=== PATIENT | male | born 1955 | race Caucasian/White ===

== ENCOUNTER 2021-02-08 12:35 | Outpatient (CLI) | payer MEDICARE, SELFPAY ==
--- NOTE | 2021-02-12 11:19 | WPDNEUROLOGY ---
Neurology EEG Report General Information Date of Study: 02/08/21 TEST EEG DIAGNOSIS SEIZURES CONDITION OF RECORDING awake drowsy and sleep EEG NUMBER [id number] CLINICAL HISTORY patient has ongoing history of multiple sclerosis and at present experiencing episodic nausea and feeling of having to have a bowel movements and also sweating. Last for few minutes then is fine again EEG DESCRIPTION basic resting occipital frequency consists of medium voltage 8 to 9 hertz per second alpha admixed with low-voltage 15 to 18 hertz per second beta. During drowsiness low-voltage beta activity seen diffusely. Bilateral symmetrical sleep activity seen during sleep. Non paroxysmal. Nonfocal. Nonlateralizing. Hyperventilation not done. Photic stimulation produced normal drive IMPRESSION normal record
== END 2021-02-08 12:36 | disposition home or self-care (01) ==
PROVIDERS: Visit Provider Psychiatry & Neurology Neurology
DX: R56.9 Unspecified convulsions (principal)
CPT/HCPCS: 95816

== ENCOUNTER 2023-02-07 13:02 | Outpatient (CLI) | payer MEDICARE, SELFPAY ==
[2023-02-07 13:55] LABS: Basophils Absolute Auto 0.1 K/mm3 (0.0-0.1); Basophils Percent Auto 0.6 % (0.2-1.2); Eosinophils Absolute Auto 0.1 K/mm3 (0-0.3); Eosinophils Percent Auto 0.7 % (0-4.4); Hematocrit 57.3 % (42.0-52.0); Hemoglobin 18.3 g/dL (14.0-18.0); Immature Granulocyte Absolute 0.03 K/mm3 (0.00-0.031); Immature Granulocyte Percent A 0.2 % (0-0.5); Lymphocytes Absolute Auto 2.79 K/mm3 (0.9-3.2); Lymphocytes Percent Auto 23.2 % (18.3-44.2); Mean Corpuscular HGB Conc 31.9 g/dl (32-36); Mean Corpuscular Hemoglobin 30.7 pg (26-34); Mean Corpuscular Volume 96.1 fl (80-100); Mean Platelet Volume 9.6 fl (7.4-10.4); Monocytes Absolute Auto 0.9 K/mm3 (0.1-0.6); Monocytes Percent Auto 7.6 % (2.6-8.5); Neutrophils Absolute Auto 8.1 K/mm3 (1.3-6.7); Neutrophils Percent Auto 67.7 % (45.5-73.1); Platelet Count Result 245 k/mm3 (150-375); Red Blood Count 5.96 M/mm3 (4.6-6.20); Red Cell Distribution Width 13.7 % (11.5-14.5)
[2023-02-07 15:53] LABS: Alanine Aminotransferase 24 U/L (6-50); Albumin Level 4.2 g/dL (3.5-5.1); Alkaline Phosphatase 67 U/L (38-126); Anion Gap 7 mmol/L (8-16); Aspartate Amino Transferase 23 U/L (17-59); Bilirubin,Total 0.7 mg/dL (0.2-1.3); Blood Urea Nitrogen 7 mg/dL (9-20); Calcium 8.6 mg/dL (8.4-10.2); Carbon Dioxide 28 mmol/L (22-30); Chloride 103 mmol/L (98-107); Cholesterol 162 mg/dL (0-200); Estimated Glomerular Filt Rate > 60; Glucose 83 mg/dL (65-110); HDL Direct 56 mg/dL; Potassium 4.3 mmol/L (3.4-5.0); Sodium 138 mmol/L (137-145); Triglycerides 91 mg/dL (<150)
[2023-02-07 16:13] LABS: LDL Cholesterol Direct 80 mg/dL
[2023-02-07 16:32] LABS: Prostate Specific Antigen 1.1 ng/mL (< OR = 4.0); Thyroid Stimulating Hormone 0.324 uIU/mL (0.465-4.680)
== END 2023-02-07 13:03 | disposition home or self-care (01) ==
PROVIDERS: PCP Physician Assistant; Visit Provider Physician Assistant
DX: R53.83 Other fatigue (principal); Z12.5 Encounter for screening for malignant neoplasm of prostate; I10 Essential (primary) hypertension
CPT/HCPCS: 36415; 80053; 80061; 84153; 84443; 85025; G0103

== ENCOUNTER 2024-09-01 11:23 | Outpatient (CLI) | payer MEDICARE, SELFPAY ==
[2024-09-01 12:19] LABS: Cholesterol 191 mg/dL (0-200); HDL Direct 53 mg/dL; Triglycerides 105 mg/dL (<150)
[2024-09-01 12:29] LABS: LDL Cholesterol Direct 112 mg/dL
[2024-09-01 12:44] LABS: Iron 112 ug/dL (49-181)
[2024-09-01 12:49] LABS: Prostate Specific Antigen 1.3 ng/mL (< OR = 4.0); Thyroid Stimulating Hormone 0.282 uIU/mL (0.465-4.680)
[2024-09-01 12:54] LABS: Percent Iron Saturation 34 % (20-50)
[2024-09-01 13:26] LABS: Folic Acid > 20.0 ng/mL (2.76->20)
[2024-09-03 05:58] LABS: T3 Free 3.4 pg/mL (2.3-4.2)
== END 2024-09-01 11:24 | disposition home or self-care (01) ==
PROVIDERS: PCP Physician Assistant; Visit Provider Internal Medicine
DX: R53.83 Other fatigue (principal); E05.90 Thyrotoxicosis, unspecified without thyrotoxic crisis or storm; I10 Essential (primary) hypertension; Z12.5 Encounter for screening for malignant neoplasm of prostate; D64.9 Anemia, unspecified; R79.89 Other specified abnormal findings of blood chemistry
CPT/HCPCS: 36415; 80061; 82607; 82746; 83540; 83550; 84153; 84439; 84443; 84480; G0103

== ENCOUNTER 2025-07-26 13:25 | Inpatient (IN) | payer MEDICARE, SELFPAY ==
--- OUTSIDE RECORDS SUMMARY | 2025-06-30 19:00 | XMS_ITS | Continuity of Care Document ---
Author Organization [facility] Address [address] [place] [phone] Phone Care Team Providers Care Precision Instrument Maker Name Role Phone Tejinder KEATING, FACC, Rohit Unavailable Unavail able Procedures Procedure Date ELECTROCARDIOGRAM REPORT EXTRACRANIAL STUDY TTE W/DOPPLER, COMPLETE Advance Directives Directive Yes / No Effective Date File Name No Information Encounters Encounter Description Practice Location Reason(s) For Visit Diagnoses Date Provider Providers Copied on Encounter [facility], [address] [place] [address], [id number], tel:[phone] [facility] Inpt No Information Tejinder Bee. [address] [place] [address], [id number], . tel:[phone] Referring Provider: Rohit Hatch, [address] [place] [address], [id number]. tel:[phone] [facility], [address] [place] [address], [id number], tel:[phone] [facility] OP No Information Tejinder Bee. [address] [place] [address], [id number], . tel:[phone] Referring Provider: Rohit Hatch, [address] [place], [place] [address] [place], [address]. tel:[phone] [facility], [address] [place] [address], [id number], tel:[phone] [facility] OP No Information Tejinder Bee. [address], [place], [place], [id number], . tel:[phone] Referring Provider: Rohit Hatch, [address], [place], [address]. tel:[phone] Family History Family Member Type Diagnosis Age At Onset No Information Payers Payer name Insurance type Covered democrat ID Authoriza tianaid(s) [facility] MEDICARE ADVANTAGE HMO [id number] 5 Social History Type Description Quantity Date [...]
[2025-07-26] VITALS (31 sets, daily range): BP systolic 84–113; BP diastolic 52–71; PULSE 87–107; RESP 16–31; TEMP 36.6–37.1; O2SAT 88–100
--- NOTE | ~2025-07-26 | XR_ITS ---
Abdominal radiograph(s) INDICATION: Ileus COMPARISON: CT abdomen and pelvis one day prior TECHNIQUE: Supine and upright AP abdomen FINDINGS: Colonic gaseous distention. Distal small bowel gaseous distention. No air-fluid levels but lower abdomen obscured by shielding. Rectal stool ball persists. IMPRESSION: 1. Persistent ileus. 2. No air-fluid levels but lower abdomen obscured by shielding. 3. Recommend continued x-ray surveillance if indicated. Reviewed, dictated and finalized at location R.
--- NOTE | ~2025-07-26 | XR_ITS ---
EXAMINATION: XR chest 1V portable DATE: 08/07/2025 14:27 INDICATION: Hypoxia TECHNIQUE: frontal view of the chest was obtained. COMPARISON: Chest radiograph dated 07/31/[address] dated 08/04/2025 FINDINGS: Mild increased lucency upper lung zones consistent with emphysema better appreciated on prior CT. Calcified nodule at the right costophrenic angle consistent with old granulomatous disease. Increased interstitial pattern with some peripheral Fahad B-lines in the bilateral lower lung zones consistent with mild pulmonary edema. There are additional linear and bandlike opacities in bilateral lower lung zones and would favor atelectasis over pneumonia. No pneumothorax. Mild blunting at the left cardiophrenic angle consistent with small left pleural effusion. Heart size is normal. IMPRESSION: 1. Mild increased interstitial opacities and a few curly B-lines at the bilateral lower lungs consistent with mild pulmonary edema. 2. Predominantly linear and bandlike opacities at the bilateral lower lung zones and favor atelectasis over pneumonia. 3. Small left pleural effusion. 4. Mild emphysema. Reviewed, dictated and finalized at location A. IMPRESSION: 1. Mild increased interstitial opacities and a few curly B-lines at the bilater al lower lungs consistent with mild pulmonary edema. 2. Predominantly linear and bandlike opacities at the bilateral lower lung zone s and favor atelectasis over pneumonia. 3. Small left pleural effusion. 4. Mild emphysema.
--- NOTE | ~2025-07-26 | XR_ITS ---
XR chest 1V portable 07/26/2025 15:12 Indication: Sepsis Procedure: AP portable chest Comparison: No prior studies for comparison. Findings: Cardiomegaly. No focal air space disease, pulmonary edema, pleural effusion or suspected pneumothorax. The lungs are hyperinflated which is consistent with, but not diagnostic of chronic obstructive pulmonary disease. No acute osseous abnormality. Impression: 1: No acute cardiopulmonary disease. Reviewed, dictated and finalized at location O. Impression: 1: No acute cardiopulmonary disease.
--- NOTE | ~2025-07-26 | CT_ITS ---
EXAMINATION: CT abdomen pelvis w con DATE: 08/09/2025 12:20 INDICATION: Abdominal distention TECHNIQUE: Computed tomography (CT) of the abdomen and pelvis was performed with 100 mL Omnipaque-350 intravenous contrast. Automated exposure control and iterative reconstruction technique were employed. The dose-length product was 485.41 mGy-cm. COMPARISON: 07/26/2025 FINDINGS: Moderate emphysema bilateral lung bases. Calcified right lower lobe nodule consistent with old granulomatous disease. Small bilateral posterior layering pleural effusions with dependent atelectasis in both lower lobes. Heart size is normal. Atherosclerotic coronary artery calcific location. No pericardial effusion. Small sliding-type hiatal hernia. Liver, gallbladder, spleen, pancreas, bilateral adrenal glands and right kidney are normal. 2 cm left renal cyst. Mondragon catheter within the decompressed bladder which demonstrates wall thickening and mild stranding surrounding fat suspicious for cystitis. Moderate amount of distal predominant colonic stool with 6.6 cm diameter ball of stool the rectum. There is mild stranding in the perirectal and presacral fat consistent with secondary stercoral colitis. Small bowel and appendix are normal. Minimal scattered ascites with largest pocket measuring 2.8 x 1.6 cm along the anteromedial margin of the spleen. No abscess or free intraperitoneal gas. No pathologically enlarged abdominal or pelvic lymphadenopathy. Intertrochanteric/subtrochanteric fracture of the proximal right femur which is fixed with an antegrade intramedullary boo and interlocking femoral neck dynamic compression screw. Mild lumbar levocurvature with mild spondylosis. IMPRESSION: 1. Emphysema with small bilateral pleural effusions and dependent compressive atelectasis in the bilateral lower lobes. 2. Inflammatory stranding surrounding the rectum where there is a 6.6 cm ball of stool suggestive of stercoral colitis. 3. Bladder wall thickening with some additional stranding in the surrounding fat suspicious for cystitis. Correlate with urinalysis. 4. Small sliding-type hiatal hernia. Reviewed, dictated and finalized at location A. IMPRESSION: 1. Emphysema with small bilateral pleural effusions and dependent compressive a telectasis in the bilateral lower lobes. 2. Inflammatory stranding surrounding the rectum where there is a 6.6 cm ball o f stool suggestive of stercoral colitis. 3. Bladder wall thickening with some additional stranding in the surrounding fa t suspicious for cystitis. Correlate with urinalysis. 4. Small sliding-type hiatal hernia.
--- NOTE | ~2025-07-26 | XR_ITS ---
EXAMINATION: XR chest 1V portable 08/08/2025 14:59 INDICATION: Shortness of breath TECHNIQUE:Portable AP upright frontal COMPARISON: 07/31/2025 FINDINGS: Heart is enlarged, unchanged. No pneumothorax. Small left-sided pleural effusion similar to the prior study. Small to moderate-sized patchy opacities in the left mid and lower lungs similar to the prior study. Small patchy opacities in the right mid and lower lungs similar to the prior study. Stable small calcified granuloma in the right lower lung. IMPRESSION: 1: Small left-sided pleural effusion similar to the prior study. Consider a chest CT. 2. Small to moderate-sized patchy opacities in the left mid and lower lungs similar to the prior study. Recommend follow-up to resolution. 3. Small patchy opacities in the right mid and lower lungs similar to the prior study. Reviewed, dictated and finalized at location Q. IMPRESSION: 1: Small left-sided pleural effusion similar to the prior study. Consider a ch est CT. 2. Small to moderate-sized patchy opacities in the left mid and lower lungs si milar to the prior study. Recommend follow-up to resolution. 3. Small patchy opacities in the right mid and lower lungs similar to the prio r study.
--- NOTE | ~2025-07-26 | XR_ITS ---
EXAMINATION: XR abdomen/kub 1V DATE: 08/08/2025 14:59 INDICATION: Abdominal distention. Nausea. TECHNIQUE: A supine view of the abdomen on 2 radiographs was obtained. COMPARISON: None. FINDINGS: Hardware is noted in the fracture of the proximal right femur. Correlate clinically. Bones appear osteopenic. Patchy opacities in the visualized left lower lung. Possible small left-sided pleural effusion. Moderate amount of air in nondilated large bowel. There is air in mildly dilated small bowel loops in the left abdomen. IMPRESSION: 1. Mildly dilated air-filled loops of small bowel in the left abdomen. Differential includes ileus or developing small bowel obstruction. Consider a CT of the abdomen and pelvis for further assessment. 2.Hardware is noted in the fracture of the proximal right femur. Correlate clinically. 3.Patchy opacities in the visualized left lower lung. Possible small left-sided pleural effusion. Reviewed, dictated and finalized at location Q. IMPRESSION: 1. Mildly dilated air-filled loops of small bowel in the left abdomen. Differen tial includes ileus or developing small bowel obstruction. Consider a CT of the abdomen and pelvis for further assessment. 2.Hardware is noted in the fracture of the proximal right femur. Correlate clin ically. 3.Patchy opacities in the visualized left lower lung. Possible small left-sided pleural effusion.
--- NOTE | ~2025-07-26 | CT_ITS ---
EXAMINATION: CTA chest DATE: 08/04/2025 21:45 INDICATION: Hypoxia. TECHNIQUE: Computed tomography angiography (CTA) of the chest was performed with 100 mL Omnipaque-350 intravenous contrast timed to evaluate the pulmonary arteries. Coronal maximum intensity projection 3D-reconstructions were created by the technologist. Automated exposure control and iterative reconstruction technique were employed. The dose-length product was 511.21 mGy-cm. COMPARISON: CT abdomen and pelvis 07/26/2025 FINDINGS: There is mild emphysema. There is smooth septal thickening lungs, consistent with mild pulmonary edema. There is dependent atelectasis bilaterally. There are small pleural effusions. There are nodules in the thyroid measuring up to 7 mm, likely not clinically significant. The heart size is no rmal. There are coronary artery calcifications. No pericardial effusion. There is no pulmonary embolus. There is a 2.1 cm cyst in left kidney. There is mild thoracic spondylosis. IMPRESSION: 1. No pulmonary embolus. 2. Mild pulmonary edema. 3. Small pleural effusions. 4. Mild emphysema. Reviewed, dictated and finalized at location E.
--- NOTE | ~2025-07-26 | CT_ITS ---
EXAMINATION: CT abdomen pelvis w con DATE: 07/26/2025 18:24 INDICATION: Assess depth of sacral ulcer. TECHNIQUE: Computed tomography (CT) of the abdomen and pelvis was performed with intravenous contrast. The dose-length product was 415.71 mGy-cm. COMPARISON: None. FINDINGS: Lung bases unremarkable. Heart size normal. No significant pleural or pericardial effusion. Study limited by motion. Fatty infiltration of the liver. The spleen, pancreas, adrenal glands and right kidney are unremarkable. There is a left renal cyst. There is fluid throughout the small bowel with air-fluid levels, consistent with ileus. Mondragon catheter present in the bladder. There is fatty infiltration with associated soft tissue gas in the posterior soft tissues at the level of the ischium, compatible with ulceration. No discrete drainable fluid collection identified. The mild phlegmonous change extends 2.2 cm deep to the skin surface, best seen on images [id number]. There is moderate colonic fecal loading in the rectum. There is a right femoral dynamic compression screw transfixing the femoral neck. There is an age-indeterminate proximal femoral fracture transfixed by intramedullary boo and compression screw. No significant vascular abnormality. No lymphadenopathy. IMPRESSION: 1. Small focal ulceration with mild inflammatory change involving the posterior soft tissues just below the coccyx. No drainable fluid collection identified. 2: Moderately distended small bowel and colon with air-fluid levels, consistent with ileus. Reviewed, dictated and finalized at location O.
--- NOTE | ~2025-07-26 | CT_ITS ---
EXAMINATION: CT brain wo con DATE: 07/26/2025 22:55 INDICATION: Confusion TECHNIQUE: Computed tomography (CT) of the head was performed without intravenous contrast. Sagittal and coronal reconstructions were performed. The mA was adjusted according to patient size. Iterative reconstruction technique was employed. The dose-length product was 756.67 mGy-cm. COMPARISON: None FINDINGS: No acute intracranial hemorrhage, acute infarction or abnormal extra axial fluid collection. There is moderate scattered white matter hypoattenuation consistent with chronic small vessel ischemic disease. Symmetric prominence of the sulci and ventricles consistent with mild to moderate age-appropriate diffuse cerebral and cerebellar volume loss. No mass/mass effect. Mild mucosal thickening in the left sphenoid sinus. The orbits and mastoid air cells are normal. IMPRESSION: 1. Age-related changes including mild to moderate diffuse volume loss and moderate scattered white matter hypoattenuation consistent with chronic small vessel ischemic disease. No acute intracranial process. Reviewed, dictated and finalized at location A. IMPRESSION: 1. Age-related changes including mild to moderate diffuse volume loss and moder ate scattered white matter hypoattenuation consistent with chronic small vessel ischemic disease. No acute intracranial process.
--- NOTE | ~2025-07-26 | XR_ITS ---
Examination: XR chest 1V portable Clinical History: hypoxia Comparison: 07/26/2025 Technique: Portable AP Findings: Heart size enlarged. Retrocardiac opacity and CP angle blunting. Mildly increased interstitial markings. No acute bony abnormality. IMPRESSION: 1. Left basilar atelectasis and/or airspace disease. 2. Small left effusion not excluded. 3. Suspect developing mild interstitial pulmonary edema. Reviewed, dictated and finalized at location R.
--- NOTE | ~2025-07-26 | XR_ITS ---
EXAMINATION: XR abdomen obstructive series DATE: 07/28/2025 10:58 INDICATION: Ileus TECHNIQUE: Supine and upright views of the abdomen. FINDINGS: 07/27/2025 There is left lower lobe airspace disease, suspicious for pneumonia. Small left pleural effusion.. There is a nonobstructive bowel gas pattern. Gas and stool are seen throughout the colon to the level of the rectum. There is no free air. There is prominent fecal loading of the colon and rectum. IMPRESSION: 1. Left lower lobe airspace disease, suspicious for pneumonia. 2: Small left pleural effusion. Reviewed, dictated and finalized at location O.
--- NOTE | ~2025-07-26 | XR_ITS ---
Abdominal radiograph(s) INDICATION: Nausea, constipation COMPARISON: 5 days prior TECHNIQUE: Supine AP abdomen, upright AP abdomen FINDINGS: Retrocardiac opacity probably persists. Scattered colonic gas, and stool distally. Small bowel gaseous distention. No air-fluid levels noted but upright film only contains uppermost abdomen. No evidence of organomegaly. No abnormal abdominal calcifications. No acute bony abnormality. IMPRESSION: 1. No acute findings. 2. No increased stool burden to suggest large volume constipation. Reviewed, dictated and finalized at location R.
--- NOTE | 2025-07-26 14:41 | ECG_ITS ---
Test Date: 2025-07-26 15:23:21 Measurements Intervals [place] Rate: 107 P: 70 MO: 139 QRS: 80 QRSD: 81 T: 19 QT: 311 QTc: 415 Interpretive Statements SINUS TACHYCARDIA ABNORMAL RHYTHM ECG No previous ECG available for comparison Electronically Signed On 07-26-2025 15:57:09 CDT by Dulce Maria Faust M.D.
[2025-07-26 15:26] LABS: Fractional Inspired Oxygen 21 %; HCO3 VBG 31.1 mEq/l (24.0-30.0); PCO2 VBG 47.0 mmHg (42.0-48.0)
[2025-07-26 15:34] LABS: Hematocrit 44.8 % (42.0-52.0); Hemoglobin 13.9 g/dL (14.0-18.0); Immature Granulocyte Percent A 1.8 % (0-0.5); Lymphocytes Absolute Auto 1.90 K/mm3 (0.9-3.2); Mean Corpuscular HGB Conc 31.0 g/dl (32-36); Mean Corpuscular Hemoglobin 28.9 pg (26-34); Mean Corpuscular Volume 93.1 fl (80-100); Nucleated Red Blood Cells Absolute Auto 0.000 K/mm3 (0.0-0.012); Nucleated Red Blood Cells Perc 0.0 % (0.0-0.2); Platelet Count Result 369 k/mm3 (150-375); Red Blood Count 4.81 M/mm3 (4.6-6.20); White Blood Count 17.5 K/mm3 (4.5-10.0)
[2025-07-26 15:38] LABS: Liters per Minute 0.0 LPM; PO2 VBG < 27.0 mmHg (35.0-45.0); pH VBG 7.439 (7.300-7.400)
[2025-07-26 15:45] LABS: Alanine Aminotransferase 112 U/L (6-50); Albumin Level 3.0 g/dL (3.5-5.1); Alkaline Phosphatase 285 U/L (38-126); Anion Gap 5 mmol/L (4-12); Aspartate Amino Transferase 44 U/L (17-59); Bilirubin,Total 0.6 mg/dL (0.2-1.3); Blood Urea Nitrogen 14 mg/dL (9-20); Calcium 8.3 mg/dL (8.4-10.2); Carbon Dioxide 30 mmol/L (22-30); Chloride 98 mmol/L (98-107); Estimated CRCL calculation 109 ml/min; Estimated Glomerular Filt Rate > 60; Glucose 113 mg/dL (65-110); Magnesium 2.0 mg/dL (1.6-2.3); Potassium 4.5 mmol/L (3.4-5.0); Sodium 133 mmol/L (137-145); Total Protein 6.5 g/dL (6.3-8.2)
[2025-07-26] MEDS: metroNIDAZOLE 500 MG/ISO 100ML 500 MG/100 ML BAG 100 MG IVPB ×2 (15:56→22:04)
[2025-07-26] MEDS: LACTATED RINGERS 100 ML 999 ML IV CONT (15:58)
[2025-07-26] MEDS: LACTATED RINGERS 1,000 ML 999 ML IV CONT ×2 (15:58)
[2025-07-26] MEDS: CEFEPIME 2 GM in SODIUM CHLORIDE 0.9% IV 50 ML 100 ML IVPB (16:01)
--- NOTE | 2025-07-26 16:06 | ED.RECABL ---
HPI - Recheck/Abnormal Lab/Rx General Chief Complaint: Recheck/Abnormal Lab/Rx Stated Complaint: infected feet/sacrum Time Seen by Provider: 07/26/25 13:31 History of Present Illness HPI narrative: This is a 69-year-old bed-bound care home patient presenting for altered mental status. Per the care home he is more confers than usual. He has decubitus ulcers to his heels as well as a large sacral decubitus ulcer. Patient himself has no complaints and is A&O x3. Related Data Home Medications ?Medication ?Instructions ?Recorded ?Confirmed ?Last Taken ?Type diphenhydramine HCl 25 mg tablet 25 mg PO QHS PRN 08/06/22 03/06/25 Unknown History (Benadryl Allergy) Allergies Allergy/AdvReac Type Severity Reaction Status Date / Time No Known Allergies Allergy Verified 03/02/25 14:55 [facility] Past Medical History Medical History BMI 22.0-22.9, adult Abnormal gait Surgical History Surgical History Hx of tonsillectomy Family History Family History Father Liver cancer Mother No problems noted. Sibling No problems noted. Social History Social History Smoking packs per day: 1.5 Smoking cigarettes per day: 30.0 Years smoked: 50 Smoking pack-years: 75.00 Smoking status: Current every day smoker Second hand tobacco smoke exposure: Yes Alcohol intake: current Substance use: never Substance use type: does not use Do You Feel Safe in your Home?: Yes Lack of Transportation: No Lack of Food: Never True Current Housing: I Have Housing Concerned About Future Housing: No Difficulty Paying Gas/Electric Bills: No Difficulty Paying for Meds: No Currently Unemployed: No Education: High School Diploma/GED Difficulty w/ Childcare or Family Care: No Living arrangements: alone Occupation/Education: retired Additional occupation/education comments: [employer] Gender identity (if verbalized by the patient): Male Exam Narrative: APPEARANCE: No apparent distress. Head: atraumatic. EYES: EOMI, NOSE: Atraumatic NECK: Trachea midline RESPIRATORY: No increased rate of breathing CTAB CARDIOVASCULAR: RRR, no peripheral edema ABDOMINAL: Non-distended soft nontender MUSCULOSKELETAl: No obvious deformities NEURO: Alert. Moving 4/4 extremities SKIN:: Large unstageable foul smelling sacral ulcer, stage II pressure ulcer to the lateral right foot, stage II pressure ulcer to the left heel, stage II pressure ulcer to the left hip, bruising to the right hip PSYCHIATRIC: Normal affect Course Vital Signs Vital signs: Vital Signs Temperature 97.9 F 07/26/25 13:26 Pulse Rate 102 H 07/26/25 13:26 Respiratory Rate 16 07/26/25 13:26 Blood Pressure 113/71 07/26/25 13:26 Pulse Oximetry 96 07/26/25 13:26 Oxygen Delivery Nasal Cannula 07/26/25 13:26 Oxygen Flow Rate 2 07/26/25 13:26 Temperature 98.7 F 07/26/25 16:11 Pulse Rate 89 07/26/25 17:43 Respiratory Rate 20 07/26/25 17:43 Blood Pressure 108/56 L 07/26/25 17:43 Pulse Oximetry 97 07/26/25 17:43 Oxygen Delivery Nasal Cannula 07/26/25 13:26 Oxygen Flow Rate 2 07/26/25 13:26 MDM - Recheck/Abnormal Lab/Rx MDM Narrative Medical decision making narrative: -Course: 69-year-old male presenting with altered mental status. Patient has multiple pressure ulcers and the ulcer on his sacrum appears infected. On arrival patient's blood pressures are soft and 91/67 although this was not documented by nursing staff. Patient given 30 cc/kilogram bolus. Started on antibiotics for infected ulcer. Wound Care was consulted. CT abdomen pelvis showed a decubitus ulcer without abscess. Also possible ileus. White count 17.5. Lactic normal. The rest the labs within normal limits. Patient will be admitted the hospital for further management his infected sacral decubitus ulcer. General surgery is been consult. -DDX includes but is not limited to: Infected ulcer, sepsis dehydration UTI pneumonia Lab Data 07/26/25 15:26 07/26/25 15:26 Labs: Lab Results 07/26/25 07/26/25 07/26/25 Range/Units 15:19 15:26 17:18 WBC 17.5 H (4.5-10.0) K/mm3 RBC 4.81 (4.6-6.20) M/mm3 Hgb 13.9 L D (14.0-18.0) g/dL Hct 44.8 (42.0-52.0) % MCV 93.1 (80-100) fl MCH 28.9 (26-34) pg MCHC 31.0 L (32-36) g/dl RDW 14.1 (11.5-14.5) % Plt Count 369 D (150-375) k/mm3 MPV 9.9 (7.4-10.4) fl Immature Gran % (Auto) 1.8 H (0-0.5) % Neut % (Auto) 76.9 H (45.5-73.1) % Lymph % (Auto) 10.8 L (18.3-44.2) % [place]lee % (Auto) 6.8 (2.6-8.5) % Eos % (Auto) 3.2 (0-4.4) % Baso % (Auto) 0.5 (0.2-1.2) % Lymph # (Auto) 1.90 (0.9-3.2) K/mm3 Greenlee # (Auto) 1.2 H (0.1-0.6) K/mm3 Eos # (Auto) 0.6 H (0-0.3) K/mm3 Baso # (Auto) 0.1 (0.0-0.1) K/mm3 Abs Immat Gran (auto) 0.32 H (0.00-0.031) K/mm3 Absolute Neuts (auto) 13.5 H (1.3-6.7) K/mm3 Absolute Nucleated RBC 0.000 (0.0-0.012) K/mm3 Nucleated RBC % 0.0 (0.0-0.2) % Sodium 133 L (137-145) mmol/L Potassium 4.5 (3.4-5.0) mmol/L Chloride 98 (98-107) mmol/L Carbon Dioxide 30 (22-30) mmol/L Anion Gap 5 (4-12) mmol/L BUN 14 D (9-20) mg/dL Creatinine 0.54 L (0.7-1.3) mg/dL Estim Creat Clear Calc 109 ml/min Estimated GFR > 60 (59 - ) Glucose 113 H (65-110) mg/dL POC Capillary Glucose 96 (65-105) mg/dl Lactic Acid 1.7 (0.7-2.0) mmol/L Calcium 8.3 L (8.4-10.2) mg/dL Magnesium 2.0 (1.6-2.3) mg/dL Total Bilirubin 0.6 (0.2-1.3) mg/dL AST 44 (17-59) U/L ALT 112 H (6-50) U/L Alkaline Phosphatase 285 H (38-126) U/L Total Protein 6.5 (6.3-8.2) g/dL Albumin 3.0 L (3.5-5.1) g/dL Urine Color Red H (Yellow) Urine Appearance Turbid H (Clear) Urine pH 6.0 (5.0-9.0) Ur Specific [place] 1.015 (1.001-1.035) Urine Protein 2+ H (Negative) mg/dL Urine Glucose (UA) Negative (Negative) mg/dL Urine Ketones Negative (Negative) mg/dL Ur Blood (Man) 3+ H (Negative) Urine Nitrate Negative (Negative) Urine Bilirubin 1+ H (Negative) Urine Urobilinogen 1.0 (<2.0) mg/dL Leukocyte Esterase Rfl 2+ H (Negative) DEVON/UL Urine RBC 51-100 H (0-2) /hpf Urine WBC 11-20 H (0-3) /hpf Ur Squamous Epith Cells None seen (Few) /hpf Urine Bacteria Trace (None) /hpf Hyaline Casts 0-2 (None) /lpf Nasal MRSA (PCR) Not detected (NOT DETECTE) ABG Data ABG results: 07/26/25 15:25 VBG pH 7.439 H* VBG pCO2 47.0 VBG pO2 < 27.0 L VBG HCO3 31.1 H O2 Delivery Device Room air O2 Liters/Min 0.0 FiO2 21 Discharge Plan Discharge Clinical Impression: Decubitus ulcer, infected, Sepsis Patient Disposition: Still a Patient Condition: Stable Patient Language: Macedonian Prescriptions: No Action diphenhydramine HCl [Benadryl Allergy] 25 mg tablet 25 mg PO QHS PRN Breztri Aerosphere 160-9-4.8 mcg/actuation HFA aerosol inhaler 2 inh inhalation BID Qty: 10.7 3RF Rebif (with albumin) 44 mcg/0.5 mL syringe See Rx Instructions subcut 3XW Qty: 12 5RF Dose Instruction: INJECT 44MCG (0.5ML) UNDER THE SKIN 3 TIMES PER WEEK Rx Instructions: INJECT 44MCG (0.5ML) UNDER THE SKIN 3 TIMES PER WEEK subcutaneously 3 times a week; Follow-up/Referrals: Gino Morin MD [Primary Care Provider, Neurology]
[2025-07-26] MEDS: VANCOMYCIN 1,750 MG/NS 500 ML 1,750 MG/500 ML BAG 250 MG IVPB (16:48)
[2025-07-26 17:29] LABS: Add Urine Microscopic? YES
[2025-07-26 17:32] LABS: Appearance Urine Turbid (Clear); Glucose Urine UA Negative (Negative); Leukocyte Esterase Ur 2+ LEU/UL (Negative); Nitrate Urine Negative (Negative); Specific Grav Ur 1.015 (1.001-1.035)
[2025-07-26 18:36] LABS: MRSA (PCR) NOT DETECTED (NOT DETECTE)
--- NOTE | 2025-07-26 22:35 | P.HP_ITS ---
H&P: HPI History of Present Illness Date/Time: 07/26/25 22:35 Chief Complaint: Altered mental status Narrative: 69-year-old bed-bound [facility] patient presents with altered mental status, more confused than usual. Was apparently A&O x3 for the ER physician evaluation. He has a decubitus ulcer to the sacrum and left heel, right lateral foot with some purulence. Blood pressure soft. Patient given 30 cc per kg bolus. He was given cefepime vancomycin and metronidazole. CT abdomen pelvis shows decubitus ulcer without abscess, likely ileus as well. Lactic acid normal. White count 17 K, urinalysis grossly abnormal. Review of Systems Review of Systems: All systems reviewed & are unremarkable except as noted in HPI and below (Subjective) [facility] Past Medical History Medical History BMI 22.0-22.9, adult Abnormal gait Surgical History Surgical History Hx of tonsillectomy Family History Family History Father Liver cancer Mother No problems noted. Sibling No problems noted. Social History Social History Smoking packs per day: 1.5 Smoking cigarettes per day: 30.0 Years smoked: 50 Smoking pack-years: 75.00 Smoking status: Current every day smoker Second hand tobacco smoke exposure: Yes Alcohol intake: current Substance use: never Substance use type: does not use Do You Feel Safe in your Home?: Yes Lack of Transportation: No Lack of Food: Never True Current Housing: I Have Housing Concerned About Future Housing: No Difficulty Paying Gas/Electric Bills: No Difficulty Paying for Meds: No Currently Unemployed: No Education: High School Diploma/GED Difficulty w/ Childcare or Family Care: No Living arrangements: alone Occupation/Education: retired Additional occupation/education comments: [employer] Gender identity (if verbalized by the patient): Male Meds Home Medications and Allergies Home Medications ?Medication ?Instructions ?Recorded ?Confirmed ?Type diphenhydramine HCl 25 mg tablet 25 mg PO QHS PRN 10/0 02/2203/06/25 History (Benadryl Allergy) budesonide 160 mcg-glycopyr 9 2 inh inhalation BID #10 .7 grams 02/17/25 03/06/25 Rx mcg-formot 4.8 mcg/actuation HFA inhaler (Breztri Aerosphere) interferon beta-1a (albumin) 44 See Rx Instructions [place] bcut 3XW #12 05/05/25 Rx mcg/0.5 mL subcutaneous syringe syringes (Rebif (with albumin)) Allergies Allergy/AdvReac Type Severity Reaction Status Date / Time No Known Allergies Allergy Verified 03/02/25 14:55 Vital Signs Vital Signs - 24 hr 07/26/25 13:26 07/26/25 13:36 07/26/25 13:45 Temperature 97.9 F Pulse Rate 102 H 95 94 Respiratory Rate 16 21 H 24 H Blood Pressure 113/71 Pulse Oximetry 96 Oxygen Delivery Nasal Cannula Oxygen Flow Rate 2 07/26/25 14:22 07/26/25 14:30 07/26/25 14:31 Temperature Pulse Rate 100 105 H 104 H Respiratory Rate 22 H 18 23 H Blood Pressure 84/58 L Pulse Oximetry 90 90 Oxygen Delivery Oxygen Flow Rate 07/26/25 15:14 07/26/25 15:15 07/26/25 15:30 Temperature Pulse Rate 102 H 99 107 H Respiratory Rate 25 H 28 H 23 H Blood Pressure Pulse Oximetry Oxygen Delivery Oxygen Flow Rate 07/26/25 15:35 07/26/25 15:45 07/26/25 16:00 Temperature Pulse Rate 106 H 105 H 100 Respiratory Rate 27 H 28 H 23 H Blood Pressure 103/66 109/62 Pulse Oximetry 88 L 96 97 Oxygen Delivery Oxygen Flow Rate 07/26/25 16:01 07/26/25 16:11 07/26/25 16:15 Temperature 98.7 F Pulse Rate 100 102 H 98 Respiratory Rate 20 22 H 28 H Blood Pressure 109/62 Pulse Oximetry 97 97 99 Oxygen Delivery Oxygen Flow Rate 07/26/25 16:31 07/26/25 17:36 07/26/25 17:43 Temperature Pulse Rate 96 91 89 Respiratory Rate 26 H 19 20 Blood Pressure 108/56 L Pulse Oximetry 97 Oxygen Delivery Oxygen Flow Rate 07/26/25 17:45 07/26/25 18:00 07/26/25 18:01 Temperature Pulse Rate 87 92 90 Respiratory Rate 23 H 23 H 28 H Blood Pressure 96/68 L Pulse Oximetry Oxygen Delivery Oxygen Flow Rate 07/26/25 18:26 07/26/25 18:27 07/26/25 18:30 Temperature Pulse Rate 98 98 95 Respiratory Rate 21 H 31 H 27 H Blood Pressure 110/58 L 106/59 L Pulse Oximetry 97 98 99 Oxygen Delivery Oxygen Flow Rate 07/26/25 18:31 07/26/25 18:56 07/26/25 19:00 Temperature Pulse Rate 94 93 91 Respiratory Rate 27 H 20 20 Blood Pressure 106/57 L Pulse Oximetry 99 94 94 Oxygen Delivery Oxygen Flow Rate 07/26/25 19:24 07/26/25 20:00 07/26/25 20:30 Temperature Pulse Rate 95 93 95 Respiratory Rate 17 22 H 17 Blood Pressure 106/57 L 108/52 L 95/59 L Pulse Oximetry 95 94 92 Oxygen Delivery Oxygen Flow Rate Exam Const: General: comfortable and no acute distress Other: Confuse, A&O x1 HENMT: Mouth: Yes dry mucous membranes Other: Poor dentition Resp: Effort & Inspection: normal respiratory effort Auscultation: clear to auscultation bilaterally Cardio: Rate: regular rate Rhythm: regular rhythm GI: Inspection: distended GI Palp: Yes Soft to palpation and No Tenderness to palpation present (GI) : General: Yes bladder normal to palpation Extrem: General: no edema H&P: Results Labs Labs: Short CBC 07/26/25 Range/Units 15:26 WBC 17.5 H (4.5-10.0) K/mm3 Hgb 13.9 L D (14.0-18.0) g/dL Hct 44.8 (42.0-52.0) % Plt Count 369 D (150-375) k/mm3 BMP 07/26/25 15:26 Sodium 133 L Potassium 4.5 Chloride 98 Carbon Dioxide 30 BUN 14 D Creatinine 0.54 L Glucose 113 H Calcium 8.3 L Liver Function 07/26/25 Range/Units 15:26 Total Bilirubin 0.6 (0.2-1.3) mg/dL AST 44 (17-59) U/L ALT 112 H (6-50) U/L Alkaline Phosphatase 285 H (38-126) U/L Albumin 3.0 L (3.5-5.1) g/dL Urine 07/26/25 Range/Units 15:26 Urine Color Red H (Yellow) Urine Appearance Turbid H (Clear) Urine pH 6.0 (5.0-9.0) Ur Specific [place] 1.015 (1.001-1.035) Urine Protein 2+ H (Negative) mg/dL Urine Glucose (UA) Negative (Negative) mg/dL Assessment and Plan Assessment and plan (1) Sepsis: Code(s): A41.9 - Sepsis, unspecified organism Status: Acute (2) Decubitus ulcer, infected: Code(s): L89.90 - Pressure ulcer of unspecified site, unspecified stage; L08.9 - Local infection of the skin and subcutaneous tissue, unspecified Status: Acute (3) Leukocytosis: Code(s): D72.829 - Elevated white blood cell count, unspecified Status: Acute (4) Hypoxia: Code(s): R09.02 - Hypoxemia Status: Acute (5) Altered mental status: Code(s): R41.82 - Altered mental status, unspecified Status: Acute Plan 69-year-old bed-bound [facility] patient presents with altered mental status, more confused than usual. Was apparently A&O x3 for the ER physician evaluation. He has a decubitus ulcer to the sacrum and left heel, right lateral foot with some purulence. Blood pressure soft. Patient given 30 cc per kg bolus. He was given cefepime vancomycin and metronidazole. CT abdomen pelvis shows decubitus ulcer without abscess, likely ileus as well. Lactic acid normal. White count 17 K, urinalysis grossly abnormal. General surgery consulted ----- Continue cefepime metronidazole and vancomycin. Likely has metabolic encephalopathy due to UTI, infected sacral also or both. Will also perform further workup for altered mental status including CT head, ammonia, drugs of abuse screen, TSH, salicylates, acetaminophen. Fall precautions. He received 30 cc/kilogram fluid bolus in the ER. Blood pressure slightly improved. Continue with normal saline at 100 cc/hour. Hypoxia, 88% on room air 1 time. Lungs are clear, check quad viral screen. I reviewed the CT abdomen pelvis, lower lung farley are unremarkable. Abdominal distension, no pain. Likely has an ileus. Bowel rest. Accu-Cheks q.6 hours with hypoglycemia protocol. Full code. SCDs. Wound care consult. Hospitalist MIPS Advance Care Plan I have confirmed that the patient's Advanced Care Plan is present, code status is documented, or surrogate decision maker is listed in patient medical record.: Yes Medication Reconciliation I have utilized all available resources to obtain, update and review the patients current medications (includes all prescriptions, OTC, herbals, cannabis, and nutritional supplements).: Yes
[2025-07-26] MEDS: SODIUM CHLORIDE 0.9% IV 1,000 ML 100 ML IV CONT (23:09)
[2025-07-26 23:14] LABS: Cannabinoid Screen Urine Negative (Negative)
[2025-07-26 23:29] LABS: Thyroid Stimulating Hormone Reflex 0.559 uIU/mL (0.465-4.68)
[2025-07-26 23:46] LABS: Acetaminophen < 10 ug/mL (10-30); Ammonia < 9 umol/L (9-30); Salicylate < 1.0 mg/dL (2-20)
[2025-07-27] VITALS (23 sets, daily range): BP systolic 93–117; BP diastolic 49–70; PULSE 75–97; RESP 16–30; TEMP 36.1–37.1; O2SAT 93–100; BMI 20.5
[2025-07-27 00:07] LABS: Influenza A QL RT-PCR Negative (Negative); Influenza B QL RT-PCR Negative (Negative); RSV RNA, RT-PCR Negative (Negative); SARS-CoV-2 RNA PCR Negative (Negative)
--- NOTE | 2025-07-27 00:17 | WNDPHOTO ---
PHOTO ONLY - See Nursing Notes and/ or assessments for documentation.
--- NOTE | 2025-07-27 00:23 | WNDPHOTO ---
PHOTO ONLY - See Nursing Notes and/ or assessments for documentation.
--- NOTE | 2025-07-27 00:50 | ADMIMU ---
This patient, Bashir Gruber ., was admitted to IMU status, and placed in IMU Room 207-01. Patient/family oriented to hospital policies and general routines including ID bracelet, bed and alarms, visiting hours, pain management, procedures, bathroom and other care routines, personal items, smoking policy, room service/diet, and visiting hours. Valuables list has been completed. Information on how to activate the Rapid Response Team has been discussed. Patient/Family are encouraged to report perceived risks to care and to ask questions if they do not understand what they are told or what they should do.
[2025-07-27 04:00] LABS: Hematocrit 39.0 % (42.0-52.0); Hemoglobin 12.0 g/dL (14.0-18.0); Immature Granulocyte Percent A 2.2 % (0-0.5); Lymphocytes Absolute Auto 2.00 K/mm3 (0.9-3.2); Mean Corpuscular HGB Conc 30.8 g/dl (32-36); Mean Corpuscular Hemoglobin 29.0 pg (26-34); Mean Corpuscular Volume 94.2 fl (80-100); Nucleated Red Blood Cells Absolute Auto 0.000 K/mm3 (0.0-0.012); Nucleated Red Blood Cells Perc 0.0 % (0.0-0.2); Platelet Count Result 321 k/mm3 (150-375); Red Blood Count 4.14 M/mm3 (4.6-6.20); White Blood Count 16.7 K/mm3 (4.5-10.0)
[2025-07-27] MEDS: CEFEPIME 2 GM in SODIUM CHLORIDE 0.9% IV 50 ML 100 ML IVPB ×2 (05:02→17:30)
[2025-07-27] MEDS: VANCOMYCIN 1,500 MG/NS 500 ML 1,500 MG/500 ML BAG 250 MG IVPB ×2 (05:03→18:26)
[2025-07-27 05:27] LABS: Alanine Aminotransferase 75 U/L (6-50); Albumin Level 2.4 g/dL (3.5-5.1); Alkaline Phosphatase 219 U/L (38-126); Anion Gap 3 mmol/L (4-12); Aspartate Amino Transferase 30 U/L (17-59); Bilirubin,Total 0.4 mg/dL (0.2-1.3); Blood Urea Nitrogen 10 mg/dL (9-20); Calcium 7.9 mg/dL (8.4-10.2); Carbon Dioxide 26 mmol/L (22-30); Chloride 103 mmol/L (98-107); Estimated CRCL calculation 111 ml/min; Estimated Glomerular Filt Rate > 60; Glucose 107 mg/dL (65-110); Magnesium 1.9 mg/dL (1.6-2.3); Potassium 4.0 mmol/L (3.4-5.0); Sodium 132 mmol/L (137-145); Total Protein 5.2 g/dL (6.3-8.2)
[2025-07-27] MEDS: metroNIDAZOLE 500 MG/ISO 100ML 500 MG/100 ML BAG 100 MG IVPB ×3 (05:58→21:28)
[2025-07-27] MEDS: FLUTICASONE/UMECLIDIN/VILANTER 100-62.5-25 MCG ELLIPTA 1 PUFF INHALATION (08:12)
[2025-07-27] MEDS: SODIUM CHLORIDE 0.9% IV 1,000 ML 100 ML IV CONT (10:30)
--- NOTE | 2025-07-27 11:11 | PM.CNGS ---
Assessment and Plan Assessment and plan (1) Decubitus ulcer, infected: Code(s): L89.90 - Pressure ulcer of unspecified site, unspecified stage; L08.9 - Local infection of the skin and subcutaneous tissue, unspecified Status: Acute Assessment and Plan: Large unstageable necrotic sacral decubitus ulcer with purulent drainage and covered with a large eschar. This could be the source of his sepsis. Continue broad-spectrum IV antibiotics and local wound care preoperatively with Dakin's soaked gauze dressing changes. We would recommend proceeding with excisional debridement of the sacral decubitus ulcer, which will be done by Dr. Richardson. I discussed the procedure, risks, benefits, and alternaties with the patient and his POA. They agree with proceeding. Will proced to the OR later today. He also has a smaller, more stable and superficial appearing decubitus ulcer over the left greater trochanter. Will initiate local wound care. Would recommend frequent turning/pressure offloading. Will order specialty mattress given his extensive wounds. (2) Sepsis: Code(s): A41.9 - Sepsis, unspecified organism Status: Acute Assessment and Plan: Source likely related to decubitus ulcer vs UTI vs combination. Continue broad-spectrum IV antibiotics Blood cultures pending Plan to proceed to OR for source control (3) UTI (urinary tract infection): Code(s): N39.0 - Urinary tract infection, site not specified Status: Acute Assessment and Plan: Continue IV antibiotics. Urine culture pending (4) Multiple sclerosis: Code(s): G35 - Multiple sclerosis Status: Chronic (5) COPD (chronic obstructive pulmonary disease): Code(s): J44.9 - Chronic obstructive pulmonary disease, unspecified Status: Chronic Assessment and Plan: Reportedly diagnosed with COPD about a month ago and quit smoking at that time (6) Right foot ulcer: Code(s): L97.519 - Non-pressure chronic ulcer of other part of right foot with unspecified severity Status: Acute Assessment and Plan: Unstageable right lateral foot ulcer appears stable and does not appear to be infected. Will remove his heel boots and start having them elevate his heels off the bed as the boots are rubbing on this wound. Start local wound care to the right foot ulcer and monitor. Plan I have discussed the patient's case and plan of care with Dr. Richardson. History of Present Illness Consult details Consult date: 07/27/25 Reason for consult: other (Infected sacral decubitus ulcer) Requesting physician: Truong Melo MD Narrative: This is a 69-year-old man with history of MS and COPD, who we have been asked to see in surgical consultation for an infected sacral decubitus ulcer. His POA is at the bedside and helps provide majority of the history. The patient is alert oriented, but poor historian. The patient lives alone independently in his home up until a month ago after he had a fall resulting in a right hip fracture which subsequently required surgery. He was hospitalized at [facility] and eventually discharged to [facility]. His POA lives out of state, but would visit, and has noticed a rapid decline in the past month. She states he is not been getting therapy and would remain in the bed whenever she would visit. She was told he had a wound on his right lateral foot, but was also notified about a sacral wound 3 days ago that was found by the facility. She states that the facility called her yesterday and brought him in for evaluation of the sacral wound and concerns it was infected. In the ED, vitals showed mild tachycardia, tachypnea, and his blood pressure was as low as 84/58. [place] [address]. UA concerning for UTI. Urine culture pending. CT scan of the abdomen and pelvis showed small focal ulceration with mild inflammatory change involving the posterior soft tissues below the coccyx, and findings consistent with an ileus. He was admitted and started on broad-spectrum IV antibiotics. Blood cultures pending. He is now seen in the IMU with the POA at the bedside. Review of Systems Review of Systems: All systems reviewed & are unremarkable except as noted in HPI and below PMFSH Past Medical History Medical History Tobacco use COPD (chronic obstructive pulmonary disease) Multiple sclerosis BMI 22.0-22.9, adult Abnormal gait Surgical History Surgical History History of hip surgery Right hip pinning June 2024 at [place] Hx of tonsillectomy Family History Family History Father Liver cancer Mother No problems noted. Sibling No problems noted. Social History Social History Smoking packs per day: 1.5 Smoking cigarettes per day: 30.0 Years smoked: 50 Smoking pack-years: 75.00 Smoking status: Former smoker Second hand tobacco smoke exposure: Yes Alcohol intake: unknown Substance use: unknown Substance use type: unknown Do You Feel Safe in your Home?: Yes Lack of Transportation: No Lack of Food: Never True Current Housing: I Have Housing Concerned About Future Housing: No Difficulty Paying Gas/Electric Bills: No Difficulty Paying for Meds: No Currently Unemployed: No Education: High School Diploma/GED Difficulty w/ Childcare or Family Care: No Living arrangements: alone Occupation/Education: retired Additional occupation/education comments: [employer] Gender identity (if verbalized by the patient): Male Spiritual care concerns: No Meds Home Medications and Allergies Home Medications ?Medication ?Instructions ?Recorded ?Confirmed ?Type diphenhydramine HCl 25 mg tablet 25 mg PO QHS PRN rash 08/06/22 07/27/25 History (Benadryl Allergy) budesonide 160 mcg-glycopyr 9 2 inh inhalation BID #10.7 grams 02/17/25 07/27/25 Rx mcg-formot 4.8 mcg/actuation HFA inhaler (Breztri Aerosphere) interferon beta-1a (albumin) 44 See Rx Instructions subcut 3XW #12 05/05/25 07/27/25 Rx mcg/0.5 mL subcutaneous syringe syringes (Rebif (with albumin)) ascorbic acid (vitamin C) 500 mg 500 mg PO DAILY Wounds 07/27/25 07/27/25 History capsule,extended release clobetasol 0.05 % topical cream 1 applic topical BID rash 07/27/25 07/27/25 History collagenase clostridium histo. 250 1 applic topical DAILY 07/27/25 07/27/25 History unit/gram topical ointment (Santyl) geriatric multivitamin-min 1 cap PO DAILY Wounds 07/27/25 07/27/25 History ipratropium 0.5 mg-albuterol 3 mg 3 ml inhalation Q6H PRN copd 07/27/25 07/27/25 History (2.5 mg base)/3 mL nebulization soln montelukast 10 mg tablet 10 mg PO HS 07/27/25 07/27/25 History (Singulair) oxycodone 5 mg tablet 5 mg PO Q6H PRN pain 07/27/25 07/27/25 History rivaroxaban 10 mg tablet (Xarelto) 10 mg PO DAILY 07/27/25 07/27/25 History Allergies Allergy/AdvReac Type Severity Reaction Status Date / Time No Known Allergies Allergy Verified 03/02/25 14:55 Vital Signs Vital Signs - 24 hr 07/26/25 13:26 07/26/25 13:36 07/26/25 13:45 Temperature 97.9 F Pulse Rate 102 H 95 94 Respiratory Rate 16 21 H 24 H Blood Pressure 113/71 Pulse Oximetry 96 Oxygen Delivery Nasal Cannula Oxygen Flow Rate 2 07/26/25 14:22 07/26/25 14:30 07/26/25 14:31 Temperature Pulse Rate 100 105 H 104 H Respiratory Rate 22 H 18 23 H Blood Pressure 84/58 L Pulse Oximetry 90 90 Oxygen Delivery Oxygen Flow Rate 07/26/25 15:14 07/26/25 15:15 07/26/25 15:30 Temperature Pulse Rate 102 H 99 107 H Respiratory Rate 25 H 28 H 23 H Blood Pressure Pulse Oximetry Oxygen Delivery Oxygen Flow Rate 07/26/25 15:35 07/26/25 15:45 07/26/25 16:00 Temperature Pulse Rate 106 H 105 H 100 Respiratory Rate 27 H 28 H 23 H Blood Pressure 103/66 109/62 Pulse Oximetry 88 L 96 97 Oxygen Delivery Oxygen Flow Rate 07/26/25 16:01 07/26/25 16:11 07/26/25 16:15 Temperature 98.7 F Pulse Rate 100 102 H 98 Respiratory Rate 20 22 H 28 H Blood Pressure 109/62 Pulse Oximetry 97 97 99 Oxygen Delivery Oxygen Flow Rate 07/26/25 16:31 07/26/25 17:36 07/26/25 17:43 Temperature Pulse Rate 96 91 89 Respiratory Rate 26 H 19 20 Blood Pressure 108/56 L Pulse Oximetry 97 Oxygen Delivery Oxygen Flow Rate 07/26/25 17:45 07/26/25 18:00 07/26/25 18:01 Temperature Pulse Rate 87 92 90 Respiratory Rate 23 H 23 H 28 H Blood Pressure 96/68 L Pulse Oximetry Oxygen Delivery Oxygen Flow Rate 07/26/25 18:26 07/26/25 18:27 07/26/25 18:30 Temperature Pulse Rate 98 98 95 Respiratory Rate 21 H 31 H 27 H Blood Pressure 110/58 L 106/59 L Pulse Oximetry 97 98 99 Oxygen Delivery Oxygen Flow Rate 07/26/25 18:31 07/26/25 18:56 07/26/25 19:00 Temperature Pulse Rate 94 93 91 Respiratory Rate 27 H 20 20 Blood Pressure 106/57 L Pulse Oximetry 99 94 94 Oxygen Delivery Oxygen Flow Rate 07/26/25 19:24 07/26/25 20:00 07/26/25 20:30 Temperature Pulse Rate 95 93 95 Respiratory Rate 17 22 H 17 Blood Pressure 106/57 L 108/52 L 95/59 L Pulse Oximetry 95 94 92 Oxygen Delivery Oxygen Flow Rate 07/26/25 23:56 07/27/25 00:31 07/27/25 02:00 Temperature 98.2 F Pulse Rate 96 88 Respiratory Rate 16 Blood Pressure 93/65 L Pulse Oximetry 100 94 Oxygen Delivery Nasal Cannula Oxygen Flow Rate 2 07/27/25 04:00 07/27/25 04:00 07/27/25 04:00 Temperature 98.7 F Pulse Rate 86 83 Respiratory Rate 18 Blood Pressure 100/55 L Pulse Oximetry 94 93 Oxygen Delivery Nasal Cannula Oxygen Flow Rate 2 07/27/25 06:00 07/27/25 07:54 Temperature 97.7 F Pulse Rate 84 88 Respiratory Rate 17 Blood Pressure 115/53 L Pulse Oximetry 94 Oxygen Delivery Oxygen Flow Rate Exam Const: General: no acute distress and ill appearing Nutritional Appearance: thin Orientation/consciousness: patient oriented x3 HENMT: Head: normocephalic and atraumatic Ears: hearing grossly normal bilaterally Mouth: Yes moist mucous membranes Eyes: General: appearance normal, both eyes and all related structures Pupils: Equal, round and reactive pupils present Neck: Neck: normal visual inspection and full ROM Resp: Effort & Inspection: no respiratory distress and tachypneic Auscultation: clear to auscultation bilaterally Cardio: Rate: tachycardic Rhythm: regular rhythm GI: Inspection: distended and no scars GI Palp: Yes Soft to palpation, No Tenderness to palpation present (GI), No Guarding due to palpation present (GI), Yes No hepatosplenomegaly present and No Rebound tenderness present Percussion: Yes normal to percussion Auscultation: Hypoactive bowel sounds present Rectal Exam: deferred Urinary Catheter: Urinary Catheter: patent and draining and urine clear (yellow) Skin: General skin exam: normal color Other: Large foul-smelling sacral decubitus ulcer with 100% black/de leon eschar covering the wound that starts about 4-5 cm above the anal verge and extends bilaterally. There is crepitus upon palpation of the eschar and purulent drainage coming from the edges of the eschar. Superficial skin maceration noted around the wound on bilateral buttocks. Left hip unstageable decubitus ulcer that is smaller than the sacral wound and about 70% is a de leon/firm eschar with no foul odor, no purulent drainage, no fluctuance or crepitus, no surrounding erythema. Right lateral foot ulcer at the level of the 5th metatarsal that has some firm yellow slough in the wound bed and pink edges circumferentially, the wound has no odor, no purulent drainage, no fluctuance or crepitus, does not probe to bone, no surrounding erythema. Left heel bullous lesion with skin intact and fluid beneath the skin appears yellow/brown, no erythema or swelling of the heel or foot. Both feet are warm with slowed capillary refill. Weak but palpable pedal pulses, unable to palpate PT bilaterally. Able to wiggle toes with no cyanosis of the feet. Neuro: General: moves all extremities and no focal motor deficits Speech: normal speech Motor exam (neuro): 5/5 motor strength present throughout Extrem: General: normal to inspection and no edema Psych: Mental Status: mental status grossly normal Attitude: cooperative Insight: Good insight present (Psych) Judgement: Good judgement present (Psych) Results Labs 07/27/25 03:39 07/27/25 03:39 Labs: Abnormal lab results 07/26/25 07/26/25 07/26/25 Range/Units 15:25 15:26 23:25 WBC 17.5 H (4.5-10.0) K/mm3 RBC (4.6-6.20) M/mm3 Hgb 13.9 L D (14.0-18.0) g/dL Hct (42.0-52.0) % MCHC 31.0 L (32-36) g/dl Immature Gran % (Auto) 1.8 H (0-0.5) % Neut % (Auto) 76.9 H (45.5-73.1) % Lymph % (Auto) 10.8 L (18.3-44.2) % [place] % (Auto) (2.6-8.5) % [place] # (Auto) 1.2 H (0.1-0.6) K/mm3 Eos # (Auto) 0.6 H (0-0.3) K/mm3 Abs Immat Gran (auto) 0.32 H (0.00-0.031) K/mm3 Absolute Neuts (auto) 13.5 H (1.3-6.7) K/mm3 VBG pH 7.439 H* (7.300-7.400) VBG pO2 < 27.0 L (35.0-45.0) mmHg VBG HCO3 31.1 H (24.0-30.0) mEq/l Sodium 133 L (137-145) mmol/L Anion Gap (4-12) mmol/L Creatinine 0.54 L (0.7-1.3) mg/dL Glucose 113 H (65-110) mg/dL Calcium 8.3 L (8.4-10.2) mg/dL ALT 112 H (6-50) U/L Alkaline Phosphatase 285 H (38-126) U/L Ammonia < 9 L (9-30) umol/L Total Protein (6.3-8.2) g/dL Albumin 3.0 L (3.5-5.1) g/dL Urine Color Red H (Yellow) Urine Appearance Turbid H (Clear) Urine Protein 2+ H (Negative) mg/dL Ur Blood (Man) 3+ H (Negative) Urine Bilirubin 1+ H (Negative) Leukocyte Esterase Rfl 2+ H (Negative) DEVON/UL Urine RBC 51-100 H (0-2) /hpf Urine WBC 11-20 H (0-3) /hpf Salicylates < 1.0 L (2-20) mg/dL Acetaminophen < 10 L (10-30) ug/mL 07/27/25 Range/Units 03:39 WBC 16.7 H (4.5-10.0) K/mm3 RBC 4.14 L (4.6-6.20) M/mm3 Hgb 12.0 L (14.0-18.0) g/dL Hct 39.0 L (42.0-52.0) % MCHC 30.8 L (32-36) g/dl Immature Gran % (Auto) 2.2 H (0-0.5) % Neut % (Auto) (45.5-73.1) % Lymph % (Auto) 12.0 L (18.3-44.2) % [place] % (Auto) 9.5 H (2.6-8.5) % [place] # (Auto) 1.6 H (0.1-0.6) K/mm3 Eos # (Auto) 0.6 H (0-0.3) K/mm3 Abs Immat Gran (auto) 0.37 H (0.00-0.031) K/mm3 Absolute Neuts (auto) 12.0 H (1.3-6.7) K/mm3 VBG pH (7.300-7.400) VBG pO2 (35.0-45.0) mmHg VBG HCO3 (24.0-30.0) mEq/l Sodium 132 L (137-145) mmol/L Anion Gap 3 L (4-12) mmol/L Creatinine 0.51 L (0.7-1.3) mg/dL Glucose (65-110) mg/dL Calcium 7.9 L (8.4-10.2) mg/dL ALT 75 H (6-50) U/L Alkaline Phosphatase 219 H (38-126) U/L Ammonia (9-30) umol/L Total Protein 5.2 L (6.3-8.2) g/dL Albumin 2.4 L (3.5-5.1) g/dL Urine Color (Yellow) Urine Appearance (Clear) Urine Protein (Negative) mg/dL Ur Blood (Man) (Negative) Urine Bilirubin (Negative) Leukocyte Esterase Rfl (Negative) DEVON/UL Urine RBC (0-2) /hpf Urine WBC (0-3) /hpf Salicylates (2-20) mg/dL Acetaminophen (10-30) ug/mL Diabetes panel 07/26/25 07/27/25 Range/Units 15:26 03:39 Sodium 133 L 132 L (137-145) mmol/L Potassium 4.5 4.0 (3.4-5.0) mmol/L Chloride 98 103 (98-107) mmol/L Carbon Dioxide 30 26 (22-30) mmol/L BUN 14 D 10 (9-20) mg/dL Creatinine 0.54 L 0.51 L (0.7-1.3) mg/dL Glucose 113 H 107 (65-110) mg/dL Calcium 8.3 L 7.9 L (8.4-10.2) mg/dL AST 44 30 (17-59) U/L ALT 112 H 75 H (6-50) U/L Alkaline Phosphatase 285 H 219 H (38-126) U/L Total Protein 6.5 5.2 L (6.3-8.2) g/dL Albumin 3.0 L 2.4 L (3.5-5.1) g/dL Calcium panel 07/26/25 07/27/25 Range/Units 15:26 03:39 Calcium 8.3 L 7.9 L (8.4-10.2) mg/dL Albumin 3.0 L 2.4 L (3.5-5.1) g/dL Pituitary panel 07/26/25 07/27/25 Range/Units 15:26 03:39 Sodium 133 L 132 L (137-145) mmol/L Potassium 4.5 4.0 (3.4-5.0) mmol/L Chloride 98 103 (98-107) mmol/L Carbon Dioxide 30 26 (22-30) mmol/L BUN 14 D 10 (9-20) mg/dL Creatinine 0.54 L 0.51 L (0.7-1.3) mg/dL Glucose 113 H 107 (65-110) mg/dL Calcium 8.3 L 7.9 L (8.4-10.2) mg/dL Adrenal panel 07/26/25 07/27/25 Range/Units 15:26 03:39 Sodium 133 L 132 L (137-145) mmol/L Potassium 4.5 4.0 (3.4-5.0) mmol/L Chloride 98 103 (98-107) mmol/L Carbon Dioxide 30 26 (22-30) mmol/L BUN 14 D 10 (9-20) mg/dL Creatinine 0.54 L 0.51 L (0.7-1.3) mg/dL Glucose 113 H 107 (65-110) mg/dL Calcium 8.3 L 7.9 L (8.4-10.2) mg/dL Total Bilirubin 0.6 0.4 (0.2-1.3) mg/dL AST 44 30 (17-59) U/L ALT 112 H 75 H (6-50) U/L Alkaline Phosphatase 285 H 219 H (38-126) U/L Total Protein 6.5 5.2 L (6.3-8.2) g/dL Albumin 3.0 L 2.4 L (3.5-5.1) g/dL All other labs normal. Imaging Additional studies: ITS Impressions Chest X-Ray 07/26/25 15:14 Impression: 1: No acute cardiopulmonary disease. Abdomen/Pelvis CT 07/26/25 18:25 IMPRESSION: 1. Small focal ulceration with mild inflammatory change involving the posterior soft tissues just below the coccyx. No drainable fluid collection identified. 2: Moderately distended small bowel and colon with air-fluid levels, consistent with ileus. Head CT 07/27/25 08:07 IMPRESSION: 1. Age-related changes including mild to moderate diffuse volume loss and moderate scattered white matter hypoattenuation consistent with chronic small vessel ischemic disease. No acute intracranial process. Abdomen X-Ray 07/27/25 09:37 IMPRESSION: 1. Persistent ileus. 2. No air-fluid levels but lower abdomen obscured by shielding. 3. Recommend continued x-ray surveillance if indicated.
--- NOTE | 2025-07-27 11:58 | P.CONNEU_ITS ---
Consult date: 07/27/25 HPI: Bashir Gruber Sr. is a 69 year old male Admitted to the hospital through the emergency room with the complaints of change in mental status [facility] he has been documented to have decubitus ulcer to the heel and the sacral area in addition she is not known to be allergic to any medication, does have ongoing history of abnormal gait, is smoking pack years of 75, currently alcohol intake, and initial exam in the emergency room documenting the sacral ulcer as mentioned above with pulse rate of102 but otherwise normal vital signs, mast scan normal. At present receiving cefepime, vancomycin, and metronidazole with documentation of the CT of the abdomen and pelvis with decubitus ulcer but no abscess does have ongoing history of smoking pack years 75 is currently everyday smoker and currently alcohol intake, has been seen by the general surgeon for the decubitus ulcer and secondary sepsis in addition to the history of documented chronic multiple sclerosis. Of the floor for debridement. Review of Systems 2 Review of Systems: All systems reviewed & are unremarkable except as noted in HPI and below PMFSH Past Medical History Medical History Tobacco use COPD (chronic obstructive pulmonary disease) Multiple sclerosis BMI 22.0-22.9, adult Abnormal gait Surgical History Surgical History History of hip surgery Right hip pinning June 2024 at [place] Hx of tonsillectomy Family History Family History Father Liver cancer Mother No problems noted. Sibling No problems noted. Social History Social History Smoking packs per day: 1.5 Smoking cigarettes per day: 30.0 Years smoked: 50 Smoking pack-years: 75.00 Smoking status: Former smoker Second hand tobacco smoke exposure: Yes Alcohol intake: unknown Substance use: unknown Substance use type: unknown Do You Feel Safe in your Home?: Yes Lack of Transportation: No Lack of Food: Never True Current Housing: I Have Housing Concerned About Future Housing: No Difficulty Paying Gas/Electric Bills: No Difficulty Paying for Meds: No Currently Unemployed: No Education: High School Diploma/GED Difficulty w/ Childcare or Family Care: No Living arrangements: alone Occupation/Education: retired Additional occupation/education comments: [employer] Gender identity (if verbalized by the patient): Male Spiritual care concerns: No Meds Home Medications and Allergies Home Medications ?Medication ?Instructions ?Recorded ?Confirmed ?Type diphenhydramine HCl 25 mg tablet 25 mg PO QHS PRN rash 08/06/22 07/27/25 History (Benadryl Allergy) budesonide 160 mcg-glycopyr 9 2 inh inhalation BID #10 .7 grams 02/17/25 07/27/25 Rx mcg-formot 4.8 mcg/actuation HFA inhaler (Breztri Aerosphere) interferon beta-1a (albumin) 44 See Rx Instructions [place] bcut 3XW #12 05/05/25 07/27/25 Rx mcg/0.5 mL subcutaneous syringe syringes (Rebif (with albumin)) ascorbic acid (vitamin C) 500 mg 500 mg PO DAILY Wound s 07/27/25 07/27/25 History capsule,extended release clobetasol 0.05 % topical cream 1 applic topical BID r toney 07/27/25 07/27/25 History collagenase clostridium histo. 250 1 applic topical DA LETICIA 07/27/25 07/27/25 History unit/gram topical ointment (Santyl) geriatric multivitamin-min 1 cap PO DAILY Wounds 07/2707/27/25 History ipratropium 0.5 mg-albuterol 3 mg 3 ml inhalation Q6H PRN copd 07/27/25 07/27/25 History (2.5 mg base)/3 mL nebulization soln montelukast 10 mg tablet 10 mg PO HS 07/27/25 5 History (Singulair) oxycodone 5 mg tablet 5 mg PO Q6H PRN pain 5 07/27/25 History rivaroxaban 10 mg tablet (Xarelto) 10 mg PO DAILY 07/0507/27/25 History Allergies Allergy/AdvReac Type Severity Reaction Status Date / Time No Known Allergies Allergy Verified 07/27/25 13:01 Vital Signs Vital Signs - 24 hr 07/26/25 13:26 07/26/25 13:36 07/26/25 13:45 Temperature 36.6 C Pulse Rate 102 H 95 94 Respiratory Rate 16 21 H 24 H Blood Pressure 113/71 Pulse Oximetry 96 Oxygen Delivery Nasal Cannula Oxygen Flow Rate 2 07/26/25 14:22 07/26/25 14:30 07/26/25 14:31 Temperature Pulse Rate 100 105 H 104 H Respiratory Rate 22 H 18 23 H Blood Pressure 84/58 L Pulse Oximetry 90 90 Oxygen Delivery Oxygen Flow Rate 07/26/25 15:14 07/26/25 15:15 07/26/25 15:30 Temperature Pulse Rate 102 H 99 107 H Respiratory Rate 25 H 28 H 23 H Blood Pressure Pulse Oximetry Oxygen Delivery Oxygen Flow Rate 07/26/25 15:35 07/26/25 15:45 07/26/25 16:00 Temperature Pulse Rate 106 H 105 H 100 Respiratory Rate 27 H 28 H 23 H Blood Pressure 103/66 109/62 Pulse Oximetry 88 L 96 97 Oxygen Delivery Oxygen Flow Rate 07/26/25 16:01 07/26/25 16:11 07/26/25 16:15 Temperature 37.1 C Pulse Rate 100 102 H 98 Respiratory Rate 20 22 H 28 H Blood Pressure 109/62 Pulse Oximetry 97 97 99 Oxygen Delivery Oxygen Flow Rate 07/26/25 16:31 07/26/25 17:36 07/26/25 17:43 Temperature Pulse Rate 96 91 89 Respiratory Rate 26 H 19 20 Blood Pressure 108/56 L Pulse Oximetry 97 Oxygen Delivery Oxygen Flow Rate 07/26/25 17:45 07/26/25 18:00 07/26/25 18:01 Temperature Pulse Rate 87 92 90 Respiratory Rate 23 H 23 H 28 H Blood Pressure 96/68 L Pulse Oximetry Oxygen Delivery Oxygen Flow Rate 07/26/25 18:26 07/26/25 18:27 07/26/25 18:30 Temperature Pulse Rate 98 98 95 Respiratory Rate 21 H 31 H 27 H Blood Pressure 110/58 L 106/59 L Pulse Oximetry 97 98 99 Oxygen Delivery Oxygen Flow Rate 07/26/25 18:31 07/26/25 18:56 07/26/25 19:00 Temperature Pulse Rate 94 93 91 Respiratory Rate 27 H 20 20 Blood Pressure 106/57 L Pulse Oximetry 99 94 94 Oxygen Delivery Oxygen Flow Rate 07/26/25 19:24 07/26/25 20:00 07/26/25 20:30 Temperature Pulse Rate 95 93 95 Respiratory Rate 17 22 H 17 Blood Pressure 106/57 L 108/52 L 95/59 L Pulse Oximetry 95 94 92 Oxygen Delivery Oxygen Flow Rate 07/26/25 23:56 07/27/25 00:31 07/27/25 02:00 Temperature 36.8 C Pulse Rate 96 88 Respiratory Rate 16 Blood Pressure 93/65 L Pulse Oximetry 100 94 Oxygen Delivery Nasal Cannula Oxygen Flow Rate 2 07/27/25 04:00 07/27/25 04:00 07/27/25 04:00 Temperature 37.1 C Pulse Rate 86 83 Respiratory Rate 18 Blood Pressure 100/55 L Pulse Oximetry 94 93 Oxygen Delivery Nasal Cannula Oxygen Flow Rate 2 07/27/25 06:00 07/27/25 07:54 07/27/25 08:00 Temperature 36.5 C Pulse Rate 84 88 80 Respiratory Rate 17 Blood Pressure 115/53 L Pulse Oximetry 94 Oxygen Delivery Oxygen Flow Rate Results Labs 07/27/25 03:39 07/27/25 03:39 Labs: Short CBC 07/26/25 07/27/25 Range/Units 15:26 03:39 WBC 17.5 H 16.7 H (4.5-10.0) K/mm3 Hgb 13.9 L D 12.0 L (14.0-18.0) g/dL Hct 44.8 39.0 L (42.0-52.0) % Plt Count 369 D 321 (150-375) k/mm3 BMP 07/26/25 07/27/25 15:26 03:39 Sodium 133 L 132 L Potassium 4.5 4.0 Chloride 98 103 Carbon Dioxide 30 26 BUN 14 D 10 Creatinine 0.54 L 0.51 L Glucose 113 H 107 Calcium 8.3 L 7.9 L Liver Function 07/26/25 07/27/25 Range/Units 15:26 03:39 Total Bilirubin 0.6 0.4 (0.2-1.3) mg/dL AST 44 30 (17-59) U/L ALT 112 H 75 H (6-50) U/L Alkaline Phosphatase 285 H 219 H (38-126) U/L Albumin 3.0 L 2.4 L (3.5-5.1) g/dL Urine 07/26/25 Range/Units 15:26 Urine Color Red H (Yellow) Urine Appearance Turbid H (Clear) Urine pH 6.0 (5.0-9.0) Ur Specific [place] 1.015 (1.001-1.035) Urine Protein 2+ H (Negative) mg/dL Urine Glucose (UA) Negative (Negative) mg/dL
--- NOTE | 2025-07-27 12:30 | P.PNIM_ITS ---
Progress Note: A&P Assessment and Plan (1) Sepsis: Code(s): A41.9 - Sepsis, unspecified organism Status: Acute (2) Altered mental status: Code(s): R41.82 - Altered mental status, unspecified Status: Acute (3) Ileus: Code(s): K56.7 - Ileus, unspecified Status: Acute (4) Decubitus ulcer, infected: Code(s): L89.90 - Pressure ulcer of unspecified site, unspecified stage; L08.9 - Local infection of the skin and subcutaneous tissue, unspecified Status: Acute (5) Hypoxia: Code(s): R09.02 - Hypoxemia Status: Acute (6) Multiple sclerosis: Code(s): G35 - Multiple sclerosis Status: Chronic (7) COPD (chronic obstructive pulmonary disease): Code(s): J44.9 - Chronic obstructive pulmonary disease, unspecified Status: Chronic (8) UTI (urinary tract infection): Code(s): N39.0 - Urinary tract infection, site not specified Status: Acute Plan Sepsis - possibly related to either UTI and/or decubitus ulcer to the sacrum and left heel, right lateral foot with some purulence. Blood pressure was soft and patient given 30 cc per kg bolus. Influenza, RSV and COVID PCR negative. CT abdomen pelvis shows decubitus ulcer without abscess, likely ileus as well. Lactic acid normal. White count 17 K, urinalysis grossly abnormal. He was started on cefepime vancomycin and metronidazole. General surgery consulted. WBC about the same. Wound care consulted. AMS - Head CT showing age-related changes including mild-moderate diffuse volume loss and moderate scattered white matter hypoattenuation consistent with chronic small-vessel ischemic disease but no acute. Ammonia level negative. TSH normal. Urine drug screen negative. Likely has metabolic encephalopathy due to UTI, infected sacral also or both complicated by his MS. Continue to try to reorient. Fall precautions. Ileus -CT scan shows probable ileus related to sepsis. Abdominal x-ray today again showing ileus. Continue bowel rest. Monitor electrolytes. General surgery consulted. Decubitus ulcers -related to the fact that he is bed-bound from his MS. As above. Hypoxia -patient was 88% on room air. Chest x-ray was clear. Viral PCR was negative. He is on Xarelto at home making PE less likely. Wean oxygen as tolerated. MS -patient on interferon prior to admission. Monitor mental status. If mental status is not improved, consider brain MRI and Neurology consult. COPD -no wheezing appreciated but he remains on oxygen. Continue Trelegy. Add albuterol p.r.n.. UTI -patient with a chronic indwelling urinary catheter related to urine retention from his MS most likely. Patient with complicated UTI related to his urinary catheter. Treatment as above. Rash - could be related to abx but just had bath so possible irritant. will monitor for now. RN notified to closely monitor for change in condition. Code status - Full code. DVT prophylaxis - SCDs. Hgb stable and plt count normal - Add Lovenox Subjective Date/time seen: 07/27/25 12:30 Interval history: 69yo male [facility]bound [facility] from [place] who presents with altered mental status. Assuming care. Chart reviewed. No flatus. Last bowel movement was yesterday. No chest pain or abdominal pain. He denies any pruritus. He is alert but confused so history is suspect Review of Systems Review of Systems: ROS unobtainable: Yes unobtainable due to mental status Exam Narrative: AF 97.8 104/66 88 17 100% 2L Gen - NARD Chest -few bibasilar crackles otherwise clear. CV - RRR S1/S2. Telemetry showing no acute dysrhythmias Abd -soft. Protuberant. Tympanitic. Positive bowel sounds. Ext - No pedal edema Neuro -alert. Confused. Oriented to president's name and year. Psych - Nml mood and affect Skin - Warm and dry. Multiple wounds including his sacrum, buttocks, left hip, left heel and right foot. Patient with diffuse splotchy macular pink rash Objective Data Vital Signs Vital Signs: Vital Signs - 24 hr 07/26/25 13:26 07/26/25 13:36 07/26/25 13:45 Temperature 97.9 F Pulse Rate 102 H 95 94 Respiratory Rate 16 21 H 24 H Blood Pressure 113/71 Pulse Oximetry 96 Oxygen Delivery Nasal Cannula Oxygen Flow Rate 2 07/26/25 14:22 07/26/25 14:30 07/26/25 14:31 Temperature Pulse Rate 100 105 H 104 H Respiratory Rate 22 H 18 23 H Blood Pressure 84/58 L Pulse Oximetry 90 90 Oxygen Delivery Oxygen Flow Rate 07/26/25 15:14 07/26/25 15:15 07/26/25 15:30 Temperature Pulse Rate 102 H 99 107 H Respiratory Rate 25 H 28 H 23 H Blood Pressure Pulse Oximetry Oxygen Delivery Oxygen Flow Rate 07/26/25 15:35 07/26/25 15:45 07/26/25 16:00 Temperature Pulse Rate 106 H 105 H 100 Respiratory Rate 27 H 28 H 23 H Blood Pressure 103/66 109/62 Pulse Oximetry 88 L 96 97 Oxygen Delivery Oxygen Flow Rate 07/26/25 16:01 07/26/25 16:11 07/26/25 16:15 Temperature 98.7 F Pulse Rate 100 102 H 98 Respiratory Rate 20 22 H 28 H Blood Pressure 109/62 Pulse Oximetry 97 97 99 Oxygen Delivery Oxygen Flow Rate 07/26/25 16:31 07/26/25 17:36 07/26/25 17:43 Temperature Pulse Rate 96 91 89 Respiratory Rate 26 H 19 20 Blood Pressure 108/56 L Pulse Oximetry 97 Oxygen Delivery Oxygen Flow Rate 07/26/25 17:45 07/26/25 18:00 07/26/25 18:01 Temperature Pulse Rate 87 92 90 Respiratory Rate 23 H 23 H 28 H Blood Pressure 96/68 L Pulse Oximetry Oxygen Delivery Oxygen Flow Rate 07/26/25 18:26 07/26/25 18:27 07/26/25 18:30 Temperature Pulse Rate 98 98 95 Respiratory Rate 21 H 31 H 27 H Blood Pressure 110/58 L 106/59 L Pulse Oximetry 97 98 99 Oxygen Delivery Oxygen Flow Rate 07/26/25 18:31 07/26/25 18:56 07/26/25 19:00 Temperature Pulse Rate 94 93 91 Respiratory Rate 27 H 20 20 Blood Pressure 106/57 L Pulse Oximetry 99 94 94 Oxygen Delivery Oxygen Flow Rate 07/26/25 19:24 07/26/25 20:00 07/26/25 20:30 Temperature Pulse Rate 95 93 95 Respiratory Rate 17 22 H 17 Blood Pressure 106/57 L 108/52 L 95/59 L Pulse Oximetry 95 94 92 Oxygen Delivery Oxygen Flow Rate 07/26/25 23:56 07/27/25 00:31 07/27/25 02:00 Temperature 98.2 F Pulse Rate 96 88 Respiratory Rate 16 Blood Pressure 93/65 L Pulse Oximetry 100 94 Oxygen Delivery Nasal Cannula Oxygen Flow Rate 2 07/27/25 04:00 07/27/25 04:00 07/27/25 04:00 Temperature 98.7 F Pulse Rate 86 83 Respiratory Rate 18 Blood Pressure 100/55 L Pulse Oximetry 94 93 Oxygen Delivery Nasal Cannula Oxygen Flow Rate 2 07/27/25 06:00 07/27/25 07:54 07/27/25 08:00 Temperature 97.7 F Pulse Rate 84 88 80 Respiratory Rate 17 Blood Pressure 115/53 L Pulse Oximetry 94 Oxygen Delivery Oxygen Flow Rate 07/27/25 12:00 07/27/25 12:00 Temperature 97.8 F Pulse Rate 88 Respiratory Rate 17 Blood Pressure 104/66 Pulse Oximetry 94 100 Oxygen Delivery Nasal Cannula Oxygen Flow Rate 2 Intake/Output Intake/Output: Intake & Output 07/24/25 07/25/25 07/26/25 07/27/25 23:59 23:59 23:59 23:59 Intake Total 2850 650 Output Total 600 Balance 2850 50 Meds/Results Medications: Active Medications Generic Name Dose Route Start Last Admin Trade Name Freq PRN Reason Stop Dose Admin Dextrose 12.5 gm 07/26/25 22:31 Dextrose 50% 25 Gm/50 Ml Syringe IV PUSH PRN PRN Hypoglycemia Protocol Fluticasone/Umeclidinium/Vilanterol 1 puff 07/27/25 08:00 07/27/25 08:12 Fluticasone/Umeclidin/Vilanter 100-62.5-25 Mcg Ellipta INHALATION 1 puff DAILYRT MICAH Administration Glucose 15 gm 07/26/25 22:31 Glucose Oral Gel 15 Gm Of Glucse In 37.5 Gm Tube PO PRN PRN Hypoglycemia Protocol Cefepime HCl 2 gm/ Sodium 50 mls @ 100 mls/hr 07/27/25 05:00 07/27/25 07:36 Chloride IVPB Infused Q12H MICAH Infusion Metronidazole 500 mg in 100 mls @ 100 mls/hr 07/26/25 22:00 07/27/25 07:36 Flagyl 500 Mg/Iso Soln 100 Ml IVPB Infused Q8H MICAH Infusion Vancomycin HCl 1,500 mg in 500 mls @ 250 mls/hr 07/27/25 05:00 07/27/25 07:36 Vancomycin 1,500 Mg/Ns 500 Ml IVPB Infused Q12H MICAH Infusion Dextrose 1,000 mls @ 100 mls/hr 07/26/25 22:31 Dextrose 5% 1,000 Ml IVPB PRN PRN Hypoglycemia Protocol Sodium Chloride 1,000 mls @ 100 mls/hr 07/27/25 10:20 07/27/25 10:30 Normal Saline Iv IV CONT 100 mls/hr .Q10H MICAH Administration Radiology Results: ITS Impressions Chest X-Ray 07/26/25 15:14 Impression: 1: No acute cardiopulmonary disease. Abdomen/Pelvis CT 07/26/25 18:25 IMPRESSION: 1. Small focal ulceration with mild inflammatory change involving the posterior soft tissues just below the coccyx. No drainable fluid collection identified. 2: Moderately distended small bowel and colon with air-fluid levels, consistent with ileus. Head CT 07/27/25 08:07 IMPRESSION: 1. Age-related changes including mild to moderate diffuse volume loss and moderate scattered white matter hypoattenuation consistent with chronic small vessel ischemic disease. No acute intracranial process. Abdomen X-Ray 07/27/25 09:37 IMPRESSION: 1. Persistent ileus. 2. No air-fluid levels but lower abdomen obscured by shielding. 3. Recommend continued x-ray surveillance if indicated. Labs Labs: Laboratory Results - last 24 hr 07/26/25 07/26/25 07/26/25 15:19 15:25 15:26 WBC 17.5 H RBC 4.81 Hgb 13.9 L D Hct 44.8 MCV 93.1 MCH 28.9 MCHC 31.0 L RDW 14.1 Plt Count 369 D MPV 9.9 Immature Gran % (Auto) 1.8 H Neut % (Auto) 76.9 H Lymph % (Auto) 10.8 L [place] % (Auto) 6.8 Eos % (Auto) 3.2 Baso % (Auto) 0.5 Lymph # (Auto) 1.90 [place] # (Auto) 1.2 H Eos # (Auto) 0.6 H Baso # (Auto) 0.1 Abs Immat Gran (auto) 0.32 H Absolute Neuts (auto) 13.5 H Absolute Nucleated RBC 0.000 Nucleated RBC % 0.0 VBG pH 7.439 H* VBG pCO2 47.0 VBG pO2 < 27.0 L VBG HCO3 31.1 H O2 Delivery Device Room air O2 Liters/Min 0.0 FiO2 21 Sodium 133 L Potassium 4.5 Chloride 98 Carbon Dioxide 30 Anion Gap 5 BUN 14 D Creatinine 0.54 L Estim Creat Clear Calc 109 Estimated GFR > 60 Glucose 113 H POC Capillary Glucose 96 Lactic Acid 1.7 Calcium 8.3 L Magnesium 2.0 Total Bilirubin 0.6 AST 44 ALT 112 H Alkaline Phosphatase 285 H Ammonia Total Protein 6.5 Albumin 3.0 L TSH (Reflex) 0.559 Urine Color Red H Urine Appearance Turbid H Urine pH 6.0 Ur Specific [place] 1.015 Urine Protein 2+ H Urine Glucose (UA) Negative Urine Ketones Negative Ur Blood (Man) 3+ H Urine Nitrate Negative Urine Bilirubin 1+ H Urine Urobilinogen 1.0 Leukocyte Esterase Rfl 2+ H Urine RBC 51-100 H Urine WBC 11-20 H Ur Squamous Epith Cells None seen Urine Bacteria Trace Hyaline Casts 0-2 Nasal MRSA (PCR) Salicylates Urine Opiates Screen Negative Urine Methadone Screen Negative Acetaminophen Ur Barbiturates Screen Negative Ur Phencyclidine Scrn Negative Ur Amphetamine Screen Negative U Benzodiazepines Scrn Negative Urine Cocaine Screen Negative U Cannabinoids Screen Negative Influenza A (RT-PCR) Influenza B (RT-PCR) RSV (RT-PCR) SARS-CoV-2 RNA (RT-PCR) 07/26/25 07/26/25 07/27/25 17:18 23:25 03:39 WBC 16.7 H RBC 4.14 L Hgb 12.0 L Hct 39.0 L MCV 94.2 MCH 29.0 MCHC 30.8 L RDW 14.2 Plt Count 321 MPV 9.9 Immature Gran % (Auto) 2.2 H Neut % (Auto) 72.3 Lymph % (Auto) 12.0 L [place] % (Auto) 9.5 H Eos % (Auto) 3.3 Baso % (Auto) 0.7 Lymph # (Auto) 2.00 [place] # (Auto) 1.6 H Eos # (Auto) 0.6 H Baso # (Auto) 0.1 Abs Immat Gran (auto) 0.37 H Absolute Neuts (auto) 12.0 H Absolute Nucleated RBC 0.000 Nucleated RBC % 0.0 VBG pH VBG pCO2 VBG pO2 VBG HCO3 O2 Delivery Device O2 Liters/Min FiO2 Sodium 132 L Potassium 4.0 Chloride 103 Carbon Dioxide 26 Anion Gap 3 L BUN 10 Creatinine 0.51 L Estim Creat Clear Calc 111 Estimated GFR > 60 Glucose 107 POC Capillary Glucose Lactic Acid Calcium 7.9 L Magnesium 1.9 Total Bilirubin 0.4 AST 30 ALT 75 H Alkaline Phosphatase 219 H Ammonia < 9 L Total Protein 5.2 L Albumin 2.4 L TSH (Reflex) Urine Color Urine Appearance Urine pH Ur Specific [place] Urine Protein Urine Glucose (UA) Urine Ketones Ur Blood (Man) Urine Nitrate Urine Bilirubin Urine Urobilinogen Leukocyte Esterase Rfl Urine RBC Urine WBC Ur Squamous Epith Cells Urine Bacteria Hyaline Casts Nasal MRSA (PCR) Not detected Salicylates < 1.0 L Urine Opiates Screen Urine Methadone Screen Acetaminophen < 10 L Ur Barbiturates Screen Ur Phencyclidine Scrn Ur Amphetamine Screen U Benzodiazepines Scrn Urine Cocaine Screen U Cannabinoids Screen Influenza A (RT-PCR) Negative Influenza B (RT-PCR) Negative RSV (RT-PCR) Negative SARS-CoV-2 RNA (RT-PCR) Negative 07/27/25 12:19 WBC RBC Hgb Hct MCV MCH MCHC RDW Plt Count MPV Immature Gran % (Auto) Neut % (Auto) Lymph % (Auto) [place] % (Auto) Eos % (Auto) Baso % (Auto) Lymph # (Auto) [place] # (Auto) Eos # (Auto) Baso # (Auto) Abs Immat Gran (auto) Absolute Neuts (auto) Absolute Nucleated RBC Nucleated RBC % VBG pH VBG pCO2 VBG pO2 VBG HCO3 O2 Delivery Device O2 Liters/Min FiO2 Sodium Potassium Chloride Carbon Dioxide Anion Gap BUN Creatinine Estim Creat Clear Calc Estimated GFR Glucose POC Capillary Glucose 123 H Lactic Acid Calcium Magnesium Total Bilirubin AST ALT Alkaline Phosphatase Ammonia Total Protein Albumin TSH (Reflex) Urine Color Urine Appearance Urine pH Ur Specific [place] Urine Protein Urine Glucose (UA) Urine Ketones Ur Blood (Man) Urine Nitrate Urine Bilirubin Urine Urobilinogen Leukocyte Esterase Rfl Urine RBC Urine WBC Ur Squamous Epith Cells Urine Bacteria Hyaline Casts Nasal MRSA (PCR) Salicylates Urine Opiates Screen Urine Methadone Screen Acetaminophen Ur Barbiturates Screen Ur Phencyclidine Scrn Ur Amphetamine Screen U Benzodiazepines Scrn Urine Cocaine Screen U Cannabinoids Screen Influenza A (RT-PCR) Influenza B (RT-PCR) RSV (RT-PCR) SARS-CoV-2 RNA (RT-PCR)
--- NOTE | 2025-07-27 13:58 | WPDHPUPDATE1 ---
History and Physical Update Update Date/Time: 07/27/25 13:58 History and Physical has been reviewed, including an updated exam of the patient. There are NO changes in the patient's condition. Risks, benefits, and alternatives have been discussed and questions answered. Patient agrees to proceed with procedure.
--- NOTE | 2025-07-27 14:27 | WPDANESEPPF ---
Anes - Initial Pre Proc Eval Procedure: Operation Date: 07/27/25 15:45 Proposed Procedures p Debridement Sacral Decubitus Ulcer - Haile Richardson DO Date/Time: 07/27/25 14:27 Surgeon: Arcadio Chatman MD Pre Op Diagnosis: infected sacral decub Patient Data Age: 69 Gender: M Height: 1.8 m Weight: 66.6 kg Last Vital Signs Temp 36.8 C 07/27/25 13:03 Pulse 88 07/27/25 13:03 Resp 22 H 07/27/25 13:03 BP 117/62 07/27/25 13:03 Pulse Ox 95 07/27/25 13:03 O2 Del Method Nasal Cannula 07/27/25 13:03 O2 Flow Rate 3 07/27/25 13:03 Allergies Allergy/AdvReac Type Severity Reaction Status Date / Time No Known Allergies Allergy Verified 07/27/25 13:01 Home Medications ?Medication ?Instructions ?Recorded ?Confirmed ?Type diphenhydramine HCl 25 mg tablet 25 mg PO QHS PRN rash 08/06/22 07/27/25 History (Benadryl Allergy) budesonide 160 mcg-glycopyr 9 2 inh inhalation BID #10.7 grams 02/17/25 07/27/25 Rx mcg-formot 4.8 mcg/actuation HFA inhaler (Breztri Aerosphere) interferon beta-1a (albumin) 44 See Rx Instructions subcut 3XW #12 05/05/25 07/27/25 Rx mcg/0.5 mL subcutaneous syringe syringes (Rebif (with albumin)) ascorbic acid (vitamin C) 500 mg 500 mg PO DAILY Wounds 07/27/25 07/27/25 History capsule,extended release clobetasol 0.05 % topical cream 1 applic topical BID rash 07/27/25 07/27/25 History collagenase clostridium histo. 250 1 applic topical DAILY 07/27/25 07/27/25 History unit/gram topical ointment (Santyl) geriatric multivitamin-min 1 cap PO DAILY Wounds 07/27/25 07/27/25 History ipratropium 0.5 mg-albuterol 3 mg 3 ml inhalation Q6H PRN copd 07/27/25 07/27/25 History (2.5 mg base)/3 mL nebulization soln montelukast 10 mg tablet 10 mg PO HS 07/27/25 07/27/25 History (Singulair) oxycodone 5 mg tablet 5 mg PO Q6H PRN pain 07/27/25 07/27/25 History rivaroxaban 10 mg tablet (Xarelto) 10 mg PO DAILY 07/27/25 07/27/25 History Laboratory Tests 07/26/25 07/26/25 07/26/25 15:19 15:25 15:26 WBC 17.5 H K/mm3 (4.5-10.0) RBC 4.81 M/mm3 (4.6-6.20) Hgb 13.9 L D g/dL (14.0-18.0) Hct 44.8 % (42.0-52.0) MCV 93.1 fl (80-100) MCH 28.9 pg (26-34) MCHC 31.0 L g/dl (32-36) RDW 14.1 % (11.5-14.5) Plt Count 369 D k/mm3 (150-375) MPV 9.9 fl (7.4-10.4) Immature Gran % (Auto) 1.8 H % (0-0.5) Neut % (Auto) 76.9 H % (45.5-73.1) Lymph % (Auto) 10.8 L % (18.3-44.2) [place] % (Auto) 6.8 % (2.6-8.5) Eos % (Auto) 3.2 % (0-4.4) Baso % (Auto) 0.5 % (0.2-1.2) Lymph # (Auto) 1.90 K/mm3 (0.9-3.2) [place] # (Auto) 1.2 H K/mm3 (0.1-0.6) Eos # (Auto) 0.6 H K/mm3 (0-0.3) Baso # (Auto) 0.1 K/mm3 (0.0-0.1) Abs Immat Gran (auto) 0.32 H K/mm3 (0.00-0.031) Absolute Neuts (auto) 13.5 H K/mm3 (1.3-6.7) Absolute Nucleated RBC 0.000 K/mm3 (0.0-0.012) Nucleated RBC % 0.0 % (0.0-0.2) VBG pH 7.439 H* (7.300-7.400) VBG pCO2 47.0 mmHg (42.0-48.0) VBG pO2 < 27.0 L mmHg (35.0-45.0) VBG HCO3 31.1 H mEq/l (24.0-30.0) O2 Delivery Device Room air O2 Liters/Min 0.0 LPM FiO2 21 % Sodium 133 L mmol/L (137-145) Potassium 4.5 mmol/L (3.4-5.0) Chloride 98 mmol/L (98-107) Carbon Dioxide 30 mmol/L (22-30) Anion Gap 5 mmol/L (4-12) BUN 14 D mg/dL (9-20) Creatinine 0.54 L mg/dL (0.7-1.3) Estim Creat Clear Calc 109 ml/min Estimated GFR > 60 (59 - ) Glucose 113 H mg/dL (65-110) POC Capillary Glucose 96 mg/dl (65-105) Lactic Acid 1.7 mmol/L (0.7-2.0) Calcium 8.3 L mg/dL (8.4-10.2) Magnesium 2.0 mg/dL (1.6-2.3) Total Bilirubin 0.6 mg/dL (0.2-1.3) AST 44 U/L (17-59) ALT 112 H U/L (6-50) Alkaline Phosphatase 285 H U/L (38-126) Ammonia Total Protein 6.5 g/dL (6.3-8.2) Albumin 3.0 L g/dL (3.5-5.1) TSH (Reflex) 0.559 uIU/mL (0.465-4.68) Urine Color Red H (Yellow) Urine Appearance Turbid H (Clear) Urine pH 6.0 (5.0-9.0) Ur Specific [place] 1.015 (1.001-1.035) Urine Protein 2+ H mg/dL (Negative) Urine Glucose (UA) Negative mg/dL (Negative) Urine Ketones Negative mg/dL (Negative) Ur Blood (Man) 3+ H (Negative) Urine Nitrate Negative (Negative) Urine Bilirubin 1+ H (Negative) Urine Urobilinogen 1.0 mg/dL (<2.0) Leukocyte Esterase Rfl 2+ H DEVON/UL (Negative) Urine RBC 51-100 H /hpf (0-2) Urine WBC 11-20 H /hpf (0-3) Ur Squamous Epith Cells None seen /hpf (Few) Urine Bacteria Trace /hpf (None) Hyaline Casts 0-2 /lpf (None) Nasal MRSA (PCR) Salicylates Urine Opiates Screen Negative (Negative) Urine Methadone Screen Negative (Negative) Acetaminophen Ur Barbiturates Screen Negative (Negative) Ur Phencyclidine Scrn Negative (Negative) Ur Amphetamine Screen Negative (Negative) U Benzodiazepines Scrn Negative (Negative) Urine Cocaine Screen Negative (Negative) U Cannabinoids Screen Negative (Negative) Influenza A (RT-PCR) Influenza B (RT-PCR) RSV (RT-PCR) SARS-CoV-2 RNA (RT-PCR) 07/26/25 07/26/25 07/27/25 17:18 23:25 03:39 WBC 16.7 H K/mm3 (4.5-10.0) RBC 4.14 L M/mm3 (4.6-6.20) Hgb 12.0 L g/dL (14.0-18.0) Hct 39.0 L % (42.0-52.0) MCV 94.2 fl (80-100) MCH 29.0 pg (26-34) MCHC 30.8 L g/dl (32-36) RDW 14.2 % (11.5-14.5) Plt Count 321 k/mm3 (150-375) MPV 9.9 fl (7.4-10.4) Immature Gran % (Auto) 2.2 H % (0-0.5) Neut % (Auto) 72.3 % (45.5-73.1) Lymph % (Auto) 12.0 L % (18.3-44.2) [place] % (Auto) 9.5 H % (2.6-8.5) Eos % (Auto) 3.3 % (0-4.4) Baso % (Auto) 0.7 % (0.2-1.2) Lymph # (Auto) 2.00 K/mm3 (0.9-3.2) [place] # (Auto) 1.6 H K/mm3 (0.1-0.6) Eos # (Auto) 0.6 H K/mm3 (0-0.3) Baso # (Auto) 0.1 K/mm3 (0.0-0.1) Abs Immat Gran (auto) 0.37 H K/mm3 (0.00-0.031) Absolute Neuts (auto) 12.0 H K/mm3 (1.3-6.7) Absolute Nucleated RBC 0.000 K/mm3 (0.0-0.012) Nucleated RBC % 0.0 % (0.0-0.2) VBG pH VBG pCO2 VBG pO2 VBG HCO3 O2 Delivery Device O2 Liters/Min FiO2 Sodium 132 L mmol/L (137-145) Potassium 4.0 mmol/L (3.4-5.0) Chloride 103 mmol/L (98-107) Carbon Dioxide 26 mmol/L (22-30) Anion Gap 3 L mmol/L (4-12) BUN 10 mg/dL (9-20) Creatinine 0.51 L mg/dL (0.7-1.3) Estim Creat Clear Calc 111 ml/min Estimated GFR > 60 (59 - ) Glucose 107 mg/dL (65-110) POC Capillary Glucose Lactic Acid Calcium 7.9 L mg/dL (8.4-10.2) Magnesium 1.9 mg/dL (1.6-2.3) Total Bilirubin 0.4 mg/dL (0.2-1.3) AST 30 U/L (17-59) ALT 75 H U/L (6-50) Alkaline Phosphatase 219 H U/L (38-126) Ammonia < 9 L umol/L (9-30) Total Protein 5.2 L g/dL (6.3-8.2) Albumin 2.4 L g/dL (3.5-5.1) TSH (Reflex) Urine Color Urine Appearance Urine pH Ur Specific [place] Urine Protein Urine Glucose (UA) Urine Ketones Ur Blood (Man) Urine Nitrate Urine Bilirubin Urine Urobilinogen Leukocyte Esterase Rfl Urine RBC Urine WBC Ur Squamous Epith Cells Urine Bacteria Hyaline Casts Nasal MRSA (PCR) Not detected (NOT DETECTE) Salicylates < 1.0 L mg/dL (2-20) Urine Opiates Screen Urine Methadone Screen Acetaminophen < 10 L ug/mL (10-30) Ur Barbiturates Screen Ur Phencyclidine Scrn Ur Amphetamine Screen U Benzodiazepines Scrn Urine Cocaine Screen U Cannabinoids Screen Influenza A (RT-PCR) Negative (Negative) Influenza B (RT-PCR) Negative (Negative) RSV (RT-PCR) Negative (Negative) SARS-CoV-2 RNA (RT-PCR) Negative (Negative) 07/27/25 12:19 WBC RBC Hgb Hct MCV MCH MCHC RDW Plt Count MPV Immature Gran % (Auto) Neut % (Auto) Lymph % (Auto) [place] % (Auto) Eos % (Auto) Baso % (Auto) Lymph # (Auto) [place] # (Auto) Eos # (Auto) Baso # (Auto) Abs Immat Gran (auto) Absolute Neuts (auto) Absolute Nucleated RBC Nucleated RBC % VBG pH VBG pCO2 VBG pO2 VBG HCO3 O2 Delivery Device O2 Liters/Min FiO2 Sodium Potassium Chloride Carbon Dioxide Anion Gap BUN Creatinine Estim Creat Clear Calc Estimated GFR Glucose POC Capillary Glucose 123 H mg/dl (65-105) Lactic Acid Calcium Magnesium Total Bilirubin AST ALT Alkaline Phosphatase Ammonia Total Protein Albumin TSH (Reflex) Urine Color Urine Appearance Urine pH Ur Specific [place] Urine Protein Urine Glucose (UA) Urine Ketones Ur Blood (Man) Urine Nitrate Urine Bilirubin Urine Urobilinogen Leukocyte Esterase Rfl Urine RBC Urine WBC Ur Squamous Epith Cells Urine Bacteria Hyaline Casts Nasal MRSA (PCR) Salicylates Urine Opiates Screen Urine Methadone Screen Acetaminophen Ur Barbiturates Screen Ur Phencyclidine Scrn Ur Amphetamine Screen U Benzodiazepines Scrn Urine Cocaine Screen U Cannabinoids Screen Influenza A (RT-PCR) Influenza B (RT-PCR) RSV (RT-PCR) SARS-CoV-2 RNA (RT-PCR) Patient hx anesthesia problems: none Family hx anesthesia problems: none Results Review: All pre-operative results and documents have been reviewed as part of the pre-operative evaluation. [facility] Past Medical History Medical History Tobacco use COPD (chronic obstructive pulmonary disease) Multiple sclerosis BMI 22.0-22.9, adult Abnormal gait Surgical History Surgical History History of hip surgery Right hip pinning June 2024 at [place] Hx of tonsillectomy Family History Family History Father Liver cancer Mother No problems noted. Sibling No problems noted. Social History Social History Smoking packs per day: 1.5 Smoking cigarettes per day: 30.0 Years smoked: 50 Smoking pack-years: 75.00 Smoking status: Former smoker Second hand tobacco smoke exposure: Yes Alcohol intake: unknown Substance use: unknown Substance use type: unknown Do You Feel Safe in your Home?: Yes Lack of Transportation: No Lack of Food: Never True Current Housing: I Have Housing Concerned About Future Housing: No Difficulty Paying Gas/Electric Bills: No Difficulty Paying for Meds: No Currently Unemployed: No Education: High School Diploma/GED Difficulty w/ Childcare or Family Care: No Living arrangements: alone Occupation/Education: retired Additional occupation/education comments: [employer] Gender identity (if verbalized by the patient): Male Spiritual care concerns: No Anes - Eval Final PreProcedure Day of Procedure 07/27/25 14:27 Patient weight: normal Heart: regular rate and rhythm Lungs: clear to auscultation Neurological: confused Last oral intake: 6 hours ASA classification: IV Emergent: no Anesthetic plan: proceed Anesthesia type and monitoring: general ETT and standard monitoring Results Review: All pre-operative results and documents have been reviewed as part of the pre-operative evaluation. Informed Consent: The patient's anesthetic plan and its attendant risks and benefits were discussed with the patient/family/POA. Questions were solicited and answers provided to the satisfaction of the patient/family/POA.
[2025-07-27] MEDS: LACTATED RINGERS 1,000 ML 30 ML IV CONT (15:11)
--- NOTE | 2025-07-27 16:10 | P.OP_ITS ---
Procedure Note - Detailed Date of Procedure 07/27/25 Pre-op Diagnosis Unstageable sacral decubitus ulcer, sepsis Post-op Diagnosis Other (Stage IV sacral decubitus ulcer, sepsis) Procedure Performed Sharp excisional debridement stage IV sacral decubitus ulcer including skin, subcutaneous fat, muscle, and fascia/tendon measuring 15 cm x 8 cm Surgeon Haile Richardson DO Sales Order Coordinator Karishma Benitez PA-C Anesthesia General Indications Unstageable large sacral decubitus ulcer, sepsis Findings Stage IV sacral decubitus ulcer with necrotic and purulent material underneath a large eschar measuring 15 cm x 8 cm. Sharp excisional debridement performed including skin, subcutaneous fat, muscle, and fascia/tendon. Description of Procedure Procedure as well as risks, benefits, and alternatives were discussed with the patient. Written consent was obtained and placed in chart prior to procedure. Patient was brought back to surgical suite. He was placed supine on operating table. Time-out was done to confirm patient and procedure. He was then intubated by anesthesia department. He was then repositioned into left lateral decubitus position on the operating table. His sacral region was prepped and draped in sterile fashion using Betadine prep. Sharp excisional debridement was then performed using a 10 blade scalpel. Necrotic skin, subcutaneous fat, muscle, and tendon/fascia was sharply excised completely down to healthier appearing tissue. I was able to debride down to some bleeding tissue, but did not want to be too aggressive due to patient being on blood thinners. This was debrided down to about 70-80% healthy appearing viable tissue. The wound measured 15 cm x 8 cm. After finishing the debridement, the wound was then irrigated with sterile saline. The wound was then packed with Dakin soaked 4 in Kerlix wrap. Fluff gauze, ABD pads, and Medipore tape were then applied. Patient was then awakened from anesthesia, extubated, and transferred to recovery. Estimated Blood Loss 20 Packing Yes (Dakin soaked Kerlix gauze) Complications No immediate complications Condition Critical Disposition Other ([facility]) [facility] Billing Surgery - Charge Forward: Surgery Billing
--- NOTE | 2025-07-27 16:15 | PC.NURSE ---
On 07/27/25, the student, Ino, provided care and completed [facility] documentation on this patient. I have reviewed the student's documentation and agree with the findings.
[2025-07-27] MEDS: LACTATED RINGERS 1,000 ML 100 ML IV CONT (18:26)
[2025-07-27] MEDS: IPRATROPIUM 0.5 MG/ALBUTEROL SULFATE 2.5 MG AMPUL.NEB 3 ML INHALATION (18:34)
[2025-07-27] MEDS: ENOXAPARIN 40 MG/0.4 ML SYRINGE SUB-Q (18:46)
[2025-07-28] VITALS (14 sets, daily range): BP systolic 83–119; BP diastolic 46–63; PULSE 55–110; RESP 16–24; TEMP 36.6–37.4; O2SAT 90–100
[2025-07-28 04:07] LABS: Hematocrit 34.2 % (42.0-52.0); Hemoglobin 10.5 g/dL (14.0-18.0); Mean Corpuscular HGB Conc 30.7 g/dl (32-36); Mean Corpuscular Hemoglobin 29.0 pg (26-34); Mean Corpuscular Volume 94.5 fl (80-100); Platelet Count Result 297 k/mm3 (150-375); Red Blood Count 3.62 M/mm3 (4.6-6.20); White Blood Count 14.8 K/mm3 (4.5-10.0)
[2025-07-28] MEDS: CEFEPIME 2 GM in SODIUM CHLORIDE 0.9% IV 50 ML 100 ML IVPB ×2 (04:07→17:16)
[2025-07-28 04:24] LABS: Anion Gap 2 mmol/L (4-12); Blood Urea Nitrogen 10 mg/dL (9-20); Calcium 7.7 mg/dL (8.4-10.2); Carbon Dioxide 28 mmol/L (22-30); Chloride 104 mmol/L (98-107); Estimated CRCL calculation 103 ml/min; Estimated Glomerular Filt Rate > 60; Glucose 115 mg/dL (65-110); Magnesium 1.8 mg/dL (1.6-2.3); Potassium 4.3 mmol/L (3.4-5.0); Sodium 134 mmol/L (137-145)
[2025-07-28] MEDS: VANCOMYCIN 1,750 MG/NS 500 ML 1,750 MG/500 ML BAG 250 MG IVPB ×2 (04:52→17:59)
--- NOTE | 2025-07-28 05:46 | WNDPHOTO ---
PHOTO ONLY - See Nursing Notes and/ or assessments for documentation.
[2025-07-28] MEDS: metroNIDAZOLE 500 MG/ISO 100ML 500 MG/100 ML BAG 100 MG IVPB ×3 (06:13→21:47)
[2025-07-28] MEDS: FLUTICASONE/UMECLIDIN/VILANTER 100-62.5-25 MCG ELLIPTA 1 PUFF INHALATION (08:23)
--- NOTE | 2025-07-28 11:26 | P.CDI_ITS ---
CDI Query Clarification Request Hypoxia has been documented Please review the clinical information below and clarify the respiratory diagnosis the patient is being treated for: * Hypoxia or hypoxemia without respiratory failure * Respiratory distress without respiratory failure * Acute respiratory failure with hypoxia * Acute respiratory failure with hypercapnia * Acute respiratory failure with hypoxia and hypercapnia * Acute on chronic respiratory failure with hypoxia * Acute on chronic respiratory failure with hypercapnia * Acute on chronic respiratory failure with hypoxia and hypercapnia * Acute respiratory distress syndrome (ARDS) * Chronic respiratory failure with hypoxia * Chronic respiratory failure with hypercapnia * Chronic respiratory failure with hypoxia and hypercapnia * Other explanation clinical findings, please specify * Unable to determine assessment and Plan (1) Sepsis: Code(s): A41.9 - Sepsis, unspecified organism Status: Acute (2) Altered mental status: Code(s): R41.82 - Altered mental status, unspecified Status: Acute (3) Ileus: Code(s): K56.7 - Ileus, unspecified Status: Acute (4) Decubitus ulcer, infected: Code(s): L89.90 - Pressure ulcer of unspecified site, unspecified stage; L08.9 - Local infection of the skin and subcutaneous tissue, unspecified Status: Acute (5) Hypoxia: Code(s): R09.02 - Hypoxemia Status: Acute (6) Multiple sclerosis: Code(s): G35 - Multiple sclerosis Status: Chronic (7) COPD (chronic obstructive pulmonary disease): Code(s): J44.9 - Chronic obstructive pulmonary disease, unspecified Status: Chronic (8) UTI (urinary tract infection): Code(s): N39.0 - Urinary tract infection, site not specified Status: Acute Plan Sepsis - possibly related to either UTI and/or decubitus ulcer to the sacrum and left heel, right lateral foot with some purulence. Blood pressure was soft and patient given 30 cc per kg bolus. Influenza, RSV and COVID PCR negative. CT abdomen pelvis shows decubitus ulcer without abscess, likely ileus as well. Lactic acid normal. White count 17 K, urinalysis grossly abnormal. He was started on cefepime vancomycin and metronidazole. General surgery consulted. WBC about the same. Wound care consulted. AMS - Head CT showing age-related changes including mild-moderate diffuse volume loss and moderate scattered white matter hypoattenuation consistent with chronic small-vessel ischemic disease but no acute. Ammonia level negative. TSH normal. Urine drug screen negative. Likely has metabolic encephalopathy due to UTI, infected sacral also or both complicated by his MS. Continue to try to reorient. Fall precautions. Ileus -CT scan shows probable ileus related to sepsis. Abdominal x-ray today again showing ileus. Continue bowel rest. Monitor electrolytes. General surgery consulted. Decubitus ulcers -related to the fact that he is bed-bound from his MS. As above. Hypoxia -patient was 88% on room air. Chest x-ray was clear. Viral PCR was negative. He is on Xarelto at home making PE less likely. Wean oxygen as tolerated. MS -patient on interferon prior to admission. Monitor mental status. If mental status is not improved, consider brain MRI and Neurology consult. COPD -no wheezing appreciated but he remains on oxygen. Continue Trelegy. Add albuterol p.r.n.. UTI -patient with a chronic indwelling urinary catheter related to urine retention from his MS most likely. Patient with complicated UTI related to his urinary catheter. Treatment as above. Rash - could be related to abx but just had bath so possible irritant. will m onitor for now. RN notified to closely monitor for change in condition. 07/27- 10 L simple mask documented 5 L NC, 3L NC continued documentation. ABG's 07/26: VBG pH 7.439 #H 7.300-7.400 ML Critical test result called with verbal read-back verified at 1537 on 07/26/[address], FORMS EXAMINER. Caregiver: Truong Grimaldo Critical test name and result given: VBG pH 7.439 VBG PCO2 47.0 42.0-48.0 mmHg ML VBG PO2 < 27.0 L 35.0-45.0 mmHg ML VBG HCO3 31.1 H 24.0-30.0 mEq/l ML FiO2 21 % ML Device ROOM AIR ML Liters per Minute 0.0 LPM ML
--- NOTE | 2025-07-28 14:31 | P.PNGS_ITS ---
Progress Note: A&P Assessment and Plan (1) Decubitus ulcer, infected: Code(s): L89.90 - Pressure ulcer of unspecified site, unspecified stage; L08.9 - Local infection of the skin and subcutaneous tissue, unspecified Status: Acute Assessment and Plan: * Pod 1 status post strep excisional debridement stage IV sacral decubitus ulcer including skin, subcutaneous fat, muscle, and fascia/tendon measuring 15 cm x 8 cm. * Per nursing staff, patient did have some bleeding overnight, but wound appeared stable this morning with no saturation through the dressing. Wound repacked this afternoon. Eddie pad was saturated, but wound itself appears stable with no active bleeding. OK to resume blood thinners. Will continue to follow with serial exams and labs. * Continue packing the sacral wound with Dakin soaked 4 in Kerlix. For left hip wound, apply betadine to the area and cover with a mepilex dressing. * Continue IV cefepime, Flagyl, vancomycin. (2) Sepsis: Code(s): A41.9 - Sepsis, unspecified organism Status: Acute Assessment and Plan: * Source likely related to decubitus ulcer vs UTI vs combination. Continue broad-spectrum IV antibiotics * Blood cultures pending * Plan to proceed to OR for source control (3) UTI (urinary tract infection): Code(s): N39.0 - Urinary tract infection, site not specified Status: Acute Assessment and Plan: * Continue IV antibiotics. Urine culture pending (4) Multiple sclerosis: Code(s): G35 - Multiple sclerosis Status: Chronic (5) COPD (chronic obstructive pulmonary disease): Code(s): J44.9 - Chronic obstructive pulmonary disease, unspecified Status: Chronic Assessment and Plan: * Reportedly diagnosed with COPD about a month ago and quit smoking at that time (6) Right foot ulcer: Code(s): L97.519 - Non-pressure chronic ulcer of other part of right foot with unspecified severity Status: Acute Assessment and Plan: * Unstageable right lateral foot ulcer appears stable and does not appear to be infected. Continue to elevate his heels off the bed as the boots are rubbing on this wound. Continue local wound care to the right foot ulcer and monitor. Plan I have discussed the patient's case and plan of care with Dr. Richardson. Subjective Subjective Date/Time Seen: 07/28/25 14:31 Post Op day: 1 (Excisional debridement) Patient reports: no new complaints, tolerating a regular diet and no bowel movement Interval history: Patient is doing well today. Sitting up in bed eating breakfast. Reportedly, he told the nurse that he was having abdominal pain, but when questioned by myself he denies any pain. Exam Skin: General skin exam: normal color Other: Large foul-smelling sacral decubitus ulcer with 100% black/de leon eschar covering the wound that starts about 4-5 cm above the anal verge and extends bilaterally. There is crepitus upon palpation of the eschar and purulent drainage coming from the edges of the eschar. Superficial skin maceration noted around the wound on bilateral buttocks. Left hip unstageable decubitus ulcer that is smaller than the sacral wound and about 70% is a de leon/firm eschar with no foul odor, no purulent drainage, no fluctuance or crepitus, no surrounding erythema. Right lateral foot ulcer at the level of the 5th metatarsal that has some firm yellow slough in the wound bed and pink edges circumferentially, the wound has no odor, no purulent drainage, no fluctuance or crepitus, does not probe to bone, no surrounding erythema. Left heel bullous lesion with skin intact and fluid beneath the skin appears yellow/brown, no erythema or swelling of the heel or foot. Both feet are warm with slowed capillary refill. Weak but palpable pedal pulses, unable to palpate PT bilaterally. Able to wiggle toes with no cyanosis of the feet. Objective Data Vital Signs Vital Signs: Vital Signs - 24 hr 07/27/25 16:14 07/27/25 16:29 07/27/25 16:30 Temperature 97 F L Pulse Rate 87 92 93 Respiratory Rate 30 H 30 H 26 H Blood Pressure 101/70 109/70 106/63 Pulse Oximetry 100 100 100 Oxygen Delivery Simple Face Mask Nasal Cannula Nasal Cannula Oxygen Flow Rate 10 5 2 07/27/25 16:45 07/27/25 17:00 07/27/25 18:00 Temperature 98.0 F Pulse Rate 95 94 96 Respiratory Rate 22 H 20 26 H Blood Pressure 108/66 102/59 L 110/61 Pulse Oximetry 95 100 99 Oxygen Delivery Nasal Cannula Nasal Cannula Oxygen Flow Rate 2 3 07/27/25 18:00 07/27/25 18:35 07/27/25 18:54 Temperature 98.1 F Pulse Rate 95 91 97 Respiratory Rate 20 24 H Blood Pressure 112/61 Pulse Oximetry 99 Oxygen Delivery Oxygen Flow Rate 07/27/25 20:00 07/27/25 20:40 07/27/25 20:42 Temperature Pulse Rate 90 97 Respiratory Rate 24 H Blood Pressure Pulse Oximetry 99 99 Oxygen Delivery Nasal Cannula Nasal Cannula Oxygen Flow Rate 3 3 07/27/25 20:47 07/27/25 22:00 07/27/25 23:42 Temperature 98.0 F Pulse Rate 90 75 75 Respiratory Rate 20 20 Blood Pressure 101/49 L Pulse Oximetry 94 94 Oxygen Delivery Nasal Cannula Oxygen Flow Rate 3 07/28/25 00:00 07/28/25 00:09 07/28/25 02:00 Temperature 97.8 F Pulse Rate 73 82 76 Respiratory Rate 20 Blood Pressure 95/52 L Pulse Oximetry 95 Oxygen Delivery Oxygen Flow Rate 07/28/25 04:00 07/28/25 04:00 07/28/25 04:16 Temperature 97.8 F Pulse Rate 80 77 76 Respiratory Rate 16 20 Blood Pressure 91/46 L Pulse Oximetry 96 95 Oxygen Delivery Nasal Cannula Oxygen Flow Rate 3 07/28/25 06:00 07/28/25 08:00 07/28/25 08:00 Temperature 98.1 F Pulse Rate 79 55 L 73 Respiratory Rate 24 H Blood Pressure 83/46 L Pulse Oximetry 97 Oxygen Delivery Oxygen Flow Rate 07/28/25 08:23 07/28/25 08:24 07/28/25 10:00 Temperature Pulse Rate 67 85 Respiratory Rate Blood Pressure Pulse Oximetry 90 Oxygen Delivery Nasal Cannula Oxygen Flow Rate 3 07/28/25 12:00 07/28/25 12:00 Temperature 98.8 F Pulse Rate 83 105 H Respiratory Rate 24 H Blood Pressure 119/54 L Pulse Oximetry 96 Oxygen Delivery Oxygen Flow Rate Intake/Output Intake/Output: Intake & Output 07/25/25 07/26/25 07/27/25 07/28/25 23:59 23:59 23:59 23:59 Intake Total 2850 1900 640 Output Total 1125 750 Balance 2850 775 -110 Meds/Results Medications: Active Medications Generic Name Dose Route Start Last Admin Trade Name Freq PRN Reason Stop Dose Admin Albuterol/Ipratropium 3 ml 07/27/25 17:46 07/27/25 18:34 Ipratropium 0.5 Mg/Albuterol Sulfate 2.5 Mg Ampul.Neb 3 Ml INHALATION 3 ml Q6HRT PRN Administration Shortness Of Breath Dextrose 12.5 gm 07/26/25 22:31 Dextrose 50% 25 Gm/50 Ml Syringe IV PUSH PRN PRN Hypoglycemia Protocol Diphenhydramine HCl 25 mg 07/27/25 17:10 Diphenhydramine Hcl Inj 50 Mg/Ml Vial IV PUSH Q6H PRN Itching Enoxaparin Sodium 40 mg 07/28/25 18:00 Enoxaparin 40 Mg/0.4 Ml Syringe SUB-Q Q24H MICAH Fluticasone/Umeclidinium/Vilanterol 1 puff 07/27/25 08:00 07/28/25 08:23 Fluticasone/Umeclidin/Vilanter 100-62.5-25 Mcg Ellipta INHALATION 1 puff DAILYRT MICAH Administration Glucose 15 gm 07/26/25 22:31 Glucose Oral Gel 15 Gm Of Glucse In 37.5 Gm Tube PO PRN PRN Hypoglycemia Protocol Hydromorphone HCl 1 mg 07/27/25 17:10 Hydromorphone Hcl Inj (*Crx) 1 Mg/Ml Syr IV PUSH Q2H PRN Breakthrough Pain Rated 7-10 or NPO Hydromorphone HCl 0.5 mg 07/27/25 17:10 Hydromorphone Hcl Inj (*Crx) 1 Mg/Ml Syr IV PUSH Q2H PRN Breakthrough Pain Rated 4-6 or NPO Cefepime HCl 2 gm/ Sodium 50 mls @ 100 mls/hr 07/27/25 05:00 07/28/25 04:50 Chloride IVPB Infused Q12H MICAH Infusion Metronidazole 500 mg in 100 mls @ 100 mls/hr 07/26/25 22:00 07/28/25 14:16 Flagyl 500 Mg/Iso Soln 100 Ml IVPB 100 mls/hr Q8H MICAH Administration Dextrose 1,000 mls @ 100 mls/hr 07/26/25 22:31 Dextrose 5% 1,000 Ml IVPB PRN PRN Hypoglycemia Protocol Ibuprofen 800 mg in 200 mls @ 400 mls/hr 07/27/25 17:10 Caldolor 800 Mg/200 Ml IVPB Q6H PRN Breakthrough Pain Rated 1-3 or NPO Vancomycin HCl 1,750 mg in 500 mls @ 250 mls/hr 07/28/25 05:00 07/28/25 04:52 Vancomycin 1,750 Mg/Ns 500 Ml IVPB 250 mls/hr Q12H MICAH Administration Naloxone HCl 0.1 mg 07/27/25 17:10 Naloxone Hcl 0.4 Mg/Ml Vial IV PUSH Q2M PRN Opiate Reversal Ondansetron HCl 4 mg 07/27/25 17:10 Ondansetron Inj 4 Mg/2 Ml Vial IV PUSH Q4H PRN Nausea And Vomiting Radiology Results: ITS Impressions Chest X-Ray 07/26/25 15:14 Impression: 1: No acute cardiopulmonary disease. Abdomen/Pelvis CT 07/26/25 18:25 IMPRESSION: 1. Small focal ulceration with mild inflammatory change involving the posterior soft tissues just below the coccyx. No drainable fluid collection identified. 2: Moderately distended small bowel and colon with air-fluid levels, consistent with ileus. Head CT 07/27/25 08:07 IMPRESSION: 1. Age-related changes including mild to moderate diffuse volume loss and moderate scattered white matter hypoattenuation consistent with chronic small vessel ischemic disease. No acute intracranial process. Abdomen X-Ray 07/28/25 13:00 IMPRESSION: 1. Left lower lobe airspace disease, suspicious for pneumonia. 2: Small left pleural effusion. Labs Labs: Laboratory Results - last 24 hr 07/27/25 07/28/25 07/28/25 18:36 00:33 04:03 WBC 14.8 H RBC 3.62 L Hgb 10.5 L Hct 34.2 L MCV 94.5 MCH 29.0 MCHC 30.7 L RDW 14.0 Plt Count 297 MPV 9.6 Sodium 134 L Potassium 4.3 Chloride 104 Carbon Dioxide 28 Anion Gap 2 L BUN 10 Creatinine 0.55 L Estim Creat Clear Calc 103 Estimated GFR > 60 Glucose 115 H POC Capillary Glucose 98 120 H Calcium 7.7 L Magnesium 1.8 Vancomycin Trough 13.9 07/28/25 11:40 WBC RBC Hgb Hct MCV MCH MCHC RDW Plt Count MPV Sodium Potassium Chloride Carbon Dioxide Anion Gap BUN Creatinine Estim Creat Clear Calc Estimated GFR Glucose POC Capillary Glucose 126 H Calcium Magnesium Vancomycin Trough
--- NOTE | 2025-07-28 16:37 | P.PNIM_ITS ---
Progress Note: A&P Assessment and Plan (1) Sepsis: Code(s): A41.9 - Sepsis, unspecified organism Status: Acute (2) Altered mental status: Code(s): R41.82 - Altered mental status, unspecified Status: Acute (3) Ileus: Code(s): K56.7 - Ileus, unspecified Status: Acute (4) Decubitus ulcer, infected: Code(s): L89.90 - Pressure ulcer of unspecified site, unspecified stage; L08.9 - Local infection of the skin and subcutaneous tissue, unspecified Status: Acute (5) Hypoxia: Code(s): R09.02 - Hypoxemia Status: Acute (6) Multiple sclerosis: Code(s): G35 - Multiple sclerosis Status: Chronic (7) COPD (chronic obstructive pulmonary disease): Code(s): J44.9 - Chronic obstructive pulmonary disease, unspecified Status: Chronic (8) UTI (urinary tract infection): Code(s): N39.0 - Urinary tract infection, site not specified Status: Acute Plan Sepsis - possibly related to either UTI and/or decubitus ulcer to the sacrum and left heel, right lateral foot with some purulence. Blood pressure was soft and patient given 30 cc per kg bolus. CXR was clear. Influenza, RSV and COVID PCR negative. CT abdomen pelvis shows decubitus ulcer without abscess, likely ileus as well. Lactic acid normal. White count 17 K, urinalysis grossly abnormal. He was started on cefepime vancomycin and metronidazole. General surgery consulted and patient underwent sharp excisional debridement stage IV sacral decubitus ulcer including skin, subcutaneous fat, muscle, and fascia/tendon measuring 15 cm x 8 cm on 07/27/25. WBC trending down. Continue IV abx. Continue wound care. Appreciate GEnSurg input. Check sputum AMS - Head CT showing age-related changes including mild-moderate diffuse volume loss and moderate scattered white matter hypoattenuation consistent with chronic small-vessel ischemic disease but no acute. Ammonia level negative. TSH normal. Urine drug screen negative. Likely has metabolic encephalopathy due to UTI, infected sacral and less likely MS flare. Symptoms improving. Continue to try to reorient. Fall precautions. Check B12/folate/VitD Ileus -CT scan shows probable ileus related to sepsis. Abdominal x-ray today showing ileus has resolved. Diet resumed and tolerating this well. Add Miralax. Resume some home meds Decubitus ulcers -related to the fact that he is bed-bound from his MS. As above. Hypoxia -patient was 88% on room air. Chest x-ray was clear. Viral PCR was negative. He is on Xarelto at home making PE less likely. Wean oxygen as tolerated. MS -patient on interferon prior to admission. Monitor mental status. Mental status improving. Follow. Holding Interferon COPD -no wheezing appreciated but he remains on oxygen. Continue Trelegy. Albuterol p.r.n.. UTI -patient with a chronic indwelling urinary catheter related to urine retention from his MS most likely. Patient with complicated UTI related to his urinary catheter. Treatment as above. Rash - possibly irritant. Rash has resolved. Follow Code status - Full code. DVT prophylaxis - SCDs. Lovenox Subjective Date/time seen: 07/28/25 16:37 Interval history: 69yo male bed-bound [facility] patient from [place] who presents with altered mental status. Slept okay. No chest pain or shortness of breath. Cough productive yellow sputum. Eating okay. Passing flatus. Exam Narrative: AF 99.3 106/63 108 20 100% 3L Gen - NARD Chest - bibasilar crackles otherwise clear. CV - RRR S1/S2. Telemetry showing no acute dysrhythmias Abd -soft. NT/ND, +BS Ext - No pedal edema Neuro -alert. Oriented to 'hospital', year and president's name. Psych - Nml mood and affect Skin - Warm and dry. Multiple dressings including his sacrum, buttocks, left hip, left heel and right foot. Diffuse splotchy macular pink rash has resolved Objective Data Vital Signs Vital Signs: Vital Signs - 24 hr 07/27/25 16:45 07/27/25 17:00 07/27/25 18:00 Temperature 98.0 F Pulse Rate 95 94 96 Respiratory Rate 22 H 20 26 H Blood Pressure 108/66 102/59 L 110/61 Pulse Oximetry 95 100 99 Oxygen Delivery Nasal Cannula Nasal Cannula Oxygen Flow Rate 2 3 07/27/25 18:00 07/27/25 18:35 07/27/25 18:54 Temperature 98.1 F Pulse Rate 95 91 97 Respiratory Rate 20 24 H Blood Pressure 112/61 Pulse Oximetry 99 Oxygen Delivery Oxygen Flow Rate 07/27/25 20:00 07/27/25 20:40 07/27/25 20:42 Temperature Pulse Rate 90 97 Respiratory Rate 24 H Blood Pressure Pulse Oximetry 99 99 Oxygen Delivery Nasal Cannula Nasal Cannula Oxygen Flow Rate 3 3 07/27/25 20:47 07/27/25 22:00 07/27/25 23:42 Temperature 98.0 F Pulse Rate 90 75 75 Respiratory Rate 20 20 Blood Pressure 101/49 L Pulse Oximetry 94 94 Oxygen Delivery Nasal Cannula Oxygen Flow Rate 3 07/28/25 00:00 07/28/25 00:09 07/28/25 02:00 Temperature 97.8 F Pulse Rate 73 82 76 Respiratory Rate 20 Blood Pressure 95/52 L Pulse Oximetry 95 Oxygen Delivery Oxygen Flow Rate 07/28/25 04:00 07/28/25 04:00 07/28/25 04:16 Temperature 97.8 F Pulse Rate 80 77 76 Respiratory Rate 16 20 Blood Pressure 91/46 L Pulse Oximetry 96 95 Oxygen Delivery Nasal Cannula Oxygen Flow Rate 3 07/28/25 06:00 07/28/25 08:00 07/28/25 08:00 Temperature 98.1 F Pulse Rate 79 55 L 73 Respiratory Rate 24 H Blood Pressure 83/46 L Pulse Oximetry 97 Oxygen Delivery Oxygen Flow Rate 07/28/25 08:23 07/28/25 08:24 07/28/25 10:00 Temperature Pulse Rate 67 85 Respiratory Rate Blood Pressure Pulse Oximetry 90 Oxygen Delivery Nasal Cannula Oxygen Flow Rate 3 07/28/25 12:00 07/28/25 12:00 07/28/25 14:00 Temperature 98.8 F Pulse Rate 83 105 H 105 H Respiratory Rate 24 H Blood Pressure 119/54 L Pulse Oximetry 96 Oxygen Delivery Oxygen Flow Rate 07/28/25 16:00 Temperature 99.3 F Pulse Rate 108 H Respiratory Rate 20 Blood Pressure 106/63 Pulse Oximetry 100 Oxygen Delivery Oxygen Flow Rate Intake/Output Intake/Output: Intake & Output 07/25/25 07/26/25 07/27/25 07/28/25 23:59 23:59 23:59 23:59 Intake Total 2850 1900 880 Output Total 1125 750 Balance 2850 775 130 Meds/Results Medications: Active Medications Generic Name Dose Route Start Last Admin Trade Name Freq PRN Reason Stop Dose Admin Albuterol/Ipratropium 3 ml 07/27/25 17:46 07/27/25 18:34 Ipratropium 0.5 Mg/Albuterol Sulfate 2.5 Mg Ampul.Neb 3 Ml INHALATION 3 ml Q6HRT PRN Administration Shortness Of Breath Dextrose 12.5 gm 07/26/25 22:31 Dextrose 50% 25 Gm/50 Ml Syringe IV PUSH PRN PRN Hypoglycemia Protocol Diphenhydramine HCl 25 mg 07/27/25 17:10 Diphenhydramine Hcl Inj 50 Mg/Ml Vial IV PUSH Q6H PRN Itching Enoxaparin Sodium 40 mg 07/28/25 18:00 Enoxaparin 40 Mg/0.4 Ml Syringe SUB-Q Q24H MICAH Fluticasone/Umeclidinium/Vilanterol 1 puff 07/27/25 08:00 07/28/25 08:23 Fluticasone/Umeclidin/Vilanter 100-62.5-25 Mcg Ellipta INHALATION 1 puff DAILYRT MICAH Administration Glucose 15 gm 07/26/25 22:31 Glucose Oral Gel 15 Gm Of Glucse In 37.5 Gm Tube PO PRN PRN Hypoglycemia Protocol Hydromorphone HCl 1 mg 07/27/25 17:10 Hydromorphone Hcl Inj (*Crx) 1 Mg/Ml Syr IV PUSH Q2H PRN Breakthrough Pain Rated 7-10 or NPO Hydromorphone HCl 0.5 mg 07/27/25 17:10 Hydromorphone Hcl Inj (*Crx) 1 Mg/Ml Syr IV PUSH Q2H PRN Breakthrough Pain Rated 4-6 or NPO Cefepime HCl 2 gm/ Sodium 50 mls @ 100 mls/hr 07/27/25 05:00 07/28/25 04:50 Chloride IVPB Infused Q12H MICAH Infusion Metronidazole 500 mg in 100 mls @ 100 mls/hr 07/26/25 22:00 07/28/25 14:16 Flagyl 500 Mg/Iso Soln 100 Ml IVPB 100 mls/hr Q8H MICAH Administration Dextrose 1,000 mls @ 100 mls/hr 07/26/25 22:31 Dextrose 5% 1,000 Ml IVPB PRN PRN Hypoglycemia Protocol Ibuprofen 800 mg in 200 mls @ 400 mls/hr 07/27/25 17:10 Caldolor 800 Mg/200 Ml IVPB Q6H PRN Breakthrough Pain Rated 1-3 or NPO Vancomycin HCl 1,750 mg in 500 mls @ 250 mls/hr 07/28/25 05:00 07/28/25 04:52 Vancomycin 1,750 Mg/Ns 500 Ml IVPB 250 mls/hr Q12H MICAH Administration Naloxone HCl 0.1 mg 07/27/25 17:10 Naloxone Hcl 0.4 Mg/Ml Vial IV PUSH Q2M PRN Opiate Reversal Ondansetron HCl 4 mg 07/27/25 17:10 Ondansetron Inj 4 Mg/2 Ml Vial IV PUSH Q4H PRN Nausea And Vomiting Radiology Results: ITS Impressions Chest X-Ray 07/26/25 15:14 Impression: 1: No acute cardiopulmonary disease. Abdomen/Pelvis CT 07/26/25 18:25 IMPRESSION: 1. Small focal ulceration with mild inflammatory change involving the posterior soft tissues just below the coccyx. No drainable fluid collection identified. 2: Moderately distended small bowel and colon with air-fluid levels, consistent with ileus. Head CT 07/27/25 08:07 IMPRESSION: 1. Age-related changes including mild to moderate diffuse volume loss and moderate scattered white matter hypoattenuation consistent with chronic small vessel ischemic disease. No acute intracranial process. Abdomen X-Ray 07/28/25 13:00 IMPRESSION: 1. Left lower lobe airspace disease, suspicious for pneumonia. 2: Small left pleural effusion. Labs Labs: Laboratory Results - last 24 hr 07/27/25 07/28/25 07/28/25 18:36 00:33 04:03 WBC 14.8 H RBC 3.62 L Hgb 10.5 L Hct 34.2 L MCV 94.5 MCH 29.0 MCHC 30.7 L RDW 14.0 Plt Count 297 MPV 9.6 Sodium 134 L Potassium 4.3 Chloride 104 Carbon Dioxide 28 Anion Gap 2 L BUN 10 Creatinine 0.55 L Estim Creat Clear Calc 103 Estimated GFR > 60 Glucose 115 H POC Capillary Glucose 98 120 H Calcium 7.7 L Magnesium 1.8 Vancomycin Trough 13.9 07/28/25 11:40 WBC RBC Hgb Hct MCV MCH MCHC RDW Plt Count MPV Sodium Potassium Chloride Carbon Dioxide Anion Gap BUN Creatinine Estim Creat Clear Calc Estimated GFR Glucose POC Capillary Glucose 126 H Calcium Magnesium Vancomycin Trough
[2025-07-28] MEDS: ENOXAPARIN 40 MG/0.4 ML SYRINGE SUB-Q (17:23)
--- NOTE | 2025-07-28 18:04 | WPDANESPN ---
Anes - Prog Note Post-Op Date/Time: 07/28/25 18:04 Cardiovascular status: normal Respiratory status: normal Airway patency: baseline Mental status: baseline Post-Op hydration status: normal Vital Signs: Last Vital Signs Temp 37.4 C 07/28/25 16:00 Pulse 108 H 07/28/25 16:00 Resp 20 07/28/25 16:00 BP 106/63 07/28/25 16:00 Pulse Ox 100 07/28/25 16:00 O2 Del Method Nasal Cannula 07/28/25 08:24 O2 Flow Rate 3 07/28/25 08:24 Pain Score (VAS): 0 I/O: Intake & Output 07/28/25 07/28/25 07/28/25 07:59 15:59 23:59 Intake Total 850 630 50 Output Total 750 Balance 100 630 50 Laboratory Tests 07/28/25 04:03 07/28/25 04:03 07/27/25 07/28/25 07/28/25 18:36 00:33 04:03 WBC 14.8 H RBC 3.62 L Hgb 10.5 L Hct 34.2 L MCV 94.5 MCH 29.0 MCHC 30.7 L RDW 14.0 Plt Count 297 MPV 9.6 Sodium 134 L Potassium 4.3 Chloride 104 Carbon Dioxide 28 Anion Gap 2 L BUN 10 Creatinine 0.55 L Estim Creat Clear Calc 103 Estimated GFR > 60 Glucose 115 H POC Capillary Glucose 98 120 H Calcium 7.7 L Magnesium 1.8 Vancomycin Trough 13.9 07/28/25 11:40 WBC RBC Hgb Hct MCV MCH MCHC RDW Plt Count MPV Sodium Potassium Chloride Carbon Dioxide Anion Gap BUN Creatinine Estim Creat Clear Calc Estimated GFR Glucose POC Capillary Glucose 126 H Calcium Magnesium Vancomycin Trough Microbiology 07/26/25 15:36 Blood Blood Culture - Preliminary 07/26/25 15:26 Blood Blood Culture - Preliminary Post-procedural complaints: none Patient Feedback: Patient satisfied with anesthetic care.
--- NOTE | 2025-07-28 18:07 | P.PNNEUR_ITS ---
Progress Note: A&P Assessment and Plan (1) Metabolic encephalopathy: Code(s): G93.41 - Metabolic encephalopathy Status: Acute Assessment and Plan: the patient has sacral decubitus ulcer which is infected. There is also suspicion of urinary tract infection. White cell count elevated 14.8 on admission and hemoglobin is also low at 10.5. His mental status is in fact better than yesterday. His daughter is very supportive and plans to take him to be close to her in [place]. (2) Multiple sclerosis: Code(s): G35 - Multiple sclerosis Status: Chronic Assessment and Plan: The patient has been on review for a very long time a taken as injection 3 kristina es a week and may continue with same. (3) Decubitus ulcer, infected: Code(s): L89.90 - Pressure ulcer of unspecified site, unspecified stage; L08.9 - Local infection of the skin and subcutaneous tissue, unspecified Status: Acute Assessment and Plan: This is being addressed by the surgeons. Plan Neurology will follow-up on as-needed basis. CT scan of brain did not show any acute abnormalities. Chronic changes were noted in white matter bilaterally. Residual finding due to chronic multiple sclerosis. Subjective Date/time seen: 07/28/25 18:07 Interval history: The patient is 69-year-old with history of chronic multiple sclerosis for more than 25 years and has been on Rebif. He has previously seen Dr. Hernandez and subsequently Dr. Medina at Neurology office. Admitted to the hospital on account of changes in mental status. His daughter is coming from [place] and is planning that when she is settled down to take him to be be close to her so she can take care of him. His liver enzymes have been found to be elevated and is in a smoker and also drinks alcohol. He has been found to have decubitus ulcer. Today's mental status slightly better than yesterday. He has had surgical intervention for decubitus ulcer as well as he is on antibiotics treat ment. Prior to admission he was in care home and his daughter noted that his mental status was changing the last 1 week and she thought he may have urinary tract infection but to she is unhappy that this was not paid attention to by the staff members. Review of Systems Review of Systems: Patient is a significantly weak in lower limbs right more than left side. Exam Narrative: Fully conscious alert pleasant and cooperative. No aphasia or dysarthria. Examination head and neck was unremarkable. Cranial nerves on individual testing are intact. Extraocular movements are normal. No facial asymmetry. Tongue was midline. Other cranial normal limits. Motor system normal power in both upper limbs except sleep mild weakness in the right than left side. Significant weakness in both lower limbs right more than left side. No involuntary movements are seen. Objective Data Vital Signs Vital Signs: Vital Signs - 24 hr 07/27/25 18:35 07/27/25 18:54 07/27/25 20:00 Temperature 98.1 F Pulse Rate 91 97 90 Respiratory Rate 20 24 H Blood Pressure 112/61 Pulse Oximetry 99 Oxygen Delivery Oxygen Flow Rate 07/27/25 20:40 07/27/25 20:42 07/27/25 20:47 Temperature 98.0 F Pulse Rate 97 90 Respiratory Rate 24 H 20 Blood Pressure 101/49 L Pulse Oximetry 99 99 94 Oxygen Delivery Nasal Cannula Nasal Cannula Oxygen Flow Rate 3 3 07/27/25 22:00 07/27/25 23:42 07/28/25 00:00 Temperature Pulse Rate 75 75 73 Respiratory Rate 20 Blood Pressure Pulse Oximetry 94 Oxygen Delivery Nasal Cannula Oxygen Flow Rate 3 07/28/25 00:09 07/28/25 02:00 07/28/25 04:00 Temperature 97.8 F Pulse Rate 82 76 80 Respiratory Rate 20 Blood Pressure 95/52 L Pulse Oximetry 95 Oxygen Delivery Oxygen Flow Rate 07/28/25 04:00 07/28/25 04:16 07/28/25 06:00 Temperature 97.8 F Pulse Rate 77 76 79 Respiratory Rate 16 20 Blood Pressure 91/46 L Pulse Oximetry 96 95 Oxygen Delivery Nasal Cannula Oxygen Flow Rate 3 07/28/25 08:00 07/28/25 08:00 07/28/25 08:23 Temperature 98.1 F Pulse Rate 55 L 73 67 Respiratory Rate 24 H Blood Pressure 83/46 L Pulse Oximetry 97 Oxygen Delivery Oxygen Flow Rate 07/28/25 08:24 07/28/25 10:00 07/28/25 12:00 Temperature Pulse Rate 85 83 Respiratory Rate Blood Pressure Pulse Oximetry 90 Oxygen Delivery Nasal Cannula Oxygen Flow Rate 3 07/28/25 12:00 07/28/25 14:00 07/28/25 16:00 Temperature 98.8 F Pulse Rate 105 H 105 H 108 H Respiratory Rate 24 H Blood Pressure 119/54 L Pulse Oximetry 96 Oxygen Delivery Oxygen Flow Rate 07/28/25 16:00 Temperature 99.3 F Pulse Rate 108 H Respiratory Rate 20 Blood Pressure 106/63 Pulse Oximetry 100 Oxygen Delivery Oxygen Flow Rate Intake/Output Intake/Output: Intake & Output 07/25/25 07/26/25 07/27/25 07/28/25 23:59 23:59 23:59 23:59 Intake Total 2850 1900 1530 Output Total 1125 750 Balance 2850 775 780 Meds/Results Medications: Active Medications Generic Name Dose Route Start Last Admin Trade Name Freq PRN Reason Stop Dose Admin Albuterol/Ipratropium 3 ml 07/27/25 17:46 07/27/25 18:34 Ipratropium 0.5 Mg/Albuterol Sulfate 2.5 Mg Ampul.Neb 3 Ml INHALATION 3 ml Q6HRT PRN Administration Shortness Of Breath Dextrose 12.5 gm 07/26/25 22:31 Dextrose 50% 25 Gm/50 Ml Syringe IV PUSH PRN PRN Hypoglycemia Protocol Diphenhydramine HCl 25 mg 07/27/25 17:10 Diphenhydramine Hcl Inj 50 Mg/Ml Vial IV PUSH Q6H PRN Itching Enoxaparin Sodium 40 mg 07/28/25 18:00 07/28/25 17:23 Enoxaparin 40 Mg/0.4 Ml Syringe SUB-Q 40 mg Q24H MICAH Administration Fluticasone/Umeclidinium/Vilanterol 1 puff 07/27/25 08:00 07/28/25 08:23 Fluticasone/Umeclidin/Vilanter 100-62.5-25 Mcg Ellipta INHALATION 1 puff DAILYRT MICAH Administration Glucose 15 gm 07/26/25 22:31 Glucose Oral Gel 15 Gm Of Glucse In 37.5 Gm Tube PO PRN PRN Hypoglycemia Protocol Hydromorphone HCl 1 mg 07/27/25 17:10 Hydromorphone Hcl Inj (*Crx) 1 Mg/Ml Syr IV PUSH Q2H PRN Breakthrough Pain Rated 7-10 or NPO Hydromorphone HCl 0.5 mg 07/27/25 17:10 Hydromorphone Hcl Inj (*Crx) 1 Mg/Ml Syr IV PUSH Q2H PRN Breakthrough Pain Rated 4-6 or NPO Cefepime HCl 2 gm/ Sodium 50 mls @ 100 mls/hr 07/27/25 05:00 07/28/25 17:46 Chloride IVPB Infused Q12H MICAH Infusion Metronidazole 500 mg in 100 mls @ 100 mls/hr 07/26/25 22:00 07/28/25 15:16 Flagyl 500 Mg/Iso Soln 100 Ml IVPB Infused Q8H MICAH Infusion Dextrose 1,000 mls @ 100 mls/hr 07/26/25 22:31 Dextrose 5% 1,000 Ml IVPB PRN PRN Hypoglycemia Protocol Ibuprofen 800 mg in 200 mls @ 400 mls/hr 07/27/25 17:10 Caldolor 800 Mg/200 Ml IVPB Q6H PRN Breakthrough Pain Rated 1-3 or NPO Vancomycin HCl 1,750 mg in 500 mls @ 250 mls/hr 07/28/25 05:00 07/28/25 17:59 Vancomycin 1,750 Mg/Ns 500 Ml IVPB 250 mls/hr Q12H MICAH Administration Naloxone HCl 0.1 mg 07/27/25 17:10 Naloxone Hcl 0.4 Mg/Ml Vial IV PUSH Q2M PRN Opiate Reversal Ondansetron HCl 4 mg 07/27/25 17:10 Ondansetron Inj 4 Mg/2 Ml Vial IV PUSH Q4H PRN Nausea And Vomiting Radiology Results: ITS Impressions Chest X-Ray 07/26/25 15:14 Impression: 1: No acute cardiopulmonary disease. Abdomen/Pelvis CT 07/26/25 18:25 IMPRESSION: 1. Small focal ulceration with mild inflammatory change involving the posterior soft tissues just below the coccyx. No drainable fluid collection identified. 2: Moderately distended small bowel and colon with air-fluid levels, consistent with ileus. Head CT 07/27/25 08:07 IMPRESSION: 1. Age-related changes including mild to moderate diffuse volume loss and moderate scattered white matter hypoattenuation consistent with chronic small vessel ischemic disease. No acute intracranial process. Abdomen X-Ray 07/28/25 13:00 IMPRESSION: 1. Left lower lobe airspace disease, suspicious for pneumonia. 2: Small left pleural effusion. Labs Labs: Laboratory Results - last 24 hr 07/27/25 07/28/25 07/28/25 18:36 00:33 04:03 WBC 14.8 H RBC 3.62 L Hgb 10.5 L Hct 34.2 L MCV 94.5 MCH 29.0 MCHC 30.7 L RDW 14.0 Plt Count 297 MPV 9.6 Sodium 134 L Potassium 4.3 Chloride 104 Carbon Dioxide 28 Anion Gap 2 L BUN 10 Creatinine 0.55 L Estim Creat Clear Calc 103 Estimated GFR > 60 Glucose 115 H POC Capillary Glucose 98 120 H Calcium 7.7 L Magnesium 1.8 Vancomycin Trough 13.9 07/28/25 11:40 WBC RBC Hgb Hct MCV MCH MCHC RDW Plt Count MPV Sodium Potassium Chloride Carbon Dioxide Anion Gap BUN Creatinine Estim Creat Clear Calc Estimated GFR Glucose POC Capillary Glucose 126 H Calcium Magnesium Vancomycin Trough
[2025-07-28] MEDS: MONTELUKAST SODIUM 10 MG TABLET PO (21:17)
--- NOTE | 2025-07-28 22:08 | PC.NURSE ---
This patient, Bashir Gruber Sr., was transferred to [facility] on 07/28/25 at 2208. Personal belongings sent with patient. Report given to RN. Appropriate documentation sent with patient.
--- NOTE | 2025-07-28 22:24 | PC.NURSE ---
Daughter & THONGBridget Morrow notified of patient transfer to room 306 bed 1. All questions answered. No further updates at this time.
--- NOTE | 2025-07-28 22:51 | PC.NURSE ---
Patient received from IMU, ADMITTED TO BED 306-2. Assessment performed.
[2025-07-29] MEDS: CEFEPIME 2 GM in SODIUM CHLORIDE 0.9% IV 50 ML 100 ML IVPB (05:11)
[2025-07-29 05:20] VITALS: BP 95/59; PULSE 81; RESP 18; TEMP 35.9; O2SAT 94
[2025-07-29 05:32] LABS: Hematocrit 35.9 % (42.0-52.0); Hemoglobin 10.9 g/dL (14.0-18.0); Immature Granulocyte Percent A 4.6 % (0-0.5); Lymphocytes Absolute Auto 2.73 K/mm3 (0.9-3.2); Mean Corpuscular HGB Conc 30.4 g/dl (32-36); Mean Corpuscular Hemoglobin 28.8 pg (26-34); Mean Corpuscular Volume 94.7 fl (80-100); Nucleated Red Blood Cells Absolute Auto 0.000 K/mm3 (0.0-0.012); Nucleated Red Blood Cells Perc 0.0 % (0.0-0.2); Platelet Count Result 333 k/mm3 (150-375); Red Blood Count 3.79 M/mm3 (4.6-6.20); White Blood Count 14.7 K/mm3 (4.5-10.0)
[2025-07-29] MEDS: metroNIDAZOLE 500 MG/ISO 100ML 500 MG/100 ML BAG 100 MG IVPB ×2 (05:51→14:37)
[2025-07-29 05:55] LABS: Anion Gap 2 mmol/L (4-12); Blood Urea Nitrogen 11 mg/dL (9-20); Calcium 7.7 mg/dL (8.4-10.2); Carbon Dioxide 27 mmol/L (22-30); Chloride 106 mmol/L (98-107); Estimated CRCL calculation 117 ml/min; Estimated Glomerular Filt Rate > 60; Glucose 124 mg/dL (65-110); Potassium 3.4 mmol/L (3.4-5.0); Sodium 135 mmol/L (137-145)
[2025-07-29 07:05] LABS: Vitamin B12 231.0 pg/mL (239-931)
[2025-07-29] MEDS: VANCOMYCIN 1,750 MG/NS 500 ML 1,750 MG/500 ML BAG 250 MG IVPB (07:08)
[2025-07-29 07:56] VITALS: O2SAT 93
[2025-07-29] MEDS: FLUTICASONE/UMECLIDIN/VILANTER 100-62.5-25 MCG ELLIPTA 1 PUFF INHALATION (07:56)
[2025-07-29 08:00] VITALS: O2SAT 94
[2025-07-29] MEDS: ASCORBIC ACID 500 MG TABLET PO (09:03)
[2025-07-29] MEDS: CYANOCOBALAMIN 1,000 MCG TABLET 1000 MCG PO (09:03)
[2025-07-29] MEDS: CHOLECALCIFEROL (VITAMIN D3) 25 MCG (1,000 UNITS) TABLET PO (09:04)
[2025-07-29] MEDS: CYANOCOBALAMIN INJ 1,000 MCG/ML VIAL 1000 MCG IM (09:04)
--- NOTE | 2025-07-29 11:10 | PCNFU ---
Nutrition Follow-Up Complete: Increased protein energy needs related to pressure injuries as evidenced by wound report Goal: Diet advancement Intakes adequate to support wound healing Pt progressing to goals, continue with current goals Pt current nutrition is Regular, Ensure BID, LAKESHA BID. Nutrition recommendation: continue with current plan of care Last recorded weight is 72.5 kg. Bowel Motility: No BM recorded at this time Labs Reviewed: HGB:10.9, HCT:35.9, NA:135, Cr:0.48, Glu:124 Meds Noted: Miralax, lovenox, Vit C Skin: multiple pressure injuries Additional Notes: Pt diet upgraded to regular, intake 20%. Ensure TID in place for supplement, LAKESHA BID for wound healing. Encourage intake. Agree with orders Monitoring diet orders, weights, labs, GI function, wounds, plan of care Follow up in 3 days
--- NOTE | 2025-07-29 14:02 | P.PNIM_ITS ---
Progress Note: A&P Assessment and Plan (1) Sepsis: Code(s): A41.9 - Sepsis, unspecified organism Status: Acute (2) Altered mental status: Code(s): R41.82 - Altered mental status, unspecified Status: Acute (3) Ileus: Code(s): K56.7 - Ileus, unspecified Status: Acute (4) Decubitus ulcer, infected: Code(s): L89.90 - Pressure ulcer of unspecified site, unspecified stage; L08.9 - Local infection of the skin and subcutaneous tissue, unspecified Status: Acute (5) Hypoxia: Code(s): R09.02 - Hypoxemia Status: Acute (6) Multiple sclerosis: Code(s): G35 - Multiple sclerosis Status: Chronic (7) COPD (chronic obstructive pulmonary disease): Code(s): J44.9 - Chronic obstructive pulmonary disease, unspecified Status: Chronic (8) UTI (urinary tract infection): Code(s): N39.0 - Urinary tract infection, site not specified Status: Acute Plan Sepsis - possibly related to either UTI and/or decubitus ulcer to the sacrum and left heel, right lateral foot with some purulence. Blood pressure was soft and patient given 30 cc per kg bolus. CXR was clear. Influenza, RSV and COVID PCR negative. CT abdomen pelvis shows decubitus ulcer without abscess, likely ileus as well. Lactic acid normal. White count 17 K, urinalysis grossly abnormal. He was started on cefepime vancomycin and metronidazole. General surgery consulted and patient underwent sharp excisional debridement stage IV sacral decubitus ulcer including skin, subcutaneous fat, muscle, and fascia/tendon measuring 15 cm x 8 cm on 07/27/25. BCx NGTD UCx pending WBC down to 14K. Continue IV abx. Continue wound care. Appreciate GenSurg input. Discussed with GenSurg and they wee okay with resuming Xarelto AMS - Head CT showing age-related changes including mild-moderate diffuse volume loss and moderate scattered white matter hypoattenuation consistent with chronic small-vessel ischemic disease but no acute. Ammonia level negative. TSH normal. Urine drug screen negative. Likely has metabolic encephalopathy due to UTI, infected sacral, B12 deficiency and less likely MS flare. B12 level low at 231. Folate normal. Vit D <12.8. Symptoms improving. Fall precautions. Replace B12 and VitD Ileus -CT scan showed probable ileus related to sepsis. Serial exams and Abdominal x-rays showing ileus has resolved. Diet resumed and tolerating this well. Miralax added. No BMs documented yet. Follow Decubitus ulcers -related to the fact that he is bed-bound from his MS. As above. Hypoxia -patient was 88% on room air. Chest x-ray was clear. Viral PCR was negative. He is on Xarelto at home making PE less likely. remains on 2L. Wean oxygen as tolerated. MS -patient on interferon prior to admission. Mental status improving. Follow. Holding Interferon. Monitor mental status. COPD -no wheezing appreciated but he remains on oxygen. Continue Trelegy. Albuterol p.r.n.. UTI -patient with a chronic indwelling urinary catheter related to urine retention from his MS most likely. Patient with complicated UTI related to his urinary catheter. Follow cultures. Treatment as above. Rash - possibly irritant. Rash has resolved. Follow Code status - Full code. DVT prophylaxis - SCDs. Lovenox -> Xarelto Subjective Date/time seen: 07/29/25 14:02 Interval history: 69yo male bed-bound jail patient from [place] who presents with altered mental status. I feel like crap but can not provide any symptoms that is causing this complaint. No CP, SOB, cough. Denies pain. He does feel depressed. Exam Narrative: AF 96.6 95/59 81 18 94% 2L Gen - NARD Chest - left base crackles otherwise clear. CV - RRR S1/S2 Abd -soft. NT/ND, +BS - [place] secured draining cloudy yellow urine Ext - trace pedal edema Neuro - more alert and appropriate Psych - Nml mood and affect Skin - Warm and dry. Multiple dressings including his sacrum, buttocks, left hip, left heel and right foot. Objective Data Vital Signs Vital Signs: Vital Signs - 24 hr 07/28/25 16:00 07/28/25 16:00 07/28/25 20:15 Temperature 99.3 F Pulse Rate 108 H 108 H Respiratory Rate 20 18 Blood Pressure 106/63 Pulse Oximetry 100 100 Oxygen Delivery Nasal Cannula Oxygen Flow Rate 3 07/28/25 20:15 07/29/25 05:20 07/29/25 07:56 Temperature 96.6 F L Pulse Rate 110 H 81 Respiratory Rate 18 Blood Pressure 95/59 L Pulse Oximetry 94 94 93 Oxygen Delivery Nasal Cannula Nasal Cannula Oxygen Flow Rate 2 2 07/29/25 08:00 Temperature Pulse Rate Respiratory Rate Blood Pressure Pulse Oximetry 94 Oxygen Delivery Nasal Cannula Oxygen Flow Rate 2 Intake/Output Intake/Output: Intake & Output 07/26/25 07/27/25 07/28/25 07/29/25 23:59 23:59 23:59 23:59 Intake Total 2850 1900 2550 900 Output Total 1125 1300 425 Balance 2850 775 1250 475 Meds/Results Medications: Active Medications Generic Name Dose Route Start Last Admin Trade Name Freq PRN Reason Stop Dose Admin Albuterol/Ipratropium 3 ml 07/27/25 17:46 07/27/25 18:34 Ipratropium 0.5 Mg/Albuterol Sulfate 2.5 Mg Ampul.Neb 3 Ml INHALATION 3 ml Q6HRT PRN Administration Shortness Of Breath Ascorbic Acid 500 mg 07/29/25 09:00 07/29/25 09:03 Ascorbic Acid 500 Mg Tablet PO 500 mg DAILY MICAH Administration Cyanocobalamin 1,000 mcg 07/29/25 09:00 07/29/25 09:04 Cyanocobalamin Inj 1,000 Mcg/Ml Vial IM 08/01/25 08:59 1,000 mcg DAILY MICAH Administration Cyanocobalamin 1,000 mcg 07/29/25 09:00 07/29/25 09:03 Cyanocobalamin 1,000 Mcg Tablet PO 1,000 mcg QAM MICAH Administration Dextrose 12.5 gm 07/26/25 22:31 Dextrose 50% 25 Gm/50 Ml Syringe IV PUSH PRN PRN Hypoglycemia Protocol Diphenhydramine HCl 25 mg 07/27/25 17:10 Diphenhydramine Hcl Inj 50 Mg/Ml Vial IV PUSH Q6H PRN Itching Enoxaparin Sodium 40 mg 07/28/25 18:00 07/28/25 17:23 Enoxaparin 40 Mg/0.4 Ml Syringe SUB-Q 40 mg Q24H MICAH Administration Fluticasone/Umeclidinium/Vilanterol 1 puff 07/27/25 08:00 07/29/25 07:56 Fluticasone/Umeclidin/Vilanter 100-62.5-25 Mcg Ellipta INHALATION 1 puff DAILYRT MICAH Administration Glucose 15 gm 07/26/25 22:31 Glucose Oral Gel 15 Gm Of Glucse In 37.5 Gm Tube PO PRN PRN Hypoglycemia Protocol Hydromorphone HCl 1 mg 07/27/25 17:10 Hydromorphone Hcl Inj (*Crx) 1 Mg/Ml Syr IV PUSH Q2H PRN Breakthrough Pain Rated 7-10 or NPO Hydromorphone HCl 0.5 mg 07/27/25 17:10 Hydromorphone Hcl Inj (*Crx) 1 Mg/Ml Syr IV PUSH Q2H PRN Breakthrough Pain Rated 4-6 or NPO Cefepime HCl 2 gm/ Sodium 50 mls @ 100 mls/hr 07/27/25 05:00 07/29/25 05:11 Chloride IVPB 100 mls/hr Q12H MICAH Administration Metronidazole 500 mg in 100 mls @ 100 mls/hr 07/26/25 22:00 07/29/25 05:51 Flagyl 500 Mg/Iso Soln 100 Ml IVPB 100 mls/hr Q8H MICAH Administration Dextrose 1,000 mls @ 100 mls/hr 07/26/25 22:31 Dextrose 5% 1,000 Ml IVPB PRN PRN Hypoglycemia Protocol Ibuprofen 800 mg in 200 mls @ 400 mls/hr 07/27/25 17:10 Caldolor 800 Mg/200 Ml IVPB Q6H PRN Breakthrough Pain Rated 1-3 or NPO Vancomycin HCl 1,750 mg in 500 mls @ 250 mls/hr 07/28/25 05:00 07/29/25 09:08 Vancomycin 1,750 Mg/Ns 500 Ml IVPB Infused Q12H MICAH Infusion Montelukast Sodium 10 mg 07/28/25 21:00 07/28/25 21:17 Montelukast Sodium 10 Mg Tablet PO 10 mg HS MICAH Administration Naloxone HCl 0.1 mg 07/27/25 17:10 Naloxone Hcl 0.4 Mg/Ml Vial IV PUSH Q2M PRN Opiate Reversal Ondansetron HCl 4 mg 07/27/25 17:10 Ondansetron Inj 4 Mg/2 Ml Vial IV PUSH Q4H PRN Nausea And Vomiting Polyethylene Glycol 17 gm 07/28/25 19:20 07/29/25 09:03 Polyethylene Glycol 3350 17 Gm Powd.Pack PO 17 gm QAM MICAH Administration Vitamin D 25 mcg 07/29/25 09:00 07/29/25 09:04 Cholecalciferol (Vitamin D3) 25 Mcg (1,000 Units) Tablet PO 25 mcg DAILY MICAH Administration Radiology Results: ITS Impressions Chest X-Ray 07/26/25 15:14 Impression: 1: No acute cardiopulmonary disease. Abdomen/Pelvis CT 07/26/25 18:25 IMPRESSION: 1. Small focal ulceration with mild inflammatory change involving the posterior soft tissues just below the coccyx. No drainable fluid collection identified. 2: Moderately distended small bowel and colon with air-fluid levels, consistent with ileus. Head CT 07/27/25 08:07 IMPRESSION: 1. Age-related changes including mild to moderate diffuse volume loss and moderate scattered white matter hypoattenuation consistent with chronic small vessel ischemic disease. No acute intracranial process. Abdomen X-Ray 07/28/25 13:00 IMPRESSION: 1. Left lower lobe airspace disease, suspicious for pneumonia. 2: Small left pleural effusion. Labs Labs: Laboratory Results - last 24 hr 07/28/25 07/29/25 07/29/25 19:01 00:56 05:15 WBC 14.7 H RBC 3.79 L Hgb 10.9 L Hct 35.9 L MCV 94.7 MCH 28.8 MCHC 30.4 L RDW 14.3 Plt Count 333 MPV 9.7 Immature Gran % (Auto) 4.6 H Neut % (Auto) 62.7 Lymph % (Auto) 18.6 [place] % (Auto) 7.6 Eos % (Auto) 5.8 H Baso % (Auto) 0.7 Lymph # (Auto) 2.73 [place] # (Auto) 1.1 H Eos # (Auto) 0.9 H Baso # (Auto) 0.1 Abs Immat Gran (auto) 0.68 H Absolute Neuts (auto) 9.2 H Absolute Nucleated RBC 0.000 Nucleated RBC % 0.0 Sodium 135 L Potassium 3.4 Chloride 106 Carbon Dioxide 27 Anion Gap 2 L BUN 11 Creatinine 0.48 L Estim Creat Clear Calc 117 Estimated GFR > 60 Glucose 124 H POC Capillary Glucose 137 H 161 H Calcium 7.7 L Vitamin B12 231.0 L Vitamin D 25-Hydroxy < 12.8 Folate 14.4 07/29/25 07/29/25 07:49 12:19 WBC RBC Hgb Hct MCV MCH MCHC RDW Plt Count MPV Immature Gran % (Auto) Neut % (Auto) Lymph % (Auto) [place] % (Auto) Eos % (Auto) Baso % (Auto) Lymph # (Auto) [place] # (Auto) Eos # (Auto) Baso # (Auto) Abs Immat Gran (auto) Absolute Neuts (auto) Absolute Nucleated RBC Nucleated RBC % Sodium Potassium Chloride Carbon Dioxide Anion Gap BUN Creatinine Estim Creat Clear Calc Estimated GFR Glucose POC Capillary Glucose 120 H 147 H Calcium Vitamin B12 Vitamin D 25-Hydroxy Folate
--- NOTE | 2025-07-29 14:15 | PM.PNGS ---
Progress Note: A&P Assessment and Plan (1) Decubitus ulcer, infected: Code(s): L89.90 - Pressure ulcer of unspecified site, unspecified stage; L08.9 - Local infection of the skin and subcutaneous tissue, unspecified Status: Acute Assessment and Plan: Pod 2 status post strep excisional debridement stage IV sacral decubitus ulcer including skin, subcutaneous fat, muscle, and fascia/tendon measuring 15 cm x 8 cm. Wound appears stable this morning with no saturation through the dressing. No active bleeding. Wound repacked this afternoon with nurse and myself at bedside. Blood thinners resumed yesterday. No active bleeding from the wound. Continue packing the sacral wound with Dakin soaked 4 in Kerlix. For left hip wound, apply Betadine to the area and cover with a Mepilex dressing. For right lateral foot ulcer, apply silver gel and cover with Mepilex border dressing. Cover heels with Mepilex border dressing. Continue IV cefepime, Flagyl, vancomycin. WBC remains elevated at 14.7 today. (2) Sepsis: Code(s): A41.9 - Sepsis, unspecified organism Status: Acute Assessment and Plan: Source likely related to decubitus ulcer vs UTI vs combination. Continue broad-spectrum IV antibiotics Blood cultures pending -preliminarily no growth (3) UTI (urinary tract infection): Code(s): N39.0 - Urinary tract infection, site not specified Status: Acute Assessment and Plan: Continue IV antibiotics. Urine culture pending (4) Multiple sclerosis: Code(s): G35 - Multiple sclerosis Status: Chronic (5) COPD (chronic obstructive pulmonary disease): Code(s): J44.9 - Chronic obstructive pulmonary disease, unspecified Status: Chronic Assessment and Plan: Reportedly diagnosed with COPD about a month ago and quit smoking at that time (6) Right foot ulcer: Code(s): L97.519 - Non-pressure chronic ulcer of other part of right foot with unspecified severity Status: Acute Assessment and Plan: Unstageable right lateral foot ulcer appears stable and does not appear to be infected. Continue to elevate his heels off the bed as the boots are rubbing on this wound. Continue local wound care to the right foot ulcer with silver gel and Mepilex border. Plan I have discussed the patient's case and plan of care with Dr. Richardson. Subjective Subjective Date/Time Seen: 07/29/25 14:15 Post Op day: 2 (Sharp excisional debridement stage IV sacral decubitus ulcer including skin, subcutaneous fat, muscle, and fascia/tendon measuring 15 cm x 8 cm) Patient reports: no new complaints, tolerating a regular diet, no bowel movement and afebrile Interval history: No acute events overnight. WBC remains at 14,000. Hemoglobin stable. Exam Skin: Other: Pod 2 status post sharp excisional debridement. Large sacral decubitus ulcer with mostly pink viable healthy tissue. Area in the middle with de [place] and brown slough. Dressing change today with myself and nurse at bedside. Patient tolerated well. No new areas of fluctuance. No purulent drainage expressed. Left hip wound stable and firm. Ankle and heel wounds stable. Objective Data Vital Signs Vital Signs: Vital Signs - 24 hr 07/28/25 16:00 07/28/25 16:00 07/28/25 20:15 Temperature 99.3 F Pulse Rate 108 H 108 H Respiratory Rate 20 18 Blood Pressure 106/63 Pulse Oximetry 100 100 Oxygen Delivery Nasal Cannula Oxygen Flow Rate 3 07/28/25 20:15 07/29/25 05:20 07/29/25 07:56 Temperature 96.6 F L Pulse Rate 110 H 81 Respiratory Rate 18 Blood Pressure 95/59 L Pulse Oximetry 94 94 93 Oxygen Delivery Nasal Cannula Nasal Cannula Oxygen Flow Rate 2 2 07/29/25 08:00 Temperature Pulse Rate Respiratory Rate Blood Pressure Pulse Oximetry 94 Oxygen Delivery Nasal Cannula Oxygen Flow Rate 2 Intake/Output Intake/Output: Intake & Output 07/26/25 07/27/25 07/28/25 07/29/25 23:59 23:59 23:59 23:59 Intake Total 2850 1900 2550 900 Output Total 1125 1300 425 Balance 2850 775 1250 475 Meds/Results Medications: Active Medications Generic Name Dose Route Start Last Admin Trade Name Freq PRN Reason Stop Dose Admin Albuterol/Ipratropium 3 ml 07/27/25 17:46 07/27/25 18:34 Ipratropium 0.5 Mg/Albuterol Sulfate 2.5 Mg Ampul.Neb 3 Ml INHALATION 3 ml Q6HRT PRN Administration Shortness Of Breath Ascorbic Acid 500 mg 07/29/25 09:00 07/29/25 09:03 Ascorbic Acid 500 Mg Tablet PO 500 mg DAILY MICAH Administration Cyanocobalamin 1,000 mcg 07/29/25 09:00 07/29/25 09:04 Cyanocobalamin Inj 1,000 Mcg/Ml Vial IM 08/01/25 08:59 1,000 mcg DAILY MICAH Administration Cyanocobalamin 1,000 mcg 07/29/25 09:00 07/29/25 09:03 Cyanocobalamin 1,000 Mcg Tablet PO 1,000 mcg QAM MICAH Administration Dextrose 12.5 gm 07/26/25 22:31 Dextrose 50% 25 Gm/50 Ml Syringe IV PUSH PRN PRN Hypoglycemia Protocol Diphenhydramine HCl 25 mg 07/27/25 17:10 Diphenhydramine Hcl Inj 50 Mg/Ml Vial IV PUSH Q6H PRN Itching Enoxaparin Sodium 40 mg 07/28/25 18:00 07/28/25 17:23 Enoxaparin 40 Mg/0.4 Ml Syringe SUB-Q 40 mg Q24H MICAH Administration Fluticasone/Umeclidinium/Vilanterol 1 puff 07/27/25 08:00 07/29/25 07:56 Fluticasone/Umeclidin/Vilanter 100-62.5-25 Mcg Ellipta INHALATION 1 puff DAILYRT MICAH Administration Glucose 15 gm 07/26/25 22:31 Glucose Oral Gel 15 Gm Of Glucse In 37.5 Gm Tube PO PRN PRN Hypoglycemia Protocol Hydromorphone HCl 1 mg 07/27/25 17:10 Hydromorphone Hcl Inj (*Crx) 1 Mg/Ml Syr IV PUSH Q2H PRN Breakthrough Pain Rated 7-10 or NPO Hydromorphone HCl 0.5 mg 07/27/25 17:10 Hydromorphone Hcl Inj (*Crx) 1 Mg/Ml Syr IV PUSH Q2H PRN Breakthrough Pain Rated 4-6 or NPO Cefepime HCl 2 gm/ Sodium 50 mls @ 100 mls/hr 07/27/25 05:00 07/29/25 05:11 Chloride IVPB 100 mls/hr Q12H MICAH Administration Metronidazole 500 mg in 100 mls @ 100 mls/hr 07/26/25 22:00 07/29/25 05:51 Flagyl 500 Mg/Iso Soln 100 Ml IVPB 100 mls/hr Q8H MICAH Administration Dextrose 1,000 mls @ 100 mls/hr 07/26/25 22:31 Dextrose 5% 1,000 Ml IVPB PRN PRN Hypoglycemia Protocol Ibuprofen 800 mg in 200 mls @ 400 mls/hr 07/27/25 17:10 Caldolor 800 Mg/200 Ml IVPB Q6H PRN Breakthrough Pain Rated 1-3 or NPO Vancomycin HCl 1,750 mg in 500 mls @ 250 mls/hr 07/28/25 05:00 07/29/25 09:08 Vancomycin 1,750 Mg/Ns 500 Ml IVPB Infused Q12H MICAH Infusion Montelukast Sodium 10 mg 07/28/25 21:00 07/28/25 21:17 Montelukast Sodium 10 Mg Tablet PO 10 mg HS MICAH Administration Naloxone HCl 0.1 mg 07/27/25 17:10 Naloxone Hcl 0.4 Mg/Ml Vial IV PUSH Q2M PRN Opiate Reversal Ondansetron HCl 4 mg 07/27/25 17:10 Ondansetron Inj 4 Mg/2 Ml Vial IV PUSH Q4H PRN Nausea And Vomiting Polyethylene Glycol 17 gm 07/28/25 19:20 07/29/25 09:03 Polyethylene Glycol 3350 17 Gm Powd.Pack PO 17 gm QAM MICAH Administration Vitamin D 25 mcg 07/29/25 09:00 07/29/25 09:04 Cholecalciferol (Vitamin D3) 25 Mcg (1,000 Units) Tablet PO 25 mcg DAILY MICAH Administration Radiology Results: ITS Impressions Chest X-Ray 07/26/25 15:14 Impression: 1: No acute cardiopulmonary disease. Abdomen/Pelvis CT 07/26/25 18:25 IMPRESSION: 1. Small focal ulceration with mild inflammatory change involving the posterior soft tissues just below the coccyx. No drainable fluid collection identified. 2: Moderately distended small bowel and colon with air-fluid levels, consistent with ileus. Head CT 07/27/25 08:07 IMPRESSION: 1. Age-related changes including mild to moderate diffuse volume loss and moderate scattered white matter hypoattenuation consistent with chronic small vessel ischemic disease. No acute intracranial process. Abdomen X-Ray 07/28/25 13:00 IMPRESSION: 1. Left lower lobe airspace disease, suspicious for pneumonia. 2: Small left pleural effusion. Labs Labs: Laboratory Results - last 24 hr 07/28/25 07/29/25 07/29/25 19:01 00:56 05:15 WBC 14.7 H RBC 3.79 L Hgb 10.9 L Hct 35.9 L MCV 94.7 MCH 28.8 MCHC 30.4 L RDW 14.3 Plt Count 333 MPV 9.7 Immature Gran % (Auto) 4.6 H Neut % (Auto) 62.7 Lymph % (Auto) 18.6 [place] % (Auto) 7.6 Eos % (Auto) 5.8 H Baso % (Auto) 0.7 Lymph # (Auto) 2.73 [place] # (Auto) 1.1 H Eos # (Auto) 0.9 H Baso # (Auto) 0.1 Abs Immat Gran (auto) 0.68 H Absolute Neuts (auto) 9.2 H Absolute Nucleated RBC 0.000 Nucleated RBC % 0.0 Sodium 135 L Potassium 3.4 Chloride 106 Carbon Dioxide 27 Anion Gap 2 L BUN 11 Creatinine 0.48 L Estim Creat Clear Calc 117 Estimated GFR > 60 Glucose 124 H POC Capillary Glucose 137 H 161 H Calcium 7.7 L Vitamin B12 231.0 L Vitamin D 25-Hydroxy < 12.8 Folate 14.4 07/29/25 07/29/25 07:49 12:19 WBC RBC Hgb Hct MCV MCH MCHC RDW Plt Count MPV Immature Gran % (Auto) Neut % (Auto) Lymph % (Auto) [place] % (Auto) Eos % (Auto) Baso % (Auto) Lymph # (Auto) [place] # (Auto) Eos # (Auto) Baso # (Auto) Abs Immat Gran (auto) Absolute Neuts (auto) Absolute Nucleated RBC Nucleated RBC % Sodium Potassium Chloride Carbon Dioxide Anion Gap BUN Creatinine Estim Creat Clear Calc Estimated GFR Glucose POC Capillary Glucose 120 H 147 H Calcium Vitamin B12 Vitamin D 25-Hydroxy Folate
[2025-07-29 15:23] VITALS: BP 106/64; PULSE 86; RESP 18; TEMP 37.1; O2SAT 94
[2025-07-29] MEDS: RIVAROXABAN 10 MG TABLET PO (18:21)
[2025-07-29] MEDS: SULFAMETHOXAZOLE/TRIMETHOPRIM 800/160 MG DS TABLET 1 TAB PO (18:21)
[2025-07-29] MEDS: POTASSIUM CHLORIDE 20 MEQ PACKET (FOR LIQUID) 40 MEQ PO (18:21)
[2025-07-29] MEDS: MONTELUKAST SODIUM 10 MG TABLET PO (21:09)
[2025-07-30] VITALS (8 sets, daily range): BP systolic 90–119; BP diastolic 41–56; PULSE 79–95; RESP 16–24; TEMP 36.2–37.1; O2SAT 89–96
[2025-07-30 06:35] LABS: Hematocrit 35.5 % (42.0-52.0); Hemoglobin 10.8 g/dL (14.0-18.0); Mean Corpuscular HGB Conc 30.4 g/dl (32-36); Mean Corpuscular Hemoglobin 28.6 pg (26-34); Mean Corpuscular Volume 94.2 fl (80-100); Platelet Count Result 358 k/mm3 (150-375); Red Blood Count 3.77 M/mm3 (4.6-6.20); White Blood Count 16.6 K/mm3 (4.5-10.0)
[2025-07-30 07:03] LABS: Anion Gap -1 mmol/L (4-12); Blood Urea Nitrogen 9 mg/dL (9-20); Calcium 7.6 mg/dL (8.4-10.2); Carbon Dioxide 28 mmol/L (22-30); Chloride 107 mmol/L (98-107); Estimated CRCL calculation 123 ml/min; Estimated Glomerular Filt Rate > 60; Glucose 102 mg/dL (65-110); Magnesium 1.9 mg/dL (1.6-2.3); Potassium 3.7 mmol/L (3.4-5.0); Sodium 134 mmol/L (137-145)
[2025-07-30] MEDS: FLUTICASONE/UMECLIDIN/VILANTER 100-62.5-25 MCG ELLIPTA 1 PUFF INHALATION (07:27)
[2025-07-30] MEDS: CYANOCOBALAMIN INJ 1,000 MCG/ML VIAL 1000 MCG IM (10:24)
[2025-07-30] MEDS: CHOLECALCIFEROL (VITAMIN D3) 25 MCG (1,000 UNITS) TABLET PO (10:24)
[2025-07-30] MEDS: SULFAMETHOXAZOLE/TRIMETHOPRIM 800/160 MG DS TABLET 1 TAB PO ×2 (10:25→21:34)
[2025-07-30] MEDS: ASCORBIC ACID 500 MG TABLET PO (10:25)
[2025-07-30] MEDS: CYANOCOBALAMIN 1,000 MCG TABLET 1000 MCG PO (10:25)
--- NOTE | 2025-07-30 12:00 | P.PNGS_ITS ---
Progress Note: A&P Assessment and Plan (1) Decubitus ulcer, infected: Code(s): L89.90 - Pressure ulcer of unspecified site, unspecified stage; L08.9 - Local infection of the skin and subcutaneous tissue, unspecified Status: Acute Assessment and Plan: * Pod 3 status post strep excisional debridement stage IV sacral decubitus ulcer including skin, subcutaneous fat, muscle, and fascia/tendon measuring 15 cm x 8 cm. * Wound appears stable this morning with no saturation through the dressing. No active bleeding. Wound repacked with nurse and myself at bedside. Blood thinners resumed. No active bleeding from the wound. * Continue packing the sacral wound with Dakin soaked 4 in Kerlix. For left hip wound, apply Betadine to the area and cover with a Mepilex dressing. For right lateral foot ulcer, apply silver gel and cover with Mepilex border dressing. Cover heels with Mepilex border dressing. * Continue IV cefepime, Flagyl, vancomycin. WBC remains elevated * Stimulate bowels. (2) Sepsis: Code(s): A41.9 - Sepsis, unspecified organism Status: Acute Assessment and Plan: * Source likely related to decubitus ulcer vs UTI vs combination. Continue broad-spectrum IV antibiotics * Blood cultures pending -preliminarily no growth (3) UTI (urinary tract infection): Code(s): N39.0 - Urinary tract infection, site not specified Status: Acute Assessment and Plan: * Continue IV antibiotics. Urine culture pending (4) Multiple sclerosis: Code(s): G35 - Multiple sclerosis Status: Chronic (5) COPD (chronic obstructive pulmonary disease): Code(s): J44.9 - Chronic obstructive pulmonary disease, unspecified Status: Chronic Assessment and Plan: * Reportedly diagnosed with COPD about a month ago and quit smoking at that time (6) Right foot ulcer: Code(s): L97.519 - Non-pressure chronic ulcer of other part of right foot with unspecified severity Status: Acute Assessment and Plan: * Unstageable right lateral foot ulcer appears stable and does not appear to be infected. Continue to elevate his heels off the bed as the boots are rubbing on this wound. Continue local wound care to the right foot ulcer with silver gel and Mepilex border. Subjective Subjective Date/Time Seen: 07/30/25 12:00 Interval history: No significant changes with wounds. No BM yet. Exam GI: Inspection: non-distended GI Palp: Yes Soft to palpation, Yes Tenderness to palpation present (GI) and No Guarding due to palpation present (GI) Back/Spine/Pelvis: Other: Some persistent necrotic tissue overlying sacrum but rest of surrounding wound appears healthy and viable. No purulence drainage. Objective Data Vital Signs Vital Signs: Vital Signs - 24 hr 07/29/25 15:23 07/30/25 00:00 07/30/25 07:28 Temperature 98.7 F 98.0 F Pulse Rate 86 94 89 Respiratory Rate 18 18 20 Blood Pressure 106/64 98/56 L Pulse Oximetry 94 94 Oxygen Delivery Oxygen Flow Rate 07/30/25 07:31 07/30/25 11:21 Temperature 98.7 F Pulse Rate 90 85 Respiratory Rate 18 Blood Pressure 90/41 L Pulse Oximetry 89 L 89 L Oxygen Delivery Nasal Cannula Oxygen Flow Rate 1 Intake/Output Intake/Output: Intake & Output 07/27/25 07/28/25 07/29/25 07/30/25 23:59 23:59 23:59 23:59 Intake Total 1900 2550 1480 340 Output Total 1125 1300 1175 700 Balance 775 1250 305 -360 Meds/Results Medications: Active Medications Generic Name Dose Route Start Last Admin Trade Name Freq PRN Reason Stop Dose Admin Albuterol/Ipratropium 3 ml 07/27/25 17:46 07/27/25 18:34 Ipratropium 0.5 Mg/Albuterol Sulfate 2.5 Mg Ampul.Neb 3 Ml INHALATION 3 ml Q6HRT PRN Administration Shortness Of Breath Ascorbic Acid 500 mg 07/29/25 09:00 07/30/25 10:25 Ascorbic Acid 500 Mg Tablet PO 500 mg DAILY MICAH Administration Cyanocobalamin 1,000 mcg 07/29/25 09:00 07/30/25 10:24 Cyanocobalamin Inj 1,000 Mcg/Ml Vial IM 08/01/25 08:59 1,000 mcg DAILY MICAH Administration Cyanocobalamin 1,000 mcg 07/29/25 09:00 07/30/25 10:25 Cyanocobalamin 1,000 Mcg Tablet PO 1,000 mcg QAM MICAH Administration Dextrose 12.5 gm 07/26/25 22:31 Dextrose 50% 25 Gm/50 Ml Syringe IV PUSH PRN PRN Hypoglycemia Protocol Diphenhydramine HCl 25 mg 07/27/25 17:10 Diphenhydramine Hcl Inj 50 Mg/Ml Vial IV PUSH Q6H PRN Itching Fluticasone/Umeclidinium/Vilanterol 1 puff 07/27/25 08:00 07/30/25 07:27 Fluticasone/Umeclidin/Vilanter 100-62.5-25 Mcg Ellipta INHALATION 1 puff DAILYRT MICAH Administration Glucose 15 gm 07/26/25 22:31 Glucose Oral Gel 15 Gm Of Glucse In 37.5 Gm Tube PO PRN PRN Hypoglycemia Protocol Hydromorphone HCl 1 mg 07/27/25 17:10 Hydromorphone Hcl Inj (*Crx) 1 Mg/Ml Syr IV PUSH Q2H PRN Breakthrough Pain Rated 7-10 or NPO Hydromorphone HCl 0.5 mg 07/27/25 17:10 Hydromorphone Hcl Inj (*Crx) 1 Mg/Ml Syr IV PUSH Q2H PRN Breakthrough Pain Rated 4-6 or NPO Dextrose 1,000 mls @ 100 mls/hr 07/26/25 22:31 Dextrose 5% 1,000 Ml IVPB PRN PRN Hypoglycemia Protocol Ibuprofen 800 mg in 200 mls @ 400 mls/hr 07/27/25 17:10 Caldolor 800 Mg/200 Ml IVPB Q6H PRN Breakthrough Pain Rated 1-3 or NPO Metronidazole 500 mg 07/29/25 22:00 07/30/25 06:05 Metronidazole 500 Mg Tablet PO 08/01/25 22:01 500 mg Q8HR MICAH Administration Montelukast Sodium 10 mg 07/28/25 21:00 07/29/25 21:09 Montelukast Sodium 10 Mg Tablet PO 10 mg HS MICAH Administration Naloxone HCl 0.1 mg 07/27/25 17:10 Naloxone Hcl 0.4 Mg/Ml Vial IV PUSH Q2M PRN Opiate Reversal Ondansetron HCl 4 mg 07/27/25 17:10 Ondansetron Inj 4 Mg/2 Ml Vial IV PUSH Q4H PRN Nausea And Vomiting Polyethylene Glycol 17 gm 07/28/25 19:20 07/30/25 10:25 Polyethylene Glycol 3350 17 Gm Powd.Pack PO 17 gm QAM MICAH Administration Rivaroxaban 10 mg 07/29/25 17:00 07/29/25 18:21 Rivaroxaban 10 Mg Tablet PO 10 mg 1700 MICAH Administration Trimethoprim/Sulfamethoxazole 1 tab 07/29/25 19:00 07/30/25 10:25 Sulfamethoxazole/Trimethoprim 800/160 Mg Ds Tablet PO 08/01/25 21:01 1 tab Q12HR MICAH Administration Vitamin D 25 mcg 07/29/25 09:00 07/30/25 10:24 Cholecalciferol (Vitamin D3) 25 Mcg (1,000 Units) Tablet PO 25 mcg DAILY MICAH Administration Radiology Results: ITS Impressions Chest X-Ray 07/26/25 15:14 Impression: 1: No acute cardiopulmonary disease. Abdomen/Pelvis CT 07/26/25 18:25 IMPRESSION: 1. Small focal ulceration with mild inflammatory change involving the posterior soft tissues just below the coccyx. No drainable fluid collection identified. 2: Moderately distended small bowel and colon with air-fluid levels, consistent with ileus. Head CT 07/27/25 08:07 IMPRESSION: 1. Age-related changes including mild to moderate diffuse volume loss and moderate scattered white matter hypoattenuation consistent with chronic small vessel ischemic disease. No acute intracranial process. Abdomen X-Ray 07/28/25 13:00 IMPRESSION: 1. Left lower lobe airspace disease, suspicious for pneumonia. 2: Small left pleural effusion. Labs Labs: Laboratory Results - last 24 hr 07/29/25 07/29/25 07/29/25 12:19 17:03 20:04 WBC RBC Hgb Hct MCV MCH MCHC RDW Plt Count MPV Sodium Potassium Chloride Carbon Dioxide Anion Gap BUN Creatinine Estim Creat Clear Calc Estimated GFR Glucose POC Capillary Glucose 147 H 142 H 147 H Calcium Magnesium 07/30/25 07/30/25 06:11 07:44 WBC 16.6 H RBC 3.77 L Hgb 10.8 L Hct 35.5 L MCV 94.2 MCH 28.6 MCHC 30.4 L RDW 14.4 Plt Count 358 MPV 9.9 Sodium 134 L Potassium 3.7 Chloride 107 Carbon Dioxide 28 Anion Gap -1 L BUN 9 Creatinine 0.50 L Estim Creat Clear Calc 123 Estimated GFR > 60 Glucose 102 POC Capillary Glucose 103 Calcium 7.6 L Magnesium 1.9
[2025-07-30] MEDS: RIVAROXABAN 10 MG TABLET PO (16:27)
--- NOTE | 2025-07-30 16:55 | P.PNIM_ITS ---
Progress Note: A&P Assessment and Plan (1) Sepsis: Code(s): A41.9 - Sepsis, unspecified organism Status: Acute Assessment and Plan: Sepsis - possibly related to either UTI and/or decubitus ulcer to the sacrum and left heel, right lateral foot with some purulence. Blood pressure was soft and patient given 30 cc per kg bolus. CXR was clear. Influenza, RSV and COVID PCR negative. CT abdomen pelvis shows decubitus ulcer without abscess, likely ileus as well. Lung bases unremarkable. Lactic acid normal. White count 17 K. UA + for UTI. He was started on cefepime vancomycin and metronidazole. General surgery consulted and patient underwent sharp excisional debridement stage IV sacral decubitus ulcer including skin, subcutaneous fat, muscle, and fascia/tendon measuring 15 cm x 8 cm on 07/27/25. BCx NGTD UCx pending Abx changed to Bactrim and Flagyl. WBC up to 16K. Continue wound care. Appreciate GenSurg input. Monitor WBC. (2) Altered mental status: Code(s): R41.82 - Altered mental status, unspecified Status: Acute Assessment and Plan: AMS - Head CT showing age-related changes including mild-moderate diffuse volume loss and moderate scattered white matter hypoattenuation consistent with chronic small-vessel ischemic disease but no acute findings. Ammonia level negative. TSH normal. UDS negative. B12 level low at 231. Folate normal. Vit D <12.8. Likely has metabolic encephalopathy due to UTI, infected sacral, B12 deficiency and less likely MS flare. Symptoms improving. Fall precautions. Replacing B12 and VitD (3) Ileus: Code(s): K56.7 - Ileus, unspecified Status: Acute Assessment and Plan: Ileus -CT scan showed probable ileus related to sepsis. Serial exams and Abdominal x-rays showing ileus has resolved. Diet resumed and tolerating this well. Miralax added. No BMs documented yet. Advance Miralax. Follow (4) Decubitus ulcer, infected: Code(s): L89.90 - Pressure ulcer of unspecified site, unspecified stage; L08.9 - Local infection of the skin and subcutaneous tissue, unspecified Status: Acute Assessment and Plan: Related to the fact that he is bed-bound from his MS. As above. (5) Acute respiratory distress: Code(s): R06.03 - Acute respiratory distress Status: Acute Assessment and Plan: Patient was 88% on room air. Chest x-ray was clear. Lung bases unremarkable by CT. Viral PCR was negative. He is on Xarelto at home making PE less likely. He remains on supplemental O2. Wean oxygen as tolerated. repeat CXR (6) Multiple sclerosis: Code(s): G35 - Multiple sclerosis Status: Chronic Assessment and Plan: MS -patient on interferon prior to admission. Mental status improving. Follow. Holding Interferon. Monitor mental status. (7) COPD (chronic obstructive pulmonary disease): Code(s): J44.9 - Chronic obstructive pulmonary disease, unspecified Status: Chronic Assessment and Plan: No wheezing appreciated but he remains on oxygen. Continue Trelegy. Albuterol p.r.n.. (8) UTI (urinary tract infection): Code(s): N39.0 - Urinary tract infection, site not specified Status: Acute Assessment and Plan: Patient with a chronic indwelling urinary catheter related to urine retention from his MS most likely. Patient with complicated UTI related to his urinary catheter. Follow cultures. Treatment as above. Plan Code status - Full code. DVT prophylaxis - Xarelto Subjective Date/time seen: 07/30/25 16:55 Interval history: 69yo male bed-bound assisted patient from MS who presents with altered mental status. No problems overnight. Slept poorly. No CP or SOB. No cough Exam Narrative: AF 97.8 105/55 79 24 92% 3L Gen - NARD Chest - clear bilaterally. CV - RRR S1/S2 Abd -soft. NT/ND, +BS - Mondragon secured draining clear yellow urine Ext - trace pedal edema Neuro - more alert. Psych - depressed mood Skin - Warm and dry. Objective Data Vital Signs Vital Signs: Vital Signs - 24 hr 07/30/25 00:00 07/30/25 07:28 07/30/25 07:31 Temperature 98.0 F Pulse Rate 94 89 90 Respiratory Rate 18 20 Blood Pressure 98/56 L Pulse Oximetry 94 89 L Oxygen Delivery Nasal Cannula Oxygen Flow Rate 1 07/30/25 08:00 07/30/25 11:21 07/30/25 12:16 Temperature 98.7 F 97.8 F Pulse Rate 85 79 Respiratory Rate 18 24 H Blood Pressure 90/41 L 105/55 L Pulse Oximetry 92 89 L 92 Oxygen Delivery Nasal Cannula Oxygen Flow Rate 3 Intake/Output Intake/Output: Intake & Output 07/27/25 07/28/25 07/29/25 07/30/25 23:59 23:59 23:59 23:59 Intake Total 1900 2550 1480 340 Output Total 1125 1300 1175 700 Balance 775 1250 305 -360 Meds/Results Medications: Active Medications Generic Name Dose Route Start Last Admin Trade Name Freq PRN Reason Stop Dose Admin Albuterol/Ipratropium 3 ml 07/27/25 17:46 07/27/25 18:34 Ipratropium 0.5 Mg/Albuterol Sulfate 2.5 Mg Ampul.Neb 3 Ml INHALATION 3 ml Q6HRT PRN Administration Shortness Of Breath Ascorbic Acid 500 mg 07/29/25 09:00 07/30/25 10:25 Ascorbic Acid 500 Mg Tablet PO 500 mg DAILY MICAH Administration Cyanocobalamin 1,000 mcg 07/29/25 09:00 07/30/25 10:24 Cyanocobalamin Inj 1,000 Mcg/Ml Vial IM 08/01/25 08:59 1,000 mcg DAILY MICAH Administration Cyanocobalamin 1,000 mcg 07/29/25 09:00 07/30/25 10:25 Cyanocobalamin 1,000 Mcg Tablet PO 1,000 mcg QAM MICAH Administration Dextrose 12.5 gm 07/26/25 22:31 Dextrose 50% 25 Gm/50 Ml Syringe IV PUSH PRN PRN Hypoglycemia Protocol Diphenhydramine HCl 25 mg 07/27/25 17:10 Diphenhydramine Hcl Inj 50 Mg/Ml Vial IV PUSH Q6H PRN Itching Fluticasone/Umeclidinium/Vilanterol 1 puff 07/27/25 08:00 07/30/25 07:27 Fluticasone/Umeclidin/Vilanter 100-62.5-25 Mcg Ellipta INHALATION 1 puff DAILYRT MICAH Administration Glucose 15 gm 07/26/25 22:31 Glucose Oral Gel 15 Gm Of Glucse In 37.5 Gm Tube PO PRN PRN Hypoglycemia Protocol Hydromorphone HCl 1 mg 07/27/25 17:10 Hydromorphone Hcl Inj (*Crx) 1 Mg/Ml Syr IV PUSH Q2H PRN Breakthrough Pain Rated 7-10 or NPO Hydromorphone HCl 0.5 mg 07/27/25 17:10 Hydromorphone Hcl Inj (*Crx) 1 Mg/Ml Syr IV PUSH Q2H PRN Breakthrough Pain Rated 4-6 or NPO Dextrose 1,000 mls @ 100 mls/hr 07/26/25 22:31 Dextrose 5% 1,000 Ml IVPB PRN PRN Hypoglycemia Protocol Ibuprofen 800 mg in 200 mls @ 400 mls/hr 07/27/25 17:10 Caldolor 800 Mg/200 Ml IVPB Q6H PRN Breakthrough Pain Rated 1-3 or NPO Metronidazole 500 mg 07/29/25 22:00 07/30/25 14:16 Metronidazole 500 Mg Tablet PO 08/01/25 22:01 500 mg Q8HR MICAH Administration Montelukast Sodium 10 mg 07/28/25 21:00 07/29/25 21:09 Montelukast Sodium 10 Mg Tablet PO 10 mg HS MICAH Administration Naloxone HCl 0.1 mg 07/27/25 17:10 Naloxone Hcl 0.4 Mg/Ml Vial IV PUSH Q2M PRN Opiate Reversal Ondansetron HCl 4 mg 07/27/25 17:10 Ondansetron Inj 4 Mg/2 Ml Vial IV PUSH Q4H PRN Nausea And Vomiting Polyethylene Glycol 17 gm 07/28/25 19:20 07/30/25 10:25 Polyethylene Glycol 3350 17 Gm Powd.Pack PO 17 gm QAM MICAH Administration Rivaroxaban 10 mg 07/29/25 17:00 07/30/25 16:27 Rivaroxaban 10 Mg Tablet PO 10 mg 1700 MICAH Administration Trimethoprim/Sulfamethoxazole 1 tab 07/29/25 19:00 07/30/25 10:25 Sulfamethoxazole/Trimethoprim 800/160 Mg Ds Tablet PO 08/01/25 21:01 1 tab Q12HR MICAH Administration Vitamin D 25 mcg 07/29/25 09:00 07/30/25 10:24 Cholecalciferol (Vitamin D3) 25 Mcg (1,000 Units) Tablet PO 25 mcg DAILY MICAH Administration Radiology Results: ITS Impressions Chest X-Ray 07/26/25 15:14 Impression: 1: No acute cardiopulmonary disease. Abdomen/Pelvis CT 07/26/25 18:25 IMPRESSION: 1. Small focal ulceration with mild inflammatory change involving the posterior soft tissues just below the coccyx. No drainable fluid collection identified. 2: Moderately distended small bowel and colon with air-fluid levels, consistent with ileus. Head CT 07/27/25 08:07 IMPRESSION: 1. Age-related changes including mild to moderate diffuse volume loss and moderate scattered white matter hypoattenuation consistent with chronic small vessel ischemic disease. No acute intracranial process. Abdomen X-Ray 07/28/25 13:00 IMPRESSION: 1. Left lower lobe airspace disease, suspicious for pneumonia. 2: Small left pleural effusion. Labs Labs: Laboratory Results - last 24 hr 07/29/25 07/29/25 07/30/25 17:03 20:04 06:11 WBC 16.6 H RBC 3.77 L Hgb 10.8 L Hct 35.5 L MCV 94.2 MCH 28.6 MCHC 30.4 L RDW 14.4 Plt Count 358 MPV 9.9 Sodium 134 L Potassium 3.7 Chloride 107 Carbon Dioxide 28 Anion Gap -1 L BUN 9 Creatinine 0.50 L Estim Creat Clear Calc 123 Estimated GFR > 60 Glucose 102 POC Capillary Glucose 142 H 147 H Calcium 7.6 L Magnesium 1.9 07/30/25 07/30/25 07:44 12:24 WBC RBC Hgb Hct MCV MCH MCHC RDW Plt Count MPV Sodium Potassium Chloride Carbon Dioxide Anion Gap BUN Creatinine Estim Creat Clear Calc Estimated GFR Glucose POC Capillary Glucose 103 102 Calcium Magnesium
[2025-07-30] MEDS: MONTELUKAST SODIUM 10 MG TABLET PO (21:34)
[2025-07-30] MEDS: DEXTROSE 5%/0.9% SOD CHL 1,000 ML 70 ML IV CONT (22:15)
[2025-07-31 05:15] VITALS: BP 92/46; PULSE 77; RESP 18; TEMP 36.4; O2SAT 93
[2025-07-31 05:52] LABS: Hematocrit 35.6 % (42.0-52.0); Hemoglobin 10.8 g/dL (14.0-18.0); Immature Granulocyte Percent A 4.1 % (0-0.5); Lymphocytes Absolute Auto 3.28 K/mm3 (0.9-3.2); Mean Corpuscular HGB Conc 30.3 g/dl (32-36); Mean Corpuscular Hemoglobin 29.2 pg (26-34); Mean Corpuscular Volume 96.2 fl (80-100); Nucleated Red Blood Cells Absolute Auto 0.000 K/mm3 (0.0-0.012); Nucleated Red Blood Cells Perc 0.0 % (0.0-0.2); Platelet Count Result 351 k/mm3 (150-375); Red Blood Count 3.70 M/mm3 (4.6-6.20); White Blood Count 15.5 K/mm3 (4.5-10.0)
[2025-07-31 06:12] LABS: Anion Gap 0 mmol/L (4-12); Blood Urea Nitrogen 9 mg/dL (9-20); Calcium 7.3 mg/dL (8.4-10.2); Carbon Dioxide 28 mmol/L (22-30); Chloride 107 mmol/L (98-107); Estimated CRCL calculation 116 ml/min; Estimated Glomerular Filt Rate > 60; Glucose 112 mg/dL (65-110); Magnesium 1.9 mg/dL (1.6-2.3); Potassium 3.8 mmol/L (3.4-5.0); Sodium 135 mmol/L (137-145)
[2025-07-31 08:00] VITALS: O2SAT 95
[2025-07-31] MEDS: CYANOCOBALAMIN INJ 1,000 MCG/ML VIAL 1000 MCG IM (09:04)
[2025-07-31] MEDS: SULFAMETHOXAZOLE/TRIMETHOPRIM 800/160 MG DS TABLET 1 TAB PO ×2 (09:05→21:42)
[2025-07-31] MEDS: CYANOCOBALAMIN 1,000 MCG TABLET 1000 MCG PO (09:06)
[2025-07-31] MEDS: CHOLECALCIFEROL (VITAMIN D3) 25 MCG (1,000 UNITS) TABLET PO (09:06)
[2025-07-31] MEDS: ASCORBIC ACID 500 MG TABLET PO (09:06)
[2025-07-31] MEDS: DEXTROSE 5%/0.9% SOD CHL 1,000 ML 70 ML IV CONT (11:38)
--- NOTE | 2025-07-31 12:35 | PC.NURSE ---
Patient is no longer NPO therefore patient will not be Q6 accuchecks.
[2025-07-31 15:47] VITALS: BP 101/46; PULSE 86; RESP 18; TEMP 36.7; O2SAT 96
--- NOTE | 2025-07-31 16:08 | PM.IMPN ---
Progress Note: A&P Assessment and Plan (1) Sepsis: Code(s): A41.9 - Sepsis, unspecified organism Status: Acute Assessment and Plan: Sepsis - possibly related to either UTI and/or decubitus ulcer to the sacrum and left heel, right lateral foot with some purulence. Blood pressure was soft and patient given 30 cc per kg bolus. CXR was clear. Influenza, RSV and COVID PCR negative. CT abdomen pelvis shows decubitus ulcer without abscess, likely ileus as well. Lung bases unremarkable. Lactic acid normal. White count 17 K. UA consistent with UTI. He was started on cefepime vancomycin and metronidazole. General surgery consulted and patient underwent sharp excisional debridement stage IV sacral decubitus ulcer including skin, subcutaneous fat, muscle, and fascia/tendon measuring 15 cm x 8 cm on 07/27/25. BCx NGTD UCx pending Abx changed to Bactrim and Flagyl. BP still soft so will add Delgado hose and midodrine WBC up to 16K and about the same on repeat. Continue wound care. Appreciate GenSurg input. Monitor WBC. (2) Acute respiratory distress: Code(s): R06.03 - Acute respiratory distress Status: Acute Assessment and Plan: Patient was 88% on room air. Chest x-ray was clear. Lung bases unremarkable by CT. Viral PCR was negative. He is on Xarelto at home making PE less likely. He remains on supplemental O2. Repeat CXR showing left basilar airspace disease, small left effusion and possible pulmonary edema. Wean oxygen as tolerated. BP soft so unable to give Lasix. Add Delgado hose and midodrine. (3) Altered mental status: Code(s): R41.82 - Altered mental status, unspecified Status: Acute Assessment and Plan: AMS - Head CT showing age-related changes including mild-moderate diffuse volume loss and moderate scattered white matter hypoattenuation consistent with chronic small-vessel ischemic disease but no acute findings. Ammonia level negative. TSH normal. UDS negative. B12 level low at 231. Folate normal. Vit D <12.8. Likely has metabolic encephalopathy due to UTI, sacral infection, B12 and VitD deficiency and less likely MS flare. Symptoms improving. Fall precautions. Replacing B12 and VitD (4) Ileus: Code(s): K56.7 - Ileus, unspecified Status: Acute Assessment and Plan: Ileus -CT scan showed probable ileus related to sepsis. Serial exams and Abdominal x-rays showing ileus has resolved. Diet resumed and tolerating this well. Miralax added. No BMs documented yet. Continue Miralax. Add suppositories. Follow (5) Decubitus ulcer, infected: Code(s): L89.90 - Pressure ulcer of unspecified site, unspecified stage; L08.9 - Local infection of the skin and subcutaneous tissue, unspecified Status: Acute Assessment and Plan: Related to the fact that he is bed-bound from his MS. Frequent turning As above. (6) Multiple sclerosis: Code(s): G35 - Multiple sclerosis Status: Chronic Assessment and Plan: MS -patient on interferon prior to admission. Mental status improving. Neurology following Holding Interferon. Monitor mental status. (7) COPD (chronic obstructive pulmonary disease): Code(s): J44.9 - Chronic obstructive pulmonary disease, unspecified Status: Chronic Assessment and Plan: No wheezing appreciated but he remains on oxygen. Continue Trelegy. Albuterol p.r.n.. (8) UTI (urinary tract infection): Code(s): N39.0 - Urinary tract infection, site not specified Status: Acute Assessment and Plan: Patient with a chronic indwelling urinary catheter. Patient most likely has urine retention from his MS. Patient with complicated UTI related to his urinary catheter. Follow cultures. Treatment as above. Plan Code status - Full code. DVT prophylaxis - Xarelto Subjective Date/time seen: 07/31/25 16:08 Interval history: 69yo male bed-bound [facility] patient from [place] who presents with altered mental status. Slept okay. Denies SOB. Occasional cough. no Cp or palpations. +nausea. no BM Exam Narrative: AF 98.1 101/46 86 18 96% 3L Gen - NARD Chest - left base crackles. CV - RRR S1/S2 Abd -soft. NT/ND, +BS - Mondragon secured draining clear yellow urine Ext - trace pedal edema Neuro - alert, oriented x4. 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 Psych - depressed mood Skin - Warm and dry. left palm scaly skin. Objective Data Vital Signs Vital Signs: Vital Signs - 24 hr 07/30/25 17:44 07/30/25 20:35 07/31/25 05:15 Temperature 98.0 F 97.2 F L 97.5 F L Pulse Rate 95 87 77 Respiratory Rate 16 20 18 Blood Pressure 92/48 L 119/50 L 92/46 L Pulse Oximetry 96 91 93 Oxygen Delivery Oxygen Flow Rate 07/31/25 10:15 07/31/25 11:02 07/31/25 15:47 Temperature 98.1 F Pulse Rate 86 Respiratory Rate 18 Blood Pressure 101/46 L Pulse Oximetry 96 Oxygen Delivery Nasal Cannula Nasal Cannula Oxygen Flow Rate 3 3 Intake/Output Intake/Output: Intake & Output 07/28/25 07/29/25 07/30/25 07/31/25 23:59 23:59 23:59 23:59 Intake Total 2550 9554 816 8003.8 Output Total 1300 1175 1100 450 Balance 1250 305 -400 956.8 Meds/Results Medications: Active Medications Generic Name Dose Route Start Last Admin Trade Name Freq PRN Reason Stop Dose Admin Albuterol/Ipratropium 3 ml 07/27/25 17:46 07/27/25 18:34 Ipratropium 0.5 Mg/Albuterol Sulfate 2.5 Mg Ampul.Neb 3 Ml INHALATION 3 ml Q6HRT PRN Administration Shortness Of Breath Ascorbic Acid 500 mg 07/29/25 09:00 07/31/25 09:06 Ascorbic Acid 500 Mg Tablet PO 500 mg DAILY MICAH Administration Cyanocobalamin 1,000 mcg 07/29/25 09:00 07/31/25 09:04 Cyanocobalamin Inj 1,000 Mcg/Ml Vial IM 08/01/25 08:59 1,000 mcg DAILY MICAH Administration Cyanocobalamin 1,000 mcg 07/29/25 09:00 07/31/25 09:06 Cyanocobalamin 1,000 Mcg Tablet PO 1,000 mcg QAM MICAH Administration Dextrose 12.5 gm 07/26/25 22:31 Dextrose 50% 25 Gm/50 Ml Syringe IV PUSH PRN PRN Hypoglycemia Protocol Diphenhydramine HCl 25 mg 07/27/25 17:10 Diphenhydramine Hcl Inj 50 Mg/Ml Vial IV PUSH Q6H PRN Itching Fluticasone/Umeclidinium/Vilanterol 1 puff 07/27/25 08:00 07/31/25 08:19 Fluticasone/Umeclidin/Vilanter 100-62.5-25 Mcg Ellipta INHALATION Not Given DAILYRT MICAH Glucose 15 gm 07/26/25 22:31 Glucose Oral Gel 15 Gm Of Glucse In 37.5 Gm Tube PO PRN PRN Hypoglycemia Protocol Hydromorphone HCl 1 mg 07/27/25 17:10 Hydromorphone Hcl Inj (*Crx) 1 Mg/Ml Syr IV PUSH Q2H PRN Breakthrough Pain Rated 7-10 or NPO Hydromorphone HCl 0.5 mg 07/27/25 17:10 Hydromorphone Hcl Inj (*Crx) 1 Mg/Ml Syr IV PUSH Q2H PRN Breakthrough Pain Rated 4-6 or NPO Dextrose 1,000 mls @ 100 mls/hr 07/26/25 22:31 Dextrose 5% 1,000 Ml IVPB PRN PRN Hypoglycemia Protocol Ibuprofen 800 mg in 200 mls @ 400 mls/hr 07/27/25 17:10 Caldolor 800 Mg/200 Ml IVPB Q6H PRN Breakthrough Pain Rated 1-3 or NPO Dextrose/Sodium Chloride 1,000 mls @ 70 mls/hr 07/30/25 18:35 07/31/25 11:38 Dextrose 5% Sodium Chloride 0.9% IV CONT 70 mls/hr .[id number] MICAH Administration Metronidazole 500 mg 07/29/25 22:00 07/31/25 15:52 Metronidazole 500 Mg Tablet PO 08/01/25 22:01 500 mg Q8HR MICAH Administration Montelukast Sodium 10 mg 07/28/25 21:00 07/30/25 21:34 Montelukast Sodium 10 Mg Tablet PO 10 mg HS MICAH Administration Naloxone HCl 0.1 mg 07/27/25 17:10 Naloxone Hcl 0.4 Mg/Ml Vial IV PUSH Q2M PRN Opiate Reversal Ondansetron HCl 4 mg 07/27/25 17:10 Ondansetron Inj 4 Mg/2 Ml Vial IV PUSH Q4H PRN Nausea And Vomiting Polyethylene Glycol 17 gm 07/30/25 17:05 07/31/25 09:06 Polyethylene Glycol 3350 17 Gm Powd.Pack PO 17 gm BID MICAH Administration Rivaroxaban 10 mg 07/29/25 17:00 07/30/25 16:27 Rivaroxaban 10 Mg Tablet PO 10 mg 1700 MICAH Administration Trimethoprim/Sulfamethoxazole 1 tab 07/29/25 19:00 07/31/25 09:05 Sulfamethoxazole/Trimethoprim 800/160 Mg Ds Tablet PO 08/01/25 21:01 1 tab Q12HR MICAH Administration Vitamin D 25 mcg 07/29/25 09:00 07/31/25 09:06 Cholecalciferol (Vitamin D3) 25 Mcg (1,000 Units) Tablet PO 25 mcg DAILY MICAH Administration Radiology Results: ITS Impressions Abdomen/Pelvis CT 07/26/25 18:25 IMPRESSION: 1. Small focal ulceration with mild inflammatory change involving the posterior soft tissues just below the coccyx. No drainable fluid collection identified. 2: Moderately distended small bowel and colon with air-fluid levels, consistent with ileus. Head CT 07/27/25 08:07 IMPRESSION: 1. Age-related changes including mild to moderate diffuse volume loss and moderate scattered white matter hypoattenuation consistent with chronic small vessel ischemic disease. No acute intracranial process. Abdomen X-Ray 07/28/25 13:00 IMPRESSION: 1. Left lower lobe airspace disease, suspicious for pneumonia. 2: Small left pleural effusion. Chest X-Ray 07/31/25 13:21 IMPRESSION: 1. Left basilar atelectasis and/or airspace disease. 2. Small left effusion not excluded. 3. Suspect developing mild interstitial pulmonary edema. Labs Labs: Laboratory Results - last 24 hr 07/30/25 07/31/25 07/31/25 17:02 05:27 11:52 WBC 15.5 H RBC 3.70 L Hgb 10.8 L Hct 35.6 L MCV 96.2 MCH 29.2 MCHC 30.3 L RDW 14.6 H Plt Count 351 MPV 9.8 Immature Gran % (Auto) 4.1 H Neut % (Auto) 61.7 Lymph % (Auto) 21.2 [place] % (Auto) 8.1 Eos % (Auto) 4.2 Baso % (Auto) 0.7 Lymph # (Auto) 3.28 H [place] # (Auto) 1.3 H Eos # (Auto) 0.7 H Baso # (Auto) 0.1 Abs Immat Gran (auto) 0.64 H Absolute Neuts (auto) 9.6 H Absolute Nucleated RBC 0.000 Nucleated RBC % 0.0 Sodium 135 L Potassium 3.8 Chloride 107 Carbon Dioxide 28 Anion Gap 0 L BUN 9 Creatinine 0.53 L Estim Creat Clear Calc 116 Estimated GFR > 60 Glucose 112 H POC Capillary Glucose 146 H 139 H Calcium 7.3 L Magnesium 1.9
[2025-07-31] MEDS: MIDODRINE HCL 2.5 MG TABLET PO (18:47)
[2025-07-31] MEDS: RIVAROXABAN 10 MG TABLET PO (18:51)
[2025-07-31] MEDS: BISACODYL 10 MG SUPPOSITORY RECTAL (18:51)
[2025-07-31] MEDS: EUCERIN CREAM 120 GM JAR 1 APPLIC TOPICAL (18:54)
[2025-07-31] MEDS: MONTELUKAST SODIUM 10 MG TABLET PO (21:42)
[2025-07-31 22:05] VITALS: BP 100/58; PULSE 85; RESP 18; TEMP 36.7; O2SAT 98
[2025-08-01] MEDS: DEXTROSE 5%/0.9% SOD CHL 1,000 ML 70 ML IV CONT ×2 (02:03→16:46)
[2025-08-01] MEDS: ONDANSETRON INJ 4 MG/2 ML VIAL IV PUSH (05:58)
[2025-08-01 06:00] VITALS: BP 103/50; PULSE 78; RESP 16; TEMP 36.5; O2SAT 94
[2025-08-01 06:07] LABS: Hematocrit 37.1 % (42.0-52.0); Hemoglobin 11.3 g/dL (14.0-18.0); Immature Granulocyte Percent A 3.8 % (0-0.5); Lymphocytes Absolute Auto 3.21 K/mm3 (0.9-3.2); Mean Corpuscular HGB Conc 30.5 g/dl (32-36); Mean Corpuscular Hemoglobin 28.6 pg (26-34); Mean Corpuscular Volume 93.9 fl (80-100); Nucleated Red Blood Cells Absolute Auto 0.000 K/mm3 (0.0-0.012); Nucleated Red Blood Cells Perc 0.0 % (0.0-0.2); Platelet Count Result 385 k/mm3 (150-375); Red Blood Count 3.95 M/mm3 (4.6-6.20); White Blood Count 18.2 K/mm3 (4.5-10.0)
[2025-08-01 06:31] LABS: Alanine Aminotransferase 39 U/L (6-50); Albumin Level 2.2 g/dL (3.5-5.1); Alkaline Phosphatase 135 U/L (38-126); Anion Gap 1 mmol/L (4-12); Aspartate Amino Transferase 43 U/L (17-59); Bilirubin,Total 0.3 mg/dL (0.2-1.3); Blood Urea Nitrogen 9 mg/dL (9-20); Calcium 7.7 mg/dL (8.4-10.2); Carbon Dioxide 27 mmol/L (22-30); Chloride 106 mmol/L (98-107); Estimated CRCL calculation 120 ml/min; Estimated Glomerular Filt Rate > 60; Glucose 119 mg/dL (65-110); Potassium 3.9 mmol/L (3.4-5.0); Sodium 134 mmol/L (137-145); Total Protein 5.0 g/dL (6.3-8.2)
[2025-08-01 08:00] VITALS: O2SAT 92; O2SAT 95
[2025-08-01] MEDS: CYANOCOBALAMIN 1,000 MCG TABLET 1000 MCG PO (10:11)
[2025-08-01] MEDS: ASCORBIC ACID 500 MG TABLET PO (10:11)
[2025-08-01] MEDS: CHOLECALCIFEROL (VITAMIN D3) 25 MCG (1,000 UNITS) TABLET PO (10:11)
[2025-08-01] MEDS: MIDODRINE HCL 2.5 MG TABLET PO ×2 (10:12→14:13)
[2025-08-01] MEDS: EUCERIN CREAM 120 GM JAR 1 APPLIC TOPICAL (10:12)
[2025-08-01] MEDS: SULFAMETHOXAZOLE/TRIMETHOPRIM 800/160 MG DS TABLET 1 TAB PO (10:12)
[2025-08-01] MEDS: BISACODYL 10 MG SUPPOSITORY RECTAL (10:43)
--- NOTE | 2025-08-01 12:15 | P.PNGS_ITS ---
Progress Note: A&P Assessment and Plan (1) Decubitus ulcer, infected: Code(s): L89.90 - Pressure ulcer of unspecified site, unspecified stage; L08.9 - Local infection of the skin and subcutaneous tissue, unspecified Status: Acute Assessment and Plan: * Pod 5 status post strep excisional debridement stage IV sacral decubitus ulcer including skin, subcutaneous fat, muscle, and fascia/tendon measuring 15 cm x 8 cm. * Wound packing changed with myself and nurse at bedside today. Appears stable this morning with no saturation through the dressing. No active bleeding. No new signs of infection. * Continue packing the sacral wound with Dakin soaked 4 in Kerlix. For left hip wound, apply Betadine to the area and cover with a Mepilex dressing. For right lateral foot ulcer, apply silver gel and cover with Mepilex border dressing. Cover heels with Mepilex border dressing. * Continue oral Flagyl and IV Levaquin. WBC remains elevated. * Still no BM. Continue to stimulate bowels. (2) Sepsis: Code(s): A41.9 - Sepsis, unspecified organism Status: Acute Assessment and Plan: * Source likely related to decubitus ulcer vs UTI vs combination. Continue broad-spectrum IV antibiotics * Blood cultures pending -preliminarily no growth (3) UTI (urinary tract infection): Code(s): N39.0 - Urinary tract infection, site not specified Status: Acute Assessment and Plan: * Continue IV antibiotics. Urine culture pending (4) Multiple sclerosis: Code(s): G35 - Multiple sclerosis Status: Chronic (5) COPD (chronic obstructive pulmonary disease): Code(s): J44.9 - Chronic obstructive pulmonary disease, unspecified Status: Chronic Assessment and Plan: * Reportedly diagnosed with COPD about a month ago and quit smoking at that time (6) Right foot ulcer: Code(s): L97.519 - Non-pressure chronic ulcer of other part of right foot with unspecified severity Status: Acute Assessment and Plan: * Unstageable right lateral foot ulcer appears stable and does not appear to be infected. Continue to elevate his heels off the bed as the boots are rubbing on this wound. Continue local wound care to the right foot ulcer with silver gel and Mepilex border. Plan Discussed patient's case and plan of care with Dr. Wikiera. Subjective Subjective Date/Time Seen: 08/01/25 12:15 Post Op day: 5 Patient reports: no new complaints, tolerating a regular diet and no bowel movement Interval history: No acute events overnight. WBC remains elevated at 18.2. Still no BM. Sacral wound appears stable. Exam Const: General: comfortable and no acute distress Resp: Effort & Inspection: normal respiratory effort Cardio: Rate: regular rate Skin: Other: sacral wound appears stable. Healing well. No new areas of fluctuance or purulence Objective Data Vital Signs Vital Signs: Vital Signs - 24 hr 07/31/25 15:47 07/31/25 22:05 08/01/25 06:00 Temperature 98.1 F 98.1 F 97.7 F Pulse Rate 86 85 78 Respiratory Rate 18 18 16 Blood Pressure 101/46 L 100/58 L 103/50 L Pulse Oximetry 96 98 94 Oxygen Delivery Oxygen Flow Rate 08/01/25 08:00 08/01/25 08:00 Temperature Pulse Rate Respiratory Rate Blood Pressure Pulse Oximetry 92 95 Oxygen Delivery Nasal Cannula Nasal Cannula Oxygen Flow Rate 1 3 Intake/Output Intake/Output: Intake & Output 07/29/25 07/30/25 07/31/25 08/01/25 23:59 23:59 23:59 23:59 Intake Total 3571 790 4378.8 1480 Output Total 1175 1100 1250 1200 Balance 305 -400 630.8 280 Meds/Results Medications: Active Medications Generic Name Dose Route Start Last Admin Trade Name Freq PRN Reason Stop Dose Admin Albuterol/Ipratropium 3 ml 07/27/25 17:46 07/27/25 18:34 Ipratropium 0.5 Mg/Albuterol Sulfate 2.5 Mg Ampul.Neb 3 Ml INHALATION 3 ml Q6HRT PRN Administration Shortness Of Breath Ascorbic Acid 500 mg 07/29/25 09:00 08/01/25 10:11 Ascorbic Acid 500 Mg Tablet PO 500 mg DAILY MICAH Administration Bisacodyl 10 mg 08/01/25 09:00 08/01/25 10:43 Bisacodyl 10 Mg Suppository RECTAL 08/02/25 09:01 10 mg QAM MICAH Administration Cyanocobalamin 1,000 mcg 07/29/25 09:00 08/01/25 10:11 Cyanocobalamin 1,000 Mcg Tablet PO 1,000 mcg QAM MICAH Administration Dextrose 12.5 gm 07/26/25 22:31 Dextrose 50% 25 Gm/50 Ml Syringe IV PUSH PRN PRN Hypoglycemia Protocol Diphenhydramine HCl 25 mg 07/27/25 17:10 Diphenhydramine Hcl Inj 50 Mg/Ml Vial IV PUSH Q6H PRN Itching Fluticasone/Umeclidinium/Vilanterol 1 puff 07/27/25 08:00 08/01/25 07:59 Fluticasone/Umeclidin/Vilanter 100-62.5-25 Mcg Ellipta INHALATION Not Given DAILYRT MICAH Glucose 15 gm 07/26/25 22:31 Glucose Oral Gel 15 Gm Of Glucse In 37.5 Gm Tube PO PRN PRN Hypoglycemia Protocol Hydromorphone HCl 1 mg 07/27/25 17:10 Hydromorphone Hcl Inj (*Crx) 1 Mg/Ml Syr IV PUSH Q2H PRN Breakthrough Pain Rated 7-10 or NPO Hydromorphone HCl 0.5 mg 07/27/25 17:10 Hydromorphone Hcl Inj (*Crx) 1 Mg/Ml Syr IV PUSH Q2H PRN Breakthrough Pain Rated 4-6 or NPO Dextrose 1,000 mls @ 100 mls/hr 07/26/25 22:31 Dextrose 5% 1,000 Ml IVPB PRN PRN Hypoglycemia Protocol Ibuprofen 800 mg in 200 mls @ 400 mls/hr 07/27/25 17:10 Caldolor 800 Mg/200 Ml IVPB Q6H PRN Breakthrough Pain Rated 1-3 or NPO Dextrose/Sodium Chloride 1,000 mls @ 70 mls/hr 07/30/25 18:35 08/01/25 02:03 Dextrose 5% Sodium Chloride 0.9% IV CONT 70 mls/hr .[id number] MICAH Administration Levofloxacin/Dextrose 750 mg in 150 mls @ 100 mls/hr 08/01/25 12:30 Levaquin 750 Mg/D5w 150 Ml IVPB DAILY MICAH Linezolid 600 mg 08/01/25 12:00 Linezolid 600 Mg Tablet PO Q12HR MICAH Metronidazole 500 mg 07/29/25 22:00 08/01/25 05:48 Metronidazole 500 Mg Tablet PO 500 mg Q8HR MICAH Administration Midodrine 2.5 mg 07/31/25 17:50 08/01/25 10:12 Midodrine Hcl 2.5 Mg Tablet PO 2.5 mg TID MICAH Administration Montelukast Sodium 10 mg 07/28/25 21:00 07/31/25 21:42 Montelukast Sodium 10 Mg Tablet PO 10 mg HS MICAH Administration Multi-Ingred Cream/Lotion/Oil/Oint 1 applic 07/31/25 17:45 08/01/25 10:12 Eucerin Cream 120 Gm Jar TOPICAL 1 applic DAILY MICAH Administration Naloxone HCl 0.1 mg 07/27/25 17:10 Naloxone Hcl 0.4 Mg/Ml Vial IV PUSH Q2M PRN Opiate Reversal Ondansetron HCl 4 mg 07/27/25 17:10 08/01/25 05:58 Ondansetron Inj 4 Mg/2 Ml Vial IV PUSH 4 mg Q4H PRN Administration Nausea And Vomiting Polyethylene Glycol 17 gm 07/30/25 17:05 08/01/25 10:11 Polyethylene Glycol 3350 17 Gm Powd.Pack PO 17 gm BID MICAH Administration Rivaroxaban 10 mg 07/29/25 17:00 07/31/25 18:51 Rivaroxaban 10 Mg Tablet PO 10 mg 1700 MICAH Administration Vitamin D 25 mcg 07/29/25 09:00 08/01/25 10:11 Cholecalciferol (Vitamin D3) 25 Mcg (1,000 Units) Tablet PO 25 mcg DAILY MICAH Administration Radiology Results: ITS Impressions Abdomen/Pelvis CT 07/26/25 18:25 IMPRESSION: 1. Small focal ulceration with mild inflammatory change involving the posterior soft tissues just below the coccyx. No drainable fluid collection identified. 2: Moderately distended small bowel and colon with air-fluid levels, consistent with ileus. Head CT 07/27/25 08:07 IMPRESSION: 1. Age-related changes including mild to moderate diffuse volume loss and moderate scattered white matter hypoattenuation consistent with chronic small vessel ischemic disease. No acute intracranial process. Abdomen X-Ray 07/28/25 13:00 IMPRESSION: 1. Left lower lobe airspace disease, suspicious for pneumonia. 2: Small left pleural effusion. Chest X-Ray 07/31/25 13:21 IMPRESSION: 1. Left basilar atelectasis and/or airspace disease. 2. Small left effusion not excluded. 3. Suspect developing mild interstitial pulmonary edema. Labs Labs: Laboratory Results - last 24 hr 08/01/25 05:37 WBC 18.2 H RBC 3.95 L Hgb 11.3 L Hct 37.1 L MCV 93.9 MCH 28.6 MCHC 30.5 L RDW 14.5 Plt Count 385 H MPV 9.8 Immature Gran % (Auto) 3.8 H Neut % (Auto) 64.4 Lymph % (Auto) 17.7 L [place] % (Auto) 7.5 Eos % (Auto) 6.0 H Baso % (Auto) 0.6 Lymph # (Auto) 3.21 H [place] # (Auto) 1.4 H Eos # (Auto) 1.1 H Baso # (Auto) 0.1 Abs Immat Gran (auto) 0.69 H Absolute Neuts (auto) 11.7 H Absolute Nucleated RBC 0.000 Nucleated RBC % 0.0 Sodium 134 L Potassium 3.9 Chloride 106 Carbon Dioxide 27 Anion Gap 1 L BUN 9 Creatinine 0.51 L Estim Creat Clear Calc 120 Estimated GFR > 60 Glucose 119 H Calcium 7.7 L Phosphorus 2.5 Total Bilirubin 0.3 AST 43 ALT 39 Alkaline Phosphatase 135 H Total Protein 5.0 L Albumin 2.2 L
--- NOTE | 2025-08-01 12:56 | PCNFU ---
Nutrition Follow-Up Complete: Increased protein energy needs related to pressure injuries as evidenced by wound report Goal:Diet advancement Intakes adequate to support wound healing Pt not meeting adequate intake, continue with same goal Pt current nutrition is Regular, Ensure BID, LAKESHA BID. Nutrition recommendation: continue with current plan of care, encourage po intake Last recorded weight is 72.5 kg. Bowel Motility: No BM recorded at this time Labs Reviewed: Hgb:11.3, HCT:37.1, Alb:2.2, Na:134, Cr:0.51, Glu:119 Meds Noted: miralax, lovenox, VIt C Skin: multiple pressure injuries Additional Notes: Pt continues on a regular diet, intake 0-50%. Supplements in place, encourage intake Monitoring diet orders, weights, labs, GI function, wounds, plan of care Follow up in 5 days
[2025-08-01 13:16] VITALS: BMI 11.0
[2025-08-01 14:00] VITALS: BP 92/61; PULSE 82; RESP 18; TEMP 36.6; O2SAT 97
[2025-08-01] MEDS: LINEZOLID 600 MG TABLET PO ×2 (14:13→21:56)
[2025-08-01] MEDS: levoFLOXacin 750 MG/D5W 150 ML 750 MG/150 ML BAG 100 MG IVPB (14:14)
--- NOTE | 2025-08-01 14:32 | P.PNIM_ITS ---
Progress Note: A&P Assessment and Plan (1) Sepsis: Code(s): A41.9 - Sepsis, unspecified organism Status: Acute Assessment and Plan: Sepsis - possibly related to either UTI and/or decubitus ulcer to the sacrum and left heel, right lateral foot with some purulence. Blood pressure was soft and patient given 30 cc per kg bolus. CXR was clear. Influenza, RSV and COVID PCR negative. CT abdomen pelvis shows decubitus ulcer without abscess, likely ileus as well. Lung bases unremarkable. Lactic acid normal. White count 17 K. UA consistent with UTI. He was started on cefepime vancomycin and metronidazole. General surgery consulted and patient underwent sharp excisional debridement stage IV sacral decubitus ulcer including skin, subcutaneous fat, muscle, and fascia/tendon measuring 15 cm x 8 cm on 07/27/25. BCx NGTD UCx pending BP still soft so Delgado hose and midodrine added. Abx changed to Bactrim and Flagyl but white count is now 18K. Eosinophil 1100cells - could be related to abx since he did have a rash early in his course that has resolved. Continue wound care. Appreciate GenSurg input. Antibiotics adjusted to linezolid and Levaquin after discussing with Pharm D ID since concern missing pseudomonas coverage. Consider ESBL coverage if WBC continues to climb. Advance midodrine. (2) Acute respiratory distress: Code(s): R06.03 - Acute respiratory distress Status: Acute Assessment and Plan: Patient was 88% on room air. Chest x-ray was clear. Lung bases unremarkable by CT. Viral PCR was negative. He is on Xarelto at home making PE less likely. He remains on supplemental O2. Repeat CXR showing left basilar airspace disease, small left effusion and possible pulmonary edema. BP soft so unable to give Lasix. Continue Delgado hose. Continue midodrine. Wean oxygen as tolerated. (3) Altered mental status: Code(s): R41.82 - Altered mental status, unspecified Status: Acute Assessment and Plan: AMS - Head CT showing age-related changes including mild-moderate diffuse volume loss and moderate scattered white matter hypoattenuation consistent with chronic small-vessel ischemic disease but no acute findings. Ammonia level negative. TSH normal. UDS negative. B12 level low at 231. Folate normal. Vit D <12.8. Likely has metabolic encephalopathy due to UTI, sacral infection, B12 and VitD deficiency and less likely MS flare. Symptoms improving. Fall precautions. Replacing B12 and VitD (4) Ileus: Code(s): K56.7 - Ileus, unspecified Status: Acute Assessment and Plan: Ileus -CT scan showed probable ileus related to sepsis. Serial exams and Abdominal x-rays showing ileus has resolved. Diet resumed and tolerating this well. Miralax added and advanced. Dulcolax suppositories added. Still no BMs documented yet. Change to lactulose. (5) Decubitus ulcer, infected: Code(s): L89.90 - Pressure ulcer of unspecified site, unspecified stage; L08.9 - Local infection of the skin and subcutaneous tissue, unspecified Status: Acute Assessment and Plan: Related to the fact that he is bed-bound from his MS. Frequent turning As above. (6) Multiple sclerosis: Code(s): G35 - Multiple sclerosis Status: Chronic Assessment and Plan: MS -patient on interferon prior to admission. Mental status improving. Neurology following Resume Interferon when infection better controlled. Monitor mental status. (7) COPD (chronic obstructive pulmonary disease): Code(s): J44.9 - Chronic obstructive pulmonary disease, unspecified Status: Chronic Assessment and Plan: No wheezing appreciated but he remains on oxygen. Continue Trelegy. Albuterol p.r.n.. (8) UTI (urinary tract infection): Code(s): N39.0 - Urinary tract infection, site not specified Status: Acute Assessment and Plan: Patient with a chronic indwelling urinary catheter. Patient most likely has urine retention from his MS. Patient with complicated UTI related to his urinary catheter. Follow cultures. Treatment as above. Plan Code status - Full code. DVT prophylaxis - Xarelto Subjective Date/time seen: 08/01/25 14:32 Interval history: 69yo male bed-bound [facility] patient from [place] who presents with altered mental status. Slept okay. No chest pain. No shortness of breath or cough. He had a bout of emesis yesterday but no nausea or vomiting today. No bowel movements. Decreased appetite. Exam Narrative: AF 97.9 92/61 82 18 97% 3L Gen - NARD Chest -clear to auscultation bilaterally CV - RRR S1/S2 Abd -soft. NT/ND, +BS - Mondragon secured draining clear yellow urine Ext - trace pedal edema Neuro - alert and appropriate Psych - depressed mood Skin - Warm and dry. Right lateral foot, bilateral heel, and right hip and sacral area dressings are clean, dry and intact. Objective Data Vital Signs Vital Signs: Vital Signs - 24 hr 07/31/25 15:47 07/31/25 22:05 08/01/25 06:00 Temperature 98.1 F 98.1 F 97.7 F Pulse Rate 86 85 78 Respiratory Rate 18 18 16 Blood Pressure 101/46 L 100/58 L 103/50 L Pulse Oximetry 96 98 94 Oxygen Delivery Oxygen Flow Rate 08/01/25 08:00 08/01/25 08:00 08/01/25 14:00 Temperature 97.9 F Pulse Rate 82 Respiratory Rate 18 Blood Pressure 92/61 L Pulse Oximetry 92 95 97 Oxygen Delivery Nasal Cannula Nasal Cannula Oxygen Flow Rate 1 3 Intake/Output Intake/Output: Intake & Output 07/29/25 07/30/25 07/31/25 08/01/25 23:59 23:59 23:59 23:59 Intake Total 5075 823 4044.8 1480 Output Total 1175 1100 1250 1700 Balance 305 -400 630.8 -220 Meds/Results Medications: Active Medications Generic Name Dose Route Start Last Admin Trade Name Freq PRN Reason Stop Dose Admin Albuterol/Ipratropium 3 ml 07/27/25 17:46 07/27/25 18:34 Ipratropium 0.5 Mg/Albuterol Sulfate 2.5 Mg Ampul.Neb 3 Ml INHALATION 3 ml Q6HRT PRN Administration Shortness Of Breath Ascorbic Acid 500 mg 07/29/25 09:00 08/01/25 10:11 Ascorbic Acid 500 Mg Tablet PO 500 mg DAILY MICAH Administration Bisacodyl 10 mg 08/01/25 09:00 08/01/25 10:43 Bisacodyl 10 Mg Suppository RECTAL 08/02/25 09:01 10 mg QAM MICAH Administration Cyanocobalamin 1,000 mcg 07/29/25 09:00 08/01/25 10:11 Cyanocobalamin 1,000 Mcg Tablet PO 1,000 mcg QAM MICAH Administration Dextrose 12.5 gm 07/26/25 22:31 Dextrose 50% 25 Gm/50 Ml Syringe IV PUSH PRN PRN Hypoglycemia Protocol Diphenhydramine HCl 25 mg 07/27/25 17:10 Diphenhydramine Hcl Inj 50 Mg/Ml Vial IV PUSH Q6H PRN Itching Fluticasone/Umeclidinium/Vilanterol 1 puff 07/27/25 08:00 08/01/25 07:59 Fluticasone/Umeclidin/Vilanter 100-62.5-25 Mcg Ellipta INHALATION Not Given DAILYRT MICAH Glucose 15 gm 07/26/25 22:31 Glucose Oral Gel 15 Gm Of Glucse In 37.5 Gm Tube PO PRN PRN Hypoglycemia Protocol Hydromorphone HCl 1 mg 07/27/25 17:10 Hydromorphone Hcl Inj (*Crx) 1 Mg/Ml Syr IV PUSH Q2H PRN Breakthrough Pain Rated 7-10 or NPO Hydromorphone HCl 0.5 mg 07/27/25 17:10 Hydromorphone Hcl Inj (*Crx) 1 Mg/Ml Syr IV PUSH Q2H PRN Breakthrough Pain Rated 4-6 or NPO Dextrose 1,000 mls @ 100 mls/hr 07/26/25 22:31 Dextrose 5% 1,000 Ml IVPB PRN PRN Hypoglycemia Protocol Ibuprofen 800 mg in 200 mls @ 400 mls/hr 07/27/25 17:10 Caldolor 800 Mg/200 Ml IVPB Q6H PRN Breakthrough Pain Rated 1-3 or NPO Dextrose/Sodium Chloride 1,000 mls @ 70 mls/hr 07/30/25 18:35 08/01/25 02:03 Dextrose 5% Sodium Chloride 0.9% IV CONT 70 mls/hr .[id number] MICAH Administration Levofloxacin/Dextrose 750 mg in 150 mls @ 100 mls/hr 08/01/25 12:30 08/01/25 14:14 Levaquin 750 Mg/D5w 150 Ml IVPB 100 mls/hr DAILY MICAH Administration Linezolid 600 mg 08/01/25 12:00 08/01/25 14:13 Linezolid 600 Mg Tablet PO 600 mg Q12HR MICAH Administration Metronidazole 500 mg 07/29/25 22:00 08/01/25 14:31 Metronidazole 500 Mg Tablet PO 500 mg Q8HR MICAH Administration Midodrine 2.5 mg 07/31/25 17:50 08/01/25 14:13 Midodrine Hcl 2.5 Mg Tablet PO 2.5 mg TID MICAH Administration Montelukast Sodium 10 mg 07/28/25 21:00 07/31/25 21:42 Montelukast Sodium 10 Mg Tablet PO 10 mg HS MICAH Administration Multi-Ingred Cream/Lotion/Oil/Oint 1 applic 07/31/25 17:45 08/01/25 10:12 Eucerin Cream 120 Gm Jar TOPICAL 1 applic DAILY MICAH Administration Naloxone HCl 0.1 mg 07/27/25 17:10 Naloxone Hcl 0.4 Mg/Ml Vial IV PUSH Q2M PRN Opiate Reversal Ondansetron HCl 4 mg 07/27/25 17:10 08/01/25 05:58 Ondansetron Inj 4 Mg/2 Ml Vial IV PUSH 4 mg Q4H PRN Administration Nausea And Vomiting Polyethylene Glycol 17 gm 07/30/25 17:05 08/01/25 10:11 Polyethylene Glycol 3350 17 Gm Powd.Pack PO 17 gm BID MICAH Administration Rivaroxaban 10 mg 07/29/25 17:00 07/31/25 18:51 Rivaroxaban 10 Mg Tablet PO 10 mg 1700 MICAH Administration Vitamin D 25 mcg 07/29/25 09:00 08/01/25 10:11 Cholecalciferol (Vitamin D3) 25 Mcg (1,000 Units) Tablet PO 25 mcg DAILY MICAH Administration Radiology Results: ITS Impressions Abdomen/Pelvis CT 07/26/25 18:25 IMPRESSION: 1. Small focal ulceration with mild inflammatory change involving the posterior soft tissues just below the coccyx. No drainable fluid collection identified. 2: Moderately distended small bowel and colon with air-fluid levels, consistent with ileus. Head CT 07/27/25 08:07 IMPRESSION: 1. Age-related changes including mild to moderate diffuse volume loss and moderate scattered white matter hypoattenuation consistent with chronic small vessel ischemic disease. No acute intracranial process. Abdomen X-Ray 07/28/25 13:00 IMPRESSION: 1. Left lower lobe airspace disease, suspicious for pneumonia. 2: Small left pleural effusion. Chest X-Ray 07/31/25 13:21 IMPRESSION: 1. Left basilar atelectasis and/or airspace disease. 2. Small left effusion not excluded. 3. Suspect developing mild interstitial pulmonary edema. Labs Labs: Laboratory Results - last 24 hr 08/01/25 05:37 WBC 18.2 H RBC 3.95 L Hgb 11.3 L Hct 37.1 L MCV 93.9 MCH 28.6 MCHC 30.5 L RDW 14.5 Plt Count 385 H MPV 9.8 Immature Gran % (Auto) 3.8 H Neut % (Auto) 64.4 Lymph % (Auto) 17.7 L [place] % (Auto) 7.5 Eos % (Auto) 6.0 H Baso % (Auto) 0.6 Lymph # (Auto) 3.21 H [place] # (Auto) 1.4 H Eos # (Auto) 1.1 H Baso # (Auto) 0.1 Abs Immat Gran (auto) 0.69 H Absolute Neuts (auto) 11.7 H Absolute Nucleated RBC 0.000 Nucleated RBC % 0.0 Sodium 134 L Potassium 3.9 Chloride 106 Carbon Dioxide 27 Anion Gap 1 L BUN 9 Creatinine 0.51 L Estim Creat Clear Calc 120 Estimated GFR > 60 Glucose 119 H Calcium 7.7 L Phosphorus 2.5 Total Bilirubin 0.3 AST 43 ALT 39 Alkaline Phosphatase 135 H Total Protein 5.0 L Albumin 2.2 L
[2025-08-01] MEDS: LACTULOSE 20 GM/30 ML UDC PO (17:38)
[2025-08-01] MEDS: MIDODRINE HCL 2.5 MG TABLET 5 MG PO (17:38)
[2025-08-01] MEDS: RIVAROXABAN 10 MG TABLET PO (17:39)
[2025-08-01] MEDS: MONTELUKAST SODIUM 10 MG TABLET PO (21:56)
[2025-08-01 22:00] VITALS: BP 94/53; PULSE 76; RESP 16; TEMP 36.4; O2SAT 93
--- NOTE | 2025-08-02 00:59 | PC.NURSE ---
Pt refusing turns at this time. Pt currently mildly confused, aware in the hospital and why they are here, unsure of which hospital and month, otherwise oriented. Pt verbalized understanding that frequent turns are crucial to maintaining skin integrity and to promote wound healing, pt adamantly refusing to turn, states maybe later he will comply.
[2025-08-02] MEDS: DEXTROSE 5%/0.9% SOD CHL 1,000 ML 70 ML IV CONT (05:56)
[2025-08-02 06:13] LABS: Hematocrit 35.1 % (42.0-52.0); Hemoglobin 10.7 g/dL (14.0-18.0); Immature Granulocyte Percent A 3.4 % (0-0.5); Lymphocytes Absolute Auto 2.98 K/mm3 (0.9-3.2); Mean Corpuscular HGB Conc 30.5 g/dl (32-36); Mean Corpuscular Hemoglobin 28.8 pg (26-34); Mean Corpuscular Volume 94.6 fl (80-100); Nucleated Red Blood Cells Absolute Auto 0.000 K/mm3 (0.0-0.012); Nucleated Red Blood Cells Perc 0.0 % (0.0-0.2); Platelet Count Result 354 k/mm3 (150-375); Red Blood Count 3.71 M/mm3 (4.6-6.20); White Blood Count 15.6 K/mm3 (4.5-10.0)
[2025-08-02 06:42] LABS: Albumin Level 2.0 g/dL (3.5-5.1); Anion Gap -1 mmol/L (4-12); Blood Urea Nitrogen 5 mg/dL (9-20); Calcium 7.5 mg/dL (8.4-10.2); Carbon Dioxide 27 mmol/L (22-30); Chloride 105 mmol/L (98-107); Estimated CRCL calculation 123 ml/min; Estimated Glomerular Filt Rate > 60; Glucose 131 mg/dL (65-110); Magnesium 1.8 mg/dL (1.6-2.3); Potassium 3.8 mmol/L (3.4-5.0); Sodium 131 mmol/L (137-145)
[2025-08-02] MEDS: FLUTICASONE/UMECLIDIN/VILANTER 100-62.5-25 MCG ELLIPTA 1 PUFF INHALATION (07:38)
[2025-08-02 07:40] VITALS: BP 91/60; PULSE 89; RESP 18; TEMP 36.1; O2SAT 100
[2025-08-02 08:10] VITALS: PULSE 94; RESP 20; O2SAT 95
[2025-08-02 09:01] VITALS: BMI 10.0
[2025-08-02] MEDS: CYANOCOBALAMIN 1,000 MCG TABLET 1000 MCG PO (09:47)
[2025-08-02] MEDS: LACTULOSE 20 GM/30 ML UDC PO (09:48)
[2025-08-02] MEDS: BISACODYL 10 MG SUPPOSITORY RECTAL (09:48)
[2025-08-02] MEDS: MIDODRINE HCL 2.5 MG TABLET 5 MG PO ×3 (09:48→17:17)
[2025-08-02] MEDS: ASCORBIC ACID 500 MG TABLET PO (09:48)
[2025-08-02] MEDS: CHOLECALCIFEROL (VITAMIN D3) 25 MCG (1,000 UNITS) TABLET PO (09:48)
[2025-08-02] MEDS: LINEZOLID 600 MG TABLET PO ×2 (09:48→20:02)
[2025-08-02] MEDS: EUCERIN CREAM 120 GM JAR 1 APPLIC TOPICAL (09:49)
[2025-08-02] MEDS: levoFLOXacin 750 MG/D5W 150 ML 750 MG/150 ML BAG 100 MG IVPB (09:49)
[2025-08-02] MEDS: ONDANSETRON INJ 4 MG/2 ML VIAL IV PUSH (10:16)
[2025-08-02] MEDS: FLUCONAZOLE 100 MG TABLET 200 MG PO (12:49)
--- NOTE | 2025-08-02 13:42 | P.PNIM_ITS ---
Progress Note: A&P Assessment and Plan (1) Sepsis: Code(s): A41.9 - Sepsis, unspecified organism Status: Acute Assessment and Plan: Sepsis - possibly related to either UTI and/or decubitus ulcer to the sacrum and left heel, right lateral foot with some purulence. Blood pressure was soft and patient given 30 cc per kg bolus. CXR was clear. Influenza, RSV and COVID PCR negative. CT abdomen pelvis shows decubitus ulcer without abscess, likely ileus as well. Lung bases unremarkable. Lactic acid normal. White count 17 K. UA consistent with UTI. He was started on cefepime vancomycin and metronidazole. General surgery consulted and patient underwent sharp excisional debridement stage IV sacral decubitus ulcer including skin, subcutaneous fat, muscle, and fascia/tendon measuring 15 cm x 8 cm on 07/27/25. BCx NGTD UCx growing Nehal BP still soft so Delgado hose and midodrine added. Abx changed to Bactrim and Flagyl but white count climbed to 18K with Eosinophil 1100cells - could be related to abx since he did have a rash early in his course that has resolved. Discussed with PharmD ID. Abx adjusted to linezolid and Levaquin. WBC trending down now. Consider ESBL coverage if WBC continues to climb. Continue wound care. Appreciate GenSurg input. (2) Acute respiratory distress: Code(s): R06.03 - Acute respiratory distress Status: Acute Assessment and Plan: Patient was 88% on room air. Chest x-ray was clear. Lung bases unremarkable by CT. Viral PCR was negative. He is on Xarelto at home making PE less likely. He remains on supplemental O2. Repeat CXR showing left basilar airspace disease, small left effusion and possible pulmonary edema. BP soft so unable to give Lasix. Continue Delgado hose. Continue midodrine. Wean oxygen as tolerated. (3) Altered mental status: Code(s): R41.82 - Altered mental status, unspecified Status: Acute Assessment and Plan: Head CT showing age-related changes including mild-moderate diffuse volume loss and moderate scattered white matter hypoattenuation consistent with chronic small-vessel ischemic disease but no acute findings. Ammonia level negative. TSH normal. UDS negative. B12 level low at 231. Folate normal. Vit D <12.8. Likely has metabolic encephalopathy due to UTI, sacral infection, B12 and VitD deficiency and less likely MS flare. Symptoms improving. Fall precautions. Replacing B12 and VitD (4) Ileus: Code(s): K56.7 - Ileus, unspecified Status: Acute Assessment and Plan: Ileus -CT scan showed probable ileus related to sepsis. Serial exams and Abdominal x-rays showing ileus has resolved. Diet resumed but not tolerating this well. Miralax added and advanced. Dulcolax suppositories added. Still no BMs documented yet. Last Abd series 07/28 showing gas/stool throughout the colon with prominent fecal loading. Changed to lactulose. Add enema. (5) Decubitus ulcer, infected: Code(s): L89.90 - Pressure ulcer of unspecified site, unspecified stage; L08.9 - Local infection of the skin and subcutaneous tissue, unspecified Status: Acute Assessment and Plan: Related to the fact that he is bed-bound from his MS. Continue dressing changes. Frequent turning As above. (6) Multiple sclerosis: Code(s): G35 - Multiple sclerosis Status: Chronic Assessment and Plan: Patient on interferon prior to admission. Mental status improving. Neurology following Resume Interferon when infection better controlled. Monitor mental status. (7) COPD (chronic obstructive pulmonary disease): Code(s): J44.9 - Chronic obstructive pulmonary disease, unspecified Status: Chronic Assessment and Plan: No wheezing appreciated but he remains on oxygen. Continue Trelegy. Albuterol p.r.n.. (8) UTI (urinary tract infection): Code(s): N39.0 - Urinary tract infection, site not specified Status: Acute Assessment and Plan: Patient with a chronic indwelling urinary catheter. Patient most likely has urine retention from his MS. Patient with complicated UTI related to his urinary catheter. UCx growing nehal orthopsilosis. Diflucan recommended so will start Plan Code status - Full code. DVT prophylaxis - Xarelto Subjective Date/time seen: 08/02/25 13:42 Interval history: 69[facility] [place] who presents with altered mental status. Patient with nausea and vomiting this morning of whitish emesis (after taking his medications). Slept poorly. Not eating much. PT felt he might have right pain but patient denies hip pain. No Cp or SOB. No nausea yesterday but ate poorly yesterday. Refused breakfast this morning. No BMs Exam Narrative: AF 97.0 91/60 89 18 100% 3L Gen - NARD Chest -decreased BS in the bases o/w clear CV - RRR S1/S2 Abd -soft. NT/ND, +BS - Mondragon secured draining clear yellow urine. small amount of blood at meatus Ext - trace-1+ pedal edema. Limit ROM to the hips but obvious pain. No anterior hip pain. Neuro - alert and appropriate Psych - depressed mood Skin - Warm and dry. Right lateral foot, bilateral heel, and right hip and sacral area dressings are clean, dry and intact. Objective Data Vital Signs Vital Signs: Vital Signs - 24 hr 08/01/25 14:00 08/01/25 22:00 08/02/25 07:40 Temperature 97.9 F 97.6 F 97.0 F L Pulse Rate 82 76 89 Respiratory Rate 18 16 18 Blood Pressure 92/61 L 94/53 L 91/60 L Pulse Oximetry 97 93 100 Intake/Output Intake/Output: Intake & Output 07/30/25 07/31/25 08/01/25 08/02/25 23:59 23:59 23:59 23:59 Intake Total 700 1880.8 2630 1281.7 Output Total 1100 1250 1900 1600 Balance -400 630.8 730 -318.3 Meds/Results Medications: Active Medications Generic Name Dose Route Start Last Admin Trade Name Freq PRN Reason Stop Dose Admin Albuterol/Ipratropium 3 ml 07/27/25 17:46 07/27/25 18:34 Ipratropium 0.5 Mg/Albuterol Sulfate 2.5 Mg Ampul.Neb 3 Ml INHALATION 3 ml Q6HRT PRN Administration Shortness Of Breath Ascorbic Acid 500 mg 07/29/25 09:00 08/02/25 09:48 Ascorbic Acid 500 Mg Tablet PO 500 mg DAILY MICAH Administration Cyanocobalamin 1,000 mcg 07/29/25 09:00 08/02/25 09:47 Cyanocobalamin 1,000 Mcg Tablet PO 1,000 mcg QAM MICAH Administration Dextrose 12.5 gm 07/26/25 22:31 Dextrose 50% 25 Gm/50 Ml Syringe IV PUSH PRN PRN Hypoglycemia Protocol Diphenhydramine HCl 25 mg 07/27/25 17:10 Diphenhydramine Hcl Inj 50 Mg/Ml Vial IV PUSH Q6H PRN Itching Fluconazole 200 mg 08/02/25 11:30 08/02/25 12:49 Fluconazole 100 Mg Tablet PO 08/15/25 09:01 200 mg QAM MICAH Administration Fluticasone/Umeclidinium/Vilanterol 1 puff 07/27/25 08:00 08/02/25 07:38 Fluticasone/Umeclidin/Vilanter 100-62.5-25 Mcg Ellipta INHALATION 1 puff DAILYRT MICAH Administration Glucose 15 gm 07/26/25 22:31 Glucose Oral Gel 15 Gm Of Glucse In 37.5 Gm Tube PO PRN PRN Hypoglycemia Protocol Hydromorphone HCl 1 mg 07/27/25 17:10 Hydromorphone Hcl Inj (*Crx) 1 Mg/Ml Syr IV PUSH Q2H PRN Breakthrough Pain Rated 7-10 or NPO Hydromorphone HCl 0.5 mg 07/27/25 17:10 Hydromorphone Hcl Inj (*Crx) 1 Mg/Ml Syr IV PUSH Q2H PRN Breakthrough Pain Rated 4-6 or NPO Dextrose 1,000 mls @ 100 mls/hr 07/26/25 22:31 Dextrose 5% 1,000 Ml IVPB PRN PRN Hypoglycemia Protocol Ibuprofen 800 mg in 200 mls @ 400 mls/hr 07/27/25 17:10 Caldolor 800 Mg/200 Ml IVPB Q6H PRN Breakthrough Pain Rated 1-3 or NPO Dextrose/Sodium Chloride 1,000 mls @ 70 mls/hr 07/30/25 18:35 08/02/25 05:56 Dextrose 5% Sodium Chloride 0.9% IV CONT 70 mls/hr .[id number] MICAH Administration Levofloxacin/Dextrose 750 mg in 150 mls @ 100 mls/hr 08/01/25 12:30 08/02/25 09:49 Levaquin 750 Mg/D5w 150 Ml IVPB 100 mls/hr DAILY MICAH Administration Lactulose 20 gm 08/01/25 17:00 08/02/25 09:48 Lactulose 20 Gm/30 Ml Udc PO 20 gm BID MICAH Administration Linezolid 600 mg 08/01/25 12:00 08/02/25 09:48 Linezolid 600 Mg Tablet PO 600 mg Q12HR MICAH Administration Metronidazole 500 mg 07/29/25 22:00 08/02/25 12:49 Metronidazole 500 Mg Tablet PO 500 mg Q8HR MICAH Administration Midodrine 5 mg 08/01/25 17:00 08/02/25 12:49 Midodrine Hcl 2.5 Mg Tablet PO 5 mg TID MICAH Administration Montelukast Sodium 10 mg 07/28/25 21:00 08/01/25 21:56 Montelukast Sodium 10 Mg Tablet PO 10 mg HS MICAH Administration Multi-Ingred Cream/Lotion/Oil/Oint 1 applic 07/31/25 17:45 08/02/25 09:49 Eucerin Cream 120 Gm Jar TOPICAL 1 applic DAILY MICAH Administration Naloxone HCl 0.1 mg 07/27/25 17:10 Naloxone Hcl 0.4 Mg/Ml Vial IV PUSH Q2M PRN Opiate Reversal Ondansetron HCl 4 mg 07/27/25 17:10 08/02/25 10:16 Ondansetron Inj 4 Mg/2 Ml Vial IV PUSH 4 mg Q4H PRN Administration Nausea And Vomiting Rivaroxaban 10 mg 07/29/25 17:00 08/01/25 17:39 Rivaroxaban 10 Mg Tablet PO 10 mg 1700 MICAH Administration Vitamin D 25 mcg 07/29/25 09:00 08/02/25 09:48 Cholecalciferol (Vitamin D3) 25 Mcg (1,000 Units) Tablet PO 25 mcg DAILY MICAH Administration Radiology Results: ITS Impressions Abdomen/Pelvis CT 07/26/25 18:25 IMPRESSION: 1. Small focal ulceration with mild inflammatory change involving the posterior soft tissues just below the coccyx. No drainable fluid collection identified. 2: Moderately distended small bowel and colon with air-fluid levels, consistent with ileus. Head CT 07/27/25 08:07 IMPRESSION: 1. Age-related changes including mild to moderate diffuse volume loss and moderate scattered white matter hypoattenuation consistent with chronic small vessel ischemic disease. No acute intracranial process. Abdomen X-Ray 07/28/25 13:00 IMPRESSION: 1. Left lower lobe airspace disease, suspicious for pneumonia. 2: Small left pleural effusion. Chest X-Ray 07/31/25 13:21 IMPRESSION: 1. Left basilar atelectasis and/or airspace disease. 2. Small left effusion not excluded. 3. Suspect developing mild interstitial pulmonary edema. Labs Labs: Laboratory Results - last 24 hr 08/02/25 05:53 WBC 15.6 H RBC 3.71 L Hgb 10.7 L Hct 35.1 L MCV 94.6 MCH 28.8 MCHC 30.5 L RDW 14.5 Plt Count 354 MPV 9.5 Immature Gran % (Auto) 3.4 H Neut % (Auto) 64.8 Lymph % (Auto) 19.1 [place] % (Auto) 7.9 Eos % (Auto) 4.2 Baso % (Auto) 0.6 Lymph # (Auto) 2.98 [place] # (Auto) 1.2 H Eos # (Auto) 0.7 H Baso # (Auto) 0.1 Abs Immat Gran (auto) 0.53 H Absolute Neuts (auto) 10.1 H Absolute Nucleated RBC 0.000 Nucleated RBC % 0.0 Sodium 131 L Potassium 3.8 Chloride 105 Carbon Dioxide 27 Anion Gap -1 L BUN 5 L Creatinine 0.50 L Estim Creat Clear Calc 123 Estimated GFR > 60 Glucose 131 H Calcium 7.5 L Phosphorus 2.7 Magnesium 1.8 Albumin 2.0 L
[2025-08-02 13:48] VITALS: BP 104/67; PULSE 94; RESP 20; TEMP 36; O2SAT 95
--- NOTE | 2025-08-02 14:48 | P.PNGS_ITS ---
Progress Note: A&P Assessment and Plan (1) Decubitus ulcer, infected: Code(s): L89.90 - Pressure ulcer of unspecified site, unspecified stage; L08.9 - Local infection of the skin and subcutaneous tissue, unspecified Status: Acute Assessment and Plan: * Pod 6 status post strep excisional debridement stage IV sacral decubitus ulcer including skin, subcutaneous fat, muscle, and fascia/tendon measuring 15 cm x 8 cm. * Wound packing changed with myself and nurse at bedside today. Appears stable this morning with no saturation through the dressing. No active bleeding. No purulence. No new signs of infection. * Continue application of silver gel to sacral wound and covering with gauze and ABC pads. For left hip wound, apply Betadine to the area and cover with a Mepilex dressing. For right lateral foot ulcer, apply silver gel and cover with Mepilex border dressing. Cover heels with Mepilex border dressing. * Continue oral Flagyl and IV Levaquin. WBC remains elevated. Slightly decreased from yesterday. * Still no BM. Continue to stimulate bowels. Suppository give again today. (2) Sepsis: Code(s): A41.9 - Sepsis, unspecified organism Status: Acute Assessment and Plan: * Source likely related to decubitus ulcer vs UTI vs combination. Continue broad-spectrum IV antibiotics * Blood cultures pending -preliminarily no growth (3) UTI (urinary tract infection): Code(s): N39.0 - Urinary tract infection, site not specified Status: Acute Assessment and Plan: * Urine culture final for drew orthopsilosis. Started on Fluconazole today. (4) Multiple sclerosis: Code(s): G35 - Multiple sclerosis Status: Chronic (5) COPD (chronic obstructive pulmonary disease): Code(s): J44.9 - Chronic obstructive pulmonary disease, unspecified Status: Chronic Assessment and Plan: * Reportedly diagnosed with COPD about a month ago and quit smoking at that time (6) Right foot ulcer: Code(s): L97.519 - Non-pressure chronic ulcer of other part of right foot with unspecified severity Status: Acute Assessment and Plan: * Unstageable right lateral foot ulcer appears stable and does not appear to be infected. Continue to elevate his heels off the bed as the boots are rubbing on this wound. Continue local wound care to the right foot ulcer with silver gel and Mepilex border. Plan Discussed patient's case and plan of care with Dr. Richardson. Subjective Subjective Date/Time Seen: 08/02/25 14:48 Patient reports: feels better, no bowel movement and vomiting Interval history: Patient had an episode of emesis this morning after taking his meds. Upon my visit later in the morning, patient states he is no longer nauseous. WBC 15.6, down from 18.2 yesterday. Afebrile. Still no bowel movement. Exam Const: General: comfortable and no acute distress Back/Spine/Pelvis: Other: Some persistent necrotic tissue overlying sacrum but the rest of the surrounding wound appears healthy and viable. No purulence drainage. No surrounding re dness. Patient tolerated dressing change well. Objective Data Vital Signs Vital Signs: Vital Signs - 24 hr 08/01/25 22:00 08/02/25 07:40 08/02/25 08:10 Temperature 97.6 F 97.0 F L Pulse Rate 76 89 94 Respiratory Rate 16 18 20 Blood Pressure 94/53 L 91/60 L Pulse Oximetry 93 100 95 Oxygen Delivery Nasal Cannula Oxygen Flow Rate 3 08/02/25 13:48 Temperature 96.8 F L Pulse Rate 94 Respiratory Rate 20 Blood Pressure 104/67 Pulse Oximetry 95 Oxygen Delivery Oxygen Flow Rate Intake/Output Intake/Output: Intake & Output 07/30/25 07/31/25 08/01/25 08/02/25 23:59 23:59 23:59 23:59 Intake Total 700 1880.8 2630 1431.7 Output Total 1100 1250 1900 2350 Balance -400 630.8 730 -918.3 Meds/Results Medications: Active Medications Generic Name Dose Route Start Last Admin Trade Name Freq PRN Reason Stop Dose Admin Albuterol/Ipratropium 3 ml 07/27/25 17:46 07/27/25 18:34 Ipratropium 0.5 Mg/Albuterol Sulfate 2.5 Mg Ampul.Neb 3 Ml INHALATION 3 ml Q6HRT PRN Administration Shortness Of Breath Ascorbic Acid 500 mg 07/29/25 09:00 08/02/25 09:48 Ascorbic Acid 500 Mg Tablet PO 500 mg DAILY MICAH Administration Cyanocobalamin 1,000 mcg 07/29/25 09:00 08/02/25 09:47 Cyanocobalamin 1,000 Mcg Tablet PO 1,000 mcg QAM MICAH Administration Dextrose 12.5 gm 07/26/25 22:31 Dextrose 50% 25 Gm/50 Ml Syringe IV PUSH PRN PRN Hypoglycemia Protocol Diphenhydramine HCl 25 mg 07/27/25 17:10 Diphenhydramine Hcl Inj 50 Mg/Ml Vial IV PUSH Q6H PRN Itching Fluconazole 200 mg 08/02/25 11:30 08/02/25 12:49 Fluconazole 100 Mg Tablet PO 08/15/25 09:01 200 mg QAM MICAH Administration Fluticasone/Umeclidinium/Vilanterol 1 puff 07/27/25 08:00 08/02/25 07:38 Fluticasone/Umeclidin/Vilanter 100-62.5-25 Mcg Ellipta INHALATION 1 puff DAILYRT MICAH Administration Glucose 15 gm 07/26/25 22:31 Glucose Oral Gel 15 Gm Of Glucse In 37.5 Gm Tube PO PRN PRN Hypoglycemia Protocol Hydromorphone HCl 1 mg 07/27/25 17:10 Hydromorphone Hcl Inj (*Crx) 1 Mg/Ml Syr IV PUSH Q2H PRN Breakthrough Pain Rated 7-10 or NPO Hydromorphone HCl 0.5 mg 07/27/25 17:10 Hydromorphone Hcl Inj (*Crx) 1 Mg/Ml Syr IV PUSH Q2H PRN Breakthrough Pain Rated 4-6 or NPO Dextrose 1,000 mls @ 100 mls/hr 07/26/25 22:31 Dextrose 5% 1,000 Ml IVPB PRN PRN Hypoglycemia Protocol Ibuprofen 800 mg in 200 mls @ 400 mls/hr 07/27/25 17:10 Caldolor 800 Mg/200 Ml IVPB Q6H PRN Breakthrough Pain Rated 1-3 or NPO Dextrose/Sodium Chloride 1,000 mls @ 70 mls/hr 07/30/25 18:35 08/02/25 05:56 Dextrose 5% Sodium Chloride 0.9% IV CONT 70 mls/hr .[id number] MICAH Administration Levofloxacin/Dextrose 750 mg in 150 mls @ 100 mls/hr 08/01/25 12:30 08/02/25 11:19 Levaquin 750 Mg/D5w 150 Ml IVPB Infused DAILY MICAH Infusion Lactulose 20 gm 08/01/25 17:00 08/02/25 09:48 Lactulose 20 Gm/30 Ml Udc PO 20 gm BID MICAH Administration Linezolid 600 mg 08/01/25 12:00 08/02/25 09:48 Linezolid 600 Mg Tablet PO 600 mg Q12HR MICAH Administration Metronidazole 500 mg 07/29/25 22:00 08/02/25 12:49 Metronidazole 500 Mg Tablet PO 500 mg Q8HR MICAH Administration Midodrine 5 mg 08/01/25 17:00 08/02/25 12:49 Midodrine Hcl 2.5 Mg Tablet PO 5 mg TID MICAH Administration Montelukast Sodium 10 mg 07/28/25 21:00 08/01/25 21:56 Montelukast Sodium 10 Mg Tablet PO 10 mg HS MICAH Administration Multi-Ingred Cream/Lotion/Oil/Oint 1 applic 07/31/25 17:45 08/02/25 09:49 Eucerin Cream 120 Gm Jar TOPICAL 1 applic DAILY MICAH Administration Naloxone HCl 0.1 mg 07/27/25 17:10 Naloxone Hcl 0.4 Mg/Ml Vial IV PUSH Q2M PRN Opiate Reversal Ondansetron HCl 4 mg 07/27/25 17:10 08/02/25 10:16 Ondansetron Inj 4 Mg/2 Ml Vial IV PUSH 4 mg Q4H PRN Administration Nausea And Vomiting Rivaroxaban 10 mg 07/29/25 17:00 08/01/25 17:39 Rivaroxaban 10 Mg Tablet PO 10 mg 1700 MICAH Administration Vitamin D 25 mcg 07/29/25 09:00 08/02/25 09:48 Cholecalciferol (Vitamin D3) 25 Mcg (1,000 Units) Tablet PO 25 mcg DAILY MICAH Administration Radiology Results: ITS Impressions Abdomen/Pelvis CT 07/26/25 18:25 IMPRESSION: 1. Small focal ulceration with mild inflammatory change involving the posterior soft tissues just below the coccyx. No drainable fluid collection identified. 2: Moderately distended small bowel and colon with air-fluid levels, consistent with ileus. Head CT 07/27/25 08:07 IMPRESSION: 1. Age-related changes including mild to moderate diffuse volume loss and moderate scattered white matter hypoattenuation consistent with chronic small vessel ischemic disease. No acute intracranial process. Abdomen X-Ray 07/28/25 13:00 IMPRESSION: 1. Left lower lobe airspace disease, suspicious for pneumonia. 2: Small left pleural effusion. Chest X-Ray 07/31/25 13:21 IMPRESSION: 1. Left basilar atelectasis and/or airspace disease. 2. Small left effusion not excluded. 3. Suspect developing mild interstitial pulmonary edema. Labs Labs: Laboratory Results - last 24 hr 08/02/25 05:53 WBC 15.6 H RBC 3.71 L Hgb 10.7 L Hct 35.1 L MCV 94.6 MCH 28.8 MCHC 30.5 L RDW 14.5 Plt Count 354 MPV 9.5 Immature Gran % (Auto) 3.4 H Neut % (Auto) 64.8 Lymph % (Auto) 19.1 [place] % (Auto) 7.9 Eos % (Auto) 4.2 Baso % (Auto) 0.6 Lymph # (Auto) 2.98 [place] # (Auto) 1.2 H Eos # (Auto) 0.7 H Baso # (Auto) 0.1 Abs Immat Gran (auto) 0.53 H Absolute Neuts (auto) 10.1 H Absolute Nucleated RBC 0.000 Nucleated RBC % 0.0 Sodium 131 L Potassium 3.8 Chloride 105 Carbon Dioxide 27 Anion Gap -1 L BUN 5 L Creatinine 0.50 L Estim Creat Clear Calc 123 Estimated GFR > 60 Glucose 131 H Calcium 7.5 L Phosphorus 2.7 Magnesium 1.8 Albumin 2.0 L
[2025-08-02 16:45] VITALS: O2SAT 93
[2025-08-02] MEDS: RIVAROXABAN 10 MG TABLET PO (17:17)
[2025-08-02 20:00] VITALS: O2SAT 93
[2025-08-02] MEDS: MONTELUKAST SODIUM 10 MG TABLET PO (20:02)
[2025-08-02 22:00] VITALS: BP 95/48; PULSE 80; RESP 18; TEMP 36.2; O2SAT 94
[2025-08-03] VITALS (7 sets, daily range): BP systolic 94–110; BP diastolic 48–64; PULSE 68–83; RESP 18; TEMP 36.1–36.6; O2SAT 85–98
[2025-08-03] MEDS: DEXTROSE 5%/0.9% SOD CHL 1,000 ML 50 ML IV CONT (03:09)
[2025-08-03 06:31] LABS: Hematocrit 37.0 % (42.0-52.0); Hemoglobin 11.2 g/dL (14.0-18.0); Immature Granulocyte Percent A 3.0 % (0-0.5); Lymphocytes Absolute Auto 2.93 K/mm3 (0.9-3.2); Mean Corpuscular HGB Conc 30.3 g/dl (32-36); Mean Corpuscular Hemoglobin 28.9 pg (26-34); Mean Corpuscular Volume 95.6 fl (80-100); Nucleated Red Blood Cells Absolute Auto 0.000 K/mm3 (0.0-0.012); Nucleated Red Blood Cells Perc 0.0 % (0.0-0.2); Platelet Count Result 383 k/mm3 (150-375); Red Blood Count 3.87 M/mm3 (4.6-6.20); White Blood Count 14.9 K/mm3 (4.5-10.0)
[2025-08-03 07:10] LABS: Alanine Aminotransferase 29 U/L (6-50); Albumin Level 2.2 g/dL (3.5-5.1); Alkaline Phosphatase 117 U/L (38-126); Anion Gap 1 mmol/L (4-12); Aspartate Amino Transferase 32 U/L (17-59); Bilirubin,Total 0.3 mg/dL (0.2-1.3); Blood Urea Nitrogen 3 mg/dL (9-20); Calcium 7.7 mg/dL (8.4-10.2); Carbon Dioxide 27 mmol/L (22-30); Chloride 105 mmol/L (98-107); Estimated CRCL calculation 117 ml/min; Estimated Glomerular Filt Rate > 60; Glucose 111 mg/dL (65-110); Magnesium 1.8 mg/dL (1.6-2.3); Potassium 3.6 mmol/L (3.4-5.0); Sodium 133 mmol/L (137-145); Total Protein 4.9 g/dL (6.3-8.2)
[2025-08-03] MEDS: FLUTICASONE/UMECLIDIN/VILANTER 100-62.5-25 MCG ELLIPTA 1 PUFF INHALATION (08:25)
[2025-08-03] MEDS: LACTULOSE 20 GM/30 ML UDC PO ×2 (08:39→16:55)
[2025-08-03] MEDS: FLUCONAZOLE 100 MG TABLET 200 MG PO (08:39)
[2025-08-03] MEDS: CYANOCOBALAMIN 1,000 MCG TABLET 1000 MCG PO (08:39)
[2025-08-03] MEDS: MIDODRINE HCL 2.5 MG TABLET 5 MG PO (08:39)
[2025-08-03] MEDS: EUCERIN CREAM 120 GM JAR 1 APPLIC TOPICAL (08:40)
[2025-08-03] MEDS: ASCORBIC ACID 500 MG TABLET PO (08:40)
[2025-08-03] MEDS: LINEZOLID 600 MG TABLET PO ×2 (08:40→21:15)
[2025-08-03] MEDS: levoFLOXacin 750 MG/D5W 150 ML 750 MG/150 ML BAG 100 MG IVPB (08:40)
[2025-08-03] MEDS: CHOLECALCIFEROL (VITAMIN D3) 25 MCG (1,000 UNITS) TABLET PO (08:40)
--- NOTE | 2025-08-03 10:47 | PM.IMPN ---
Progress Note: A&P Assessment and Plan (1) Hypertension: Code(s): I10 - Essential (primary) hypertension Status: Acute (2) Ileus: Code(s): K56.7 - Ileus, unspecified Status: Acute (3) Leukocytosis: Code(s): D72.829 - Elevated white blood cell count, unspecified Status: Acute (4) Sepsis: Code(s): A41.9 - Sepsis, unspecified organism Status: Acute (5) Right foot ulcer: Code(s): L97.519 - Non-pressure chronic ulcer of other part of right foot with unspecified severity Status: Acute (6) Decubitus ulcer, infected: Code(s): L89.90 - Pressure ulcer of unspecified site, unspecified stage; L08.9 - Local infection of the skin and subcutaneous tissue, unspecified Status: Acute (7) Altered mental status: Code(s): R41.82 - Altered mental status, unspecified Status: Acute (8) COPD (chronic obstructive pulmonary disease): Code(s): J44.9 - Chronic obstructive pulmonary disease, unspecified Status: Chronic (9) Acute respiratory distress: Code(s): R06.03 - Acute respiratory distress Status: Acute Plan 69-year-old bed-bound intermediate patient presents with altered mental status, He has a decubitus ulcer to the sacrum and left heel, right lateral foot with some purulence.General Surgery was consulted.s/p Sharp excisional debridement stage IV sacral decubitus ulcer including skin, subcutaneous fat, muscle, and fascia/tendon measuring 15 cm x 8 cm. (1) Sepsis: Likely secondary to a UTI or decubitus ulcer to sacrum Chest x-ray was clear Influenza, asthma, COVID were negative He was initially started on cefepime vancomycin and metronidazole. Currently he is on Zyvox, Levaquin, Flagyl Still has leukocytosis, fluctuating Will get ID consult Local wound care as per surgery recommendation Blood pressure remains soft Continue with midodrine, will increase the dose to 10 mg daily Urine culture growing Nehal Currently on fluconazole Patient has chronic indwelling catheter (2) Acute respiratory distress: Continues to be on 4 L of O2 support ? Unclear etiology Blood pressure remains soft, will not tolerate Lasix Already on Xarelto, unlikely to be PE But will get CTA chest to rule out PE Obtain BMP with next set of labs Obtain echocardiogram (3) Altered mental status: Head CT showing age-related changes including mild-moderate diffuse volume loss and moderate scattered white matter hypoattenuation consistent with chronic small-vessel ischemic disease but no acute findings. Ammonia level negative. TSH normal. UDS negative. B12 level low at 231. Folate normal. Vit D <12.8. Likely has metabolic encephalopathy due to UTI, sacral infection, B12 and VitD deficiency Symptoms improving. Fall precautions. c/w B12 and VitD (4) Ileus: Ileus -CT scan showed probable ileus related to sepsis. Serial exams and Abdominal x-rays showing ileus has resolved. Constipation Continue with lactulose Will add Mag citrate (5) Multiple sclerosis: Patient on interferon prior to admission. Mental status improving. Neurology following Resume Interferon when infection better controlled. Monitor mental status. (6) COPD (chronic obstructive pulmonary disease): No wheezing appreciated but he remains on oxygen. Continue Trelegy. Albuterol p.r.n.. Obtain BNP Obtain echocardiogram obtain CTA chest 7. Code status: Full 8. DVT prophylaxis: Xarelto 9. Disposition: Pending improvement Time Spent With Patient Time: 39 minutes Subjective Date/time seen: 08/03/25 10:47 Interval history: no acute events overnight. Review of Systems Review of Systems: All systems reviewed & are unremarkable except as noted in HPI and below Exam Narrative: Gen - No acute distress Chest -B/L decreased breath sounds B/L CV - normal sinus rhythm Abd -soft, non tender, BS+ Ext - 1+ pedal edema. Neuro - alert Psych - depressed mood Skin - Warm and dry. Right lateral foot, bilateral heel, and right hip and sacral area dressings are clean, dry and intact. Objective Data Vital Signs Vital Signs: Vital Signs - 24 hr 08/02/25 13:48 08/02/25 16:45 08/02/25 20:00 Temperature 96.8 F L Pulse Rate 94 Respiratory Rate 20 Blood Pressure 104/67 Pulse Oximetry 95 93 93 Oxygen Delivery Nasal Cannula Nasal Cannula Oxygen Flow Rate 2.5 2 08/02/25 22:00 08/03/25 06:00 08/03/25 08:00 Temperature 97.1 F L 97.5 F L Pulse Rate 80 83 Respiratory Rate 18 18 Blood Pressure 95/48 L 97/48 L Pulse Oximetry 94 90 95 Oxygen Delivery Nasal Cannula Oxygen Flow Rate 4 08/03/25 08:25 08/03/25 08:30 Temperature Pulse Rate Respiratory Rate Blood Pressure Pulse Oximetry 85 L 90 Oxygen Delivery Nasal Cannula Nasal Cannula Oxygen Flow Rate 3 4 Intake/Output Intake/Output: Intake & Output 07/31/25 08/01/25 08/02/25 08/03/25 23:59 23:59 23:59 23:59 Intake Total 1880.8 2630 2431.7 Output Total 1250 1900 2650 1050 Balance 630.8 730 -218.3 -1050 Meds/Results Medications: Active Medications Generic Name Dose Route Start Last Admin Trade Name Freq PRN Reason Stop Dose Admin Acetaminophen 650 mg 08/02/25 16:13 Acetaminophen 325 Mg Tablet PO Q6H PRN Mild Pain (1-3) or Fever Albuterol/Ipratropium 3 ml 07/27/25 17:46 07/27/25 18:34 Ipratropium 0.5 Mg/Albuterol Sulfate 2.5 Mg Ampul.Neb 3 Ml INHALATION 3 ml Q6HRT PRN Administration Shortness Of Breath Ascorbic Acid 500 mg 07/29/25 09:00 08/03/25 08:40 Ascorbic Acid 500 Mg Tablet PO 500 mg DAILY MICAH Administration Cyanocobalamin 1,000 mcg 07/29/25 09:00 08/03/25 08:39 Cyanocobalamin 1,000 Mcg Tablet PO 1,000 mcg QAM MICAH Administration Dextrose 12.5 gm 07/26/25 22:31 Dextrose 50% 25 Gm/50 Ml Syringe IV PUSH PRN PRN Hypoglycemia Protocol Diphenhydramine HCl 25 mg 07/27/25 17:10 Diphenhydramine Hcl Inj 50 Mg/Ml Vial IV PUSH Q6H PRN Itching Fluconazole 200 mg 08/02/25 11:30 08/03/25 08:39 Fluconazole 100 Mg Tablet PO 08/15/25 09:01 200 mg QAM MICAH Administration Fluticasone/Umeclidinium/Vilanterol 1 puff 07/27/25 08:00 08/03/25 08:25 Fluticasone/Umeclidin/Vilanter 100-62.5-25 Mcg Ellipta INHALATION 1 puff DAILYRT MICAH Administration Glucose 15 gm 07/26/25 22:31 Glucose Oral Gel 15 Gm Of Glucse In 37.5 Gm Tube PO PRN PRN Hypoglycemia Protocol Hydromorphone HCl 1 mg 07/27/25 17:10 Hydromorphone Hcl Inj (*Crx) 1 Mg/Ml Syr IV PUSH Q2H PRN Breakthrough Pain Rated 7-10 or NPO Hydromorphone HCl 0.5 mg 07/27/25 17:10 Hydromorphone Hcl Inj (*Crx) 1 Mg/Ml Syr IV PUSH Q2H PRN Breakthrough Pain Rated 4-6 or NPO Dextrose 1,000 mls @ 100 mls/hr 07/26/25 22:31 Dextrose 5% 1,000 Ml IVPB PRN PRN Hypoglycemia Protocol Dextrose/Sodium Chloride 1,000 mls @ 50 mls/hr 07/30/25 18:35 08/03/25 03:09 Dextrose 5% Sodium Chloride 0.9% IV CONT 50 mls/hr .Q20H MICAH Administration Levofloxacin/Dextrose 750 mg in 150 mls @ 100 mls/hr 08/01/25 12:30 08/03/25 08:40 Levaquin 750 Mg/D5w 150 Ml IVPB 100 mls/hr DAILY MICAH Administration Lactulose 20 gm 08/01/25 17:00 08/03/25 08:39 Lactulose 20 Gm/30 Ml Udc PO 20 gm BID MICAH Administration Linezolid 600 mg 08/01/25 12:00 08/03/25 08:40 Linezolid 600 Mg Tablet PO 600 mg Q12HR MICAH Administration Metronidazole 500 mg 07/29/25 22:00 08/03/25 05:22 Metronidazole 500 Mg Tablet PO 500 mg Q8HR MICAH Administration Midodrine 5 mg 08/01/25 17:00 08/03/25 08:39 Midodrine Hcl 2.5 Mg Tablet PO 5 mg TID MICAH Administration Montelukast Sodium 10 mg 07/28/25 21:00 08/02/25 20:02 Montelukast Sodium 10 Mg Tablet PO 10 mg HS MICAH Administration Multi-Ingred Cream/Lotion/Oil/Oint 1 applic 07/31/25 17:45 08/03/25 08:40 Eucerin Cream 120 Gm Jar TOPICAL 1 applic DAILY MCIAH Administration Naloxone HCl 0.1 mg 07/27/25 17:10 Naloxone Hcl 0.4 Mg/Ml Vial IV PUSH Q2M PRN Opiate Reversal Ondansetron HCl 4 mg 07/27/25 17:10 08/02/25 10:16 Ondansetron Inj 4 Mg/2 Ml Vial IV PUSH 4 mg Q4H PRN Administration Nausea And Vomiting Rivaroxaban 10 mg 07/29/25 17:00 08/02/25 17:17 Rivaroxaban 10 Mg Tablet PO 10 mg 1700 MICAH Administration Vitamin D 25 mcg 07/29/25 09:00 08/03/25 08:40 Cholecalciferol (Vitamin D3) 25 Mcg (1,000 Units) Tablet PO 25 mcg DAILY MICAH Administration Radiology Results: ITS Impressions Abdomen/Pelvis CT 07/26/25 18:25 IMPRESSION: 1. Small focal ulceration with mild inflammatory change involving the posterior soft tissues just below the coccyx. No drainable fluid collection identified. 2: Moderately distended small bowel and colon with air-fluid levels, consistent with ileus. Head CT 07/27/25 08:07 IMPRESSION: 1. Age-related changes including mild to moderate diffuse volume loss and moderate scattered white matter hypoattenuation consistent with chronic small vessel ischemic disease. No acute intracranial process. Chest X-Ray 07/31/25 13:21 IMPRESSION: 1. Left basilar atelectasis and/or airspace disease. 2. Small left effusion not excluded. 3. Suspect developing mild interstitial pulmonary edema. Abdomen X-Ray 08/02/25 18:50 IMPRESSION: 1. No acute findings. 2. No increased stool burden to suggest large volume constipation. Labs Labs: Laboratory Results - last 24 hr 08/03/25 05:33 WBC 14.9 H RBC 3.87 L Hgb 11.2 L Hct 37.0 L MCV 95.6 MCH 28.9 MCHC 30.3 L RDW 14.7 H Plt Count 383 H MPV 9.6 Immature Gran % (Auto) 3.0 H Neut % (Auto) 64.9 Lymph % (Auto) 19.7 [place] % (Auto) 8.1 Eos % (Auto) 3.8 Baso % (Auto) 0.5 Lymph # (Auto) 2.93 [place] # (Auto) 1.2 H Eos # (Auto) 0.6 H Baso # (Auto) 0.1 Abs Immat Gran (auto) 0.44 H Absolute Neuts (auto) 9.7 H Absolute Nucleated RBC 0.000 Nucleated RBC % 0.0 Sodium 133 L Potassium 3.6 Chloride 105 Carbon Dioxide 27 Anion Gap 1 L BUN 3 L Creatinine 0.50 L Estim Creat Clear Calc 117 Estimated GFR > 60 Glucose 111 H Calcium 7.7 L Magnesium 1.8 Total Bilirubin 0.3 AST 32 ALT 29 Alkaline Phosphatase 117 Total Protein 4.9 L Albumin 2.2 L Quality VTE Prophylaxis VTE prophylaxis: pharmacologic ordered
--- NOTE | 2025-08-03 10:57 | WPDIDCN ---
Assessment and Plan Assessment and plan (1) Decubitus ulcer, infected: Code(s): L89.90 - Pressure ulcer of unspecified site, unspecified stage; L08.9 - Local infection of the skin and subcutaneous tissue, unspecified Status: Acute Assessment and Plan: Patient with stage 4 sacral pressure ulcer s/p debridement. No obvious evidence of osteomyelitis presently (2) Right foot ulcer: Code(s): L97.519 - Non-pressure chronic ulcer of other part of right foot with unspecified severity Status: Acute Assessment and Plan: Management as per primary service (3) UTI (urinary tract infection): Code(s): N39.0 - Urinary tract infection, site not specified Status: Acute Assessment and Plan: Patient without symptoms of UTI Candiduria not likely to be pathogenic presently (4) Multiple sclerosis: Code(s): G35 - Multiple sclerosis Status: Chronic Assessment and Plan: Management as per [facility] service Plan -Transition to oral Linezolid/Levofloxacin/Metronidazole x 14 day course for treatment of sacral pressure ulcer infection -Discontinue Fluconazole as overall low suspicion for Nehal UTI presently -Continue offloading ulcers and local wound care Antimicrobial plan of care discussed with patient. All questions answered. Patient was seen via video telehealth consultation with the assistance of staff. Chart, data, and patient independently reviewed. Patient was located at [facility] while I was located in my [place] office. Received verbal consent from patient. HPI Data of Consult Date/Time: 08/03/25 10:57 Requesting Physician: Arcadio Chatman MD Primary Care Provider: Gino Morin MD Consult Narrative Reason for consult: Stage 4 sacral pressure ulcer Narrative: Bashir Gruber Sr. is a 69 year old male with history of MS, COPD who was admitted with weakness. Patient noted to have unstagable sacral pressure ulcer and pressure ulcer of right lateral foot. He underwent excisional debridement of sacral pressure ulcer on 07/27/25 and noted to have devitalized/necrotic tissue. No abscess was noted and no overt signs of osteomyelitis noted intra-operatively. Patient is feeling better overall and denies specific complaints currently. Review of Systems Review of Systems: All systems reviewed & are unremarkable except as noted in HPI and below PMFSH Past Medical History Medical History (Updated 07/30/25 @ 17:04 by Jean Claude Moser MD) Metabolic encephalopathy Tobacco use COPD (chronic obstructive pulmonary disease) Multiple sclerosis BMI 22.0-22.9, adult Abnormal gait Surgical History Surgical History History of hip surgery Right hip pinning June 2024 at [place] Hx of tonsillectomy Family History Family History Father Liver cancer Mother No problems noted. Sibling No problems noted. Social History Social History Smoking packs per day: 1.5 Smoking cigarettes per day: 30.0 Years smoked: 50 Smoking pack-years: 75.00 Smoking status: Former smoker Second hand tobacco smoke exposure: Yes Alcohol intake: unknown Substance use: unknown Substance use type: unknown Do You Feel Safe in your Home?: Yes Lack of Transportation: No Lack of Food: Never True Current Housing: I Have Housing Concerned About Future Housing: No Difficulty Paying Gas/Electric Bills: No Difficulty Paying for Meds: No Currently Unemployed: No Education: High School Diploma/GED Difficulty w/ Childcare or Family Care: No Living arrangements: alone Occupation/Education: retired Additional occupation/education comments: [employer] Gender identity (if verbalized by the patient): Male Spiritual care concerns: No Meds Home Medications and Allergies Home Medications ?Medication ?Instructions ?Recorded ?Confirmed ?Type diphenhydramine HCl 25 mg tablet 25 mg PO QHS PRN rash 08/06/22 07/27/25 History (Benadryl Allergy) budesonide 160 mcg-glycopyr 9 2 inh inhalation BID #10.7 grams 02/17/25 07/27/25 Rx mcg-formot 4.8 mcg/actuation HFA inhaler (Breztri Aerosphere) interferon beta-1a (albumin) 44 See Rx Instructions subcut 3XW #12 05/05/25 07/27/25 Rx mcg/0.5 mL subcutaneous syringe syringes (Rebif (with albumin)) ascorbic acid (vitamin C) 500 mg 500 mg PO DAILY Wounds 07/27/25 07/27/25 History capsule,extended release clobetasol 0.05 % topical cream 1 applic topical BID rash 07/27/25 07/27/25 History collagenase clostridium histo. 250 1 applic topical DAILY 07/27/25 07/27/25 History unit/gram topical ointment (Santyl) geriatric multivitamin-min 1 cap PO DAILY Wounds 07/27/25 07/27/25 History ipratropium 0.5 mg-albuterol 3 mg 3 ml inhalation Q6H PRN copd 07/27/25 07/27/25 History (2.5 mg base)/3 mL nebulization soln montelukast 10 mg tablet 10 mg PO HS 07/27/25 07/27/25 History (Singulair) oxycodone 5 mg tablet 5 mg PO Q6H PRN pain 07/27/25 07/27/25 History rivaroxaban 10 mg tablet (Xarelto) 10 mg PO DAILY 07/27/25 07/27/25 History Allergies Allergy/AdvReac Type Severity Reaction Status Date / Time No Known Allergies Allergy Verified 07/27/25 13:01 Vital Signs Vital Signs - 24 hr 08/02/25 13:48 08/02/25 16:45 08/02/25 20:00 Temperature 96.8 F L Pulse Rate 94 Respiratory Rate 20 Blood Pressure 104/67 Pulse Oximetry 95 93 93 Oxygen Delivery Nasal Cannula Nasal Cannula Oxygen Flow Rate 2.5 2 08/02/25 22:00 08/03/25 06:00 08/03/25 08:00 Temperature 97.1 F L 97.5 F L Pulse Rate 80 83 Respiratory Rate 18 18 Blood Pressure 95/48 L 97/48 L Pulse Oximetry 94 90 95 Oxygen Delivery Nasal Cannula Oxygen Flow Rate 4 08/03/25 08:25 08/03/25 08:30 Temperature Pulse Rate Respiratory Rate Blood Pressure Pulse Oximetry 85 L 90 Oxygen Delivery Nasal Cannula Nasal Cannula Oxygen Flow Rate 3 4 Exam Narrative: Gen: A&O, NAD Pulm:on supplemental oxygen, mild conversational dyspnea Abd: soft : sacral pressure ulcer with clean dressing in place Ext: right lateral foot ulcer with clean dressing in place Lines:PIVs clean Results Labs 08/03/25 05:33 08/03/25 05:33 Labs: Short CBC 08/03/25 Range/Units 05:33 WBC 14.9 H (4.5-10.0) K/mm3 Hgb 11.2 L (14.0-18.0) g/dL Hct 37.0 L (42.0-52.0) % Plt Count 383 H (150-375) k/mm3 BMP 08/03/25 05:33 Sodium 133 L Potassium 3.6 Chloride 105 Carbon Dioxide 27 BUN 3 L Creatinine 0.50 L Glucose 111 H Calcium 7.7 L Liver Function 08/03/25 Range/Units 05:33 Total Bilirubin 0.3 (0.2-1.3) mg/dL AST 32 (17-59) U/L ALT 29 (6-50) U/L Alkaline Phosphatase 117 (38-126) U/L Albumin 2.2 L (3.5-5.1) g/dL
[2025-08-03] MEDS: MAGNESIUM CITRATE 300 ML BTL 150 ML PO (11:41)
[2025-08-03] MEDS: MIDODRINE HCL 2.5 MG TABLET 10 MG PO ×2 (11:59→16:55)
--- NOTE | 2025-08-03 14:44 | P.PNGS_ITS ---
Progress Note: A&P Assessment and Plan (1) Decubitus ulcer, infected: Code(s): L89.90 - Pressure ulcer of unspecified site, unspecified stage; L08.9 - Local infection of the skin and subcutaneous tissue, unspecified Status: Acute Assessment and Plan: * POD 7 s/p excisional debridement stage IV sacral decubitus ulcer * Continue local wound care with silver gel dressing changes daily for sacral wound. * Continue frequent turning/pressure offloading/elevated heels off bed * Continue antibiotics per ID (rec. 14 day course) (2) Sepsis: Code(s): A41.9 - Sepsis, unspecified organism Status: Acute Assessment and Plan: * Source likely related to decubitus ulcer vs UTI vs combination. Continue IV antibiotics * Blood cultures pending -preliminarily no growth (3) UTI (urinary tract infection): Code(s): N39.0 - Urinary tract infection, site not specified Status: Acute Assessment and Plan: * ID recommending to stop fluconazole with low suspicion of drew UTI (4) Multiple sclerosis: Code(s): G35 - Multiple sclerosis Status: Chronic (5) COPD (chronic obstructive pulmonary disease): Code(s): J44.9 - Chronic obstructive pulmonary disease, unspecified Status: Chronic (6) Right foot ulcer: Code(s): L97.519 - Non-pressure chronic ulcer of other part of right foot with unspecified severity Status: Acute Assessment and Plan: * Right lateral foot ulcer remains stable * Continue to elevate his heels off the bed * Continue local wound care with silver gel and Mepilex Plan Discussed patient's case and plan of care with Dr. Richardson. Subjective Subjective Date/Time Seen: 08/03/25 14:44 Post Op day: 7 (Sharp excisional debridement stage IV sacral decubitus ulcer) Interval history: No acute changes overnight. No complaints. WBC down to 14k. Exam Back/Spine/Pelvis: Other: Stage IV sacral decubitus ulcer with small area of yellow/de leon fibrous tissue over the sacrum and a small area of yellow superficial slough in the left side of the wound where there is undermining, no purulent drainage or odor. The remainder of the wound is pink (75%) with some granulating tissue. Objective Data Vital Signs Vital Signs: Vital Signs - 24 hr 08/02/25 16:45 08/02/25 20:00 08/02/25 22:00 Temperature 97.1 F L Pulse Rate 80 Respiratory Rate 18 Blood Pressure 95/48 L Pulse Oximetry 93 93 94 Oxygen Delivery Nasal Cannula Nasal Cannula Oxygen Flow Rate 2.5 2 08/03/25 06:00 08/03/25 08:00 08/03/25 08:25 Temperature 97.5 F L Pulse Rate 83 Respiratory Rate 18 Blood Pressure 97/48 L Pulse Oximetry 90 95 85 L Oxygen Delivery Nasal Cannula Nasal Cannula Oxygen Flow Rate 4 3 08/03/25 08:30 08/03/25 13:49 Temperature 97.8 F Pulse Rate 80 Respiratory Rate 18 Blood Pressure 110/64 Pulse Oximetry 90 94 Oxygen Delivery Nasal Cannula Oxygen Flow Rate 4 Intake/Output Intake/Output: Intake & Output 07/31/25 08/01/25 08/02/25 08/03/25 23:59 23:59 23:59 23:59 Intake Total 1880.8 2630 2431.7 Output Total 1250 1900 2650 1050 Balance 630.8 730 -218.3 -1050 Meds/Results Medications: Active Medications Generic Name Dose Route Start Last Admin Trade Name Freq PRN Reason Stop Dose Admin Acetaminophen 650 mg 08/02/25 16:13 Acetaminophen 325 Mg Tablet PO Q6H PRN Mild Pain (1-3) or Fever Albuterol/Ipratropium 3 ml 07/27/25 17:46 07/27/25 18:34 Ipratropium 0.5 Mg/Albuterol Sulfate 2.5 Mg Ampul.Neb 3 Ml INHALATION 3 ml Q6HRT PRN Administration Shortness Of Breath Ascorbic Acid 500 mg 07/29/25 09:00 08/03/25 08:40 Ascorbic Acid 500 Mg Tablet PO 500 mg DAILY MICAH Administration Cyanocobalamin 1,000 mcg 07/29/25 09:00 08/03/25 08:39 Cyanocobalamin 1,000 Mcg Tablet PO 1,000 mcg QAM MICAH Administration Dextrose 12.5 gm 07/26/25 22:31 Dextrose 50% 25 Gm/50 Ml Syringe IV PUSH PRN PRN Hypoglycemia Protocol Diphenhydramine HCl 25 mg 07/27/25 17:10 Diphenhydramine Hcl Inj 50 Mg/Ml Vial IV PUSH Q6H PRN Itching Fluticasone/Umeclidinium/Vilanterol 1 puff 07/27/25 08:00 08/03/25 08:25 Fluticasone/Umeclidin/Vilanter 100-62.5-25 Mcg Ellipta INHALATION 1 puff DAILYRT MICAH Administration Glucose 15 gm 07/26/25 22:31 Glucose Oral Gel 15 Gm Of Glucse In 37.5 Gm Tube PO PRN PRN Hypoglycemia Protocol Hydromorphone HCl 1 mg 07/27/25 17:10 Hydromorphone Hcl Inj (*Crx) 1 Mg/Ml Syr IV PUSH Q2H PRN Breakthrough Pain Rated 7-10 or NPO Hydromorphone HCl 0.5 mg 07/27/25 17:10 Hydromorphone Hcl Inj (*Crx) 1 Mg/Ml Syr IV PUSH Q2H PRN Breakthrough Pain Rated 4-6 or NPO Dextrose 1,000 mls @ 100 mls/hr 07/26/25 22:31 Dextrose 5% 1,000 Ml IVPB PRN PRN Hypoglycemia Protocol Levofloxacin/Dextrose 750 mg in 150 mls @ 100 mls/hr 08/01/25 12:30 08/03/25 08:40 Levaquin 750 Mg/D5w 150 Ml IVPB 100 mls/hr DAILY MICAH Administration Lactulose 20 gm 08/01/25 17:00 08/03/25 08:39 Lactulose 20 Gm/30 Ml Udc PO 20 gm BID MICAH Administration Linezolid 600 mg 08/01/25 12:00 08/03/25 08:40 Linezolid 600 Mg Tablet PO 600 mg Q12HR MICAH Administration Metronidazole 500 mg 07/29/25 22:00 08/03/25 13:29 Metronidazole 500 Mg Tablet PO 500 mg Q8HR MICAH Administration Midodrine 10 mg 08/03/25 13:00 08/03/25 11:59 Midodrine Hcl 2.5 Mg Tablet PO 10 mg TID MICAH Administration Montelukast Sodium 10 mg 07/28/25 21:00 08/02/25 20:02 Montelukast Sodium 10 Mg Tablet PO 10 mg HS MICAH Administration Multi-Ingred Cream/Lotion/Oil/Oint 1 applic 07/31/25 17:45 08/03/25 08:40 Eucerin Cream 120 Gm Jar TOPICAL 1 applic DAILY MICAH Administration Naloxone HCl 0.1 mg 07/27/25 17:10 Naloxone Hcl 0.4 Mg/Ml Vial IV PUSH Q2M PRN Opiate Reversal Ondansetron HCl 4 mg 07/27/25 17:10 08/02/25 10:16 Ondansetron Inj 4 Mg/2 Ml Vial IV PUSH 4 mg Q4H PRN Administration Nausea And Vomiting Perflutren Lipid Microsphere 0 ml 08/03/25 11:00 Perflutren Lipid Microspheres 1.5 Ml Vial Diluted To 10 Ml Total Volume IV PUSH 08/06/25 11:01 ONCE PRN adequate visualization Protocol Rivaroxaban 10 mg 07/29/25 17:00 08/02/25 17:17 Rivaroxaban 10 Mg Tablet PO 10 mg 1700 MICAH Administration Vitamin D 25 mcg 07/29/25 09:00 08/03/25 08:40 Cholecalciferol (Vitamin D3) 25 Mcg (1,000 Units) Tablet PO 25 mcg DAILY MICAH Administration Radiology Results: ITS Impressions Abdomen/Pelvis CT 07/26/25 18:25 IMPRESSION: 1. Small focal ulceration with mild inflammatory change involving the posterior soft tissues just below the coccyx. No drainable fluid collection identified. 2: Moderately distended small bowel and colon with air-fluid levels, consistent with ileus. Head CT 07/27/25 08:07 IMPRESSION: 1. Age-related changes including mild to moderate diffuse volume loss and moderate scattered white matter hypoattenuation consistent with chronic small vessel ischemic disease. No acute intracranial process. Chest X-Ray 07/31/25 13:21 IMPRESSION: 1. Left basilar atelectasis and/or airspace disease. 2. Small left effusion not excluded. 3. Suspect developing mild interstitial pulmonary edema. Abdomen X-Ray 08/02/25 18:50 IMPRESSION: 1. No acute findings. 2. No increased stool burden to suggest large volume constipation. Labs Labs: Laboratory Results - last 24 hr 08/03/25 05:33 WBC 14.9 H RBC 3.87 L Hgb 11.2 L Hct 37.0 L MCV 95.6 MCH 28.9 MCHC 30.3 L RDW 14.7 H Plt Count 383 H MPV 9.6 Immature Gran % (Auto) 3.0 H Neut % (Auto) 64.9 Lymph % (Auto) 19.7 [place] % (Auto) 8.1 Eos % (Auto) 3.8 Baso % (Auto) 0.5 Lymph # (Auto) 2.93 [place] # (Auto) 1.2 H Eos # (Auto) 0.6 H Baso # (Auto) 0.1 Abs Immat Gran (auto) 0.44 H Absolute Neuts (auto) 9.7 H Absolute Nucleated RBC 0.000 Nucleated RBC % 0.0 Sodium 133 L Potassium 3.6 Chloride 105 Carbon Dioxide 27 Anion Gap 1 L BUN 3 L Creatinine 0.50 L Estim Creat Clear Calc 117 Estimated GFR > 60 Glucose 111 H Calcium 7.7 L Magnesium 1.8 Total Bilirubin 0.3 AST 32 ALT 29 Alkaline Phosphatase 117 Total Protein 4.9 L Albumin 2.2 L
[2025-08-03] MEDS: RIVAROXABAN 10 MG TABLET PO (16:54)
[2025-08-03] MEDS: MONTELUKAST SODIUM 10 MG TABLET PO (21:15)
--- NOTE | 2025-08-04 | ECHO_ITS ---
Patient Info Name: Bashir Gruber Age: 69 years : 1955 Gender: Male Ht: 71 in Wt: 151 lbs BSA: 1.85 m2 HR: 68 bpm BP: 94 / 50 mmHg Technical Quality: Good Exam Date: 08/04/2025 1:29 PM Patient Status: I Admit Date: 07/26/2025 Exam Type: CA echo doppler color flow Complete two-dimensional, color flow and Doppler transthoracic echocardiogram is performed. Staff Referring Physician: Debbie Benz Voltage Inspector: Cameron Schmitz III Attending Provider: Arcadio Chatman Summary 1. Complete two-dimensional, color flow and Doppler transthoracic echocardiogram is performed. 2. Left ventricular chamber dimension is normal. 3. Left ventricular systolic function is normal, estimated at 60-65. 4. The left ventricular diastolic function is grade I diastolic dysfunction. 5. E/e' 4 is not elevated. 6. There is trace tricuspid valve regurgitation. Left Ventricle E/e' 4 is not elevated. Left ventricular chamber dimension is normal. Left ventricular systolic function is normal, estimated at 60-65. The left ventricular diastolic function is grade I diastolic dysfunction. Right Ventricle Right ventricular chamber dimension is normal. Right ventricular systolic function is normal and with normal TAPSE 1.8 cm. Left Atria Left atrial chamber dimension is normal. Right Atria Right atrial chamber dimension is normal. Aortic Valve The aortic valve is trileaflet. There is no aortic valve stenosis. There is no aortic valve regurgitation. Pulmonic Valve There is no pulmonic regurgitation. Mitral Valve There is no mitral valve stenosis. There is no mitral valve regurgitation. Tricuspid Valve There is trace tricuspid valve regurgitation. RVSP is not measured due to an inadequate TR jet. Pericardium/Pleural There is no pericardial effusion. Inferior Vena Cava Normal inferior vena cava with >50% collapse upon inspiration consistent with normal right atrial pressure, 5 mmHg. Aorta The aortic root size at the sinus of Valsalva is normal. Left Ventricular Outflow Tract Name Value Normal LVOT 2D LVOT Diameter 2.3 cm LVOT Doppler LVOT Peak Velocity 118 cm/s LVOT Peak Gradient 6 mmHg LVOT Mean Gradient 3 mmHg LVOT VTI 22 cm LVOT VTI/AV VTI Ratio 0.9 LVOT Stroke Volume 92 ml LVOT CO 8.2 l/min LVOT CI 4.5 l/min/m2 Pulmonic Valve Name Value Normal PV Doppler PV Peak Velocity 87 cm/s PV Peak Gradient 3 mmHg PV Mean Gradient 2 mmHg Mitral Valve Name Value Normal MV Doppler MV Peak Gradient 2 mmHg MV Mean Gradient 1 mmHg MV Area (Cont Eq VTI) 5.1 cm2 MV Diastolic Function MV E Peak Velocity 66 cm/s MV A Peak Velocity 73 cm/s MV E/A 0.9 MV Decel Time (PW) 256 ms MV Annular TDI MV E/e' (Septal) 4.5 MV E/e' (Lateral) 3.9 MV E/e' (Average) 4.2 Tricuspid Valve Name Value Normal Estimated PAP/RSVP RA Pressure 5 mmHg <=5 TV Annular TDI TV Lateral Letty s' Velocity 16.4 cm/s >=9.5 Aortic Valve Name Value Normal AV Doppler AV Peak Velocity 141 cm/s AV Peak Gradient 8 mmHg AV Mean Gradient 4 mmHg AV VTI 23 cm AV Area (Cont Eq VTI) 4.0 cm2 >=3.0 AV Area (Cont Eq Pablo) 3.5 cm2 AV DI (Pablo) 0.84 AV Regurgitation 2D LVOT Area 4.2 cm2 Ventricles Name Value Normal LV Dimensions 2D/MM IVS Diastolic Thickness (2D) 1.0 cm 0.6-1.0 LVID Diastole (2D) 4.1 cm 4.2-5.8 LVIW Diastolic Thickness (2D) 0.9 cm 0.6-1.0 LVID Systole (2D) 2.6 cm 2.5-4.0 LVOT Diameter 2.3 cm LV Mass (2D Cubed) 121.28 g 88.00-224.00 LV Mass Index (2D Cubed) 66 g/m2 49-115 Relative Wall Thickness (2D) 0.44 <=0.42 LV Fractional Shortening/Ejection Fraction 2D/MM LV Fractional Shortening (2D) 35 % 25-43 LV EF (2D Teichholz) 65 % LV Diastolic Volume (4C MOD) 71 ml LV EF (4C MOD) 65 % LV Diastolic Volume (2C MOD) 53 ml LV EF (2C MOD) 67 % LV Diastolic Volume (BP MOD) 62 ml 62-150 LV Diastolic Volume Index (BP MOD) 34 ml/m2 34-74 LV Systolic Volume (BP MOD) 22 ml 21-61 LV Systolic Volume Index (BP MOD) 12 ml/m2 11-31 LV EF (BP MOD) 65 % 52-72 LV Diastolic Length (4C) 7.7 cm LV Systolic Length (4C) 6.0 cm LV Stroke Volume (4C MOD) 46 ml Atria Name Value Normal LA Dimensions LA Volume (4C A-L) 43 ml LA Volume (BP A-L) 47 ml RA Dimensions RA Systolic [place] Length (4C) 4.5 cm 2.1-2.7 RA Area (4C) 12.1 cm2 <=18.0 Report Signatures
[2025-08-04 05:57] LABS: Hematocrit 35.5 % (42.0-52.0); Hemoglobin 10.7 g/dL (14.0-18.0); Immature Granulocyte Percent A 2.1 % (0-0.5); Lymphocytes Absolute Auto 3.13 K/mm3 (0.9-3.2); Mean Corpuscular HGB Conc 30.1 g/dl (32-36); Mean Corpuscular Hemoglobin 28.8 pg (26-34); Mean Corpuscular Volume 95.7 fl (80-100); Nucleated Red Blood Cells Absolute Auto 0.000 K/mm3 (0.0-0.012); Nucleated Red Blood Cells Perc 0.0 % (0.0-0.2); Platelet Count Result 345 k/mm3 (150-375); Red Blood Count 3.71 M/mm3 (4.6-6.20); White Blood Count 14.0 K/mm3 (4.5-10.0)
[2025-08-04 06:00] VITALS: BP 98/54; PULSE 73; RESP 16; TEMP 36.6; O2SAT 93
[2025-08-04 06:27] LABS: Alanine Aminotransferase 141 U/L (6-50); Albumin Level 2.2 g/dL (3.5-5.1); Alkaline Phosphatase 389 U/L (38-126); Anion Gap 0 mmol/L (4-12); Aspartate Amino Transferase 203 U/L (17-59); Bilirubin,Total 0.3 mg/dL (0.2-1.3); Blood Urea Nitrogen 4 mg/dL (9-20); Calcium 7.8 mg/dL (8.4-10.2); Carbon Dioxide 28 mmol/L (22-30); Chloride 105 mmol/L (98-107); Estimated CRCL calculation 120 ml/min; Estimated Glomerular Filt Rate > 60; Glucose 120 mg/dL (65-110); Magnesium 2.1 mg/dL (1.6-2.3); Potassium 3.9 mmol/L (3.4-5.0); Sodium 133 mmol/L (137-145); Total Protein 4.9 g/dL (6.3-8.2)
[2025-08-04 06:33] LABS: NT Pro B Type Natriuretic Pept 259 pg/mL (19.9-100)
[2025-08-04 08:00] VITALS: O2SAT 93
--- NOTE | 2025-08-04 08:57 | WPDINFPN2 ---
Progress Note: A&P Assessment and Plan (1) Decubitus ulcer, infected: Code(s): L89.90 - Pressure ulcer of unspecified site, unspecified stage; L08.9 - Local infection of the skin and subcutaneous tissue, unspecified Status: Acute (2) Leukocytosis: Code(s): D72.829 - Elevated white blood cell count, unspecified Status: Acute (3) Right foot ulcer: Code(s): L97.519 - Non-pressure chronic ulcer of other part of right foot with unspecified severity Status: Acute (4) Multiple sclerosis: Code(s): G35 - Multiple sclerosis Status: Chronic Plan [facility] [address] [place] [address] Infectious Disease Consult Signed Patient: Bashir Gruber Sr. MR#: [id number] : 1955 Acct:[id number] Age: 69 ADM Date: 07/26/25 Loc: [id number] 306-01 Assessment and Plan Assessment and plan (1) Decubitus ulcer, infected: Code(s): L89.90 - Pressure ulcer of unspecified site, unspecified stage; L08.9 - Local infection of the skin and subcutaneous tissue, unspecified Status: Acute Assessment and Plan: Patient with stage 4 sacral pressure ulcer s/p debridement. No obvious evidence of osteomyelitis presently (2) Right foot ulcer: Code(s): L97.519 - Non-pressure chronic ulcer of other part of right foot with unspecified severity Status: Acute Assessment and Plan: Management as per primary service (3) UTI (urinary tract infection): Code(s): N39.0 - Urinary tract infection, site not specified Status: Acute Assessment and Plan: Patient without symptoms of UTI Candiduria not likely to be pathogenic presently (4) Multiple sclerosis: Code(s): G35 - Multiple sclerosis Status: Chronic Assessment and Plan: Management as per priimary service Plan -Continue oral Linezolid/Levofloxacin/Metronidazole x 14 day course for treatment of sacral pressure ulcer infection (end of therapy 08/14/25) -Discontinued Fluconazole on 08/03/25 as overall low suspicion for Nehal UTI presently -Continue offloading ulcers and local wound care Antimicrobial plan of care discussed with patient. All questions answered. ID service will follow peripherally at this time. Please notify ID service if acute re-evaluation requested. Patient was seen via video telehealth consultation with the assistance of staff. Chart, data, and patient independently reviewed. Patient was located at [facility] while I was located in my [place] office. Received verbal consent from patient. Subjective Date/time seen: 08/04/25 08:57 Interval history: Patient afebrile. Denies new symptoms. No pain at pressure ulcer site. Review of Systems Review of Systems: All systems reviewed & are unremarkable except as noted in HPI and below Exam Narrative: Gen: A&O, NAD Pulm:on supplemental oxygen, mild conversational dyspnea Abd: soft : sacral pressure ulcer with clean dressing in place Ext: right lateral foot ulcer with clean dressing in place Lines:PIVs clean Objective Data Vital Signs Vital Signs: Vital Signs - 24 hr 08/03/25 13:49 08/03/25 20:00 08/03/25 22:27 Temperature 97.8 F 97.0 F L Pulse Rate 80 68 Respiratory Rate 18 18 Blood Pressure 110/64 94/50 L Pulse Oximetry 94 96 98 Oxygen Delivery Nasal Cannula Oxygen Flow Rate 3 08/04/25 06:00 Temperature 97.9 F Pulse Rate 73 Respiratory Rate 16 Blood Pressure 98/54 L Pulse Oximetry 93 Oxygen Delivery Oxygen Flow Rate Intake/Output Intake/Output: Intake & Output 08/01/25 08/02/25 08/03/25 08/04/25 23:59 23:59 23:59 23:59 Intake Total 2630 2431.7 297 200 Output Total 1900 2650 1775 800 Balance 730 -218.3 -1478 -600 Meds/Results Medications: Active Medications Generic Name Dose Route Start Last Admin Trade Name Freq PRN Reason Stop Dose Admin Acetaminophen 650 mg 08/02/25 16:13 Acetaminophen 325 Mg Tablet PO Q6H PRN Mild Pain (1-3) or Fever Albuterol/Ipratropium 3 ml 07/27/25 17:46 07/27/25 18:34 Ipratropium 0.5 Mg/Albuterol Sulfate 2.5 Mg Ampul.Neb 3 Ml INHALATION 3 ml Q6HRT PRN Administration Shortness Of Breath Ascorbic Acid 500 mg 07/29/25 09:00 08/03/25 08:40 Ascorbic Acid 500 Mg Tablet PO 500 mg DAILY MICAH Administration Cyanocobalamin 1,000 mcg 07/29/25 09:00 08/03/25 08:39 Cyanocobalamin 1,000 Mcg Tablet PO 1,000 mcg QAM MICAH Administration Dextrose 12.5 gm 07/26/25 22:31 Dextrose 50% 25 Gm/50 Ml Syringe IV PUSH PRN PRN Hypoglycemia Protocol Diphenhydramine HCl 25 mg 07/27/25 17:10 Diphenhydramine Hcl Inj 50 Mg/Ml Vial IV PUSH Q6H PRN Itching Fluticasone/Umeclidinium/Vilanterol 1 puff 07/27/25 08:00 08/03/25 08:25 Fluticasone/Umeclidin/Vilanter 100-62.5-25 Mcg Ellipta INHALATION 1 puff DAILYRT MICAH Administration Glucose 15 gm 07/26/25 22:31 Glucose Oral Gel 15 Gm Of Glucse In 37.5 Gm Tube PO PRN PRN Hypoglycemia Protocol Hydromorphone HCl 1 mg 07/27/25 17:10 Hydromorphone Hcl Inj (*Crx) 1 Mg/Ml Syr IV PUSH Q2H PRN Breakthrough Pain Rated 7-10 or NPO Hydromorphone HCl 0.5 mg 07/27/25 17:10 Hydromorphone Hcl Inj (*Crx) 1 Mg/Ml Syr IV PUSH Q2H PRN Breakthrough Pain Rated 4-6 or NPO Dextrose 1,000 mls @ 100 mls/hr 07/26/25 22:31 Dextrose 5% 1,000 Ml IVPB PRN PRN Hypoglycemia Protocol Lactulose 20 gm 08/01/25 17:00 08/03/25 16:55 Lactulose 20 Gm/30 Ml Udc PO 20 gm BID MICAH Administration Levofloxacin 750 mg 08/04/25 09:00 Levofloxacin 750 Mg Tablet PO 08/14/25 09:01 DAILY MICAH Linezolid 600 mg 08/01/25 12:00 08/03/25 21:15 Linezolid 600 Mg Tablet PO 08/14/25 21:01 600 mg Q12HR MICAH Administration Metronidazole 500 mg 07/29/25 22:00 08/04/25 05:44 Metronidazole 500 Mg Tablet PO 08/14/25 22:01 500 mg Q8HR MICAH Administration Midodrine 10 mg 08/03/25 13:00 08/03/25 16:55 Midodrine Hcl 2.5 Mg Tablet PO 10 mg TID MICAH Administration Montelukast Sodium 10 mg 07/28/25 21:00 08/03/25 21:15 Montelukast Sodium 10 Mg Tablet PO 10 mg HS MICAH Administration Multi-Ingred Cream/Lotion/Oil/Oint 1 applic 07/31/25 17:45 08/03/25 08:40 Eucerin Cream 120 Gm Jar TOPICAL 1 applic DAILY MICAH Administration Naloxone HCl 0.1 mg 07/27/25 17:10 Naloxone Hcl 0.4 Mg/Ml Vial IV PUSH Q2M PRN Opiate Reversal Ondansetron HCl 4 mg 07/27/25 17:10 08/02/25 10:16 Ondansetron Inj 4 Mg/2 Ml Vial IV PUSH 4 mg Q4H PRN Administration Nausea And Vomiting Perflutren Lipid Microsphere 0 ml 08/03/25 11:00 Perflutren Lipid Microspheres 1.5 Ml Vial Diluted To 10 Ml Total Volume IV PUSH 08/06/25 11:01 ONCE PRN adequate visualization Protocol Rivaroxaban 10 mg 07/29/25 17:00 08/03/25 16:54 Rivaroxaban 10 Mg Tablet PO 10 mg 1700 MICAH Administration Vitamin D 25 mcg 07/29/25 09:00 08/03/25 08:40 Cholecalciferol (Vitamin D3) 25 Mcg (1,000 Units) Tablet PO 25 mcg DAILY MICAH Administration Radiology Results: ITS Impressions Abdomen/Pelvis CT 07/26/25 18:25 IMPRESSION: 1. Small focal ulceration with mild inflammatory change involving the posterior soft tissues just below the coccyx. No drainable fluid collection identified. 2: Moderately distended small bowel and colon with air-fluid levels, consistent with ileus. Head CT 07/27/25 08:07 IMPRESSION: 1. Age-related changes including mild to moderate diffuse volume loss and moderate scattered white matter hypoattenuation consistent with chronic small vessel ischemic disease. No acute intracranial process. Chest X-Ray 07/31/25 13:21 IMPRESSION: 1. Left basilar atelectasis and/or airspace disease. 2. Small left effusion not excluded. 3. Suspect developing mild interstitial pulmonary edema. Abdomen X-Ray 08/02/25 18:50 IMPRESSION: 1. No acute findings. 2. No increased stool burden to suggest large volume constipation. Labs Labs: Laboratory Results - last 24 hr 08/04/25 05:35 WBC 14.0 H RBC 3.71 L Hgb 10.7 L Hct 35.5 L MCV 95.7 MCH 28.8 MCHC 30.1 L RDW 15.1 H Plt Count 345 MPV 9.6 Immature Gran % (Auto) 2.1 H Neut % (Auto) 63.7 Lymph % (Auto) 22.3 [place] % (Auto) 8.2 Eos % (Auto) 3.1 Baso % (Auto) 0.6 Lymph # (Auto) 3.13 [place] # (Auto) 1.2 H Eos # (Auto) 0.4 H Baso # (Auto) 0.1 Abs Immat Gran (auto) 0.30 H Absolute Neuts (auto) 8.9 H Absolute Nucleated RBC 0.000 Nucleated RBC % 0.0 Sodium 133 L Potassium 3.9 Chloride 105 Carbon Dioxide 28 Anion Gap 0 L BUN 4 L Creatinine 0.51 L Estim Creat Clear Calc 120 Estimated GFR > 60 Glucose 120 H Calcium 7.8 L Magnesium 2.1 Total Bilirubin 0.3 AST 203 H ALT 141 H Alkaline Phosphatase 389 H NT-Pro-B Natriuret Pep 259 H Total Protein 4.9 L Albumin 2.2 L
[2025-08-04] MEDS: LINEZOLID 600 MG TABLET PO ×2 (09:56→21:42)
[2025-08-04] MEDS: CYANOCOBALAMIN 1,000 MCG TABLET 1000 MCG PO (09:56)
[2025-08-04] MEDS: MIDODRINE HCL 2.5 MG TABLET 10 MG PO ×3 (09:56→18:30)
[2025-08-04] MEDS: CHOLECALCIFEROL (VITAMIN D3) 25 MCG (1,000 UNITS) TABLET PO (09:56)
[2025-08-04] MEDS: ASCORBIC ACID 500 MG TABLET PO (09:56)
[2025-08-04] MEDS: EUCERIN CREAM 120 GM JAR 1 APPLIC TOPICAL (09:57)
[2025-08-04] MEDS: LACTULOSE 20 GM/30 ML UDC PO ×2 (11:44→18:30)
--- NOTE | 2025-08-04 12:13 | P.PNGS_ITS ---
Progress Note: A&P Assessment and Plan (1) Decubitus ulcer, infected: Code(s): L89.90 - Pressure ulcer of unspecified site, unspecified stage; L08.9 - Local infection of the skin and subcutaneous tissue, unspecified Status: Acute Assessment and Plan: * POD 7 s/p excisional debridement stage IV sacral decubitus ulcer. We will see patient on a PRN basis. * Continue local wound care with silver gel dressing changes daily for sacral wound. Silver gel to right lateral foot wound. * Continue frequent turning/pressure offloading/elevated heels off bed * Continue antibiotics per ID (rec. 14 day course) (2) Sepsis: Code(s): A41.9 - Sepsis, unspecified organism Status: Acute Assessment and Plan: * Source likely related to decubitus ulcer vs UTI vs combination. Continue IV antibiotics * Blood cultures pending -preliminarily no growth (3) UTI (urinary tract infection): Code(s): N39.0 - Urinary tract infection, site not specified Status: Acute Assessment and Plan: * ID recommending to stop fluconazole with low suspicion of drew UTI (4) Multiple sclerosis: Code(s): G35 - Multiple sclerosis Status: Chronic (5) COPD (chronic obstructive pulmonary disease): Code(s): J44.9 - Chronic obstructive pulmonary disease, unspecified Status: Chronic (6) Right foot ulcer: Code(s): L97.519 - Non-pressure chronic ulcer of other part of right foot with unspecified severity Status: Acute Assessment and Plan: * Right lateral foot ulcer remains stable * Continue to elevate his heels off the bed * Continue local wound care with silver gel and Mepilex Plan Discussed patient's case and plan of care with Dr. Richardson. Subjective Subjective Date/Time Seen: 08/04/25 12:13 Patient reports: no new complaints, tolerating a regular diet and no bowel movement Interval history: Patient doing well today. No new complaints. Still no BM. Does not complain of nausea or vomiting today. Had bottle of mag citrate yesterday. Exam Const: General: comfortable and no acute distress Back/Spine/Pelvis: Other: Stage IV sacral decubitus ulcer with small area of yellow/de leon fibrous tissue over the sacrum and a small area of yellow superficial slough in the left side of the wound where there is undermining, no purulent drainage or odor. The remainder of the wound is pink (75%) with some granulating tissue. Objective Data Vital Signs Vital Signs: Vital Signs - 24 hr 08/03/25 13:49 08/03/25 20:00 08/03/25 22:27 Temperature 97.8 F 97.0 F L Pulse Rate 80 68 Respiratory Rate 18 18 Blood Pressure 110/64 94/50 L Pulse Oximetry 94 96 98 Oxygen Delivery Nasal Cannula Oxygen Flow Rate 3 08/04/25 06:00 Temperature 97.9 F Pulse Rate 73 Respiratory Rate 16 Blood Pressure 98/54 L Pulse Oximetry 93 Oxygen Delivery Oxygen Flow Rate Intake/Output Intake/Output: Intake & Output 08/01/25 08/02/25 08/03/25 08/04/25 23:59 23:59 23:59 23:59 Intake Total 2630 2431.7 297 200 Output Total 1900 2650 1775 800 Balance 730 -218.3 -1478 -600 Meds/Results Medications: Active Medications Generic Name Dose Route Start Last Admin Trade Name Freq PRN Reason Stop Dose Admin Acetaminophen 650 mg 08/02/25 16:13 Acetaminophen 325 Mg Tablet PO Q6H PRN Mild Pain (1-3) or Fever Albuterol/Ipratropium 3 ml 07/27/25 17:46 07/27/25 18:34 Ipratropium 0.5 Mg/Albuterol Sulfate 2.5 Mg Ampul.Neb 3 Ml INHALATION 3 ml Q6HRT PRN Administration Shortness Of Breath Ascorbic Acid 500 mg 07/29/25 09:00 08/04/25 09:56 Ascorbic Acid 500 Mg Tablet PO 500 mg DAILY MICAH Administration Cyanocobalamin 1,000 mcg 07/29/25 09:00 08/04/25 09:56 Cyanocobalamin 1,000 Mcg Tablet PO 1,000 mcg QAM MICAH Administration Dextrose 12.5 gm 07/26/25 22:31 Dextrose 50% 25 Gm/50 Ml Syringe IV PUSH PRN PRN Hypoglycemia Protocol Diphenhydramine HCl 25 mg 07/27/25 17:10 Diphenhydramine Hcl Inj 50 Mg/Ml Vial IV PUSH Q6H PRN Itching Fluticasone/Umeclidinium/Vilanterol 1 puff 07/27/25 08:00 08/03/25 08:25 Fluticasone/Umeclidin/Vilanter 100-62.5-25 Mcg Ellipta INHALATION 1 puff DAILYRT MICAH Administration Glucose 15 gm 07/26/25 22:31 Glucose Oral Gel 15 Gm Of Glucse In 37.5 Gm Tube PO PRN PRN Hypoglycemia Protocol Hydromorphone HCl 1 mg 07/27/25 17:10 Hydromorphone Hcl Inj (*Crx) 1 Mg/Ml Syr IV PUSH Q2H PRN Breakthrough Pain Rated 7-10 or NPO Hydromorphone HCl 0.5 mg 07/27/25 17:10 Hydromorphone Hcl Inj (*Crx) 1 Mg/Ml Syr IV PUSH Q2H PRN Breakthrough Pain Rated 4-6 or NPO Dextrose 1,000 mls @ 100 mls/hr 07/26/25 22:31 Dextrose 5% 1,000 Ml IVPB PRN PRN Hypoglycemia Protocol Lactulose 20 gm 08/01/25 17:00 08/04/25 11:44 Lactulose 20 Gm/30 Ml Udc PO 20 gm BID MICAH Administration Levofloxacin 750 mg 08/04/25 09:00 08/04/25 09:56 Levofloxacin 750 Mg Tablet PO 08/14/25 09:01 750 mg DAILY MICAH Administration Linezolid 600 mg 08/01/25 12:00 08/04/25 09:56 Linezolid 600 Mg Tablet PO 08/14/25 21:01 600 mg Q12HR MICAH Administration Metronidazole 500 mg 07/29/25 22:00 08/04/25 05:44 Metronidazole 500 Mg Tablet PO 08/14/25 22:01 500 mg Q8HR MICAH Administration Midodrine 10 mg 08/03/25 13:00 08/04/25 09:56 Midodrine Hcl 2.5 Mg Tablet PO 10 mg TID MICAH Administration Montelukast Sodium 10 mg 07/28/25 21:00 08/03/25 21:15 Montelukast Sodium 10 Mg Tablet PO 10 mg HS MICAH Administration Multi-Ingred Cream/Lotion/Oil/Oint 1 applic 07/31/25 17:45 08/04/25 09:57 Eucerin Cream 120 Gm Jar TOPICAL 1 applic DAILY MICAH Administration Naloxone HCl 0.1 mg 07/27/25 17:10 Naloxone Hcl 0.4 Mg/Ml Vial IV PUSH Q2M PRN Opiate Reversal Ondansetron HCl 4 mg 07/27/25 17:10 08/02/25 10:16 Ondansetron Inj 4 Mg/2 Ml Vial IV PUSH 4 mg Q4H PRN Administration Nausea And Vomiting Perflutren Lipid Microsphere 0 ml 08/03/25 11:00 Perflutren Lipid Microspheres 1.5 Ml Vial Diluted To 10 Ml Total Volume IV PUSH 08/06/25 11:01 ONCE PRN adequate visualization Protocol Rivaroxaban 10 mg 07/29/25 17:00 08/03/25 16:54 Rivaroxaban 10 Mg Tablet PO 10 mg 1700 MICAH Administration Vitamin D 25 mcg 07/29/25 09:00 08/04/25 09:56 Cholecalciferol (Vitamin D3) 25 Mcg (1,000 Units) Tablet PO 25 mcg DAILY MICAH Administration Radiology Results: ITS Impressions Abdomen/Pelvis CT 07/26/25 18:25 IMPRESSION: 1. Small focal ulceration with mild inflammatory change involving the posterior soft tissues just below the coccyx. No drainable fluid collection identified. 2: Moderately distended small bowel and colon with air-fluid levels, consistent with ileus. Head CT 07/27/25 08:07 IMPRESSION: 1. Age-related changes including mild to moderate diffuse volume loss and moderate scattered white matter hypoattenuation consistent with chronic small vessel ischemic disease. No acute intracranial process. Chest X-Ray 07/31/25 13:21 IMPRESSION: 1. Left basilar atelectasis and/or airspace disease. 2. Small left effusion not excluded. 3. Suspect developing mild interstitial pulmonary edema. Abdomen X-Ray 08/02/25 18:50 IMPRESSION: 1. No acute findings. 2. No increased stool burden to suggest large volume constipation. Labs Labs: Laboratory Results - last 24 hr 08/04/25 05:35 WBC 14.0 H RBC 3.71 L Hgb 10.7 L Hct 35.5 L MCV 95.7 MCH 28.8 MCHC 30.1 L RDW 15.1 H Plt Count 345 MPV 9.6 Immature Gran % (Auto) 2.1 H Neut % (Auto) 63.7 Lymph % (Auto) 22.3 [place] % (Auto) 8.2 Eos % (Auto) 3.1 Baso % (Auto) 0.6 Lymph # (Auto) 3.13 [place] # (Auto) 1.2 H Eos # (Auto) 0.4 H Baso # (Auto) 0.1 Abs Immat Gran (auto) 0.30 H Absolute Neuts (auto) 8.9 H Absolute Nucleated RBC 0.000 Nucleated RBC % 0.0 Sodium 133 L Potassium 3.9 Chloride 105 Carbon Dioxide 28 Anion Gap 0 L BUN 4 L Creatinine 0.51 L Estim Creat Clear Calc 120 Estimated GFR > 60 Glucose 120 H Calcium 7.8 L Magnesium 2.1 Total Bilirubin 0.3 AST 203 H ALT 141 H Alkaline Phosphatase 389 H NT-Pro-B Natriuret Pep 259 H Total Protein 4.9 L Albumin 2.2 L
--- NOTE | 2025-08-04 13:06 | P.PNIM_ITS ---
Progress Note: A&P Assessment and Plan (1) Hypertension: Code(s): I10 - Essential (primary) hypertension Status: Acute (2) Ileus: Code(s): K56.7 - Ileus, unspecified Status: Acute (3) Leukocytosis: Code(s): D72.829 - Elevated white blood cell count, unspecified Status: Acute (4) Sepsis: Code(s): A41.9 - Sepsis, unspecified organism Status: Acute (5) Right foot ulcer: Code(s): L97.519 - Non-pressure chronic ulcer of other part of right foot with unspecified severity Status: Acute (6) Decubitus ulcer, infected: Code(s): L89.90 - Pressure ulcer of unspecified site, unspecified stage; L08.9 - Local infection of the skin and subcutaneous tissue, unspecified Status: Acute (7) Altered mental status: Code(s): R41.82 - Altered mental status, unspecified Status: Acute (8) COPD (chronic obstructive pulmonary disease): Code(s): J44.9 - Chronic obstructive pulmonary disease, unspecified Status: Chronic (9) Acute respiratory distress: Code(s): R06.03 - Acute respiratory distress Status: Acute Plan 69-year-old [facility] presents with altered mental status, He has a decubitus ulcer to the sacrum and left heel, right lateral foot with some purulence.General Surgery was consulted.s/p Sharp excisional debridement stage IV sacral decubitus ulcer including skin, subcutaneous fat, muscle, and fascia/tendon measuring 15 cm x 8 cm. (1) Sepsis: Likely secondary to a UTI or decubitus ulcer to sacrum Chest x-ray was clear Influenza, asthma, COVID were negative He was initially started on cefepime vancomycin and metronidazole. Currently he is on Zyvox, Levaquin, Flagyl Still has leukocytosis, fluctuating Appreciate ID help Local wound care as per surgery recommendation Blood pressure remains soft Continue with midodrine Fluconazole has been stopped as urine culture was growing Nehal as per ID recommendation Patient has chronic indwelling catheter (2) Acute respiratory distress: Continues to be on 4 L of O2 support ? Unclear etiology Blood pressure remains soft, will not tolerate Lasix Already on Xarelto, unlikely to be PE But will get CTA chest to rule out PE Elevated BNP Obtain echocardiogram (3) Altered mental status: Head CT showing age-related changes including mild-moderate diffuse volume loss and moderate scattered white matter hypoattenuation consistent with chronic small-vessel ischemic disease but no acute findings. Ammonia level negative. TSH normal. UDS negative. B12 level low at 231. Folate normal. Vit D <12.8. Likely has metabolic encephalopathy due to UTI, sacral infection, B12 and VitD deficiency Symptoms improving. Fall precautions. c/w B12 and VitD (4) Ileus: Ileus -CT scan showed probable ileus related to sepsis. Serial exams and Abdominal x-rays showing ileus has resolved. Constipation Continue with lactulose (5) Multiple sclerosis: Patient on interferon prior to admission. Mental status improving. Neurology following Resume Interferon when infection better controlled. Monitor mental status. (6) COPD (chronic obstructive pulmonary disease): No wheezing appreciated but he remains on oxygen. Continue Trelegy. Albuterol p.r.n.. Obtain echocardiogram obtain CTA chest 7. Code status: Full 8. DVT prophylaxis: Xarelto 9. Disposition: Pending improvement Time Spent With Patient Time: 39 minutes Subjective Date/time seen: 08/04/25 13:06 Interval history: No acute events overnight Review of Systems Review of Systems: All systems reviewed & are unremarkable except as noted in HPI and below Exam Narrative: Gen - No acute distress Chest -B/L decreased breath sounds B/L CV - normal sinus rhythm Abd -soft, non tender, BS+ Ext - 1+ pedal edema. Neuro - alert Psych - depressed mood Skin - Warm and dry. Right lateral foot, bilateral heel, and right hip and sacral area dressings are clean, dry and intact. Objective Data Vital Signs Vital Signs: Vital Signs - 24 hr 08/03/25 13:49 08/03/25 20:00 08/03/25 22:27 Temperature 97.8 F 97.0 F L Pulse Rate 80 68 Respiratory Rate 18 18 Blood Pressure 110/64 94/50 L Pulse Oximetry 94 96 98 Oxygen Delivery Nasal Cannula Oxygen Flow Rate 3 08/04/25 06:00 Temperature 97.9 F Pulse Rate 73 Respiratory Rate 16 Blood Pressure 98/54 L Pulse Oximetry 93 Oxygen Delivery Oxygen Flow Rate Intake/Output Intake/Output: Intake & Output 08/01/25 08/02/25 08/03/25 08/04/25 23:59 23:59 23:59 23:59 Intake Total 2630 2431.7 297 200 Output Total 1900 2650 1775 800 Balance 805 -218.3 -4857 -441 Meds/Results Medications: Active Medications Generic Name Dose Route Start Last Admin Trade Name Freq PRN Reason Stop Dose Admin Acetaminophen 650 mg 08/02/25 16:13 Acetaminophen 325 Mg Tablet PO Q6H PRN Mild Pain (1-3) or Fever Albuterol/Ipratropium 3 ml 07/27/25 17:46 07/27/25 18:34 Ipratropium 0.5 Mg/Albuterol Sulfate 2.5 Mg Ampul.Neb 3 Ml INHALATION 3 ml Q6HRT PRN Administration Shortness Of Breath Ascorbic Acid 500 mg 07/29/25 09:00 08/04/25 09:56 Ascorbic Acid 500 Mg Tablet PO 500 mg DAILY MICAH Administration Cyanocobalamin 1,000 mcg 07/29/25 09:00 08/04/25 09:56 Cyanocobalamin 1,000 Mcg Tablet PO 1,000 mcg QAM MICHA Administration Dextrose 12.5 gm 07/26/25 22:31 Dextrose 50% 25 Gm/50 Ml Syringe IV PUSH PRN PRN Hypoglycemia Protocol Diphenhydramine HCl 25 mg 07/27/25 17:10 Diphenhydramine Hcl Inj 50 Mg/Ml Vial IV PUSH Q6H PRN Itching Fluticasone/Umeclidinium/Vilanterol 1 puff 07/27/25 08:00 08/03/25 08:25 Fluticasone/Umeclidin/Vilanter 100-62.5-25 Mcg Ellipta INHALATION 1 puff DAILYRT MICAH Administration Glucose 15 gm 07/26/25 22:31 Glucose Oral Gel 15 Gm Of Glucse In 37.5 Gm Tube PO PRN PRN Hypoglycemia Protocol Hydromorphone HCl 1 mg 07/27/25 17:10 Hydromorphone Hcl Inj (*Crx) 1 Mg/Ml Syr IV PUSH Q2H PRN Breakthrough Pain Rated 7-10 or NPO Hydromorphone HCl 0.5 mg 07/27/25 17:10 Hydromorphone Hcl Inj (*Crx) 1 Mg/Ml Syr IV PUSH Q2H PRN Breakthrough Pain Rated 4-6 or NPO Dextrose 1,000 mls @ 100 mls/hr 07/26/25 22:31 Dextrose 5% 1,000 Ml IVPB PRN PRN Hypoglycemia Protocol Lactulose 20 gm 08/01/25 17:00 08/04/25 11:44 Lactulose 20 Gm/30 Ml Udc PO 20 gm BID IMCAH Administration Levofloxacin 750 mg 08/04/25 09:00 08/04/25 09:56 Levofloxacin 750 Mg Tablet PO 08/14/25 09:01 750 mg DAILY MICAH Administration Linezolid 600 mg 08/01/25 12:00 08/04/25 09:56 Linezolid 600 Mg Tablet PO 08/14/25 21:01 600 mg Q12HR MICAH Administration Metronidazole 500 mg 07/29/25 22:00 08/04/25 05:44 Metronidazole 500 Mg Tablet PO 08/14/25 22:01 500 mg Q8HR MICAH Administration Midodrine 10 mg 08/03/25 13:00 08/04/25 09:56 Midodrine Hcl 2.5 Mg Tablet PO 10 mg TID MICAH Administration Montelukast Sodium 10 mg 07/28/25 21:00 08/03/25 21:15 Montelukast Sodium 10 Mg Tablet PO 10 mg HS MICAH Administration Multi-Ingred Cream/Lotion/Oil/Oint 1 applic 07/31/25 17:45 08/04/25 09:57 Eucerin Cream 120 Gm Jar TOPICAL 1 applic DAILY MICAH Administration Naloxone HCl 0.1 mg 07/27/25 17:10 Naloxone Hcl 0.4 Mg/Ml Vial IV PUSH Q2M PRN Opiate Reversal Ondansetron HCl 4 mg 07/27/25 17:10 08/02/25 10:16 Ondansetron Inj 4 Mg/2 Ml Vial IV PUSH 4 mg Q4H PRN Administration Nausea And Vomiting Perflutren Lipid Microsphere 0 ml 08/03/25 11:00 Perflutren Lipid Microspheres 1.5 Ml Vial Diluted To 10 Ml Total Volume IV PUSH 08/06/25 11:01 ONCE PRN adequate visualization Protocol Rivaroxaban 10 mg 07/29/25 17:00 08/03/25 16:54 Rivaroxaban 10 Mg Tablet PO 10 mg 1700 MICAH Administration Vitamin D 25 mcg 07/29/25 09:00 08/04/25 09:56 Cholecalciferol (Vitamin D3) 25 Mcg (1,000 Units) Tablet PO 25 mcg DAILY MICAH Administration Radiology Results: ITS Impressions Abdomen/Pelvis CT 07/26/25 18:25 IMPRESSION: 1. Small focal ulceration with mild inflammatory change involving the posterior soft tissues just below the coccyx. No drainable fluid collection identified. 2: Moderately distended small bowel and colon with air-fluid levels, consistent with ileus. Head CT 07/27/25 08:07 IMPRESSION: 1. Age-related changes including mild to moderate diffuse volume loss and moderate scattered white matter hypoattenuation consistent with chronic small vessel ischemic disease. No acute intracranial process. Chest X-Ray 07/31/25 13:21 IMPRESSION: 1. Left basilar atelectasis and/or airspace disease. 2. Small left effusion not excluded. 3. Suspect developing mild interstitial pulmonary edema. Abdomen X-Ray 08/02/25 18:50 IMPRESSION: 1. No acute findings. 2. No increased stool burden to suggest large volume constipation. Labs Labs: Laboratory Results - last 24 hr 08/04/25 05:35 WBC 14.0 H RBC 3.71 L Hgb 10.7 L Hct 35.5 L MCV 95.7 MCH 28.8 MCHC 30.1 L RDW 15.1 H Plt Count 345 MPV 9.6 Immature Gran % (Auto) 2.1 H Neut % (Auto) 63.7 Lymph % (Auto) 22.3 [place] % (Auto) 8.2 Eos % (Auto) 3.1 Baso % (Auto) 0.6 Lymph # (Auto) 3.13 [place] # (Auto) 1.2 H Eos # (Auto) 0.4 H Baso # (Auto) 0.1 Abs Immat Gran (auto) 0.30 H Absolute Neuts (auto) 8.9 H Absolute Nucleated RBC 0.000 Nucleated RBC % 0.0 Sodium 133 L Potassium 3.9 Chloride 105 Carbon Dioxide 28 Anion Gap 0 L BUN 4 L Creatinine 0.51 L Estim Creat Clear Calc 120 Estimated GFR > 60 Glucose 120 H Calcium 7.8 L Magnesium 2.1 Total Bilirubin 0.3 AST 203 H ALT 141 H Alkaline Phosphatase 389 H NT-Pro-B Natriuret Pep 259 H Total Protein 4.9 L Albumin 2.2 L Quality VTE Prophylaxis VTE prophylaxis: pharmacologic ordered
[2025-08-04 14:00] VITALS: BP 98/56; PULSE 55; RESP 18; TEMP 36.2; O2SAT 94
--- NOTE | 2025-08-04 18:05 | WNDPHOTO ---
PHOTO ONLY - See Nursing Notes and/ or assessments for documentation.
--- NOTE | 2025-08-04 18:09 | WNDPHOTO ---
PHOTO ONLY - See Nursing Notes and/ or assessments for documentation.
[2025-08-04] MEDS: RIVAROXABAN 10 MG TABLET PO (18:29)
[2025-08-04] MEDS: MONTELUKAST SODIUM 10 MG TABLET PO (21:42)
[2025-08-04 22:00] VITALS: BP 99/62; PULSE 95; RESP 18; TEMP 37; O2SAT 96
[2025-08-05] MEDS: ONDANSETRON INJ 4 MG/2 ML VIAL IV PUSH (00:18)
[2025-08-05 06:00] VITALS: BP 96/58; PULSE 86; RESP 18; TEMP 36.2; O2SAT 94
[2025-08-05 06:12] LABS: Hematocrit 36.2 % (42.0-52.0); Hemoglobin 10.9 g/dL (14.0-18.0); Immature Granulocyte Percent A 1.4 % (0-0.5); Lymphocytes Absolute Auto 3.82 K/mm3 (0.9-3.2); Mean Corpuscular HGB Conc 30.1 g/dl (32-36); Mean Corpuscular Hemoglobin 29.1 pg (26-34); Mean Corpuscular Volume 96.5 fl (80-100); Nucleated Red Blood Cells Absolute Auto 0.000 K/mm3 (0.0-0.012); Nucleated Red Blood Cells Perc 0.0 % (0.0-0.2); Platelet Count Result 357 k/mm3 (150-375); Red Blood Count 3.75 M/mm3 (4.6-6.20); White Blood Count 14.7 K/mm3 (4.5-10.0)
[2025-08-05] MEDS: MIDODRINE HCL 2.5 MG TABLET 10 MG PO ×3 (06:49→16:08)
[2025-08-05 07:45] LABS: Alanine Aminotransferase 85 U/L (6-50); Albumin Level 2.2 g/dL (3.5-5.1); Alkaline Phosphatase 284 U/L (38-126); Anion Gap 0 mmol/L (4-12); Aspartate Amino Transferase 72 U/L (17-59); Bilirubin,Total 0.4 mg/dL (0.2-1.3); Blood Urea Nitrogen 10 mg/dL (9-20); Calcium 7.7 mg/dL (8.4-10.2); Carbon Dioxide 27 mmol/L (22-30); Chloride 105 mmol/L (98-107); Estimated CRCL calculation 115 ml/min; Estimated Glomerular Filt Rate > 60; Glucose 102 mg/dL (65-110); Potassium 4.3 mmol/L (3.4-5.0); Sodium 132 mmol/L (137-145); Total Protein 4.8 g/dL (6.3-8.2)
[2025-08-05 07:49] VITALS: PULSE 88; RESP 20
[2025-08-05] MEDS: FLUTICASONE/UMECLIDIN/VILANTER 100-62.5-25 MCG ELLIPTA 1 PUFF INHALATION (07:49)
[2025-08-05 08:00] VITALS: O2SAT 94
[2025-08-05] MEDS: LACTULOSE 20 GM/30 ML UDC PO ×2 (10:14→16:20)
[2025-08-05] MEDS: CYANOCOBALAMIN 1,000 MCG TABLET 1000 MCG PO (10:16)
[2025-08-05] MEDS: LINEZOLID 600 MG TABLET PO ×2 (10:16→21:39)
[2025-08-05] MEDS: ASCORBIC ACID 500 MG TABLET PO (10:16)
[2025-08-05] MEDS: CHOLECALCIFEROL (VITAMIN D3) 25 MCG (1,000 UNITS) TABLET PO (10:16)
[2025-08-05] MEDS: EUCERIN CREAM 120 GM JAR 1 APPLIC TOPICAL (10:17)
--- NOTE | 2025-08-05 11:52 | PCNFU ---
Nutrition Follow-Up Complete: Increased protein energy needs related to pressure injuries as evidenced by wound report Goal:Intakes adequate to support wound healing Pt not meeting goal Pt current nutrition is Regular, Ensure TID, LAKESHA BID. Nutrition recommendation: Increased Ensure to QID Last recorded weight is 75 kg. Bowel Motility: No BM, enema given, nursing aware Labs Reviewed: Hgb:10.9, HCt:36.2, Alb:2.2, Na:132, Cr:0.56 Meds Noted:miralax, lovenox, VIt C Skin: multiople pressure injuries Additional Notes: Pt continues on a regular diet, intake remains poor, nursing states pt does drink the Ensure drinks. Pt asleep during rounds. Will increased Ensure to QID. Nursing aware of No BM and working to resolve. Monitoring diet orders, weights, labs, GI function, wounds, plan of care Follow up in 3 days
[2025-08-05] MEDS: ACETAMINOPHEN 325 MG TABLET 650 MG PO (12:44)
--- NOTE | 2025-08-05 13:56 | PM.IMPN ---
Progress Note: A&P Assessment and Plan (1) Hypertension: Code(s): I10 - Essential (primary) hypertension Status: Acute (2) Ileus: Code(s): K56.7 - Ileus, unspecified Status: Acute (3) Leukocytosis: Code(s): D72.829 - Elevated white blood cell count, unspecified Status: Acute (4) Sepsis: Code(s): A41.9 - Sepsis, unspecified organism Status: Acute (5) Right foot ulcer: Code(s): L97.519 - Non-pressure chronic ulcer of other part of right foot with unspecified severity Status: Acute (6) Decubitus ulcer, infected: Code(s): L89.90 - Pressure ulcer of unspecified site, unspecified stage; L08.9 - Local infection of the skin and subcutaneous tissue, unspecified Status: Acute (7) Altered mental status: Code(s): R41.82 - Altered mental status, unspecified Status: Acute (8) COPD (chronic obstructive pulmonary disease): Code(s): J44.9 - Chronic obstructive pulmonary disease, unspecified Status: Chronic (9) Acute respiratory distress: Code(s): R06.03 - Acute respiratory distress Status: Acute Plan 69-year-old bed-bound [facility] patient presents with altered mental status, He has a decubitus ulcer to the sacrum and left heel, right lateral foot with some purulence.General Surgery was consulted.s/p Sharp excisional debridement stage IV sacral decubitus ulcer including skin, subcutaneous fat, muscle, and fascia/tendon measuring 15 cm x 8 cm. # Sepsis: Likely secondary to a UTI or decubitus ulcer to sacrum Chest x-ray was clear Influenza, asthma, COVID were negative He was initially started on cefepime vancomycin and metronidazole. Currently he is on Zyvox, Levaquin, Flagyl Still has leukocytosis, fluctuating Appreciate ID help Local wound care as per surgery recommendation Blood pressure remains soft Continue with midodrine Fluconazole has been stopped as urine culture was growing Nehal as per ID recommendation Patient has chronic indwelling catheter # Acute respiratory distress: Continues to be on 4 L of O2 support ? Unclear etiology Blood pressure remains soft, will not tolerate Lasix Already on Xarelto, unlikely to be PE CTA which shows mild pulmonary edema and no PE Elevated BNP Echo EF 60-65% grade 1 diastolic dysfunction trace tricuspid regurgitation Will gently diurese as tolerated add albumin for blood pressure # Altered mental status: Head CT showing age-related changes including mild-moderate diffuse volume loss and moderate scattered white matter hypoattenuation consistent with chronic small-vessel ischemic disease but no acute findings. Ammonia level negative. TSH normal. UDS negative. B12 level low at 231. Folate normal. Vit D <12.8. Likely has metabolic encephalopathy due to UTI, sacral infection, B12 and VitD deficiency Symptoms improving. Fall precautions. c/w B12 and VitD # Ileus: Ileus -CT scan showed probable ileus related to sepsis. Serial exams and Abdominal x-rays showing ileus has resolved. Constipation Continue with lactulose # Multiple sclerosis: Patient on interferon prior to admission. Mental status improving. Neurology following Resume Interferon when infection better controlled. Monitor mental status. # COPD (chronic obstructive pulmonary disease): No wheezing appreciated but he remains on oxygen. Continue Trelegy. Albuterol p.r.n.. Echo and CTA as reviewed above # Code status: Full # DVT prophylaxis: Xarelto # Disposition: Pending improvement Subjective Date/time seen: 08/05/25 13:56 Interval history: No overnight events. Patient reports no complaints. Chart reviewed. No chest pain or shortness of breath. Remains on 3 L oxygen. Discussed with care coordination. Daughter wants to take him down to [place]. Issue with oxygen during the transport Review of Systems Review of Systems: All systems reviewed & are unremarkable except as noted in HPI and below Exam Narrative: Gen - No acute distress Chest -B/L decreased breath sounds B/L CV - normal sinus rhythm Abd -soft, non tender, BS+ Ext - 1+ pedal edema. Neuro - alert Psych - depressed mood Skin - Warm and dry. Right lateral foot, bilateral heel, and right hip and sacral area dressings are clean, dry and intact. Objective Data Vital Signs Vital Signs: Vital Signs - 24 hr 08/04/25 14:00 08/04/25 22:00 08/05/25 06:00 Temperature 97.1 F L 98.6 F 97.2 F L Pulse Rate 55 L 95 86 Respiratory Rate 18 18 18 Blood Pressure 98/56 L 99/62 L 96/58 L Pulse Oximetry 94 96 94 08/05/25 07:49 Temperature Pulse Rate 88 Respiratory Rate 20 Blood Pressure Pulse Oximetry Intake/Output Intake/Output: Intake & Output 08/02/25 08/03/25 08/04/25 08/05/25 23:59 23:59 23:59 23:59 Intake Total 2431.7 297 600 500 Output Total 2650 1775 1500 550 Balance -218.3 -1478 -900 -50 Meds/Results Medications: Active Medications Generic Name Dose Route Start Last Admin Trade Name Freq PRN Reason Stop Dose Admin Acetaminophen 650 mg 08/02/25 16:13 08/05/25 12:44 Acetaminophen 325 Mg Tablet PO 650 mg Q6H PRN Administration Mild Pain (1-3) or Fever Albuterol/Ipratropium 3 ml 07/27/25 17:46 07/27/25 18:34 Ipratropium 0.5 Mg/Albuterol Sulfate 2.5 Mg Ampul.Neb 3 Ml INHALATION 3 ml Q6HRT PRN Administration Shortness Of Breath Ascorbic Acid 500 mg 07/29/25 09:00 08/05/25 10:16 Ascorbic Acid 500 Mg Tablet PO 500 mg DAILY MICAH Administration Cyanocobalamin 1,000 mcg 07/29/25 09:00 08/05/25 10:16 Cyanocobalamin 1,000 Mcg Tablet PO 1,000 mcg QAM MICAH Administration Dextrose 12.5 gm 07/26/25 22:31 Dextrose 50% 25 Gm/50 Ml Syringe IV PUSH PRN PRN Hypoglycemia Protocol Diphenhydramine HCl 25 mg 07/27/25 17:10 Diphenhydramine Hcl Inj 50 Mg/Ml Vial IV PUSH Q6H PRN Itching Fluticasone/Umeclidinium/Vilanterol 1 puff 07/27/25 08:00 08/05/25 07:49 Fluticasone/Umeclidin/Vilanter 100-62.5-25 Mcg Ellipta INHALATION 1 puff DAILYRT MICAH Administration Glucose 15 gm 07/26/25 22:31 Glucose Oral Gel 15 Gm Of Glucse In 37.5 Gm Tube PO PRN PRN Hypoglycemia Protocol Hydromorphone HCl 1 mg 07/27/25 17:10 Hydromorphone Hcl Inj (*Crx) 1 Mg/Ml Syr IV PUSH Q2H PRN Breakthrough Pain Rated 7-10 or NPO Hydromorphone HCl 0.5 mg 07/27/25 17:10 Hydromorphone Hcl Inj (*Crx) 1 Mg/Ml Syr IV PUSH Q2H PRN Breakthrough Pain Rated 4-6 or NPO Dextrose 1,000 mls @ 100 mls/hr 07/26/25 22:31 Dextrose 5% 1,000 Ml IVPB PRN PRN Hypoglycemia Protocol Lactulose 20 gm 08/01/25 17:00 08/05/25 10:14 Lactulose 20 Gm/30 Ml Udc PO 20 gm BID MICAH Administration Levofloxacin 750 mg 08/04/25 09:00 08/05/25 10:15 Levofloxacin 750 Mg Tablet PO 08/14/25 09:01 750 mg DAILY MICAH Administration Linezolid 600 mg 08/01/25 12:00 08/05/25 10:16 Linezolid 600 Mg Tablet PO 08/14/25 21:01 600 mg Q12HR MICAH Administration Metronidazole 500 mg 07/29/25 22:00 08/05/25 05:12 Metronidazole 500 Mg Tablet PO 08/14/25 22:01 500 mg Q8HR MICAH Administration Midodrine 10 mg 08/03/25 13:00 08/05/25 12:45 Midodrine Hcl 2.5 Mg Tablet PO 10 mg TID MICAH Administration Montelukast Sodium 10 mg 07/28/25 21:00 08/04/25 21:42 Montelukast Sodium 10 Mg Tablet PO 10 mg HS MICAH Administration Multi-Ingred Cream/Lotion/Oil/Oint 1 applic 07/31/25 17:45 08/05/25 10:17 Eucerin Cream 120 Gm Jar TOPICAL 1 applic DAILY MICAH Administration Naloxone HCl 0.1 mg 07/27/25 17:10 Naloxone Hcl 0.4 Mg/Ml Vial IV PUSH Q2M PRN Opiate Reversal Ondansetron HCl 4 mg 07/27/25 17:10 08/05/25 00:18 Ondansetron Inj 4 Mg/2 Ml Vial IV PUSH 4 mg Q4H PRN Administration Nausea And Vomiting Perflutren Lipid Microsphere 0 ml 08/03/25 11:00 Perflutren Lipid Microspheres 1.5 Ml Vial Diluted To 10 Ml Total Volume IV PUSH 08/06/25 11:01 ONCE PRN adequate visualization Protocol Rivaroxaban 10 mg 07/29/25 17:00 08/04/25 18:29 Rivaroxaban 10 Mg Tablet PO 10 mg 1700 MICAH Administration Vitamin D 25 mcg 07/29/25 09:00 08/05/25 10:16 Cholecalciferol (Vitamin D3) 25 Mcg (1,000 Units) Tablet PO 25 mcg DAILY MICAH Administration Radiology Results: ITS Impressions Abdomen/Pelvis CT 07/26/25 18:25 IMPRESSION: 1. Small focal ulceration with mild inflammatory change involving the posterior soft tissues just below the coccyx. No drainable fluid collection identified. 2: Moderately distended small bowel and colon with air-fluid levels, consistent with ileus. Head CT 07/27/25 08:07 IMPRESSION: 1. Age-related changes including mild to moderate diffuse volume loss and moderate scattered white matter hypoattenuation consistent with chronic small vessel ischemic disease. No acute intracranial process. Chest X-Ray 07/31/25 13:21 IMPRESSION: 1. Left basilar atelectasis and/or airspace disease. 2. Small left effusion not excluded. 3. Suspect developing mild interstitial pulmonary edema. Abdomen X-Ray 08/02/25 18:50 IMPRESSION: 1. No acute findings. 2. No increased stool burden to suggest large volume constipation. Chest CTA 08/05/25 08:03 IMPRESSION: 1. No pulmonary embolus. 2. Mild pulmonary edema. 3. Small pleural effusions. 4. Mild emphysema. Labs Labs: Laboratory Results - last 24 hr 08/05/25 05:46 WBC 14.7 H RBC 3.75 L Hgb 10.9 L Hct 36.2 L MCV 96.5 MCH 29.1 MCHC 30.1 L RDW 15.5 H Plt Count 357 MPV 10.0 Immature Gran % (Auto) 1.4 H Neut % (Auto) 62.9 Lymph % (Auto) 26.1 [place] % (Auto) 7.4 Eos % (Auto) 1.7 Baso % (Auto) 0.5 Lymph # (Auto) 3.82 H [place] # (Auto) 1.1 H Eos # (Auto) 0.3 Baso # (Auto) 0.1 Abs Immat Gran (auto) 0.20 H Absolute Neuts (auto) 9.2 H Absolute Nucleated RBC 0.000 Nucleated RBC % 0.0 Sodium 132 L Potassium 4.3 Chloride 105 Carbon Dioxide 27 Anion Gap 0 L BUN 10 D Creatinine 0.56 L Estim Creat Clear Calc 115 Estimated GFR > 60 Glucose 102 Calcium 7.7 L Total Bilirubin 0.4 AST 72 H ALT 85 H Alkaline Phosphatase 284 H Total Protein 4.8 L Albumin 2.2 L
[2025-08-05 15:07] VITALS: BP 94/56; PULSE 79; RESP 18; TEMP 36.8; O2SAT 94
--- NOTE | 2025-08-05 15:23 | P.PNGS_ITS ---
Progress Note: A&P Assessment and Plan (1) Decubitus ulcer, infected: Code(s): L89.90 - Pressure ulcer of unspecified site, unspecified stage; L08.9 - Local infection of the skin and subcutaneous tissue, unspecified Status: Acute Assessment and Plan: * POD 8 s/p excisional debridement stage IV sacral decubitus ulcer. Healing appropriately. We will see patient on a PRN basis. * Continue local wound care with silver gel dressing changes daily for sacral wound. Silver gel to right lateral foot wound. * Continue frequent turning/pressure offloading/elevated heels off bed * Continue antibiotics per ID (rec. 14 day course) (2) Sepsis: Code(s): A41.9 - Sepsis, unspecified organism Status: Acute Assessment and Plan: * Source likely related to decubitus ulcer vs UTI vs combination. Continue antibiotics * Blood cultures with no growth (3) UTI (urinary tract infection): Code(s): N39.0 - Urinary tract infection, site not specified Status: Acute Assessment and Plan: * ID recommending to stop fluconazole with low suspicion of drew UTI (4) Multiple sclerosis: Code(s): G35 - Multiple sclerosis Status: Chronic (5) COPD (chronic obstructive pulmonary disease): Code(s): J44.9 - Chronic obstructive pulmonary disease, unspecified Status: Chronic (6) Right foot ulcer: Code(s): L97.519 - Non-pressure chronic ulcer of other part of right foot with unspecified severity Status: Acute Assessment and Plan: * Right lateral foot ulcer remains stable * Continue to elevate his heels off the bed * Continue local wound care with silver gel and Mepilex Plan Discussed patient's case and plan of care with Dr. Richardson. Subjective Subjective Date/Time Seen: 08/05/25 15:23 Patient reports: no new complaints, tolerating a regular diet and no bowel movement Interval history: Patient doing well. No new complaints. Still no BM. Exam Back/Spine/Pelvis: Other: Stage IV sacral decubitus ulcer with small area of yellow/de [place]on fibrous tissue over the sacrum and a small area of yellow superficial slough in the left side of the wound where there is undermining, no purulent drainage or odor. The remainder of the wound is pink (75%) with some granulating tissue. Objective Data Vital Signs Vital Signs: Vital Signs - 24 hr 08/04/25 22:00 08/05/25 06:00 08/05/25 07:49 Temperature 98.6 F 97.2 F L Pulse Rate 95 86 88 Respiratory Rate 18 18 20 Blood Pressure 99/62 L 96/58 L Pulse Oximetry 96 94 Intake/Output Intake/Output: Intake & Output 08/02/25 08/03/25 08/04/25 08/05/25 23:59 23:59 23:59 23:59 Intake Total 2431.7 297 600 600 Output Total 2650 1775 1500 550 Balance -218.3 -1478 -900 50 Meds/Results Medications: Active Medications Generic Name Dose Route Start Last Admin Trade Name Freq PRN Reason Stop Dose Admin Acetaminophen 650 mg 08/02/25 16:13 08/05/25 12:44 Acetaminophen 325 Mg Tablet PO 650 mg Q6H PRN Administration Mild Pain (1-3) or Fever Albuterol/Ipratropium 3 ml 07/27/25 17:46 07/27/25 18:34 Ipratropium 0.5 Mg/Albuterol Sulfate 2.5 Mg Ampul.Neb 3 Ml INHALATION 3 ml Q6HRT PRN Administration Shortness Of Breath Ascorbic Acid 500 mg 07/29/25 09:00 08/05/25 10:16 Ascorbic Acid 500 Mg Tablet PO 500 mg DAILY MICAH Administration Cyanocobalamin 1,000 mcg 07/29/25 09:00 08/05/25 10:16 Cyanocobalamin 1,000 Mcg Tablet PO 1,000 mcg QAM MICAH Administration Dextrose 12.5 gm 07/26/25 22:31 Dextrose 50% 25 Gm/50 Ml Syringe IV PUSH PRN PRN Hypoglycemia Protocol Diphenhydramine HCl 25 mg 07/27/25 17:10 Diphenhydramine Hcl Inj 50 Mg/Ml Vial IV PUSH Q6H PRN Itching Fluticasone/Umeclidinium/Vilanterol 1 puff 07/27/25 08:00 08/05/25 07:49 Fluticasone/Umeclidin/Vilanter 100-62.5-25 Mcg Ellipta INHALATION 1 puff DAILYRT MICAH Administration Furosemide 20 mg 08/05/25 14:00 Furosemide 20 Mg Tablet PO BID MICAH Glucose 15 gm 07/26/25 22:31 Glucose Oral Gel 15 Gm Of Glucse In 37.5 Gm Tube PO PRN PRN Hypoglycemia Protocol Hydromorphone HCl 1 mg 07/27/25 17:10 Hydromorphone Hcl Inj (*Crx) 1 Mg/Ml Syr IV PUSH Q2H PRN Breakthrough Pain Rated 7-10 or NPO Hydromorphone HCl 0.5 mg 07/27/25 17:10 Hydromorphone Hcl Inj (*Crx) 1 Mg/Ml Syr IV PUSH Q2H PRN Breakthrough Pain Rated 4-6 or NPO Dextrose 1,000 mls @ 100 mls/hr 07/26/25 22:31 Dextrose 5% 1,000 Ml IVPB PRN PRN Hypoglycemia Protocol Albumin Human 200 mls @ 60 mls/hr 08/05/25 14:00 Albutein IVPB Q8HR MICAH Lactulose 20 gm 08/01/25 17:00 08/05/25 10:14 Lactulose 20 Gm/30 Ml Udc PO 20 gm BID MICAH Administration Levofloxacin 750 mg 08/04/25 09:00 08/05/25 10:15 Levofloxacin 750 Mg Tablet PO 08/14/25 09:01 750 mg DAILY MICAH Administration Linezolid 600 mg 08/01/25 12:00 08/05/25 10:16 Linezolid 600 Mg Tablet PO 08/14/25 21:01 600 mg Q12HR MICAH Administration Metronidazole 500 mg 07/29/25 22:00 08/05/25 05:12 Metronidazole 500 Mg Tablet PO 08/14/25 22:01 500 mg Q8HR MICAH Administration Midodrine 10 mg 08/03/25 13:00 08/05/25 12:45 Midodrine Hcl 2.5 Mg Tablet PO 10 mg TID MICAH Administration Montelukast Sodium 10 mg 07/28/25 21:00 08/04/25 21:42 Montelukast Sodium 10 Mg Tablet PO 10 mg HS MICAH Administration Multi-Ingred Cream/Lotion/Oil/Oint 1 applic 07/31/25 17:45 08/05/25 10:17 Eucerin Cream 120 Gm Jar TOPICAL 1 applic DAILY MICAH Administration Naloxone HCl 0.1 mg 07/27/25 17:10 Naloxone Hcl 0.4 Mg/Ml Vial IV PUSH Q2M PRN Opiate Reversal Ondansetron HCl 4 mg 07/27/25 17:10 08/05/25 00:18 Ondansetron Inj 4 Mg/2 Ml Vial IV PUSH 4 mg Q4H PRN Administration Nausea And Vomiting Perflutren Lipid Microsphere 0 ml 08/03/25 11:00 Perflutren Lipid Microspheres 1.5 Ml Vial Diluted To 10 Ml Total Volume IV PUSH 08/06/25 11:01 ONCE PRN adequate visualization Protocol Polyethylene Glycol 17 gm 08/05/25 14:05 Polyethylene Glycol 3350 17 Gm Powd.Pack PO QAM MICAH Rivaroxaban 10 mg 07/29/25 17:00 08/04/25 18:29 Rivaroxaban 10 Mg Tablet PO 10 mg 1700 MICAH Administration Senna/Docusate Sodium 1 tab 08/05/25 21:00 Senna/Docusate Sodium Tablet PO HS [facility] Vitamin D 25 mcg 07/29/25 09:00 08/05/25 10:16 Cholecalciferol (Vitamin D3) 25 Mcg (1,000 Units) Tablet PO 25 mcg DAILY MICAH Administration Radiology Results: ITS Impressions Abdomen/Pelvis CT 07/26/25 18:25 IMPRESSION: 1. Small focal ulceration with mild inflammatory change involving the posterior soft tissues just below the coccyx. No drainable fluid collection identified. 2: Moderately distended small bowel and colon with air-fluid levels, consistent with ileus. Head CT 07/27/25 08:07 IMPRESSION: 1. Age-related changes including mild to moderate diffuse volume loss and moderate scattered white matter hypoattenuation consistent with chronic small vessel ischemic disease. No acute intracranial process. Chest X-Ray 07/31/25 13:21 IMPRESSION: 1. Left basilar atelectasis and/or airspace disease. 2. Small left effusion not excluded. 3. Suspect developing mild interstitial pulmonary edema. Abdomen X-Ray 08/02/25 18:50 IMPRESSION: 1. No acute findings. 2. No increased stool burden to suggest large volume constipation. Chest CTA 08/05/25 08:03 IMPRESSION: 1. No pulmonary embolus. 2. Mild pulmonary edema. 3. Small pleural effusions. 4. Mild emphysema. Labs Labs: Laboratory Results - last 24 hr 08/05/25 05:46 WBC 14.7 H RBC 3.75 L Hgb 10.9 L Hct 36.2 L MCV 96.5 MCH 29.1 MCHC 30.1 L RDW 15.5 H Plt Count 357 MPV 10.0 Immature Gran % (Auto) 1.4 H Neut % (Auto) 62.9 Lymph % (Auto) 26.1 [place] % (Auto) 7.4 Eos % (Auto) 1.7 Baso % (Auto) 0.5 Lymph # (Auto) 3.82 H [place] # (Auto) 1.1 H Eos # (Auto) 0.3 Baso # (Auto) 0.1 Abs Immat Gran (auto) 0.20 H Absolute Neuts (auto) 9.2 H Absolute Nucleated RBC 0.000 Nucleated RBC % 0.0 Sodium 132 L Potassium 4.3 Chloride 105 Carbon Dioxide 27 Anion Gap 0 L BUN 10 D Creatinine 0.56 L Estim Creat Clear Calc 115 Estimated GFR > 60 Glucose 102 Calcium 7.7 L Total Bilirubin 0.4 AST 72 H ALT 85 H Alkaline Phosphatase 284 H Total Protein 4.8 L Albumin 2.2 L
[2025-08-05 15:32] VITALS: BMI 10.0
[2025-08-05] MEDS: RIVAROXABAN 10 MG TABLET PO (16:20)
[2025-08-05] MEDS: ALBUMIN HUMAN 25% 25 GM/100 ML 200 ML IVPB ×2 (16:32→21:39)
[2025-08-05 18:26] VITALS: BP 95/55; PULSE 75; O2SAT 93
[2025-08-05 21:38] VITALS: BP 93/53; PULSE 76; RESP 18; TEMP 36.9; O2SAT 95
[2025-08-05] MEDS: MONTELUKAST SODIUM 10 MG TABLET PO (21:38)
[2025-08-05] MEDS: SENNA/DOCUSATE SODIUM TABLET 1 TAB PO (21:39)
[2025-08-06] MEDS: ALBUMIN HUMAN 25% 25 GM/100 ML 200 ML IVPB ×3 (05:03→21:50)
[2025-08-06 06:00] VITALS: BP 102/60; PULSE 76; RESP 18; TEMP 36.6; O2SAT 91
[2025-08-06 06:21] LABS: Hematocrit 29.2 % (42.0-52.0); Hemoglobin 9.0 g/dL (14.0-18.0); Immature Granulocyte Percent A 1.0 % (0-0.5); Lymphocytes Absolute Auto 3.40 K/mm3 (0.9-3.2); Mean Corpuscular HGB Conc 30.8 g/dl (32-36); Mean Corpuscular Hemoglobin 29.8 pg (26-34); Mean Corpuscular Volume 96.7 fl (80-100); Nucleated Red Blood Cells Absolute Auto 0.000 K/mm3 (0.0-0.012); Nucleated Red Blood Cells Perc 0.0 % (0.0-0.2); Platelet Count Result 327 k/mm3 (150-375); Red Blood Count 3.02 M/mm3 (4.6-6.20); White Blood Count 12.9 K/mm3 (4.5-10.0)
[2025-08-06 06:49] LABS: Alanine Aminotransferase 46 U/L (6-50); Albumin Level 3.1 g/dL (3.5-5.1); Alkaline Phosphatase 173 U/L (38-126); Anion Gap 4 mmol/L (4-12); Aspartate Amino Transferase 33 U/L (17-59); Bilirubin,Total 0.5 mg/dL (0.2-1.3); Blood Urea Nitrogen 7 mg/dL (9-20); Calcium 8.2 mg/dL (8.4-10.2); Carbon Dioxide 31 mmol/L (22-30); Chloride 101 mmol/L (98-107); Estimated CRCL calculation 125 ml/min; Estimated Glomerular Filt Rate > 60; Glucose 101 mg/dL (65-110); Magnesium 2.2 mg/dL (1.6-2.3); Potassium 4.0 mmol/L (3.4-5.0); Sodium 136 mmol/L (137-145); Total Protein 5.3 g/dL (6.3-8.2)
[2025-08-06] MEDS: FLUTICASONE/UMECLIDIN/VILANTER 100-62.5-25 MCG ELLIPTA 1 PUFF INHALATION (08:45)
[2025-08-06] MEDS: LACTULOSE 20 GM/30 ML UDC PO ×2 (09:23→16:34)
[2025-08-06] MEDS: LINEZOLID 600 MG TABLET PO ×2 (09:24→21:50)
[2025-08-06 09:25] VITALS: RESP 18; O2SAT 91
[2025-08-06] MEDS: ASCORBIC ACID 500 MG TABLET PO (09:25)
[2025-08-06] MEDS: FUROSEMIDE 20 MG TABLET PO ×2 (09:25→16:35)
[2025-08-06] MEDS: CHOLECALCIFEROL (VITAMIN D3) 25 MCG (1,000 UNITS) TABLET PO (09:25)
[2025-08-06] MEDS: CYANOCOBALAMIN 1,000 MCG TABLET 1000 MCG PO (09:25)
[2025-08-06] MEDS: MIDODRINE HCL 2.5 MG TABLET 10 MG PO ×3 (09:25→16:35)
[2025-08-06] MEDS: EUCERIN CREAM 120 GM JAR 1 APPLIC TOPICAL (09:26)
[2025-08-06 09:48] VITALS: O2SAT 92
--- NOTE | 2025-08-06 12:49 | P.PNIM_ITS ---
Progress Note: A&P Assessment and Plan (1) Hypertension: Code(s): I10 - Essential (primary) hypertension Status: Acute (2) Ileus: Code(s): K56.7 - Ileus, unspecified Status: Acute (3) Leukocytosis: Code(s): D72.829 - Elevated white blood cell count, unspecified Status: Acute (4) Sepsis: Code(s): A41.9 - Sepsis, unspecified organism Status: Acute (5) Right foot ulcer: Code(s): L97.519 - Non-pressure chronic ulcer of other part of right foot with unspecified severity Status: Acute (6) Decubitus ulcer, infected: Code(s): L89.90 - Pressure ulcer of unspecified site, unspecified stage; L08.9 - Local infection of the skin and subcutaneous tissue, unspecified Status: Acute (7) Altered mental status: Code(s): R41.82 - Altered mental status, unspecified Status: Acute (8) COPD (chronic obstructive pulmonary disease): Code(s): J44.9 - Chronic obstructive pulmonary disease, unspecified Status: Chronic (9) Acute respiratory distress: Code(s): R06.03 - Acute respiratory distress Status: Acute Plan 69-year-old bed-bound jail patient presents with altered mental status, He has a decubitus ulcer to the sacrum and left heel, right lateral foot with some purulence.General Surgery was consulted.s/p Sharp excisional debridement stage IV sacral decubitus ulcer including skin, subcutaneous fat, muscle, and fascia/tendon measuring 15 cm x 8 cm. # Sepsis: Likely secondary to a UTI or decubitus ulcer to sacrum Chest x-ray was clear Influenza, asthma, COVID were negative He was initially started on cefepime vancomycin and metronidazole. Currently he is on Zyvox, Levaquin, Flagyl Still has leukocytosis, fluctuating Appreciate ID help Local wound care as per surgery recommendation Blood pressure remains soft Continue with midodrine Fluconazole has been stopped as urine culture was growing Nehal as per ID recommendation Patient has chronic indwelling catheter # Acute respiratory distress: Continues to be on 4 L of O2 support ? Unclear etiology Blood pressure remains soft, will not tolerate Lasix Already on Xarelto, unlikely to be PE CTA which shows mild pulmonary edema and no PE Elevated BNP Echo EF 60-65% grade 1 diastolic dysfunction trace tricuspid regurgitation Will gently diurese with Lasix as tolerated add albumin for blood pressure # Altered mental status: Head CT showing age-related changes including mild-moderate diffuse volume loss and moderate scattered white matter hypoattenuation consistent with chronic small-vessel ischemic disease but no acute findings. Ammonia level negative. TSH normal. UDS negative. B12 level low at 231. Folate normal. Vit D <12.8. Likely has metabolic encephalopathy due to UTI, sacral infection, B12 and VitD deficiency Symptoms improving. Fall precautions. c/w B12 and VitD # Ileus: Ileus -CT scan showed probable ileus related to sepsis. Serial exams and Abdominal x-rays showing ileus has resolved. Constipation Continue with lactulose Added MiraLax and Senokot # Multiple sclerosis: Patient on interferon prior to admission. Mental status improving. Neurology following Resume Interferon when infection better controlled. Monitor mental status. # COPD (chronic obstructive pulmonary disease): No wheezing appreciated but he remains on oxygen. Continue Trelegy. Albuterol p.r.n.. Echo and CTA as reviewed above # Code status: Full # DVT prophylaxis: Xarelto # Disposition: Pending improvement Subjective Date/time seen: 08/06/25 12:49 Interval history: No overnight events. Blood pressure borderline. Getting dressing changes. Leg swelling still present Review of Systems Review of Systems: All systems reviewed & are unremarkable except as noted in HPI and below Exam Narrative: Gen - No acute distress Chest -B/L decreased breath sounds B/L CV - normal sinus rhythm Abd -soft, non tender, BS+ Ext - 1+ pedal edema. Neuro - alert Psych - depressed mood Skin - Warm and dry. Right lateral foot, bilateral heel, and right hip and sacral area dressings are clean, dry and intact. Objective Data Vital Signs Vital Signs: Vital Signs - 24 hr 08/05/25 15:07 08/05/25 18:26 08/05/25 21:38 Temperature 98.2 F 98.4 F Pulse Rate 79 75 76 Respiratory Rate 18 18 Blood Pressure 94/56 L 95/55 L 93/53 L Pulse Oximetry 94 93 95 Oxygen Delivery Oxygen Flow Rate 08/06/25 06:00 08/06/25 09:25 Temperature 97.9 F Pulse Rate 76 Respiratory Rate 18 18 Blood Pressure 102/60 Pulse Oximetry 91 91 Oxygen Delivery Nasal Cannula Oxygen Flow Rate 3 Intake/Output Intake/Output: Intake & Output 08/03/25 08/04/25 08/05/25 08/06/25 23:59 23:59 23:59 23:59 Intake Total 720 811 6483 640 Output Total 1775 1500 1125 400 Balance -1478 -900 135 240 Meds/Results Medications: Active Medications Generic Name Dose Route Start Last Admin Trade Name Freq PRN Reason Stop Dose Admin Acetaminophen 650 mg 08/02/25 16:13 08/05/25 12:44 Acetaminophen 325 Mg Tablet PO 650 mg Q6H PRN Administration Mild Pain (1-3) or Fever Albuterol/Ipratropium 3 ml 07/27/25 17:46 07/27/25 18:34 Ipratropium 0.5 Mg/Albuterol Sulfate 2.5 Mg Ampul.Neb 3 Ml INHALATION 3 ml Q6HRT PRN Administration Shortness Of Breath Ascorbic Acid 500 mg 07/29/25 09:00 08/06/25 09:25 Ascorbic Acid 500 Mg Tablet PO 500 mg DAILY MICAH Administration Cyanocobalamin 1,000 mcg 07/29/25 09:00 08/06/25 09:25 Cyanocobalamin 1,000 Mcg Tablet PO 1,000 mcg QAM MICAH Administration Dextrose 12.5 gm 07/26/25 22:31 Dextrose 50% 25 Gm/50 Ml Syringe IV PUSH PRN PRN Hypoglycemia Protocol Diphenhydramine HCl 25 mg 07/27/25 17:10 Diphenhydramine Hcl Inj 50 Mg/Ml Vial IV PUSH Q6H PRN Itching Fluticasone/Umeclidinium/Vilanterol 1 puff 07/27/25 08:00 08/06/25 12:34 Fluticasone/Umeclidin/Vilanter 100-62.5-25 Mcg Ellipta INHALATION Not Given DAILYRT MICAH Furosemide 20 mg 08/05/25 14:00 08/06/25 09:25 Furosemide 20 Mg Tablet PO 20 mg BID MICHA Administration Glucose 15 gm 07/26/25 22:31 Glucose Oral Gel 15 Gm Of Glucse In 37.5 Gm Tube PO PRN PRN Hypoglycemia Protocol Hydromorphone HCl 1 mg 07/27/25 17:10 Hydromorphone Hcl Inj (*Crx) 1 Mg/Ml Syr IV PUSH Q2H PRN Breakthrough Pain Rated 7-10 or NPO Hydromorphone HCl 0.5 mg 07/27/25 17:10 Hydromorphone Hcl Inj (*Crx) 1 Mg/Ml Syr IV PUSH Q2H PRN Breakthrough Pain Rated 4-6 or NPO Dextrose 1,000 mls @ 100 mls/hr 07/26/25 22:31 Dextrose 5% 1,000 Ml IVPB PRN PRN Hypoglycemia Protocol Albumin Human 200 mls @ 60 mls/hr 08/05/25 14:00 08/06/25 08:23 Albutein IVPB Infused Q8HR MICAH Infusion Lactulose 20 gm 08/01/25 17:00 08/06/25 09:23 Lactulose 20 Gm/30 Ml Udc PO 20 gm BID MICAH Administration Levofloxacin 750 mg 08/04/25 09:00 08/06/25 09:25 Levofloxacin 750 Mg Tablet PO 08/14/25 09:01 750 mg DAILY MICAH Administration Linezolid 600 mg 08/01/25 12:00 08/06/25 09:24 Linezolid 600 Mg Tablet PO 08/14/25 21:01 600 mg Q12HR MICAH Administration Metronidazole 500 mg 07/29/25 22:00 08/06/25 05:03 Metronidazole 500 Mg Tablet PO 08/14/25 22:01 500 mg Q8HR MICAH Administration Midodrine 10 mg 08/03/25 13:00 08/06/25 12:36 Midodrine Hcl 2.5 Mg Tablet PO 10 mg TID MICAH Administration Miscellaneous Information 1 each 08/05/25 00:01 Renewboth Hydromorphone Orders. Per [employer] Procedure, It Will Discontinue If Not Renewed XX 09/04/25 00:00 CLARIFY MICAH Montelukast Sodium 10 mg 07/28/25 21:00 08/05/25 21:38 Montelukast Sodium 10 Mg Tablet PO 10 mg HS MICAH Administration Multi-Ingred Cream/Lotion/Oil/Oint 1 applic 07/31/25 17:45 08/06/25 09:26 Eucerin Cream 120 Gm Jar TOPICAL 1 applic DAILY MICAH Administration Naloxone HCl 0.1 mg 07/27/25 17:10 Naloxone Hcl 0.4 Mg/Ml Vial IV PUSH Q2M PRN Opiate Reversal Ondansetron HCl 4 mg 07/27/25 17:10 08/05/25 00:18 Ondansetron Inj 4 Mg/2 Ml Vial IV PUSH 4 mg Q4H PRN Administration Nausea And Vomiting Polyethylene Glycol 17 gm 08/05/25 14:05 08/06/25 09:24 Polyethylene Glycol 3350 17 Gm Powd.Pack PO 17 gm QAM MICAH Administration Rivaroxaban 10 mg 07/29/25 17:00 08/05/25 16:20 Rivaroxaban 10 Mg Tablet PO 10 mg 1700 MICAH Administration Senna/Docusate Sodium 1 tab 08/05/25 21:00 08/05/25 21:39 Senna/Docusate Sodium Tablet PO 1 tab HS MICAH Administration Vitamin D 25 mcg 07/29/25 09:00 08/06/25 09:25 Cholecalciferol (Vitamin D3) 25 Mcg (1,000 Units) Tablet PO 25 mcg DAILY MICAH Administration Radiology Results: ITS Impressions Abdomen/Pelvis CT 07/26/25 18:25 IMPRESSION: 1. Small focal ulceration with mild inflammatory change involving the posterior soft tissues just below the coccyx. No drainable fluid collection identified. 2: Moderately distended small bowel and colon with air-fluid levels, consistent with ileus. Head CT 07/27/25 08:07 IMPRESSION: 1. Age-related changes including mild to moderate diffuse volume loss and moderate scattered white matter hypoattenuation consistent with chronic small vessel ischemic disease. No acute intracranial process. Chest X-Ray 07/31/25 13:21 IMPRESSION: 1. Left basilar atelectasis and/or airspace disease. 2. Small left effusion not excluded. 3. Suspect developing mild interstitial pulmonary edema. Abdomen X-Ray 08/02/25 18:50 IMPRESSION: 1. No acute findings. 2. No increased stool burden to suggest large volume constipation. Chest CTA 08/05/25 08:03 IMPRESSION: 1. No pulmonary embolus. 2. Mild pulmonary edema. 3. Small pleural effusions. 4. Mild emphysema. Labs Labs: Laboratory Results - last 24 hr 08/06/25 05:46 WBC 12.9 H RBC 3.02 L Hgb 9.0 L Hct 29.2 L MCV 96.7 MCH 29.8 MCHC 30.8 L RDW 15.7 H Plt Count 327 MPV 9.8 Immature Gran % (Auto) 1.0 H Neut % (Auto) 61.3 Lymph % (Auto) 26.4 [place] % (Auto) 7.7 Eos % (Auto) 3.0 Baso % (Auto) 0.6 Lymph # (Auto) 3.40 H [place] # (Auto) 1.0 H Eos # (Auto) 0.4 H Baso # (Auto) 0.1 Abs Immat Gran (auto) 0.13 H Absolute Neuts (auto) 7.9 H Absolute Nucleated RBC 0.000 Nucleated RBC % 0.0 Sodium 136 L Potassium 4.0 Chloride 101 Carbon Dioxide 31 H Anion Gap 4 BUN 7 L Creatinine 0.51 L Estim Creat Clear Calc 125 Estimated GFR > 60 Glucose 101 Calcium 8.2 L Magnesium 2.2 Total Bilirubin 0.5 AST 33 ALT 46 Alkaline Phosphatase 173 H Total Protein 5.3 L Albumin 3.1 L
[2025-08-06 14:00] VITALS: BP 110/68; PULSE 54; RESP 18; TEMP 35.9; O2SAT 96
[2025-08-06] MEDS: RIVAROXABAN 10 MG TABLET PO (16:35)
[2025-08-06 20:00] VITALS: PULSE 54; RESP 20; O2SAT 93
[2025-08-06] MEDS: SENNA/DOCUSATE SODIUM TABLET 1 TAB PO (21:50)
[2025-08-06] MEDS: MONTELUKAST SODIUM 10 MG TABLET PO (21:50)
[2025-08-06 22:00] VITALS: BP 131/63; PULSE 54; RESP 20; TEMP 36.6; O2SAT 93
[2025-08-07 06:00] VITALS: BP 148/84; PULSE 74; RESP 16; TEMP 36.6; O2SAT 94
[2025-08-07] MEDS: ALBUMIN HUMAN 25% 25 GM/100 ML 200 ML IVPB ×3 (06:04→22:15)
[2025-08-07 06:52] LABS: Hematocrit 30.3 % (42.0-52.0); Hemoglobin 9.2 g/dL (14.0-18.0); Immature Granulocyte Percent A 0.7 % (0-0.5); Lymphocytes Absolute Auto 3.00 K/mm3 (0.9-3.2); Mean Corpuscular HGB Conc 30.4 g/dl (32-36); Mean Corpuscular Hemoglobin 29.4 pg (26-34); Mean Corpuscular Volume 96.8 fl (80-100); Nucleated Red Blood Cells Absolute Auto 0.000 K/mm3 (0.0-0.012); Nucleated Red Blood Cells Perc 0.0 % (0.0-0.2); Platelet Count Result 337 k/mm3 (150-375); Red Blood Count 3.13 M/mm3 (4.6-6.20); White Blood Count 13.8 K/mm3 (4.5-10.0)
[2025-08-07 07:18] LABS: Alanine Aminotransferase 33 U/L (6-50); Albumin Level 3.9 g/dL (3.5-5.1); Alkaline Phosphatase 120 U/L (38-126); Anion Gap 9 mmol/L (4-12); Aspartate Amino Transferase 29 U/L (17-59); Bilirubin,Total 0.9 mg/dL (0.2-1.3); Blood Urea Nitrogen 9 mg/dL (9-20); Calcium 8.7 mg/dL (8.4-10.2); Carbon Dioxide 28 mmol/L (22-30); Chloride 101 mmol/L (98-107); Estimated CRCL calculation 124 ml/min; Estimated Glomerular Filt Rate > 60; Glucose 93 mg/dL (65-110); Magnesium 2.3 mg/dL (1.6-2.3); Potassium 4.2 mmol/L (3.4-5.0); Sodium 138 mmol/L (137-145); Total Protein 6.1 g/dL (6.3-8.2)
--- NOTE | 2025-08-07 08:03 | PM.IMPN ---
Progress Note: A&P Assessment and Plan (1) Hypertension: Code(s): I10 - Essential (primary) hypertension Status: Acute (2) Ileus: Code(s): K56.7 - Ileus, unspecified Status: Acute (3) Leukocytosis: Code(s): D72.829 - Elevated white blood cell count, unspecified Status: Acute (4) Sepsis: Code(s): A41.9 - Sepsis, unspecified organism Status: Acute (5) Right foot ulcer: Code(s): L97.519 - Non-pressure chronic ulcer of other part of right foot with unspecified severity Status: Acute (6) Decubitus ulcer, infected: Code(s): L89.90 - Pressure ulcer of unspecified site, unspecified stage; L08.9 - Local infection of the skin and subcutaneous tissue, unspecified Status: Acute (7) Altered mental status: Code(s): R41.82 - Altered mental status, unspecified Status: Acute (8) COPD (chronic obstructive pulmonary disease): Code(s): J44.9 - Chronic obstructive pulmonary disease, unspecified Status: Chronic (9) Acute respiratory distress: Code(s): R06.03 - Acute respiratory distress Status: Acute Plan 69-year-old bed-bound group home patient presents with altered mental status, He has a decubitus ulcer to the sacrum and left heel, right lateral foot with some purulence.General Surgery was consulted.s/p Sharp excisional debridement stage IV sacral decubitus ulcer including skin, subcutaneous fat, muscle, and fascia/tendon measuring 15 cm x 8 cm. # Sepsis: Likely secondary to a UTI or decubitus ulcer to sacrum Chest x-ray was clear Influenza, asthma, COVID were negative He was initially started on cefepime vancomycin and metronidazole. Currently he is on Zyvox, Levaquin, Flagyl Still has leukocytosis, fluctuating Appreciate ID help Local wound care as per surgery recommendation Blood pressure remains soft Continue with midodrine Fluconazole has been stopped as urine culture was growing Nehal as per ID recommendation Patient has chronic indwelling catheter # Acute respiratory distress: Continues to be on 4 L of O2 support ? Unclear etiology Blood pressure remains soft, will not tolerate Lasix Already on Xarelto, unlikely to be PE CTA which shows mild pulmonary edema and no PE Elevated BNP Echo EF 60-65% grade 1 diastolic dysfunction trace tricuspid regurgitation Will gently diurese with Lasix as tolerated add albumin for blood pressure Will recheck chest x-ray as oxygen requirement slightly up today. # Altered mental status: Head CT showing age-related changes including mild-moderate diffuse volume loss and moderate scattered white matter hypoattenuation consistent with chronic small-vessel ischemic disease but no acute findings. Ammonia level negative. TSH normal. UDS negative. B12 level low at 231. Folate normal. Vit D <12.8. Likely has metabolic encephalopathy due to UTI, sacral infection, B12 and VitD deficiency Symptoms improving. Fall precautions. c/w B12 and VitD # Ileus: Ileus -CT scan showed probable ileus related to sepsis. Serial exams and Abdominal x-rays showing ileus has resolved. Constipation Continue with lactulose Added MiraLax and Senokot # Multiple sclerosis: Patient on interferon prior to admission. Mental status improving. Neurology following Resume Interferon when infection better controlled. Monitor mental status. # COPD (chronic obstructive pulmonary disease): No wheezing appreciated but he remains on oxygen. Continue Trelegy. Albuterol p.r.n.. Echo and CTA as reviewed above # Code status: Full # DVT prophylaxis: Xarelto # Disposition: Pending improvement Subjective Date/time seen: 08/07/25 08:03 Interval history: no overnight events. No new complaints. Blood pressure is stable. Still remains on oxygen. Review of Systems Review of Systems: All systems reviewed & are unremarkable except as noted in HPI and below Exam Narrative: Gen - No acute distress Chest -B/L decreased breath sounds B/L CV - normal sinus rhythm Abd -soft, non tender, BS+ Ext - 1+ pedal edema. Neuro - alert Psych - depressed mood Skin - Warm and dry. Right lateral foot, bilateral heel, and right hip and sacral area dressings are clean, dry and intact. Objective Data Vital Signs Vital Signs: Vital Signs - 24 hr 08/06/25 09:25 08/06/25 09:48 08/06/25 14:00 Temperature 96.6 F L Pulse Rate 54 L Respiratory Rate 18 18 Blood Pressure 110/68 Pulse Oximetry 91 92 96 Oxygen Delivery Nasal Cannula Nasal Cannula Oxygen Flow Rate 3 3 08/06/25 20:00 08/06/25 22:00 08/07/25 06:00 Temperature 97.9 F 97.9 F Pulse Rate 54 L 54 L 74 Respiratory Rate 20 20 16 Blood Pressure 131/63 148/84 H Pulse Oximetry 93 93 94 Oxygen Delivery Nasal Cannula Oxygen Flow Rate 4 Intake/Output Intake/Output: Intake & Output 08/04/25 08/05/25 08/06/25 08/07/25 23:59 23:59 23:59 23:59 Intake Total 600 1260 1200 450 Output Total 1500 1125 1300 300 Balance -900 135 -100 150 Meds/Results Medications: Active Medications Generic Name Dose Route Start Last Admin Trade Name Freq PRN Reason Stop Dose Admin Acetaminophen 650 mg 08/02/25 16:13 08/05/25 12:44 Acetaminophen 325 Mg Tablet PO 650 mg Q6H PRN Administration Mild Pain (1-3) or Fever Albuterol/Ipratropium 3 ml 07/27/25 17:46 07/27/25 18:34 Ipratropium 0.5 Mg/Albuterol Sulfate 2.5 Mg Ampul.Neb 3 Ml INHALATION 3 ml Q6HRT PRN Administration Shortness Of Breath Ascorbic Acid 500 mg 07/29/25 09:00 08/06/25 09:25 Ascorbic Acid 500 Mg Tablet PO 500 mg DAILY MICAH Administration Cyanocobalamin 1,000 mcg 07/29/25 09:00 08/06/25 09:25 Cyanocobalamin 1,000 Mcg Tablet PO 1,000 mcg QAM MICAH Administration Dextrose 12.5 gm 07/26/25 22:31 Dextrose 50% 25 Gm/50 Ml Syringe IV PUSH PRN PRN Hypoglycemia Protocol Diphenhydramine HCl 25 mg 07/27/25 17:10 Diphenhydramine Hcl Inj 50 Mg/Ml Vial IV PUSH Q6H PRN Itching Fluticasone/Umeclidinium/Vilanterol 1 puff 07/27/25 08:00 08/06/25 12:34 Fluticasone/Umeclidin/Vilanter 100-62.5-25 Mcg Ellipta INHALATION Not Given DAILYRT MICAH Furosemide 20 mg 08/05/25 14:00 08/06/25 16:35 Furosemide 20 Mg Tablet PO 20 mg BID MICAH Administration Glucose 15 gm 07/26/25 22:31 Glucose Oral Gel 15 Gm Of Glucse In 37.5 Gm Tube PO PRN PRN Hypoglycemia Protocol Dextrose 1,000 mls @ 100 mls/hr 07/26/25 22:31 Dextrose 5% 1,000 Ml IVPB PRN PRN Hypoglycemia Protocol Albumin Human 200 mls @ 60 mls/hr 08/05/25 14:00 08/07/25 06:04 Albutein IVPB 60 mls/hr Q8HR MICAH Administration Lactulose 20 gm 08/01/25 17:00 08/06/25 16:34 Lactulose 20 Gm/30 Ml Udc PO 20 gm BID MICAH Administration Levofloxacin 750 mg 08/04/25 09:00 08/06/25 09:25 Levofloxacin 750 Mg Tablet PO 08/14/25 09:01 750 mg DAILY MICAH Administration Linezolid 600 mg 08/01/25 12:00 08/06/25 21:50 Linezolid 600 Mg Tablet PO 08/14/25 21:01 600 mg Q12HR MICAH Administration Metronidazole 500 mg 07/29/25 22:00 08/07/25 06:04 Metronidazole 500 Mg Tablet PO 08/14/25 22:01 500 mg Q8HR MICAH Administration Midodrine 10 mg 08/03/25 13:00 08/06/25 16:35 Midodrine Hcl 2.5 Mg Tablet PO 10 mg TID MICAH Administration Miscellaneous Information 1 each 08/05/25 00:01 Renewboth Hydromorphone Orders. Per [employer] Procedure, It Will Discontinue If Not Renewed XX 09/04/25 00:00 CLARIFY MICAH Montelukast Sodium 10 mg 07/28/25 21:00 08/06/25 21:50 Montelukast Sodium 10 Mg Tablet PO 10 mg HS MICAH Administration Multi-Ingred Cream/Lotion/Oil/Oint 1 applic 07/31/25 17:45 08/06/25 09:26 Eucerin Cream 120 Gm Jar TOPICAL 1 applic DAILY MICAH Administration Naloxone HCl 0.1 mg 07/27/25 17:10 Naloxone Hcl 0.4 Mg/Ml Vial IV PUSH Q2M PRN Opiate Reversal Ondansetron HCl 4 mg 07/27/25 17:10 08/05/25 00:18 Ondansetron Inj 4 Mg/2 Ml Vial IV PUSH 4 mg Q4H PRN Administration Nausea And Vomiting Polyethylene Glycol 17 gm 08/05/25 14:05 08/06/25 09:24 Polyethylene Glycol 3350 17 Gm Powd.Pack PO 17 gm QAM MICAH Administration Rivaroxaban 10 mg 07/29/25 17:00 08/06/25 16:35 Rivaroxaban 10 Mg Tablet PO 10 mg 1700 MICAH Administration Senna/Docusate Sodium 1 tab 08/05/25 21:00 08/06/25 21:50 Senna/Docusate Sodium Tablet PO 1 tab HS MICAH Administration Vitamin D 25 mcg 07/29/25 09:00 08/06/25 09:25 Cholecalciferol (Vitamin D3) 25 Mcg (1,000 Units) Tablet PO 25 mcg DAILY MICAH Administration Radiology Results: ITS Impressions Abdomen/Pelvis CT 07/26/25 18:25 IMPRESSION: 1. Small focal ulceration with mild inflammatory change involving the posterior soft tissues just below the coccyx. No drainable fluid collection identified. 2: Moderately distended small bowel and colon with air-fluid levels, consistent with ileus. Head CT 07/27/25 08:07 IMPRESSION: 1. Age-related changes including mild to moderate diffuse volume loss and moderate scattered white matter hypoattenuation consistent with chronic small vessel ischemic disease. No acute intracranial process. Chest X-Ray 07/31/25 13:21 IMPRESSION: 1. Left basilar atelectasis and/or airspace disease. 2. Small left effusion not excluded. 3. Suspect developing mild interstitial pulmonary edema. Abdomen X-Ray 08/02/25 18:50 IMPRESSION: 1. No acute findings. 2. No increased stool burden to suggest large volume constipation. Chest CTA 08/05/25 08:03 IMPRESSION: 1. No pulmonary embolus. 2. Mild pulmonary edema. 3. Small pleural effusions. 4. Mild emphysema. Labs Labs: Laboratory Results - last 24 hr 08/07/25 06:04 WBC 13.8 H RBC 3.13 L Hgb 9.2 L Hct 30.3 L MCV 96.8 MCH 29.4 MCHC 30.4 L RDW 15.6 H Plt Count 337 MPV 9.7 Immature Gran % (Auto) 0.7 H Neut % (Auto) 68.0 Lymph % (Auto) 21.8 [place] % (Auto) 6.2 Eos % (Auto) 2.9 Baso % (Auto) 0.4 Lymph # (Auto) 3.00 [place] # (Auto) 0.9 H Eos # (Auto) 0.4 H Baso # (Auto) 0.1 Abs Immat Gran (auto) 0.09 H Absolute Neuts (auto) 9.4 H Absolute Nucleated RBC 0.000 Nucleated RBC % 0.0 Sodium 138 Potassium 4.2 Chloride 101 Carbon Dioxide 28 Anion Gap 9 BUN 9 Creatinine 0.49 L Estim Creat Clear Calc 124 Estimated GFR > 60 Glucose 93 Calcium 8.7 Magnesium 2.3 Total Bilirubin 0.9 AST 29 ALT 33 Alkaline Phosphatase 120 Total Protein 6.1 L Albumin 3.9
[2025-08-07 08:35] VITALS: PULSE 69; RESP 16; O2SAT 90
[2025-08-07] MEDS: FLUTICASONE/UMECLIDIN/VILANTER 100-62.5-25 MCG ELLIPTA 1 PUFF INHALATION (08:35)
[2025-08-07] MEDS: CYANOCOBALAMIN 1,000 MCG TABLET 1000 MCG PO (09:19)
[2025-08-07] MEDS: FUROSEMIDE 20 MG TABLET PO ×2 (09:19→17:09)
[2025-08-07] MEDS: ASCORBIC ACID 500 MG TABLET PO (09:19)
[2025-08-07] MEDS: CHOLECALCIFEROL (VITAMIN D3) 25 MCG (1,000 UNITS) TABLET PO (09:19)
[2025-08-07 09:20] VITALS: O2SAT 91
[2025-08-07] MEDS: MIDODRINE HCL 2.5 MG TABLET 10 MG PO ×3 (09:20→17:09)
[2025-08-07] MEDS: EUCERIN CREAM 120 GM JAR 1 APPLIC TOPICAL (09:20)
[2025-08-07] MEDS: LINEZOLID 600 MG TABLET PO ×2 (09:20→21:52)
[2025-08-07] MEDS: ACETAMINOPHEN 325 MG TABLET 650 MG PO (09:22)
[2025-08-07 14:00] VITALS: BP 107/63; PULSE 81; RESP 18; TEMP 36.2; O2SAT 95
[2025-08-07] MEDS: RIVAROXABAN 10 MG TABLET PO (17:12)
[2025-08-07] MEDS: SENNA/DOCUSATE SODIUM TABLET 1 TAB PO (21:51)
[2025-08-07 21:52] VITALS: O2SAT 91
[2025-08-07] MEDS: MONTELUKAST SODIUM 10 MG TABLET PO (21:52)
[2025-08-07 22:00] VITALS: BP 125/62; PULSE 70; RESP 16; TEMP 36.4; O2SAT 91
[2025-08-08] VITALS (8 sets, daily range): BP systolic 122–166; BP diastolic 63–79; PULSE 74–98; RESP 14–26; TEMP 36.4–37.9; O2SAT 90–98
[2025-08-08] MEDS: ONDANSETRON INJ 4 MG/2 ML VIAL IV PUSH (00:19)
[2025-08-08 06:07] LABS: Hematocrit 31.0 % (42.0-52.0); Hemoglobin 9.5 g/dL (14.0-18.0); Immature Granulocyte Percent A 0.7 % (0-0.5); Lymphocytes Absolute Auto 2.86 K/mm3 (0.9-3.2); Mean Corpuscular HGB Conc 30.6 g/dl (32-36); Mean Corpuscular Hemoglobin 29.1 pg (26-34); Mean Corpuscular Volume 95.1 fl (80-100); Nucleated Red Blood Cells Absolute Auto 0.000 K/mm3 (0.0-0.012); Nucleated Red Blood Cells Perc 0.0 % (0.0-0.2); Platelet Count Result 309 k/mm3 (150-375); Red Blood Count 3.26 M/mm3 (4.6-6.20); White Blood Count 13.4 K/mm3 (4.5-10.0)
[2025-08-08 06:26] LABS: Alanine Aminotransferase 22 U/L (6-50); Albumin Level 4.3 g/dL (3.5-5.1); Alkaline Phosphatase 77 U/L (38-126); Anion Gap 10 mmol/L (4-12); Aspartate Amino Transferase 46 U/L (17-59); Bilirubin,Total 1.1 mg/dL (0.2-1.3); Blood Urea Nitrogen 9 mg/dL (9-20); Calcium 8.8 mg/dL (8.4-10.2); Carbon Dioxide 27 mmol/L (22-30); Chloride 100 mmol/L (98-107); Estimated CRCL calculation 127 ml/min; Estimated Glomerular Filt Rate > 60; Glucose 100 mg/dL (65-110); Magnesium 2.1 mg/dL (1.6-2.3); Potassium 3.6 mmol/L (3.4-5.0); Sodium 137 mmol/L (137-145); Total Protein 6.1 g/dL (6.3-8.2)
[2025-08-08] MEDS: ALBUMIN HUMAN 25% 25 GM/100 ML 200 ML IVPB ×3 (06:29→21:28)
[2025-08-08] MEDS: FLUTICASONE/UMECLIDIN/VILANTER 100-62.5-25 MCG ELLIPTA 1 PUFF INHALATION (07:37)
[2025-08-08] MEDS: CYANOCOBALAMIN 1,000 MCG TABLET 1000 MCG PO (08:56)
[2025-08-08] MEDS: CHOLECALCIFEROL (VITAMIN D3) 25 MCG (1,000 UNITS) TABLET PO (08:56)
[2025-08-08] MEDS: MIDODRINE HCL 2.5 MG TABLET 10 MG PO ×3 (08:56→18:17)
[2025-08-08] MEDS: EUCERIN CREAM 120 GM JAR 1 APPLIC TOPICAL (08:57)
[2025-08-08] MEDS: LACTULOSE 20 GM/30 ML UDC PO ×2 (08:57→18:16)
[2025-08-08] MEDS: LINEZOLID 600 MG TABLET PO (08:57)
[2025-08-08] MEDS: FUROSEMIDE 20 MG TABLET PO ×2 (08:57→18:15)
--- NOTE | 2025-08-08 10:52 | PCNFU ---
Nutrition Follow-Up Complete: Increased protein energy needs related to pressure injuries as evidenced by wound report Goal:Intakes adequate to support wound healing Pt currently meeting goal, continue with same goal Pt current nutrition is Regular, Ensure shakes QID, LAKESHA BID. Nutrition recommendation: continue with current plan of care Last recorded weight is 70.9 kg. Bowel Motility: +BM 08/07 Labs Reviewed: Hgb:9.5, HCt:31, Cr:0.47 Meds Noted: miralax, lovenox, VIt C Skin: multiptle pressure injuries Additional Notes: Pt continues on a regular diet, intake has improved to 100% of meals at this time, supplements continue for Ensure QID and LAKESHA BID. Encourage po intake of meals and supplements. Agree with orders. Monitoring diet orders, weights, labs, GI function, wounds, plan of care Follow up in 5 days
[2025-08-08] MEDS: ASCORBIC ACID 500 MG TABLET PO (12:52)
--- NOTE | 2025-08-08 14:19 | P.PNIM_ITS ---
Progress Note: A&P Assessment and Plan (1) Hypertension: Code(s): I10 - Essential (primary) hypertension Status: Acute (2) Ileus: Code(s): K56.7 - Ileus, unspecified Status: Acute (3) Leukocytosis: Code(s): D72.829 - Elevated white blood cell count, unspecified Status: Acute (4) Sepsis: Code(s): A41.9 - Sepsis, unspecified organism Status: Acute (5) Right foot ulcer: Code(s): L97.519 - Non-pressure chronic ulcer of other part of right foot with unspecified severity Status: Acute (6) Decubitus ulcer, infected: Code(s): L89.90 - Pressure ulcer of unspecified site, unspecified stage; L08.9 - Local infection of the skin and subcutaneous tissue, unspecified Status: Acute (7) Altered mental status: Code(s): R41.82 - Altered mental status, unspecified Status: Acute (8) COPD (chronic obstructive pulmonary disease): Code(s): J44.9 - Chronic obstructive pulmonary disease, unspecified Status: Chronic (9) Acute respiratory distress: Code(s): R06.03 - Acute respiratory distress Status: Acute Plan 69-year-old bed-bound care home patient presents with altered mental status, He has a decubitus ulcer to the sacrum and left heel, right lateral foot with some purulence.General Surgery was consulted.s/p Sharp excisional debridement stage IV sacral decubitus ulcer including skin, subcutaneous fat, muscle, and fascia/tendon measuring 15 cm x 8 cm. # Sepsis: Likely secondary to a UTI or decubitus ulcer to sacrum Chest x-ray was clear Influenza, asthma, COVID were negative He was initially started on cefepime vancomycin and metronidazole. Currently he is on Zyvox, Levaquin, Flagyl Still has leukocytosis, fluctuating Appreciate ID help Local wound care as per surgery recommendation Blood pressure remains soft Continue with midodrine Fluconazole has been stopped as urine culture was growing Nehal as per ID recommendation Patient has chronic indwelling catheter # Acute respiratory distress: Continues to be on 4 L of O2 support ? Unclear etiology Blood pressure remains soft, will not tolerate Lasix Already on Xarelto, unlikely to be PE CTA which shows mild pulmonary edema and no PE Elevated BNP Echo EF 60-65% grade 1 diastolic dysfunction trace tricuspid regurgitation Will gently diurese with Lasix as tolerated add albumin for blood pressure Repeat chest x-ray. # Altered mental status: Head CT showing age-related changes including mild-moderate diffuse volume loss and moderate scattered white matter hypoattenuation consistent with chronic small-vessel ischemic disease but no acute findings. Ammonia level negative. TSH normal. UDS negative. B12 level low at 231. Folate normal. Vit D <12.8. Likely has metabolic encephalopathy due to UTI, sacral infection, B12 and VitD deficiency Symptoms improving. Fall precautions. c/w B12 and VitD # Ileus: Ileus -CT scan showed probable ileus related to sepsis. Serial exams and Abdominal x-rays showing ileus has resolved. Constipation Continue with lactulose Added MiraLax and Senokot # Multiple sclerosis: Patient on interferon prior to admission. Mental status improving. Neurology following Resume Interferon when infection better controlled. Monitor mental status. # COPD (chronic obstructive pulmonary disease): No wheezing appreciated but he remains on oxygen. Continue Trelegy. Albuterol p.r.n.. Echo and CTA as reviewed above # Code status: Full # DVT prophylaxis: Xarelto # Disposition: Pending improvement Subjective Date/time seen: 08/08/25 14:19 Interval history: no overnight events. No new complaints. Blood pressure is stable. Still remains on oxygen. Review of Systems Review of Systems: All systems reviewed & are unremarkable except as noted in HPI and below Exam Narrative: Gen - No acute distress Chest -B/L decreased breath sounds B/L CV - normal sinus rhythm Abd -soft, non tender, BS+ Ext - 1+ pedal edema. Neuro - alert Psych - depressed mood Skin - Warm and dry. Right lateral foot, bilateral heel, and right hip and sacral area dressings are clean, dry and intact. Objective Data Vital Signs Vital Signs: Vital Signs - 24 hr 08/07/25 21:52 08/07/25 22:00 08/08/25 06:00 Temperature 97.6 F 97.6 F Pulse Rate 70 74 Respiratory Rate 16 14 Blood Pressure 125/62 122/63 Pulse Oximetry 91 91 94 Oxygen Delivery Nasal Cannula Oxygen Flow Rate 4.5 08/08/25 07:40 08/08/25 07:41 08/08/25 08:00 Temperature Pulse Rate 79 Respiratory Rate 18 Blood Pressure Pulse Oximetry 92 98 Oxygen Delivery Nasal Cannula Nasal Cannula Oxygen Flow Rate 4.5 4.5 Intake/Output Intake/Output: Intake & Output 08/05/25 08/06/25 08/07/25 08/08/25 23:59 23:59 23:59 23:59 Intake Total 1260 1200 1090 440 Output Total 1125 1300 500 500 Balance 135 -100 590 -60 Meds/Results Medications: Active Medications Generic Name Dose Route Start Last Admin Trade Name Freq PRN Reason Stop Dose Admin Acetaminophen 650 mg 08/02/25 16:13 08/07/25 09:22 Acetaminophen 325 Mg Tablet PO 650 mg Q6H PRN Administration Mild Pain (1-3) or Fever Albuterol/Ipratropium 3 ml 07/27/25 17:46 07/27/25 18:34 Ipratropium 0.5 Mg/Albuterol Sulfate 2.5 Mg Ampul.Neb 3 Ml INHALATION 3 ml Q6HRT PRN Administration Shortness Of Breath Ascorbic Acid 500 mg 07/29/25 09:00 08/08/25 12:52 Ascorbic Acid 500 Mg Tablet PO 500 mg DAILY MICAH Administration Cyanocobalamin 1,000 mcg 07/29/25 09:00 08/08/25 08:56 Cyanocobalamin 1,000 Mcg Tablet PO 1,000 mcg QAM MICAH Administration Dextrose 12.5 gm 07/26/25 22:31 Dextrose 50% 25 Gm/50 Ml Syringe IV PUSH PRN PRN Hypoglycemia Protocol Diphenhydramine HCl 25 mg 07/27/25 17:10 Diphenhydramine Hcl Inj 50 Mg/Ml Vial IV PUSH Q6H PRN Itching Fluticasone/Umeclidinium/Vilanterol 1 puff 07/27/25 08:00 08/08/25 07:37 Fluticasone/Umeclidin/Vilanter 100-62.5-25 Mcg Ellipta INHALATION 1 puff DAILYRT MICAH Administration Furosemide 20 mg 08/05/25 14:00 08/08/25 08:57 Furosemide 20 Mg Tablet PO 20 mg BID MICAH Administration Glucose 15 gm 07/26/25 22:31 Glucose Oral Gel 15 Gm Of Glucse In 37.5 Gm Tube PO PRN PRN Hypoglycemia Protocol Dextrose 1,000 mls @ 100 mls/hr 07/26/25 22:31 Dextrose 5% 1,000 Ml IVPB PRN PRN Hypoglycemia Protocol Albumin Human 200 mls @ 60 mls/hr 08/05/25 14:00 08/08/25 06:29 Albutein IVPB 60 mls/hr Q8HR MICAH Administration Lactulose 20 gm 08/01/25 17:00 08/08/25 08:57 Lactulose 20 Gm/30 Ml Udc PO 20 gm BID MICAH Administration Levofloxacin 750 mg 08/04/25 09:00 08/08/25 08:56 Levofloxacin 750 Mg Tablet PO 08/14/25 09:01 750 mg DAILY MICAH Administration Linezolid 600 mg 08/01/25 12:00 08/08/25 08:57 Linezolid 600 Mg Tablet PO 08/14/25 21:01 600 mg Q12HR MICAH Administration Midodrine 10 mg 08/03/25 13:00 08/08/25 08:56 Midodrine Hcl 2.5 Mg Tablet PO 10 mg TID MICAH Administration Miscellaneous Information 1 each 08/05/25 00:01 Renewboth Hydromorphone Orders. Per [employer] Procedure, It Will Discontinue If Not Renewed XX 09/04/25 00:00 CLARIFY MICAH Montelukast Sodium 10 mg 07/28/25 21:00 08/07/25 21:52 Montelukast Sodium 10 Mg Tablet PO 10 mg HS MICAH Administration Multi-Ingred Cream/Lotion/Oil/Oint 1 applic 07/31/25 17:45 08/08/25 08:57 Eucerin Cream 120 Gm Jar TOPICAL 1 applic DAILY MICAH Administration Naloxone HCl 0.1 mg 07/27/25 17:10 Naloxone Hcl 0.4 Mg/Ml Vial IV PUSH Q2M PRN Opiate Reversal Ondansetron HCl 4 mg 07/27/25 17:10 08/08/25 00:19 Ondansetron Inj 4 Mg/2 Ml Vial IV PUSH 4 mg Q4H PRN Administration Nausea And Vomiting Polyethylene Glycol 17 gm 08/05/25 14:05 08/08/25 08:57 Polyethylene Glycol 3350 17 Gm Powd.Pack PO 17 gm QAM MICAH Administration Rivaroxaban 10 mg 08/08/25 17:00 Rivaroxaban 10 Mg Tablet PO DAILY@1700 MICAH Senna/Docusate Sodium 1 tab 08/05/25 21:00 08/07/25 21:51 Senna/Docusate Sodium Tablet PO 1 tab HS MICAH Administration Vitamin D 25 mcg 07/29/25 09:00 08/08/25 08:56 Cholecalciferol (Vitamin D3) 25 Mcg (1,000 Units) Tablet PO 25 mcg DAILY MICAH Administration Radiology Results: ITS Impressions Abdomen/Pelvis CT 07/26/25 18:25 IMPRESSION: 1. Small focal ulceration with mild inflammatory change involving the posterior soft tissues just below the coccyx. No drainable fluid collection identified. 2: Moderately distended small bowel and colon with air-fluid levels, consistent with ileus. Head CT 07/27/25 08:07 IMPRESSION: 1. Age-related changes including mild to moderate diffuse volume loss and moderate scattered white matter hypoattenuation consistent with chronic small vessel ischemic disease. No acute intracranial process. Abdomen X-Ray 08/02/25 18:50 IMPRESSION: 1. No acute findings. 2. No increased stool burden to suggest large volume constipation. Chest CTA 08/05/25 08:03 IMPRESSION: 1. No pulmonary embolus. 2. Mild pulmonary edema. 3. Small pleural effusions. 4. Mild emphysema. Labs Labs: Laboratory Results - last 24 hr 08/08/25 05:55 WBC 13.4 H RBC 3.26 L Hgb 9.5 L Hct 31.0 L MCV 95.1 MCH 29.1 MCHC 30.6 L RDW 15.3 H Plt Count 309 MPV 9.4 Immature Gran % (Auto) 0.7 H Neut % (Auto) 70.1 Lymph % (Auto) 21.3 [place] % (Auto) 5.9 Eos % (Auto) 1.6 Baso % (Auto) 0.4 Lymph # (Auto) 2.86 [place] # (Auto) 0.8 H Eos # (Auto) 0.2 Baso # (Auto) 0.1 Abs Immat Gran (auto) 0.09 H Absolute Neuts (auto) 9.4 H Absolute Nucleated RBC 0.000 Nucleated RBC % 0.0 Sodium 137 Potassium 3.6 Chloride 100 Carbon Dioxide 27 Anion Gap 10 BUN 9 Creatinine 0.47 L Estim Creat Clear Calc 127 Estimated GFR > 60 Glucose 100 Calcium 8.8 Magnesium 2.1 Total Bilirubin 1.1 AST 46 ALT 22 Alkaline Phosphatase 77 Total Protein 6.1 L Albumin 4.3
--- NOTE | 2025-08-08 14:44 | WPDINFPN2 ---
Progress Note: A&P Assessment and Plan (1) Decubitus ulcer, infected: Code(s): L89.90 - Pressure ulcer of unspecified site, unspecified stage; L08.9 - Local infection of the skin and subcutaneous tissue, unspecified Status: Acute (2) Leukocytosis: Code(s): D72.829 - Elevated white blood cell count, unspecified Status: Acute (3) Right foot ulcer: Code(s): L97.519 - Non-pressure chronic ulcer of other part of right foot with unspecified severity Status: Acute (4) Multiple sclerosis: Code(s): G35 - Multiple sclerosis Status: Chronic Plan [facility] [address] [place] [address] Infectious Disease Consult Signed Patient: Bashir Gruber Sr. MR#: [id number] : 1955 Acct:[id number] Age: 69 ADM Date: 07/26/25 Loc: [id number] Assessment and Plan Assessment and plan (1) Decubitus ulcer, infected: Code(s): L89.90 - Pressure ulcer of unspecified site, unspecified stage; L08.9 - Local infection of the skin and subcutaneous tissue, unspecified Status: Acute Assessment and Plan: Patient with stage 4 sacral pressure ulcer s/p debridement. No obvious evidence of osteomyelitis presently (2) Right foot ulcer: Code(s): L97.519 - Non-pressure chronic ulcer of other part of right foot with unspecified severity Status: Acute Assessment and Plan: Management as per primary service (3) UTI (urinary tract infection): Code(s): N39.0 - Urinary tract infection, site not specified Status: Acute Assessment and Plan: Patient without symptoms of UTI Candiduria not likely to be pathogenic presently (4) Multiple sclerosis: Code(s): G35 - Multiple sclerosis Status: Chronic Assessment and Plan: Management as per priimary service Plan -Continue Levaquin and Zyvox. Hold Flagyl. Will get KUB. Voice months was sent to hospitalist. Abdominal: Exam follow-up. Will follow-up with patient tomorrow. -Discontinued Fluconazole on 08/03/25 as overall low suspicion for Nehal UTI presently -Continue offloading ulcers and local wound care Patient was seen via video telehealth consultation with the assistance of staff. Chart, data, and patient independently reviewed. Patient was located at [facility] while I was located in my [place] office. Received verbal consent from patient. Subjective Date/time seen: 08/08/25 14:44 Interval history: Does not feel well. More nauseated. For the past several days. States he has had a bowel movement but he is having a bowel movement actively during our exam. No feve Exam Narrative: Alert oriented to person place and time. With the aid of present, noted to have some abdominal distention. No rebound. No rash. Peripheral IV with some slight erythema. Currently exploring getting the IV site changed. Objective Data Vital Signs Vital Signs: Vital Signs - 24 hr 08/07/25 21:52 08/07/25 22:00 08/08/25 06:00 Temperature 36.4 C 36.4 C Pulse Rate 70 74 Respiratory Rate 16 14 Blood Pressure 125/62 122/63 Pulse Oximetry 91 91 94 Oxygen Delivery Nasal Cannula Oxygen Flow Rate 4.5 08/08/25 07:40 08/08/25 07:41 08/08/25 08:00 Temperature Pulse Rate 79 Respiratory Rate 18 Blood Pressure Pulse Oximetry 92 98 Oxygen Delivery Nasal Cannula Nasal Cannula Oxygen Flow Rate 4.5 4.5 Intake/Output Intake/Output: Intake & Output 08/05/25 08/06/25 08/07/25 08/08/25 23:59 23:59 23:59 23:59 Intake Total 1260 1200 1090 640 Output Total 1125 1300 500 500 Balance 135 -100 590 140 Meds/Results Medications: Active Medications Generic Name Dose Route Start Last Admin Trade Name Freq PRN Reason Stop Dose Admin Acetaminophen 650 mg 08/02/25 16:13 08/07/25 09:22 Acetaminophen 325 Mg Tablet PO 650 mg Q6H PRN Administration Mild Pain (1-3) or Fever Albuterol/Ipratropium 3 ml 07/27/25 17:46 07/27/25 18:34 Ipratropium 0.5 Mg/Albuterol Sulfate 2.5 Mg Ampul.Neb 3 Ml INHALATION 3 ml Q6HRT PRN Administration Shortness Of Breath Ascorbic Acid 500 mg 07/29/25 09:00 08/08/25 12:52 Ascorbic Acid 500 Mg Tablet PO 500 mg DAILY MICAH Administration Cyanocobalamin 1,000 mcg 07/29/25 09:00 08/08/25 08:56 Cyanocobalamin 1,000 Mcg Tablet PO 1,000 mcg QAM MICAH Administration Dextrose 12.5 gm 07/26/25 22:31 Dextrose 50% 25 Gm/50 Ml Syringe IV PUSH PRN PRN Hypoglycemia Protocol Diphenhydramine HCl 25 mg 07/27/25 17:10 Diphenhydramine Hcl Inj 50 Mg/Ml Vial IV PUSH Q6H PRN Itching Fluticasone/Umeclidinium/Vilanterol 1 puff 07/27/25 08:00 08/08/25 07:37 Fluticasone/Umeclidin/Vilanter 100-62.5-25 Mcg Ellipta INHALATION 1 puff DAILYRT MICAH Administration Furosemide 20 mg 08/05/25 14:00 08/08/25 08:57 Furosemide 20 Mg Tablet PO 20 mg BID MICAH Administration Glucose 15 gm 07/26/25 22:31 Glucose Oral Gel 15 Gm Of Glucse In 37.5 Gm Tube PO PRN PRN Hypoglycemia Protocol Dextrose 1,000 mls @ 100 mls/hr 07/26/25 22:31 Dextrose 5% 1,000 Ml IVPB PRN PRN Hypoglycemia Protocol Albumin Human 200 mls @ 60 mls/hr 08/05/25 14:00 08/08/25 14:32 Albutein IVPB 60 mls/hr Q8HR MICAH Administration Lactulose 20 gm 08/01/25 17:00 08/08/25 08:57 Lactulose 20 Gm/30 Ml Udc PO 20 gm BID MICAH Administration Levofloxacin 750 mg 08/04/25 09:00 08/08/25 08:56 Levofloxacin 750 Mg Tablet PO 08/14/25 09:01 750 mg DAILY MICAH Administration Linezolid 600 mg 08/01/25 12:00 08/08/25 08:57 Linezolid 600 Mg Tablet PO 08/14/25 21:01 600 mg Q12HR MICAH Administration Midodrine 10 mg 08/03/25 13:00 08/08/25 08:56 Midodrine Hcl 2.5 Mg Tablet PO 10 mg TID MICAH Administration Miscellaneous Information 1 each 08/05/25 00:01 Renewboth Hydromorphone Orders. Per [employer] Procedure, It Will Discontinue If Not Renewed XX 09/04/25 00:00 CLARIFY MICAH Montelukast Sodium 10 mg 07/28/25 21:00 08/07/25 21:52 Montelukast Sodium 10 Mg Tablet PO 10 mg HS MICAH Administration Multi-Ingred Cream/Lotion/Oil/Oint 1 applic 07/31/25 17:45 08/08/25 08:57 Eucerin Cream 120 Gm Jar TOPICAL 1 applic DAILY MICAH Administration Naloxone HCl 0.1 mg 07/27/25 17:10 Naloxone Hcl 0.4 Mg/Ml Vial IV PUSH Q2M PRN Opiate Reversal Ondansetron HCl 4 mg 07/27/25 17:10 08/08/25 00:19 Ondansetron Inj 4 Mg/2 Ml Vial IV PUSH 4 mg Q4H PRN Administration Nausea And Vomiting Polyethylene Glycol 17 gm 08/05/25 14:05 08/08/25 08:57 Polyethylene Glycol 3350 17 Gm Powd.Pack PO 17 gm QAM MICAH Administration Rivaroxaban 10 mg 08/08/25 17:00 Rivaroxaban 10 Mg Tablet PO DAILY@1700 MICAH Senna/Docusate Sodium 1 tab 08/05/25 21:00 08/07/25 21:51 Senna/Docusate Sodium Tablet PO 1 tab HS MICAH Administration Vitamin D 25 mcg 07/29/25 09:00 08/08/25 08:56 Cholecalciferol (Vitamin D3) 25 Mcg (1,000 Units) Tablet PO 25 mcg DAILY MICAH Administration Radiology Results: ITS Impressions Abdomen/Pelvis CT 07/26/25 18:25 IMPRESSION: 1. Small focal ulceration with mild inflammatory change involving the posterior soft tissues just below the coccyx. No drainable fluid collection identified. 2: Moderately distended small bowel and colon with air-fluid levels, consistent with ileus. Head CT 07/27/25 08:07 IMPRESSION: 1. Age-related changes including mild to moderate diffuse volume loss and moderate scattered white matter hypoattenuation consistent with chronic small vessel ischemic disease. No acute intracranial process. Abdomen X-Ray 08/02/25 18:50 IMPRESSION: 1. No acute findings. 2. No increased stool burden to suggest large volume constipation. Chest CTA 08/05/25 08:03 IMPRESSION: 1. No pulmonary embolus. 2. Mild pulmonary edema. 3. Small pleural effusions. 4. Mild emphysema. Labs Labs: Laboratory Results - last 24 hr 08/08/25 05:55 WBC 13.4 H RBC 3.26 L Hgb 9.5 L Hct 31.0 L MCV 95.1 MCH 29.1 MCHC 30.6 L RDW 15.3 H Plt Count 309 MPV 9.4 Immature Gran % (Auto) 0.7 H Neut % (Auto) 70.1 Lymph % (Auto) 21.3 [place] % (Auto) 5.9 Eos % (Auto) 1.6 Baso % (Auto) 0.4 Lymph # (Auto) 2.86 [place] # (Auto) 0.8 H Eos # (Auto) 0.2 Baso # (Auto) 0.1 Abs Immat Gran (auto) 0.09 H Absolute Neuts (auto) 9.4 H Absolute Nucleated RBC 0.000 Nucleated RBC % 0.0 Sodium 137 Potassium 3.6 Chloride 100 Carbon Dioxide 27 Anion Gap 10 BUN 9 Creatinine 0.47 L Estim Creat Clear Calc 127 Estimated GFR > 60 Glucose 100 Calcium 8.8 Magnesium 2.1 Total Bilirubin 1.1 AST 46 ALT 22 Alkaline Phosphatase 77 Total Protein 6.1 L Albumin 4.3
--- NOTE | 2025-08-08 14:54 | PCOTNOTE ---
Patient refused this A.M. , stated his daughter was coming , wait for therapy until she gets here. Patient was attempted again in the P.M. Patient's daughter not present and he states its to late, I'm to tired, not today.
--- NOTE | 2025-08-08 15:32 | PCPTNOTE ---
Patient refused treatment this session. Patient reported he can not do therapy later in the day and that it is too late for him to participate with therapy. Encouraged patient to participate with therapy and sitting edge of bed with patient adamantly refusing.
[2025-08-08] MEDS: RIVAROXABAN 10 MG TABLET PO (18:17)
--- NOTE | 2025-08-08 23:44 | PC.NURSE ---
Patient refused 2100 oral antibiotic Zyvox. Offered to put pill in applesauce or pudding, he declined. Requested all his medications to be given IV. Dr. Mao notified pt refusal of 2100 oral antibiotic Zyvox. Antibiotic D/C, replaced with IV Vancomycin.
--- NOTE | 2025-08-09 00:50 | PM.EVENT ---
Event Note Event Note Event Note: Patient has repeatedly refused to take linezolid, Senokot S, or montelukast by mouth. Unable to ascertain why, just says he does not want to take them. Counseling provided. Risks versus benefits of vancomycin discussed. Start vancomycin. Defer to morning team on further management.
[2025-08-09] MEDS: VANCOMYCIN 1,750 MG/NS 500 ML 1,750 MG/500 ML BAG 250 MG IVPB (02:04)
[2025-08-09 04:55] VITALS: BP 153/89; PULSE 87; RESP 14; TEMP 37.2; O2SAT 98
[2025-08-09] MEDS: ALBUMIN HUMAN 25% 25 GM/100 ML 200 ML IVPB ×2 (05:48→15:05)
[2025-08-09 06:23] LABS: Estimated CRCL calculation 135 ml/min; Estimated Glomerular Filt Rate > 60
[2025-08-09 08:00] VITALS: O2SAT 95
[2025-08-09] MEDS: LACTULOSE 20 GM/30 ML UDC PO ×2 (09:37→17:53)
[2025-08-09] MEDS: FUROSEMIDE 20 MG TABLET PO (09:39)
[2025-08-09] MEDS: MIDODRINE HCL 2.5 MG TABLET 10 MG PO ×3 (09:39→17:53)
[2025-08-09] MEDS: CHOLECALCIFEROL (VITAMIN D3) 25 MCG (1,000 UNITS) TABLET PO (09:39)
[2025-08-09] MEDS: CYANOCOBALAMIN 1,000 MCG TABLET 1000 MCG PO (09:40)
[2025-08-09] MEDS: ASCORBIC ACID 500 MG TABLET PO (09:40)
[2025-08-09 09:52] VITALS: O2SAT 90
[2025-08-09] MEDS: FLUTICASONE/UMECLIDIN/VILANTER 100-62.5-25 MCG ELLIPTA 1 PUFF INHALATION (09:52)
--- NOTE | 2025-08-09 10:47 | PCOTNOTE ---
Patient refused at this time, states had a horrible night, leave me alone , I need to sleep. Will try back later
--- NOTE | 2025-08-09 11:35 | WPDINFPN2 ---
Progress Note: A&P Assessment and Plan (1) Decubitus ulcer, infected: Code(s): L89.90 - Pressure ulcer of unspecified site, unspecified stage; L08.9 - Local infection of the skin and subcutaneous tissue, unspecified Status: Acute (2) Leukocytosis: Code(s): D72.829 - Elevated white blood cell count, unspecified Status: Acute (3) Right foot ulcer: Code(s): L97.519 - Non-pressure chronic ulcer of other part of right foot with unspecified severity Status: Acute (4) Multiple sclerosis: Code(s): G35 - Multiple sclerosis Status: Chronic Plan It Assessment and Plan Assessment and plan (1) Decubitus ulcer, infected: Code(s): L89.90 - Pressure ulcer of unspecified site, unspecified stage; L08.9 - Local infection of the skin and subcutaneous tissue, unspecified Status: Acute Assessment and Plan: Patient with stage 4 sacral pressure ulcer s/p debridement. No obvious evidence of osteomyelitis presently . Post debridement wound with healthy beefy red tissue. (2) Right foot ulcer: Code(s): L97.519 - Non-pressure chronic ulcer of other part of right foot with unspecified severity Status: Acute Assessment and Plan: Management as per primary service (3) UTI (urinary tract infection): Code(s): N39.0 - Urinary tract infection, site not specified Status: Acute Assessment and Plan: Patient without symptoms of UTI Candiduria not likely to be pathogenic presently (4) Multiple sclerosis: Code(s): G35 - Multiple sclerosis Status: Chronic Assessment and Plan: Management as per primary service Plan -- Continue current antibiotics. Presently receiving oral Levaquin and intravenous vancomycin. Discussed evening oral medications with Mr. Gruber: He is willing to resume oral linezolid if given with dinner. If he resumes oral Zyvox successfully, may discontinue IV vancomycin. -- Total course of antibiotics to date equals 15 days. Recommend continuing oral levofloxacin plus either oral linezolid verses IV vancomycin for 6 additional days. -- KUB results noted. Possible ileus. --Have Discontinued Fluconazole on 08/03/25 as overall low suspicion for Nehal UTI presently --Continue offloading ulcers and local wound care Patient was seen via video telehealth consultation with the assistance of staff. Chart, data, and patient independently reviewed. Patient was located at [facility] while I was located in my [place] office. Received verbal consent from patient. Subjective Date/time seen: 08/09/25 11:35 Interval history: 08/09/2025: Afebrile with stable vital signs. Currently receiving 5 L per nasal cannula. Creatinine 0.44. Today's chest x-ray with mild increased interstitial opacities and a few Fahad B lines of the bilateral lower lungs consistent with mild pulmonary edema , predominantly linear and bandlike opacities at the bilateral lower lung zones which favor atelectasis over pneumonia, small left pleural effusion, and mild emphysema. KUB with mildly dilated air filled loops of small bowel in the left abdomen--differential includes ileus or developing small bowel obstruction; Hardware noted in the fracture of proximal right femur; patchy opacities in the visualized lower lungs with possible small left-sided pleural effusion. He has been refusing HS oral medications while still taking morning meds. For this reason, oral linezolid has been changed to IV vancomycin. Sputum 08/06: Normal hanh at 24 hours. Review of Systems Review of Systems: All systems reviewed & are unremarkable except as noted in HPI and below Exam Narrative: Alert oriented And nontoxic. Frail in appearance, however. No tachycardia. No tachypnea. No respiratory difficulty. No rash. Peripheral IV changed to left arm secondary to early inflammation developing when peripheral IV was in his right arm. Objective Data Vital Signs Vital Signs: Vital Signs - 24 hr 08/08/25 14:00 08/08/25 20:18 08/08/25 20:30 Temperature 100.3 F H 98.0 F Pulse Rate 98 87 82 Respiratory Rate 26 H 16 20 Blood Pressure 166/79 H 147/76 H Pulse Oximetry 90 91 90 Oxygen Delivery Nasal Cannula Oxygen Flow Rate 4 Fraction of Inspired Oxygen 36 08/08/25 21:08 08/09/25 04:55 08/09/25 09:52 Temperature 98.9 F Pulse Rate 87 Respiratory Rate 14 Blood Pressure 153/89 H Pulse Oximetry 90 98 90 Oxygen Delivery Nasal Cannula Nasal Cannula Oxygen Flow Rate 4.5 5 Fraction of Inspired Oxygen Intake/Output Intake/Output: Intake & Output 08/06/25 08/07/25 08/08/25 08/09/25 23:59 23:59 23:59 23:59 Intake Total 1200 1090 1080 750 Output Total 1300 500 500 700 Balance -100 590 580 50 Meds/Results Medications: Active Medications Generic Name Dose Route Start Last Admin Trade Name Freq PRN Reason Stop Dose Admin Acetaminophen 650 mg 08/02/25 16:13 08/07/25 09:22 Acetaminophen 325 Mg Tablet PO 650 mg Q6H PRN Administration Mild Pain (1-3) or Fever Albuterol/Ipratropium 3 ml 07/27/25 17:46 07/27/25 18:34 Ipratropium 0.5 Mg/Albuterol Sulfate 2.5 Mg Ampul.Neb 3 Ml INHALATION 3 ml Q6HRT PRN Administration Shortness Of Breath Ascorbic Acid 500 mg 07/29/25 09:00 08/09/25 09:40 Ascorbic Acid 500 Mg Tablet PO 500 mg DAILY MICAH Administration Cyanocobalamin 1,000 mcg 07/29/25 09:00 08/09/25 09:40 Cyanocobalamin 1,000 Mcg Tablet PO 1,000 mcg QAM MICAH Administration Dextrose 12.5 gm 07/26/25 22:31 Dextrose 50% 25 Gm/50 Ml Syringe IV PUSH PRN PRN Hypoglycemia Protocol Diphenhydramine HCl 25 mg 07/27/25 17:10 Diphenhydramine Hcl Inj 50 Mg/Ml Vial IV PUSH Q6H PRN Itching Fluticasone/Umeclidinium/Vilanterol 1 puff 07/27/25 08:00 08/09/25 09:52 Fluticasone/Umeclidin/Vilanter 100-62.5-25 Mcg Ellipta INHALATION 1 puff DAILYRT MICAH Administration Furosemide 20 mg 08/05/25 14:00 08/09/25 09:39 Furosemide 20 Mg Tablet PO 20 mg BID MICAH Administration Glucose 15 gm 07/26/25 22:31 Glucose Oral Gel 15 Gm Of Glucse In 37.5 Gm Tube PO PRN PRN Hypoglycemia Protocol Dextrose 1,000 mls @ 100 mls/hr 07/26/25 22:31 Dextrose 5% 1,000 Ml IVPB PRN PRN Hypoglycemia Protocol Albumin Human 200 mls @ 60 mls/hr 08/05/25 14:00 08/09/25 05:48 Albutein IVPB 60 mls/hr Q8HR MICAH Administration Vancomycin HCl 1,500 mg in 500 mls @ 250 mls/hr 08/09/25 14:00 Vancomycin 1,500 Mg/Ns 500 Ml IVPB Q12H MICAH Lactulose 20 gm 08/01/25 17:00 08/09/25 09:37 Lactulose 20 Gm/30 Ml Udc PO 20 gm BID MICAH Administration Levofloxacin 750 mg 08/04/25 09:00 08/09/25 09:39 Levofloxacin 750 Mg Tablet PO 08/14/25 09:01 750 mg DAILY MICAH Administration Linezolid 600 mg 08/01/25 12:00 08/08/25 21:05 Linezolid 600 Mg Tablet PO Not Given On Hold: 08/08/25 23:03 Q12HR MICAH Midodrine 10 mg 08/03/25 13:00 08/09/25 09:39 Midodrine Hcl 2.5 Mg Tablet PO 10 mg TID MICAH Administration Miscellaneous Information 1 each 08/05/25 00:01 Renewboth Hydromorphone Orders. Per [employer] Procedure, It Will Discontinue If Not Renewed XX 09/04/25 00:00 CLARIFY MICAH Montelukast Sodium 10 mg 07/28/25 21:00 08/08/25 21:05 Montelukast Sodium 10 Mg Tablet PO Not Given HS MICAH Multi-Ingred Cream/Lotion/Oil/Oint 1 applic 07/31/25 17:45 08/08/25 08:57 Eucerin Cream 120 Gm Jar TOPICAL 1 applic DAILY MICAH Administration Naloxone HCl 0.1 mg 07/27/25 17:10 Naloxone Hcl 0.4 Mg/Ml Vial IV PUSH Q2M PRN Opiate Reversal Ondansetron HCl 4 mg 07/27/25 17:10 08/08/25 00:19 Ondansetron Inj 4 Mg/2 Ml Vial IV PUSH 4 mg Q4H PRN Administration Nausea And Vomiting Polyethylene Glycol 17 gm 08/05/25 14:05 08/09/25 09:40 Polyethylene Glycol 3350 17 Gm Powd.Pack PO 17 gm QAM MICAH Administration Rivaroxaban 10 mg 08/08/25 17:00 08/08/25 18:17 Rivaroxaban 10 Mg Tablet PO 10 mg DAILY@1700 MICAH Administration Senna/Docusate Sodium 1 tab 08/05/25 21:00 08/08/25 21:05 Senna/Docusate Sodium Tablet PO Not Given HS MICAH Vitamin D 25 mcg 07/29/25 09:00 10/07/25 09:39 Cholecalciferol (Vitamin D3) 25 Mcg (1,000 Units) Tablet PO 25 mcg DAILY MICAH Administration Radiology Results: ITS Impressions Abdomen/Pelvis CT 07/26/25 18:25 IMPRESSION: 1. Small focal ulceration with mild inflammatory change involving the posterior soft tissues just below the coccyx. No drainable fluid collection identified. 2: Moderately distended small bowel and colon with air-fluid levels, consistent with ileus. Head CT 07/27/25 08:07 IMPRESSION: 1. Age-related changes including mild to moderate diffuse volume loss and moderate scattered white matter hypoattenuation consistent with chronic small vessel ischemic disease. No acute intracranial process. Chest CTA 08/05/25 08:03 IMPRESSION: 1. No pulmonary embolus. 2. Mild pulmonary edema. 3. Small pleural effusions. 4. Mild emphysema. Abdomen X-Ray 08/08/25 15:57 IMPRESSION: 1. Mildly dilated air-filled loops of small bowel in the left abdomen. Differential includes ileus or developing small bowel obstruction. Consider a CT of the abdomen and pelvis for further assessment. 2.Hardware is noted in the fracture of the proximal right femur. Correlate clinically. 3.Patchy opacities in the visualized left lower lung. Possible small left-sided pleural effusion. Chest X-Ray 08/09/25 10:38 IMPRESSION: 1. Mild increased interstitial opacities and a few curly B-lines at the bilateral lower lungs consistent with mild pulmonary edema. 2. Predominantly linear and bandlike opacities at the bilateral lower lung zones and favor atelectasis over pneumonia. 3. Small left pleural effusion. 4. Mild emphysema. Labs Labs: Laboratory Results - last 24 hr 08/09/25 05:33 Creatinine 0.44 L Estim Creat Clear Calc 135 Estimated GFR > 60
[2025-08-09] MEDS: VANCOMYCIN 1,500 MG/NS 500 ML 1,500 MG/500 ML BAG 250 MG IVPB (13:08)
[2025-08-09 14:00] VITALS: BP 124/71; PULSE 117; RESP 16; TEMP 36.8; O2SAT 93
--- NOTE | 2025-08-09 16:17 | P.PNIM_ITS ---
Progress Note: A&P Assessment and Plan (1) Hypertension: Code(s): I10 - Essential (primary) hypertension Status: Acute (2) Ileus: Code(s): K56.7 - Ileus, unspecified Status: Acute (3) Leukocytosis: Code(s): D72.829 - Elevated white blood cell count, unspecified Status: Acute (4) Sepsis: Code(s): A41.9 - Sepsis, unspecified organism Status: Acute (5) Right foot ulcer: Code(s): L97.519 - Non-pressure chronic ulcer of other part of right foot with unspecified severity Status: Acute (6) Decubitus ulcer, infected: Code(s): L89.90 - Pressure ulcer of unspecified site, unspecified stage; L08.9 - Local infection of the skin and subcutaneous tissue, unspecified Status: Acute (7) Altered mental status: Code(s): R41.82 - Altered mental status, unspecified Status: Acute (8) COPD (chronic obstructive pulmonary disease): Code(s): J44.9 - Chronic obstructive pulmonary disease, unspecified Status: Chronic (9) Acute respiratory distress: Code(s): R06.03 - Acute respiratory distress Status: Acute Plan 69-year-old bed-bound snf patient presents with altered mental status, He has a decubitus ulcer to the sacrum and left heel, right lateral foot with some purulence.General Surgery was consulted.s/p Sharp excisional debridement stage IV sacral decubitus ulcer including skin, subcutaneous fat, muscle, and fascia/tendon measuring 15 cm x 8 cm. # Sepsis: Likely secondary to a UTI or decubitus ulcer to sacrum Chest x-ray was clear Influenza, asthma, COVID were negative He was initially started on cefepime vancomycin and metronidazole. Currently he is on Zyvox, Levaquin, Flagyl Still has leukocytosis, fluctuating Appreciate ID help Local wound care as per surgery recommendation Blood pressure remains soft Continue with midodrine Fluconazole has been stopped as urine culture was growing Nehal as per ID recommendation Patient has chronic indwelling catheter # Acute respiratory distress: Continues to be on 4 L of O2 support ? Unclear etiology Blood pressure remains soft, will not tolerate Lasix Already on Xarelto, unlikely to be PE CTA which shows mild pulmonary edema and no PE Elevated BNP Echo EF 60-65% grade 1 diastolic dysfunction trace tricuspid regurgitation Will gently diurese with Lasix as tolerated add albumin for blood pressure Repeat chest x-ray mild interstitial opacities few Fahad B lines at the bilat eral lower lungs consistent with mild pulmonary edema. Band like opacities at bilateral lower lung zones favor atelectasis versus pneumonia. # Altered mental status: Head CT showing age-related changes including mild-moderate diffuse volume loss and moderate scattered white matter hypoattenuation consistent with chronic small-vessel ischemic disease but no acute findings. Ammonia level negative. TSH normal. UDS negative. B12 level low at 231. Folate normal. Vit D <12.8. Likely has metabolic encephalopathy due to UTI, sacral infection, B12 and VitD deficiency Symptoms improving. Fall precautions. c/w B12 and VitD # Ileus: Ileus -CT scan showed probable ileus related to sepsis. Serial exams and Abdominal x-rays showing ileus has resolved. Constipation Continue with lactulose Added MiraLax and Senokot CT abdomen pelvis with inflammatory stranding surrounding the rectum where there is 6.6 cm ball of stool suggestive of stercoral colitis. Will give suppository # Multiple sclerosis: Patient on interferon prior to admission. Mental status improving. Neurology following Resume Interferon when infection better controlled. Monitor mental status. # COPD (chronic obstructive pulmonary disease): No wheezing appreciated but he remains on oxygen. Continue Trelegy. Albuterol p.r.n.. Echo and CTA as reviewed above # Code status: Full # DVT prophylaxis: Xarelto # Disposition: Pending improvement Subjective Date/time seen: 08/09/25 16:17 Interval history: no overnight events. Reports no known new complaints. Remains on oxygen. Denies any shortness of breath. No chest pain. No abdominal pain or nausea vomiting Review of Systems Review of Systems: All systems reviewed & are unremarkable except as noted in HPI and below Exam Narrative: Gen - No acute distress Chest -B/L decreased breath sounds B/L CV - normal sinus rhythm Abd -soft, non tender, BS+ Ext - 1+ pedal edema. Neuro - alert Psych - depressed mood Skin - Warm and dry. Right lateral foot, bilateral heel, and right hip and sacral area dressings are clean, dry and intact. Objective Data Vital Signs Vital Signs: Vital Signs - 24 hr 08/08/25 20:18 08/08/25 20:30 08/08/25 21:08 Temperature 98.0 F Pulse Rate 87 82 Respiratory Rate 16 20 Blood Pressure 147/76 H Pulse Oximetry 91 90 90 Oxygen Delivery Nasal Cannula Nasal Cannula Oxygen Flow Rate 4 4.5 Fraction of Inspired Oxygen 36 08/09/25 04:55 08/09/25 08:00 08/09/25 09:52 Temperature 98.9 F Pulse Rate 87 Respiratory Rate 14 Blood Pressure 153/89 H Pulse Oximetry 98 95 90 Oxygen Delivery Nasal Cannula Nasal Cannula Oxygen Flow Rate 4.5 5 Fraction of Inspired Oxygen 08/09/25 14:00 Temperature 98.3 F Pulse Rate 117 H Respiratory Rate 16 Blood Pressure 124/71 Pulse Oximetry 93 Oxygen Delivery Oxygen Flow Rate Fraction of Inspired Oxygen Intake/Output Intake/Output: Intake & Output 08/06/25 08/07/25 08/08/25 08/09/25 23:59 23:59 23:59 23:59 Intake Total 1200 1090 1080 1070 Output Total 1300 500 500 700 Balance -100 590 580 370 Meds/Results Medications: Active Medications Generic Name Dose Route Start Last Admin Trade Name Freq PRN Reason Stop Dose Admin Acetaminophen 650 mg 08/02/25 16:13 08/07/25 09:22 Acetaminophen 325 Mg Tablet PO 650 mg Q6H PRN Administration Mild Pain (1-3) or Fever Albuterol/Ipratropium 3 ml 07/27/25 17:46 07/27/25 18:34 Ipratropium 0.5 Mg/Albuterol Sulfate 2.5 Mg Ampul.Neb 3 Ml INHALATION 3 ml Q6HRT PRN Administration Shortness Of Breath Ascorbic Acid 500 mg 07/29/25 09:00 08/09/25 09:40 Ascorbic Acid 500 Mg Tablet PO 500 mg DAILY MICAH Administration Cyanocobalamin 1,000 mcg 07/29/25 09:00 08/09/25 09:40 Cyanocobalamin 1,000 Mcg Tablet PO 1,000 mcg QAM MICAH Administration Dextrose 12.5 gm 07/26/25 22:31 Dextrose 50% 25 Gm/50 Ml Syringe IV PUSH PRN PRN Hypoglycemia Protocol Diphenhydramine HCl 25 mg 07/27/25 17:10 Diphenhydramine Hcl Inj 50 Mg/Ml Vial IV PUSH Q6H PRN Itching Fluticasone/Umeclidinium/Vilanterol 1 puff 07/27/25 08:00 08/09/25 09:52 Fluticasone/Umeclidin/Vilanter 100-62.5-25 Mcg Ellipta INHALATION 1 puff DAILYRT MICAH Administration Furosemide 20 mg 08/05/25 14:00 08/09/25 09:39 Furosemide 20 Mg Tablet PO 20 mg BID MICAH Administration Glucose 15 gm 07/26/25 22:31 Glucose Oral Gel 15 Gm Of Glucse In 37.5 Gm Tube PO PRN PRN Hypoglycemia Protocol Dextrose 1,000 mls @ 100 mls/hr 07/26/25 22:31 Dextrose 5% 1,000 Ml IVPB PRN PRN Hypoglycemia Protocol Albumin Human 200 mls @ 60 mls/hr 08/05/25 14:00 08/09/25 15:05 Albutein IVPB 60 mls/hr Q8HR MICAH Administration Lactulose 20 gm 08/01/25 17:00 08/09/25 09:37 Lactulose 20 Gm/30 Ml Udc PO 20 gm BID MICAH Administration Levofloxacin 750 mg 08/04/25 09:00 08/09/25 09:39 Levofloxacin 750 Mg Tablet PO 08/15/25 09:01 750 mg DAILY MICAH Administration Linezolid 600 mg 08/09/25 17:00 Linezolid 600 Mg Tablet PO 08/15/25 17:01 BID MICAH Midodrine 10 mg 08/03/25 13:00 08/09/25 13:08 Midodrine Hcl 2.5 Mg Tablet PO 10 mg TID MICAH Administration Miscellaneous Information 1 each 08/05/25 00:01 Renewboth Hydromorphone Orders. Per [employer] Procedure, It Will Discontinue If Not Renewed XX 09/04/25 00:00 CLARIFY MICAH Montelukast Sodium 10 mg 07/28/25 21:00 08/08/25 21:05 Montelukast Sodium 10 Mg Tablet PO Not Given HS MICAH Multi-Ingred Cream/Lotion/Oil/Oint 1 applic 07/31/25 17:45 08/09/25 11:47 Eucerin Cream 120 Gm Jar TOPICAL Not Given DAILY MICAH Naloxone HCl 0.1 mg 07/27/25 17:10 Naloxone Hcl 0.4 Mg/Ml Vial IV PUSH Q2M PRN Opiate Reversal Ondansetron HCl 4 mg 07/27/25 17:10 08/08/25 00:19 Ondansetron Inj 4 Mg/2 Ml Vial IV PUSH 4 mg Q4H PRN Administration Nausea And Vomiting Polyethylene Glycol 17 gm 08/05/25 14:05 08/09/25 09:40 Polyethylene Glycol 3350 17 Gm Powd.Pack PO 17 gm QAM MICAH Administration Rivaroxaban 10 mg 08/08/25 17:00 08/08/25 18:17 Rivaroxaban 10 Mg Tablet PO 10 mg DAILY@1700 MICAH Administration Senna/Docusate Sodium 1 tab 08/05/25 21:00 08/08/25 21:05 Senna/Docusate Sodium Tablet PO Not Given HS [facility] Vitamin D 25 mcg 07/29/25 09:00 08/09/25 09:39 Cholecalciferol (Vitamin D3) 25 Mcg (1,000 Units) Tablet PO 25 mcg DAILY MICAH Administration Radiology Results: ITS Impressions Head CT 07/27/25 08:07 IMPRESSION: 1. Age-related changes including mild to moderate diffuse volume loss and moderate scattered white matter hypoattenuation consistent with chronic small vessel ischemic disease. No acute intracranial process. Chest CTA 08/05/25 08:03 IMPRESSION: 1. No pulmonary embolus. 2. Mild pulmonary edema. 3. Small pleural effusions. 4. Mild emphysema. Abdomen X-Ray 08/08/25 15:57 IMPRESSION: 1. Mildly dilated air-filled loops of small bowel in the left abdomen. Differential includes ileus or developing small bowel obstruction. Consider a CT of the abdomen and pelvis for further assessment. 2.Hardware is noted in the fracture of the proximal right femur. Correlate clinically. 3.Patchy opacities in the visualized left lower lung. Possible small left-sided pleural effusion. Chest X-Ray 08/09/25 10:38 IMPRESSION: 1. Mild increased interstitial opacities and a few curly B-lines at the bilateral lower lungs consistent with mild pulmonary edema. 2. Predominantly linear and bandlike opacities at the bilateral lower lung zones and favor atelectasis over pneumonia. 3. Small left pleural effusion. 4. Mild emphysema. Abdomen/Pelvis CT 08/09/25 13:20 IMPRESSION: 1. Emphysema with small bilateral pleural effusions and dependent compressive atelectasis in the bilateral lower lobes. 2. Inflammatory stranding surrounding the rectum where there is a 6.6 cm ball of stool suggestive of stercoral colitis. 3. Bladder wall thickening with some additional stranding in the surrounding fat suspicious for cystitis. Correlate with urinalysis. 4. Small sliding-type hiatal hernia. Labs Labs: Laboratory Results - last 24 hr 08/09/25 05:33 Creatinine 0.44 L Estim Creat Clear Calc 135 Estimated GFR > 60
[2025-08-09] MEDS: FUROSEMIDE INJ 40 MG/4 ML VIAL 20 MG IV PUSH (17:53)
[2025-08-09] MEDS: LINEZOLID 600 MG TABLET PO (17:53)
[2025-08-09] MEDS: BISACODYL 10 MG SUPPOSITORY RECTAL (17:53)
[2025-08-09] MEDS: RIVAROXABAN 10 MG TABLET PO (17:54)
[2025-08-09 20:00] VITALS: O2SAT 93
[2025-08-09 21:15] VITALS: BP 126/76; PULSE 88; RESP 20; TEMP 37; O2SAT 93
[2025-08-09] MEDS: SENNA/DOCUSATE SODIUM TABLET 1 TAB PO (21:36)
[2025-08-09] MEDS: MONTELUKAST SODIUM 10 MG TABLET PO (21:37)
[2025-08-10 06:00] VITALS: BP 119/73; PULSE 89; RESP 20; TEMP 36.4; O2SAT 94
[2025-08-10 06:32] LABS: Hematocrit 32.5 % (42.0-52.0); Hemoglobin 10.1 g/dL (14.0-18.0); Immature Granulocyte Percent A 0.8 % (0-0.5); Lymphocytes Absolute Auto 2.82 K/mm3 (0.9-3.2); Mean Corpuscular HGB Conc 31.1 g/dl (32-36); Mean Corpuscular Hemoglobin 29.2 pg (26-34); Mean Corpuscular Volume 93.9 fl (80-100); Nucleated Red Blood Cells Absolute Auto 0.000 K/mm3 (0.0-0.012); Nucleated Red Blood Cells Perc 0.0 % (0.0-0.2); Platelet Count Result 301 k/mm3 (150-375); Red Blood Count 3.46 M/mm3 (4.6-6.20); White Blood Count 14.4 K/mm3 (4.5-10.0)
[2025-08-10 06:43] LABS: Alanine Aminotransferase 17 U/L (6-50); Albumin Level 4.5 g/dL (3.5-5.1); Alkaline Phosphatase 89 U/L (38-126); Anion Gap 9 mmol/L (4-12); Aspartate Amino Transferase 26 U/L (17-59); Bilirubin,Total 1.0 mg/dL (0.2-1.3); Blood Urea Nitrogen 9 mg/dL (9-20); Calcium 9.1 mg/dL (8.4-10.2); Carbon Dioxide 30 mmol/L (22-30); Chloride 101 mmol/L (98-107); Estimated CRCL calculation 126 ml/min; Estimated Glomerular Filt Rate > 60; Glucose 117 mg/dL (65-110); Magnesium 2.0 mg/dL (1.6-2.3); Potassium 3.1 mmol/L (3.4-5.0); Sodium 140 mmol/L (137-145); Total Protein 6.4 g/dL (6.3-8.2)
[2025-08-10 08:00] VITALS: O2SAT 95
[2025-08-10 08:32] VITALS: PULSE 82; RESP 20; O2SAT 95
[2025-08-10] MEDS: FLUTICASONE/UMECLIDIN/VILANTER 100-62.5-25 MCG ELLIPTA 1 PUFF INHALATION (08:32)
[2025-08-10] MEDS: MIDODRINE HCL 2.5 MG TABLET 10 MG PO ×3 (10:22→17:42)
[2025-08-10] MEDS: LINEZOLID 600 MG TABLET PO ×2 (10:22→17:42)
[2025-08-10] MEDS: CYANOCOBALAMIN 1,000 MCG TABLET 1000 MCG PO (10:22)
[2025-08-10] MEDS: ASCORBIC ACID 500 MG TABLET PO (10:22)
[2025-08-10] MEDS: CHOLECALCIFEROL (VITAMIN D3) 25 MCG (1,000 UNITS) TABLET PO (10:22)
[2025-08-10] MEDS: FUROSEMIDE INJ 40 MG/4 ML VIAL 20 MG IV PUSH ×2 (10:22→17:42)
[2025-08-10] MEDS: LACTULOSE 20 GM/30 ML UDC PO ×2 (10:23→17:45)
[2025-08-10] MEDS: EUCERIN CREAM 120 GM JAR 1 APPLIC TOPICAL (13:03)
[2025-08-10 13:55] VITALS: BP 134/74; PULSE 89; RESP 18; TEMP 37.1; O2SAT 93
--- NOTE | 2025-08-10 16:23 | WPDINFPN2 ---
Progress Note: A&P Assessment and Plan (1) Decubitus ulcer, infected: Code(s): L89.90 - Pressure ulcer of unspecified site, unspecified stage; L08.9 - Local infection of the skin and subcutaneous tissue, unspecified Status: Acute (2) Leukocytosis: Code(s): D72.829 - Elevated white blood cell count, unspecified Status: Acute (3) Right foot ulcer: Code(s): L97.519 - Non-pressure chronic ulcer of other part of right foot with unspecified severity Status: Acute (4) Multiple sclerosis: Code(s): G35 - Multiple sclerosis Status: Chronic Plan It Assessment and Plan Assessment and plan (1) Decubitus ulcer, infected: Code(s): L89.90 - Pressure ulcer of unspecified site, unspecified stage; L08.9 - Local infection of the skin and subcutaneous tissue, unspecified Status: Acute Assessment and Plan: Patient with stage 4 sacral pressure ulcer s/p debridement. No obvious evidence of osteomyelitis presently . Post debridement wound with healthy beefy red tissue. -- with some nausea/ vomiting while on antibiotic therapy. Monitor for possible ileus on KUB 08/08/2025. (2) Right foot ulcer: Code(s): L97.519 - Non-pressure chronic ulcer of other part of right foot with unspecified severity Status: Acute Assessment and Plan: Management as per primary service (3) UTI (urinary tract infection): Code(s): N39.0 - Urinary tract infection, site not specified Status: Acute Assessment and Plan: Patient without symptoms of UTI Candiduria not likely to be pathogenic presently (4) Multiple sclerosis: Code(s): G35 - Multiple sclerosis Status: Chronic Assessment and Plan: Management as per primary service Plan -- Continue oral Levaquin, IV vanc plus Zyvox. Attempting to adjust medication timing to see if she develops nausea. Continue monitor for any presence of ileus. Expect additional week of antibiotics with Levaquin plus Zyvox. Will continue follow mental status and nausea. -Wound care /offloading per wound care team Patient was seen via video telehealth consultation with the assistance of staff. Chart, data, and patient independently reviewed. Patient was located at [facility] while I was located in my [place] office. Received verbal consent from patient. Subjective Date/time seen: 08/10/25 16:23 Interval history: Less nausea today. Alert but does tend to laugh after every answer he has. Discussed with rounder. Denies any pain. Exam Narrative: Alert oriented to person place and time. No abdominal distension presently. Wound offloaded. No rash. Objective Data Vital Signs Vital Signs: Vital Signs - 24 hr 08/09/25 20:00 08/09/25 21:15 08/10/25 06:00 Temperature 37.0 C 36.4 C Pulse Rate 88 89 Respiratory Rate 20 20 Blood Pressure 126/76 119/73 Pulse Oximetry 93 93 94 Oxygen Delivery Oxygen Flow Rate 5 08/10/25 08:00 08/10/25 08:32 08/10/25 08:32 Temperature Pulse Rate 82 82 Respiratory Rate 20 20 Blood Pressure Pulse Oximetry 95 95 Oxygen Delivery Nasal Cannula Nasal Cannula Oxygen Flow Rate 3 5 08/10/25 13:55 Temperature 37.1 C Pulse Rate 89 Respiratory Rate 18 Blood Pressure 134/74 Pulse Oximetry 93 Oxygen Delivery Oxygen Flow Rate Intake/Output Intake/Output: Intake & Output 08/07/25 08/08/25 08/09/25 08/10/25 23:59 23:59 23:59 23:59 Intake Total 1090 1080 1170 730 Output Total 687 296 7443 400 Balance 590 580 70 330 Meds/Results Medications: Active Medications Generic Name Dose Route Start Last Admin Trade Name Freq PRN Reason Stop Dose Admin Acetaminophen 650 mg 08/02/25 16:13 08/07/25 09:22 Acetaminophen 325 Mg Tablet PO 650 mg Q6H PRN Administration Mild Pain (1-3) or Fever Albuterol/Ipratropium 3 ml 07/27/25 17:46 07/27/25 18:34 Ipratropium 0.5 Mg/Albuterol Sulfate 2.5 Mg Ampul.Neb 3 Ml INHALATION 3 ml Q6HRT PRN Administration Shortness Of Breath Ascorbic Acid 500 mg 07/29/25 09:00 08/10/25 10:22 Ascorbic Acid 500 Mg Tablet PO 500 mg DAILY MICAH Administration Bisacodyl 10 mg 08/10/25 09:00 Bisacodyl 10 Mg Suppository RECTAL QAM PRN Constipation Cyanocobalamin 1,000 mcg 07/29/25 09:00 08/10/25 10:22 Cyanocobalamin 1,000 Mcg Tablet PO 1,000 mcg QAM MICAH Administration Dextrose 12.5 gm 07/26/25 22:31 Dextrose 50% 25 Gm/50 Ml Syringe IV PUSH PRN PRN Hypoglycemia Protocol Diphenhydramine HCl 25 mg 07/27/25 17:10 Diphenhydramine Hcl Inj 50 Mg/Ml Vial IV PUSH Q6H PRN Itching Fluticasone/Umeclidinium/Vilanterol 1 puff 07/27/25 08:00 08/10/25 08:32 Fluticasone/Umeclidin/Vilanter 100-62.5-25 Mcg Ellipta INHALATION 1 puff DAILYRT MICAH Administration Furosemide 20 mg 08/09/25 17:00 08/10/25 10:22 Furosemide Inj 40 Mg/4 Ml Vial IV PUSH 20 mg BID MICAH Administration Glucose 15 gm 07/26/25 22:31 Glucose Oral Gel 15 Gm Of Glucse In 37.5 Gm Tube PO PRN PRN Hypoglycemia Protocol Dextrose 1,000 mls @ 100 mls/hr 07/26/25 22:31 Dextrose 5% 1,000 Ml IVPB PRN PRN Hypoglycemia Protocol Lactulose 20 gm 08/01/25 17:00 08/10/25 10:23 Lactulose 20 Gm/30 Ml Udc PO 20 gm BID MICAH Administration Levofloxacin 750 mg 08/04/25 09:00 08/10/25 10:22 Levofloxacin 750 Mg Tablet PO 08/15/25 09:01 750 mg DAILY MICHA Administration Linezolid 600 mg 08/09/25 17:00 08/10/25 10:22 Linezolid 600 Mg Tablet PO 08/15/25 17:01 600 mg BID MICAH Administration Midodrine 10 mg 08/03/25 13:00 08/10/25 12:58 Midodrine Hcl 2.5 Mg Tablet PO 10 mg TID MICAH Administration Montelukast Sodium 10 mg 07/28/25 21:00 08/09/25 21:37 Montelukast Sodium 10 Mg Tablet PO 10 mg HS MICAH Administration Multi-Ingred Cream/Lotion/Oil/Oint 1 applic 07/31/25 17:45 08/10/25 13:03 Eucerin Cream 120 Gm Jar TOPICAL 1 applic DAILY MICAH Administration Naloxone HCl 0.1 mg 07/27/25 17:10 Naloxone Hcl 0.4 Mg/Ml Vial IV PUSH Q2M PRN Opiate Reversal Ondansetron HCl 4 mg 07/27/25 17:10 08/08/25 00:19 Ondansetron Inj 4 Mg/2 Ml Vial IV PUSH 4 mg Q4H PRN Administration Nausea And Vomiting Polyethylene Glycol 17 gm 08/05/25 14:05 08/10/25 10:23 Polyethylene Glycol 3350 17 Gm Powd.Pack PO 17 gm QAM MICAH Administration Rivaroxaban 10 mg 08/08/25 17:00 08/09/25 17:54 Rivaroxaban 10 Mg Tablet PO 10 mg DAILY@1700 MICAH Administration Senna/Docusate Sodium 1 tab 08/05/25 21:00 08/09/25 21:36 Senna/Docusate Sodium Tablet PO 1 tab HS MICAH Administration Vitamin D 25 mcg 07/29/25 09:00 08/10/25 10:22 Cholecalciferol (Vitamin D3) 25 Mcg (1,000 Units) Tablet PO 25 mcg DAILY MICAH Administration Radiology Results: ITS Impressions Head CT 07/27/25 08:07 IMPRESSION: 1. Age-related changes including mild to moderate diffuse volume loss and moderate scattered white matter hypoattenuation consistent with chronic small vessel ischemic disease. No acute intracranial process. Chest CTA 08/05/25 08:03 IMPRESSION: 1. No pulmonary embolus. 2. Mild pulmonary edema. 3. Small pleural effusions. 4. Mild emphysema. Abdomen X-Ray 08/08/25 15:57 IMPRESSION: 1. Mildly dilated air-filled loops of small bowel in the left abdomen. Differential includes ileus or developing small bowel obstruction. Consider a CT of the abdomen and pelvis for further assessment. 2.Hardware is noted in the fracture of the proximal right femur. Correlate clinically. 3.Patchy opacities in the visualized left lower lung. Possible small left-sided pleural effusion. Chest X-Ray 08/09/25 10:38 IMPRESSION: 1. Mild increased interstitial opacities and a few curly B-lines at the bilateral lower lungs consistent with mild pulmonary edema. 2. Predominantly linear and bandlike opacities at the bilateral lower lung zones and favor atelectasis over pneumonia. 3. Small left pleural effusion. 4. Mild emphysema. Abdomen/Pelvis CT 08/09/25 13:20 IMPRESSION: 1. Emphysema with small bilateral pleural effusions and dependent compressive atelectasis in the bilateral lower lobes. 2. Inflammatory stranding surrounding the rectum where there is a 6.6 cm ball of stool suggestive of stercoral colitis. 3. Bladder wall thickening with some additional stranding in the surrounding fat suspicious for cystitis. Correlate with urinalysis. 4. Small sliding-type hiatal hernia. Labs Labs: Laboratory Results - last 24 hr 08/10/25 05:55 WBC 14.4 H RBC 3.46 L Hgb 10.1 L Hct 32.5 L MCV 93.9 MCH 29.2 MCHC 31.1 L RDW 15.8 H Plt Count 301 MPV 9.5 Immature Gran % (Auto) 0.8 H Neut % (Auto) 66.0 Lymph % (Auto) 19.5 Kidder % (Auto) 8.0 Eos % (Auto) 5.2 H Baso % (Auto) 0.5 Lymph # (Auto) 2.82 Kidder # (Auto) 1.2 H Eos # (Auto) 0.8 H Baso # (Auto) 0.1 Abs Immat Gran (auto) 0.11 H Absolute Neuts (auto) 9.5 H Absolute Nucleated RBC 0.000 Nucleated RBC % 0.0 Sodium 140 Potassium 3.1 L Chloride 101 Carbon Dioxide 30 Anion Gap 9 BUN 9 Creatinine 0.48 L Estim Creat Clear Calc 126 Estimated GFR > 60 Glucose 117 H Calcium 9.1 Magnesium 2.0 Total Bilirubin 1.0 AST 26 ALT 17 Alkaline Phosphatase 89 Total Protein 6.4 Albumin 4.5
[2025-08-10] MEDS: RIVAROXABAN 10 MG TABLET PO (17:42)
--- NOTE | 2025-08-10 18:01 | P.PNIM_ITS ---
Progress Note: A&P Assessment and Plan (1) Hypertension: Code(s): I10 - Essential (primary) hypertension Status: Acute (2) Ileus: Code(s): K56.7 - Ileus, unspecified Status: Acute (3) Leukocytosis: Code(s): D72.829 - Elevated white blood cell count, unspecified Status: Acute (4) Sepsis: Code(s): A41.9 - Sepsis, unspecified organism Status: Acute (5) Right foot ulcer: Code(s): L97.519 - Non-pressure chronic ulcer of other part of right foot with unspecified severity Status: Acute (6) Decubitus ulcer, infected: Code(s): L89.90 - Pressure ulcer of unspecified site, unspecified stage; L08.9 - Local infection of the skin and subcutaneous tissue, unspecified Status: Acute (7) Altered mental status: Code(s): R41.82 - Altered mental status, unspecified Status: Acute (8) COPD (chronic obstructive pulmonary disease): Code(s): J44.9 - Chronic obstructive pulmonary disease, unspecified Status: Chronic (9) Acute respiratory distress: Code(s): R06.03 - Acute respiratory distress Status: Acute Plan no overnight events. Reports no known new complaints. Remains on oxygen. Denies any shortness of breath. No chest pain. No abdominal pain or nausea vomiting, patient with stage IV sacral pressure ulcer s/p debridement general surgery on 07/27/25 POD #14 seen by ID wound is healing, and there is no concern for OM, ID has switched patient to oral antibiotics, patient is clinically stable, he is bed bound and need and he needs help with his ADL, he will benefit going to rehab, patient daughter is his caregiver and would like take him home once clinically stable. 69-year-old bed-[facility] patient presents with altered mental status, He has a decubitus ulcer to the sacrum and left heel, right lateral foot with some purulence.General Surgery was consulted.s/p Sharp excisional debridement stage IV sacral decubitus ulcer including skin, subcutaneous fat, muscle, and fascia/tendon measuring 15 cm x 8 cm. # Sepsis: Likely secondary to a UTI or decubitus ulcer to sacrum Chest x-ray was clear Influenza, asthma, COVID were negative He was initially started on cefepime vancomycin and metronidazole. Currently he is on Zyvox, Levaquin, Flagyl Still has leukocytosis, fluctuating Appreciate ID help Local wound care as per surgery recommendation Blood pressure remains soft Continue with midodrine Fluconazole has been stopped as urine culture was growing Nehal as per ID recommendation Patient has chronic indwelling catheter # Acute respiratory distress: Continues to be on 4 L of O2 support ? Unclear etiology Blood pressure remains soft, will not tolerate Lasix Already on Xarelto, unlikely to be PE CTA which shows mild pulmonary edema and no PE Elevated BNP Echo EF 60-65% grade 1 diastolic dysfunction trace tricuspid regurgitation Will gently diurese with Lasix as tolerated add albumin for blood pressure Repeat chest x-ray mild interstitial opacities few Fahad B lines at the bilateral lower lungs consistent with mild pulmonary edema. Band like opacities at bilateral lower lung zones favor atelectasis versus pneumonia. # Altered mental status: Head CT showing age-related changes including mild-moderate diffuse volume loss and moderate scattered white matter hypoattenuation consistent with chronic small-vessel ischemic disease but no acute findings. Ammonia level negative. TSH normal. UDS negative. B12 level low at 231. Folate normal. Vit D <12.8. Likely has metabolic encephalopathy due to UTI, sacral infection, B12 and VitD deficiency Symptoms improving. Fall precautions. c/w B12 and VitD # Ileus: Ileus -CT scan showed probable ileus related to sepsis. Serial exams and Abdominal x-rays showing ileus has resolved. Constipation Continue with lactulose Added MiraLax and Senokot CT abdomen pelvis with inflammatory stranding surrounding the rectum where there is 6.6 cm ball of stool suggestive of stercoral colitis. Will give suppository # Multiple sclerosis: Patient on interferon prior to admission. Mental status improving. Neurology following Resume Interferon when infection better controlled. Monitor mental status. # COPD (chronic obstructive pulmonary disease): No wheezing appreciated but he remains on oxygen. Continue Trelegy. Albuterol p.r.n.. Echo and CTA as reviewed above # Code status: Full # DVT prophylaxis: Xarelto # Disposition: Pending improvement Subjective Date/time seen: 08/10/25 18:01 Interval history: no overnight events. Reports no known new complaints. Remains on oxygen. Denies any shortness of breath. No chest pain. No abdominal pain or nausea vomiting, patient with stage IV sacral pressure ulcer s/p debridement general surgery on 07/27/25 POD #14 seen by ID wound is healing, and there is no concern for OM, ID has switched patient to oral antibiotics, patient is clinically stable, he is bed bound and need and he needs help with his ADL, he will benefit going to rehab, patient daughter is his caregiver and would like take him home once clinically stable. Review of Systems Review of Systems: All systems reviewed & are unremarkable except as noted in HPI and below Exam Narrative: Gen - No acute distress Chest -B/L decreased breath sounds B/L CV - normal sinus rhythm Abd -soft, non tender, BS+ Ext - 1+ pedal edema. Neuro - alert Psych - depressed mood Skin - Warm and dry. Right lateral foot, bilateral heel, and right hip and sacral area dressings are clean, dry and intact. Objective Data Vital Signs Vital Signs: Vital Signs - 24 hr 08/09/25 20:00 08/09/25 21:15 08/10/25 06:00 Temperature 37.0 C 36.4 C Pulse Rate 88 89 Respiratory Rate 20 20 Blood Pressure 126/76 119/73 Pulse Oximetry 93 93 94 Oxygen Delivery Oxygen Flow Rate 5 08/10/25 08:00 08/10/25 08:32 08/10/25 08:32 Temperature Pulse Rate 82 82 Respiratory Rate 20 20 Blood Pressure Pulse Oximetry 95 95 Oxygen Delivery Nasal Cannula Nasal Cannula Oxygen Flow Rate 3 5 08/10/25 13:55 Temperature 37.1 C Pulse Rate 89 Respiratory Rate 18 Blood Pressure 134/74 Pulse Oximetry 93 Oxygen Delivery Oxygen Flow Rate Intake/Output Intake/Output: Intake & Output 08/07/25 08/08/25 08/09/25 08/10/25 23:59 23:59 23:59 23:59 Intake Total 1090 1080 1170 730 Output Total 812 177 2573 400 Balance 590 580 70 330 Meds/Results Medications: Active Medications Generic Name Dose Route Start Last Admin Trade Name Freq PRN Reason Stop Dose Admin Acetaminophen 650 mg 08/02/25 16:13 08/07/25 09:22 Acetaminophen 325 Mg Tablet PO 650 mg Q6H PRN Administration Mild Pain (1-3) or Fever Albuterol/Ipratropium 3 ml 07/27/25 17:46 07/27/25 18:34 Ipratropium 0.5 Mg/Albuterol Sulfate 2.5 Mg Ampul.Neb 3 Ml INHALATION 3 ml Q6HRT PRN Administration Shortness Of Breath Ascorbic Acid 500 mg 07/29/25 09:00 08/10/25 10:22 Ascorbic Acid 500 Mg Tablet PO 500 mg DAILY MICAH Administration Bisacodyl 10 mg 08/10/25 09:00 Bisacodyl 10 Mg Suppository RECTAL QAM PRN Constipation Cyanocobalamin 1,000 mcg 07/29/25 09:00 08/10/25 10:22 Cyanocobalamin 1,000 Mcg Tablet PO 1,000 mcg QAM MICAH Administration Dextrose 12.5 gm 07/26/25 22:31 Dextrose 50% 25 Gm/50 Ml Syringe IV PUSH PRN PRN Hypoglycemia Protocol Diphenhydramine HCl 25 mg 07/27/25 17:10 Diphenhydramine Hcl Inj 50 Mg/Ml Vial IV PUSH Q6H PRN Itching Fluticasone/Umeclidinium/Vilanterol 1 puff 07/27/25 08:00 08/10/25 08:32 Fluticasone/Umeclidin/Vilanter 100-62.5-25 Mcg Ellipta INHALATION 1 puff DAILYRT MICAH Administration Furosemide 20 mg 08/09/25 17:00 08/10/25 17:42 Furosemide Inj 40 Mg/4 Ml Vial IV PUSH 20 mg BID MICAH Administration Glucose 15 gm 07/26/25 22:31 Glucose Oral Gel 15 Gm Of Glucse In 37.5 Gm Tube PO PRN PRN Hypoglycemia Protocol Dextrose 1,000 mls @ 100 mls/hr 07/26/25 22:31 Dextrose 5% 1,000 Ml IVPB PRN PRN Hypoglycemia Protocol Lactulose 20 gm 08/01/25 17:00 08/10/25 17:45 Lactulose 20 Gm/30 Ml Udc PO 20 gm BID MICAH Administration Levofloxacin 750 mg 08/04/25 09:00 08/10/25 10:22 Levofloxacin 750 Mg Tablet PO 08/15/25 09:01 750 mg DAILY MICAH Administration Linezolid 600 mg 08/09/25 17:00 08/10/25 17:42 Linezolid 600 Mg Tablet PO 08/15/25 17:01 600 mg BID MICAH Administration Midodrine 10 mg 08/03/25 13:00 08/10/25 17:42 Midodrine Hcl 2.5 Mg Tablet PO 10 mg TID MICAH Administration Montelukast Sodium 10 mg 07/28/25 21:00 08/09/25 21:37 Montelukast Sodium 10 Mg Tablet PO 10 mg HS MICAH Administration Multi-Ingred Cream/Lotion/Oil/Oint 1 applic 07/31/25 17:45 08/10/25 13:03 Eucerin Cream 120 Gm Jar TOPICAL 1 applic DAILY MICAH Administration Naloxone HCl 0.1 mg 07/27/25 17:10 Naloxone Hcl 0.4 Mg/Ml Vial IV PUSH Q2M PRN Opiate Reversal Ondansetron HCl 4 mg 07/27/25 17:10 08/08/25 00:19 Ondansetron Inj 4 Mg/2 Ml Vial IV PUSH 4 mg Q4H PRN Administration Nausea And Vomiting Polyethylene Glycol 17 gm 08/05/25 14:05 08/10/25 10:23 Polyethylene Glycol 3350 17 Gm Powd.Pack PO 17 gm QAM MICAH Administration Rivaroxaban 10 mg 08/08/25 17:00 08/10/25 17:42 Rivaroxaban 10 Mg Tablet PO 10 mg DAILY@1700 MICAH Administration Senna/Docusate Sodium 1 tab 08/05/25 21:00 08/09/25 21:36 Senna/Docusate Sodium Tablet PO 1 tab HS MICAH Administration Vitamin D 25 mcg 07/29/25 09:00 08/10/25 10:22 Cholecalciferol (Vitamin D3) 25 Mcg (1,000 Units) Tablet PO 25 mcg DAILY MICAH Administration Radiology Results: ITS Impressions Head CT 07/27/25 08:07 IMPRESSION: 1. Age-related changes including mild to moderate diffuse volume loss and moderate scattered white matter hypoattenuation consistent with chronic small vessel ischemic disease. No acute intracranial process. Chest CTA 08/05/25 08:03 IMPRESSION: 1. No pulmonary embolus. 2. Mild pulmonary edema. 3. Small pleural effusions. 4. Mild emphysema. Abdomen X-Ray 08/08/25 15:57 IMPRESSION: 1. Mildly dilated air-filled loops of small bowel in the left abdomen. Differential includes ileus or developing small bowel obstruction. Consider a CT of the abdomen and pelvis for further assessment. 2.Hardware is noted in the fracture of the proximal right femur. Correlate clinically. 3.Patchy opacities in the visualized left lower lung. Possible small left-sided pleural effusion. Chest X-Ray 08/09/25 10:38 IMPRESSION: 1. Mild increased interstitial opacities and a few curly B-lines at the bilateral lower lungs consistent with mild pulmonary edema. 2. Predominantly linear and bandlike opacities at the bilateral lower lung zones and favor atelectasis over pneumonia. 3. Small left pleural effusion. 4. Mild emphysema. Abdomen/Pelvis CT 08/09/25 13:20 IMPRESSION: 1. Emphysema with small bilateral pleural effusions and dependent compressive atelectasis in the bilateral lower lobes. 2. Inflammatory stranding surrounding the rectum where there is a 6.6 cm ball of stool suggestive of stercoral colitis. 3. Bladder wall thickening with some additional stranding in the surrounding fat suspicious for cystitis. Correlate with urinalysis. 4. Small sliding-type hiatal hernia. Labs Labs: Laboratory Results - last 24 hr 08/10/25 05:55 WBC 14.4 H RBC 3.46 L Hgb 10.1 L Hct 32.5 L MCV 93.9 MCH 29.2 MCHC 31.1 L RDW 15.8 H Plt Count 301 MPV 9.5 Immature Gran % (Auto) 0.8 H Neut % (Auto) 66.0 Lymph % (Auto) 19.5 [place] % (Auto) 8.0 Eos % (Auto) 5.2 H Baso % (Auto) 0.5 Lymph # (Auto) 2.82 [place] # (Auto) 1.2 H Eos # (Auto) 0.8 H Baso # (Auto) 0.1 Abs Immat Gran (auto) 0.11 H Absolute Neuts (auto) 9.5 H Absolute Nucleated RBC 0.000 Nucleated RBC % 0.0 Sodium 140 Potassium 3.1 L Chloride 101 Carbon Dioxide 30 Anion Gap 9 BUN 9 Creatinine 0.48 L Estim Creat Clear Calc 126 Estimated GFR > 60 Glucose 117 H Calcium 9.1 Magnesium 2.0 Total Bilirubin 1.0 AST 26 ALT 17 Alkaline Phosphatase 89 Total Protein 6.4 Albumin 4.5 Quality VTE Prophylaxis VTE prophylaxis: pharmacologic ordered
[2025-08-10 20:00] VITALS: O2SAT 90
[2025-08-10 21:00] VITALS: BP 115/57; PULSE 115; PULSE 99; RESP 18; TEMP 36.6; O2SAT 90
[2025-08-10] MEDS: SENNA/DOCUSATE SODIUM TABLET 1 TAB PO (21:00)
[2025-08-10] MEDS: MONTELUKAST SODIUM 10 MG TABLET PO (21:00)
[2025-08-11 05:00] VITALS: BP 114/64; PULSE 81; RESP 16; TEMP 36.9; O2SAT 91
[2025-08-11 05:46] VITALS: O2SAT 87
[2025-08-11 06:35] LABS: Alanine Aminotransferase 17 U/L (6-50); Albumin Level 4.3 g/dL (3.5-5.1); Alkaline Phosphatase 72 U/L (38-126); Anion Gap 9 mmol/L (4-12); Aspartate Amino Transferase 20 U/L (17-59); Bilirubin,Total 0.9 mg/dL (0.2-1.3); Blood Urea Nitrogen 14 mg/dL (9-20); Calcium 9.3 mg/dL (8.4-10.2); Carbon Dioxide 31 mmol/L (22-30); Chloride 101 mmol/L (98-107); Estimated CRCL calculation 116 ml/min; Estimated Glomerular Filt Rate > 60; Glucose 130 mg/dL (65-110); Magnesium 2.0 mg/dL (1.6-2.3); Potassium 3.0 mmol/L (3.4-5.0); Sodium 141 mmol/L (137-145); Total Protein 6.5 g/dL (6.3-8.2)
[2025-08-11] MEDS: FLUTICASONE/UMECLIDIN/VILANTER 100-62.5-25 MCG ELLIPTA 1 PUFF INHALATION (07:49)
[2025-08-11 07:50] VITALS: PULSE 91; RESP 17; O2SAT 91
[2025-08-11 08:00] VITALS: O2SAT 91
[2025-08-11] MEDS: FUROSEMIDE INJ 40 MG/4 ML VIAL 20 MG IV PUSH (09:54)
[2025-08-11] MEDS: ASCORBIC ACID 500 MG TABLET PO (09:54)
[2025-08-11] MEDS: LINEZOLID 600 MG TABLET PO ×2 (09:54→17:29)
[2025-08-11] MEDS: CYANOCOBALAMIN 1,000 MCG TABLET 1000 MCG PO (09:54)
[2025-08-11] MEDS: MIDODRINE HCL 2.5 MG TABLET 10 MG PO ×3 (09:54→17:29)
[2025-08-11] MEDS: CHOLECALCIFEROL (VITAMIN D3) 25 MCG (1,000 UNITS) TABLET PO (09:54)
[2025-08-11] MEDS: EUCERIN CREAM 120 GM JAR 1 APPLIC TOPICAL (09:55)
[2025-08-11] MEDS: POTASSIUM CHLORIDE 20 MEQ PACKET (FOR LIQUID) 40 MEQ PO (09:55)
[2025-08-11 14:00] VITALS: BP 105/56; PULSE 86; RESP 18; TEMP 36.5; O2SAT 98
--- NOTE | 2025-08-11 14:29 | PM.DS ---
DS: Admitting Diagnosis Discharge Date 08/11/25 Admitting Diagnosis Altered mental status DS: Discharge Diagnosis Discharge Diagnosis (1) Hypertension: Code(s): I10 - Essential (primary) hypertension Status: Acute (2) Ileus: Code(s): K56.7 - Ileus, unspecified Status: Acute (3) Leukocytosis: Code(s): D72.829 - Elevated white blood cell count, unspecified Status: Acute (4) Sepsis: Code(s): A41.9 - Sepsis, unspecified organism Status: Acute (5) Right foot ulcer: Code(s): L97.519 - Non-pressure chronic ulcer of other part of right foot with unspecified severity Status: Acute (6) Decubitus ulcer, infected: Code(s): L89.90 - Pressure ulcer of unspecified site, unspecified stage; L08.9 - Local infection of the skin and subcutaneous tissue, unspecified Status: Acute (7) Altered mental status: Code(s): R41.82 - Altered mental status, unspecified Status: Acute (8) COPD (chronic obstructive pulmonary disease): Code(s): J44.9 - Chronic obstructive pulmonary disease, unspecified Status: Chronic (9) Acute respiratory distress: Code(s): R06.03 - Acute respiratory distress Status: Acute Plan no overnight events. Reports no known new complaints. Remains on oxygen. Denies any shortness of breath. No chest pain. No abdominal pain or nausea vomiting, patient with stage IV sacral pressure ulcer s/p debridement general surgery on 07/27/25 POD #14 seen by ID wound is healing, and there is no concern for OM, ID has switched patient to oral antibiotics, patient is clinically stable, he is bed bound and need and he needs help with his ADL, he will benefit going to rehab, patient daughter is his caregiver and would like take him home once clinically stable. 69-year-old bed-bound [facility] [facility] patient presents with altered mental status, He has a decubitus ulcer to the sacrum and left heel, right lateral foot with some purulence.General Surgery was consulted.s/p Sharp excisional debridement stage IV sacral decubitus ulcer including skin, subcutaneous fat, muscle, and fascia/tendon measuring 15 cm x 8 cm. # Sepsis: Likely secondary to a UTI or decubitus ulcer to sacrum Chest x-ray was clear Influenza, asthma, COVID were negative He was initially started on cefepime vancomycin and metronidazole. Currently he is on Zyvox, Levaquin, Flagyl Still has leukocytosis, fluctuating Appreciate ID help Local wound care as per surgery recommendation Blood pressure remains soft Continue with midodrine Fluconazole has been stopped as urine culture was growing Nehal as per ID recommendation Patient has chronic indwelling catheter # Acute respiratory distress: Continues to be on 4 L of O2 support ? Unclear etiology Blood pressure remains soft, will not tolerate Lasix Already on Xarelto, unlikely to be PE CTA which shows mild pulmonary edema and no PE Elevated BNP Echo EF 60-65% grade 1 diastolic dysfunction trace tricuspid regurgitation Will gently diurese with Lasix as tolerated add albumin for blood pressure Repeat chest x-ray mild interstitial opacities few Fahad B lines at the bilateral lower lungs consistent with mild pulmonary edema. Band like opacities at bilateral lower lung zones favor atelectasis versus pneumonia. # Altered mental status: Head CT showing age-related changes including mild-moderate diffuse volume loss and moderate scattered white matter hypoattenuation consistent with chronic small-vessel ischemic disease but no acute findings. Ammonia level negative. TSH normal. UDS negative. B12 level low at 231. Folate normal. Vit D <12.8. Likely has metabolic encephalopathy due to UTI, sacral infection, B12 and VitD deficiency Symptoms improving. Fall precautions. c/w B12 and VitD # Ileus: Ileus -CT scan showed probable ileus related to sepsis. Serial exams and Abdominal x-rays showing ileus has resolved. Constipation Continue with lactulose Added MiraLax and Senokot CT abdomen pelvis with inflammatory stranding surrounding the rectum where there is 6.6 cm ball of stool suggestive of stercoral colitis. Will give suppository # Multiple sclerosis: Patient on interferon prior to admission. Mental status improving. Neurology following Resume Interferon when infection better controlled. Monitor mental status. # COPD (chronic obstructive pulmonary disease): No wheezing appreciated but he remains on oxygen. Continue Trelegy. Albuterol p.r.n.. Echo and CTA as reviewed above # Code status: Full # DVT prophylaxis: Xarelto # Disposition: Pending improvement DS: Summary Hospital Course Hospital Course: 69-year-old bed-bound [facility] [facility] patient presents with altered mental status, He has a decubitus ulcer to the sacrum and left heel, right lateral foot with some purulence.General Surgery was consulted.s/p Sharp excisional debridement stage IV sacral decubitus ulcer including skin, subcutaneous fat, muscle, and fascia/tendon measuring 15 cm x 8 cm. patient with stage IV sacral pressure ulcer s/p debridement general surgery on 07/27/25 POD #15 seen by ID wound is healing, and there is no concern for OM, ID has switched patient to oral antibiotics, patient is clinically stable, he is bed bound and he needs help with his ADL, he will benefit going to rehab, patient daughter is his caregiver and would like take him home once clinically stable. However patient is agreeable to go to rehab, he will benefit going to the rehad and will discharge with his remaing oral antibiotics. Time Spent with Patient Time attestation: Total time spent providing and/or coordinating discharge services: Exam Narrative: Gen - No acute distress Chest -B/L decreased breath sounds B/L CV - normal sinus rhythm Abd -soft, non tender, BS+ Ext - 1+ pedal edema. Neuro - alert Psych - depressed mood Skin - Warm and dry. Right lateral foot, bilateral heel, and right hip and sacral area dressings are clean, dry and intact. DS: Data Data Completed and Pending Labs on day of discharge: Labs from last 24 hours 08/11/25 05:37 Sodium 141 Potassium 3.0 L Chloride 101 Carbon Dioxide 31 H Anion Gap 9 BUN 14 D Creatinine 0.53 L Estim Creat Clear Calc 116 Estimated GFR > 60 Glucose 130 H Calcium 9.3 Magnesium 2.0 Total Bilirubin 0.9 AST 20 ALT 17 Alkaline Phosphatase 72 Total Protein 6.5 Albumin 4.3 Discharge Plan Discharge Attending physician on discharge: Arcadio Chatman Consulting providers: Haile Richardson; Maximiliano Mir; Hailee Galloway; Dulce Maria Faust; Patsy Mao; Gino Morin; Jean Claude Moser; James Mcnamara; Karishma Benitez; Dorys Toro; Addy Grimes; Debbie Benz; Navid Dahl; Abel Sesay; Matt Rodarte; Tariq Rivero; Alex Kapadia; Dong Nciolas; Willi Smith V.; Cal Denny Discharging Clinician: Haylee Perez Anticipated Discharge Date/Time: 08/11/25 20:15 Patient Disposition: SNF Activity: as tolerated Diet: heart healthy Wound Care Instructions: follow printed instructions and change dressing daily Discharge Instructions: Daily apply silver gel to sacral ulcer and right lateral foot. Cover with dry gauze and ABD pads. Wrap foot with kerlex. patient to follow wound care discharge instruction from wound team, patient to follow up with his primary care provider as soon as possible. Patient Instructions: How to Stop Smoking (ED) Patient Language: British Stand Alone Forms: General Discharge Information Follow-up/Referrals: Gino Morin MD [Primary Care Provider, Neurology] Discharge Medications: New cyanocobalamin (vitamin B-12) [Vitamin B-12] 1,000 mcg Tablet 1,000 mcg PO QAM Qty: 30 0RF sennosides-docusate sodium [Senokot-S] 8.6-50 mg Tablet 1 tab-cap PO HS Qty: 30 0RF dextrose [Glutose-15] 40 % Gel 15 g PO PRN PRN (Reason: Hypoglycemia) Qty: 112.5 0RF lactulose 10 gram/15 mL Solution 20 g PO BID Qty: 500 0RF levofloxacin 750 mg tablet 750 mg PO DAILY Qty: 4 0RF bisacodyl 10 mg Suppository 10 mg RECTAL QAM PRN (Reason: Constipation) Qty: 12 0RF cholecalciferol (vitamin D3) 25 mcg (1,000 unit) Tablet 25 mcg PO DAILY Qty: 30 0RF polyethylene glycol 3350 [Miralax] 17 gram Powder In Packet 17 g PO QAM Qty: 14 0RF midodrine 2.5 mg Tablet 10 mg PO TID Qty: 90 0RF naloxone 0.4 mg/mL syringe 0.4 mg subcut Q2-3M PRN (Reason: opioid reversal) Qty: 10 0RF Rx Instructions: NTExceed 10 mg total dose/episode linezolid 600 mg Tablet 600 mg PO BID 6 Days Qty: 12 0RF levofloxacin 500 mg tablet 500 mg PO DAILY 6 Days Qty: 6 0RF Continued diphenhydramine HCl [Benadryl Allergy] 25 mg tablet 25 mg PO QHS PRN (Reason: rash) ipratropium-albuterol 0.5 mg-3 mg(2.5 mg base)/3 mL solution for nebulization 3 ml INHALATION Q6H PRN (Reason: copd) oxycodone 5 mg tablet 5 mg PO Q6H PRN (Reason: pain) clobetasol 0.05 % cream 1 applic TOPICAL BID Xarelto 10 mg tablet 10 mg PO DAILY montelukast [Singulair] 10 mg tablet 10 mg PO HS geriatric multivitamin-min Capsule 1 cap PO DAILY ascorbic acid (vitamin C) 500 mg capsule, extended release 500 mg PO DAILY Santyl 250 unit/gram ointment 1 applic topical DAILY Rx Instructions: Apply to right lateral foot topically daily for wound. Apply to sacrum, coccyx topically every day shift for wounds. Cleanse sacrum and coccyx with wound cleanser or NS, apply santyl to wound bed cover with dakins moistened fluffed gauze, cover with sacral border foam dressing. Breztri Aerosphere 160-9-4.8 mcg/actuation HFA aerosol inhaler 2 inh inhalation BID Qty: 10.7 3RF Rebif (with albumin) 44 mcg/0.5 mL syringe See Rx Instructions subcut 3XW Qty: 12 5RF Dose Instruction: INJECT 44MCG (0.5ML) UNDER THE SKIN 3 TIMES PER WEEK Rx Instructions: INJECT 44MCG (0.5ML) UNDER THE SKIN 3 TIMES PER WEEK subcutaneously 3 times a week; Date of admission: 07/26/25 18:41 Primary Care Provider: Gino Morin Admitting Provider: Arcadio Chatman Attending physician on admission: Haylee Perez Condition: Stable
--- NOTE | 2025-08-11 14:34 | WPDINFPN2 ---
Progress Note: A&P Assessment and Plan (1) Decubitus ulcer, infected: Code(s): L89.90 - Pressure ulcer of unspecified site, unspecified stage; L08.9 - Local infection of the skin and subcutaneous tissue, unspecified Status: Acute (2) Leukocytosis: Code(s): D72.829 - Elevated white blood cell count, unspecified Status: Acute (3) Right foot ulcer: Code(s): L97.519 - Non-pressure chronic ulcer of other part of right foot with unspecified severity Status: Acute (4) Multiple sclerosis: Code(s): G35 - Multiple sclerosis Status: Chronic Plan It Assessment and Plan Assessment and plan (1) Decubitus ulcer, infected: Code(s): L89.90 - Pressure ulcer of unspecified site, unspecified stage; L08.9 - Local infection of the skin and subcutaneous tissue, unspecified Status: Acute Assessment and Plan: Patient with stage 4 sacral pressure ulcer s/p debridement. No obvious evidence of osteomyelitis presently . Post debridement wound with healthy beefy red tissue. -- with some nausea/ vomiting while on antibiotic therapy. Monitor for possible ileus on KUB 08/08/2025. (2) Right foot ulcer: Code(s): L97.519 - Non-pressure chronic ulcer of other part of right foot with unspecified severity Status: Acute Assessment and Plan: Management as per primary service (3) UTI (urinary tract infection): Code(s): N39.0 - Urinary tract infection, site not specified Status: Acute Assessment and Plan: Patient without symptoms of UTI Candiduria not likely to be pathogenic presently (4) Multiple sclerosis: Code(s): G35 - Multiple sclerosis Status: Chronic Assessment and Plan: Management as per primary service Plan -- OK for discharge on oral levaquin and zyvox from ID standpoint Continue through 08/17/25 -Wound care /offloading per wound care team Patient was seen via video telehealth consultation with the assistance of staff. Chart, data, and patient independently reviewed. Patient was located at [facility] while I was located in my [place] office. Received verbal consent from patient. Subjective Date/time seen: 08/11/25 14:34 Interval history: looks better today. no fever. no nausea. Exam Narrative: awake. no distress. more interactive over past 48 hours. good spirits Nondistended Objective Data Vital Signs Vital Signs: Vital Signs - 24 hr 08/10/25 20:00 08/10/25 21:00 08/10/25 21:00 Temperature 36.6 C Pulse Rate 115 H 99 Respiratory Rate 18 Blood Pressure 115/57 L Pulse Oximetry 90 90 90 Oxygen Delivery Nasal Cannula Nasal Cannula Oxygen Flow Rate 3 3 Fraction of Inspired Oxygen 08/11/25 05:00 08/11/25 05:46 08/11/25 07:50 Temperature 36.9 C Pulse Rate 81 91 Respiratory Rate 16 17 Blood Pressure 114/64 Pulse Oximetry 91 87 L 91 Oxygen Delivery Nasal Cannula Nasal Cannula Oxygen Flow Rate 4.5 4 Fraction of Inspired Oxygen 08/11/25 07:50 08/11/25 08:00 Temperature Pulse Rate 91 Respiratory Rate 17 Blood Pressure Pulse Oximetry 91 Oxygen Delivery Nasal Cannula Oxygen Flow Rate 4.5 Fraction of Inspired Oxygen 36 Intake/Output Intake/Output: Intake & Output 08/08/25 08/09/25 08/10/25 08/11/25 23:59 23:59 23:59 23:59 Intake Total 1080 1170 730 350 Output Total 500 6047 801 9439 Balance 580 70 330 -900 Meds/Results Medications: Active Medications Generic Name Dose Route Start Last Admin Trade Name Freq PRN Reason Stop Dose Admin Acetaminophen 650 mg 08/02/25 16:13 08/07/25 09:22 Acetaminophen 325 Mg Tablet PO 650 mg Q6H PRN Administration Mild Pain (1-3) or Fever Albuterol/Ipratropium 3 ml 07/27/25 17:46 07/27/25 18:34 Ipratropium 0.5 Mg/Albuterol Sulfate 2.5 Mg Ampul.Neb 3 Ml INHALATION 3 ml Q6HRT PRN Administration Shortness Of Breath Ascorbic Acid 500 mg 07/29/25 09:00 08/11/25 09:54 Ascorbic Acid 500 Mg Tablet PO 500 mg DAILY MICAH Administration Bisacodyl 10 mg 08/10/25 09:00 Bisacodyl 10 Mg Suppository RECTAL QAM PRN Constipation Cyanocobalamin 1,000 mcg 07/29/25 09:00 08/11/25 09:54 Cyanocobalamin 1,000 Mcg Tablet PO 1,000 mcg QAM MICAH Administration Dextrose 12.5 gm 07/26/25 22:31 Dextrose 50% 25 Gm/50 Ml Syringe IV PUSH PRN PRN Hypoglycemia Protocol Diphenhydramine HCl 25 mg 07/27/25 17:10 Diphenhydramine Hcl Inj 50 Mg/Ml Vial IV PUSH Q6H PRN Itching Fluticasone/Umeclidinium/Vilanterol 1 puff 07/27/25 08:00 08/11/25 07:49 Fluticasone/Umeclidin/Vilanter 100-62.5-25 Mcg Ellipta INHALATION 1 puff DAILYRT MICAH Administration Furosemide 20 mg 08/09/25 17:00 08/11/25 09:54 Furosemide Inj 40 Mg/4 Ml Vial IV PUSH 20 mg BID MICAH Administration Glucose 15 gm 07/26/25 22:31 Glucose Oral Gel 15 Gm Of Glucse In 37.5 Gm Tube PO PRN PRN Hypoglycemia Protocol Dextrose 1,000 mls @ 100 mls/hr 07/26/25 22:31 Dextrose 5% 1,000 Ml IVPB PRN PRN Hypoglycemia Protocol Lactulose 20 gm 08/01/25 17:00 08/11/25 09:50 Lactulose 20 Gm/30 Ml Udc PO Not Given BID MICAH Levofloxacin 750 mg 08/04/25 09:00 08/11/25 09:54 Levofloxacin 750 Mg Tablet PO 08/15/25 09:01 750 mg DAILY MICAH Administration Linezolid 600 mg 08/09/25 17:00 08/11/25 09:54 Linezolid 600 Mg Tablet PO 08/15/25 17:01 600 mg BID MICAH Administration Midodrine 10 mg 08/03/25 13:00 08/11/25 12:57 Midodrine Hcl 2.5 Mg Tablet PO 10 mg TID MICAH Administration Montelukast Sodium 10 mg 07/28/25 21:00 08/10/25 21:00 Montelukast Sodium 10 Mg Tablet PO 10 mg HS MICAH Administration Multi-Ingred Cream/Lotion/Oil/Oint 1 applic 07/31/25 17:45 08/11/25 09:55 Eucerin Cream 120 Gm Jar TOPICAL 1 applic DAILY MICAH Administration Naloxone HCl 0.1 mg 07/27/25 17:10 Naloxone Hcl 0.4 Mg/Ml Vial IV PUSH Q2M PRN Opiate Reversal Ondansetron HCl 4 mg 07/27/25 17:10 10/06/25 00:19 Ondansetron Inj 4 Mg/2 Ml Vial IV PUSH 4 mg Q4H PRN Administration Nausea And Vomiting Polyethylene Glycol 17 gm 08/05/25 14:05 08/11/25 09:50 Polyethylene Glycol 3350 17 Gm Powd.Pack PO Not Given QAM [facility] Rivaroxaban 10 mg 08/08/25 17:00 08/10/25 17:42 Rivaroxaban 10 Mg Tablet PO 10 mg DAILY@1700 IMCAH Administration Senna/Docusate Sodium 1 tab 08/05/25 21:00 08/10/25 21:00 Senna/Docusate Sodium Tablet PO 1 tab HS MICAH Administration Vitamin D 25 mcg 07/29/25 09:00 08/11/25 09:54 Cholecalciferol (Vitamin D3) 25 Mcg (1,000 Units) Tablet PO 25 mcg DAILY MICAH Administration Radiology Results: ITS Impressions Head CT 07/27/25 08:07 IMPRESSION: 1. Age-related changes including mild to moderate diffuse volume loss and moderate scattered white matter hypoattenuation consistent with chronic small vessel ischemic disease. No acute intracranial process. Chest CTA 08/05/25 08:03 IMPRESSION: 1. No pulmonary embolus. 2. Mild pulmonary edema. 3. Small pleural effusions. 4. Mild emphysema. Abdomen X-Ray 08/08/25 15:57 IMPRESSION: 1. Mildly dilated air-filled loops of small bowel in the left abdomen. Differential includes ileus or developing small bowel obstruction. Consider a CT of the abdomen and pelvis for further assessment. 2.Hardware is noted in the fracture of the proximal right femur. Correlate clinically. 3.Patchy opacities in the visualized left lower lung. Possible small left-sided pleural effusion. Chest X-Ray 08/09/25 10:38 IMPRESSION: 1. Mild increased interstitial opacities and a few curly B-lines at the bilateral lower lungs consistent with mild pulmonary edema. 2. Predominantly linear and bandlike opacities at the bilateral lower lung zones and favor atelectasis over pneumonia. 3. Small left pleural effusion. 4. Mild emphysema. Abdomen/Pelvis CT 08/09/25 13:20 IMPRESSION: 1. Emphysema with small bilateral pleural effusions and dependent compressive atelectasis in the bilateral lower lobes. 2. Inflammatory stranding surrounding the rectum where there is a 6.6 cm ball of stool suggestive of stercoral colitis. 3. Bladder wall thickening with some additional stranding in the surrounding fat suspicious for cystitis. Correlate with urinalysis. 4. Small sliding-type hiatal hernia. Labs Labs: Laboratory Results - last 24 hr 08/11/25 05:37 Sodium 141 Potassium 3.0 L Chloride 101 Carbon Dioxide 31 H Anion Gap 9 BUN 14 D Creatinine 0.53 L Estim Creat Clear Calc 116 Estimated GFR > 60 Glucose 130 H Calcium 9.3 Magnesium 2.0 Total Bilirubin 0.9 AST 20 ALT 17 Alkaline Phosphatase 72 Total Protein 6.5 Albumin 4.3
[2025-08-11] MEDS: RIVAROXABAN 10 MG TABLET PO (17:29)
== END 2025-08-11 20:15 | DRG 853 ==
LOC: ANHED 18:49 → ANHIMU 23:37 → ANH3MEDSUR 07-28 22:03
PROVIDERS: General Practice; Internal Medicine; Surgery; Admitting Provider Internal Medicine; Emergency Provider Emergency Medicine; PCP Psychiatry & Neurology Neurology; Visit Provider Family Medicine
DX: A41.9 Sepsis, unspecified organism (principal); G93.41 Metabolic encephalopathy; L89.154 Pressure ulcer of sacral region, stage 4; K56.7 Ileus, unspecified; L89.622 Pressure ulcer of left heel, stage 2; L89.222 Pressure ulcer of left hip, stage 2; L89.892 Pressure ulcer of other site, stage 2; L97.519 Non-pressure chronic ulcer of other part of right foot with unspecified severity; L08.9 Local infection of the skin and subcutaneous tissue, unspecified; J44.9 Chronic obstructive pulmonary disease, unspecified; E53.8 Deficiency of other specified B group vitamins; E55.9 Vitamin D deficiency, unspecified; G35.D Multiple sclerosis, unspecified; R06.03 Acute respiratory distress; F17.210 Nicotine dependence, cigarettes, uncomplicated; Z20.822 Contact with and (suspected) exposure to COVID-19; Z74.01 Bed confinement status
CPT/HCPCS: 36415; 70450; 71045; 71275; 74018; 74019; 74177; 80048; 80053; 80069; 80143; 80179; 80202; 80307; 81001; 82140; 82306; 82565; 82607; 82746; 82803; 82948; 83605; 83735; 83880; 84100; 84443; 85025; 85027; 87040; 87070; 87086; 87205; 87637; 87641; 93005; 93306; 94640; 96361; 96365; 96366; 96367; 97110; 97163; 97166; 97530; 97535; 99285; A9270; J0692; J1100; J1650; J1836; J1938; J1956; J2371; J2405; J2704; J3010; J3373; J3420; J7030; J7042; J7120; P9047; Q9967

== ENCOUNTER 2025-09-03 08:30 | Emergency (ER) | payer MEDICARE, SELFPAY ==
[2025-09-03] VITALS (16 sets, daily range): BP systolic 102–116; BP diastolic 64–79; PULSE 78–94; RESP 13–20; TEMP 36.5; O2SAT 87–100
--- NOTE | ~2025-09-03 | CT_ITS ---
CT PELVIS WITH CONTRAST Clinical History: sacral ulcer evaluation Comparison: CT abdomen pelvis 08/09/2025 Technique: Images through pelvis IV contrast information not listed in PACS Coronal, sagittal reformats CT images acquired with automatic exposure control for dose reduction DLP: 204 mGy-cm Findings: Large sacral decubitus wound. No convincing evidence of sacral osteomyelitis. No associated soft tissue emphysema or abscess. 1 small portion of left sacral posterior element may abut air. Visualized lower abdominal and pelvic contents without acute abnormality. Mondragon catheter in place with mildly distended urinary bladder with small gas locules likely from catheter manipulation IMPRESSION: 1. Large sacral decubitus wound. 2. No convincing evidence of sacral osteomyelitis. 3. No associated soft tissue emphysema or abscess. Reviewed, dictated and finalized at location R.
--- OUTSIDE RECORDS SUMMARY | 2025-09-03 09:02 | XMS_ITS | Data Portability ---
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 He is approximately 2 weeks postop. He reports doing a little better, and currently rates his pain as 5/10. He takes naproxen as needed. He is on Xarelto for dvt prophylaxis by hospitalist. He is on oxygen and wheelchair bound. [employer] DEVELOPER and patient are poor historians. Physical Exam: Patient needs a Merry lift to be transferred out of the wheelchair. He had a diaper on and I was unable to look at the incision. He also has a diffuse rash along the right trunk and left arm. Assessment & Plan: I was unable to remove the patient's rossi as it was difficult to access from the wheelchair and difficult to transfer the patient to the exam table without a Merry lift. We called his living facility and talked to nurse Alondra, who stated there was someone there who could remove the rossi today for us. She also stated he is being treated for the rash. Sent an XR order with the patient and SAP [employer] DEVELOPER to get XR done before the next appointment. Alondra confirmed that it could be done at the facility. PT order was also given to patient and SAP [employer] DEVELOPER. Follow Up: 4 weeks. They will bring XR with them All questions were answered. Patient verbalized understanding of treatment plan [email or web address] Not available 07/19/2025 15:53:10 Plan of Treatment Reminders Order Date Submit Date Provider Last Modified By Organization Details Last Modified Time Details Appointments None recorded. Lab None recorded. Referral physical therapist referral - Please see patient for R hip post op IM hip pinning. Thanks 2024 025 [email or web address] don[facility], [address], [place], [address], 15:21:44 Procedures cerumen removal (PROC) 2023 024 [email or web address] Not available 09:43:39 Surgeries None recorded. Imaging XR, hip + pelvis, unilateral , 2 or 3 view - Please take XR after 08/28/2025 and before 08/31/2025 for follow up apt on 08/31/20252024 025 [email or web address] [address], [place], [address], 15:21:44 Medication Orders None recorded. Patient TargetsNo targets recorded. Patient Instructions Encounter Date Encounter Id Patient Instructions Last Modified By Organization Details Last Modified Time 07/07/2024 [id number] Discussed returning in 3-6 months for ear cleaning Not available 07/07/2024 14:43:06 Reason for Referral Physical Therapist Referral for Pain of hip region R hip post op, IM hip pinning Please see patient for R hip post op IM hip pinning. Thanks Referring Physician: Kristi Chand, Orthopedic Surgery, Encounter Date: 07/18/2025 Results Created Date Observation Date Name Description Value Unit Range Abnormal Flag Note LastModifiedBy Organization Detail LastModifiedTime 07/01/2007/01/2025 XR, femur , 2 or more view No observ ation record ed. [address] [place], [address], 07/01/2025 15:32:32 07/01/2007/01/2025 XR, pelvi s No observ ation record ed. [address] [place], [address], 07/01/2025 15:32:12 07/13/2007/01/2025 XR, hip + pelvi s, unila teral No observ ation record ed. [email or web address] [facility] [address] [facility], [place], [address], 07/14/2025 08:05:39 Result Notes None recorded. Problems Name Problem SNOMED Code Status Onset Date Resolution Date Notes Provider Name and Address Organization Details Recorded Time Impacted cerumen of bilateral ears 36054813233339 08 Active 2023 MAYRA Lauren [address], [address], [place], [address], [facility] [employer] 4 14:42:40 Pain of hip region 02330761 Active 2024 QASIM Cuevas, [facility] [employer] [facility] 5 15:04:27 Problem Notes None recorded. Procedures Surgical History Date Name Laterality Status Provider Name and Address Organization Details Recorded Time nasal septoplasty completed [facility] [employer] [facility] [employer] 07/07/2024 14:18:24 Imaging Results None recorded. Procedure Notes None recorded. Medical Equipment None Reported. Allergies No known drug allergies Medications Name Sig Start Date Stop Date Status Note LastModified by Organization Details LastModified Time montelukast 10 mg tablet Take 1 tablet every day by oral route. active Not Available Not Available No t Available Benadryl active Not Available Not Avai lable Not Available Rebif active Not Available Not Availa ble Not Available Xarelto 10 mg tablet Take 1 tablet every day by oral route. active Not Available Not Available No t Available Breztri Aerosphere 160 mcg-9mcg-4.8m cg/actuation HFA aerosol inhaler INHALE 2 PUFFS INTO THE LUNGS TWICE DAILY active Not Available Not Available No t Available Vitals Date Recorded Body weight Body temperature Provider N rhonda and Address Organization Details Last Updated DateTime 07/07/2024 36759.74 g 98.3 [degF] Judith Richards [facility] [place] [employer] [facility] [employer] 07/07/2024 14:16:05 Date Recorded Body height Body mass index (BMI) Body weight Provider Name and Address Organization Details Last Updated DateTime 07/18/2025 180.34 cm 22.3 kg/m2 14651.78 g QASIM Cuevas [place] [facility] [employer] [facility] 07/18/2025 15:07:02 Social History Question Answer Notes LastModified by Organizat ion Details LastModified Time Tobacco Smoking Status Never Smoker QASIM Cuevas null, [place] [facility] [employer] [facility] 07/18/2025 15:04:12 What Was The Date Of Your Most Recent Tobacco Screening? 07/18/2025 [email or web address] Information not available 07/18/2025 Sex: Unknown Functional Status Question Answer Note LastModified by Organization D etails LastModified Time What is your level of alcohol consumption? None [email or web address] Information not available 07/18/2025 Mental Status None recorded. Family History Relationship Description Onset Age of this Age Resolved Age Notes LastModified by Organization Details LastModified Time Mother Hearing loss [email or web address] Not avail able 07/07/2024 14:16:42 Medical History Condition Response LUNG DISEASE/DISORDER Y Past Encounters Encounter ID Performer Location Encounter Start Date Encounter Closed Date Diagnosis/Indication Diagnosis SNOMED-CT Code Diagnosis ICD10 Code Diagnosis IMO Codes Diagnosis Note [id number] Juan José Morales MD [facility] [place] [address] [place] [address] 07/07/2024 13:54:17 07/07/2024 14:43:50 Impacted cerumen of bilateral ears 1494320954 520716 H61.23 [id number] Jw Parra MD [facility] [place] [address] [place] [address] 07/18/2025 14:41:02 07/18/2025 15:56:17 Pain of hip region 26106429 M25.551 [id number] History of hip fracture 934399178 Z87.81 [id number] Health Concerns Section Related Observation LastModified by Organization Detai ls LastModified Time None Recorded Concern Status LastModified by Organization Details LastModified Time None Recorded Advance Directives Directive None Recorded Payers Insurance Date Sequence Insurance Name Policy Number Policy Baugh Covered Member ID Baugh Member ID Guarantor Name 08/29/2025 1 [facility] (MEDICARE REPLACEMENT/A DVANTAGE - HMO) [id number] Bashir Gruber [id number] Bashir Gruber 08/29/2025 2 [place] Bashir Gruber [id number] Bashir Gruber Notes Date Note Type Note Provider Name and Address Organization Details Recorded Time 07/07/2024 text/html This patient has a past medical history significant for COPD and MS. He presents to the office for bilateral cerumen impaction. Reports inability to hear for approximately 6 months. States that he used to see ENT, Dr. Torres's but this has been close to 20-30 years previously. Leslye Kim, MAYRA [address], [facility] [address], [place], [address], [facility] 07/07/2024 14:43:10
[2025-09-03 09:15] LABS: Hematocrit 38.9 % (42.0-52.0); Hemoglobin 11.9 g/dL (14.0-18.0); Immature Granulocyte Percent A 1.0 % (0-0.5); Lymphocytes Absolute Auto 2.50 K/mm3 (0.9-3.2); Mean Corpuscular HGB Conc 30.6 g/dl (32-36); Mean Corpuscular Hemoglobin 29.4 pg (26-34); Mean Corpuscular Volume 96.0 fl (80-100); Nucleated Red Blood Cells Absolute Auto 0.000 K/mm3 (0.0-0.012); Nucleated Red Blood Cells Perc 0.0 % (0.0-0.2); Platelet Count Result 313 k/mm3 (150-375); Red Blood Count 4.05 M/mm3 (4.6-6.20); White Blood Count 13.2 K/mm3 (4.5-10.0)
[2025-09-03 09:33] LABS: Alanine Aminotransferase 12 U/L (6-50); Albumin Level 3.3 g/dL (3.5-5.1); Alkaline Phosphatase 78 U/L (38-126); Anion Gap 4 mmol/L (4-12); Aspartate Amino Transferase 21 U/L (17-59); Bilirubin,Total 0.5 mg/dL (0.2-1.3); Blood Urea Nitrogen 7 mg/dL (9-20); CRP 2.1 mg/dL (<1.0); Calcium 8.7 mg/dL (8.4-10.2); Carbon Dioxide 34 mmol/L (22-30); Chloride 102 mmol/L (98-107); Estimated CRCL calculation 117 ml/min; Estimated Glomerular Filt Rate > 60; Glucose 112 mg/dL (65-110); Potassium 3.5 mmol/L (3.4-5.0); Sodium 140 mmol/L (137-145); Total Protein 6.3 g/dL (6.3-8.2)
--- NOTE | 2025-09-03 10:04 | ED_ITS ---
HPI - General Adult General Chief complaint: Recheck/Abnormal Lab/Rx Stated complaint: wound infection? Time Seen by Provider: 09/03/25 08:31 History of Present Illness HPI narrative: Patient is a 69-year-old male who presents ER for evaluation of a sacral ulcer that is chronic. He had imaging 2 weeks ago here that did not show osteomyelitis but he did have an x-ray that showed concern for bony erosion in so they sent him in. No fevers or chills. No purulent drainage. Patient has not walked in over urine denies any falls. He does have other additional pressure areas especially to the heels and the hips there being appropriately cared for on initial inspection. Related Data Home Medications ?Medication ?Instructions ?Recorded ?Confirmed ?Last Taken ?Type diphenhydramine HCl 25 mg tablet 25 mg PO QHS PRN rash 08/06/22 07/27/25 Unknown History (Benadryl Allergy) ascorbic acid (vitamin C) 500 mg 500 mg PO DAILY Wound s 07/27/25 07/27/25 07/25/25 History capsule,extended release clobetasol 0.05 % topical cream 1 applic topical BID r toney 07/27/25 07/27/25 07/26/25 History collagenase clostridium histo. 250 1 applic topical DA LETICIA 07/27/25 07/27/25 07/26/25 History unit/gram topical ointment (Santyl) geriatric multivitamin-min 1 cap PO DAILY Wounds 07/2707/27/25 07/25/25 History ipratropium 0.5 mg-albuterol 3 mg 3 ml inhalation Q6H PRN copd 07/27/25 07/27/25 07/26/25 History (2.5 mg base)/3 mL nebulization soln montelukast 10 mg tablet 10 mg PO HS 07/27/25 5 07/25/25 History (Singulair) oxycodone 5 mg tablet 5 mg PO Q6H PRN pain 5 07/27/25 07/26/25 History rivaroxaban 10 mg tablet (Xarelto) 10 mg PO DAILY 07/0507/27/25 07/26/25 History Allergies Allergy/AdvReac Type Severity Reaction Status Date / Time No Known Allergies Allergy Verified 07/27/25 13:01 Review of Systems 2 Review of Systems: All systems reviewed & are unremarkable except as noted in HPI and below Constitutional: Constitutional: Reports no additional constitutional complaints ENT: Reports system reviewed and no additional complaints, except as documented Cardiovascular: Cardiovascular: Reports no additional cardiovascular complaints Musculoskeletal: Musculoskeletal: Reports no additional musculoskeletal complaints Integumentary/Breasts: Skin/Breast: Reports system reviewed and no additional complaints, except as docu PMFSH Past Medical History Medical History (Updated 09/03/25 @ 11:13 by Christiano Escobar MD) Metabolic encephalopathy Tobacco use COPD (chronic obstructive pulmonary disease) Multiple sclerosis BMI 22.0-22.9, adult Abnormal gait Surgical History Surgical History History of hip surgery Right hip pinning June 2024 at [facility] of tonsillectomy Family History Family History Father Liver cancer Mother No problems noted. Sibling No problems noted. Social History Social History Smoking packs per day: 1.5 Smoking cigarettes per day: 30.0 Years smoked: 50 Smoking pack-years: 75.00 Smoking status: Former smoker Second hand tobacco smoke exposure: Yes Alcohol intake: unknown Substance use: unknown Substance use type: unknown Do You Feel Safe in your Home?: Yes Lack of Transportation: No Lack of Food: Never True Current Housing: I Have Housing Concerned About Future Housing: No Difficulty Paying Gas/Electric Bills: No Difficulty Paying for Meds: No Currently Unemployed: No Education: High School Diploma/GED Difficulty w/ Childcare or Family Care: No Living arrangements: alone Occupation/Education: retired Additional occupation/education comments: [employer] Gender identity (if verbalized by the patient): Male Spiritual care concerns: No Exam 2 Narrative: GENERAL: Chronically ill-appearing, well-nourished, and in no acute distress. HEAD: Normocephalic, atraumatic. ENT: Mucous membranes moist. CHEST: Clear to auscultation. No respiratory distress. HEART: Regular rate and rhythm. Normal peripheral pulses. ABDOMEN: Soft, nontender, nondistended. More sacral decubitus ulcer with pink/yellow skin and no necrosis. No purulent discharge noted. EXTREMITIES: No deformity of the extremities, atrophy noted especially extremities. Wears inflatable boots to prevent pressure sores. SKIN: Warm, dry. Plaque and dry heel ulcer left side, left hip ulcer stage II. NEURO: Alert and oriented x3. PSYCH: Normal mood and affect. Course Course Emergency Course: Imaging without osteomyelitis. [facility]. Inflammatory markers mildly elevated, white blood cell count at his baseline. Vital Signs Vital signs: Vital Signs Temperature 97.7 F 09/03/25 08:31 Pulse Rate 82 09/03/25 08:31 Respiratory Rate 14 09/03/25 08:31 Blood Pressure 116/70 09/03/25 08:31 Pulse Oximetry 87 L 09/03/25 08:31 Oxygen Delivery Room Air 09/03/25 08:31 Temperature 97.7 F 09/03/25 08:31 Pulse Rate 78 09/03/25 10:17 Respiratory Rate 15 09/03/25 10:17 Blood Pressure 111/68 09/03/25 10:17 Pulse Oximetry 99 09/03/25 10:17 Oxygen Delivery Room Air 09/03/25 08:31 Medical Decision Making Differential Diagnosis Differential Diagnosis: Cellulitis, osteomyelitis, necrotizing fasciitis, fracture, sepsis Vital Signs Vital Signs: Vital Signs Temperature 97.7 F 09/03/25 08:31 Pulse Rate 82 09/03/25 08:31 Respiratory Rate 14 09/03/25 08:31 Blood Pressure 116/70 09/03/25 08:31 Pulse Oximetry 87 L 09/03/25 08:31 Oxygen Delivery Room Air 09/03/25 08:31 Temperature 97.7 F 09/03/25 08:31 Pulse Rate 78 09/03/25 10:17 Respiratory Rate 15 09/03/25 10:17 Blood Pressure 111/68 09/03/25 10:17 Pulse Oximetry 99 09/03/25 10:17 Oxygen Delivery Room Air 09/03/25 08:31 Lab Data 09/03/25 09:09 09/03/25 09:09 Labs: Lab Results 09/03/25 Range/Units 09:09 WBC 13.2 H (4.5-10.0) K/mm3 RBC 4.05 L (4.6-6.20) M/mm3 Hgb 11.9 L (14.0-18.0) g/dL Hct 38.9 L (42.0-52.0) % MCV 96.0 (80-100) fl MCH 29.4 (26-34) pg MCHC 30.6 L (32-36) g/dl RDW 16.5 H (11.5-14.5) % Plt Count 313 (150-375) k/mm3 MPV 10.1 (7.4-10.4) fl Immature Gran % (Auto) 1.0 H (0-0.5) % Neut % (Auto) 67.1 (45.5-73.1) % Lymph % (Auto) 19.0 (18.3-44.2) % Morrow % (Auto) 10.2 H (2.6-8.5) % Eos % (Auto) 2.3 (0-4.4) % Baso % (Auto) 0.4 (0.2-1.2) % Lymph # (Auto) 2.50 (0.9-3.2) K/mm3 Morrow # (Auto) 1.3 H (0.1-0.6) K/mm3 Eos # (Auto) 0.3 (0-0.3) K/mm3 Baso # (Auto) 0.1 (0.0-0.1) K/mm3 Abs Immat Gran (auto) 0.13 H (0.00-0.031) K/mm3 Absolute Neuts (auto) 8.9 H (1.3-6.7) K/mm3 Absolute Nucleated RBC 0.000 (0.0-0.012) K/mm3 Nucleated RBC % 0.0 (0.0-0.2) % ESR 46 H (0-20) mm/hr Sodium 140 (137-145) mmol/L Potassium 3.5 (3.4-5.0) mmol/L Chloride 102 (98-107) mmol/L Carbon Dioxide 34 H (22-30) mmol/L Anion Gap 4 (4-12) mmol/L BUN 7 L D (9-20) mg/dL Creatinine 0.50 L (0.7-1.3) mg/dL Estim Creat Clear Calc 117 ml/min Estimated GFR > 60 (59 - ) Glucose 112 H (65-110) mg/dL Calcium 8.7 (8.4-10.2) mg/dL Total Bilirubin 0.5 (0.2-1.3) mg/dL AST 21 (17-59) U/L ALT 12 (6-50) U/L Alkaline Phosphatase 78 (38-126) U/L C-Reactive Protein 2.1 H (<1.0) mg/dL Total Protein 6.3 (6.3-8.2) g/dL Albumin 3.3 L (3.5-5.1) g/dL Imaging Data Radiologist's impression: ITS Impressions Pelvis CT 09/03/25 10:36 IMPRESSION: 1. Large sacral decubitus wound. 2. No convincing evidence of sacral osteomyelitis. 3. No associated soft tissue emphysema or abscess. Discharge Plan Discharge Clinical Impression: Decubitus ulcer of sacral area Patient Disposition: Home Condition: Stable Instructions: Chronic Wounds (ED) Additional Instructions: Return ER if you have fever 100.4? F, you have malodorous discharge from your wound, or have additional concerns. Speak to your doctor about seeing a multimedia educational specialist. Patient Language: Bahraini Prescriptions: No Action diphenhydramine HCl [Benadryl Allergy] 25 mg tablet 25 mg PO QHS PRN (Reason: rash) ipratropium-albuterol 0.5 mg-3 mg(2.5 mg base)/3 mL solution for nebulization 3 ml INHALATION Q6H PRN (Reason: copd) oxycodone 5 mg tablet 5 mg PO Q6H PRN (Reason: pain) clobetasol 0.05 % cream 1 applic TOPICAL BID Xarelto 10 mg tablet 10 mg PO DAILY montelukast [Singulair] 10 mg tablet 10 mg PO HS geriatric multivitamin-min Capsule 1 cap PO DAILY ascorbic acid (vitamin C) 500 mg capsule, extended release 500 mg PO DAILY Santyl 250 unit/gram ointment 1 applic topical DAILY Rx Instructions: Apply to right lateral foot topically daily for wound. Apply to sacrum, coccyx topically every day shift for wounds. Cleanse sacrum and coccyx with wound cleanser or NS, apply santyl to wound bed cover with dakins moistened fluffed gauze, cover with sacral border foam dressing. cyanocobalamin (vitamin B-12) [Vitamin B-12] 1,000 mcg Tablet 1,000 mcg PO QAM Qty: 30 0RF sennosides-docusate sodium [Senokot-S] 8.6-50 mg Tablet 1 tab-cap PO HS Qty: 30 0RF dextrose [Glutose-15] 40 % Gel 15 g PO PRN PRN (Reason: Hypoglycemia) Qty: 112.5 0RF lactulose 10 gram/15 mL Solution 20 g PO BID Qty: 500 0RF levofloxacin 750 mg tablet 750 mg PO DAILY Qty: 4 0RF bisacodyl 10 mg Suppository 10 mg RECTAL QAM PRN (Reason: Constipation) Qty: 12 0RF cholecalciferol (vitamin D3) 25 mcg (1,000 unit) Tablet 25 mcg PO DAILY Qty: 30 0RF polyethylene glycol 3350 [Miralax] 17 gram Powder In Packet 17 g PO QAM Qty: 14 0RF midodrine 2.5 mg Tablet 10 mg PO TID Qty: 90 0RF naloxone 0.4 mg/mL syringe 0.4 mg subcut Q2-3M PRN (Reason: opioid reversal) Qty: 10 0RF Rx Instructions: NTExceed 10 mg total dose/episode linezolid 600 mg Tablet 600 mg PO BID 6 Days Qty: 12 0RF levofloxacin 500 mg tablet 500 mg PO DAILY 6 Days Qty: 6 0RF Breztri Aerosphere 160-9-4.8 mcg/actuation HFA aerosol inhaler 2 inh inhalation BID Qty: 10.7 3RF Rebif (with albumin) 44 mcg/0.5 mL syringe See Rx Instructions subcut 3XW Qty: 12 5RF Dose Instruction: INJECT 44MCG (0.5ML) UNDER THE SKIN 3 TIMES PER WEEK Rx Instructions: INJECT 44MCG (0.5ML) UNDER THE SKIN 3 TIMES PER WEEK subcutaneously 3 times a week; Follow-up/Referrals: Aishwarya Potter DO [Physician, Family Practice] - 1 Week
--- NOTE | 2025-09-03 11:05 | PC.NURSE ---
Report given to Cat RN, all questions answered
== END 2025-09-03 15:30 | disposition home or self-care (01) ==
PROVIDERS: Emergency Provider Emergency Medicine; PCP Psychiatry & Neurology Neurology
DX: L89.159 Pressure ulcer of sacral region, unspecified stage (principal); G35.D Multiple sclerosis, unspecified; Z87.891 Personal history of nicotine dependence
CPT/HCPCS: 36415; 72193; 80053; 85025; 85652; 86140; 99284; Q9967

== ENCOUNTER 2025-09-06 11:27 | Inpatient (IN) | payer MEDICARE, SELFPAY ==
--- OUTSIDE RECORDS SUMMARY | 2025-06-30 18:00 | XMS_ITS | Continuity of Care Document ---
Author Organization [facility] Address [address] [place] [id number] Phone Care Team Providers Care Abstract Writer Name Role Phone Tejinder KEATING, FACC, Rohit Unavailable Unavail able Procedures Procedure Date ELECTROCARDIOGRAM REPORT EXTRACRANIAL STUDY TTE W/DOPPLER, COMPLETE Advance Directives Directive Yes / No Effective Date File Name No Information Encounters Encounter Description Practice Location Reason(s) For Visit Diagnoses Date Provider Providers Copied on Encounter [facility], [address] [place] [address], [id number], tel:[phone] [facility] Inpt No Information Tejinder Bee. [address] [place] [address], [id number], . tel:[phone] Referring Provider: Rohit Hatch, [address] [place] [address], [id number]. tel:[phone] [facility], [address] [place] [address], [id number], tel:[phone] [facility] OP No Information Tejinder Bee. [address] [place] [address], [id number], . tel:[phone] Referring Provider: Rohit Hatch, [address] [place], [place] [address] [place], [address]. tel:[phone] [facility], [address] [place] [address], [id number], tel:[phone] [facility] OP No Information Tejinder Bee. [address], [place], [place], [id number], . tel:[phone] Referring Provider: Rohit Hatch, [address], [place], [address]. tel:[phone] Family History Family Member Type Diagnosis Age At Onset No Information Payers Payer name Insurance type Covered alliance party ID Authoriza tianaid(s) [facility] MEDICARE ADVANTAGE HMO [id number] Social History Type Description Quantity Date Captured Comments Sex Male Smoking Status No Information Chief Complaint And Reason For Visit No Information Reason For Referral Reason For Referral No Information History Of Present Illness Encounter Date Complaint History Of Prese nt Illness No Information Functional Status Date Functional Assessmen t No Information Instructions Date Instruction Additional Infor mation No Information Assessments Type Assessment Date No Information Patient Care Teams Name Effective Dates (start - stop) Status Members No Information
[2025-09-06] VITALS (34 sets, daily range): BP systolic 73–149; BP diastolic 44–133; PULSE 97–137; RESP 16–29; TEMP 37.1–38.6; O2SAT 67–100; BMI 18.0
--- NOTE | ~2025-09-06 | US_ITS ---
EXAMINATION: US venous doppler [facility], 09/07/2025 13:30 HEDDLER TIER HISTORY: PE COMPARISON: None Technique: Kendrick-scale and color Doppler images were attempted of the lower saphenofemoral junction, common femoral vein,superficial femoral vein, proximal deep femoral vein, proximal deep femoral vein, popliteal vein and posterior tibial veins. Findings: Deep Venous System:Normal flow, augmentation and compressibility. No echogenic thrombus identified. Superficial Venous SystemNo superficial thrombophlebitis. Soft tissues: Soft tissues are unremarkable. Impression: Negative for DVT. Reviewed, dictated and finalized at location P. LER TIER Impression: Negative for DVT.
--- NOTE | ~2025-09-06 | CT_ITS ---
EXAMINATION: CTA chest abdomen pelvis DATE: 09/06/2025 14:07 JEWELRY JOBBER INDICATION: Hemorrhage from Mondragon. TECHNIQUE: Computed tomographic angiography (CTA) of the chest, abdomen, and pelvis was performed without and with 100 mL Omnipaque-350 intravenous contrast. The dose-length product was 414.22 mGy-cm. Maximum intensity projection 3D- reconstructions of the aorta and other arteries were constructed by the technologist on a separate workstation. COMPARISON: CT dated 09/03/2025. FINDINGS: CHEST/ABDOMEN/PELVIS CTA: Emphysema. No endobronchial lesions. No focal airspace consolidation to suggest pneumonia. Right lower lobe atelectasis. No pneumothorax. No thoracic lymphadenopathy. There is fluid in the esophagus, consistent with reflux. There are large air-fluid levels present in the stomach, likely ileus. Multiple air- fluid levels are present in the small bowel, also compatible with ileus. Small amount of free fluid in the abdomen and pelvis. There is diffuse subcutaneous edema. Enlarged pulmonary arteries consistent with pulmonary hypertension. Filling defect present in right upper and middle lobe segmental and subsegmental pulmonary artery, consistent with pulmonary embolism. Gallstones. Fatty infiltration of the liver. The spleen, pancreas, adrenal glands and kidneys are unremarkable. There is diffuse bladder wall thickening with mural enhancement. Mondragon catheter present in the bladder. No fistula identified. Mild stranding surrounding the bladder, consistent with cystitis. There is a left renal cysts. No evidence for aortic aneurysm or dissection. There is a dynamic compression screw transfixing right femoral neck fracture with intramedullary boo. IMPRESSION: 1. Filling defect right upper and middle lobe segmental and subsegmental pulmonary artery consistent with pulmonary embolism, small thrombus burden. 2: Interval development of extensive mural thickening and enhancement within the bladder wall, consistent with cystitis. No evidence for bladder fistula. Mondragon catheter present. 3: Extensive subcutaneous edema with small volume of ascites, consistent with anasarca. Dr. Tariq Rivero discussed with Dr. Hector Pritchard MD at 09/06/2025 14:17 JEWELRY JOBBER. Reviewed, dictated and finalized at location O. LRY JOBBER IMPRESSION: 1. Filling defect right upper and middle lobe segmental and subsegmental pulmon jordan artery consistent with pulmonary embolism, small thrombus burden. 2: Interval development of extensive mural thickening and enhancement within th e bladder wall, consistent with cystitis. No evidence for bladder fistula. Fole y catheter present. 3: Extensive subcutaneous edema with small volume of ascites, consistent with a nasarca. Dr. Tariq Rivero discussed with Dr. Hector Pritchard MD at 09/06/2025 14:17 JEWELRY JOBBER .
--- NOTE | ~2025-09-06 | XR_ITS ---
EXAM/PROCEDURE: XR barium swallow modified HISTORY: dysphagia COMPARISON: None available. TECHNIQUE: Standard technique for modified barium swallow performed. Fossa time: 0.8 minutes DAP : 0.8 Kendrick per square centimeter Barium preparation was used. FINDINGS: Aspiration on thin sequences observed. IMPRESSION: Aspiration with thin barium. See also speech therapist notes for complete evaluation. Reviewed, dictated and finalized at location A. NSIVE COORDINATOR IMPRESSION: Aspiration with thin barium. See also speech therapist notes for complete evalu ation.
--- NOTE | ~2025-09-06 | US_ITS ---
US renal BI CLINICAL INDICATION:acute renal failure . COMPARISON: None. FINDINGS: The right kidney measures 11.8 x 6.3 x 6 cm. The left kidney measures 12.3 x 5.4 x 4.9 cm. Renal contour and echotexture are unremarkable. Left renal cyst measures 2 cm. .There is no hydronephrosis. There is a Mondragon catheter within the bladder.. IMPRESSION: There is a Mondragon catheter within the bladder. Left renal cyst measures 2 cm. Reviewed, dictated and finalized at location S. GY CONSERVATION DIRECTOR
--- NOTE | ~2025-09-06 | XR_ITS ---
EXAMINATION: XR chest port-a-cath/central COMPARISON: No comparisons available. HISTORY: sepsis PT IN KYPHOSIS AND POSE FINDINGS: The lungs are clear, no effusion. No pneumothorax. Heart is normal size. Mediastinal and hilar contours are within normal limits. Bony thorax no acute abnormality. Miscellaneous: None Impression: No acute cardiopulmonary abnormality. Reviewed, dictated and finalized at location P. TOIR SUPERVISOR Impression: No acute cardiopulmonary abnormality.
--- NOTE | 2025-09-06 11:45 | ECG_ITS ---
Test Date: 2025-09-06 15:23:36 Measurements Intervals [place] Rate: 129 P: 74 VA: 144 QRS: 63 QRSD: 75 T: 75 QT: 368 QTc: 540 Interpretive Statements SINUS TACHYCARDIA NONSPECIFIC T-WAVE ABNORMALITY ABNORMAL RHYTHM ECG Compared to ECG 07/26/2025 15:23:21 T-wave abnormality now present Electronically Signed On 09-06-2025 21:22:43 ROD PLACER by Dulce Maria Faust M.D.
--- NOTE | 2025-09-06 11:51 | ED_ITS ---
HPI - General Adult General Chief complaint: Recheck/Abnormal Lab/Rx <ARABELLA ePnn - Last Filed: 09/07/25 15:53> Stated complaint: wounds - septic <ARABELLA Penn - Last Filed: 09/07/25 15:53> Time Seen by Provider: 09/06/25 11:30 <ARABELLA Penn - Last Filed: 09/07/25 15:53> Source: patient, EMS, RN notes reviewed and old records reviewed <ARABELLA Penn - Last Filed: 09/07/25 15:53> Mode of arrival: EMS <ARABELLA Penn - Last Filed: 09/07/25 15:53> Limitations: altered mental status and clinical condition <ARABELLA Penn - Last Filed: 09/07/25 15:53> History of Present Illness HPI narrative: 69-year-old male arrived by EMS from [facility]. Report given to nursing staff. Nursing informed me patient is altered and cannot respond to any questions. Patients eyes open and stated he is in pain. Blood in depends. New pressure dressings marked 09/06 on his lower back. Patient is very thin and frail. Seen by Dr. Escobar at this facility 09/03 for his chronic sacral ulcer and was discharged home in stable condition. <ARABELLA Penn - Last Filed: 09/07/25 15:53> Related Data Home medications: Home Medications ?Medication ?Instructions ?Recorded ?Confirmed ?Last Taken ?Type ascorbic acid (vitamin C) 500 mg 500 mg PO DAILY Wound s 07/27/25 09/06/25 07/25/25 History capsule,extended release clobetasol 0.05 % topical cream 1 applic topical BID r toney 07/27/25 09/06/25 07/26/25 History collagenase clostridium histo. 250 1 applic topical DA LETICIA 07/27/25 09/06/25 07/26/25 History unit/gram topical ointment (Santyl) geriatric multivitamin-min 1 cap PO DAILY Wounds 07/2709/06/25 07/25/25 History ipratropium 0.5 mg-albuterol 3 mg 3 ml inhalation Q6H PRN copd 07/27/25 09/06/25 07/26/25 History (2.5 mg base)/3 mL nebulization soln montelukast 10 mg tablet 10 mg PO HS 07/27/25 5 07/25/25 History (Singulair) oxycodone 5 mg tablet 5 mg PO Q6H PRN pain 5 09/06/25 07/26/25 History rivaroxaban 10 mg tablet (Xarelto) 10 mg PO DAILY 07/0509/06/25 07/26/25 History interferon beta-1a 30 mcg/0.5 mL 30 mcg IM WEEKLY 02/2509/06/25 Unknown History intramuscular pen injector (Avonex) magnesium citrate (Citroma oral 296 ml PO DAILY PRN co nstipation 09/06/25 09/06/25 Unknown History solution) magnesium hydroxide 400 mg/5 mL 30 ml PO DAILY PRN con stipation 09/06/25 09/06/25 Unknown History oral suspension (Milk of Magnesia) sodium phosphates 19 gram-7 118 ml RECTAL DAILY PRN 09/06/25 Unknown History gram/118 mL enema (Fleet Enema) constipation <ARABELLA Penn - Last Filed: 09/07/25 15:53> Allergies/adverse reactions: Allergies Allergy/AdvReac Type Severity Reaction Status Date / Time No Known Allergies Allergy Verified 09/06/25 17:48 <ARABELLA Penn - Last Filed: 09/07/25 15:53> Review of Systems 2 Review of Systems: Limited due to disposition. <ARABELLA Penn - Last Filed: 09/07/25 15:53> [facility] Past Medical History Medical History: Medical History Metabolic encephalopathy Secondary to infected decubitus ulcer, August 2025 Tobacco use COPD (chronic obstructive pulmonary disease) Multiple sclerosis BMI 22.0-22.9, adult <ARABELLA Penn - Last Filed: 09/07/25 15:53> Surgical History Surgical History: Surgical History History of hip surgery Right hip pinning June 2024 at [place] Hx of tonsillectomy <ARABELLA Penn - Last Filed: 09/07/25 15:53> Family History Family History: Family History Father Liver cancer Mother No problems noted. Sibling No problems noted. <ARABELLA Penn - Last Filed: 09/07/25 15:53> Social History Social History: Social History Smoking packs per day: 1.5 Smoking cigarettes per day: 30.0 Years smoked: 50 Smoking pack-years: 75.00 Smoking status: Unknown if ever smoked Second hand tobacco smoke exposure: Yes Alcohol intake: never Substance use: never Substance use type: unknown Do You Feel Safe in your Home?: Yes Lack of Transportation: No Lack of Food: Never True Current Housing: I Have Housing Concerned About Future Housing: No Difficulty Paying Gas/Electric Bills: No Difficulty Paying for Meds: No Currently Unemployed: No Education: High School Diploma/GED Difficulty w/ Childcare or Family Care: No Living arrangements: alone Occupation/Education: retired Additional occupation/education comments: [employer] Gender identity (if verbalized by the patient): Male Spiritual care concerns: No <ARABELLA Penn - Last Filed: 09/07/25 15:53> Exam 2 Narrative: GENERAL: Ill-appearing, frail, in acute distress. Blood in depends. SKIN: Cool and dry. Lower back ulcer dressing dated 09/06 NEURO: A&O x0 <ARABELLA Penn - Last Filed: 09/07/25 15:53> APPEARANCE: Toxic appearing EYES: EOMI HEENT: Normocephalic, atraumatic, mucous membranes dry RESPIRATORY: No respiratory distress Clear to auscultation bilaterally with no rhonchi wheezing or rales. CARDIOVASCULAR: Regular rate and rhythm without murmurs rubs or gallops. ABDOMINAL: Soft, nontender, nondistended, no rebound or guarding MUSCULOSKELETAl: Moves all extremities. No clubbing, cyanosis or edema. NEURO: Awake and alert but not oriented. No focal deficits SKIN:: Cool and clammy. Sacral decubitus ulcer <Hector Pritchard DO - Last Filed: 09/06/25 21:47> Course Vital Signs Vital signs: Vital Signs Temperature 99.2 F 09/06/25 11:54 Temperature 98.5 F 09/07/25 12:00 Pulse Rate 93 09/07/25 13:00 Respiratory Rate 20 09/07/25 13:00 Blood Pressure 107/58 L 09/07/25 13:00 Pulse Oximetry 98 09/07/25 13:00 Oxygen Delivery Nasal Cannula 09/07/25 12:00 Oxygen Flow Rate 2 09/07/25 12:00 Fraction of Inspired Oxygen 36 09/07/25 12:00 <ARABELLA Penn - Last Filed: 09/07/25 15:53> Vital Signs Temperature 99.2 F 09/06/25 11:54 Temperature 98.5 F 09/07/25 12:00 Pulse Rate 93 09/07/25 13:00 Respiratory Rate 20 09/07/25 13:00 Blood Pressure 107/58 L 09/07/25 13:00 Pulse Oximetry 98 09/07/25 13:00 Oxygen Delivery Nasal Cannula 09/07/25 12:00 Oxygen Flow Rate 2 09/07/25 12:00 Fraction of Inspired Oxygen 36 09/07/25 12:00 <Hector Pritchard DO - Last Filed: 09/06/25 21:47> Procedures Central Line Placement Left IJ: Central Line Date: 09/06/25 <Hector Pritchard DO - Last Filed: 09/06/25 21:47> Central Line Time: 12:15 <Hector Pritchard DO - Last Filed: 09/06/25 21:47> Discussed w/ the patient/family/POA,the placement of a central venous catheter, including its clinical necessity/indication & associated potential risks, benifits and alternatives.: Yes <DO Dayami Agudelo Last Filed: 09/06/25 21:47> The patient/family/POA understand(s) and acknowledge(s) the need to proceed with central venous catheter insertion as an important element of the patient's clinical management.: Yes <Hector Pritchard DO - Last Filed: 09/06/25 21:47> Patient Placed on Monitor/Pulse Ox: Yes <Hector Pritchard DO - Last Filed: 09/06/25 21:47> Max. Sterile Barrier Technique: Caps, large sterile sheet and hand hygiene <Hector Pritchard Last Filed: 09/06/25 21:47> Central Line Prep: 2% chlorhexidine scrub and sterile drapes applied <Hector Pritchard - Last Filed: 09/06/25 21:47> Technique: US-Guided <Hector Pritchard Last Filed: 09/06/25 21:47> Local Anesthetic: lidocaine 1% <Hector Pritchard - Last Filed: 09/06/25 21:47> Amount of anesthesia used (mL): 5 <Hector Pritchard Last Filed: 09/06/25 21:47> Ultrasound Used for Placement: Yes <Hector Pritchard Last Filed: 09/06/25 21:47> Central Line Lumen Inserted: triple <Hector Pritchard Last Filed: 09/06/25 21:47> Post Procedure: sutured in place, good blood return, all ports aspirated, flushed, capped and sterile dressing applied <Hector Pritchard Last Filed: 09/06/25 21:47> Post Procedure X-Ray: tip of catheter in good position and no pneumothorax seen <Hector Pritchard - Last Filed: 09/06/25 21:47> Patient Tolerated Procedure: well <Hector Pritchard Last Filed: 09/06/25 21:47> Complications: none <Hector Pritchard Last Filed: 09/06/25 21:47> Medical Decision Making MDM Narrative Medical decision making narrative: 69-year-old male arrived by EMS from [facility]. Report given to nursing staff. Nursing informed me patient is altered and cannot respond to any questions. Patients eyes open and stated he is in pain. Blood in depends. New pressure dressings marked 11/4 on his lower back. Patient is very thin and frail. Seen by Dr. Escobar at this facility 09/03 for his chronic sacral ulcer and was discharged home in stable condition. According to nursing, patient was very hypotensive in route to ED. They state that he responded to 1 L of fluids. Ordered sepsis workup and another 1 L of fluids. Patient continued to decline. Signed over care to Dr. Pritchard. <ARABELLA Penn - Last Filed: 09/07/25 15:53> 69-year-old male arrived by EMS from [facility]. Report given to nursing staff. Nursing informed me patient is altered and cannot respond to any questions. Patients eyes open and stated he is in pain. Blood in depends. New pressure dressings marked 09/06 on his lower back. Patient is very thin and frail. Seen by Dr. Escobar at this facility 09/03 for his chronic sacral ulcer and was discharged home in stable condition. According to nursing, patient was very hypotensive in route to ED. They state that he responded to 1 L of fluids. Ordered sepsis workup and another 1 L of fluids. Patient continued to decline. Signed over care to Dr. Pritchard. Assumed care of this patient from [facility] Differentials include but are not limited to: CVA, TIA, ICH, meningitis, UTI, cancer, drug intoxication, hypoglycemia, electrolyte abnormality Patient hypotensive on arrival with maps in the 50s to 60s. Nursing was unable to obtain reliable IV access so central line was placed, refer to procedure note above, patient tolerated procedure well. Patient did have improvement of blood pressure after this. Consent was obtained from emergency contacts. There was very dark urine from his indwelling Mondragon and concerns for hematuria and possibly obstructing clots so CBI catheter was placed but had 1 L of what appear to be gross hematuria from his bladder. As patient was intermittently on stable at this point, he was given 2 units PRBCs prophylactically given the amount of blood. There was certainly concerns for a significant bleeding and possibly a arterial fistula so CTA chest/abdomen/pelvis was obtained. This revealed significant cystitis but also revealed multiple PEs. Patient was found have a leukocytosis at 36.5 with hemoglobin of 11.6. Lactic acidosis at 5.3. Patient was started on vanc/cefepime for the hemorrhagic cystitis and lactic acidosis. Patient's blood pressure continued to fluctuate so I do think that he would benefit from ICU admission. I discussed the case with nipple machine operator, Dr. Snider, who will see the patient in consult in the ICU, does not recommend starting anticoagulation at this time. I also spoke with with urology who saw the patient as consult and did try to irrigate his bladder here in the ED, no additional recommendations from their standpoint at this time.. case was discussed with hospitalist who will admit the patient. I had a discussion with the patient's daughter who does want the patient to be DNR at this point but does want all treatment up to the point of cardiac arrest. CRITICAL CARE Indication: Time type: intermittent I provided a total of 75 minutes of critical care excluding separately billable procedures. This includes time w/ EMS, initial bedside evaluation, reviewing old records, review of testing done while under my care, discussion w/ the family, nurses, environmental consultant and guiding the patient?s care while in the emergency department. Approximate time distribution: 15 minutes ? Initial evaluation, d/w involved parties, attempting to gather old records. 10 minutes ? Documenting medical record 15 minutes ? Review of results (EKGs, labs, imaging) 20 minutes ? Serial repeat bedside evaluation 15 minutes ? Discussing case with multiple providers <Hector Pritchard DO - Last Filed: 09/06/25 21:47> Medical Records Medical records reviewed: Yes I reviewed the external patient's medical records. <ARABELLA Penn - Last Filed: 09/07/25 15:53> Vital Signs Vital Signs: Vital Signs Temperature 99.2 F 09/06/25 11:54 Temperature 98.5 F 09/07/25 12:00 Pulse Rate 93 09/07/25 13:00 Respiratory Rate 20 09/07/25 13:00 Blood Pressure 107/58 L 09/07/25 13:00 Pulse Oximetry 98 09/07/25 13:00 Oxygen Delivery Nasal Cannula 09/07/25 12:00 Oxygen Flow Rate 2 09/07/25 12:00 Fraction of Inspired Oxygen 36 09/07/25 12:00 <ARABELLA Penn - Last Filed: 09/07/25 15:53> Vital Signs Temperature 99.2 F 09/06/25 11:54 Temperature 98.5 F 09/07/25 12:00 Pulse Rate 93 09/07/25 13:00 Respiratory Rate 20 09/07/25 13:00 Blood Pressure 107/58 L 09/07/25 13:00 Pulse Oximetry 98 09/07/25 13:00 Oxygen Delivery Nasal Cannula 09/07/25 12:00 Oxygen Flow Rate 2 09/07/25 12:00 Fraction of Inspired Oxygen 36 09/07/25 12:00 <Hector Pritchard DO - Last Filed: 09/06/25 21:47> Lab Data Result diagrams: 09/07/25 15:21 09/07/25 05:32 <ARABELLA Penn - Last Filed: 09/07/25 15:53> Labs: Lab Results 09/06/25 09/06/25 09/06/25 Range/Units 13:23 14:37 15:36 WBC 36.5 H (4.5-10.0) K/mm3 RBC 4.02 L (4.6-6.20) M/mm3 Hgb 11.6 L 14.4 (14.0-18.0) g/dL Hct 38.2 L 46.9 (42.0-52.0) % MCV 95.0 (80-100) fl MCH 28.9 (26-34) pg MCHC 30.4 L (32-36) g/dl RDW 16.7 H (11.5-14.5) % Plt Count 325 (150-375) k/mm3 MPV 10.6 H (7.4-10.4) fl Immature Gran % (Auto) 1.3 H (0-0.5) % Neut % (Auto) 94.3 H (45.5-73.1) % Lymph % (Auto) 2.7 L (18.3-44.2) % [place] % (Auto) 1.3 L (2.6-8.5) % Eos % (Auto) 0.0 (0-4.4) % Baso % (Auto) 0.4 (0.2-1.2) % Lymph # (Auto) 0.99 (0.9-3.2) K/mm3 [place] # (Auto) 0.5 (0.1-0.6) K/mm3 Eos # (Auto) 0.0 (0-0.3) K/mm3 Baso # (Auto) 0.1 (0.0-0.1) K/mm3 Abs Immat Gran (auto) 0.48 H (0.00-0.031) K/mm3 Absolute Neuts (auto) 34.4 H (1.3-6.7) K/mm3 Absolute Nucleated RBC 0.000 (0.0-0.012) K/mm3 Nucleated RBC % 0.0 (0.0-0.2) % PT 14.7 (11.1-14.7) Seconds INR 1.1 APTT 31.4 (22.3-36.8) Seconds Sodium 140 (137-145) mmol/L Potassium 4.2 (3.4-5.0) mmol/L Chloride 107 (98-107) mmol/L Carbon Dioxide 22 (22-30) mmol/L Anion Gap 11 (4-12) mmol/L BUN 34 H D (9-20) mg/dL Creatinine 2.31 H 2.60 H (0.7-1.3) mg/dL Estim Creat Clear Calc Not Reportable Not Reportable Estimated GFR 28 L 25 L (59 - ) Glucose 147 H (65-110) mg/dL Lactic Acid 5.3 H* (0.7-2.0) mmol/L Calcium 7.9 L (8.4-10.2) mg/dL Total Bilirubin 0.5 (0.2-1.3) mg/dL AST 34 (17-59) U/L ALT 23 (6-50) U/L Alkaline Phosphatase 77 (38-126) U/L C-Reactive Protein 6.3 H (<1.0) mg/dL Total Protein 5.8 L (6.3-8.2) g/dL Albumin 3.0 L (3.5-5.1) g/dL Blood Type O Positive Antibody Screen Negative Crossmatch See Detail <ARABELLA Penn - Last Filed: 09/07/25 15:53> Lab Results 09/06/25 09/06/25 09/06/25 Range/Units 13:23 14:37 15:36 WBC 36.5 H (4.5-10.0) K/mm3 RBC 4.02 L (4.6-6.20) M/mm3 Hgb 11.6 L 14.4 (14.0-18.0) g/dL Hct 38.2 L 46.9 (42.0-52.0) % MCV 95.0 (80-100) fl MCH 28.9 (26-34) pg MCHC 30.4 L (32-36) g/dl RDW 16.7 H (11.5-14.5) % Plt Count 325 (150-375) k/mm3 MPV 10.6 H (7.4-10.4) fl Immature Gran % (Auto) 1.3 H (0-0.5) % Neut % (Auto) 94.3 H (45.5-73.1) % Lymph % (Auto) 2.7 L (18.3-44.2) % [place] % (Auto) 1.3 L (2.6-8.5) % Eos % (Auto) 0.0 (0-4.4) % Baso % (Auto) 0.4 (0.2-1.2) % Lymph # (Auto) 0.99 (0.9-3.2) K/mm3 [place] # (Auto) 0.5 (0.1-0.6) K/mm3 Eos # (Auto) 0.0 (0-0.3) K/mm3 Baso # (Auto) 0.1 (0.0-0.1) K/mm3 Abs Immat Gran (auto) 0.48 H (0.00-0.031) K/mm3 Absolute Neuts (auto) 34.4 H (1.3-6.7) K/mm3 Absolute Nucleated RBC 0.000 (0.0-0.012) K/mm3 Nucleated RBC % 0.0 (0.0-0.2) % PT 14.7 (11.1-14.7) Seconds INR 1.1 APTT 31.4 (22.3-36.8) Seconds Sodium 140 (137-145) mmol/L Potassium 4.2 (3.4-5.0) mmol/L Chloride 107 (98-107) mmol/L Carbon Dioxide 22 (22-30) mmol/L Anion Gap 11 (4-12) mmol/L BUN 34 H D (9-20) mg/dL Creatinine 2.31 H 2.60 H (0.7-1.3) mg/dL Estim Creat Clear Calc Not Reportable Not Reportable Estimated GFR 28 L 25 L (59 - ) Glucose 147 H (65-110) mg/dL Lactic Acid 5.3 H* (0.7-2.0) mmol/L Calcium 7.9 L (8.4-10.2) mg/dL Total Bilirubin 0.5 (0.2-1.3) mg/dL AST 34 (17-59) U/L ALT 23 (6-50) U/L Alkaline Phosphatase 77 (38-126) U/L C-Reactive Protein 6.3 H (<1.0) mg/dL Total Protein 5.8 L (6.3-8.2) g/dL Albumin 3.0 L (3.5-5.1) g/dL Blood Type O Positive Antibody Screen Negative Crossmatch See Detail <Hector Pritchard DO - Last Filed: 09/06/25 21:47> Imaging Data Attestation: I personally reviewed and interpreted this imaging study as follows: < Hector Pritchard DO - Last Filed: 09/06/25 21:47> My impression: Chest x-ray: Tip of the CBC is in the right superior vena cava, no pneumothorax <Hector Pritchard DO - Last Filed: 09/06/25 21:47> Radiologist's impression: ITS Impressions Chest X-Ray 09/06/25 12:50 Impression: No acute cardiopulmonary abnormality. Chest/Abdomen/Pelvis CTA 09/06/25 14:07 IMPRESSION: 1. Filling defect right upper and middle lobe segmental and subsegmental pulmonary artery consistent with pulmonary embolism, small thrombus burden. 2: Interval development of extensive mural thickening and enhancement within the bladder wall, consistent with cystitis. No evidence for bladder fistula. Mondragon catheter present. 3: Extensive subcutaneous edema with small volume of ascites, consistent with anasarca. Dr. Tariq Rivero discussed with Dr. Hector Pritchard MD at 09/06/2025 14:17 [employer]. <ARABELLA Penn - Last Filed: 09/07/25 15:53> ECG Data EKG #1: Attestation: I personally reviewed and interpreted this ECG as follows: <Hector Pritchard DO - Last Filed: 09/06/25 21:47> ECG completion date: 09/06/25 <Hector Pritchard DO - Last Filed: 09/06/25 21:47> ECG completion time: 15:23 <Hector Pritchard DO - Last Filed: 09/06/25 21:47> Interpretation: Sinus tachycardia rate of 29, normal axis, prolonged QTC at 540, nonspecific T-wave change, no ST changes <Hector Pritchard DO - Last Filed: 09/06/25 21:47> Discharge Plan Discharge Clinical Impression: Acute hemorrhagic cystitis, Septic shock, Pulmonary embolism, CHELSEA (acute kidney injury) <ARABELLA Penn - Last Filed: 09/07/25 15:53> Patient Disposition: Still a Patient <ARABELLA Penn - Last Filed: 09/07/25 15:53> Condition: Serious <ARABELLA Penn - Last Filed: 09/07/25 15:53>
[2025-09-06] MEDS: SODIUM CHLORIDE 0.9% IV 1,000 ML 999 ML IV CONT (12:40)
--- NOTE | 2025-09-06 13:30 | PC.NURSE ---
Pt has immense amount of BRB from newly placed 3 way catheter. around 700ml. EDP, Staceyh called to bedside. Catheter clamped and pt transported to CT stat.
--- NOTE | 2025-09-06 13:34 | PC.NURSE ---
order to place 3 way catheter old cath deflated and removed blood draining from the meatus [address] catheter placed on 1 attempt immediate bleeding noted EDP to room prior to started CBI. EDP asks for the pt to be taken to ct scan prior to beginning CBI
[2025-09-06 13:41] LABS: Estimated Glomerular Filt Rate 25
[2025-09-06 13:43] LABS: Hematocrit 38.2 % (42.0-52.0); Hemoglobin 11.6 g/dL (14.0-18.0); Immature Granulocyte Percent A 1.3 % (0-0.5); Lymphocytes Absolute Auto 0.99 K/mm3 (0.9-3.2); Mean Corpuscular HGB Conc 30.4 g/dl (32-36); Mean Corpuscular Hemoglobin 28.9 pg (26-34); Mean Corpuscular Volume 95.0 fl (80-100); Nucleated Red Blood Cells Absolute Auto 0.000 K/mm3 (0.0-0.012); Nucleated Red Blood Cells Perc 0.0 % (0.0-0.2); Platelet Count Result 325 k/mm3 (150-375); Red Blood Count 4.02 M/mm3 (4.6-6.20); White Blood Count 36.5 K/mm3 (4.5-10.0)
[2025-09-06 13:57] LABS: INR 1.1; Partial Thromboplastin Time 31.4 Seconds (22.3-36.8); Prothrombin Time 14.7 Seconds (11.1-14.7)
[2025-09-06 13:58] LABS: Alanine Aminotransferase 23 U/L (6-50); Albumin Level 3.0 g/dL (3.5-5.1); Alkaline Phosphatase 77 U/L (38-126); Anion Gap 11 mmol/L (4-12); Aspartate Amino Transferase 34 U/L (17-59); Bilirubin,Total 0.5 mg/dL (0.2-1.3); Blood Urea Nitrogen 34 mg/dL (9-20); Calcium 7.9 mg/dL (8.4-10.2); Carbon Dioxide 22 mmol/L (22-30); Chloride 107 mmol/L (98-107); Estimated Glomerular Filt Rate 28; Glucose 147 mg/dL (65-110); Potassium 4.2 mmol/L (3.4-5.0); Sodium 140 mmol/L (137-145); Total Protein 5.8 g/dL (6.3-8.2)
[2025-09-06] MEDS: TUBING, BLOOD SET 2 EACH XX (14:00)
[2025-09-06] MEDS: SODIUM CHLORIDE 0.9% IV 250 ML 30 ML IV CONT (14:01)
[2025-09-06 14:59] LABS: CRP 6.3 mg/dL (<1.0)
--- NOTE | 2025-09-06 15:26 | PC.NURSE ---
Tip called to get second set of cultures on pt.
[2025-09-06 15:43] LABS: Hematocrit 46.9 % (42.0-52.0); Hemoglobin 14.4 g/dL (14.0-18.0)
--- NOTE | 2025-09-06 15:56 | WPDURCON ---
Assessment and Plan Assessment and plan (1) Gross hematuria: Code(s): R31.0 - Gross hematuria Status: Acute Assessment and Plan: - Hand irrigated with 1 L saline; no significant clot, urine light pink at the end - Started on CBI, continue to run to clear urine - Trend Hgb, currently stable at 14 - Continue broad spectrum Abx - Last UCx grew out drew; consider antifungal - Pt with PE needing anticoagulation, however, continues to have significant gross hematuria. Defer to hospitalist team to determine risks vs benefits of AC use for known PEs. - Case discussed with Dr. Reynaga Urology Consult Note HPI Date Seen: 09/06/25 Primary Care Provider: Gino Morin MD Consult Narrative Narrative: Pt is a 69 year old M on Xarelto who is immobile, catheter dependent and living in custodial with decubitus ulcer to the sacrum and recent admission for sepsis and respiratory distress thought to be related to sacral ulcer vs UTI who presents to the ED via EMS with AMS and blood around his catheter for whom urology is consulted for presumed hemorrhagic cystitis. Pt unable to provide Hx; taken from ED staff. On presentation pt catheter was exchanged for three way in anticipation of CBI and 1 L of dark red urine effluxed. No significant clot seen. CT A/P obtained which describes circumferential bladder wall thickening concerning for hemorrhagic cystitis. Was given 2 units of blood in the ED and started on vancomycin and cefepime. Review of Systems Review of Systems: All systems reviewed & are unremarkable except as noted in HPI and below PMFSH Past Medical History Medical History (Updated 09/06/25 @ 16:07 by ARABELLA Grey) Metabolic encephalopathy Tobacco use COPD (chronic obstructive pulmonary disease) Multiple sclerosis BMI 22.0-22.9, adult Abnormal gait Surgical History Surgical History History of hip surgery Right hip pinning June 2024 at [place] Hx of tonsillectomy Family History Family History Father Liver cancer Mother No problems noted. Sibling No problems noted. Social History Social History Smoking packs per day: 1.5 Smoking cigarettes per day: 30.0 Years smoked: 50 Smoking pack-years: 75.00 Smoking status: Former smoker Second hand tobacco smoke exposure: Yes Alcohol intake: unknown Substance use: unknown Substance use type: unknown Do You Feel Safe in your Home?: Yes Lack of Transportation: No Lack of Food: Never True Current Housing: I Have Housing Concerned About Future Housing: No Difficulty Paying Gas/Electric Bills: No Difficulty Paying for Meds: No Currently Unemployed: No Education: High School Diploma/GED Difficulty w/ Childcare or Family Care: No Living arrangements: alone Occupation/Education: retired Additional occupation/education comments: [employer] Gender identity (if verbalized by the patient): Male Spiritual care concerns: No Meds Home Medications and Allergies Home Medications ?Medication ?Instructions ?Recorded ?Confirmed ?Type diphenhydramine HCl 25 mg tablet 25 mg PO QHS PRN rash 08/06/22 07/27/25 History (Benadryl Allergy) budesonide 160 mcg-glycopyr 9 2 inh inhalation BID #10.7 grams 02/17/25 07/27/25 Rx mcg-formot 4.8 mcg/actuation HFA inhaler (Breztri Aerosphere) interferon beta-1a (albumin) 44 See Rx Instructions subcut 3XW #12 05/05/25 07/27/25 Rx mcg/0.5 mL subcutaneous syringe syringes (Rebif (with albumin)) ascorbic acid (vitamin C) 500 mg 500 mg PO DAILY Wounds 07/27/25 07/27/25 History capsule,extended release clobetasol 0.05 % topical cream 1 applic topical BID rash 07/27/25 07/27/25 History collagenase clostridium histo. 250 1 applic topical DAILY 07/27/25 07/27/25 History unit/gram topical ointment (Santyl) geriatric multivitamin-min 1 cap PO DAILY Wounds 07/27/25 07/27/25 History ipratropium 0.5 mg-albuterol 3 mg 3 ml inhalation Q6H PRN copd 07/27/25 07/27/25 History (2.5 mg base)/3 mL nebulization soln montelukast 10 mg tablet 10 mg PO HS 07/27/25 07/27/25 History (Singulair) oxycodone 5 mg tablet 5 mg PO Q6H PRN pain 07/27/25 07/27/25 History rivaroxaban 10 mg tablet (Xarelto) 10 mg PO DAILY 07/27/25 07/27/25 History bisacodyl 10 mg rectal suppository 10 mg RECTAL QAM PRN Constipation 08/11/25 Rx #12 ea cholecalciferol (vitamin D3) 25 25 mcg PO DAILY #30 tabs 08/11/25 Rx mcg (1,000 unit) tablet cyanocobalamin (vitamin B-12) 1,000 mcg PO QAM #30 tabs 08/11/25 Rx 1,000 mcg tablet (Vitamin B-12) dextrose 40 % oral gel (Glutose-15) 15 g PO PRN PRN Hypoglycemia 08/11/25 Rx #112.5 grams lactulose 10 gram/15 mL oral 20 g (30 mL) PO BID #500 mL 08/11/25 Rx solution levofloxacin 500 mg tablet 500 mg PO DAILY 6 days #6 tabs 08/11/25 Rx levofloxacin 750 mg tablet 750 mg PO DAILY #4 tabs 08/11/25 Rx linezolid 600 mg tablet 600 mg PO BID 6 days #12 tabs 08/11/25 Rx midodrine 2.5 mg tablet 10 mg (4 x 2.5 mg) PO TID #90 tabs 08/11/25 Rx naloxone 0.4 mg/mL injection 0.4 mg subcut Q2-3M PRN opioid 08/11/25 Rx syringe reversal #10 mL polyethylene glycol 3350 17 gram 17 g PO QAM #14 ea 08/11/25 Rx oral powder packet (Miralax) sennosides 8.6 mg-docusate sodium 1 tab-cap PO HS #30 tabs 08/11/25 Rx 50 mg tablet (Senokot-S) Allergies Allergy/AdvReac Type Severity Reaction Status Date / Time No Known Allergies Allergy Verified 07/27/25 13:01 Vital Signs Vital Signs - 24 hr 09/06/25 11:54 09/06/25 12:00 09/06/25 13:51 Temperature 37.3 C 37.4 C 38.6 C H Pulse Rate 135 H 135 H Respiratory Rate 26 H 23 H Blood Pressure 89/62 L 89/62 L Pulse Oximetry 96 97 Oxygen Delivery Room Air 09/06/25 13:56 09/06/25 14:05 09/06/25 14:11 Temperature 38.6 C H 38.6 C H 38.6 C H Pulse Rate 135 H 137 H 137 H Respiratory Rate 23 H 25 H 25 H Blood Pressure 116/68 102/64 102/64 Pulse Oximetry 96 96 96 Oxygen Delivery 09/06/25 15:14 Temperature 38.0 C H Pulse Rate 125 H Respiratory Rate 23 H Blood Pressure 101/63 Pulse Oximetry 97 Oxygen Delivery Exam Const: Other: Pt laying in bed, minimally responsive to questions Eyes: General: appearance normal, both eyes and all related structures Resp: Effort & Inspection: normal respiratory effort Urinary Catheter: Urinary Catheter: patent and draining, urine dark and urine red (No clots) Skin: General skin exam: normal color Psych: Speech and movement: No Normal speech and movement present Results Labs 09/06/25 15:36 09/06/25 14:37 Labs: Short CBC 09/06/25 09/06/25 Range/Units 13:23 15:36 WBC 36.5 H (4.5-10.0) K/mm3 Hgb 11.6 L 14.4 (14.0-18.0) g/dL Hct 38.2 L 46.9 (42.0-52.0) % Plt Count 325 (150-375) k/mm3 BMP 09/06/25 09/06/25 13:23 14:37 Sodium 140 Potassium 4.2 Chloride 107 Carbon Dioxide 22 BUN 34 H D Creatinine 2.31 H 2.60 H Glucose 147 H Calcium 7.9 L Liver Function 09/06/25 Range/Units 13:23 Total Bilirubin 0.5 (0.2-1.3) mg/dL AST 34 (17-59) U/L ALT 23 (6-50) U/L Alkaline Phosphatase 77 (38-126) U/L Albumin 3.0 L (3.5-5.1) g/dL
--- NOTE | 2025-09-06 16:00 | PC.NURSE ---
CBI started after bladder irrigation by ARABELLA Ramirez from Urology
[2025-09-06] MEDS: CEFEPIME 1 GM in SODIUM CHLORIDE 0.9% IV 50 ML 100 ML IVPB (16:35)
--- NOTE | 2025-09-06 17:35 | PM.IMHP ---
H&P: HPI History of Present Illness Date/Time: 09/06/25 17:35 Chief Complaint: AMS Narrative: 69 y/o M with PMH of multiple sclerosis, COPD, bedbound, and decubitus ulcer presents here with altered mental status. The patient presents here from a local [facility]pc on 09/06 for further evaluation of altered mental status. HPI obtained through chart review, EMS report, ED provider report, and family report as the patient is altered. Per EMS, they were not provided with much information about the patient beyond that he was more altered than usual. Per chart review, the patient was recently admitted here from 07/26/2025 to 08/11/2025 for altered mental status, sepsis (UTI and/or decubitus ulcer), decubitus ulcer to the sacrum, left heel, and right lateral foot. He underwent a sharp excisional debridement of his stage IV sacral decubitus ulcer on 07/27/2025. During his stay he had acute respiratory distress which was felt to be secondary to a CHF exacerbation for which he was gently diuresed, echo showed grade 1 diastolic dysfunction with a preserved EF. Patient's altered mental status was contributed to metabolic encephalopathy, may have been exacerbated by a B12/vitamin-D deficiency. Patient also developed a postop ileus for which he was treated with MiraLax and Senokot. Patient was also evaluated by Infectious Disease due to his urine culture growing Nehal orthopsilosis, however the did not feel it with pathogenic at that time. Initial VS at presentation: 99.2? F (now 100.4? F), HR 135, RR 26, 89/62, and 96% on RA. ED workup showed: WBC 36.5, initial hemoglobin 11.6 (11.9 on 09/03), normal coags, creatinine 2.31 and GFR 28 (previously 0.5 and GFR >60 on 09/03), lactic 5.3, calcium 7.9 in the setting of an albumin of 3.0, CRP 6.3. Mondragon replaced and patient had annette blood, so unable to obtain UA at time of admission. CXR showed no acute cardiopulmonary abnormality. CTA of the chest/abdomen/pelvis showed a filling defect of the right upper and middle lobe segmental and subsegmental pulmonary artery consistent with pulmonary embolism with small thrombus burden, interval development of extensive mural thickening and enhancement within the bladder wall consistent with cystitis with no evidence of bladder fistula and Mondragon catheter present, extensive subcutaneous edema with small volume of ascites consistent with anasarca. Review of Systems Review of Systems: ROS unobtainable: Yes unobtainable due to mental status PMFSH Past Medical History Medical History Metabolic encephalopathy Secondary to infected decubitus ulcer, August 2025 Tobacco use COPD (chronic obstructive pulmonary disease) Multiple sclerosis BMI 22.0-22.9, adult Surgical History Surgical History History of hip surgery Right hip pinning June 2024 at [place] Hx of tonsillectomy Family History Family History Father Liver cancer Mother No problems noted. Sibling No problems noted. Social History Social History Smoking packs per day: 1.5 Smoking cigarettes per day: 30.0 Years smoked: 50 Smoking pack-years: 75.00 Smoking status: Unknown if ever smoked Second hand tobacco smoke exposure: Yes Alcohol intake: never Substance use: never Substance use type: unknown Do You Feel Safe in your Home?: Yes Lack of Transportation: No Lack of Food: Never True Current Housing: I Have Housing Concerned About Future Housing: No Difficulty Paying Gas/Electric Bills: No Difficulty Paying for Meds: No Currently Unemployed: No Education: High School Diploma/GED Difficulty w/ Childcare or Family Care: No Living arrangements: alone Occupation/Education: retired Additional occupation/education comments: [employer] Gender identity (if verbalized by the patient): Male Spiritual care concerns: No Meds Home Medications and Allergies Home Medications ?Medication ?Instructions ?Recorded ?Confirmed ?Type budesonide 160 mcg-glycopyr 9 2 inh inhalation BID #10.7 grams 02/17/25 09/06/25 Rx mcg-formot 4.8 mcg/actuation HFA inhaler (Breztri Aerosphere) ascorbic acid (vitamin C) 500 mg 500 mg PO DAILY Wounds 07/27/25 09/06/25 History capsule,extended release clobetasol 0.05 % topical cream 1 applic topical BID rash 07/27/25 09/06/25 History collagenase clostridium histo. 250 1 applic topical DAILY 07/27/25 09/06/25 History unit/gram topical ointment (Santyl) geriatric multivitamin-min 1 cap PO DAILY Wounds 07/27/25 09/06/25 History ipratropium 0.5 mg-albuterol 3 mg 3 ml inhalation Q6H PRN copd 07/27/25 09/06/25 History (2.5 mg base)/3 mL nebulization soln montelukast 10 mg tablet 10 mg PO HS 07/27/25 09/06/25 History (Singulair) oxycodone 5 mg tablet 5 mg PO Q6H PRN pain 07/27/25 09/06/25 History rivaroxaban 10 mg tablet (Xarelto) 10 mg PO DAILY 07/27/25 09/06/25 History bisacodyl 10 mg rectal suppository 10 mg RECTAL QAM PRN Constipation 08/11/25 09/06/25 Rx #12 ea sennosides 8.6 mg-docusate sodium 1 tab-cap PO HS #30 tabs 08/11/25 09/06/25 Rx 50 mg tablet (Senokot-S) interferon beta-1a 30 mcg/0.5 mL 30 mcg IM WEEKLY 09/06/25 09/06/25 History intramuscular pen injector (Avonex) magnesium citrate (Citroma oral 296 ml PO DAILY PRN constipation 09/06/25 09/06/25 History solution) magnesium hydroxide 400 mg/5 mL 30 ml PO DAILY PRN constipation 09/06/25 09/06/25 History oral suspension (Milk of Magnesia) sodium phosphates 19 gram-7 118 ml RECTAL DAILY PRN 09/06/25 09/06/25 History gram/118 mL enema (Fleet Enema) constipation Allergies Allergy/AdvReac Type Severity Reaction Status Date / Time No Known Allergies Allergy Verified 09/06/25 17:48 Vital Signs Vital Signs - 24 hr 09/06/25 11:54 09/06/25 12:00 09/06/25 13:51 Temperature 99.2 F 99.4 F 101.4 F H Pulse Rate 135 H 135 H Respiratory Rate 26 H 23 H Blood Pressure 89/62 L 89/62 L Pulse Oximetry 96 97 Oxygen Delivery Room Air 09/06/25 13:56 09/06/25 14:05 09/06/25 14:11 Temperature 101.4 F H 101.4 F H 101.4 F H Pulse Rate 135 H 137 H 137 H Respiratory Rate 23 H 25 H 25 H Blood Pressure 116/68 102/64 102/64 Pulse Oximetry 96 96 96 Oxygen Delivery 09/06/25 15:14 09/06/25 17:17 Temperature 100.4 F H Pulse Rate 125 H 130 H Respiratory Rate 23 H 23 H Blood Pressure 101/63 73/68 L Pulse Oximetry 97 96 Oxygen Delivery Exam Const: Other: , older than stated age, cachectic, ill-appearing HENMT: Face/Nose/Sinus: Normal nares present Mouth: Yes dry mucous membranes Eyes: General: appearance normal, both eyes and all related structures Sclera: sclerae normal Pupils: Equal, round and reactive pupils present (Pupils 4 mm bilaterally) EOM: EOMs intact bilaterally Neck: Other: Left IJ present Resp: Other: Moderate tachypnea without accessory muscle use, no wheezing or crackles on exam, however exam difficult due to repetitive moaning Cardio: Rate: tachycardic Rhythm: regular rhythm Other: No murmur or rub appreciated GI: Other: Abdomen soft, nondistended, nontender. Normoactive bowel sounds in all quadrants. Urinary Catheter: Urinary Catheter: patent and draining (CBI in place, clear to pink tinged) Skin: General skin exam: normal color Other: Bilateral ulcerations to heels and left hip unstageable, dressings CDI. Large stage IV sacral decubitus ulcer over the sacrum present, see photos. Mild odor noted. Some serosanguineous/purulent drainage. Wound bed has some small areas of yellow superficial slough off, otherwise pink and some granulated tissue noted. Small area of erythema, non blanchable to the left knee likely stage I pressure ulcer. Neuro: Other: Awake, some verbal responses. A&O times 0. Moving all extremities. PERRLA. Extrem: General: normal exam except as noted (See skin exam) Psych: Other: Poor insight and judgment at present, restless H&P: Results Labs Labs: Short CBC 09/06/25 09/06/25 Range/Units 13:23 15:36 WBC 36.5 H (4.5-10.0) K/mm3 Hgb 11.6 L 14.4 (14.0-18.0) g/dL Hct 38.2 L 46.9 (42.0-52.0) % Plt Count 325 (150-375) k/mm3 BMP 09/06/25 09/06/25 13:23 14:37 Sodium 140 Potassium 4.2 Chloride 107 Carbon Dioxide 22 BUN 34 H D Creatinine 2.31 H 2.60 H Glucose 147 H Calcium 7.9 L Liver Function 09/06/25 Range/Units 13:23 Total Bilirubin 0.5 (0.2-1.3) mg/dL AST 34 (17-59) U/L ALT 23 (6-50) U/L Alkaline Phosphatase 77 (38-126) U/L Albumin 3.0 L (3.5-5.1) g/dL Assessment and Plan Assessment and plan (1) Sepsis: Qualifiers: Acute renal failure type: unspecified Sepsis acute organ dysfunction status: with acute organ dysfunction Sepsis type: sepsis due to unspecified organism Severe sepsis acute organ dysfunction type: acute renal failure Severe sepsis shock status: with septic shock Qualified Code(s): A41.9 - Sepsis, unspecified organism; R65.21 - Severe sepsis with septic shock; N17.9 - Acute kidney failure, unspecified Code(s): A41.9 - Sepsis, unspecified organism Status: Acute Assessment and Plan: Patient met sepsis criteria due to heart rate and respiratory rate as well as shock due to acute hypotension. Lose BP recorded in the ED 73/68. Initial lactic 5.3. Patient has history of recent decubitus ulcer infection requiring annette debridement in July of 2025. Patient is also showing signs of UTI via imaging showing cystitis and annette hematuria, currently unable to obtain UA due to annette blood. Mondragon however was exchanged on 09/06. Given his critical nature upon arrival to the emergency department, and emergent central line to the left IJ was placed. Patient is now being admitted to the ICU with developmental behavioral physician consulted for close hemodynamic monitoring. - lactic elevated, trend. Add procalcitonin - blood cultures obtained on 09/06, follow - need UA, however has annette blood and showing signs of cystitis on CT. Reviewed previous micro and patient grew Nehal, discussed patient's case with ID pharmacist who recommended fluconazole that was renally adjusted for his CHELSEA for better urine penetration. Will preemptively treat for UTI given these factors with the fluconazole and cefepime, started on 09/06. - patient received a 2L bolus in the ED, 30 mL/kg is 1.8 L -> 100 mL/hr. Patient's albumin also depleted which may be contributing to his hypotension, will replete and monitor. (2) Metabolic encephalopathy: Code(s): G93.41 - Metabolic encephalopathy Status: Acute Assessment and Plan: Patient arrived altered. Most recent admission patient was also altered felt to be secondary to metabolic encephalopathy due to UTI, sacral infection, and B12/vitamin-D deficiencies. All current clinical picture concerning for UTI. Started on cefepime and fluconazole due to previous micro and due to patient meeting sepsis with shock criteria. - monitor mentation (3) Pulmonary embolism: Qualifiers: Acute cor pulmonale presence: without acute cor pulmonale Chronicity: acute Pulmonary embolism type: other Qualified Code(s): I26.99 - Other pulmonary embolism without acute cor pulmonale Code(s): I26.99 - Other pulmonary embolism without acute cor pulmonale Status: Acute Assessment and Plan: CTA of the chest/abdomen/pelvis performed on 09/06 in the ED. Imaging showed 1. Filling defect right upper and middle lobe segmental and subsegmental pulmonary artery consistent with pulmonary embolism, small thrombus burden. 2: Interval development of extensive mural thickening and enhancement within the bladder wall, consistent with cystitis. No evidence for bladder fistula. Mondragon catheter present. 3: Extensive subcutaneous edema with small volume of ascites, consistent with anasarca. Patient is however on Xarelto outpatient. Given flank bleeding from Mondragon, will hold off on heparin gtt at this time. Trend hemoglobin/hematocrit. No current hypoxia, has maintained an O2 sat between 96 and 97% on room air. - check echo - trend troponin - monitor for hypoxia (4) Gross hematuria: Code(s): R31.0 - Gross hematuria Status: Acute Assessment and Plan: Mondragon replaced in the ED for a UA due to concerns for infection on 09/06. Per ED provider, when the Mondragon was placed the patient had 1L of annette blood out. Given patient's hemodynamic instability he was emergently given 2 units of PRBC (Hgb 11.6 -> 14.4). CT suspicious for cystitis. CBI initiated in the emergency room apartment on 09/06. Urology consulted. Suspect annette hematuria secondary to UTI, started on cefepime and fluconazole due to previous micro results. - continue CBI - trend H&H - will need UA once annette bleeding has resolved - urology consulted, see note (5) UTI (urinary tract infection): Qualifiers: Hematuria presence: with hematuria Urinary tract infection type: acute cystitis Qualified Code(s): N30.01 - Acute cystitis with hematuria Code(s): N39.0 - Urinary tract infection, site not specified Status: Suspected Assessment and Plan: Arrived with annette blood from his Mondragon. CT concerning for cystitis. Currently unable to obtain UA due to annette blood. - previous micro reviewed, patient grew Nehal orthopsilosis on 07/26/2025 - started on cefepime and fluconazole on 09/06 (6) CHELSEA (acute kidney injury): Code(s): N17.9 - Acute kidney failure, unspecified Status: Acute Assessment and Plan: Upon admission the patient's creatinine was 2.31, BUN 34, GFR 28. Previous lab work from 09/03 showed a creatinine of 0.5, BUN 7, and GFR >60. Patient arrived with annette bleeding and concerns for UTI which may be factor in patient's CHELSEA. - check renal ultrasound, CK, urine lytes, protein/creatinine, urea - awaiting UA - monitor I&Os - nephrology consulted (7) Sacral decubitus ulcer, stage IV: Code(s): L89.154 - Pressure ulcer of sacral region, stage 4 Status: Acute Assessment and Plan: Patient has history of infected stage IV decubitus ulcer that underwent sharp debridement on 07/27/2025. Some soft signs of infection upon presentation given mild odor and very mild pre and drainage. Started on vancomycin and cefepime. - wound RN consulted (8) Grade I diastolic dysfunction: Code(s): I51.89 - Other ill-defined heart diseases Status: Acute Assessment and Plan: Per chart review, patient has history of mild diastolic dysfunction. Most recent echo from 2020 which showed an EF of 65%, mild diastolic dysfunction, no pericardial effusion, and no valvular disease. - given IV fluids due to concern for septic shock, monitor toleration - monitor I&Os - obtaining echo due to PE seen on CTA - CT also concerning for anasarca, however patient unable to be diuresed at this time due to hemodynamic instability (9) Multiple sclerosis: Code(s): G35 - Multiple sclerosis Status: Chronic Assessment and Plan: History of multiple sclerosis. On interferon prior to admission, plan to resume once infection/hemodynamic stability better controlled. - monitor mentation (10) COPD (chronic obstructive pulmonary disease): Qualifiers: COPD type: unspecified COPD Qualified Code(s): J44.9 - Chronic obstructive pulmonary disease, unspecified Code(s): J44.9 - Chronic obstructive pulmonary disease, unspecified Status: Chronic Assessment and Plan: No wheezing on exam or hypoxia noted upon admission. Low concern for COPD exacerbation. - DuoNeb p.r.n. Plan Diet: NPO GI Prophylaxis: DVT Prophylaxis: SCDs, current medical contraindication for anticoagulation due to annette hematuria IV fluids: 2L bolus Lines/Tubes: Peripheral IV, left IJ central line, Mondragon catheter Code Status: DNR/DNI per the patient's daughter, okay with central line and pressors Quality VTE Prophylaxis VTE prophylaxis: mechanical ordered Critical Care Time: I personally spent 45 minutes of direct patient care including (but not limited to) the physical examination, decision-making, bedside evaluation, review of medical records, review of labs and imaging, discussion with nursing staff and other providers for collaborative, critical care management of this patient. Hospitalist [facility] Advance Care Plan I have confirmed that the patient's Advanced Care Plan is present, code status is documented, or surrogate decision maker is listed in patient medical record.: Yes Medication Reconciliation I have utilized all available resources to obtain, update and review the patients current medications (includes all prescriptions, OTC, herbals, cannabis, and nutritional supplements).: Yes
--- NOTE | 2025-09-06 17:37 | ADMGEN ---
This patient, Bashir Gruber , was admitted to Intensive Care Unit-3. Patient/family oriented to hospital policies and general routines including ID bracelet, bed and alarms, visiting hours, pain management, procedures, bathroom and other care routines, personal items, smoking policy, room service/diet, and visiting hours. Information on how to activate the Rapid Response Team has been discussed. Patient/Family are encouraged to report perceived risks to care and to ask questions if they do not understand what they are told or what they should do.
[2025-09-06] MEDS: VANCOMYCIN HCL 1,000 MG in SODIUM CHLORIDE 0.9% IV 250 ML 250 MG IVPB (19:00)
[2025-09-06] MEDS: FLUCONAZOLE 200 MG/NACL 100 ML 200 MG/100 ML BAG 100 MG IVPB (19:00)
[2025-09-06] MEDS: LACTATED RINGERS 1,000 ML 100 ML IV CONT (19:00)
--- NOTE | 2025-09-06 19:58 | WNDPHOTO ---
PHOTO ONLY - See Nursing Notes and/ or assessments for documentation.
--- NOTE | 2025-09-06 19:59 | WNDPHOTO ---
PHOTO ONLY - See Nursing Notes and/ or assessments for documentation.
--- NOTE | 2025-09-06 19:59 | WNDPHOTO ---
PHOTO ONLY - See Nursing Notes and/ or assessments for documentation.
[2025-09-06 20:44] LABS: Hematocrit 41.0 % (42.0-52.0); Hemoglobin 13.2 g/dL (14.0-18.0); Mean Corpuscular HGB Conc 32.2 g/dl (32-36); Mean Corpuscular Hemoglobin 29.3 pg (26-34); Mean Corpuscular Volume 91.1 fl (80-100); Platelet Count Result 242 k/mm3 (150-375); Red Blood Count 4.50 M/mm3 (4.6-6.20); White Blood Count 44.1 K/mm3 (4.5-10.0)
[2025-09-06] MEDS: ALBUMIN HUMAN 25% 25 GM/100 ML 100 ML IVPB (20:47)
[2025-09-06 20:55] LABS: Creatine Kinase 173 U/L (55-170)
[2025-09-06 21:12] LABS: Troponin I 0.023 ng/mL (0.000-0.034)
[2025-09-06 21:58] LABS: MRSA (PCR) DETECTED (NOT DETECTE)
[2025-09-07] VITALS (21 sets, daily range): BP systolic 87–147; BP diastolic 56–85; PULSE 81–120; RESP 10–26; TEMP 36.3–38.2; O2SAT 94–100; BMI 18.3
--- NOTE | 2025-09-07 | ECHO_ITS ---
Patient Info Name: Bashir Gruber Age: 69 years : 1955 Gender: Male Ht: 71 in Wt: 103 lbs BSA: 1.50 m2 HR: 96 bpm BP: 107 / 60 mmHg Technical Quality: Poor Exam Date: 09/07/2025 9:32 AM Patient Status: I Admit Date: 09/06/2025 Exam Type: CA echo dop color flow w con Complete two-dimensional, color flow and Doppler transthoracic echocardiogram is performed with contrast to opacify the left ventricle and to improve the deliniation of the left ventricle endocardial borders. Staff Referring Physician: Joseph Snider MD Membership Sales Advisor: Cameron Schmitz III Attending Provider: Baltazar Messer Oca Contrast/Agitated Saline Contrast/Ag. Saline: Definity Amount: 2.00 ml Administered By: Cameron Schmitz III Existing IV Access: Yes IV Access Condition: patent with no signs of infiltration Reason for Poor Study: patient body habitus Summary 1. Definity contrast administered improved wall motion interpretation. 2. Left ventricular chamber dimension is normal. 3. Left ventricular systolic function is normal, estimated at 65-70. 4. The left ventricular diastolic function is normal. 5. E/e' 6 is not elevated. 6. No pulmonary hypertension, estimated pulmonary arterial systolic pressure is 35 mmHg. Left Ventricle E/e' 6 is not elevated. Left ventricular chamber dimension is normal. Left ventricular systolic function is normal, estimated at 65-70. The left ventricular diastolic function is normal. Definity contrast administered improved wall motion interpretation. Right Ventricle Right ventricular chamber dimension is normal. Right ventricular systolic function is normal and with normal TAPSE 3.4 cm. Left Atria Left atrial chamber dimension is normal. Right Atria Right atrial chamber dimension is normal. Aortic Valve The aortic valve is trileaflet. There is no aortic valve stenosis. There is no aortic valve regurgitation. Pulmonic Valve There is no pulmonic regurgitation. Mitral Valve There is no mitral valve stenosis. There is no mitral valve regurgitation. Tricuspid Valve There is no tricuspid valve regurgitation. No pulmonary hypertension, estimated pulmonary arterial systolic pressure is 35 mmHg. Pericardium/Pleural There is no pericardial effusion. Inferior Vena Cava Normal inferior vena cava with >50% collapse upon inspiration consistent with normal right atrial pressure, 5 mmHg. Aorta The aortic root size at the sinus of Valsalva is normal. Left Ventricular Outflow Tract Name Value Normal LVOT 2D LVOT Diameter 2.2 cm LVOT Doppler LVOT Peak Velocity 119 cm/s LVOT Peak Gradient 6 mmHg LVOT Mean Gradient 2 mmHg LVOT VTI 22 cm LVOT VTI/AV VTI Ratio 1.0 LVOT Stroke Volume 82 ml LVOT CO 8.0 l/min LVOT CI 5.3 l/min/m2 Pulmonic Valve Name Value Normal PV Doppler PV Peak Velocity 116 cm/s PV Peak Gradient 5 mmHg PV Mean Gradient 3 mmHg Mitral Valve Name Value Normal MV Doppler MV Peak Gradient 5 mmHg MV Mean Gradient 3 mmHg MV Area (Cont Eq VTI) 3.8 cm2 MV Diastolic Function MV E Peak Velocity 87 cm/s MV A Peak Velocity 84 cm/s MV E/A 1.0 MV Decel Time (PW) 209 ms MV Annular TDI MV E/e' (Septal) 7.9 MV E/e' (Lateral) 5.8 MV E/e' (Average) 6.9 Tricuspid Valve Name Value Normal TV Regurgitation Doppler TR Peak Velocity 274 cm/s TR Peak Gradient 30 mmHg Estimated PAP/RSVP RA Pressure 5 mmHg <=5 PA Systolic Pressure 35 mmHg <36 RV Systolic Pressure 35 mmHg <36 TV Annular TDI TV Lateral Letty s' Velocity 21.2 cm/s >=9.5 Aortic Valve Name Value Normal AV Doppler AV Peak Velocity 135 cm/s AV Peak Gradient 7 mmHg AV Mean Gradient 4 mmHg AV VTI 22 cm AV Area (Cont Eq VTI) 3.7 cm2 >=3.0 AV Area (Cont Eq Pablo) 3.3 cm2 AV DI (Pablo) 0.88 AV Regurgitation 2D LVOT Area 3.7 cm2 Ventricles Name Value Normal LV Dimensions 2D/MM IVS Diastolic Thickness (2D) 1.0 cm 0.6-1.0 LVID Diastole (2D) 3.5 cm 4.2-5.8 LVIW Diastolic Thickness (2D) 1.0 cm 0.6-1.0 LVID Systole (2D) 2.6 cm 2.5-4.0 LVOT Diameter 2.2 cm LV Mass (2D Cubed) 104.22 g 88.00-224.00 LV Mass Index (2D Cubed) 69 g/m2 49-115 Relative Wall Thickness (2D) 0.55 <=0.42 LV Fractional Shortening/Ejection Fraction 2D/MM LV Fractional Shortening (2D) 31 % 25-43 LV EF (2D Teichholz) 53 % LV Diastolic Volume (4C MOD) 86 ml LV EF (4C MOD) 47 % LV Diastolic Volume (2C MOD) 95 ml LV EF (2C MOD) 63 % LV Diastolic Volume (BP MOD) 92 ml 62-150 LV Diastolic Volume Index (BP MOD) 61 ml/m2 34-74 LV Systolic Volume (BP MOD) 42 ml 21-61 LV Systolic Volume Index (BP MOD) 28 ml/m2 11-31 LV EF (BP MOD) 55 % 52-72 LV Diastolic Length (4C) 8.4 cm LV Systolic Length (4C) 6.7 cm LV Stroke Volume (4C MOD) 41 ml Atria Name Value Normal LA Dimensions LA Volume (4C A-L) 53 ml LA Volume (BP A-L) 46 ml RA Dimensions RA Systolic Major [place] Length (4C) 5.5 cm 2.1-2.7 RA Area (4C) 17.3 cm2 <=18.0 Report Signatures
[2025-09-07] MEDS: ALBUMIN HUMAN 25% 25 GM/100 ML 100 ML IVPB ×3 (00:11→12:00)
[2025-09-07 00:30] LABS: Troponin I 0.026 ng/mL (0.000-0.034)
[2025-09-07 00:45] LABS: Procalcitonin 8.3 ng/mL
[2025-09-07] MEDS: LACTATED RINGERS 1,000 ML 100 ML IV CONT (04:12)
[2025-09-07 05:39] LABS: Hematocrit 36.1 % (42.0-52.0); Hemoglobin 11.4 g/dL (14.0-18.0); Mean Corpuscular HGB Conc 31.6 g/dl (32-36); Mean Corpuscular Hemoglobin 29.4 pg (26-34); Mean Corpuscular Volume 93.0 fl (80-100); Platelet Count Result 198 k/mm3 (150-375); Red Blood Count 3.88 M/mm3 (4.6-6.20); White Blood Count 34.1 K/mm3 (4.5-10.0)
[2025-09-07] MEDS: ALTEPLASE 2 MG VIAL (CATHFLO) IV PUSH (05:56)
[2025-09-07 06:05] LABS: Alanine Aminotransferase 14 U/L (6-50); Albumin Level 3.3 g/dL (3.5-5.1); Alkaline Phosphatase 65 U/L (38-126); Anion Gap 8 mmol/L (4-12); Aspartate Amino Transferase 36 U/L (17-59); Bilirubin,Total 0.7 mg/dL (0.2-1.3); Blood Urea Nitrogen 36 mg/dL (9-20); Calcium 8.5 mg/dL (8.4-10.2); Carbon Dioxide 25 mmol/L (22-30); Chloride 110 mmol/L (98-107); Estimated CRCL calculation 40 ml/min; Estimated Glomerular Filt Rate > 60; Glucose 114 mg/dL (65-110); Magnesium 1.7 mg/dL (1.6-2.3); Potassium 3.4 mmol/L (3.4-5.0); Sodium 143 mmol/L (137-145); Total Protein 5.8 g/dL (6.3-8.2)
[2025-09-07 08:32] LABS: Add Urine Microscopic? YES; Appearance Urine Turbid (Clear); Glucose Urine UA Negative (Negative); Leukocyte Esterase Ur 3+ LEU/UL (Negative); Nitrate Urine Negative (Negative); Specific Grav Ur 1.013 (1.001-1.035)
[2025-09-07 08:33] LABS: Need Manual Microscopic Reviewed
[2025-09-07 08:46] LABS: Urea Random Urine 332 MG/DL
[2025-09-07 08:48] LABS: Total Protein Urine Random 104 mg/dL; Ur Ttl Prot Creatinine Ratio 4.56 mg/mg (0-0.20)
--- NOTE | 2025-09-07 08:51 | WPDCNINT ---
Assessment and Plan Assessment and plan (1) Sepsis: Qualifiers: Acute renal failure type: unspecified Sepsis acute organ dysfunction status: with acute organ dysfunction Sepsis type: sepsis due to unspecified organism Severe sepsis acute organ dysfunction type: acute renal failure Severe sepsis shock status: with septic shock Qualified Code(s): A41.9 - Sepsis, unspecified organism; R65.21 - Severe sepsis with septic shock; N17.9 - Acute kidney failure, unspecified Code(s): A41.9 - Sepsis, unspecified organism Status: Acute Assessment and Plan: Sepsis secondary to UTI. With history of Nehal UTI. Blood and urine cultures Empiric vancomycin cefepime and fluconazole Patient overall volume overloaded. Will hold further IV fluids and monitor (2) Acute hemorrhagic cystitis: Code(s): N30.01 - Acute cystitis with hematuria Status: Acute Assessment and Plan: See above (3) Grade I diastolic dysfunction: Code(s): I51.89 - Other ill-defined heart diseases Status: Acute Assessment and Plan: Hold further IV fluid (4) Pulmonary embolism: Qualifiers: Pulmonary embolism type: other Chronicity: acute Acute cor pulmonale presence: without acute cor pulmonale Qualified Code(s): I26.99 - Other pulmonary embolism without acute cor pulmonale Code(s): I26.99 - Other pulmonary embolism without acute cor pulmonale Status: Acute Assessment and Plan: CTA confirmed PE. I will check an echocardiogram and a extremity venous Dopplers. In light of significant hematuria anticoagulation will be held. Depending on how he does he may need a tPA candidate for AA anticoagulation and may need IVC filter. Will wait another 24 hours to see if urine clears and will start heparin drip if hematuria resolves. (5) CHLESEA (acute kidney injury): Code(s): N17.9 - Acute kidney failure, unspecified Status: Acute Assessment and Plan: Secondary to sepsis hypotension and hypovolemia Renal function improved with IV fluids Creatinine now normalized Monitor urine output electrolytes and creatinine (6) Gross hematuria: Code(s): R31.0 - Gross hematuria Status: Acute Assessment and Plan: Urology consulted. Anticoagulation held. Treatment of UTI as above CBI to be continued (7) COPD (chronic obstructive pulmonary disease): Qualifiers: COPD type: unspecified COPD Qualified Code(s): J44.9 - Chronic obstructive pulmonary disease, unspecified Code(s): J44.9 - Chronic obstructive pulmonary disease, unspecified Status: Chronic Assessment and Plan: Bronchodilators p.r.n. Plan DVT prophylaxis -SCD Nutrition -NPO. Consult speech for swallow evaluation Code Status -patient is DNR Total Critical Care Time - 30 minutes Due to a high probability of clinically significant, life threatening deterioration, the patient required my highest level of preparedness to intervene emergently and I personally spent this critical care time directly and personally managing the patient. This critical care time included obtaining a history; examining the patient; pulse oximetry; ordering and review of studies; arranging urgent treatment with development of a management plan; evaluation of patient's response to treatment; frequent reassessment; and discussions with other providers. It was exclusive of separately billable procedures and treating other patients and teaching time. 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 Patient was recently admitted at [facility] and treated for mental status when he was found to be having infection of his sacral decubitus wound. He received antibiotic therapy and debridement and was discharged on 08/11/2025. During that time his urine culture also grew Nehal. He is on Xarelto for anticoagulation. On this hospitalization history was not obtainable from patient and patient was sent because of change in mental status. Workup in the ER showed Initial presentation vitals 99.2? F (now 100.4? F), HR 135, RR 26, 89/62, and 96% on RA. WBC 36.5, initial hemoglobin 11.6 (11.9 on 09/03), normal coags, creatinine 2.31 and GFR 28 (previously 0.5 and GFR >60 on 09/03), lactic 5.3, calcium 7.9 in the setting of an albumin of 3.0, CRP 6.3. Mondragon replaced and patient had annette blood CXR showed no acute cardiopulmonary abnormality. CTA of the chest/abdomen/pelvis showed a filling defect of the right upper and middle lobe segmental and subsegmental pulmonary artery consistent with pulmonary embolism with small thrombus burden, interval development of extensive mural thickening and enhancement within the bladder wall consistent with cystitis with no evidence of bladder fistula and Mondragon catheter present, extensive subcutaneous edema with small volume of ascites consistent with anasarca. Patient was given IV fluids, PRBC transfusion, started on antibiotics, urology was consulted and admitted to ICU with CBI. This morning when I evaluated the patient he is awake moves all 4 extremity follows commands intermittently but does not answer any questions or provide any meaningful history he moans and mumbles but does not answer any questions meaningfully. Review of system is not obtainable. Review of Systems Review of Systems: ROS unobtainable: Yes unobtainable due to medical condition and unobtainable due to mental status PMFSH Past Medical History Medical History Metabolic encephalopathy Secondary to infected decubitus ulcer, July/August 2025 Tobacco use COPD (chronic obstructive pulmonary disease) Multiple sclerosis BMI 22.0-22.9, adult Surgical History Surgical History History of hip surgery Right hip pinning June 2024 at [facility] Hx of tonsillectomy Family History Family History Father Liver cancer Mother No problems noted. Sibling No problems noted. Social History Social History Smoking packs per day: 1.5 Smoking cigarettes per day: 30.0 Years smoked: 50 Smoking pack-years: 75.00 Smoking status: Unknown if ever smoked Second hand tobacco smoke exposure: Yes Alcohol intake: never Substance use: never Substance use type: unknown Do You Feel Safe in your Home?: Yes Lack of Transportation: No Lack of Food: Never True Current Housing: I Have Housing Concerned About Future Housing: No Difficulty Paying Gas/Electric Bills: No Difficulty Paying for Meds: No Currently Unemployed: No Education: High School Diploma/GED Difficulty w/ Childcare or Family Care: No Living arrangements: alone Occupation/Education: retired Additional occupation/education comments: [employer] Gender identity (if verbalized by the patient): Male Spiritual care concerns: No Meds Home Medications and Allergies Home Medications ?Medication ?Instructions ?Recorded ?Confirmed ?Type budesonide 160 mcg-glycopyr 9 2 inh inhalation BID #10.7 grams 02/17/25 09/06/25 Rx mcg-formot 4.8 mcg/actuation HFA inhaler (Breztri Aerosphere) ascorbic acid (vitamin C) 500 mg 500 mg PO DAILY Wounds 07/27/25 09/06/25 History capsule,extended release clobetasol 0.05 % topical cream 1 applic topical BID rash 07/27/25 09/06/25 History collagenase clostridium histo. 250 1 applic topical DAILY 07/27/25 09/06/25 History unit/gram topical ointment (Santyl) geriatric multivitamin-min 1 cap PO DAILY Wounds 07/27/25 09/06/25 History ipratropium 0.5 mg-albuterol 3 mg 3 ml inhalation Q6H PRN copd 07/27/25 09/06/25 History (2.5 mg base)/3 mL nebulization soln montelukast 10 mg tablet 10 mg PO HS 07/27/25 09/06/25 History (Singulair) oxycodone 5 mg tablet 5 mg PO Q6H PRN pain 07/27/25 09/06/25 History rivaroxaban 10 mg tablet (Xarelto) 10 mg PO DAILY 07/27/25 09/06/25 History bisacodyl 10 mg rectal suppository 10 mg RECTAL QAM PRN Constipation 08/11/25 09/06/25 Rx #12 ea sennosides 8.6 mg-docusate sodium 1 tab-cap PO HS #30 tabs 08/11/25 09/06/25 Rx 50 mg tablet (Senokot-S) interferon beta-1a 30 mcg/0.5 mL 30 mcg IM WEEKLY 09/06/25 09/06/25 History intramuscular pen injector (Avonex) magnesium citrate (Citroma oral 296 ml PO DAILY PRN constipation 09/06/25 09/06/25 History solution) magnesium hydroxide 400 mg/5 mL 30 ml PO DAILY PRN constipation 09/06/25 09/06/25 History oral suspension (Milk of Magnesia) sodium phosphates 19 gram-7 118 ml RECTAL DAILY PRN 09/06/25 09/06/25 History gram/118 mL enema (Fleet Enema) constipation Allergies Allergy/AdvReac Type Severity Reaction Status Date / Time No Known Allergies Allergy Verified 09/06/25 17:48 Vital Signs Vital Signs - 24 hr 09/06/25 11:54 09/06/25 12:00 09/06/25 13:51 Temperature 37.3 C 37.4 C 38.6 C H Pulse Rate 135 H 135 H Respiratory Rate 26 H 23 H Blood Pressure 89/62 L 89/62 L Pulse Oximetry 96 97 Oxygen Delivery Room Air Oxygen Flow Rate Fraction of Inspired Oxygen 09/06/25 13:56 09/06/25 14:05 09/06/25 14:11 Temperature 38.6 C H 38.6 C H 38.6 C H Pulse Rate 135 H 137 H 137 H Respiratory Rate 23 H 25 H 25 H Blood Pressure 116/68 102/64 102/64 Pulse Oximetry 96 96 96 Oxygen Delivery Oxygen Flow Rate Fraction of Inspired Oxygen 09/06/25 15:14 09/06/25 17:17 09/06/25 17:29 Temperature 38.0 C H Pulse Rate 125 H 130 H 134 H Respiratory Rate 23 H 23 H 27 H Blood Pressure 101/63 73/68 L Pulse Oximetry 97 96 89 L Oxygen Delivery Oxygen Flow Rate Fraction of Inspired Oxygen 09/06/25 17:30 09/06/25 17:31 09/06/25 17:45 Temperature Pulse Rate 131 H 134 H 133 H Respiratory Rate 27 H 25 H 25 H Blood Pressure 149/91 H Pulse Oximetry 93 93 95 Oxygen Delivery Oxygen Flow Rate Fraction of Inspired Oxygen 09/06/25 17:46 09/06/25 18:00 09/06/25 18:00 Temperature Pulse Rate 132 H 127 H 135 H Respiratory Rate 24 H 25 H Blood Pressure 133/111 H Pulse Oximetry 96 94 Oxygen Delivery Oxygen Flow Rate Fraction of Inspired Oxygen 09/06/25 18:02 09/06/25 18:15 09/06/25 18:17 Temperature Pulse Rate 134 H 127 H 128 H Respiratory Rate 23 H 22 H 22 H Blood Pressure 130/114 H 81/54 L Pulse Oximetry 97 96 96 Oxygen Delivery Oxygen Flow Rate Fraction of Inspired Oxygen 09/06/25 18:20 09/06/25 18:25 09/06/25 18:28 Temperature Pulse Rate 129 H 130 H 130 H Respiratory Rate 24 H 27 H 24 H Blood Pressure 83/60 L 78/55 L 126/65 Pulse Oximetry 96 Oxygen Delivery Oxygen Flow Rate Fraction of Inspired Oxygen 09/06/25 18:30 09/06/25 18:31 09/06/25 18:45 Temperature Pulse Rate 125 H 128 H 124 H Respiratory Rate 23 H 25 H 24 H Blood Pressure 142/104 H Pulse Oximetry 67 L Oxygen Delivery Oxygen Flow Rate Fraction of Inspired Oxygen 09/06/25 18:46 09/06/25 19:00 09/06/25 19:02 Temperature Pulse Rate 131 H 124 H 124 H Respiratory Rate 16 25 H 22 H Blood Pressure 145/133 H 104/70 Pulse Oximetry Oxygen Delivery Oxygen Flow Rate Fraction of Inspired Oxygen 09/06/25 19:15 09/06/25 19:16 09/06/25 20:00 Temperature 37.4 C Pulse Rate 122 H 121 H 123 H Respiratory Rate 25 H 27 H 29 H Blood Pressure 95/83 L 142/68 H Pulse Oximetry 100 Oxygen Delivery Oxygen Flow Rate Fraction of Inspired Oxygen 09/06/25 20:00 09/06/25 20:00 09/06/25 20:20 Temperature Pulse Rate 119 H 119 H Respiratory Rate 20 Blood Pressure Pulse Oximetry 100 94 Oxygen Delivery Nasal Cannula Nasal Cannula Oxygen Flow Rate 4 4 Fraction of Inspired Oxygen 36 09/06/25 21:00 09/06/25 22:00 09/06/25 22:00 Temperature 37.1 C Pulse Rate 113 H 104 H 101 H Respiratory Rate 20 20 Blood Pressure 121/74 94/44 L Pulse Oximetry 100 100 Oxygen Delivery Oxygen Flow Rate Fraction of Inspired Oxygen 09/06/25 22:57 09/06/25 23:00 09/07/25 00:00 Temperature Pulse Rate 97 98 110 H Respiratory Rate 20 20 Blood Pressure 97/57 L Pulse Oximetry 100 100 Oxygen Delivery Nasal Cannula Oxygen Flow Rate 4 Fraction of Inspired Oxygen 36 09/07/25 00:00 09/07/25 00:00 09/07/25 01:00 Temperature 37.4 C Pulse Rate 120 H 108 H Respiratory Rate 26 H 22 H Blood Pressure 121/67 98/62 L Pulse Oximetry 100 100 97 Oxygen Delivery Nasal Cannula Oxygen Flow Rate 3 Fraction of Inspired Oxygen 09/07/25 02:00 09/07/25 02:00 09/07/25 03:00 Temperature 36.3 C L Pulse Rate 108 H 108 H 100 Respiratory Rate 21 H 16 Blood Pressure 87/62 L 109/56 L Pulse Oximetry 99 100 Oxygen Delivery Oxygen Flow Rate Fraction of Inspired Oxygen 09/07/25 04:00 09/07/25 04:00 09/07/25 04:00 Temperature 37.3 C Pulse Rate 107 H 100 Respiratory Rate 20 Blood Pressure 123/58 L Pulse Oximetry 96 97 Oxygen Delivery Nasal Cannula Oxygen Flow Rate 2 Fraction of Inspired Oxygen 09/07/25 05:00 09/07/25 06:00 09/07/25 06:00 Temperature 37.1 C Pulse Rate 107 H 100 100 Respiratory Rate 10 L 19 Blood Pressure 142/85 H 115/65 Pulse Oximetry 96 99 Oxygen Delivery Oxygen Flow Rate Fraction of Inspired Oxygen 09/07/25 07:00 09/07/25 08:00 09/07/25 08:00 Temperature Pulse Rate 96 98 98 Respiratory Rate 19 22 H Blood Pressure 107/60 Pulse Oximetry 98 97 Oxygen Delivery Nasal Cannula Oxygen Flow Rate 2 Fraction of Inspired Oxygen 09/07/25 08:00 09/07/25 08:28 Temperature 36.7 C Pulse Rate 98 98 Respiratory Rate 22 H 20 Blood Pressure 112/62 Pulse Oximetry 97 100 Oxygen Delivery Nasal Cannula Oxygen Flow Rate 2 Fraction of Inspired Oxygen Exam Narrative: General: Frail old male who is laying in bed awake but confused her in no distress Lungs/Chest: Trachea central Clear BS B/L, No crackles or wheezing. Cardiac: RRR. Normal S1 S2. No murmurs Circulation: Pedal pulses are intact and symmetrical. Abdomen: Normal bowel sounds.. Soft. NT. ND. Extremities: No clubbing, cyanosis or edema. Warm : Mondragon in place with pink urine with CBI Neurologic: He does not follow commands, but he moves all his 4 extremities. PERRL mumbles on asking questions Skin: Multiple skin wounds in various stages Results Labs 09/07/25 05:32 09/07/25 05:32 Labs: Impressions Chest X-Ray 09/06/25 12:50 Impression: No acute cardiopulmonary abnormality. Chest/Abdomen/Pelvis CTA 09/06/25 14:07 IMPRESSION: 1. Filling defect right upper and middle lobe segmental and subsegmental pulmonary artery consistent with pulmonary embolism, small thrombus burden. 2: Interval development of extensive mural thickening and enhancement within the bladder wall, consistent with cystitis. No evidence for bladder fistula. Mondragon catheter present. 3: Extensive subcutaneous edema with small volume of ascites, consistent with anasarca. Dr. Tariq Rivero discussed with Dr. Hector Pritchard MD at 09/06/2025 14:17 OPTOMECHANICAL ENGINEER. Renal Ultrasound 09/06/25 21:28 IMPRESSION: There is a Mondragon catheter within the bladder. Left renal cyst measures 2 cm. Short CBC 09/06/25 09/06/25 09/06/25 Range/Units 13:23 15:36 20:37 WBC 36.5 H 44.1 H (4.5-10.0) K/mm3 Hgb 11.6 L 14.4 Cancelled (14.0-18.0) g/dL Hct 38.2 L 46.9 (42.0-52.0) % Plt Count 325 (150-375) k/mm3 09/06/25 09/06/25 09/07/25 Range/Units 20:37 20:37 05:32 WBC 34.1 H (4.5-10.0) K/mm3 Hgb 13.2 L 11.4 L (14.0-18.0) g/dL Hct Cancelled 41.0 L 36.1 L (42.0-52.0) % Plt Count 242 198 (150-375) k/mm3 BMP 09/06/25 09/06/25 09/07/25 13:23 14:37 05:32 Sodium 140 143 Potassium 4.2 3.4 Chloride 107 110 H Carbon Dioxide 22 25 BUN 34 H D 36 H Creatinine 2.31 H 2.60 H 1.04 Glucose 147 H 114 H Calcium 7.9 L 8.5 Cardiac Enzymes 09/06/25 09/06/25 Range/Units 20:36 23:43 Total Creatine Kinase 173 H (55-170) U/L Troponin I 0.023 0.026 (0.000-0.034) ng/mL Liver Function 09/06/25 09/07/25 Range/Units 13:23 05:32 Total Bilirubin 0.5 0.7 (0.2-1.3) mg/dL AST 34 36 (17-59) U/L ALT 23 14 (6-50) U/L Alkaline Phosphatase 77 65 (38-126) U/L Albumin 3.0 L 3.3 L (3.5-5.1) g/dL Urine 09/07/25 Range/Units 08:06 Urine Color Light red H (Yellow) Urine Appearance Turbid H (Clear) Urine pH 5.5 (5.0-9.0) Ur Specific [place] 1.013 (1.001-1.035) Urine Protein 2+ H (Negative) mg/dL Urine Glucose (UA) Negative (Negative) mg/dL Quality VTE Prophylaxis VTE prophylaxis: mechanical ordered Hospitalist MIPS Advance Care Plan I have confirmed that the patient's Advanced Care Plan is present, code status is documented, or surrogate decision maker is listed in patient medical record.: Yes Medication Reconciliation I have utilized all available resources to obtain, update and review the patients current medications (includes all prescriptions, OTC, herbals, cannabis, and nutritional supplements).: Yes
[2025-09-07] MEDS: CEFEPIME 2 GM in SODIUM CHLORIDE 0.9% IV 50 ML 100 ML IVPB ×2 (08:54→20:56)
[2025-09-07] MEDS: FLUCONAZOLE 100 MG/NACL 50 ML 100 MG/50 ML BTL 50 MG IVPB (08:54)
--- NOTE | 2025-09-07 11:37 | PCSTNOTE ---
Please refer to the Bedside Swallow Evaluation in the EMR. Please note, silent aspiration cannot be ruled out at bedside. Pt is a 69 year old male who presents with a relevant past medical history of multiple sclerosis and COPD. He presents at the hospital from his care home due to notably altered mental status. Orders placed due to history of a neurogenic disorder. Pt with no known history of dysphagia and does not currently have PNA. RN agreeable to evaluation and stated that pt inconsistently follows commands. Upon Speech Language Pathologist (CABBAGE SALTER) entry, the pt with notable confusion (i.e. not answering questions appropriately and yelling frequently) and was fatigued. The pt required frequent cues from the CABBAGE SALTER to maintain alertness and was unable to consistently follow directives. An oral mechanism exam was attempted; however, limited due to pt inability to consistently follow commands and agitation. This oral mechanism exam was remarkable for pt being edentulous. Throughout minimal PO trials, it was observed that the pt had adequate labial and lingual range of motion. PO trials included ice chips x2 and thin liquids via teaspoon x3. Pt required cues to swallow presented ice chips and thin liquids x1. Pt with coughing x1 after the swallow was initiated of a thin liquid trial. This could indicate penetration and/or aspiration. However, pt presented with seemingly normal swallowsx2 of thin liquids via teaspoon. After teaspoon trials of thin liquids, PO trials were discontinued due to pt's notable fatigue and inability to maintain attention and alertness throughout the evaluation and in between PO trials. This greatly impacts the safety of his swallow and could put him at risk for aspiration. These findings were discussed with the RN and MD. Recommendations: - NPO; ice chips sparingly with RN supervision and only when alert - Repeat bedside swallow evaluation tomorrow (09/07) with increased attention and reduced fatigue. Not appropriate for a Modified Barium Swallow Study at this time.
[2025-09-07] MEDS: PERFLUTREN LIPID MICROSPHERES 1.5 ML VIAL DILUTED TO 10 ML TOTAL VOLUME IV PUSH (11:38)
--- NOTE | 2025-09-07 11:38 | IVDEFINITY ---
Prior to administration of IV Definity the patient was educated on the risks and benefits of the imaging enhancing agent including potential adverse side effects. The patient verbalized understanding. Allergies were verified. No exclusion criteria were identified and at least one of the following inclusion criteria were met: 1) physician request, 2) patient technically difficult to image (per the [place] [employer] guidelines of two or more segments not discernable within the apical view), or 3) questionable left ventricular function. ?
[2025-09-07] MEDS: MUPIROCIN 2% OINT 22 GM TUBE 1 APPLIC EACH NARE ×2 (13:09→20:57)
--- NOTE | 2025-09-07 14:45 | P.CONNEU_ITS ---
Assessment and Plan Assessment and plan (1) Multiple sclerosis: Code(s): G35 - Multiple sclerosis Status: Chronic Plan Ongoing history of demyelinating disease for which patient has been on treatment for long duration Avonex injection which in my opinion at this particular time be discontinued if he has any family member Weak hand contact them or if he has any power of regulatory attorney. Consult date: 09/07/25 HPI: Bashir Gruber Sr. is a 69 year old male Admitted to the hospital through the emergency room where she was brought by EMS from [facility] with information that there was a change in mental status and complained of pain patient has been receiving multiple medications as outlined particularly oxycodone 5mg q.6 hours p.r.n., rivaroxaban 10mg daily, interferons 30mcg IM weekly that is Avonex for the ongoing diagnosis of the multiple sclerosis,. It was documented in the ER that he also has had the metabolic encephalopathy, COPD, smoking pack years of 75, and on initial exam in the ER he was very ill appearing frail but not in acute distress was able to move all extremities and his vital signs were with pulse of 119 temperature of 99.3? and pulse ox of [address] scan has documented large sacral decubitus wound, chest x-ray is negative for any acute involvement and CTA of chest and abdomen and pelvic area has documented feeling defect in the right upper and middle lobe mental subsegmental pulmonary artery consistent with pulmonary embolism and a small thrombus burden along with extensive subcutaneous edema with small volume of ascites and anasarca, ultrasound the kidneys are with the left renal cysts measuring only 2cm, and venous Doppler study of the lower extremities is negative. echocardiogram has documented no significant abnormalities. Review of Systems 2 Review of Systems: All systems reviewed & are unremarkable except as noted in HPI and below [facility] Past Medical History Medical History Metabolic encephalopathy Secondary to infected decubitus ulcer, August 2025 Tobacco use COPD (chronic obstructive pulmonary disease) Multiple sclerosis BMI 22.0-22.9, adult Surgical History Surgical History History of hip surgery Right hip pinning June 2024 at [place] Hx of tonsillectomy Family History Family History Father Liver cancer Mother No problems noted. Sibling No problems noted. Social History Social History Smoking packs per day: 1.5 Smoking cigarettes per day: 30.0 Years smoked: 50 Smoking pack-years: 75.00 Smoking status: Unknown if ever smoked Second hand tobacco smoke exposure: Yes Alcohol intake: never Substance use: never Substance use type: unknown Do You Feel Safe in your Home?: Yes Lack of Transportation: No Lack of Food: Never True Current Housing: I Have Housing Concerned About Future Housing: No Difficulty Paying Gas/Electric Bills: No Difficulty Paying for Meds: No Currently Unemployed: No Education: High School Diploma/GED Difficulty w/ Childcare or Family Care: No Living arrangements: alone Occupation/Education: retired Additional occupation/education comments: [employer] Gender identity (if verbalized by the patient): Male Spiritual care concerns: No Meds Home Medications and Allergies Home Medications ?Medication ?Instructions ?Recorded ?Confirmed ?Type budesonide 160 mcg-glycopyr 9 2 inh inhalation BID #10 .7 grams 02/17/25 09/06/25 Rx mcg-formot 4.8 mcg/actuation HFA inhaler (Breztri Aerosphere) ascorbic acid (vitamin C) 500 mg 500 mg PO DAILY Wound s 07/27/25 09/06/25 History capsule,extended release clobetasol 0.05 % topical cream 1 applic topical BID r toney 07/27/25 09/06/25 History collagenase clostridium histo. 250 1 applic topical DA LETICIA 07/27/25 09/06/25 History unit/gram topical ointment (Santyl) geriatric multivitamin-min 1 cap PO DAILY Wounds 07/2709/06/25 History ipratropium 0.5 mg-albuterol 3 mg 3 ml inhalation Q6H PRN copd 07/27/25 09/06/25 History (2.5 mg base)/3 mL nebulization soln montelukast 10 mg tablet 10 mg PO HS 07/27/25 5 History (Singulair) oxycodone 5 mg tablet 5 mg PO Q6H PRN pain 5 09/06/25 History rivaroxaban 10 mg tablet (Xarelto) 10 mg PO DAILY 07/0509/06/25 History bisacodyl 10 mg rectal suppository 10 mg RECTAL QAM W[place] N Constipation 08/11/25 09/06/25 Rx #12 ea sennosides 8.6 mg-docusate sodium 1 tab-cap PO HS #30 tabs 08/11/25 09/06/25 Rx 50 mg tablet (Senokot-S) interferon beta-1a 30 mcg/0.5 mL 30 mcg IM WEEKLY 02/2509/06/25 History intramuscular pen injector (Avonex) magnesium citrate (Citroma oral 296 ml PO DAILY PRN co nstipation 09/06/25 09/06/25 History solution) magnesium hydroxide 400 mg/5 mL 30 ml PO DAILY PRN con stipation 09/06/25 09/06/25 History oral suspension (Milk of Magnesia) sodium phosphates 19 gram-7 118 ml RECTAL DAILY PRN 09/06/25 History gram/118 mL enema (Fleet Enema) constipation Allergies Allergy/AdvReac Type Severity Reaction Status Date / Time No Known Allergies Allergy Verified 09/06/25 17:48 Vital Signs Vital Signs - 24 hr 09/06/25 15:14 09/06/25 17:17 09/06/25 17:29 Temperature 38.0 C H Pulse Rate 125 H 130 H 134 H Respiratory Rate 23 H 23 H 27 H Blood Pressure 101/63 73/68 L Pulse Oximetry 97 96 89 L Oxygen Delivery Oxygen Flow Rate Fraction of Inspired Oxygen 09/06/25 17:30 09/06/25 17:31 09/06/25 17:45 Temperature Pulse Rate 131 H 134 H 133 H Respiratory Rate 27 H 25 H 25 H Blood Pressure 149/91 H Pulse Oximetry 93 93 95 Oxygen Delivery Oxygen Flow Rate Fraction of Inspired Oxygen 09/06/25 17:46 09/06/25 18:00 09/06/25 18:00 Temperature Pulse Rate 132 H 127 H 135 H Respiratory Rate 24 H 25 H Blood Pressure 133/111 H Pulse Oximetry 96 94 Oxygen Delivery Oxygen Flow Rate Fraction of Inspired Oxygen 09/06/25 18:02 09/06/25 18:15 09/06/25 18:17 Temperature Pulse Rate 134 H 127 H 128 H Respiratory Rate 23 H 22 H 22 H Blood Pressure 130/114 H 81/54 L Pulse Oximetry 97 96 96 Oxygen Delivery Oxygen Flow Rate Fraction of Inspired Oxygen 09/06/25 18:20 09/06/25 18:25 09/06/25 18:28 Temperature Pulse Rate 129 H 130 H 130 H Respiratory Rate 24 H 27 H 24 H Blood Pressure 83/60 L 78/55 L 126/65 Pulse Oximetry 96 Oxygen Delivery Oxygen Flow Rate Fraction of Inspired Oxygen 09/06/25 18:30 09/06/25 18:31 09/06/25 18:45 Temperature Pulse Rate 125 H 128 H 124 H Respiratory Rate 23 H 25 H 24 H Blood Pressure 142/104 H Pulse Oximetry 67 L Oxygen Delivery Oxygen Flow Rate Fraction of Inspired Oxygen 09/06/25 18:46 09/06/25 19:00 09/06/25 19:02 Temperature Pulse Rate 131 H 124 H 124 H Respiratory Rate 16 25 H 22 H Blood Pressure 145/133 H 104/70 Pulse Oximetry Oxygen Delivery Oxygen Flow Rate Fraction of Inspired Oxygen 09/06/25 19:15 09/06/25 19:16 09/06/25 20:00 Temperature 37.4 C Pulse Rate 122 H 121 H 123 H Respiratory Rate 25 H 27 H 29 H Blood Pressure 95/83 L 142/68 H Pulse Oximetry 100 Oxygen Delivery Oxygen Flow Rate Fraction of Inspired Oxygen 09/06/25 20:00 09/06/25 20:00 09/06/25 20:20 Temperature Pulse Rate 119 H 119 H Respiratory Rate 20 Blood Pressure Pulse Oximetry 100 94 Oxygen Delivery Nasal Cannula Nasal Cannula Oxygen Flow Rate 4 4 Fraction of Inspired Oxygen 36 09/06/25 21:00 09/06/25 22:00 09/06/25 22:00 Temperature 37.1 C Pulse Rate 113 H 104 H 101 H Respiratory Rate 20 20 Blood Pressure 121/74 94/44 L Pulse Oximetry 100 100 Oxygen Delivery Oxygen Flow Rate Fraction of Inspired Oxygen 09/06/25 22:57 09/06/25 23:00 09/07/25 00:00 Temperature Pulse Rate 97 98 110 H Respiratory Rate 20 20 Blood Pressure 97/57 L Pulse Oximetry 100 100 Oxygen Delivery Nasal Cannula Oxygen Flow Rate 4 Fraction of Inspired Oxygen 36 09/07/25 00:00 09/07/25 00:00 09/07/25 01:00 Temperature 37.4 C Pulse Rate 120 H 108 H Respiratory Rate 26 H 22 H Blood Pressure 121/67 98/62 L Pulse Oximetry 100 100 97 Oxygen Delivery Nasal Cannula Oxygen Flow Rate 3 Fraction of Inspired Oxygen 09/07/25 02:00 09/07/25 02:00 09/07/25 03:00 Temperature 36.3 C L Pulse Rate 108 H 108 H 100 Respiratory Rate 21 H 16 Blood Pressure 87/62 L 109/56 L Pulse Oximetry 99 100 Oxygen Delivery Oxygen Flow Rate Fraction of Inspired Oxygen 09/07/25 04:00 09/07/25 04:00 09/07/25 04:00 Temperature 37.3 C Pulse Rate 107 H 100 Respiratory Rate 20 Blood Pressure 123/58 L Pulse Oximetry 96 97 Oxygen Delivery Nasal Cannula Oxygen Flow Rate 2 Fraction of Inspired Oxygen 09/07/25 05:00 09/07/25 06:00 09/07/25 06:00 Temperature 37.1 C Pulse Rate 107 H 100 100 Respiratory Rate 10 L 19 Blood Pressure 142/85 H 115/65 Pulse Oximetry 96 99 Oxygen Delivery Oxygen Flow Rate Fraction of Inspired Oxygen 09/07/25 07:00 09/07/25 08:00 09/07/25 08:00 Temperature Pulse Rate 96 98 98 Respiratory Rate 19 22 H Blood Pressure 107/60 Pulse Oximetry 98 97 Oxygen Delivery Nasal Cannula Oxygen Flow Rate 2 Fraction of Inspired Oxygen 09/07/25 08:00 09/07/25 08:28 09/07/25 09:00 Temperature 36.7 C 36.7 C Pulse Rate 98 98 96 Respiratory Rate 22 H 20 24 H Blood Pressure 112/62 116/60 Pulse Oximetry 97 100 96 Oxygen Delivery Nasal Cannula Oxygen Flow Rate 2 Fraction of Inspired Oxygen 09/07/25 10:00 09/07/25 10:00 09/07/25 11:00 Temperature 36.8 C 36.8 C Pulse Rate 96 101 H 93 Respiratory Rate 25 H 22 H Blood Pressure 115/56 L 121/63 Pulse Oximetry 100 99 Oxygen Delivery Oxygen Flow Rate Fraction of Inspired Oxygen 09/07/25 12:00 09/07/25 12:00 09/07/25 12:00 Temperature 36.9 C Pulse Rate 93 93 86 Respiratory Rate 22 H 20 Blood Pressure 115/56 L Pulse Oximetry 99 97 Oxygen Delivery Nasal Cannula Oxygen Flow Rate 2 Fraction of Inspired Oxygen 36 09/07/25 13:00 Temperature Pulse Rate 93 Respiratory Rate 20 Blood Pressure 107/58 L Pulse Oximetry 98 Oxygen Delivery Oxygen Flow Rate Fraction of Inspired Oxygen Exam 2 Narrative: At this particular time patient is not responding to verbal stimuli head normocephalic with no bruit neck supple with no meningeal signs, heart regular, lungs clear with occasional rhonchi, abdomen is soft nontender, neurologically he is unresponsive to verbal commands, pupils sluggish no extraocular movements noted and he did not follow the verbal commands to follow along, facial grimace is symmetrical but poor tongue in the oral cavity with no fasciculation motor examination revealed him to have generalized wasting with sluggish reflexes and upgoing plantar responses cerebellar functions could not be checked. Results Labs 09/07/25 05:32 09/07/25 05:32 Labs: Short CBC 09/06/25 09/06/25 09/06/25 Range/Units 15:36 20:37 20:37 WBC 44.1 H (4.5-10.0) K/mm3 Hgb 14.4 Cancelled 13.2 L (14.0-18.0) g/dL Hct 46.9 Cancelled (42.0-52.0) % Plt Count (150-375) k/mm3 09/06/25 09/07/25 Range/Units 20:37 05:32 WBC 34.1 H (4.5-10.0) K/mm3 Hgb 11.4 L (14.0-18.0) g/dL Hct 41.0 L 36.1 L (42.0-52.0) % Plt Count 242 198 (150-375) k/mm3 BMP 09/07/25 05:32 Sodium 143 Potassium 3.4 Chloride 110 H Carbon Dioxide 25 BUN 36 H Creatinine 1.04 Glucose 114 H Calcium 8.5 Cardiac Enzymes 09/06/25 09/06/25 Range/Units 20:36 23:43 Total Creatine Kinase 173 H (55-170) U/L Troponin I 0.023 0.026 (0.000-0.034) ng/mL Liver Function 09/07/25 Range/Units 05:32 Total Bilirubin 0.7 (0.2-1.3) mg/dL AST 36 (17-59) U/L ALT 14 (6-50) U/L Alkaline Phosphatase 65 (38-126) U/L Albumin 3.3 L (3.5-5.1) g/dL Urine 09/07/25 Range/Units 08:06 Urine Color Light red H (Yellow) Urine Appearance Turbid H (Clear) Urine pH 5.5 (5.0-9.0) Ur Specific [place] 1.013 (1.001-1.035) Urine Protein 2+ H (Negative) mg/dL Urine Glucose (UA) Negative (Negative) mg/dL
[2025-09-07 15:27] LABS: Hematocrit 29.3 % (42.0-52.0); Hemoglobin 9.3 g/dL (14.0-18.0); Mean Corpuscular HGB Conc 31.7 g/dl (32-36); Mean Corpuscular Hemoglobin 29.2 pg (26-34); Mean Corpuscular Volume 92.1 fl (80-100); Platelet Count Result 150 k/mm3 (150-375); Red Blood Count 3.18 M/mm3 (4.6-6.20); White Blood Count 27.1 K/mm3 (4.5-10.0)
[2025-09-07] MEDS: VANCOMYCIN HCL 1,000 MG in SODIUM CHLORIDE 0.9% IV 250 ML 250 MG IVPB (17:11)
[2025-09-07] MEDS: CENTRAL LINE FLUSH 10 ML IV PUSH ×2 (17:12→20:57)
--- NOTE | 2025-09-07 17:26 | P.PNIM_ITS ---
Progress Note: A&P Assessment and Plan (1) Septic shock: Code(s): A41.9 - Sepsis, unspecified organism; R65.21 - Severe sepsis with septic shock Status: Acute Assessment and Plan: Sepsis secondary to UTI. Uterine present with significant hematuria, which appears to be clearing up. With history of Nehal UTI. Blood and urine cultures Empiric vancomycin cefepime and fluconazole Patient overall volume overloaded. Will hold further IV fluids and monitor (2) Pulmonary embolism: Code(s): I26.99 - Other pulmonary embolism without acute cor pulmonale Status: Acute Assessment and Plan: CTA confirmed PE. In light of significant hematuria anticoagulation will be held. Depending on how he does he may need a tPA candidate for AA anticoagulation and may need IVC filter. Will wait another 24 hours to see if urine clears and will start heparin drip if hematuria resolves. Echo: No LA thrombus Venous doppler: negative for DVT (3) CHELSEA (acute kidney injury): Code(s): N17.9 - Acute kidney failure, unspecified Status: Acute Assessment and Plan: Secondary to sepsis hypotension and hypovolemia Renal function improved with IV fluids Creatinine now normalized Monitor urine output electrolytes and creatinine (4) Acute hemorrhagic cystitis: Code(s): N30.01 - Acute cystitis with hematuria Status: Acute Assessment and Plan: Associated with UTI Urology has been consulted-deferring anticoagulation to hospitalist team. We will assess for risks and benefits and evaluate for hematuria in the morning, start anticoagulation for PE if hemoglobin remains stable and hematuria continues to clear (5) COPD (chronic obstructive pulmonary disease): Qualifiers: COPD type: unspecified COPD Qualified Code(s): J44.9 - Chronic obstructive pulmonary disease, unspecified Code(s): J44.9 - Chronic obstructive pulmonary disease, unspecified Status: Chronic Assessment and Plan: Bronchodilators p.r.n. Subjective Date/time seen: 09/07/25 17:26 Interval history: 69 y/o M with PMH of multiple sclerosis, COPD, bedbound, and decubitus ulcer presents here with altered mental status. The patient presents here from a local retirement on 09/06 for further evaluation of altered mental status. HPI obtained through chart review, EMS report, ED provider report, and family report as the patient is altered. Per EMS, they were not provided with much information about the patient beyond that he was more altered than usual. Per chart review, the patient was recently admitted here from 07/26/2025 to 08/11/2025 for altered mental status, sepsis (UTI and/or decubitus ulcer), decub itus ulcer to the sacrum, left heel, and right lateral foot. He underwent a sharp excisional debridement of his stage IV sacral decubitus ulcer on 07/27/2025. During his stay he had acute respiratory distress which was felt to be secondary to a CHF exacerbation for which he was gently diuresed, echo showed grade 1 diastolic dysfunction with a preserved EF. Patient's altered mental status was contributed to metabolic encephalopathy, may have been exacerbated by a B12/vitamin-D deficiency. Patient also developed a postop ileus for which he was treated with MiraLax and Senokot. Patient was also evaluated by Infectious Disease due to his urine culture growing Nehal orthopsilosis, however the did not feel it with pathogenic at that time. Initial VS at presentation: 99.2? F (now 100.4? F), HR 135, RR 26, 89/62, and 96% on RA. ED workup showed: WBC 36.5, initial hemoglobin 11.6 (11.9 on 09/03), normal coags, creatinine 2.31 and GFR 28 (previously 0.5 and GFR >60 on 09/03), lactic 5.3, calcium 7.9 in the setting of an albumin of 3.0, CRP 6.3. Mondragon replaced and patient had annette blood, so unable to obtain UA at time of admission. CXR showed no acute cardiopulmonary abnormality. CTA of the chest/abdomen/pelvis showed a filling defect of the right upper and middle lobe segmental and subsegmental pulmonary artery consistent with pulmonary embolism with small thrombus burden, interval development of extensive mural thickening and enhancement within the bladder wall consistent with cystitis with no evidence of bladder fistula and Mondragon catheter present, extensive subcutaneous edema with small volume of ascites consistent with anasarca. Review of Systems Review of Systems: All systems reviewed & are unremarkable except as noted in HPI and below Exam Narrative: General: awake but confused in no distress Lungs/Chest: Trachea central Clear BS B/L, No crackles or wheezing. Cardiac: RRR. Normal S1 S2. No murmurs Circulation: Pedal pulses are intact and symmetrical. Abdomen: Normal bowel sounds.. Soft. NT. ND. Extremities: No clubbing, cyanosis or edema. Warm : Mondragon in place with pink urine with CBI Neurologic: He does not follow commands, but he moves all his 4 extremities. PERRL mumbles on asking questions Skin: Multiple skin wounds in various stages Objective Data Vital Signs Vital Signs: Vital Signs - 24 hr 09/06/25 17:29 09/06/25 17:30 09/06/25 17:31 Temperature Pulse Rate 134 H 131 H 134 H Respiratory Rate 27 H 27 H 25 H Blood Pressure 149/91 H Pulse Oximetry 89 L 93 93 Oxygen Delivery Oxygen Flow Rate Fraction of Inspired Oxygen 09/06/25 17:45 09/06/25 17:46 09/06/25 18:00 Temperature Pulse Rate 133 H 132 H 127 H Respiratory Rate 25 H 24 H Blood Pressure 133/111 H Pulse Oximetry 95 96 Oxygen Delivery Oxygen Flow Rate Fraction of Inspired Oxygen 09/06/25 18:00 09/06/25 18:02 09/06/25 18:15 Temperature Pulse Rate 135 H 134 H 127 H Respiratory Rate 25 H 23 H 22 H Blood Pressure 130/114 H Pulse Oximetry 94 97 96 Oxygen Delivery Oxygen Flow Rate Fraction of Inspired Oxygen 09/06/25 18:17 09/06/25 18:20 09/06/25 18:25 Temperature Pulse Rate 128 H 129 H 130 H Respiratory Rate 22 H 24 H 27 H Blood Pressure 81/54 L 83/60 L 78/55 L Pulse Oximetry 96 96 Oxygen Delivery Oxygen Flow Rate Fraction of Inspired Oxygen 09/06/25 18:28 09/06/25 18:30 09/06/25 18:31 Temperature Pulse Rate 130 H 125 H 128 H Respiratory Rate 24 H 23 H 25 H Blood Pressure 126/65 142/104 H Pulse Oximetry 67 L Oxygen Delivery Oxygen Flow Rate Fraction of Inspired Oxygen 09/06/25 18:45 09/06/25 18:46 09/06/25 19:00 Temperature Pulse Rate 124 H 131 H 124 H Respiratory Rate 24 H 16 25 H Blood Pressure 145/133 H Pulse Oximetry Oxygen Delivery Oxygen Flow Rate Fraction of Inspired Oxygen 09/06/25 19:02 09/06/25 19:15 09/06/25 19:16 Temperature Pulse Rate 124 H 122 H 121 H Respiratory Rate 22 H 25 H 27 H Blood Pressure 104/70 95/83 L Pulse Oximetry Oxygen Delivery Oxygen Flow Rate Fraction of Inspired Oxygen 09/06/25 20:00 09/06/25 20:00 09/06/25 20:00 Temperature 99.3 F Pulse Rate 123 H 119 H Respiratory Rate 29 H Blood Pressure 142/68 H Pulse Oximetry 100 100 Oxygen Delivery Nasal Cannula Oxygen Flow Rate 4 Fraction of Inspired Oxygen 09/06/25 20:20 09/06/25 21:00 09/06/25 22:00 Temperature 98.7 F Pulse Rate 119 H 113 H 104 H Respiratory Rate 20 20 20 Blood Pressure 121/74 94/44 L Pulse Oximetry 94 100 100 Oxygen Delivery Nasal Cannula Oxygen Flow Rate 4 Fraction of Inspired Oxygen 36 09/06/25 22:00 09/06/25 22:57 09/06/25 23:00 Temperature Pulse Rate 101 H 97 98 Respiratory Rate 20 20 Blood Pressure 97/57 L Pulse Oximetry 100 100 Oxygen Delivery Nasal Cannula Oxygen Flow Rate 4 Fraction of Inspired Oxygen 36 09/07/25 00:00 09/07/25 00:00 09/07/25 00:00 Temperature 99.3 F Pulse Rate 110 H 120 H Respiratory Rate 26 H Blood Pressure 121/67 Pulse Oximetry 100 100 Oxygen Delivery Nasal Cannula Oxygen Flow Rate 3 Fraction of Inspired Oxygen 09/07/25 01:00 09/07/25 02:00 09/07/25 02:00 Temperature 97.3 F L Pulse Rate 108 H 108 H 108 H Respiratory Rate 22 H 21 H Blood Pressure 98/62 L 87/62 L Pulse Oximetry 97 99 Oxygen Delivery Oxygen Flow Rate Fraction of Inspired Oxygen 09/07/25 03:00 09/07/25 04:00 09/07/25 04:00 Temperature 99.1 F Pulse Rate 100 107 H Respiratory Rate 16 20 Blood Pressure 109/56 L 123/58 L Pulse Oximetry 100 96 97 Oxygen Delivery Nasal Cannula Oxygen Flow Rate 2 Fraction of Inspired Oxygen 09/07/25 04:00 09/07/25 05:00 09/07/25 06:00 Temperature Pulse Rate 100 107 H 100 Respiratory Rate 10 L Blood Pressure 142/85 H Pulse Oximetry 96 Oxygen Delivery Oxygen Flow Rate Fraction of Inspired Oxygen 09/07/25 06:00 09/07/25 07:00 09/07/25 08:00 Temperature 98.7 F Pulse Rate 100 96 98 Respiratory Rate 19 19 22 H Blood Pressure 115/65 107/60 Pulse Oximetry 99 98 97 Oxygen Delivery Nasal Cannula Oxygen Flow Rate 2 Fraction of Inspired Oxygen 09/07/25 08:00 09/07/25 08:00 09/07/25 08:28 Temperature 98.1 F Pulse Rate 98 98 98 Respiratory Rate 22 H 20 Blood Pressure 112/62 Pulse Oximetry 97 100 Oxygen Delivery Nasal Cannula Oxygen Flow Rate 2 Fraction of Inspired Oxygen 09/07/25 09:00 09/07/25 10:00 09/07/25 10:00 Temperature 98.1 F 98.3 F Pulse Rate 96 96 101 H Respiratory Rate 24 H 25 H Blood Pressure 116/60 115/56 L Pulse Oximetry 96 100 Oxygen Delivery Oxygen Flow Rate Fraction of Inspired Oxygen 09/07/25 11:00 09/07/25 12:00 09/07/25 12:00 Temperature 98.3 F Pulse Rate 93 93 93 Respiratory Rate 22 H 22 H Blood Pressure 121/63 Pulse Oximetry 99 99 Oxygen Delivery Nasal Cannula Oxygen Flow Rate 2 Fraction of Inspired Oxygen 36 09/07/25 12:00 09/07/25 13:00 09/07/25 14:00 Temperature 98.5 F Pulse Rate 86 93 93 Respiratory Rate 20 20 Blood Pressure 115/56 L 107/58 L Pulse Oximetry 97 98 Oxygen Delivery Oxygen Flow Rate Fraction of Inspired Oxygen 09/07/25 16:00 09/07/25 16:00 09/07/25 16:00 Temperature 98.3 F Pulse Rate 86 86 86 Respiratory Rate 20 20 Blood Pressure 114/63 Pulse Oximetry 98 94 Oxygen Delivery Nasal Cannula Oxygen Flow Rate 2 Fraction of Inspired Oxygen 36 Intake/Output Intake/Output: Intake & Output 09/04/25 09/05/25 09/06/25 09/07/25 22:59 23:59 23:59 23:59 Intake Total 8200 3920 Output Total 9100 4425 Balance -900 -111 Meds/Results Medications: Active Medications Generic Name Dose Route Start Last Admin Trade Name Freq PRN Reason Stop Dose Admin Acetaminophen 650 mg 09/06/25 18:10 Acetaminophen 650 Mg Suppository RECTAL Q6H PRN Mild Pain (1-3) or Fever Albuterol/Ipratropium 3 ml 09/06/25 18:09 Ipratropium 0.5 Mg/Albuterol Sulfate 2.5 Mg (Base) Ampul.Neb 3 Ml INHALATION Q6HRT PRN copd Alteplase, Recombinant 2 mg 11/04/25 18:10 09/07/25 05:56 Alteplase 2 Mg Vial (Cathflo) IV PUSH 2 mg ONCE PRN Administration Line Occlusion Dextrose 12.5 gm 09/06/25 18:09 Dextrose 50% 25 Gm/50 Ml Syringe IV PUSH PRN PRN Hypoglycemia Protocol Glucagon 1 mg 09/06/25 18:09 Glucagon For Inj 1 Mg Vial IM PRN PRN Hypoglycemia Protocol Glucose 15 gm 09/06/25 18:09 Glucose Oral Gel 15 Gm Of Glucse In 37.5 Gm Tube PO PRN PRN Hypoglycemia Protocol Fluconazole/Dextrose 100 mg in 50 mls @ 50 mls/hr 09/07/25 09:00 09/07/25 08:54 Diflucan 100 Mg/Nacl 50 Ml IVPB 50 mls/hr DAILY MICAH Administration Dextrose 1,000 mls @ 100 mls/hr 09/06/25 18:09 Dextrose 5% 1,000 Ml IVPB PRN PRN Hypoglycemia Protocol Cefepime HCl 2 gm/ Sodium 50 mls @ 100 mls/hr 09/07/25 09:00 09/07/25 09:24 Chloride IVPB Infused Q12H MICAH Infusion Vancomycin HCl 1,000 mg/ 250 mls @ 250 mls/hr 09/07/25 17:00 09/07/25 17:11 Sodium Chloride IVPB 09/07/25 17:59 250 mls/hr ONCE ONE Administration Mupirocin 1 applic 09/07/25 09:00 09/07/25 13:09 Mupirocin 2% Oint 22 Gm Tube EACH NARE 09/11/25 21:01 1 applic Q12HR MICAH Administration Sodium Chloride 10 ml 09/07/25 14:00 09/07/25 17:12 Central Line Flush IV PUSH 10 ml Q8HR MICAH Administration Sodium Chloride 20 ml 09/07/25 10:44 Central Line Flush IV PUSH PRN PRN after blood draws Sodium Hypochlorite 1 applic 09/07/25 14:00 09/07/25 17:11 Sod Hypochlorite 1/4 Strength 473 Ml TOPICAL Not Given DAILY MICAH Vancomycin HCl 1 each 09/06/25 14:44 Vancomycin For Acute Kidney Injury IVPB PRN PRN Vancomycin Protocol Radiology Results: ITS Impressions Chest X-Ray 09/06/25 12:50 Impression: No acute cardiopulmonary abnormality. Chest/Abdomen/Pelvis CTA 09/06/25 14:07 IMPRESSION: 1. Filling defect right upper and middle lobe segmental and subsegmental pulmonary artery consistent with pulmonary embolism, small thrombus burden. 2: Interval development of extensive mural thickening and enhancement within the bladder wall, consistent with cystitis. No evidence for bladder fistula. Mondragon catheter present. 3: Extensive subcutaneous edema with small volume of ascites, consistent with anasarca. Dr. Tariq Rivero discussed with Dr. Hector Pritchard MD at 09/06/2025 14:17 [employer]. Renal Ultrasound 09/06/25 21:28 IMPRESSION: There is a Mondragon catheter within the bladder. Left renal cyst measures 2 cm. Venous Doppler Study 09/07/25 14:37 Impression: Negative for DVT. Labs Labs: Laboratory Results - last 24 hr 09/06/25 09/06/25 09/06/25 17:53 20:32 20:36 WBC RBC Hgb Hct MCV MCH MCHC RDW Plt Count MPV Sodium Potassium Chloride Carbon Dioxide Anion Gap BUN Creatinine Estim Creat Clear Calc Estimated GFR Glucose POC Capillary Glucose Lactic Acid 2.4 H Calcium Phosphorus Magnesium Total Bilirubin AST ALT Alkaline Phosphatase Total Creatine Kinase 173 H Troponin I 0.023 Total Protein Albumin Procalcitonin Urine Color Urine Appearance Urine pH Ur Specific [place] Urine Protein Urine Glucose (UA) Urine Ketones Ur Blood (Man) Urine Nitrate Urine Bilirubin Urine Urobilinogen Add Ur Microanalysis Leukocyte Esterase Rfl Urine RBC Urine WBC Urine WBC Clumps Ur Squamous Epith Cells Urine Bacteria Urine Casts U Random Total Protein Ur Random Sodium Ur Random Potassium Ur Random Urea Urine Creatinine Protein/Creat Ratio 2 Nasal MRSA (PCR) Detected A* Random Vancomycin 09/06/25 09/06/25 09/06/25 20:37 20:37 20:37 WBC 44.1 H RBC 4.50 L Hgb Cancelled 13.2 L Hct Cancelled 41.0 L MCV 91.1 MCH 29.3 MCHC 32.2 RDW 16.5 H Plt Count 242 MPV 10.5 H Sodium Potassium Chloride Carbon Dioxide Anion Gap BUN Creatinine Estim Creat Clear Calc Estimated GFR Glucose POC Capillary Glucose Lactic Acid Calcium Phosphorus Magnesium Total Bilirubin AST ALT Alkaline Phosphatase Total Creatine Kinase Troponin I Total Protein Albumin Procalcitonin 8.3 Urine Color Urine Appearance Urine pH Ur Specific [place] Urine Protein Urine Glucose (UA) Urine Ketones Ur Blood (Man) Urine Nitrate Urine Bilirubin Urine Urobilinogen Add Ur Microanalysis Leukocyte Esterase Rfl Urine RBC Urine WBC Urine WBC Clumps Ur Squamous Epith Cells Urine Bacteria Urine Casts U Random Total Protein Ur Random Sodium Ur Random Potassium Ur Random Urea Urine Creatinine Protein/Creat Ratio 2 Nasal MRSA (PCR) Random Vancomycin 09/06/25 09/07/25 09/07/25 23:43 00:08 05:32 WBC 34.1 H RBC 3.88 L Hgb 11.4 L Hct 36.1 L MCV 93.0 MCH 29.4 MCHC 31.6 L RDW 16.7 H Plt Count 198 MPV 10.8 H Sodium 143 Potassium 3.4 Chloride 110 H Carbon Dioxide 25 Anion Gap 8 BUN 36 H Creatinine 1.04 Estim Creat Clear Calc 40 Estimated GFR > 60 Glucose 114 H POC Capillary Glucose 101 Lactic Acid Calcium 8.5 Phosphorus 3.2 Magnesium 1.7 Total Bilirubin 0.7 AST 36 ALT 14 Alkaline Phosphatase 65 Total Creatine Kinase Troponin I 0.026 Total Protein 5.8 L Albumin 3.3 L Procalcitonin Urine Color Urine Appearance Urine pH Ur Specific [place] Urine Protein Urine Glucose (UA) Urine Ketones Ur Blood (Man) Urine Nitrate Urine Bilirubin Urine Urobilinogen Add Ur Microanalysis Leukocyte Esterase Rfl Urine RBC Urine WBC Urine WBC Clumps Ur Squamous Epith Cells Urine Bacteria Urine Casts U Random Total Protein Ur Random Sodium Ur Random Potassium Ur Random Urea Urine Creatinine Protein/Creat Ratio 2 Nasal MRSA (PCR) Random Vancomycin 09/07/25 09/07/25 09/07/25 08:06 08:11 08:11 WBC RBC Hgb Hct MCV MCH MCHC RDW Plt Count MPV Sodium Potassium Chloride Carbon Dioxide Anion Gap BUN Creatinine Estim Creat Clear Calc Estimated GFR Glucose POC Capillary Glucose Lactic Acid Calcium Phosphorus Magnesium Total Bilirubin AST ALT Alkaline Phosphatase Total Creatine Kinase Troponin I Total Protein Albumin Procalcitonin Urine Color Light red H Urine Appearance Turbid H Urine pH 5.5 Ur Specific [place] 1.013 Urine Protein 2+ H Urine Glucose (UA) Negative Urine Ketones Negative Ur Blood (Man) 3+ H Urine Nitrate Negative Urine Bilirubin Negative Urine Urobilinogen 0.2 Add Ur Microanalysis Reviewed Leukocyte Esterase Rfl 3+ H Urine RBC >100 H Urine WBC >100 H Urine WBC Clumps Present H Ur Squamous Epith Cells Occasional Urine Bacteria 1+ H Urine Casts 6-10 U Random Total Protein 104 Ur Random Sodium 97 Ur Random Potassium 26.7 Ur Random Urea 332 Urine Creatinine 22.8 22.3 Protein/Creat Ratio 2 4.56 H Nasal MRSA (PCR) Random Vancomycin 09/07/25 15:21 WBC 27.1 H RBC 3.18 L Hgb 9.3 L Hct 29.3 L MCV 92.1 MCH 29.2 MCHC 31.7 L RDW 16.8 H Plt Count 150 MPV 10.3 Sodium Potassium Chloride Carbon Dioxide Anion Gap BUN Creatinine Estim Creat Clear Calc Estimated GFR Glucose POC Capillary Glucose Lactic Acid Calcium Phosphorus Magnesium Total Bilirubin AST ALT Alkaline Phosphatase Total Creatine Kinase Troponin I Total Protein Albumin Procalcitonin Urine Color Urine Appearance Urine pH Ur Specific [place] Urine Protein Urine Glucose (UA) Urine Ketones Ur Blood (Man) Urine Nitrate Urine Bilirubin Urine Urobilinogen Add Ur Microanalysis Leukocyte Esterase Rfl Urine RBC Urine WBC Urine WBC Clumps Ur Squamous Epith Cells Urine Bacteria Urine Casts U Random Total Protein Ur Random Sodium Ur Random Potassium Ur Random Urea Urine Creatinine Protein/Creat Ratio 2 Nasal MRSA (PCR) Random Vancomycin 7.2 L Hospitalist MIPS Advance Care Plan I have confirmed that the patient's Advanced Care Plan is present, code status is documented, or surrogate decision maker is listed in patient medical record.: Yes Medication Reconciliation I have utilized all available resources to obtain, update and review the patients current medications (includes all prescriptions, OTC, herbals, cannabi s, and nutritional supplements).: Yes
--- NOTE | 2025-09-07 19:48 | P.PNUR_ITS ---
Progress Note: A&P Assessment and Plan (1) Gross hematuria: Code(s): R31.0 - Gross hematuria Status: Acute Assessment and Plan: - urine light pink. - CBI: continue to run to clear urine. then may titrate down - Trend Hgb, continues to drop and is 9.3 today - Cr wnl - Continue broad spectrum Abx - Urine culture pending. Culture driven antibiotics per primary service. - Pt with PE needing anticoagulation, however, continues to have significant gross hematuria. Defer to hospitalist team to determine risks vs benefits of AC use for known PEs. - Subjective Subjective Date/Time Seen: 09/07/25 19:48 Interval history: 69 y/o M with PMH of multiple sclerosis, COPD, bedbound, and decubitus ulcer presents here with altered mental status. The patient presents here from a local [facility] on 09/06 for further evaluation of altered mental status. HPI obtained through chart review, EMS report, ED provider report, and family report as the patient is altered. Per EMS, they were not provided with much information about the patient beyond that he was more altered than usual. Per chart review, the patient was recently admitted here from 07/26/2025 to 08/11/2025 for altered mental status, sepsis (UTI and/or decubitus ulcer), decubitus ulcer to the sacrum, left heel, and right lateral foot. He underwent a sharp excisional debridement of his stage IV sacral decubitus ulcer on 07/27/2025. During his stay he had acute respiratory distress which was felt to be secondary to a CHF exacerbation for which he was gently diuresed, echo showed grade 1 diastolic dysfunction with a preserved EF. Patient's altered mental status was contributed to metabolic encephalopathy, may have been exacerbated by a B12/vitamin-D deficiency. Patient also developed a postop ileus for which he was treated with MiraLax and Senokot. Patient was also evaluated by Infectious Disease due to his urine culture growing Nehal orthopsilosis, however the did not feel it with pathogenic at that time. Initial VS at presentation: 99.2? F (now 100.4? F), HR 135, RR 26, 89/62, and 96% on RA. ED workup showed: WBC 36.5, initial hemoglobin 11.6 (11.9 on 09/03), normal coags, creatinine 2.31 and GFR 28 (previously 0.5 and GFR >60 on 09/03), lactic 5.3, calcium 7.9 in the setting of an albumin of 3.0, CRP 6.3. Mondragon replaced and patient had annette blood, so unable to obtain UA at time of admission. CXR showed no acute cardiopulmonary abnormality. CTA of the chest/abdomen/pelvis showed a filling defect of the right upper and middle lobe segmental and subsegmental pulmonary artery consistent with pulmonary embolism with small thrombus burden, interval development of extensive mural thickening and enhancement within the bladder wall consistent with cystitis with no evidence of bladder fistula and Mondragon catheter present, extensive subcutaneous edema with small volume of ascites consistent with anasarca. 09/07/2025 Patient lying in bed. seems comfortable but wont respond other than open eyes but wont look at you. urine is pink today on cbi Review of Systems Review of Systems: ROS unobtainable: Yes unobtainable due to medical condition Exam Const: Other: Pt laying in bed, not responsive to questions HENMT: Mouth: Yes dry mucous membranes Eyes: General: appearance normal, both eyes and all related structures Resp: Effort & Inspection: normal respiratory effort Urinary Catheter: Urinary Catheter: patent and draining and urine pink Skin: Other: pale Psych: Speech and movement: No Normal speech and movement present Objective Data Vital Signs Vital Signs: Vital Signs - 24 hr 09/06/25 20:00 09/06/25 20:00 09/06/25 20:00 Temperature 99.3 F Pulse Rate 123 H 119 H Respiratory Rate 29 H Blood Pressure 142/68 H Pulse Oximetry 100 100 Oxygen Delivery Nasal Cannula Oxygen Flow Rate 4 Fraction of Inspired Oxygen 09/06/25 20:20 09/06/25 21:00 09/06/25 22:00 Temperature 98.7 F Pulse Rate 119 H 113 H 104 H Respiratory Rate 20 20 20 Blood Pressure 121/74 94/44 L Pulse Oximetry 94 100 100 Oxygen Delivery Nasal Cannula Oxygen Flow Rate 4 Fraction of Inspired Oxygen 36 09/06/25 22:00 09/06/25 22:57 09/06/25 23:00 Temperature Pulse Rate 101 H 97 98 Respiratory Rate 20 20 Blood Pressure 97/57 L Pulse Oximetry 100 100 Oxygen Delivery Nasal Cannula Oxygen Flow Rate 4 Fraction of Inspired Oxygen 36 09/07/25 00:00 09/07/25 00:00 09/07/25 00:00 Temperature 99.3 F Pulse Rate 110 H 120 H Respiratory Rate 26 H Blood Pressure 121/67 Pulse Oximetry 100 100 Oxygen Delivery Nasal Cannula Oxygen Flow Rate 3 Fraction of Inspired Oxygen 09/07/25 01:00 09/07/25 02:00 09/07/25 02:00 Temperature 97.3 F L Pulse Rate 108 H 108 H 108 H Respiratory Rate 22 H 21 H Blood Pressure 98/62 L 87/62 L Pulse Oximetry 97 99 Oxygen Delivery Oxygen Flow Rate Fraction of Inspired Oxygen 09/07/25 03:00 09/07/25 04:00 09/07/25 04:00 Temperature 99.1 F Pulse Rate 100 107 H Respiratory Rate 16 20 Blood Pressure 109/56 L 123/58 L Pulse Oximetry 100 96 97 Oxygen Delivery Nasal Cannula Oxygen Flow Rate 2 Fraction of Inspired Oxygen 09/07/25 04:00 09/07/25 05:00 09/07/25 06:00 Temperature Pulse Rate 100 107 H 100 Respiratory Rate 10 L Blood Pressure 142/85 H Pulse Oximetry 96 Oxygen Delivery Oxygen Flow Rate Fraction of Inspired Oxygen 09/07/25 06:00 09/07/25 07:00 09/07/25 08:00 Temperature 98.7 F Pulse Rate 100 96 98 Respiratory Rate 19 19 22 H Blood Pressure 115/65 107/60 Pulse Oximetry 99 98 97 Oxygen Delivery Nasal Cannula Oxygen Flow Rate 2 Fraction of Inspired Oxygen 09/07/25 08:00 09/07/25 08:00 09/07/25 08:28 Temperature 98.1 F Pulse Rate 98 98 98 Respiratory Rate 22 H 20 Blood Pressure 112/62 Pulse Oximetry 97 100 Oxygen Delivery Nasal Cannula Oxygen Flow Rate 2 Fraction of Inspired Oxygen 09/07/25 09:00 09/07/25 10:00 09/07/25 10:00 Temperature 98.1 F 98.3 F Pulse Rate 96 96 101 H Respiratory Rate 24 H 25 H Blood Pressure 116/60 115/56 L Pulse Oximetry 96 100 Oxygen Delivery Oxygen Flow Rate Fraction of Inspired Oxygen 09/07/25 11:00 09/07/25 12:00 09/07/25 12:00 Temperature 98.3 F Pulse Rate 93 93 93 Respiratory Rate 22 H 22 H Blood Pressure 121/63 Pulse Oximetry 99 99 Oxygen Delivery Nasal Cannula Oxygen Flow Rate 2 Fraction of Inspired Oxygen 36 09/07/25 12:00 09/07/25 13:00 09/07/25 14:00 Temperature 98.5 F Pulse Rate 86 93 93 Respiratory Rate 20 20 Blood Pressure 115/56 L 107/58 L Pulse Oximetry 97 98 Oxygen Delivery Oxygen Flow Rate Fraction of Inspired Oxygen 09/07/25 16:00 09/07/25 16:00 09/07/25 16:00 Temperature 98.3 F Pulse Rate 86 86 86 Respiratory Rate 20 20 Blood Pressure 114/63 Pulse Oximetry 98 94 Oxygen Delivery Nasal Cannula Oxygen Flow Rate 2 Fraction of Inspired Oxygen 36 09/07/25 18:00 Temperature Pulse Rate 86 Respiratory Rate Blood Pressure Pulse Oximetry Oxygen Delivery Oxygen Flow Rate Fraction of Inspired Oxygen Intake/Output Intake/Output: Intake & Output 09/04/25 09/05/25 09/06/25 09/07/25 22:59 23:59 23:59 23:59 Intake Total 8200 3920 Output Total 9100 4425 Balance -900 -635 Meds/Results Medications: Active Medications Generic Name Dose Route Start Last Admin Trade Name Freq PRN Reason Stop Dose Admin Acetaminophen 650 mg 09/06/25 18:10 Acetaminophen 650 Mg Suppository RECTAL Q6H PRN Mild Pain (1-3) or Fever Albuterol/Ipratropium 3 ml 09/06/25 18:09 Ipratropium 0.5 Mg/Albuterol Sulfate 2.5 Mg (Base) Ampul.Neb 3 Ml INHALATION Q6HRT PRN copd Alteplase, Recombinant 2 mg 09/06/25 18:10 09/07/25 05:56 Alteplase 2 Mg Vial (Cathflo) IV PUSH 2 mg ONCE PRN Administration Line Occlusion Dextrose 12.5 gm 09/06/25 18:09 Dextrose 50% 25 Gm/50 Ml Syringe IV PUSH PRN PRN Hypoglycemia Protocol Glucagon 1 mg 09/06/25 18:09 Glucagon For Inj 1 Mg Vial IM PRN PRN Hypoglycemia Protocol Glucose 15 gm 09/06/25 18:09 Glucose Oral Gel 15 Gm Of Glucse In 37.5 Gm Tube PO PRN PRN Hypoglycemia Protocol Fluconazole/Dextrose 100 mg in 50 mls @ 50 mls/hr 09/07/25 09:00 09/07/25 08:54 Diflucan 100 Mg/Nacl 50 Ml IVPB 50 mls/hr DAILY MICAH Administration Dextrose 1,000 mls @ 100 mls/hr 09/06/25 18:09 Dextrose 5% 1,000 Ml IVPB PRN PRN Hypoglycemia Protocol Cefepime HCl 2 gm/ Sodium 50 mls @ 100 mls/hr 09/07/25 09:00 09/07/25 09:24 Chloride IVPB Infused Q12H MICAH Infusion Mupirocin 1 applic 09/07/25 09:00 09/07/25 13:09 Mupirocin 2% Oint 22 Gm Tube EACH NARE 09/11/25 21:01 1 applic Q12HR MICAH Administration Sodium Chloride 10 ml 09/07/25 14:00 09/07/25 17:12 Central Line Flush IV PUSH 10 ml Q8HR MICAH Administration Sodium Chloride 20 ml 09/07/25 10:44 Central Line Flush IV PUSH PRN PRN after blood draws Sodium Hypochlorite 1 applic 09/07/25 14:00 09/07/25 17:11 Sod Hypochlorite 1/4 Strength 473 Ml TOPICAL Not Given DAILY MICAH Vancomycin HCl 1 each 09/06/25 14:44 Vancomycin For Acute Kidney Injury IVPB PRN PRN Vancomycin Protocol Radiology Results: ITS Impressions Chest X-Ray 09/06/25 12:50 Impression: No acute cardiopulmonary abnormality. Chest/Abdomen/Pelvis CTA 09/06/25 14:07 IMPRESSION: 1. Filling defect right upper and middle lobe segmental and subsegmental pulmonary artery consistent with pulmonary embolism, small thrombus burden. 2: Interval development of extensive mural thickening and enhancement within the bladder wall, consistent with cystitis. No evidence for bladder fistula. Mondragon catheter present. 3: Extensive subcutaneous edema with small volume of ascites, consistent with anasarca. Dr. Tariq Rivero discussed with Dr. Hector Pritchard MD at 09/06/2025 14:17 [employer]. Renal Ultrasound 09/06/25 21:28 IMPRESSION: There is a Mondragon catheter within the bladder. Left renal cyst measures 2 cm. Venous Doppler Study 09/07/25 14:37 Impression: Negative for DVT. Labs Labs: Laboratory Results - last 24 hr 09/06/25 09/06/25 09/06/25 20:32 20:36 20:37 WBC 44.1 H RBC 4.50 L Hgb Cancelled Hct MCV MCH MCHC RDW Plt Count MPV Sodium Potassium Chloride Carbon Dioxide Anion Gap BUN Creatinine Estim Creat Clear Calc Estimated GFR Glucose POC Capillary Glucose Calcium Phosphorus Magnesium Total Bilirubin AST ALT Alkaline Phosphatase Total Creatine Kinase 173 H Troponin I 0.023 Total Protein Albumin Procalcitonin Urine Color Urine Appearance Urine pH Ur Specific [place] Urine Protein Urine Glucose (UA) Urine Ketones Ur Blood (Man) Urine Nitrate Urine Bilirubin Urine Urobilinogen Add Ur Microanalysis Leukocyte Esterase Rfl Urine RBC Urine WBC Urine WBC Clumps Ur Squamous Epith Cells Urine Bacteria Urine Casts U Random Total Protein Ur Random Sodium Ur Random Potassium Ur Random Urea Urine Creatinine Protein/Creat Ratio 2 Nasal MRSA (PCR) Detected A* Random Vancomycin 09/06/25 09/06/25 09/06/25 20:37 20:37 23:43 WBC RBC Hgb 13.2 L Hct Cancelled 41.0 L MCV 91.1 MCH 29.3 MCHC 32.2 RDW 16.5 H Plt Count 242 MPV 10.5 H Sodium Potassium Chloride Carbon Dioxide Anion Gap BUN Creatinine Estim Creat Clear Calc Estimated GFR Glucose POC Capillary Glucose Calcium Phosphorus Magnesium Total Bilirubin AST ALT Alkaline Phosphatase Total Creatine Kinase Troponin I 0.026 Total Protein Albumin Procalcitonin 8.3 Urine Color Urine Appearance Urine pH Ur Specific [place] Urine Protein Urine Glucose (UA) Urine Ketones Ur Blood (Man) Urine Nitrate Urine Bilirubin Urine Urobilinogen Add Ur Microanalysis Leukocyte Esterase Rfl Urine RBC Urine WBC Urine WBC Clumps Ur Squamous Epith Cells Urine Bacteria Urine Casts U Random Total Protein Ur Random Sodium Ur Random Potassium Ur Random Urea Urine Creatinine Protein/Creat Ratio 2 Nasal MRSA (PCR) Random Vancomycin 09/07/25 09/07/25 09/07/25 00:08 05:32 08:06 WBC 34.1 H RBC 3.88 L Hgb 11.4 L Hct 36.1 L MCV 93.0 MCH 29.4 MCHC 31.6 L RDW 16.7 H Plt Count 198 MPV 10.8 H Sodium 143 Potassium 3.4 Chloride 110 H Carbon Dioxide 25 Anion Gap 8 BUN 36 H Creatinine 1.04 Estim Creat Clear Calc 40 Estimated GFR > 60 Glucose 114 H POC Capillary Glucose 101 Calcium 8.5 Phosphorus 3.2 Magnesium 1.7 Total Bilirubin 0.7 AST 36 ALT 14 Alkaline Phosphatase 65 Total Creatine Kinase Troponin I Total Protein 5.8 L Albumin 3.3 L Procalcitonin Urine Color Light red H Urine Appearance Turbid H Urine pH 5.5 Ur Specific [place] 1.013 Urine Protein 2+ H Urine Glucose (UA) Negative Urine Ketones Negative Ur Blood (Man) 3+ H Urine Nitrate Negative Urine Bilirubin Negative Urine Urobilinogen 0.2 Add Ur Microanalysis Reviewed Leukocyte Esterase Rfl 3+ H Urine RBC >100 H Urine WBC >100 H Urine WBC Clumps Present H Ur Squamous Epith Cells Occasional Urine Bacteria 1+ H Urine Casts 6-10 U Random Total Protein Ur Random Sodium Ur Random Potassium Ur Random Urea Urine Creatinine Protein/Creat Ratio 2 Nasal MRSA (PCR) Random Vancomycin 09/07/25 09/07/25 09/07/25 08:11 08:11 15:21 WBC 27.1 H RBC 3.18 L Hgb 9.3 L Hct 29.3 L MCV 92.1 MCH 29.2 MCHC 31.7 L RDW 16.8 H Plt Count 150 MPV 10.3 Sodium Potassium Chloride Carbon Dioxide Anion Gap BUN Creatinine Estim Creat Clear Calc Estimated GFR Glucose POC Capillary Glucose Calcium Phosphorus Magnesium Total Bilirubin AST ALT Alkaline Phosphatase Total Creatine Kinase Troponin I Total Protein Albumin Procalcitonin Urine Color Urine Appearance Urine pH Ur Specific [place] Urine Protein Urine Glucose (UA) Urine Ketones Ur Blood (Man) Urine Nitrate Urine Bilirubin Urine Urobilinogen Add Ur Microanalysis Leukocyte Esterase Rfl Urine RBC Urine WBC Urine WBC Clumps Ur Squamous Epith Cells Urine Bacteria Urine Casts U Random Total Protein 104 Ur Random Sodium 97 Ur Random Potassium 26.7 Ur Random Urea 332 Urine Creatinine 22.8 22.3 Protein/Creat Ratio 2 4.56 H Nasal MRSA (PCR) Random Vancomycin 7.2 L
[2025-09-07 21:44] LABS: Hematocrit 29.3 % (42.0-52.0); Hemoglobin 9.3 g/dL (14.0-18.0); Mean Corpuscular HGB Conc 31.7 g/dl (32-36); Mean Corpuscular Hemoglobin 29.1 pg (26-34); Mean Corpuscular Volume 91.6 fl (80-100); Platelet Count Result 152 k/mm3 (150-375); Red Blood Count 3.20 M/mm3 (4.6-6.20); White Blood Count 24.5 K/mm3 (4.5-10.0)
[2025-09-08] VITALS (17 sets, daily range): BP systolic 98–148; BP diastolic 60–80; PULSE 70–105; RESP 20–23; TEMP 36.8–37.8; O2SAT 90–96
--- NOTE | 2025-09-08 02:41 | PC.NURSE ---
This patient, Bashir Navarrost Siddiqui, was received from ICU-3 on 09/08/25 at 0200. Patient/family oriented to unit policies and routines
[2025-09-08 06:07] LABS: Hematocrit 31.1 % (42.0-52.0); Hemoglobin 9.8 g/dL (14.0-18.0); Immature Platelet Fraction Pct 5.8 % (0.9-11.2); Mean Corpuscular HGB Conc 31.5 g/dl (32-36); Mean Corpuscular Hemoglobin 29.2 pg (26-34); Mean Corpuscular Volume 92.6 fl (80-100); Platelet Count Result 144 k/mm3 (150-375); Red Blood Count 3.36 M/mm3 (4.6-6.20); White Blood Count 21.5 K/mm3 (4.5-10.0)
[2025-09-08] MEDS: CENTRAL LINE FLUSH 10 ML IV PUSH ×3 (06:11→21:07)
[2025-09-08 06:30] LABS: Alanine Aminotransferase 11 U/L (6-50); Albumin Level 3.0 g/dL (3.5-5.1); Alkaline Phosphatase 64 U/L (38-126); Anion Gap 8 mmol/L (4-12); Aspartate Amino Transferase 25 U/L (17-59); Bilirubin,Total 0.9 mg/dL (0.2-1.3); Blood Urea Nitrogen 24 mg/dL (9-20); Calcium 8.5 mg/dL (8.4-10.2); Carbon Dioxide 26 mmol/L (22-30); Chloride 115 mmol/L (98-107); Estimated CRCL calculation 80 ml/min; Estimated Glomerular Filt Rate > 60; Glucose 96 mg/dL (65-110); Magnesium 1.9 mg/dL (1.6-2.3); Potassium 2.4 mmol/L (3.4-5.0); Sodium 149 mmol/L (137-145); Total Protein 5.5 g/dL (6.3-8.2)
[2025-09-08 07:26] LABS: Alanine Aminotransferase 13 U/L (6-50); Albumin Level 3.0 g/dL (3.5-5.1); Alkaline Phosphatase 72 U/L (38-126); Anion Gap 7 mmol/L (4-12); Aspartate Amino Transferase 60 U/L (17-59); Bilirubin,Total 0.9 mg/dL (0.2-1.3); Blood Urea Nitrogen 24 mg/dL (9-20); Calcium 8.6 mg/dL (8.4-10.2); Carbon Dioxide 25 mmol/L (22-30); Chloride 116 mmol/L (98-107); Estimated CRCL calculation 80 ml/min; Estimated Glomerular Filt Rate > 60; Glucose 95 mg/dL (65-110); Potassium 2.4 mmol/L (3.4-5.0); Sodium 148 mmol/L (137-145); Total Protein 5.4 g/dL (6.3-8.2)
--- NOTE | 2025-09-08 08:10 | P.CDI_ITS ---
<Statement entered by Baltazar cortes Oca, MD - 09/08/25 08:43> This documentation has been reviewed and approved. Agree with severe malnutrition. CDI Query Clarification Request BMI: 19.0 Nutritional Diagnostic Statement: Please refer to the comprehensive nutrition assessment for further information. If you agree with diagnosis of Severe Protein Calorie Malnutrition as related to inadequate protein energy intake with increased protein-energy needs in setting of chronic disease as evidenced by minimal oral intake for > 1-2 months; significant weight loss of 27 ibs (17%) in 1 month; severe subcutaneous fat loss (orbital fat pads) and severe muscle wasting (temporalis, clavicle). Please specify severity if known: * Mild * Moderate * Severe * Other/Unknown
[2025-09-08] MEDS: KCL 40 MEQ/WATER 100 ML 100 ML 25 ML IVPB ×2 (08:30→15:10)
[2025-09-08] MEDS: CEFEPIME 2 GM in SODIUM CHLORIDE 0.9% IV 50 ML 100 ML IVPB ×2 (08:35→21:06)
--- NOTE | 2025-09-08 08:36 | PCSTNOTE ---
Please refer to the Bedside Swallow Evaluation in the EMR. Please note, silent aspiration cannot be ruled out at bedside. Pt is a 69 year old male who presents with a relevant past medical history of multiple sclerosis and COPD. He presents at the hospital from his half-way due to notably altered mental status. Orders placed due to history of a neurogenic disorder. Pt with no known history of dysphagia and does not currently have PNA. RN agreeable to evaluation and stated that patient inconsistently follows commands. Upon Speech Language Pathologist (ELECTROSTATIC POWDER COATING TECHNICIAN) entry, the patient with notable confusion (i.e. not answering questions appropriately consistently) and some fatigue. This oral mechanism exam was remarkable for patient having limited dentition. Throughout minimal PO trials, it was observed that the patient had adequate labial and lingual range of motion. PO trials included ice chips x2 , thin liquids via teaspoon x2, small controlled cup drink, and trials applesauce. Oral Preparation: The patient demonstrated a fairly timely oral preparation across consistencies. Pharyngeal stage: When presented ice chips, tsp thin liquid, small controlled drink thin liquid and applesauce trials the patient had no coughing or choking noted. However swallow was delayed across all consistencies with weak laryngeal elevation and a slight wet/raspy quality. Suspect patient at high risk for aspiration across consistencies. These findings were discussed with the RN and MD. Recommendations: - NPO; ice chips sparingly with RN supervision and only when alert - Repeat bedside swallow evaluation or MBS when able to tolerate and complete.
[2025-09-08] MEDS: MUPIROCIN 2% OINT 22 GM TUBE 1 APPLIC EACH NARE ×2 (08:45→21:07)
[2025-09-08] MEDS: FLUCONAZOLE 100 MG/NACL 50 ML 100 MG/50 ML BTL 50 MG IVPB (08:46)
[2025-09-08] MEDS: MAGNESIUM SULF 1 GM/D5W 100 ML 1 GM/100 ML BAG IVPB (11:47)
[2025-09-08 12:22] LABS: Add Urine Microscopic? YES; Appearance Urine Turbid (Clear); Glucose Urine UA Negative (Negative); Leukocyte Esterase Ur 3+ LEU/UL (Negative); Need Manual Microscopic Reviewed; Nitrate Urine Negative (Negative); Specific Grav Ur 1.019 (1.001-1.035)
[2025-09-08 13:44] LABS: Potassium 2.9 mmol/L (3.4-5.0)
[2025-09-08 13:48] LABS: Magnesium 2.4 mg/dL (1.6-2.3)
--- NOTE | 2025-09-08 16:46 | PM.IMPN ---
Progress Note: A&P Assessment and Plan (1) Septic shock: Code(s): A41.9 - Sepsis, unspecified organism; R65.21 - Severe sepsis with septic shock Status: Acute Assessment and Plan: Sepsis secondary to UTI. Uterine present with significant hematuria, which appears to be clearing up. With history of Nehal UTI. Blood blood culture positive for Gram-negative rods, confirmed to be Proteus. Will continue cefepime and discontinue vancomycin and fluconazole at this time. (2) Pulmonary embolism: Code(s): I26.99 - Other pulmonary embolism without acute cor pulmonale Status: Acute Assessment and Plan: CTA confirmed PE. In light of significant hematuria anticoagulation will be held. Depending on how he does he may need a tPA candidate for AA anticoagulation and may need IVC filter. Will see if urine clears and will start heparin drip if hematuria resolves. Echo: No LA thrombus Venous doppler: negative for DVT 09/08: Repeat UA shows 3+ blood. Will await Hematology recommendations are as course to resumption of anticoagulation for management of acute PE. (3) CHELSEA (acute kidney injury): Code(s): N17.9 - Acute kidney failure, unspecified Status: Resolved Assessment and Plan: Secondary to sepsis hypotension and hypovolemia Renal function improved with IV fluids Creatinine now normalized Monitor urine output electrolytes and creatinine (4) Acute hemorrhagic cystitis: Code(s): N30.01 - Acute cystitis with hematuria Status: Acute Assessment and Plan: Associated with UTI Urology has been consulted-deferring anticoagulation to hospitalist team. We will assess recall hematology and continue to evaluate for hematuria on the daily basis, will start anticoagulation for PE if hemoglobin remains stable and hematuria continues to clear (5) COPD (chronic obstructive pulmonary disease): Qualifiers: COPD type: unspecified COPD Qualified Code(s): J44.9 - Chronic obstructive pulmonary disease, unspecified Code(s): J44.9 - Chronic obstructive pulmonary disease, unspecified Status: Chronic Assessment and Plan: Bronchodilators p.r.n. (6) Hypokalemia: Code(s): E87.6 - Hypokalemia Status: Acute Assessment and Plan: Drop in potassium on 09/08, potassium was repleted, magnesium level was checked and also 1 g magnesium sulfate was administered to assist with repletion of potassium. Most likely causes due to poor oral intake as patient is currently NPO due to significant swallowing difficulties, he is refusing NG tube at this time. Will continue to trend potassium levels and replete as needed Plan Patient is refusing NG tube for feeding. He continues to be NPO at this time due to swallow difficulty. Subjective Date/time seen: 09/08/25 16:46 Interval history: 69 y/o M with PMH of multiple sclerosis, COPD, bedbound, and decubitus ulcer presents here with altered mental status. The patient presents here from a local [place] [facility] on [facility] for further evaluation of altered mental status. HPI obtained through chart review, EMS report, ED provider report, and family report as the patient is altered. Per EMS, they were not provided with much information about the patient beyond that he was more altered than usual. Per chart review, the patient was recently admitted here from 07/26/2025 to 08/11/2025 for altered mental status, sepsis (UTI and/or decubitus ulcer), decubitus ulcer to the sacrum, left heel, and right lateral foot. He underwent a sharp excisional debridement of his stage IV sacral decubitus ulcer on 07/27/2025. During his stay he had acute respiratory distress which was felt to be secondary to a CHF exacerbation for which he was gently diuresed, echo showed grade 1 diastolic dysfunction with a preserved EF. Patient's altered mental status was contributed to metabolic encephalopathy, may have been exacerbated by a B12/vitamin-D deficiency. Patient also developed a postop ileus for which he was treated with MiraLax and Senokot. Patient was also evaluated by Infectious Disease due to his urine culture growing Nehal orthopsilosis, however the did not feel it with pathogenic at that time. Initial VS at presentation: 99.2? F (now 100.4? F), HR 135, RR 26, 89/62, and 96% on RA. ED workup showed: WBC 36.5, initial hemoglobin 11.6 (11.9 on 09/03), normal coags, creatinine 2.31 and GFR 28 (previously 0.5 and GFR >60 on 09/03), lactic 5.3, calcium 7.9 in the setting of an albumin of 3.0, CRP 6.3. Mondragon replaced and patient had annette blood, so unable to obtain UA at time of admission. CXR showed no acute cardiopulmonary abnormality. CTA of the chest/abdomen/pelvis showed a filling defect of the right upper and middle lobe segmental and subsegmental pulmonary artery consistent with pulmonary embolism with small thrombus burden, interval development of extensive mural thickening and enhancement within the bladder wall consistent with cystitis with no evidence of bladder fistula and Mondragon catheter present, extensive subcutaneous edema with small volume of ascites consistent with anasarca. Review of Systems Review of Systems: All systems reviewed & are unremarkable except as noted in HPI and below Exam Narrative: General: awake but confused in no distress Lungs/Chest: Trachea central Clear BS B/L, No crackles or wheezing. Cardiac: RRR. Normal S1 S2. No murmurs Circulation: Pedal pulses are intact and symmetrical. Abdomen: Normal bowel sounds.. Soft. NT. ND. Extremities: No clubbing, cyanosis or edema. Warm : Mondragon in place with pink urine with CBI Neurologic: He does not follow commands, but he moves all his 4 extremities. PERRL mumbles on asking questions Skin: Multiple skin wounds in various stages Objective Data Vital Signs Vital Signs: Vital Signs - 24 hr 09/07/25 18:00 09/07/25 20:00 09/07/25 20:00 Temperature Pulse Rate 86 82 Respiratory Rate 22 H Blood Pressure 116/63 Pulse Oximetry 98 95 Oxygen Delivery Nasal Cannula Oxygen Flow Rate 2 09/07/25 20:00 09/07/25 21:12 09/07/25 22:00 Temperature 100.7 F H Pulse Rate 81 92 100 Respiratory Rate 22 H Blood Pressure 147/85 H Pulse Oximetry 95 Oxygen Delivery Oxygen Flow Rate 09/08/25 00:00 09/08/25 00:00 09/08/25 00:00 Temperature 100.0 F H Pulse Rate 94 92 Respiratory Rate 23 H Blood Pressure 127/76 Pulse Oximetry 95 95 Oxygen Delivery Nasal Cannula Oxygen Flow Rate 2 09/08/25 02:00 09/08/25 03:09 09/08/25 04:00 Temperature 99.3 F Pulse Rate 99 100 Respiratory Rate 22 H Blood Pressure 98/72 L Pulse Oximetry 92 95 Oxygen Delivery Nasal Cannula Oxygen Flow Rate 2 09/08/25 04:00 09/08/25 06:00 09/08/25 07:46 Temperature 99.8 F H Pulse Rate 98 105 H 94 Respiratory Rate 22 H Blood Pressure 128/60 Pulse Oximetry 91 Oxygen Delivery Oxygen Flow Rate 09/08/25 08:00 09/08/25 10:00 09/08/25 12:00 Temperature 99.7 F H Pulse Rate 93 92 89 Respiratory Rate 20 Blood Pressure 120/64 Pulse Oximetry 92 Oxygen Delivery Oxygen Flow Rate 09/08/25 12:00 09/08/25 14:00 09/08/25 15:45 Temperature 98.3 F Pulse Rate 87 93 88 Respiratory Rate 20 Blood Pressure 148/68 H Pulse Oximetry 95 Oxygen Delivery Oxygen Flow Rate Intake/Output Intake/Output: Intake & Output 09/05/25 09/06/25 09/07/25 09/08/25 23:59 23:59 23:59 23:59 Intake Total 8200 3970 250 Output Total 9100 6825 1227 [id number] -[id number] [id number] Meds/Results Medications: Active Medications Generic Name Dose Route Start Last Admin Trade Name Freq PRN Reason Stop Dose Admin Acetaminophen 650 mg 09/06/25 18:10 Acetaminophen 650 Mg Suppository RECTAL Q6H PRN Mild Pain (1-3) or Fever Albuterol/Ipratropium 3 ml 09/06/25 18:09 Ipratropium 0.5 Mg/Albuterol Sulfate 2.5 Mg (Base) Ampul.Neb 3 Ml INHALATION Q6HRT PRN copd Alteplase, Recombinant 2 mg 09/06/25 18:10 09/07/25 05:56 Alteplase 2 Mg Vial (Cathflo) IV PUSH 2 mg ONCE PRN Administration Line Occlusion Dextrose 12.5 gm 09/06/25 18:09 Dextrose 50% 25 Gm/50 Ml Syringe IV PUSH PRN PRN Hypoglycemia Protocol Glucagon 1 mg 09/06/25 18:09 Glucagon For Inj 1 Mg Vial IM PRN PRN Hypoglycemia Protocol Glucose 15 gm 09/06/25 18:09 Glucose Oral Gel 15 Gm Of Glucse In 37.5 Gm Tube PO PRN PRN Hypoglycemia Protocol Dextrose 1,000 mls @ 100 mls/hr 09/06/25 18:09 Dextrose 5% 1,000 Ml IVPB PRN PRN Hypoglycemia Protocol Cefepime HCl 2 gm/ Sodium 50 mls @ 100 mls/hr 09/07/25 09:00 09/08/25 12:00 Chloride IVPB Infused Q12H MICAH Infusion Potassium Chloride 100 mls @ 25 mls/hr 09/08/25 14:14 09/08/25 15:10 Kcl 40 Meq/Water 100 Ml IVPB 09/08/25 18:13 25 mls/hr ONCE ONE Administration Mupirocin 1 applic 09/07/25 09:00 09/08/25 08:45 Mupirocin 2% Oint 22 Gm Tube EACH NARE 09/11/25 21:01 1 applic Q12HR MICAH Administration Sodium Chloride 10 ml 09/07/25 14:00 09/08/25 15:46 Central Line Flush IV PUSH 10 ml Q8HR MICAH Administration Sodium Chloride 20 ml 09/07/25 10:44 Central Line Flush IV PUSH PRN PRN after blood draws Sodium Hypochlorite 1 applic 09/07/25 14:00 09/07/25 17:11 Sod Hypochlorite 1/4 Strength 473 Ml TOPICAL Not Given DAILY MICAH Radiology Results: ITS Impressions Chest X-Ray 09/06/25 12:50 Impression: No acute cardiopulmonary abnormality. Chest/Abdomen/Pelvis CTA 09/06/25 14:07 IMPRESSION: 1. Filling defect right upper and middle lobe segmental and subsegmental pulmonary artery consistent with pulmonary embolism, small thrombus burden. 2: Interval development of extensive mural thickening and enhancement within the bladder wall, consistent with cystitis. No evidence for bladder fistula. Mondragon catheter present. 3: Extensive subcutaneous edema with small volume of ascites, consistent with anasarca. Dr. Tariq Rivero discussed with Dr. Hector Pritchard MD at 09/06/2025 14:17 [employer]. Renal Ultrasound 09/06/25 21:28 IMPRESSION: There is a Mondragon catheter within the bladder. Left renal cyst measures 2 cm. Venous Doppler Study 09/07/25 14:37 Impression: Negative for DVT. Labs Labs: Laboratory Results - last 24 hr 09/07/25 09/07/25 09/08/25 21:40 23:48 05:50 WBC 24.5 H 21.5 H RBC 3.20 L 3.36 L Hgb 9.3 L 9.8 L Hct 29.3 L 31.1 L MCV 91.6 92.6 MCH 29.1 29.2 MCHC 31.7 L 31.5 L RDW 16.8 H 16.7 H Plt Count 152 144 L MPV 10.8 H 11.3 H % Immature Plt Fraction 5.8 Sodium 149 H Potassium 2.4 L* Chloride 115 H Carbon Dioxide 26 Anion Gap 8 BUN 24 H D Creatinine 0.67 L Estim Creat Clear Calc 80 Estimated GFR > 60 Glucose 96 POC Capillary Glucose 108 H Calcium 8.5 Phosphorus 2.2 L Magnesium 1.9 Total Bilirubin 0.9 AST 25 ALT 11 Alkaline Phosphatase 64 Total Protein 5.5 L Albumin 3.0 L Urine Color Urine Appearance Urine pH Ur Specific [place] Urine Protein Urine Glucose (UA) Urine Ketones Ur Blood (Man) Urine Nitrate Urine Bilirubin Urine Urobilinogen Ur Leukocyte Esterase Add Ur Microanalysis Urine RBC Urine WBC Ur Squamous Epith Cells Urine Bacteria Urine Casts 09/08/25 09/08/25 09/08/25 06:46 11:52 11:53 WBC RBC Hgb Hct MCV MCH MCHC RDW Plt Count MPV % Immature Plt Fraction Sodium 148 H Potassium 2.4 L* Chloride 116 H Carbon Dioxide 25 Anion Gap 7 BUN 24 H Creatinine 0.67 L Estim Creat Clear Calc 80 Estimated GFR > 60 Glucose 95 POC Capillary Glucose 103 Calcium 8.6 Phosphorus Magnesium Total Bilirubin 0.9 AST 60 H ALT 13 Alkaline Phosphatase 72 Total Protein 5.4 L Albumin 3.0 L Urine Color Yellow Urine Appearance Turbid H Urine pH 6.0 Ur Specific [place] 1.019 Urine Protein 3+ H Urine Glucose (UA) Negative Urine Ketones 1+ H Ur Blood (Man) 3+ H Urine Nitrate Negative Urine Bilirubin Negative Urine Urobilinogen 0.2 Ur Leukocyte Esterase 3+ H Add Ur Microanalysis Reviewed Urine RBC >100 H Urine WBC >100 H Ur Squamous Epith Cells None seen Urine Bacteria Rare Urine Casts 6-10 09/08/25 13:18 WBC RBC Hgb Hct MCV MCH MCHC RDW Plt Count MPV % Immature Plt Fraction Sodium Potassium 2.9 L Chloride Carbon Dioxide Anion Gap BUN Creatinine Estim Creat Clear Calc Estimated GFR Glucose POC Capillary Glucose Calcium Phosphorus Magnesium 2.4 H Total Bilirubin AST ALT Alkaline Phosphatase Total Protein Albumin Urine Color Urine Appearance Urine pH Ur Specific [place] Urine Protein Urine Glucose (UA) Urine Ketones Ur Blood (Man) Urine Nitrate Urine Bilirubin Urine Urobilinogen Ur Leukocyte Esterase Add Ur Microanalysis Urine RBC Urine WBC Ur Squamous Epith Cells Urine Bacteria Urine Casts Hospitalist MIPS Advance Care Plan I have confirmed that the patient's Advanced Care Plan is present, code status is documented, or surrogate decision maker is listed in patient medical record.: Yes Medication Reconciliation I have utilized all available resources to obtain, update and review the patients current medications (includes all prescriptions, OTC, herbals, cannabis, and nutritional supplements).: Yes
--- NOTE | 2025-09-08 16:56 | WPDUROPN2 ---
Progress Note: A&P Assessment and Plan (1) Gross hematuria: Code(s): R31.0 - Gross hematuria Status: Acute Assessment and Plan: - urine light pink. - CBI: continue to run to clear urine. then may titrate down - Trend Hgb, went up slightly today and is 9.8 today - Continue broad spectrum Abx - Urine culture pending. Culture driven antibiotics per primary service. - Pt with PE needing anticoagulation, however, continues to have significant gross hematuria. Defer to hospitalist team to determine risks vs benefits of AC use for known PEs. Subjective Subjective Date/Time Seen: 09/08/25 16:56 Interval history: 69 y/o M with PMH of multiple sclerosis, COPD, bedbound, and decubitus ulcer presents here with altered mental status. The patient presents here from a local [facility] on 09/[facility] for further evaluation of altered mental status. HPI obtained through chart review, EMS report, ED provider report, and family report as the patient is altered. Per EMS, they were not provided with much information about the patient beyond that he was more altered than usual. Per chart review, the patient was recently admitted here from 07/26/2025 to 08/11/2025 for altered mental status, sepsis (UTI and/or decubitus ulcer), decubitus ulcer to the sacrum, left heel, and right lateral foot. He underwent a sharp excisional debridement of his stage IV sacral decubitus ulcer on 07/27/2025. During his stay he had acute respiratory distress which was felt to be secondary to a CHF exacerbation for which he was gently diuresed, echo showed grade 1 diastolic dysfunction with a preserved EF. Patient's altered mental status was contributed to metabolic encephalopathy, may have been exacerbated by a B12/vitamin-D deficiency. Patient also developed a postop ileus for which he was treated with MiraLax and Senokot. Patient was also evaluated by Infectious Disease due to his urine culture growing Nehal orthopsilosis, however the did not feel it with pathogenic at that time. CTA of the chest/abdomen/pelvis showed a filling defect of the right upper and middle lobe segmental and subsegmental pulmonary artery consistent with pulmonary embolism with small thrombus burden, interval development of extensive mural thickening and enhancement within the bladder wall consistent with cystitis with no evidence of bladder fistula and Mondragon catheter present, extensive subcutaneous edema with small volume of ascites consistent with anasarca. 09/08/2025: Patient downgraded from ICU and is looking better today. Patient communicated with me today minimally. no acute distress. Review of Systems Review of Systems: ROS unobtainable: Yes unobtainable due to medical condition Exam Const: Other: Pt laying in bed, responsive to questions HENMT: Mouth: Yes dry mucous membranes Eyes: General: appearance normal, both eyes and all related structures Resp: Effort & Inspection: normal respiratory effort Urinary Catheter: Urinary Catheter: patent and draining and urine pink (light. ) Skin: General skin exam: normal color Other: pale Objective Data Vital Signs Vital Signs: Vital Signs - 24 hr 09/07/25 18:00 09/07/25 20:00 09/07/25 20:00 Temperature Pulse Rate 86 82 Respiratory Rate 22 H Blood Pressure 116/63 Pulse Oximetry 98 95 Oxygen Delivery Nasal Cannula Oxygen Flow Rate 2 09/07/25 20:00 09/07/25 21:12 09/07/25 22:00 Temperature 100.7 F H Pulse Rate 81 92 100 Respiratory Rate 22 H Blood Pressure 147/85 H Pulse Oximetry 95 Oxygen Delivery Oxygen Flow Rate 09/08/25 00:00 09/08/25 00:00 09/08/25 00:00 Temperature 100.0 F H Pulse Rate 94 92 Respiratory Rate 23 H Blood Pressure 127/76 Pulse Oximetry 95 95 Oxygen Delivery Nasal Cannula Oxygen Flow Rate 2 09/08/25 02:00 09/08/25 03:09 09/08/25 04:00 Temperature 99.3 F Pulse Rate 99 100 Respiratory Rate 22 H Blood Pressure 98/72 L Pulse Oximetry 92 95 Oxygen Delivery Nasal Cannula Oxygen Flow Rate 2 09/08/25 04:00 09/08/25 06:00 09/08/25 07:46 Temperature 99.8 F H Pulse Rate 98 105 H 94 Respiratory Rate 22 H Blood Pressure 128/60 Pulse Oximetry 91 Oxygen Delivery Oxygen Flow Rate 09/08/25 08:00 09/08/25 10:00 09/08/25 12:00 Temperature 99.7 F H Pulse Rate 93 92 89 Respiratory Rate 20 Blood Pressure 120/64 Pulse Oximetry 92 Oxygen Delivery Oxygen Flow Rate 09/08/25 12:00 09/08/25 14:00 09/08/25 15:45 Temperature 98.3 F Pulse Rate 87 93 88 Respiratory Rate 20 Blood Pressure 148/68 H Pulse Oximetry 95 Oxygen Delivery Oxygen Flow Rate Intake/Output Intake/Output: Intake & Output 09/05/25 09/06/25 09/07/25 09/08/25 23:59 23:59 23:59 23:59 Intake Total 8200 3970 250 Output Total 9100 6662 1229 [id number] -[id number] [id number] [id number] Meds/Results Medications: Active Medications Generic Name Dose Route Start Last Admin Trade Name Freq PRN Reason Stop Dose Admin Acetaminophen 650 mg 09/06/25 18:10 Acetaminophen 650 Mg Suppository RECTAL Q6H PRN Mild Pain (1-3) or Fever Albuterol/Ipratropium 3 ml 09/06/25 18:09 Ipratropium 0.5 Mg/Albuterol Sulfate 2.5 Mg (Base) Ampul.Neb 3 Ml INHALATION Q6HRT PRN copd Alteplase, Recombinant 2 mg 09/06/25 18:10 09/07/25 05:56 Alteplase 2 Mg Vial (Cathflo) IV PUSH 2 mg ONCE PRN Administration Line Occlusion Dextrose 12.5 gm 09/06/25 18:09 Dextrose 50% 25 Gm/50 Ml Syringe IV PUSH PRN PRN Hypoglycemia Protocol Glucagon 1 mg 09/06/25 18:09 Glucagon For Inj 1 Mg Vial IM PRN PRN Hypoglycemia Protocol Glucose 15 gm 09/06/25 18:09 Glucose Oral Gel 15 Gm Of Glucse In 37.5 Gm Tube PO PRN PRN Hypoglycemia Protocol Dextrose 1,000 mls @ 100 mls/hr 09/06/25 18:09 Dextrose 5% 1,000 Ml IVPB PRN PRN Hypoglycemia Protocol Cefepime HCl 2 gm/ Sodium 50 mls @ 100 mls/hr 09/07/25 09:00 09/08/25 12:00 Chloride IVPB Infused Q12H MICAH Infusion Potassium Chloride 100 mls @ 25 mls/hr 09/08/25 14:14 09/08/25 15:10 Kcl 40 Meq/Water 100 Ml IVPB 09/08/25 18:13 25 mls/hr ONCE ONE Administration Mupirocin 1 applic 09/07/25 09:00 09/08/25 08:45 Mupirocin 2% Oint 22 Gm Tube EACH NARE 09/11/25 21:01 1 applic Q12HR MICAH Administration Sodium Chloride 10 ml 09/07/25 14:00 09/08/25 15:46 Central Line Flush IV PUSH 10 ml Q8HR MICAH Administration Sodium Chloride 20 ml 09/07/25 10:44 Central Line Flush IV PUSH PRN PRN after blood draws Sodium Hypochlorite 1 applic 09/07/25 14:00 09/07/25 17:11 Sod Hypochlorite 1/4 Strength 473 Ml TOPICAL Not Given DAILY [facility] Radiology Results: ITS Impressions Chest X-Ray 09/06/25 12:50 Impression: No acute cardiopulmonary abnormality. Chest/Abdomen/Pelvis CTA 09/06/25 14:07 IMPRESSION: 1. Filling defect right upper and middle lobe segmental and subsegmental pulmonary artery consistent with pulmonary embolism, small thrombus burden. 2: Interval development of extensive mural thickening and enhancement within the bladder wall, consistent with cystitis. No evidence for bladder fistula. Mondragon catheter present. 3: Extensive subcutaneous edema with small volume of ascites, consistent with anasarca. Dr. Tariq Rivero discussed with Dr. Hector Pritchard MD at 09/06/2025 14:17 [employer]. Renal Ultrasound 09/06/25 21:28 IMPRESSION: There is a Mondragon catheter within the bladder. Left renal cyst measures 2 cm. Venous Doppler Study 09/07/25 14:37 Impression: Negative for DVT. Labs Labs: Laboratory Results - last 24 hr 09/07/25 09/07/25 09/08/25 21:40 23:48 05:50 WBC 24.5 H 21.5 H RBC 3.20 L 3.36 L Hgb 9.3 L 9.8 L Hct 29.3 L 31.1 L MCV 91.6 92.6 MCH 29.1 29.2 MCHC 31.7 L 31.5 L RDW 16.8 H 16.7 H Plt Count 152 144 L MPV 10.8 H 11.3 H % Immature Plt Fraction 5.8 Sodium 149 H Potassium 2.4 L* Chloride 115 H Carbon Dioxide 26 Anion Gap 8 BUN 24 H D Creatinine 0.67 L Estim Creat Clear Calc 80 Estimated GFR > 60 Glucose 96 POC Capillary Glucose 108 H Calcium 8.5 Phosphorus 2.2 L Magnesium 1.9 Total Bilirubin 0.9 AST 25 ALT 11 Alkaline Phosphatase 64 Total Protein 5.5 L Albumin 3.0 L Urine Color Urine Appearance Urine pH Ur Specific [place] Urine Protein Urine Glucose (UA) Urine Ketones Ur Blood (Man) Urine Nitrate Urine Bilirubin Urine Urobilinogen Ur Leukocyte Esterase Add Ur Microanalysis Urine RBC Urine WBC Ur Squamous Epith Cells Urine Bacteria Urine Casts 09/08/25 09/08/25 09/08/25 06:46 11:52 11:53 WBC RBC Hgb Hct MCV MCH MCHC RDW Plt Count MPV % Immature Plt Fraction Sodium 148 H Potassium 2.4 L* Chloride 116 H Carbon Dioxide 25 Anion Gap 7 BUN 24 H Creatinine 0.67 L Estim Creat Clear Calc 80 Estimated GFR > 60 Glucose 95 POC Capillary Glucose 103 Calcium 8.6 Phosphorus Magnesium Total Bilirubin 0.9 AST 60 H ALT 13 Alkaline Phosphatase 72 Total Protein 5.4 L Albumin 3.0 L Urine Color Yellow Urine Appearance Turbid H Urine pH 6.0 Ur Specific [place] 1.019 Urine Protein 3+ H Urine Glucose (UA) Negative Urine Ketones 1+ H Ur Blood (Man) 3+ H Urine Nitrate Negative Urine Bilirubin Negative Urine Urobilinogen 0.2 Ur Leukocyte Esterase 3+ H Add Ur Microanalysis Reviewed Urine RBC >100 H Urine WBC >100 H Ur Squamous Epith Cells None seen Urine Bacteria Rare Urine Casts 6-10 09/08/25 13:18 WBC RBC Hgb Hct MCV MCH MCHC RDW Plt Count MPV % Immature Plt Fraction Sodium Potassium 2.9 L Chloride Carbon Dioxide Anion Gap BUN Creatinine Estim Creat Clear Calc Estimated GFR Glucose POC Capillary Glucose Calcium Phosphorus Magnesium 2.4 H Total Bilirubin AST ALT Alkaline Phosphatase Total Protein Albumin Urine Color Urine Appearance Urine pH Ur Specific [place] Urine Protein Urine Glucose (UA) Urine Ketones Ur Blood (Man) Urine Nitrate Urine Bilirubin Urine Urobilinogen Ur Leukocyte Esterase Add Ur Microanalysis Urine RBC Urine WBC Ur Squamous Epith Cells Urine Bacteria Urine Casts
[2025-09-08] MEDS: SOD HYPOCHLORITE 1/4 STRENGTH 473 ML 1 APPLIC TOPICAL (17:19)
--- NOTE | 2025-09-08 17:51 | WPDONCCN ---
Assessment and Plan Assessment and plan (1) Pulmonary embolism: Code(s): I26.99 - Other pulmonary embolism without acute cor pulmonale Status: Acute Assessment and Plan: Patient is a care home resident with multiple medical conditions including multiple sclerosis and bedbound came into the hospital with mental status changes and diagnosed with sepsis and UTI. CT scan showed pulmonary embolism involving right upper and middle lobe pulmonary artery with small thrombus burden along with extensive mural thickening of the bladder wall consistent with cystitis. Doppler study showed no evidence of DVT. He denies any previous history of thromboembolic events. Due to gross hematuria anticoagulation therapy was placed on hold. Hemoglobin has dropped from 14.4 to 9.8. I agree with holding anticoagulation therapy due to a small thrombus burden, hemodynamic stability and ongoing hematuria. I will continue to hold anticoagulation therapy until hematuria resolves and hemoglobin becomes stable then we will consider starting anticoagulation therapy with low-dose Eliquis. IVC filter will not be helpful since patient already has pulmonary embolism and Doppler studies showed no evidence of DVT. I will also order workup for anemia including iron studies vitamin B12 and folic acid level. Leukocytosis is from sepsis and UTI. I have provided my office information for follow-up. HPI Data of Consult Date/Time: 09/08/25 17:51 Requesting Physician: Baltazar cortes Oca, MD Primary Care Provider: Gino Morin MD Consult Narrative Narrative: Bashir Gruber Sr. is a 69 year old male with multiple comorbidities including multiple sclerosis, COPD, decubitus ulcer and mental status changes brought into the hospital from the local care home with altered mental status. Patient had recent debridement of stage IV sacral decubitus ulcer done on July 27. CTA chest abdomen pelvis were performed that showed filling defect of the right upper and middle lobe segmental and subsegmental pulmonary artery consistent with pulmonary embolism with small thrombus burden. Doppler studies showed no evidence of DVT. There was extensive mural thickening and enhancement within the bladder consistent with cystitis. Due to hematuria anticoagulation therapy was discontinued. Patient was placed on CBI. He was also started on broad-spectrum antibiotic for sepsis and UTI. Patient is a poor historian. Review of Systems Review of Systems: Twelve point review of system was reviewed PMFSH Past Medical History Medical History Metabolic encephalopathy Secondary to infected decubitus ulcer, August 2025 Tobacco use COPD (chronic obstructive pulmonary disease) Multiple sclerosis BMI 22.0-22.9, adult Surgical History Surgical History History of hip surgery Right hip pinning June 2024 at [place] Hx of tonsillectomy Family History Family History Father Liver cancer Mother No problems noted. Sibling No problems noted. Social History Social History Smoking packs per day: 1.5 Smoking cigarettes per day: 30.0 Years smoked: 50 Smoking pack-years: 75.00 Smoking status: Unknown if ever smoked Second hand tobacco smoke exposure: Yes Alcohol intake: never Substance use: never Substance use type: unknown Do You Feel Safe in your Home?: Yes Lack of Transportation: No Lack of Food: Never True Current Housing: I Have Housing Concerned About Future Housing: No Difficulty Paying Gas/Electric Bills: No Difficulty Paying for Meds: No Currently Unemployed: No Education: High School Diploma/GED Difficulty w/ Childcare or Family Care: No Living arrangements: alone Occupation/Education: retired Additional occupation/education comments: [employer] Gender identity (if verbalized by the patient): Male Spiritual care concerns: No Meds Home Medications and Allergies Home Medications ?Medication ?Instructions ?Recorded ?Confirmed ?Type budesonide 160 mcg-glycopyr 9 2 inh inhalation BID #10.7 grams 02/17/25 09/06/25 Rx mcg-formot 4.8 mcg/actuation HFA inhaler (Breztri Aerosphere) ascorbic acid (vitamin C) 500 mg 500 mg PO DAILY Wounds 07/27/25 09/06/25 History capsule,extended release clobetasol 0.05 % topical cream 1 applic topical BID rash 07/27/25 09/06/25 History collagenase clostridium histo. 250 1 applic topical DAILY 07/27/25 09/06/25 History unit/gram topical ointment (Santyl) geriatric multivitamin-min 1 cap PO DAILY Wounds 07/27/25 09/06/25 History ipratropium 0.5 mg-albuterol 3 mg 3 ml inhalation Q6H PRN copd 07/27/25 09/06/25 History (2.5 mg base)/3 mL nebulization soln montelukast 10 mg tablet 10 mg PO HS 07/27/25 09/06/25 History (Singulair) oxycodone 5 mg tablet 5 mg PO Q6H PRN pain 07/27/25 09/06/25 History rivaroxaban 10 mg tablet (Xarelto) 10 mg PO DAILY 07/27/25 09/06/25 History bisacodyl 10 mg rectal suppository 10 mg RECTAL QAM PRN Constipation 08/11/25 09/06/25 Rx #12 ea sennosides 8.6 mg-docusate sodium 1 tab-cap PO HS #30 tabs 08/11/25 09/06/25 Rx 50 mg tablet (Senokot-S) interferon beta-1a 30 mcg/0.5 mL 30 mcg IM WEEKLY 09/06/25 09/06/25 History intramuscular pen injector (Avonex) magnesium citrate (Citroma oral 296 ml PO DAILY PRN constipation 09/06/25 09/06/25 History solution) magnesium hydroxide 400 mg/5 mL 30 ml PO DAILY PRN constipation 09/06/25 09/06/25 History oral suspension (Milk of Magnesia) sodium phosphates 19 gram-7 118 ml RECTAL DAILY PRN 09/06/25 09/06/25 History gram/118 mL enema (Fleet Enema) constipation Allergies Allergy/AdvReac Type Severity Reaction Status Date / Time No Known Allergies Allergy Verified 09/06/25 17:48 Vital Signs Vital Signs - 24 hr 09/07/25 18:00 09/07/25 20:00 09/07/25 20:00 Temperature Pulse Rate 86 82 Respiratory Rate 22 H Blood Pressure 116/63 Pulse Oximetry 98 95 Oxygen Delivery Nasal Cannula Oxygen Flow Rate 2 09/07/25 20:00 09/07/25 21:12 09/07/25 22:00 Temperature 38.2 C H Pulse Rate 81 92 100 Respiratory Rate 22 H Blood Pressure 147/85 H Pulse Oximetry 95 Oxygen Delivery Oxygen Flow Rate 09/08/25 00:00 09/08/25 00:00 09/08/25 00:00 Temperature 37.8 C H Pulse Rate 94 92 Respiratory Rate 23 H Blood Pressure 127/76 Pulse Oximetry 95 95 Oxygen Delivery Nasal Cannula Oxygen Flow Rate 2 09/08/25 02:00 09/08/25 03:09 09/08/25 04:00 Temperature 37.4 C Pulse Rate 99 100 Respiratory Rate 22 H Blood Pressure 98/72 L Pulse Oximetry 92 95 Oxygen Delivery Nasal Cannula Oxygen Flow Rate 2 09/08/25 04:00 09/08/25 06:00 09/08/25 07:46 Temperature 37.7 C H Pulse Rate 98 105 H 94 Respiratory Rate 22 H Blood Pressure 128/60 Pulse Oximetry 91 Oxygen Delivery Oxygen Flow Rate 09/08/25 08:00 09/08/25 10:00 09/08/25 12:00 Temperature 37.6 C H Pulse Rate 93 92 89 Respiratory Rate 20 Blood Pressure 120/64 Pulse Oximetry 92 Oxygen Delivery Oxygen Flow Rate 09/08/25 12:00 09/08/25 14:00 09/08/25 15:45 Temperature 36.8 C Pulse Rate 87 93 88 Respiratory Rate 20 Blood Pressure 148/68 H Pulse Oximetry 95 Oxygen Delivery Oxygen Flow Rate 09/08/25 16:00 Temperature Pulse Rate 87 Respiratory Rate Blood Pressure Pulse Oximetry Oxygen Delivery Oxygen Flow Rate Exam Narrative: Lungs are clear to auscultation bilaterally Cardiovascular regular rate rhythm no murmur Abdomen soft nontender nondistended Extremities mild edema Results Labs 09/08/25 05:50 09/08/25 13:18 Labs: Short CBC 09/07/25 09/08/25 Range/Units 21:40 05:50 WBC 24.5 H 21.5 H (4.5-10.0) K/mm3 Hgb 9.3 L 9.8 L (14.0-18.0) g/dL Hct 29.3 L 31.1 L (42.0-52.0) % Plt Count 152 144 L (150-375) k/mm3 BMP 09/08/25 09/08/25 09/08/25 05:50 06:46 13:18 Sodium 149 H 148 H Potassium 2.4 L* 2.4 L* 2.9 L Chloride 115 H 116 H Carbon Dioxide 26 25 BUN 24 H D 24 H Creatinine 0.67 L 0.67 L Glucose 96 95 Calcium 8.5 8.6 Liver Function 09/08/25 09/08/25 Range/Units 05:50 06:46 Total Bilirubin 0.9 0.9 (0.2-1.3) mg/dL AST 25 60 H (17-59) U/L ALT 11 13 (6-50) U/L Alkaline Phosphatase 64 72 (38-126) U/L Albumin 3.0 L 3.0 L (3.5-5.1) g/dL Urine 09/08/25 Range/Units 11:53 Urine Color Yellow (Yellow) Urine Appearance Turbid H (Clear) Urine pH 6.0 (5.0-9.0) Ur Specific [place] 1.019 (1.001-1.035) Urine Protein 3+ H (Negative) mg/dL Urine Glucose (UA) Negative (Negative) mg/dL
[2025-09-08 22:46] LABS: Potassium 2.9 mmol/L (3.4-5.0)
[2025-09-08 22:49] LABS: Iron 30 ug/dL (49-181)
[2025-09-08 22:59] LABS: Percent Iron Saturation 24 % (20-50)
[2025-09-08 23:24] LABS: Ferritin 540.00 ng/mL (11.1-264)
[2025-09-08 23:56] LABS: Vitamin B12 521.0 pg/mL (239-931)
[2025-09-09] VITALS (17 sets, daily range): BP systolic 119–154; BP diastolic 64–89; PULSE 75–100; RESP 20–23; TEMP 36.3–36.9; O2SAT 91–97
[2025-09-09] MEDS: KCL 40 MEQ/WATER 100 ML 100 ML 25 ML IVPB (00:01)
[2025-09-09 04:28] LABS: Hematocrit 33.7 % (42.0-52.0); Hemoglobin 10.3 g/dL (14.0-18.0); Immature Platelet Fraction Pct 7.0 % (0.9-11.2); Mean Corpuscular HGB Conc 30.6 g/dl (32-36); Mean Corpuscular Hemoglobin 28.8 pg (26-34); Mean Corpuscular Volume 94.1 fl (80-100); Platelet Count Result 118 k/mm3 (150-375); Red Blood Count 3.58 M/mm3 (4.6-6.20); White Blood Count 15.2 K/mm3 (4.5-10.0)
[2025-09-09 04:46] LABS: Alanine Aminotransferase 16 U/L (6-50); Albumin Level 3.0 g/dL (3.5-5.1); Alkaline Phosphatase 63 U/L (38-126); Anion Gap 6 mmol/L (4-12); Aspartate Amino Transferase 38 U/L (17-59); Bilirubin,Total 0.7 mg/dL (0.2-1.3); Blood Urea Nitrogen 24 mg/dL (9-20); Calcium 8.4 mg/dL (8.4-10.2); Carbon Dioxide 23 mmol/L (22-30); Chloride 122 mmol/L (98-107); Estimated CRCL calculation 86 ml/min; Estimated Glomerular Filt Rate > 60; Glucose 109 mg/dL (65-110); Magnesium 2.4 mg/dL (1.6-2.3); Potassium 3.7 mmol/L (3.4-5.0); Sodium 151 mmol/L (137-145); Total Protein 5.6 g/dL (6.3-8.2)
[2025-09-09] MEDS: CENTRAL LINE FLUSH 10 ML IV PUSH ×3 (05:32→20:53)
[2025-09-09] MEDS: CEFEPIME 2 GM in SODIUM CHLORIDE 0.9% IV 50 ML 100 ML IVPB (08:45)
[2025-09-09] MEDS: MUPIROCIN 2% OINT 22 GM TUBE 1 APPLIC EACH NARE ×2 (08:45→20:52)
[2025-09-09] MEDS: DEXTROSE 5% 1,000 ML 1,000 ML 50 ML IV CONT (11:26)
[2025-09-09] MEDS: SOD HYPOCHLORITE 1/4 STRENGTH 473 ML 1 APPLIC TOPICAL (11:27)
--- NOTE | 2025-09-09 11:31 | PCNFU ---
Nutrition Follow-Up Complete: Severe Protein Calorie Malnutrition as related to inadequate protein energy intake with increased protein-energy needs in setting of chronic disease as evidenced by minimal oral intake for > 1-2 months; significant weight loss of 27 ibs (17%) in 1 month; severe subcutaneous fat loss (orbital fat pads) and severe muscle wasting (temporalis, clavicle). Meet estimated nutritional needs - Not progressing. Continue current goal Goal: Pt current nutrition is NPO (day 4) related to swallowing difficulty. Nutrition recommendation: TPN until pt's swallow can be evaluated. Clinmix E 5/15 with lipids @ goal rate 60 ml/h Last recorded weight is 58.1 kg. Bowel Motility: +1 BM 11.4 Labs Reviewed: Hgb 10.3, Hct 33.7, Alb 3.0, Na 151, BUN 25, Cre 0.62, Mag 2.4 Meds Noted: D5 Skin: Multiple pressure injuries including unstageable to sacrum. Additional Notes: Pt is NPO per speech, not alert enough for MBS yesterday, Plan is to re-evaluate swallow on Friday. Recommend short-term TPN as pt already has central line. NPO day 4 in the setting of severe malnutrition. Recommend Clinmix 5/15 with lipids @ 60 ml/h provides 1522 kcal, 72 g protien, 1690 ml total volume. Meeting needs @ 26 kcal/kg, 1.2 g protein/kg. Adequate for short term needs. Discussed with MD who will speak to family Will monitor weight, labs, skin, diet orders, meds every 3 days.
--- NOTE | 2025-09-09 13:20 | P.PNUR_ITS ---
Progress Note: A&P Assessment and Plan (1) Gross hematuria: Code(s): R31.0 - Gross hematuria Status: Acute Assessment and Plan: - urine clear yellow. - CBI: turn off. if urine resumes bleeding then restart. - Trend Hgb, went up slightly today and is 10.3 today - Continue broad spectrum Abx - Urine culture pending. Culture driven antibiotics per primary service. - Pt with PE needing anticoagulation, however, continues to have significant gross hematuria. Defer to hospitalist team to determine risks vs benefits of AC use for known PEs. Subjective Subjective Date/Time Seen: 09/09/25 13:20 Interval history: 69 y/o M with PMH of multiple sclerosis, COPD, bedbound, and decubitus ulcer presents here with altered mental status. The patient presents here from a local intermediate on 09/06 for further evaluation of altered mental status. HPI obtained through chart review, EMS report, ED provider report, and family report as the patient is altered. Per EMS, they were not provided with much information about the patient beyond that he was more altered than usual. Per chart review, the patient was recently admitted here from 07/26/2025 to 08/11/2025 for altered mental status, sepsis (UTI and/or decubitus ulcer), decubitus ulcer to the sacrum, left heel, and right lateral foot. He underwent a sharp excisional debridement of his stage IV sacral decubitus ulcer on 07/27/2025. During his stay he had acute respiratory distress which was felt to be secondary to a CHF exacerbation for which he was gently diuresed, echo showed grade 1 diastolic dysfunction with a preserved EF. Patient's altered mental status was contributed to metabolic encephalopathy, may have been exacerbated by a B12/vitamin-D deficiency. Patient also developed a postop ileus for which he was treated with MiraLax and Senokot. Patient was also evaluated by Infectious Disease due to his urine culture growing Nehal orthopsilosis, however the did not feel it with pathogenic at that time. CTA of the chest/abdomen/pelvis showed a filling defect of the right upper and middle lobe segmental and subsegmental pulmonary artery consistent with pulmonary embolism with small thrombus burden, interval development of extensive mural thickening and enhancement within the bladder wall consistent with cystitis with no evidence of bladder fistula and Mondragon catheter present, extensive subcutaneous edema with small volume of ascites consistent with anasarca. 09/09/2025: Patient doing well and comfortable in bed. Patient communicated with me today. he is hard of hearing. no acute distress. Review of Systems Review of Systems: All systems reviewed & are unremarkable except as noted in HPI and below ROS unobtainable: Yes unobtainable due to medical condition Exam Const: Other: Pt laying in bed, responsive to questions HENMT: Mouth: Yes dry mucous membranes Eyes: General: appearance normal, both eyes and all related structures Resp: Effort & Inspection: normal respiratory effort Urinary Catheter: Urinary Catheter: patent and draining and urine clear Skin: General skin exam: normal color Other: pale Psych: Speech and movement: No Normal speech and movement present Objective Data Vital Signs Vital Signs: Vital Signs - 24 hr 09/08/25 14:00 09/08/25 15:45 09/08/25 16:00 Temperature 98.3 F Pulse Rate 93 88 87 Respiratory Rate 20 Blood Pressure 148/68 H Pulse Oximetry 95 Oxygen Delivery Oxygen Flow Rate Fraction of Inspired Oxygen 09/08/25 19:54 09/08/25 20:00 09/08/25 20:00 Temperature 98.2 F Pulse Rate 70 104 H 104 H Respiratory Rate 20 20 Blood Pressure 138/80 Pulse Oximetry 90 90 Oxygen Delivery Nasal Cannula Oxygen Flow Rate 2 Fraction of Inspired Oxygen 36 09/08/25 21:27 09/08/25 22:00 09/08/25 23:21 Temperature 98.2 F Pulse Rate 94 94 Respiratory Rate 20 Blood Pressure 122/77 Pulse Oximetry 96 96 Oxygen Delivery Nasal Cannula Oxygen Flow Rate 2 Fraction of Inspired Oxygen 09/09/25 00:00 09/09/25 00:00 09/09/25 01:52 Temperature Pulse Rate 90 90 92 Respiratory Rate 20 Blood Pressure Pulse Oximetry 96 Oxygen Delivery Nasal Cannula Oxygen Flow Rate 2 Fraction of Inspired Oxygen 36 09/09/25 04:00 09/09/25 04:00 09/09/25 04:13 Temperature 98.2 F Pulse Rate 80 80 100 Respiratory Rate 20 20 Blood Pressure 119/74 Pulse Oximetry 95 95 Oxygen Delivery Nasal Cannula Oxygen Flow Rate 2 Fraction of Inspired Oxygen 36 09/09/25 05:31 09/09/25 07:42 09/09/25 08:00 Temperature 97.4 F L Pulse Rate 85 82 Respiratory Rate 21 H Blood Pressure 129/64 Pulse Oximetry 91 93 Oxygen Delivery Nasal Cannula Oxygen Flow Rate 2 Fraction of Inspired Oxygen 09/09/25 08:00 09/09/25 08:00 09/09/25 10:00 Temperature Pulse Rate 84 79 Respiratory Rate Blood Pressure Pulse Oximetry 95 Oxygen Delivery Nasal Cannula Oxygen Flow Rate 2 Fraction of Inspired Oxygen 09/09/25 11:48 09/09/25 12:00 09/09/25 12:00 Temperature 98.4 F Pulse Rate 94 88 Respiratory Rate 21 H Blood Pressure 125/77 Pulse Oximetry 97 97 Oxygen Delivery Nasal Cannula Oxygen Flow Rate 2 Fraction of Inspired Oxygen Intake/Output Intake/Output: Intake & Output 09/06/25 09/07/25 09/08/25 09/09/25 23:59 23:59 23:59 23:59 Intake Total 8200 3970 400 50 Output Total 9100 6825 1225 700 [facility] [phone] Meds/Results Medications: Active Medications Generic Name Dose Route Start Last Admin Trade Name Freq PRN Reason Stop Dose Admin Acetaminophen 650 mg 09/06/25 18:10 Acetaminophen 650 Mg Suppository RECTAL Q6H PRN Mild Pain (1-3) or Fever Albuterol/Ipratropium 3 ml 09/06/25 18:09 Ipratropium 0.5 Mg/Albuterol Sulfate 2.5 Mg (Base) Ampul.Neb 3 Ml INHALATION Q6HRT PRN copd Alteplase, Recombinant 2 mg 09/06/25 18:10 09/07/25 05:56 Alteplase 2 Mg Vial (Cathflo) IV PUSH 2 mg ONCE PRN Administration Line Occlusion Dextrose 12.5 gm 09/06/25 18:09 Dextrose 50% 25 Gm/50 Ml Syringe IV PUSH PRN PRN Hypoglycemia Protocol Glucagon 1 mg 09/06/25 18:09 Glucagon For Inj 1 Mg Vial IM PRN PRN Hypoglycemia Protocol Glucose 15 gm 09/06/25 18:09 Glucose Oral Gel 15 Gm Of Glucse In 37.5 Gm Tube PO PRN PRN Hypoglycemia Protocol Dextrose 1,000 mls @ 100 mls/hr 09/06/25 18:09 Dextrose 5% 1,000 Ml IVPB PRN PRN Hypoglycemia Protocol Cefepime HCl 2 gm/ Sodium 50 mls @ 100 mls/hr 09/07/25 09:00 09/09/25 09:15 Chloride IVPB Infused Q12H MICAH Infusion Dextrose 1,000 mls @ 50 mls/hr 09/09/25 09:00 09/09/25 11:26 Dextrose 5% 1,000 Ml IV CONT 50 mls/hr .Q20H MICAH Administration Mupirocin 1 applic 09/07/25 09:00 09/09/25 08:45 Mupirocin 2% Oint 22 Gm Tube EACH NARE 09/11/25 21:01 1 applic Q12HR MICAH Administration Sodium Chloride 10 ml 09/07/25 14:00 09/09/25 05:32 Central Line Flush IV PUSH 10 ml Q8HR MICAH Administration Sodium Chloride 20 ml 09/07/25 10:44 Central Line Flush IV PUSH PRN PRN after blood draws Sodium Hypochlorite 1 applic 09/07/25 14:00 09/09/25 11:27 Sod Hypochlorite 1/4 Strength 473 Ml TOPICAL 1 applic DAILY MICAH Administration Radiology Results: ITS Impressions Chest X-Ray 09/06/25 12:50 Impression: No acute cardiopulmonary abnormality. Chest/Abdomen/Pelvis CTA 09/06/25 14:07 IMPRESSION: 1. Filling defect right upper and middle lobe segmental and subsegmental pulmonary artery consistent with pulmonary embolism, small thrombus burden. 2: Interval development of extensive mural thickening and enhancement within the bladder wall, consistent with cystitis. No evidence for bladder fistula. Mondragon catheter present. 3: Extensive subcutaneous edema with small volume of ascites, consistent with anasarca. Dr. Tariq Rivero discussed with Dr. Hector Pritchard MD at 09/06/2025 14:17 NOTE KEEPER. Renal Ultrasound 09/06/25 21:28 IMPRESSION: There is a Mondragon catheter within the bladder. Left renal cyst measures 2 cm. Venous Doppler Study 09/07/25 14:37 Impression: Negative for DVT. Labs Labs: Laboratory Results - last 24 hr 09/08/25 09/08/25 09/08/25 13:18 18:19 21:33 WBC RBC Hgb Hct MCV MCH MCHC RDW Plt Count MPV % Immature Plt Fraction Sodium Potassium 2.9 L 2.9 L Chloride Carbon Dioxide Anion Gap BUN Creatinine Estim Creat Clear Calc Estimated GFR Glucose POC Capillary Glucose 108 H Calcium Phosphorus Magnesium 2.4 H Iron 30 L TIBC 124 L % Saturation 24 Ferritin 540.00 H Total Bilirubin AST ALT Alkaline Phosphatase Total Protein Albumin Vitamin B12 521.0 Folate 6.3 09/08/25 09/09/25 23:40 04:01 WBC 15.2 H RBC 3.58 L Hgb 10.3 L Hct 33.7 L MCV 94.1 MCH 28.8 MCHC 30.6 L RDW 17.1 H Plt Count 118 L MPV 11.8 H % Immature Plt Fraction 7.0 Sodium 151 H Potassium 3.7 Chloride 122 H Carbon Dioxide 23 Anion Gap 6 BUN 24 H Creatinine 0.62 L Estim Creat Clear Calc 86 Estimated GFR > 60 Glucose 109 POC Capillary Glucose 110 H Calcium 8.4 Phosphorus 2.5 Magnesium 2.4 H Iron TIBC % Saturation Ferritin Total Bilirubin 0.7 AST 38 ALT 16 Alkaline Phosphatase 63 Total Protein 5.6 L Albumin 3.0 L Vitamin B12 Folate
--- NOTE | 2025-09-09 14:57 | PM.IMPN ---
Progress Note: A&P Assessment and Plan (1) Septic shock: Code(s): A41.9 - Sepsis, unspecified organism; R65.21 - Severe sepsis with septic shock Status: Acute Assessment and Plan: Sepsis secondary to UTI. Uterine present with significant hematuria, which appears to be clearing up. With history of Nehal UTI. Blood blood culture positive for Gram-negative rods, confirmed to be Proteus with susceptibility to ceftriaxone. Out of sepsis at this time. Change cefepime to Ceftriaxone to complete 7 days (2) Pulmonary embolism: Code(s): I26.99 - Other pulmonary embolism without acute cor pulmonale Status: Acute Assessment and Plan: CTA confirmed PE. In light of significant hematuria anticoagulation will be held. Depending on how he does he may need a tPA candidate for AA anticoagulation and may need IVC filter. Will see if urine clears and will start heparin drip if hematuria resolves. Echo: No LA thrombus Venous doppler: negative for DVT 09/08: Repeat UA shows 3+ blood. Hematology agrees with assessment of holding anticoagulation given active gross hematuria and clot burden on CT. Also does not consider need for IVC filter at this time as patient is active PE no DVT. 09/09: Given hematuria is only starting to improve, will likely defer anticoagulation 1-3 more days to ensure hematuria is completely resolved before restarting anticoagulation (3) CHELSEA (acute kidney injury): Code(s): N17.9 - Acute kidney failure, unspecified Status: Resolved Assessment and Plan: Secondary to sepsis hypotension and hypovolemia Renal function improved with IV fluids Creatinine now normalized Monitor urine output electrolytes and creatinine (4) Acute hemorrhagic cystitis: Code(s): N30.01 - Acute cystitis with hematuria Status: Acute Assessment and Plan: Associated with UTI Urology has been consulted-deferring anticoagulation to hospitalist team. Hematuria is starting to clear up, Urology has turned off CBI to resume hematuria reoccurs. (5) COPD (chronic obstructive pulmonary disease): Qualifiers: COPD type: unspecified COPD Qualified Code(s): J44.9 - Chronic obstructive pulmonary disease, unspecified Code(s): J44.9 - Chronic obstructive pulmonary disease, unspecified Status: Chronic Assessment and Plan: Bronchodilators p.r.n. (6) Hypokalemia: Code(s): E87.6 - Hypokalemia Status: Acute Assessment and Plan: Drop in potassium on 09/08, potassium was repleted, magnesium level was checked and also 1 g magnesium sulfate was administered to assist with repletion of potassium. Most likely causes due to poor oral intake as patient is currently NPO due to significant swallowing difficulties, he is refusing NG tube at this time. Spoke with patient's daughter Odalys, who agrees for TPN at this time. Will continue to trend potassium levels and replete as needed TPN to replete electrolytes (7) Failure to thrive in adult: Code(s): R62.7 - Adult failure to thrive Status: Acute Assessment and Plan: Patient has been NPO since transfer from ICU. Per patient's daughter Odalys, he has been having significant issues with swallowing in the time just prior to admission. Could be due to significant weakness secondary to sepsis/septic shock with or without element of MS the patient has history of. Given feeding has been very difficult, electrolyte imbalance issues for the past day could be attributed to this. Options for feeding or NG tube placement which patient was continuously refusing or TPN. After discussing with the patient's daughter who is power of research attorney, she agrees for TPN at this time. TPN to be started Regular monitoring of labs ordered with TPN order set (8) Positive result for methicillin resistant Staphylococcus aureus (MRSA) screening: Code(s): Z22.322 - Carrier or suspected carrier of Methicillin resistant Staphylococcus aureus Status: Acute Assessment and Plan: Contact isolation precautions (9) Pressure ulcers of skin of multiple topographic sites: Code(s): L89.90 - Pressure ulcer of unspecified site, unspecified stage Status: Acute Assessment and Plan: Pressure ulcers on sacrum, left hip, bilateral heels, bilateral ankles. Wound care is on board Management per Wound Care Plan Patient is refusing NG tube for feeding. TPN for diet Not on anticoagulation due to hematuria Subjective Date/time seen: 09/09/25 14:57 Interval history: 69 y/o M with PMH of multiple sclerosis, COPD, bedbound, and decubitus ulcer presents here with altered mental status. The patient presents here from a local assisted on 09/06 for further evaluation of altered mental status. HPI obtained through chart review, EMS report, ED provider report, and family report as the patient is altered. Per EMS, they were not provided with much information about the patient beyond that he was more altered than usual. Per chart review, the patient was recently admitted here from 07/26/2025 to 08/11/2025 for altered mental status, sepsis (UTI and/or decubitus ulcer), decubitus ulcer to the sacrum, left heel, and right lateral foot. He underwent a sharp excisional debridement of his stage IV sacral decubitus ulcer on 07/27/2025. During his stay he had acute respiratory distress which was felt to be secondary to a CHF exacerbation for which he was gently diuresed, echo showed grade 1 diastolic dysfunction with a preserved EF. Patient's altered mental status was contributed to metabolic encephalopathy, may have been exacerbated by a B12/vitamin-D deficiency. Patient also developed a postop ileus for which he was treated with MiraLax and Senokot. Patient was also evaluated by Infectious Disease due to his urine culture growing Nehal orthopsilosis, however the did not feel it with pathogenic at that time. Initial VS at presentation: 99.2? F (now 100.4? F), HR 135, RR 26, 89/62, and 96% on RA. ED workup showed: WBC 36.5, initial hemoglobin 11.6 (11.9 on 09/03), normal coags, creatinine 2.31 and GFR 28 (previously 0.5 and GFR >60 on 09/03), lactic 5.3, calcium 7.9 in the setting of an albumin of 3.0, CRP 6.3. Mondragon replaced and patient had annette blood, so unable to obtain UA at time of admission. CXR showed no acute cardiopulmonary abnormality. CTA of the chest/abdomen/pelvis showed a filling defect of the right upper and middle lobe segmental and subsegmental pulmonary artery consistent with pulmonary embolism with small thrombus burden, interval development of extensive mural thickening and enhancement within the bladder wall consistent with cystitis with no evidence of bladder fistula and Mondragon catheter present, extensive subcutaneous edema with small volume of ascites consistent with anasarca. Review of Systems Review of Systems: All systems reviewed & are unremarkable except as noted in HPI and below ROS unobtainable: Yes unobtainable due to medical condition Exam Const: Other: Pt laying in bed, responsive to questions HENMT: Mouth: Yes dry mucous membranes Eyes: General: appearance normal, both eyes and all related structures Resp: Effort & Inspection: normal respiratory effort Urinary Catheter: Urinary Catheter: patent and draining and urine clear Skin: General skin exam: normal color Other: Sacral, left hip, bilateral heels, bilateral ankle pressure ulcers Neuro: Other: AAO x3 Psych: Speech and movement: No Normal speech and movement present Objective Data Vital Signs Vital Signs: Vital Signs - 24 hr 09/08/25 15:45 09/08/25 16:00 09/08/25 19:54 Temperature 98.3 F 98.2 F Pulse Rate 88 87 70 Respiratory Rate 20 20 Blood Pressure 148/68 H 138/80 Pulse Oximetry 95 90 Oxygen Delivery Oxygen Flow Rate Fraction of Inspired Oxygen 09/08/25 20:00 09/08/25 20:00 09/08/25 21:27 Temperature Pulse Rate 104 H 104 H Respiratory Rate 20 Blood Pressure Pulse Oximetry 90 96 Oxygen Delivery Nasal Cannula Nasal Cannula Oxygen Flow Rate 2 2 Fraction of Inspired Oxygen 36 09/08/25 22:00 09/08/25 23:21 09/09/25 00:00 Temperature 98.2 F Pulse Rate 94 94 90 Respiratory Rate 20 20 Blood Pressure 122/77 Pulse Oximetry 96 96 Oxygen Delivery Nasal Cannula Oxygen Flow Rate 2 Fraction of Inspired Oxygen 36 09/09/25 00:00 09/09/25 01:52 09/09/25 04:00 Temperature Pulse Rate 90 92 80 Respiratory Rate 20 Blood Pressure Pulse Oximetry 95 Oxygen Delivery Nasal Cannula Oxygen Flow Rate 2 Fraction of Inspired Oxygen 36 09/09/25 04:00 09/09/25 04:13 09/09/25 05:31 Temperature 98.2 F Pulse Rate 80 100 85 Respiratory Rate 20 Blood Pressure 119/74 Pulse Oximetry 95 Oxygen Delivery Oxygen Flow Rate Fraction of Inspired Oxygen 09/09/25 07:42 09/09/25 08:00 09/09/25 08:00 Temperature 97.4 F L Pulse Rate 82 84 Respiratory Rate 21 H Blood Pressure 129/64 Pulse Oximetry 91 93 Oxygen Delivery Nasal Cannula Oxygen Flow Rate 2 Fraction of Inspired Oxygen 09/09/25 08:00 09/09/25 10:00 09/09/25 11:48 Temperature 98.4 F Pulse Rate 79 94 Respiratory Rate 21 H Blood Pressure 125/77 Pulse Oximetry 95 97 Oxygen Delivery Nasal Cannula Oxygen Flow Rate 2 Fraction of Inspired Oxygen 09/09/25 12:00 09/09/25 12:00 09/09/25 14:00 Temperature Pulse Rate 88 82 Respiratory Rate Blood Pressure Pulse Oximetry 97 Oxygen Delivery Nasal Cannula Oxygen Flow Rate 2 Fraction of Inspired Oxygen Intake/Output Intake/Output: Intake & Output 09/06/25 09/07/25 09/08/25 09/09/25 23:59 23:59 23:59 23:59 Intake Total 8200 3970 400 750 Output Total 9100 6825 1225 700 Balance -862 -2225 -825 50 Meds/Results Medications: Active Medications Generic Name Dose Route Start Last Admin Trade Name Freq PRN Reason Stop Dose Admin Acetaminophen 650 mg 09/06/25 18:10 Acetaminophen 650 Mg Suppository RECTAL Q6H PRN Mild Pain (1-3) or Fever Albuterol/Ipratropium 3 ml 09/06/25 18:09 Ipratropium 0.5 Mg/Albuterol Sulfate 2.5 Mg (Base) Ampul.Neb 3 Ml INHALATION Q6HRT PRN copd Alteplase, Recombinant 2 mg 09/06/25 18:10 09/07/25 05:56 Alteplase 2 Mg Vial (Cathflo) IV PUSH 2 mg ONCE PRN Administration Line Occlusion Dextrose 12.5 gm 09/06/25 18:09 Dextrose 50% 25 Gm/50 Ml Syringe IV PUSH PRN PRN Hypoglycemia Protocol Glucagon 1 mg 09/06/25 18:09 Glucagon For Inj 1 Mg Vial IM PRN PRN Hypoglycemia Protocol Glucose 15 gm 09/06/25 18:09 Glucose Oral Gel 15 Gm Of Glucse In 37.5 Gm Tube PO PRN PRN Hypoglycemia Protocol Dextrose 1,000 mls @ 100 mls/hr 09/06/25 18:09 Dextrose 5% 1,000 Ml IVPB PRN PRN Hypoglycemia Protocol Dextrose 1,000 mls @ 50 mls/hr 09/09/25 09:00 09/09/25 11:26 Dextrose 5% 1,000 Ml IV CONT 50 mls/hr .Q20H MICAH Administration Dextrose 1,000 mls @ 50 mls/hr 09/09/25 13:59 Dextrose 10% IV CONT .Q20H PRN if PN is interrupted Multivitamins 1.25 ml/ 1,002.5 mls @ 40 mls/hr 09/09/25 15:00 Multivitamins 1.25 ml/ Amino IV CONT Acids/Electrolytes/Dextrose .Q24H MICAH Protocol Fat Emulsion Intravenous 250 mls @ 20.833 mls/hr 09/10/25 15:00 Lipids 20% IVPB Q24H MICAH Ceftriaxone Sodium 2 gm/ 100 mls @ 200 mls/hr 09/09/25 15:00 Sodium Chloride IVPB 09/12/25 15:29 Q24H MICAH Insulin Human Regular 0 units 09/09/25 18:00 Insulin Human Regular (*Bkc) 100 Units/Ml SUB-Q Q6HR [facility] Protocol Mupirocin 1 applic 09/07/25 09:00 09/09/25 08:45 Mupirocin 2% Oint 22 Gm Tube EACH NARE 09/11/25 21:01 1 applic Q12HR MICAH Administration Sodium Chloride 10 ml 09/07/25 14:00 09/09/25 13:31 Central Line Flush IV PUSH 10 ml Q8HR MICAH Administration Sodium Chloride 20 ml 09/07/25 10:44 Central Line Flush IV PUSH PRN PRN after blood draws Sodium Hypochlorite 1 applic 09/07/25 14:00 09/09/25 11:27 Sod Hypochlorite 1/4 Strength 473 Ml TOPICAL 1 applic DAILY MICAH Administration Radiology Results: ITS Impressions Chest X-Ray 09/06/25 12:50 Impression: No acute cardiopulmonary abnormality. Chest/Abdomen/Pelvis CTA 09/06/25 14:07 IMPRESSION: 1. Filling defect right upper and middle lobe segmental and subsegmental pulmonary artery consistent with pulmonary embolism, small thrombus burden. 2: Interval development of extensive mural thickening and enhancement within the bladder wall, consistent with cystitis. No evidence for bladder fistula. Mondragon catheter present. 3: Extensive subcutaneous edema with small volume of ascites, consistent with anasarca. Dr. Tariq iRvero discussed with Dr. Hectro Pritchard MD at 09/06/2025 14:17 [employer]. Renal Ultrasound 09/06/25 21:28 IMPRESSION: There is a Mondragon catheter within the bladder. Left renal cyst measures 2 cm. Venous Doppler Study 09/07/25 14:37 Impression: Negative for DVT. Labs Labs: Laboratory Results - last 24 hr 09/08/25 09/08/25 09/08/25 18:19 21:33 23:40 WBC RBC Hgb Hct MCV MCH MCHC RDW Plt Count MPV % Immature Plt Fraction Sodium Potassium 2.9 L Chloride Carbon Dioxide Anion Gap BUN Creatinine Estim Creat Clear Calc Estimated GFR Glucose POC Capillary Glucose 108 H 110 H Calcium Phosphorus Magnesium Iron 30 L TIBC 124 L % Saturation 24 Ferritin 540.00 H Total Bilirubin AST ALT Alkaline Phosphatase Total Protein Albumin Vitamin B12 521.0 Folate 6.3 09/09/25 04:01 WBC 15.2 H RBC 3.58 L Hgb 10.3 L Hct 33.7 L MCV 94.1 MCH 28.8 MCHC 30.6 L RDW 17.1 H Plt Count 118 L MPV 11.8 H % Immature Plt Fraction 7.0 Sodium 151 H Potassium 3.7 Chloride 122 H Carbon Dioxide 23 Anion Gap 6 BUN 24 H Creatinine 0.62 L Estim Creat Clear Calc 86 Estimated GFR > 60 Glucose 109 POC Capillary Glucose Calcium 8.4 Phosphorus 2.5 Magnesium 2.4 H Iron TIBC % Saturation Ferritin Total Bilirubin 0.7 AST 38 ALT 16 Alkaline Phosphatase 63 Total Protein 5.6 L Albumin 3.0 L Vitamin B12 Folate Quality If No VTE Prophylaxis Answer both mechanical and pharmacologic: Reason no mechanical VTE proph: medical contraindication Reason no pharmacologic proph: medical contraindication Hospitalist MIPS Advance Care Plan I have confirmed that the patient's Advanced Care Plan is present, code status is documented, or surrogate decision maker is listed in patient medical record.: Yes Medication Reconciliation I have utilized all available resources to obtain, update and review the patients current medications (includes all prescriptions, OTC, herbals, cannabis, and nutritional supplements).: Yes
[2025-09-09] MEDS: AMINO ACIDS 5%/D15W/E-LYTES/CA 1,000 ML with MULTIVITAMINS-12 INJ VIAL 1 1.25 ML, MULTI... 40 ML IV CONT (15:08)
[2025-09-09] MEDS: FAT EMULSIONS IV 20% 250 ML 20.83 ML IVPB (15:09)
[2025-09-09] MEDS: cefTRIAXone 2 GM in SODIUM CHLORIDE 0.9% IV 100 ML 200 ML IVPB (15:25)
[2025-09-09 15:27] LABS: Hematocrit 37.2 % (42.0-52.0); Hemoglobin 11.5 g/dL (14.0-18.0); Mean Corpuscular HGB Conc 30.9 g/dl (32-36); Mean Corpuscular Hemoglobin 29.2 pg (26-34); Mean Corpuscular Volume 94.4 fl (80-100); Platelet Count Result 129 k/mm3 (150-375); Red Blood Count 3.94 M/mm3 (4.6-6.20); White Blood Count 15.9 K/mm3 (4.5-10.0)
[2025-09-09 15:35] LABS: Alanine Aminotransferase 18 U/L (6-50); Albumin Level 3.2 g/dL (3.5-5.1); Alkaline Phosphatase 78 U/L (38-126); Anion Gap 9 mmol/L (4-12); Aspartate Amino Transferase 30 U/L (17-59); Bilirubin,Total 0.7 mg/dL (0.2-1.3); Blood Urea Nitrogen 25 mg/dL (9-20); Calcium 8.8 mg/dL (8.4-10.2); Carbon Dioxide 25 mmol/L (22-30); Chloride 121 mmol/L (98-107); Estimated CRCL calculation 72 ml/min; Estimated Glomerular Filt Rate > 60; Glucose 129 mg/dL (65-110); Magnesium 2.4 mg/dL (1.6-2.3); Potassium 3.6 mmol/L (3.4-5.0); Sodium 155 mmol/L (137-145); Total Protein 6.0 g/dL (6.3-8.2)
[2025-09-09 15:40] LABS: Partial Thromboplastin Time 31.4 Seconds (22.3-36.8)
[2025-09-09 16:43] LABS: Transferrin 87 mg/dL (206-381)
[2025-09-09 16:46] LABS: Band Neutrophils Percent 2 % (0-6); Lymphocytes Absolute Manual 1.43 K/mm3 (1.1-4.5); Lymphocytes Percent Manual 9 % (18-44); Monocytes Absolute Manual 0.63 K/mm3 (0.1-0.90); Monocytes Percent Manual 4 % (3-9); Neutrophils Absolute Manual 13.83 K/mm3 (1.3-6.7); Neutrophils Percent Manual 85 % (46-73); Total Cells Counted 100
[2025-09-09 16:47] LABS: Anisocytosis 1+; Schistocytes None Seen
[2025-09-10] VITALS (15 sets, daily range): BP systolic 117–141; BP diastolic 65–81; PULSE 68–95; RESP 16–24; TEMP 36.1–36.8; O2SAT 89–100
[2025-09-10 01:16] LABS: Sodium 152 mmol/L (137-145)
[2025-09-10 05:02] LABS: Alanine Aminotransferase 15 U/L (6-50); Albumin Level 2.8 g/dL (3.5-5.1); Alkaline Phosphatase 52 U/L (38-126); Anion Gap 6 mmol/L (4-12); Aspartate Amino Transferase 20 U/L (17-59); Bilirubin,Total 0.4 mg/dL (0.2-1.3); Blood Urea Nitrogen 24 mg/dL (9-20); Calcium 8.5 mg/dL (8.4-10.2); Carbon Dioxide 22 mmol/L (22-30); Chloride 123 mmol/L (98-107); Estimated CRCL calculation 87 ml/min; Estimated Glomerular Filt Rate > 60; Glucose 216 mg/dL (65-110); Magnesium 2.6 mg/dL (1.6-2.3); Potassium 3.3 mmol/L (3.4-5.0); Sodium 151 mmol/L (137-145); Total Protein 5.2 g/dL (6.3-8.2)
[2025-09-10] MEDS: CENTRAL LINE FLUSH 10 ML IV PUSH ×3 (06:22→21:25)
[2025-09-10] MEDS: INSULIN HUMAN REGULAR (*BKC) 100 UNITS/ML SUB-Q ×2 (06:22→12:17)
[2025-09-10 07:38] LABS: Hematocrit 36.3 % (42.0-52.0); Hemoglobin 10.9 g/dL (14.0-18.0); Mean Corpuscular HGB Conc 30.0 g/dl (32-36); Mean Corpuscular Hemoglobin 29.1 pg (26-34); Mean Corpuscular Volume 96.8 fl (80-100); Platelet Count Result 127 k/mm3 (150-375); Red Blood Count 3.75 M/mm3 (4.6-6.20); White Blood Count 14.7 K/mm3 (4.5-10.0)
[2025-09-10] MEDS: SOD HYPOCHLORITE 1/4 STRENGTH 473 ML 1 APPLIC TOPICAL (11:40)
[2025-09-10] MEDS: MUPIROCIN 2% OINT 22 GM TUBE 1 APPLIC EACH NARE ×2 (11:42→21:24)
--- NOTE | 2025-09-10 11:56 | PM.IMPN ---
Progress Note: A&P Assessment and Plan (1) Septic shock: Code(s): A41.9 - Sepsis, unspecified organism; R65.21 - Severe sepsis with septic shock Status: Acute Assessment and Plan: Sepsis secondary to UTI. Uterine present with significant hematuria, which appears to be clearing up. With history of Nehal UTI. Blood blood culture positive for Gram-negative rods, confirmed to be Proteus with susceptibility to ceftriaxone. Out of sepsis at this time. Change cefepime to Ceftriaxone to complete 7 days (2) Pulmonary embolism: Code(s): I26.99 - Other pulmonary embolism without acute cor pulmonale Status: Acute Assessment and Plan: CTA confirmed PE. In light of significant hematuria anticoagulation will be held. Depending on how he does he may need a tPA candidate for AA anticoagulation and may need IVC filter. Will see if urine clears and will start heparin drip if hematuria resolves. Echo: No LA thrombus Venous doppler: negative for DVT 09/08: Repeat UA shows 3+ blood. Hematology agrees with assessment of holding anticoagulation given active gross hematuria and clot burden on CT. Also does not consider need for IVC filter at this time as patient is active PE no DVT. 09/09: Given hematuria is only starting to improve, will likely defer anticoagulation 1-3 more days to ensure hematuria is completely resolved before restarting anticoagulation (3) CHELSEA (acute kidney injury): Code(s): N17.9 - Acute kidney failure, unspecified Status: Resolved Assessment and Plan: Secondary to sepsis hypotension and hypovolemia Renal function improved with IV fluids Creatinine now normalized Monitor urine output electrolytes and creatinine (4) Acute hemorrhagic cystitis: Code(s): N30.01 - Acute cystitis with hematuria Status: Acute Assessment and Plan: Associated with UTI Urology has been consulted-deferring anticoagulation to hospitalist team. Hematuria is starting to clear up, Urology has turned off CBI to resume hematuria reoccurs. (5) COPD (chronic obstructive pulmonary disease): Qualifiers: COPD type: unspecified COPD Qualified Code(s): J44.9 - Chronic obstructive pulmonary disease, unspecified Code(s): J44.9 - Chronic obstructive pulmonary disease, unspecified Status: Chronic Assessment and Plan: Bronchodilators p.r.n. (6) Hypokalemia: Code(s): E87.6 - Hypokalemia Status: Acute Assessment and Plan: Drop in potassium on 09/08, potassium was repleted, magnesium level was checked and also 1 g magnesium sulfate was administered to assist with repletion of potassium. Most likely causes due to poor oral intake as patient is currently NPO due to significant swallowing difficulties, he is refusing NG tube at this time. Spoke with patient's daughter Odalys, who agrees for TPN at this time. Will continue to trend potassium levels and replete as needed TPN to replete electrolytes (7) Failure to thrive in adult: Code(s): R62.7 - Adult failure to thrive Status: Acute Assessment and Plan: Patient has been NPO since transfer from ICU. Per patient's daughter Odalys, he has been having significant issues with swallowing in the time just prior to admission. Could be due to significant weakness secondary to sepsis/septic shock with or without element of MS the patient has history of. Given feeding has been very difficult, electrolyte imbalance issues for the past day could be attributed to this. Options for feeding or NG tube placement which patient was continuously refusing or TPN. After discussing with the patient's daughter who is power of assistant prosecuting attorney, she agrees for TPN at this time. TPN started- monitor for refeeding syndrome: Hypomagnesemia, severe hypophosphatemia, hypokalemia. Hypokalemia was noted today, but mild without other findings. Regular monitoring of labs ordered with TPN order set (8) Positive result for methicillin resistant Staphylococcus aureus (MRSA) screening: Code(s): Z22.322 - Carrier or suspected carrier of Methicillin resistant Staphylococcus aureus Status: Acute Assessment and Plan: Contact isolation precautions (9) Pressure ulcers of skin of multiple topographic sites: Code(s): L89.90 - Pressure ulcer of unspecified site, unspecified stage Status: Acute Assessment and Plan: Pressure ulcers on sacrum, left hip, bilateral heels, bilateral ankles. Wound care is on board Management per Wound Care (10) Hypernatremia: Code(s): E87.0 - Hyperosmolality and hypernatremia Status: Acute Assessment and Plan: 09/09: Hypernatremia has been noted, 149 > 151 > 155. Dehydration as patient has been NPO is most likely cause. 09/10: Na 151 now, TPN was started. Continuing to monitor Na regularly. Plan Patient is refusing NG tube for feeding. TPN for diet Not on anticoagulation due to hematuria Consider restarting anticoagulation if urine remains clear. Subjective Date/time seen: 09/10/25 11:56 Interval history: 69 y/o M with PMH of multiple sclerosis, COPD, bedbound, and decubitus ulcer presents here with altered mental status. The patient presents here from a local half-way on 09/06 for further evaluation of altered mental status. HPI obtained through chart review, EMS report, ED provider report, and family report as the patient is altered. Per EMS, they were not provided with much information about the patient beyond that he was more altered than usual. Per chart review, the patient was recently admitted here from 07/26/2025 to 08/11/2025 for altered mental status, sepsis (UTI and/or decubitus ulcer), decubitus ulcer to the sacrum, left heel, and right lateral foot. He underwent a sharp excisional debridement of his stage IV sacral decubitus ulcer on 07/27/2025. During his stay he had acute respiratory distress which was felt to be secondary to a CHF exacerbation for which he was gently diuresed, echo showed grade 1 diastolic dysfunction with a preserved EF. Patient's altered mental status was contributed to metabolic encephalopathy, may have been exacerbated by a B12/vitamin-D deficiency. Patient also developed a postop ileus for which he was treated with MiraLax and Senokot. Patient was also evaluated by Infectious Disease due to his urine culture growing Enhal orthopsilosis, however the did not feel it with pathogenic at that time. Initial VS at presentation: 99.2? F (now 100.4? F), HR 135, RR 26, 89/62, and 96% on RA. ED workup showed: WBC 36.5, initial hemoglobin 11.6 (11.9 on 09/03), normal coags, creatinine 2.31 and GFR 28 (previously 0.5 and GFR >60 on 09/03), lactic 5.3, calcium 7.9 in the setting of an albumin of 3.0, CRP 6.3. Mondragon replaced and patient had annette blood, so unable to obtain UA at time of admission. CXR showed no acute cardiopulmonary abnormality. CTA of the chest/abdomen/pelvis showed a filling defect of the right upper and middle lobe segmental and subsegmental pulmonary artery consistent with pulmonary embolism with small thrombus burden, interval development of extensive mural thickening and enhancement within the bladder wall consistent with cystitis with no evidence of bladder fistula and Mondragon catheter present, extensive subcutaneous edema with small volume of ascites consistent with anasarca. Review of Systems Review of Systems: All systems reviewed & are unremarkable except as noted in HPI and below ROS unobtainable: Yes unobtainable due to medical condition Exam Const: Other: Pt laying in bed, responsive to questions HENMT: Mouth: Yes dry mucous membranes Eyes: General: appearance normal, both eyes and all related structures Neck: Other: L IJ in place Resp: Effort & Inspection: normal respiratory effort Urinary Catheter: Urinary Catheter: patent and draining and urine clear Skin: General skin exam: normal color Other: Sacral, left hip, bilateral heels, bilateral ankle pressure ulcers Neuro: Other: AAO x3 Psych: Speech and movement: No Normal speech and movement present Objective Data Vital Signs Vital Signs: Vital Signs - 24 hr 09/09/25 12:00 09/09/25 12:00 09/09/25 14:00 Temperature Pulse Rate 88 82 Respiratory Rate Blood Pressure Pulse Oximetry 97 Oxygen Delivery Nasal Cannula Oxygen Flow Rate 2 Fraction of Inspired Oxygen 09/09/25 16:00 09/09/25 16:00 09/09/25 16:00 Temperature 97.9 F Pulse Rate 78 75 Respiratory Rate 23 H Blood Pressure 128/71 Pulse Oximetry 92 92 Oxygen Delivery Nasal Cannula Oxygen Flow Rate 2 Fraction of Inspired Oxygen 09/09/25 18:00 09/09/25 20:00 09/09/25 20:00 Temperature 97.6 F Pulse Rate 77 82 77 Respiratory Rate 20 20 Blood Pressure 154/89 H Pulse Oximetry 96 96 Oxygen Delivery Nasal Cannula Oxygen Flow Rate 2 Fraction of Inspired Oxygen 36 09/09/25 20:00 09/09/25 20:33 09/09/25 21:49 Temperature Pulse Rate 77 85 Respiratory Rate Blood Pressure Pulse Oximetry 96 Oxygen Delivery Nasal Cannula Oxygen Flow Rate 2 Fraction of Inspired Oxygen 09/09/25 23:35 09/10/25 00:00 09/10/25 00:00 Temperature 97.7 F Pulse Rate 80 68 77 Respiratory Rate 20 20 Blood Pressure 137/82 Pulse Oximetry 91 91 Oxygen Delivery Nasal Cannula Oxygen Flow Rate 2 Fraction of Inspired Oxygen 36 09/10/25 01:52 09/10/25 03:22 09/10/25 03:22 Temperature Pulse Rate 74 75 75 Respiratory Rate 20 Blood Pressure Pulse Oximetry 91 Oxygen Delivery Nasal Cannula Oxygen Flow Rate 2 Fraction of Inspired Oxygen 36 09/10/25 04:14 09/10/25 06:00 09/10/25 08:00 Temperature 97.9 F 97.8 F Pulse Rate 69 74 68 Respiratory Rate 20 16 Blood Pressure 117/65 124/76 Pulse Oximetry 92 96 Oxygen Delivery Oxygen Flow Rate Fraction of Inspired Oxygen 09/10/25 08:00 09/10/25 11:02 09/10/25 11:52 Temperature 97.0 F L Pulse Rate 71 69 Respiratory Rate 20 Blood Pressure 130/74 Pulse Oximetry 94 100 Oxygen Delivery Nasal Cannula Oxygen Flow Rate 2 Fraction of Inspired Oxygen Intake/Output Intake/Output: Intake & Output 09/07/25 09/08/25 09/09/25 09/10/25 23:59 23:59 23:59 23:59 Intake Total 3970 400 750 250 Output Total 6825 1225 2450 300 Balance -2855 -825 -1700 -50 Meds/Results Medications: Active Medications Generic Name Dose Route Start Last Admin Trade Name Freq PRN Reason Stop Dose Admin Acetaminophen 650 mg 09/06/25 18:10 Acetaminophen 650 Mg Suppository RECTAL Q6H PRN Mild Pain (1-3) or Fever Albuterol/Ipratropium 3 ml 09/06/25 18:09 Ipratropium 0.5 Mg/Albuterol Sulfate 2.5 Mg (Base) Ampul.Neb 3 Ml INHALATION Q6HRT PRN copd Alteplase, Recombinant 2 mg 09/06/25 18:10 09/07/25 05:56 Alteplase 2 Mg Vial (Cathflo) IV PUSH 2 mg ONCE PRN Administration Line Occlusion Dextrose 12.5 gm 09/06/25 18:09 Dextrose 50% 25 Gm/50 Ml Syringe IV PUSH PRN PRN Hypoglycemia Protocol Glucagon 1 mg 09/06/25 18:09 Glucagon For Inj 1 Mg Vial IM PRN PRN Hypoglycemia Protocol Glucose 15 gm 09/06/25 18:09 Glucose Oral Gel 15 Gm Of Glucse In 37.5 Gm Tube PO PRN PRN Hypoglycemia Protocol Dextrose 1,000 mls @ 100 mls/hr 09/06/25 18:09 Dextrose 5% 1,000 Ml IVPB PRN PRN Hypoglycemia Protocol Dextrose 1,000 mls @ 50 mls/hr 09/09/25 13:59 Dextrose 10% IV CONT .Q20H PRN if PN is interrupted Multivitamins 1.25 ml/ 1,002.5 mls @ 40 mls/hr 09/09/25 15:00 09/09/25 15:08 Multivitamins 1.25 ml/ Amino IV CONT 40 mls/hr Acids/Electrolytes/Dextrose .Q24H MICAH Administration Protocol Ceftriaxone Sodium 2 gm/ 100 mls @ 200 mls/hr 09/09/25 15:00 09/09/25 15:25 Sodium Chloride IVPB 09/12/25 15:29 200 mls/hr Q24H MICAH Administration Fat Emulsion Intravenous 250 mls @ 20.833 mls/hr 09/09/25 15:00 09/10/25 03:22 Lipids 20% IVPB Infused Q24H MICAH Infusion Insulin Human Regular 0 units 09/09/25 18:00 09/10/25 06:22 Insulin Human Regular (*Bkc) 100 Units/Ml SUB-Q 2 units Q6HR MICAH Administration Protocol Mupirocin 1 applic 09/07/25 09:00 09/10/25 11:42 Mupirocin 2% Oint 22 Gm Tube EACH NARE 09/11/25 21:01 1 applic Q12HR MICAH Administration Sodium Chloride 10 ml 09/07/25 14:00 09/10/25 06:22 Central Line Flush IV PUSH 10 ml Q8HR MICAH Administration Sodium Chloride 20 ml 09/07/25 10:44 Central Line Flush IV PUSH PRN PRN after blood draws Sodium Hypochlorite 1 applic 09/07/25 14:00 09/10/25 11:40 Sod Hypochlorite 1/4 Strength 473 Ml TOPICAL 1 applic DAILY MICAH Administration Radiology Results: ITS Impressions Chest X-Ray 09/06/25 12:50 Impression: No acute cardiopulmonary abnormality. Chest/Abdomen/Pelvis CTA 09/06/25 14:07 IMPRESSION: 1. Filling defect right upper and middle lobe segmental and subsegmental pulmonary artery consistent with pulmonary embolism, small thrombus burden. 2: Interval development of extensive mural thickening and enhancement within the bladder wall, consistent with cystitis. No evidence for bladder fistula. Mondragon catheter present. 3: Extensive subcutaneous edema with small volume of ascites, consistent with anasarca. Dr. Tariq Rivero discussed with Dr. Hector Pritchard MD at 09/06/2025 14:17 SENIOR TECHNICAL PROGRAM MANAGER. Renal Ultrasound 09/06/25 21:28 IMPRESSION: There is a Mondragon catheter within the bladder. Left renal cyst measures 2 cm. Venous Doppler Study 09/07/25 14:37 Impression: Negative for DVT. Labs Labs: Laboratory Results - last 24 hr 09/09/25 09/09/25 09/09/25 15:15 15:15 15:15 WBC 15.9 H RBC 3.94 L Hgb 11.5 L Hct 37.2 L MCV 94.4 MCH 29.2 MCHC 30.9 L RDW 17.2 H Plt Count 129 L MPV 11.8 H Immature Gran % (Auto) Not Reportable Neut % (Auto) Not Reportable Lymph % (Auto) Not Reportable [place] % (Auto) Not Reportable Eos % (Auto) Not Reportable Baso % (Auto) Not Reportable Lymph # (Auto) Not Reportable [place] # (Auto) Not Reportable Eos # (Auto) Not Reportable Baso # (Auto) Not Reportable Abs Immat Gran (auto) Not Reportable Absolute Neuts (auto) Not Reportable Absolute Nucleated RBC Not Reportable Total Counted 100 Neutrophils % (Manual) 85 H Band Neutrophils % 2 Lymphocytes % (Manual) 9 L Monocytes % (Manual) 4 Nucleated RBC % Not Reportable Abs Neuts (Manual) 13.83 H Abs Lymphs (Manual) 1.43 Abs Monocytes (Manual) 0.63 Platelet Estimate Slightly decreased Anisocytosis 1+ Schistocytes None seen APTT 31.4 Sodium Cancelled 155 H Potassium Cancelled 3.6 Chloride Cancelled Carbon Dioxide Anion Gap BUN Creatinine Estim Creat Clear Calc Estimated GFR Glucose POC Capillary Glucose Calcium Phosphorus Magnesium Transferrin Total Bilirubin AST ALT Alkaline Phosphatase Total Protein Albumin 09/09/25 09/09/25 09/09/25 15:15 15:15 15:15 WBC RBC Hgb Hct MCV MCH MCHC RDW Plt Count MPV Immature Gran % (Auto) Neut % (Auto) Lymph % (Auto) [place] % (Auto) Eos % (Auto) Baso % (Auto) Lymph # (Auto) [place] # (Auto) Eos # (Auto) Baso # (Auto) Abs Immat Gran (auto) Absolute Neuts (auto) Absolute Nucleated RBC Total Counted Neutrophils % (Manual) Band Neutrophils % Lymphocytes % (Manual) Monocytes % (Manual) Nucleated RBC % Abs Neuts (Manual) Abs Lymphs (Manual) Abs Monocytes (Manual) Platelet Estimate Anisocytosis Schistocytes APTT Sodium Potassium Chloride 121 H Carbon Dioxide Cancelled 25 Anion Gap Cancelled 9 BUN Cancelled Creatinine Estim Creat Clear Calc Estimated GFR Glucose POC Capillary Glucose Calcium Phosphorus Magnesium Transferrin Total Bilirubin AST ALT Alkaline Phosphatase Total Protein Albumin 09/09/25 09/09/25 09/09/25 15:15 15:15 15:15 WBC RBC Hgb Hct MCV MCH MCHC RDW Plt Count MPV Immature Gran % (Auto) Neut % (Auto) Lymph % (Auto) [place] % (Auto) Eos % (Auto) Baso % (Auto) Lymph # (Auto) [place] # (Auto) Eos # (Auto) Baso # (Auto) Abs Immat Gran (auto) Absolute Neuts (auto) Absolute Nucleated RBC Total Counted Neutrophils % (Manual) Band Neutrophils % Lymphocytes % (Manual) Monocytes % (Manual) Nucleated RBC % Abs Neuts (Manual) Abs Lymphs (Manual) Abs Monocytes (Manual) Platelet Estimate Anisocytosis Schistocytes APTT Sodium Potassium Chloride Carbon Dioxide Anion Gap BUN 25 H Creatinine Cancelled 0.71 Estim Creat Clear Calc Cancelled 72 Estimated GFR Cancelled Glucose POC Capillary Glucose Calcium Phosphorus Magnesium Transferrin Total Bilirubin AST ALT Alkaline Phosphatase Total Protein Albumin 09/09/25 09/09/25 09/09/25 15:15 15:15 15:15 WBC RBC Hgb Hct MCV MCH MCHC RDW Plt Count MPV Immature Gran % (Auto) Neut % (Auto) Lymph % (Auto) [place] % (Auto) Eos % (Auto) Baso % (Auto) Lymph # (Auto) [place] # (Auto) Eos # (Auto) Baso # (Auto) Abs Immat Gran (auto) Absolute Neuts (auto) Absolute Nucleated RBC Total Counted Neutrophils % (Manual) Band Neutrophils % Lymphocytes % (Manual) Monocytes % (Manual) Nucleated RBC % Abs Neuts (Manual) Abs Lymphs (Manual) Abs Monocytes (Manual) Platelet Estimate Anisocytosis Schistocytes APTT Sodium Potassium Chloride Carbon Dioxide Anion Gap BUN Creatinine Estim Creat Clear Calc Estimated GFR > 60 Glucose Cancelled 129 H POC Capillary Glucose Calcium Cancelled 8.8 Phosphorus Magnesium 2.4 H Transferrin 87 L Total Bilirubin 0.7 AST 30 ALT 18 Alkaline Phosphatase 78 Total Protein 6.0 L Albumin 3.2 L 09/09/25 09/09/25 09/09/25 15:28 18:19 19:06 WBC RBC Hgb Hct MCV MCH MCHC RDW Plt Count MPV Immature Gran % (Auto) Neut % (Auto) Lymph % (Auto) [place] % (Auto) Eos % (Auto) Baso % (Auto) Lymph # (Auto) [place] # (Auto) Eos # (Auto) Baso # (Auto) Abs Immat Gran (auto) Absolute Neuts (auto) Absolute Nucleated RBC Total Counted Neutrophils % (Manual) Band Neutrophils % Lymphocytes % (Manual) Monocytes % (Manual) Nucleated RBC % Abs Neuts (Manual) Abs Lymphs (Manual) Abs Monocytes (Manual) Platelet Estimate Anisocytosis Schistocytes APTT Sodium Potassium Chloride Carbon Dioxide Anion Gap BUN Creatinine Estim Creat Clear Calc Estimated GFR Glucose POC Capillary Glucose 154 H 166 H 169 H Calcium Phosphorus Magnesium Transferrin Total Bilirubin AST ALT Alkaline Phosphatase Total Protein Albumin 09/10/25 09/10/25 09/10/25 00:15 00:16 04:09 WBC RBC Hgb Hct MCV MCH MCHC RDW Plt Count MPV Immature Gran % (Auto) Neut % (Auto) Lymph % (Auto) [place] % (Auto) Eos % (Auto) Baso % (Auto) Lymph # (Auto) [place] # (Auto) Eos # (Auto) Baso # (Auto) Abs Immat Gran (auto) Absolute Neuts (auto) Absolute Nucleated RBC Total Counted Neutrophils % (Manual) Band Neutrophils % Lymphocytes % (Manual) Monocytes % (Manual) Nucleated RBC % Abs Neuts (Manual) Abs Lymphs (Manual) Abs Monocytes (Manual) Platelet Estimate Anisocytosis Schistocytes APTT Sodium 152 H 151 H Potassium 3.3 L Chloride 123 H Carbon Dioxide 22 Anion Gap 6 BUN 24 H Creatinine 0.57 L Estim Creat Clear Calc 87 Estimated GFR > 60 Glucose 216 H POC Capillary Glucose 216 H Calcium 8.5 Phosphorus 2.6 Magnesium 2.6 H Transferrin Total Bilirubin 0.4 AST 20 ALT 15 Alkaline Phosphatase 52 Total Protein 5.2 L Albumin 2.8 L 09/10/25 07:19 WBC 14.7 H RBC 3.75 L Hgb 10.9 L Hct 36.3 L MCV 96.8 MCH 29.1 MCHC 30.0 L RDW 17.1 H Plt Count 127 L MPV 12.4 H Immature Gran % (Auto) Neut % (Auto) Lymph % (Auto) [place] % (Auto) Eos % (Auto) Baso % (Auto) Lymph # (Auto) [place] # (Auto) Eos # (Auto) Baso # (Auto) Abs Immat Gran (auto) Absolute Neuts (auto) Absolute Nucleated RBC Total Counted Neutrophils % (Manual) Band Neutrophils % Lymphocytes % (Manual) Monocytes % (Manual) Nucleated RBC % Abs Neuts (Manual) Abs Lymphs (Manual) Abs Monocytes (Manual) Platelet Estimate Anisocytosis Schistocytes APTT Sodium Potassium Chloride Carbon Dioxide Anion Gap BUN Creatinine Estim Creat Clear Calc Estimated GFR Glucose POC Capillary Glucose Calcium Phosphorus Magnesium Transferrin Total Bilirubin AST ALT Alkaline Phosphatase Total Protein Albumin Hospitalist MIPS Advance Care Plan I have confirmed that the patient's Advanced Care Plan is present, code status is documented, or surrogate decision maker is listed in patient medical record.: Yes Medication Reconciliation I have utilized all available resources to obtain, update and review the patients current medications (includes all prescriptions, OTC, herbals, cannabis, and nutritional supplements).: Yes
[2025-09-10] MEDS: AMINO ACIDS 5%/D15W/E-LYTES/CA 1,000 ML with MULTIVITAMINS-12 INJ VIAL 1 1.25 ML, MULTI... 40 ML IV CONT (15:18)
[2025-09-10] MEDS: FAT EMULSIONS IV 20% 250 ML 20.83 ML IVPB (15:20)
[2025-09-10] MEDS: cefTRIAXone 2 GM in SODIUM CHLORIDE 0.9% IV 100 ML 200 ML IVPB (15:21)
[2025-09-10 15:25] LABS: Triglycerides 167 mg/dL (<150)
[2025-09-11] VITALS (15 sets, daily range): BP systolic 133–145; BP diastolic 70–86; PULSE 68–98; RESP 16–24; TEMP 36.6–36.9; O2SAT 89–100
[2025-09-11] MEDS: CENTRAL LINE FLUSH 10 ML IV PUSH ×3 (06:53→21:29)
[2025-09-11 07:48] LABS: Hematocrit 38.2 % (42.0-52.0); Hemoglobin 11.5 g/dL (14.0-18.0); Mean Corpuscular HGB Conc 30.1 g/dl (32-36); Mean Corpuscular Hemoglobin 29.1 pg (26-34); Mean Corpuscular Volume 96.7 fl (80-100); Platelet Count Result 125 k/mm3 (150-375); Red Blood Count 3.95 M/mm3 (4.6-6.20); White Blood Count 15.2 K/mm3 (4.5-10.0)
[2025-09-11 08:12] LABS: Alanine Aminotransferase 20 U/L (6-50); Albumin Level 2.9 g/dL (3.5-5.1); Alkaline Phosphatase 53 U/L (38-126); Anion Gap 3 mmol/L (4-12); Aspartate Amino Transferase 27 U/L (17-59); Bilirubin,Total 0.6 mg/dL (0.2-1.3); Blood Urea Nitrogen 19 mg/dL (9-20); Calcium 8.5 mg/dL (8.4-10.2); Carbon Dioxide 29 mmol/L (22-30); Chloride 122 mmol/L (98-107); Estimated CRCL calculation 100 ml/min; Estimated Glomerular Filt Rate > 60; Glucose 153 mg/dL (65-110); Magnesium 2.3 mg/dL (1.6-2.3); Potassium 3.1 mmol/L (3.4-5.0); Sodium 154 mmol/L (137-145); Total Protein 5.7 g/dL (6.3-8.2)
[2025-09-11] MEDS: MUPIROCIN 2% OINT 22 GM TUBE 1 APPLIC EACH NARE ×2 (12:00→21:29)
[2025-09-11] MEDS: SOD HYPOCHLORITE 1/4 STRENGTH 473 ML 1 APPLIC TOPICAL (12:00)
[2025-09-11] MEDS: SODIUM CHLORIDE 0.9% IV 1,000 ML 999 ML IV CONT (12:04)
[2025-09-11] MEDS: KCL 40 MEQ/WATER 100 ML 100 ML 25 ML IVPB (12:11)
[2025-09-11] MEDS: cefTRIAXone 2 GM in SODIUM CHLORIDE 0.9% IV 100 ML 200 ML IVPB (15:30)
[2025-09-11] MEDS: AMINO ACIDS 5%/D15W/E-LYTES/CA 1,000 ML with MULTIVITAMINS-12 INJ VIAL 1 1.25 ML, MULTI... 40 ML IV CONT (16:17)
[2025-09-11] MEDS: FAT EMULSIONS IV 20% 250 ML 21 ML IVPB (16:18)
[2025-09-11 17:48] LABS: Anion Gap 2 mmol/L (4-12); Blood Urea Nitrogen 17 mg/dL (9-20); Calcium 8.3 mg/dL (8.4-10.2); Carbon Dioxide 31 mmol/L (22-30); Chloride 121 mmol/L (98-107); Estimated CRCL calculation 89 ml/min; Estimated Glomerular Filt Rate > 60; Glucose 132 mg/dL (65-110); Potassium 3.4 mmol/L (3.4-5.0); Sodium 154 mmol/L (137-145)
[2025-09-12] VITALS (12 sets, daily range): BP systolic 110–146; BP diastolic 61–78; PULSE 65–82; RESP 12–26; TEMP 36.2–36.9; O2SAT 92–100
[2025-09-12 04:52] LABS: Hematocrit 38.2 % (42.0-52.0); Hemoglobin 11.3 g/dL (14.0-18.0); Immature Granulocyte Percent A 1.5 % (0-0.5); Lymphocytes Absolute Auto 2.68 K/mm3 (0.9-3.2); Mean Corpuscular HGB Conc 29.6 g/dl (32-36); Mean Corpuscular Hemoglobin 28.7 pg (26-34); Mean Corpuscular Volume 97.0 fl (80-100); Nucleated Red Blood Cells Absolute Auto 0.000 K/mm3 (0.0-0.012); Nucleated Red Blood Cells Perc 0.0 % (0.0-0.2); Platelet Count Result 144 k/mm3 (150-375); Red Blood Count 3.94 M/mm3 (4.6-6.20); White Blood Count 15.7 K/mm3 (4.5-10.0)
[2025-09-12 05:03] LABS: INR 1.0; Prothrombin Time 13.6 Seconds (11.1-14.7)
[2025-09-12 05:04] LABS: Partial Thromboplastin Time 26.4 Seconds (22.3-36.8)
[2025-09-12 05:17] LABS: Alanine Aminotransferase 41 U/L (6-50); Albumin Level 2.9 g/dL (3.5-5.1); Alkaline Phosphatase 61 U/L (38-126); Anion Gap 3 mmol/L (4-12); Aspartate Amino Transferase 56 U/L (17-59); Bilirubin,Total 0.5 mg/dL (0.2-1.3); Blood Urea Nitrogen 16 mg/dL (9-20); Calcium 8.4 mg/dL (8.4-10.2); Carbon Dioxide 31 mmol/L (22-30); Chloride 119 mmol/L (98-107); Estimated CRCL calculation 102 ml/min; Estimated Glomerular Filt Rate > 60; Glucose 148 mg/dL (65-110); Magnesium 2.3 mg/dL (1.6-2.3); Potassium 3.6 mmol/L (3.4-5.0); Sodium 153 mmol/L (137-145); Total Protein 5.7 g/dL (6.3-8.2)
[2025-09-12 05:25] LABS: Transferrin 108 mg/dL (206-381)
[2025-09-12] MEDS: CENTRAL LINE FLUSH 10 ML IV PUSH ×3 (06:05→21:56)
--- NOTE | 2025-09-12 08:31 | WPDUROPN2 ---
Progress Note: A&P Assessment and Plan (1) Gross hematuria: Code(s): R31.0 - Gross hematuria Status: Acute Assessment and Plan: - Urine clear this AM without gross hematuria or clots; CBI paused recently at the time of interview - Hgb stable at 11.3 - Keep CBI clamped; if urine remains clear may discontinue and downsize catheter (2) Urinary retention: Code(s): R33.9 - Retention of urine, unspecified Status: Acute Assessment and Plan: - Pt using Mondragon catheter chronically - Maintain catheter on discharge (3) UTI (urinary tract infection): Qualifiers: Urinary tract infection type: acute cystitis Hematuria presence: with hematuria Qualified Code(s): N30.01 - Acute cystitis with hematuria Code(s): N39.0 - Urinary tract infection, site not specified Status: Suspected Assessment and Plan: - UCx growing proteus - Continue culture driven Abx Subjective Subjective Date/Time Seen: 09/12/25 08:31 Interval history: NAEO; pt resting comfortably in bed. Mondragon catheter draining clear, yellow urine. Exam Const: General: comfortable and no acute distress Other: Pt laying in bed, responsive to questions Eyes: General: appearance normal, both eyes and all related structures Resp: Effort & Inspection: normal respiratory effort Urinary Catheter: Urinary Catheter: patent and draining and urine clear (yellow, no gross hematuria, no clots) Skin: General skin exam: normal color Psych: Speech and movement: Normal speech and movement present Affect: normal affect Objective Data Vital Signs Vital Signs: Vital Signs - 24 hr 09/11/25 10:00 09/11/25 11:42 09/11/25 12:00 Temperature 36.7 C Pulse Rate 98 77 Respiratory Rate 20 Blood Pressure 134/70 Pulse Oximetry 99 98 Oxygen Delivery Nasal Cannula Oxygen Flow Rate 2 09/11/25 12:00 09/11/25 14:00 09/11/25 16:00 Temperature 36.9 C Pulse Rate 68 73 78 Respiratory Rate 24 H Blood Pressure 139/74 Pulse Oximetry 100 Oxygen Delivery Oxygen Flow Rate 09/11/25 16:00 09/11/25 16:00 09/11/25 18:00 Temperature Pulse Rate 71 81 Respiratory Rate Blood Pressure Pulse Oximetry 98 Oxygen Delivery Nasal Cannula Oxygen Flow Rate 2 09/11/25 19:55 09/11/25 20:00 09/11/25 22:00 Temperature 36.6 C Pulse Rate 77 73 73 Respiratory Rate 19 Blood Pressure 144/75 H Pulse Oximetry 97 Oxygen Delivery Oxygen Flow Rate 09/12/25 00:00 09/12/25 00:00 09/12/25 02:00 Temperature 36.7 C Pulse Rate 72 73 65 Respiratory Rate 26 H Blood Pressure 141/76 H Pulse Oximetry 95 Oxygen Delivery Oxygen Flow Rate 09/12/25 03:57 09/12/25 04:00 09/12/25 06:00 Temperature 36.6 C Pulse Rate 72 76 70 Respiratory Rate 24 H Blood Pressure 146/74 H Pulse Oximetry 94 Oxygen Delivery Oxygen Flow Rate 09/12/25 08:12 Temperature Pulse Rate Respiratory Rate Blood Pressure Pulse Oximetry 92 Oxygen Delivery Nasal Cannula Oxygen Flow Rate 2 Intake/Output Intake/Output: Intake & Output 09/09/25 09/10/25 09/11/25 09/12/25 23:59 23:59 23:59 23:59 Intake Total 1040.8 1466.7 2449.3 5 Output Total 2450 2900 1550 920 Balance -1409.2 -1433.3 899.3 -915 Meds/Results Medications: Active Medications Generic Name Dose Route Start Last Admin Trade Name Freq PRN Reason Stop Dose Admin Acetaminophen 650 mg 09/06/25 18:10 Acetaminophen 650 Mg Suppository RECTAL Q6H PRN Mild Pain (1-3) or Fever Albuterol/Ipratropium 3 ml 09/06/25 18:09 Ipratropium 0.5 Mg/Albuterol Sulfate 2.5 Mg (Base) Ampul.Neb 3 Ml INHALATION Q6HRT PRN copd Dextrose 12.5 gm 09/06/25 18:09 Dextrose 50% 25 Gm/50 Ml Syringe IV PUSH PRN PRN Hypoglycemia Protocol Glucagon 1 mg 09/06/25 18:09 Glucagon For Inj 1 Mg Vial IM PRN PRN Hypoglycemia Protocol Glucose 15 gm 09/06/25 18:09 Glucose Oral Gel 15 Gm Of Glucse In 37.5 Gm Tube PO PRN PRN Hypoglycemia Protocol Dextrose 1,000 mls @ 100 mls/hr 09/06/25 18:09 Dextrose 5% 1,000 Ml IVPB PRN PRN Hypoglycemia Protocol Dextrose 1,000 mls @ 50 mls/hr 09/09/25 13:59 Dextrose 10% IV CONT .Q20H PRN if PN is interrupted Multivitamins 1.25 ml/ 1,002.5 mls @ 40 mls/hr 09/09/25 15:00 09/11/25 16:17 Multivitamins 1.25 ml/ Amino IV CONT 40 mls/hr Acids/Electrolytes/Dextrose .Q24H MICAH Administration Protocol Ceftriaxone Sodium 2 gm/ 100 mls @ 200 mls/hr 09/09/25 15:00 09/11/25 16:22 Sodium Chloride IVPB 09/12/25 15:29 Infused Q24H MICAH Infusion Fat Emulsion Intravenous 250 mls @ 20.833 mls/hr 09/09/25 15:00 09/11/25 16:18 Lipids 20% IVPB 21 mls/hr Q24H MICAH Administration Insulin Human Regular 0 units 09/09/25 18:00 09/12/25 06:05 Insulin Human Regular (*Bkc) 100 Units/Ml SUB-Q Not Given Q6HR MICAH Protocol Sodium Chloride 10 ml 09/07/25 14:00 09/12/25 06:05 Central Line Flush IV PUSH 10 ml Q8HR MICAH Administration Sodium Chloride 20 ml 09/07/25 10:44 Central Line Flush IV PUSH PRN PRN after blood draws Sodium Hypochlorite 1 applic 09/07/25 14:00 09/11/25 12:00 Sod Hypochlorite 1/4 Strength 473 Ml TOPICAL 1 applic DAILY MICAH Administration Radiology Results: ITS Impressions Chest X-Ray 09/06/25 12:50 Impression: No acute cardiopulmonary abnormality. Chest/Abdomen/Pelvis CTA 09/06/25 14:07 IMPRESSION: 1. Filling defect right upper and middle lobe segmental and subsegmental pulmonary artery consistent with pulmonary embolism, small thrombus burden. 2: Interval development of extensive mural thickening and enhancement within the bladder wall, consistent with cystitis. No evidence for bladder fistula. Mondragon catheter present. 3: Extensive subcutaneous edema with small volume of ascites, consistent with anasarca. Dr. Tariq Rivero discussed with Dr. Hector Pritchard MD at 09/06/2025 14:17 [employer]. Renal Ultrasound 09/06/25 21:28 IMPRESSION: There is a Mondragon catheter within the bladder. Left renal cyst measures 2 cm. Venous Doppler Study 09/07/25 14:37 Impression: Negative for DVT. Labs Labs: Laboratory Results - last 24 hr 09/11/25 09/11/25 09/11/25 11:14 17:29 18:16 WBC RBC Hgb Hct MCV MCH MCHC RDW Plt Count MPV Immature Gran % (Auto) Neut % (Auto) Lymph % (Auto) [place] % (Auto) Eos % (Auto) Baso % (Auto) Lymph # (Auto) [place] # (Auto) Eos # (Auto) Baso # (Auto) Abs Immat Gran (auto) Absolute Neuts (auto) Absolute Nucleated RBC Nucleated RBC % PT INR APTT Sodium 154 H Potassium 3.4 Chloride 121 H Carbon Dioxide 31 H Anion Gap 2 L BUN 17 Creatinine 0.56 L Estim Creat Clear Calc 89 Estimated GFR > 60 Glucose 132 H POC Capillary Glucose 146 H 141 H Calcium 8.3 L Phosphorus Magnesium Transferrin Total Bilirubin AST ALT Alkaline Phosphatase Total Protein Albumin 09/12/25 09/12/25 00:32 04:44 WBC 15.7 H RBC 3.94 L Hgb 11.3 L Hct 38.2 L MCV 97.0 MCH 28.7 MCHC 29.6 L RDW 16.9 H Plt Count 144 L MPV 12.8 H Immature Gran % (Auto) 1.5 H Neut % (Auto) 73.6 H Lymph % (Auto) 17.1 L [place] % (Auto) 5.8 Eos % (Auto) 1.7 Baso % (Auto) 0.3 Lymph # (Auto) 2.68 [place] # (Auto) 0.9 H Eos # (Auto) 0.3 Baso # (Auto) 0.0 Abs Immat Gran (auto) 0.23 H Absolute Neuts (auto) 11.6 H Absolute Nucleated RBC 0.000 Nucleated RBC % 0.0 PT 13.6 INR 1.0 APTT 26.4 Sodium 153 H Potassium 3.6 Chloride 119 H Carbon Dioxide 31 H Anion Gap 3 L BUN 16 Creatinine 0.48 L Estim Creat Clear Calc 102 Estimated GFR > 60 Glucose 148 H POC Capillary Glucose 151 H Calcium 8.4 Phosphorus 2.9 Magnesium 2.3 Transferrin 108 L Total Bilirubin 0.5 AST 56 ALT 41 Alkaline Phosphatase 61 Total Protein 5.7 L Albumin 2.9 L
[2025-09-12 13:27] LABS: Triglycerides 151 mg/dL (<150)
[2025-09-12] MEDS: FAT EMULSIONS IV 20% 250 ML 21 ML IVPB (14:25)
[2025-09-12] MEDS: cefTRIAXone 2 GM in SODIUM CHLORIDE 0.9% IV 100 ML 200 ML IVPB (14:26)
[2025-09-12] MEDS: AMINO ACIDS 5%/D15W/E-LYTES/CA 1,000 ML with MULTIVITAMINS-12 INJ VIAL 1 1.25 ML, MULTI... 40 ML IV CONT (14:27)
[2025-09-12] MEDS: MORPHINE SULFATE (*CRX) 4 MG/ML INJ 1 MG IV PUSH (16:05)
[2025-09-12] MEDS: SOD HYPOCHLORITE 1/4 STRENGTH 473 ML 1 APPLIC TOPICAL (16:07)
--- NOTE | 2025-09-12 16:42 | PM.IMPN ---
Progress Note: A&P Assessment and Plan (1) Pulmonary embolism: Qualifiers: Pulmonary embolism type: other Chronicity: acute Acute cor pulmonale presence: without acute cor pulmonale Qualified Code(s): I26.99 - Other pulmonary embolism without acute cor pulmonale Code(s): I26.99 - Other pulmonary embolism without acute cor pulmonale Status: Acute (2) UTI (urinary tract infection): Qualifiers: Urinary tract infection type: acute cystitis Hematuria presence: with hematuria Qualified Code(s): N30.01 - Acute cystitis with hematuria Code(s): N39.0 - Urinary tract infection, site not specified Status: Suspected (3) Septic shock: Code(s): A41.9 - Sepsis, unspecified organism; R65.21 - Severe sepsis with septic shock Status: Acute (4) Metabolic encephalopathy: Code(s): G93.41 - Metabolic encephalopathy Status: Acute Plan Nutritionally deficient, increasing TPN. Tomorrow restart blood thinners if no evidence of blood in the urine. WBC still elevated unfortunately. Will check procalcitonin repeat blood cultures. DNR. Subjective Date/time seen: 09/12/25 16:42 Interval history: No major acute overnight events. Review of Systems Review of Systems: ROS unobtainable: Yes unobtainable due to mental status Exam Const: Other: Pt laying in bed, responsive to questions HENMT: Mouth: Yes dry mucous membranes Eyes: General: appearance normal, both eyes and all related structures Neck: Other: L IJ in place Resp: Effort & Inspection: normal respiratory effort Urinary Catheter: Urinary Catheter: patent and draining and urine clear Skin: General skin exam: normal color Other: Sacral, left hip, bilateral heels, bilateral ankle pressure ulcers Neuro: Other: AAO x3 Psych: Speech and movement: No Normal speech and movement present Objective Data Vital Signs Vital Signs: Vital Signs - 24 hr 09/11/25 18:00 09/11/25 19:55 09/11/25 20:00 Temperature 97.9 F Pulse Rate 81 77 73 Respiratory Rate 19 Blood Pressure 144/75 H Pulse Oximetry 97 Oxygen Delivery Oxygen Flow Rate 09/11/25 22:00 09/12/25 00:00 09/12/25 00:00 Temperature 98.0 F Pulse Rate 73 72 73 Respiratory Rate 26 H Blood Pressure 141/76 H Pulse Oximetry 95 Oxygen Delivery Oxygen Flow Rate 09/12/25 02:00 09/12/25 03:57 09/12/25 04:00 Temperature 97.9 F Pulse Rate 65 72 76 Respiratory Rate 24 H Blood Pressure 146/74 H Pulse Oximetry 94 Oxygen Delivery Oxygen Flow Rate 09/12/25 06:00 09/12/25 08:00 09/12/25 08:00 Temperature 97.7 F Pulse Rate 70 65 Respiratory Rate 22 H Blood Pressure 140/78 Pulse Oximetry 100 93 Oxygen Delivery Nasal Cannula Oxygen Flow Rate 2 09/12/25 08:00 09/12/25 08:12 09/12/25 10:00 Temperature Pulse Rate 66 77 Respiratory Rate Blood Pressure Pulse Oximetry 92 Oxygen Delivery Nasal Cannula Oxygen Flow Rate 2 09/12/25 12:00 09/12/25 12:00 09/12/25 12:00 Temperature 97.2 F L Pulse Rate 71 72 Respiratory Rate 18 Blood Pressure 126/61 Pulse Oximetry 93 98 Oxygen Delivery Nasal Cannula Oxygen Flow Rate 2 Intake/Output Intake/Output: Intake & Output 09/09/25 09/10/25 09/11/25 09/12/25 23:59 23:59 23:59 23:59 Intake Total 1040.8 1466.7 2449.3 1241.7 Output Total 2450 2900 1550 920 Balance -1409.2 -1433.3 899.3 321.7 Meds/Results Medications: Active Medications Generic Name Dose Route Start Last Admin Trade Name Freq PRN Reason Stop Dose Admin Acetaminophen 650 mg 09/06/25 18:10 Acetaminophen 650 Mg Suppository RECTAL Q6H PRN Mild Pain (1-3) or Fever Albuterol/Ipratropium 3 ml 09/06/25 18:09 Ipratropium 0.5 Mg/Albuterol Sulfate 2.5 Mg (Base) Ampul.Neb 3 Ml INHALATION Q6HRT PRN copd Dextrose 12.5 gm 09/06/25 18:09 Dextrose 50% 25 Gm/50 Ml Syringe IV PUSH PRN PRN Hypoglycemia Protocol Glucagon 1 mg 09/06/25 18:09 Glucagon For Inj 1 Mg Vial IM PRN PRN Hypoglycemia Protocol Glucose 15 gm 09/06/25 18:09 Glucose Oral Gel 15 Gm Of Glucse In 37.5 Gm Tube PO PRN PRN Hypoglycemia Protocol Dextrose 1,000 mls @ 100 mls/hr 09/06/25 18:09 Dextrose 5% 1,000 Ml IVPB PRN PRN Hypoglycemia Protocol Dextrose 1,000 mls @ 50 mls/hr 09/09/25 13:59 Dextrose 10% IV CONT .Q20H PRN if PN is interrupted Multivitamins 1.25 ml/ 1,002.5 mls @ 40 mls/hr 09/09/25 15:00 09/12/25 14:27 Multivitamins 1.25 ml/ Amino IV CONT 40 mls/hr Acids/Electrolytes/Dextrose .Q24H MICAH Administration Protocol Fat Emulsion Intravenous 250 mls @ 20.833 mls/hr 09/09/25 15:00 09/12/25 14:25 Lipids 20% IVPB 21 mls/hr Q24H MICAH Administration Insulin Human Regular 0 units 09/09/25 18:00 09/12/25 15:39 Insulin Human Regular (*Bkc) 100 Units/Ml SUB-Q Not Given Q6HR MICAH Protocol Morphine Sulfate 1 mg 09/12/25 15:04 09/12/25 16:05 Morphine Sulfate (*Crx) 4 Mg/Ml Inj IV PUSH 1 mg ONCE PRN Administration prior to wound dressing changes Sodium Chloride 10 ml 09/07/25 14:00 09/12/25 14:26 Central Line Flush IV PUSH 10 ml Q8HR MICAH Administration Sodium Chloride 20 ml 09/07/25 10:44 Central Line Flush IV PUSH PRN PRN after blood draws Sodium Hypochlorite 1 applic 09/07/25 14:00 09/12/25 16:07 Sod Hypochlorite 1/4 Strength 473 Ml TOPICAL 1 applic DAILY MICAH Administration Radiology Results: ITS Impressions Chest X-Ray 09/06/25 12:50 Impression: No acute cardiopulmonary abnormality. Chest/Abdomen/Pelvis CTA 09/06/25 14:07 IMPRESSION: 1. Filling defect right upper and middle lobe segmental and subsegmental pulmonary artery consistent with pulmonary embolism, small thrombus burden. 2: Interval development of extensive mural thickening and enhancement within the bladder wall, consistent with cystitis. No evidence for bladder fistula. Mondragon catheter present. 3: Extensive subcutaneous edema with small volume of ascites, consistent with anasarca. Dr. Tariq Rivero discussed with Dr. 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 Renal Ultrasound 09/06/25 21:28 IMPRESSION: There is a Mondragon catheter within the bladder. Left renal cyst measures 2 cm. Venous Doppler Study 09/07/25 14:37 Impression: Negative for DVT. Labs Labs: Laboratory Results - last 24 hr 09/08/25 09/11/25 09/11/25 21:33 17:29 18:16 WBC RBC Hgb Hct MCV MCH MCHC RDW Plt Count MPV Immature Gran % (Auto) Neut % (Auto) Lymph % (Auto) [place] % (Auto) Eos % (Auto) Baso % (Auto) Lymph # (Auto) [place] # (Auto) Eos # (Auto) Baso # (Auto) Abs Immat Gran (auto) Absolute Neuts (auto) Absolute Nucleated RBC Nucleated RBC % PT INR APTT Sodium 154 H Potassium 3.4 Chloride 121 H Carbon Dioxide 31 H Anion Gap 2 L BUN 17 Creatinine 0.56 L Estim Creat Clear Calc 89 Estimated GFR > 60 Glucose 132 H POC Capillary Glucose 141 H Calcium 8.3 L Phosphorus Magnesium Transferrin Liz Transferrin Receptr 12.3 Total Bilirubin AST ALT Alkaline Phosphatase Total Protein Albumin Triglycerides 09/12/25 09/12/25 09/12/25 00:32 04:44 12:55 WBC 15.7 H RBC 3.94 L Hgb 11.3 L Hct 38.2 L MCV 97.0 MCH 28.7 MCHC 29.6 L RDW 16.9 H Plt Count 144 L MPV 12.8 H Immature Gran % (Auto) 1.5 H Neut % (Auto) 73.6 H Lymph % (Auto) 17.1 L [place] % (Auto) 5.8 Eos % (Auto) 1.7 Baso % (Auto) 0.3 Lymph # (Auto) 2.68 [place] # (Auto) 0.9 H Eos # (Auto) 0.3 Baso # (Auto) 0.0 Abs Immat Gran (auto) 0.23 H Absolute Neuts (auto) 11.6 H Absolute Nucleated RBC 0.000 Nucleated RBC % 0.0 PT 13.6 INR 1.0 APTT 26.4 Sodium 153 H Potassium 3.6 Chloride 119 H Carbon Dioxide 31 H Anion Gap 3 L BUN 16 Creatinine 0.48 L Estim Creat Clear Calc 102 Estimated GFR > 60 Glucose 148 H POC Capillary Glucose 151 H 140 H Calcium 8.4 Phosphorus 2.9 Magnesium 2.3 Transferrin 108 L Liz Transferrin Receptr Total Bilirubin 0.5 AST 56 ALT 41 Alkaline Phosphatase 61 Total Protein 5.7 L Albumin 2.9 L Triglycerides 151 H
--- NOTE | 2025-09-12 17:30 | PC.NURSE ---
message left for dietary requesting tpn increase to 30% per dr walter
[2025-09-12 18:56] LABS: Procalcitonin 0.3 ng/mL
[2025-09-13] VITALS (11 sets, daily range): BP systolic 112–128; BP diastolic 60–70; PULSE 62–94; RESP 14–24; TEMP 36.3–36.9; O2SAT 94–100
[2025-09-13 05:46] LABS: Anion Gap 1 mmol/L (4-12); Blood Urea Nitrogen 20 mg/dL (9-20); Calcium 8.4 mg/dL (8.4-10.2); Carbon Dioxide 34 mmol/L (22-30); Chloride 116 mmol/L (98-107); Estimated CRCL calculation 82 ml/min; Estimated Glomerular Filt Rate > 60; Glucose 147 mg/dL (65-110); Potassium 3.9 mmol/L (3.4-5.0); Sodium 151 mmol/L (137-145)
--- NOTE | 2025-09-13 05:48 | PC.NURSE ---
Patient urine draining clear/yellow with no hematuria noticed. CBI has been clamped overnight. RN went in to room to d/c the CBI cath and replace with smaller catheter x3 and patient has refused each time stating I am not doing it until tomorrow. Called another nurse into the room to help explain to patient why we need to change catheter and explained to patient that it will have to be changed today regardless and so that we could get it over with and him not have to deal with it later. Patient still refusing after 2 RN's educating patient on need for it to be changed out. Will update oncoming RN so they can update urology during the day.
[2025-09-13] MEDS: CENTRAL LINE FLUSH 10 ML IV PUSH ×3 (05:52→20:55)
[2025-09-13] MEDS: AMINO ACIDS 5%/D15W/E-LYTES/CA 1,000 ML with MULTIVITAMINS-12 INJ VIAL 1 1.25 ML, MULTI... 60 ML IV CONT (08:37)
--- NOTE | 2025-09-13 08:58 | PM.IMPN ---
Progress Note: A&P Assessment and Plan (1) Septic shock: Code(s): A41.9 - Sepsis, unspecified organism; R65.21 - Severe sepsis with septic shock Status: Acute Assessment and Plan: Sepsis secondary to UTI. Uterine present with significant hematuria, which appears to be clearing up. With history of Nehal UTI. Blood blood culture positive for Gram-negative rods, confirmed to be Proteus with susceptibility to ceftriaxone. Out of sepsis at this time. Change cefepime to Ceftriaxone to complete 7 days (2) Pulmonary embolism: Code(s): I26.99 - Other pulmonary embolism without acute cor pulmonale Status: Acute Assessment and Plan: CTA confirmed PE. In light of significant hematuria anticoagulation will be held. Depending on how he does he may need a tPA candidate for AA anticoagulation and may need IVC filter. Will see if urine clears and will start heparin drip if hematuria resolves. Echo: No LA thrombus Venous doppler: negative for DVT 09/08: Repeat UA shows 3+ blood. Hematology agrees with assessment of holding anticoagulation given active gross hematuria and clot burden on CT. Also does not consider need for IVC filter at this time as patient is active PE no DVT. 09/09: Given hematuria is only starting to improve, will likely defer anticoagulation 1-3 more days to ensure hematuria is completely resolved before restarting anticoagulation (3) CHELSEA (acute kidney injury): Code(s): N17.9 - Acute kidney failure, unspecified Status: Resolved Assessment and Plan: Secondary to sepsis hypotension and hypovolemia Renal function improved with IV fluids Creatinine now normalized Monitor urine output electrolytes and creatinine (4) Acute hemorrhagic cystitis: Code(s): N30.01 - Acute cystitis with hematuria Status: Acute Assessment and Plan: Associated with UTI Urology has been consulted-deferring anticoagulation to hospitalist team. Hematuria is starting to clear up, Urology has turned off CBI to resume hematuria reoccurs. (5) COPD (chronic obstructive pulmonary disease): Qualifiers: COPD type: unspecified COPD Qualified Code(s): J44.9 - Chronic obstructive pulmonary disease, unspecified Code(s): J44.9 - Chronic obstructive pulmonary disease, unspecified Status: Chronic Assessment and Plan: Bronchodilators p.r.n. (6) Hypokalemia: Code(s): E87.6 - Hypokalemia Status: Acute Assessment and Plan: Drop in potassium on 09/08, potassium was repleted, magnesium level was checked and also 1 g magnesium sulfate was administered to assist with repletion of potassium. Most likely causes due to poor oral intake as patient is currently NPO due to significant swallowing difficulties, he is refusing NG tube at this time. Spoke with patient's daughter Odalys, who agrees for TPN at this time. Will continue to trend potassium levels and replete as needed TPN to replete electrolytes (7) Failure to thrive in adult: Code(s): R62.7 - Adult failure to thrive Status: Acute Assessment and Plan: Patient has been NPO since transfer from ICU. Per patient's daughter Odalys, he has been having significant issues with swallowing in the time just prior to admission. Could be due to significant weakness secondary to sepsis/septic shock with or without element of MS the patient has history of. Given feeding has been very difficult, electrolyte imbalance issues for the past day could be attributed to this. Options for feeding or NG tube placement which patient was continuously refusing or TPN. After discussing with the patient's daughter who is power of ip technology transactions attorney, she agrees for TPN at this time. TPN started- monitor for refeeding syndrome: Hypomagnesemia, severe hypophosphatemia, hypokalemia. Hypokalemia was noted today, but mild without other findings. Regular monitoring of labs ordered with TPN order set (8) Positive result for methicillin resistant Staphylococcus aureus (MRSA) screening: Code(s): Z22.322 - Carrier or suspected carrier of Methicillin resistant Staphylococcus aureus Status: Acute Assessment and Plan: Contact isolation precautions (9) Pressure ulcers of skin of multiple topographic sites: Code(s): L89.90 - Pressure ulcer of unspecified site, unspecified stage Status: Acute Assessment and Plan: Pressure ulcers on sacrum, left hip, bilateral heels, bilateral ankles. Wound care is on board Management per Wound Care (10) Hypernatremia: Code(s): E87.0 - Hyperosmolality and hypernatremia Status: Acute Assessment and Plan: 09/09: Hypernatremia has been noted, 149 > 151 > 155. Dehydration as patient has been NPO is most likely cause. 09/10: Na 151 now, TPN was started. Continuing to monitor Na regularly. Plan Patient is refusing NG tube for feeding. TPN for diet Not on anticoagulation due to hematuria Consider restarting anticoagulation if urine remains clear. Assuming care on 09/11, patient is stable. Continue current management, Subjective Date/time seen: 09/11/2025 at 1:00 p.m. Interval history: No major acute overnight events. Review of Systems Review of Systems: All systems reviewed & are unremarkable except as noted in HPI and below (Subjective) Exam Const: Other: Pt laying in bed, responsive to questions HENMT: Mouth: Yes dry mucous membranes Eyes: General: appearance normal, both eyes and all related structures Neck: Other: L IJ in place Resp: Effort & Inspection: normal respiratory effort Urinary Catheter: Urinary Catheter: patent and draining and urine clear Skin: General skin exam: normal color Other: Sacral, left hip, bilateral heels, bilateral ankle pressure ulcers Neuro: Other: AAO x3 Psych: Speech and movement: No Normal speech and movement present Objective Data Vital Signs Vital Signs: Vital Signs - 24 hr 09/12/25 10:00 09/12/25 12:00 09/12/25 12:00 Temperature Pulse Rate 77 71 Respiratory Rate Blood Pressure Pulse Oximetry 93 Oxygen Delivery Nasal Cannula Oxygen Flow Rate 2 09/12/25 12:00 09/12/25 14:00 09/12/25 16:00 Temperature 97.2 F L Pulse Rate 72 72 Respiratory Rate 18 Blood Pressure 126/61 Pulse Oximetry 98 94 Oxygen Delivery Nasal Cannula Oxygen Flow Rate 2 09/12/25 16:00 09/12/25 16:00 09/12/25 20:00 Temperature 98.4 F 97.9 F Pulse Rate 82 82 77 Respiratory Rate 24 H 12 Blood Pressure 132/69 110/72 Pulse Oximetry 97 97 Oxygen Delivery Oxygen Flow Rate 09/12/25 20:00 09/13/25 00:00 09/13/25 00:00 Temperature 97.4 F L Pulse Rate 75 70 70 Respiratory Rate 20 Blood Pressure 112/61 Pulse Oximetry 99 Oxygen Delivery Oxygen Flow Rate 09/13/25 02:00 09/13/25 04:00 09/13/25 04:00 Temperature 97.5 F L Pulse Rate 65 94 62 Respiratory Rate 14 Blood Pressure 123/61 Pulse Oximetry 98 Oxygen Delivery Oxygen Flow Rate 09/13/25 08:00 Temperature 97.8 F Pulse Rate 74 Respiratory Rate 20 Blood Pressure 120/69 Pulse Oximetry 97 Oxygen Delivery Oxygen Flow Rate Intake/Output Intake/Output: Intake & Output 09/10/25 09/11/25 09/12/25 09/13/25 23:59 23:59 23:59 23:59 Intake Total 1466.7 2449.3 1241.7 976.7 Output Total 2900 1550 2570 450 Balance -1433.3 899.3 -1328.3 526.7 Meds/Results Medications: Active Medications Generic Name Dose Route Start Last Admin Trade Name Freq PRN Reason Stop Dose Admin Acetaminophen 650 mg 09/06/25 18:10 Acetaminophen 650 Mg Suppository RECTAL Q6H PRN Mild Pain (1-3) or Fever Albuterol/Ipratropium 3 ml 09/06/25 18:09 Ipratropium 0.5 Mg/Albuterol Sulfate 2.5 Mg (Base) Ampul.Neb 3 Ml INHALATION Q6HRT PRN copd Dextrose 12.5 gm 09/06/25 18:09 Dextrose 50% 25 Gm/50 Ml Syringe IV PUSH PRN PRN Hypoglycemia Protocol Glucagon 1 mg 09/06/25 18:09 Glucagon For Inj 1 Mg Vial IM PRN PRN Hypoglycemia Protocol Glucose 15 gm 09/06/25 18:09 Glucose Oral Gel 15 Gm Of Glucse In 37.5 Gm Tube PO PRN PRN Hypoglycemia Protocol Dextrose 1,000 mls @ 100 mls/hr 09/06/25 18:09 Dextrose 5% 1,000 Ml IVPB PRN PRN Hypoglycemia Protocol Dextrose 1,000 mls @ 50 mls/hr 09/09/25 13:59 Dextrose 10% IV CONT .Q20H PRN if PN is interrupted Multivitamins 1.25 ml/ 1,002.5 mls @ 60 mls/hr 09/09/25 15:00 09/13/25 08:37 Multivitamins 1.25 ml/ Amino IV CONT 60 mls/hr Acids/Electrolytes/Dextrose .[id number] MICAH Administration Protocol Fat Emulsion Intravenous 250 mls @ 20.833 mls/hr 09/09/25 15:00 09/13/25 02:20 Lipids 20% IVPB Infused Q24H MICAH Infusion Insulin Human Regular 0 units 09/09/25 18:00 09/13/25 05:52 Insulin Human Regular (*Bkc) 100 Units/Ml SUB-Q Not Given Q6HR [facility] Protocol Morphine Sulfate 1 mg 09/12/25 15:04 09/12/25 16:05 Morphine Sulfate (*Crx) 4 Mg/Ml Inj IV PUSH 1 mg ONCE PRN Administration prior to wound dressing changes Sodium Chloride 10 ml 09/07/25 14:00 09/13/25 05:52 Central Line Flush IV PUSH 10 ml Q8HR MICAH Administration Sodium Chloride 20 ml 09/07/25 10:44 Central Line Flush IV PUSH PRN PRN after blood draws Sodium Hypochlorite 1 applic 09/07/25 14:00 09/12/25 16:07 Sod Hypochlorite 1/4 Strength 473 Ml TOPICAL 1 applic DAILY MICAH Administration Radiology Results: ITS Impressions Chest X-Ray 09/06/25 12:50 Impression: No acute cardiopulmonary abnormality. Chest/Abdomen/Pelvis CTA 09/06/25 14:07 IMPRESSION: 1. Filling defect right upper and middle lobe segmental and subsegmental pulmonary artery consistent with pulmonary embolism, small thrombus burden. 2: Interval development of extensive mural thickening and enhancement within the bladder wall, consistent with cystitis. No evidence for bladder fistula. Mondragon catheter present. 3: Extensive subcutaneous edema with small volume of ascites, consistent with anasarca. Dr. Tariq Rivero discussed with Dr. 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 Renal Ultrasound 09/06/25 21:28 IMPRESSION: There is a Mondragon catheter within the bladder. Left renal cyst measures 2 cm. Venous Doppler Study 09/07/25 14:37 Impression: Negative for DVT. Labs Labs: Laboratory Results - last 24 hr 09/08/25 09/12/25 09/12/25 21:33 04:44 12:55 Sodium Potassium Chloride Carbon Dioxide Anion Gap BUN Creatinine Estim Creat Clear Calc Estimated GFR Glucose POC Capillary Glucose 140 H Calcium Phosphorus Liz Transferrin Receptr 12.3 Triglycerides 151 H Procalcitonin 09/12/25 09/12/25 09/12/25 16:22 17:59 23:32 Sodium Potassium Chloride Carbon Dioxide Anion Gap BUN Creatinine Estim Creat Clear Calc Estimated GFR Glucose POC Capillary Glucose 145 H 167 H Calcium Phosphorus Liz Transferrin Receptr Triglycerides Procalcitonin 0.3 09/13/25 09/13/25 05:12 05:38 Sodium 151 H Potassium 3.9 Chloride 116 H Carbon Dioxide 34 H Anion Gap 1 L BUN 20 Creatinine 0.61 L Estim Creat Clear Calc 82 Estimated GFR > 60 Glucose 147 H POC Capillary Glucose 152 H Calcium 8.4 Phosphorus 2.8 Liz Transferrin Receptr Triglycerides Procalcitonin
--- NOTE | 2025-09-13 09:07 | P.PNIM_ITS ---
Progress Note: A&P Assessment and Plan (1) Failure to thrive in adult: Code(s): R62.7 - Adult failure to thrive Status: Acute Assessment and Plan: Increase TPN 50% rate, transferrin low. No evidence of refeeding syndrome. (2) Positive result for methicillin resistant Staphylococcus aureus (MRSA) screening: Code(s): Z22.322 - Carrier or suspected carrier of Methicillin resistant Staphylococcus aureus Status: Acute Assessment and Plan: Contact isolation precautions (3) Pressure ulcers of skin of multiple topographic sites: Code(s): L89.90 - Pressure ulcer of unspecified site, unspecified stage Status: Acute Assessment and Plan: Pressure ulcers on sacrum, left hip, bilateral heels, bilateral ankles. Wound care is on board Management per Wound Care Plan DNR Subjective Date/time seen: 09/13/25 09:07 Interval history: No major acute overnight events. Patient appears comfortable, follows commands. Review of Systems Review of Systems: All systems reviewed & are unremarkable except as noted in HPI and below (Subjective) Exam Const: General: comfortable Other: Pleasantly confused HENMT: Mouth: Yes dry mucous membranes Eyes: Pupils: Equal, round and reactive pupils present Neck: Neck: supple Resp: Effort & Inspection: normal respiratory effort Auscultation: clear to auscultation bilaterally Cardio: Rate: regular rate Rhythm: regular rhythm GI: Inspection: non-distended GI Palp: Yes Soft to palpation Neuro: Other: Globally weak Extrem: General: no edema Objective Data Vital Signs Vital Signs: Vital Signs - 24 hr 09/12/25 10:00 09/12/25 12:00 09/12/25 12:00 Temperature Pulse Rate 77 71 Respiratory Rate Blood Pressure Pulse Oximetry 93 Oxygen Delivery Nasal Cannula Oxygen Flow Rate 2 09/12/25 12:00 09/12/25 14:00 09/12/25 16:00 Temperature 97.2 F L Pulse Rate 72 72 Respiratory Rate 18 Blood Pressure 126/61 Pulse Oximetry 98 94 Oxygen Delivery Nasal Cannula Oxygen Flow Rate 2 09/12/25 16:00 09/12/25 16:00 09/12/25 20:00 Temperature 98.4 F 97.9 F Pulse Rate 82 82 77 Respiratory Rate 24 H 12 Blood Pressure 132/69 110/72 Pulse Oximetry 97 97 Oxygen Delivery Oxygen Flow Rate 09/12/25 20:00 09/13/25 00:00 09/13/25 00:00 Temperature 97.4 F L Pulse Rate 75 70 70 Respiratory Rate 20 Blood Pressure 112/61 Pulse Oximetry 99 Oxygen Delivery Oxygen Flow Rate 09/13/25 02:00 09/13/25 04:00 09/13/25 04:00 Temperature 97.5 F L Pulse Rate 65 94 62 Respiratory Rate 14 Blood Pressure 123/61 Pulse Oximetry 98 Oxygen Delivery Oxygen Flow Rate 09/13/25 08:00 Temperature 97.8 F Pulse Rate 74 Respiratory Rate 20 Blood Pressure 120/69 Pulse Oximetry 97 Oxygen Delivery Oxygen Flow Rate Intake/Output Intake/Output: Intake & Output 09/10/25 09/11/25 09/12/25 09/13/25 23:59 23:59 23:59 23:59 Intake Total 1466.7 2449.3 1241.7 976.7 Output Total 2900 1550 2570 450 Balance -1433.3 899.3 -1328.3 526.7 Meds/Results Medications: Active Medications Generic Name Dose Route Start Last Admin Trade Name Freq PRN Reason Stop Dose Admin Acetaminophen 650 mg 09/06/25 18:10 Acetaminophen 650 Mg Suppository RECTAL Q6H PRN Mild Pain (1-3) or Fever Albuterol/Ipratropium 3 ml 09/06/25 18:09 Ipratropium 0.5 Mg/Albuterol Sulfate 2.5 Mg (Base) Ampul.Neb 3 Ml INHALATION Q6HRT PRN copd Dextrose 12.5 gm 09/06/25 18:09 Dextrose 50% 25 Gm/50 Ml Syringe IV PUSH PRN PRN Hypoglycemia Protocol Glucagon 1 mg 09/06/25 18:09 Glucagon For Inj 1 Mg Vial IM PRN PRN Hypoglycemia Protocol Glucose 15 gm 09/06/25 18:09 Glucose Oral Gel 15 Gm Of Glucse In 37.5 Gm Tube PO PRN PRN Hypoglycemia Protocol Dextrose 1,000 mls @ 100 mls/hr 09/06/25 18:09 Dextrose 5% 1,000 Ml IVPB PRN PRN Hypoglycemia Protocol Dextrose 1,000 mls @ 50 mls/hr 09/09/25 13:59 Dextrose 10% IV CONT .Q20H PRN if PN is interrupted Multivitamins 1.25 ml/ 1,002.5 mls @ 60 mls/hr 09/09/25 15:00 09/13/25 08:37 Multivitamins 1.25 ml/ Amino IV CONT 60 mls/hr Acids/Electrolytes/Dextrose .[id number] MICAH Administration Protocol Fat Emulsion Intravenous 250 mls @ 20.833 mls/hr 09/09/25 15:00 09/13/25 02:20 Lipids 20% IVPB Infused Q24H MICAH Infusion Insulin Human Regular 0 units 09/09/25 18:00 09/13/25 05:52 Insulin Human Regular (*Bkc) 100 Units/Ml SUB-Q Not Given Q6HR [facility] Protocol Morphine Sulfate 1 mg 09/12/25 15:04 09/12/25 16:05 Morphine Sulfate (*Crx) 4 Mg/Ml Inj IV PUSH 1 mg ONCE PRN Administration prior to wound dressing changes Sodium Chloride 10 ml 09/07/25 14:00 09/13/25 05:52 Central Line Flush IV PUSH 10 ml Q8HR MICAH Administration Sodium Chloride 20 ml 09/07/25 10:44 Central Line Flush IV PUSH PRN PRN after blood draws Sodium Hypochlorite 1 applic 09/07/25 14:00 09/12/25 16:07 Sod Hypochlorite 1/4 Strength 473 Ml TOPICAL 1 applic DAILY MICAH Administration Radiology Results: ITS Impressions Chest X-Ray 09/06/25 12:50 Impression: No acute cardiopulmonary abnormality. Chest/Abdomen/Pelvis CTA 09/06/25 14:07 IMPRESSION: 1. Filling defect right upper and middle lobe segmental and subsegmental pulmonary artery consistent with pulmonary embolism, small thrombus burden. 2: Interval development of extensive mural thickening and enhancement within the bladder wall, consistent with cystitis. No evidence for bladder fistula. Mondragon catheter present. 3: Extensive subcutaneous edema with small volume of ascites, consistent with anasarca. Dr. Tariq Rivero discussed with Dr. 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 Renal Ultrasound 09/06/25 21:28 IMPRESSION: There is a Mondragon catheter within the bladder. Left renal cyst measures 2 cm. Venous Doppler Study 09/07/25 14:37 Impression: Negative for DVT. Labs Labs: Laboratory Results - last 24 hr 09/08/25 09/12/25 09/12/25 21:33 04:44 12:55 Sodium Potassium Chloride Carbon Dioxide Anion Gap BUN Creatinine Estim Creat Clear Calc Estimated GFR Glucose POC Capillary Glucose 140 H Calcium Phosphorus Liz Transferrin Receptr 12.3 Triglycerides 151 H Procalcitonin 09/12/25 09/12/25 09/12/25 16:22 17:59 23:32 Sodium Potassium Chloride Carbon Dioxide Anion Gap BUN Creatinine Estim Creat Clear Calc Estimated GFR Glucose POC Capillary Glucose 145 H 167 H Calcium Phosphorus Liz Transferrin Receptr Triglycerides Procalcitonin 0.3 09/13/25 09/13/25 05:12 05:38 Sodium 151 H Potassium 3.9 Chloride 116 H Carbon Dioxide 34 H Anion Gap 1 L BUN 20 Creatinine 0.61 L Estim Creat Clear Calc 82 Estimated GFR > 60 Glucose 147 H POC Capillary Glucose 152 H Calcium 8.4 Phosphorus 2.8 Liz Transferrin Receptr Triglycerides Procalcitonin
--- NOTE | 2025-09-13 09:23 | WPDUROPN2 ---
Progress Note: A&P Assessment and Plan (1) Gross hematuria: Code(s): R31.0 - Gross hematuria Status: Acute Assessment and Plan: - Cleared on CBI; clamped for 24 hr with no gross hematuria or clots - May discontinue CBI and downsize Mondragon catheter - OK to discharge from urology standpoint (2) Urinary retention: Code(s): R33.9 - Retention of urine, unspecified Status: Acute Assessment and Plan: - Pt chronic catheter user; maintain on discharge (3) UTI (urinary tract infection): Qualifiers: Urinary tract infection type: acute cystitis Hematuria presence: with hematuria Qualified Code(s): N30.01 - Acute cystitis with hematuria Code(s): N39.0 - Urinary tract infection, site not specified Status: Suspected Assessment and Plan: - Resolved with Abx Subjective Subjective Date/Time Seen: 09/13/25 09:23 Interval history: NAEO; pt comfortable in bed. Mondragon with clear yellow urine Exam Const: General: comfortable and no acute distress Other: Pt laying in bed, responsive to questions Eyes: General: appearance normal, both eyes and all related structures Resp: Effort & Inspection: normal respiratory effort Urinary Catheter: Urinary Catheter: patent and draining and urine clear (yellow, no gross hematuria, no clots) Skin: General skin exam: normal color Psych: Speech and movement: Normal speech and movement present Affect: normal affect Objective Data Vital Signs Vital Signs: Vital Signs - 24 hr 09/12/25 10:00 09/12/25 12:00 09/12/25 12:00 Temperature Pulse Rate 77 71 Respiratory Rate Blood Pressure Pulse Oximetry 93 Oxygen Delivery Nasal Cannula Oxygen Flow Rate 2 09/12/25 12:00 09/12/25 14:00 09/12/25 16:00 Temperature 36.2 C L Pulse Rate 72 72 Respiratory Rate 18 Blood Pressure 126/61 Pulse Oximetry 98 94 Oxygen Delivery Nasal Cannula Oxygen Flow Rate 2 09/12/25 16:00 09/12/25 16:00 09/12/25 20:00 Temperature 36.9 C 36.6 C Pulse Rate 82 82 77 Respiratory Rate 24 H 12 Blood Pressure 132/69 110/72 Pulse Oximetry 97 97 Oxygen Delivery Oxygen Flow Rate 09/12/25 20:00 09/13/25 00:00 09/13/25 00:00 Temperature 36.3 C L Pulse Rate 75 70 70 Respiratory Rate 20 Blood Pressure 112/61 Pulse Oximetry 99 Oxygen Delivery Oxygen Flow Rate 09/13/25 02:00 09/13/25 04:00 09/13/25 04:00 Temperature 36.4 C L Pulse Rate 65 94 62 Respiratory Rate 14 Blood Pressure 123/61 Pulse Oximetry 98 Oxygen Delivery Oxygen Flow Rate 09/13/25 08:00 Temperature 36.6 C Pulse Rate 74 Respiratory Rate 20 Blood Pressure 120/69 Pulse Oximetry 97 Oxygen Delivery Oxygen Flow Rate Intake/Output Intake/Output: Intake & Output 09/10/25 09/11/25 09/12/25 09/13/25 23:59 23:59 23:59 23:59 Intake Total 1466.7 2449.3 1241.7 976.7 Output Total 2900 1550 2570 450 Balance -1433.3 899.3 -1328.3 526.7 Meds/Results Medications: Active Medications Generic Name Dose Route Start Last Admin Trade Name Freq PRN Reason Stop Dose Admin Acetaminophen 650 mg 09/06/25 18:10 Acetaminophen 650 Mg Suppository RECTAL Q6H PRN Mild Pain (1-3) or Fever Albuterol/Ipratropium 3 ml 09/06/25 18:09 Ipratropium 0.5 Mg/Albuterol Sulfate 2.5 Mg (Base) Ampul.Neb 3 Ml INHALATION Q6HRT PRN copd Dextrose 12.5 gm 09/06/25 18:09 Dextrose 50% 25 Gm/50 Ml Syringe IV PUSH PRN PRN Hypoglycemia Protocol Glucagon 1 mg 09/06/25 18:09 Glucagon For Inj 1 Mg Vial IM PRN PRN Hypoglycemia Protocol Glucose 15 gm 09/06/25 18:09 Glucose Oral Gel 15 Gm Of Glucse In 37.5 Gm Tube PO PRN PRN Hypoglycemia Protocol Dextrose 1,000 mls @ 100 mls/hr 09/06/25 18:09 Dextrose 5% 1,000 Ml IVPB PRN PRN Hypoglycemia Protocol Dextrose 1,000 mls @ 50 mls/hr 09/09/25 13:59 Dextrose 10% IV CONT .Q20H PRN if PN is interrupted Multivitamins 1.25 ml/ 1,002.5 mls @ 60 mls/hr 09/09/25 15:00 09/13/25 08:37 Multivitamins 1.25 ml/ Amino IV CONT 60 mls/hr Acids/Electrolytes/Dextrose .[id number] MICAH Administration Protocol Fat Emulsion Intravenous 250 mls @ 20.833 mls/hr 09/09/25 15:00 09/13/25 02:20 Lipids 20% IVPB Infused Q24H MICAH Infusion Insulin Human Regular 0 units 09/09/25 18:00 09/13/25 05:52 Insulin Human Regular (*Bkc) 100 Units/Ml SUB-Q Not Given Q6HR [facility] Protocol Morphine Sulfate 1 mg 09/12/25 15:04 09/12/25 16:05 Morphine Sulfate (*Crx) 4 Mg/Ml Inj IV PUSH 1 mg ONCE PRN Administration prior to wound dressing changes Sodium Chloride 10 ml 09/07/25 14:00 09/13/25 05:52 Central Line Flush IV PUSH 10 ml Q8HR MICAH Administration Sodium Chloride 20 ml 09/07/25 10:44 Central Line Flush IV PUSH PRN PRN after blood draws Sodium Hypochlorite 1 applic 09/07/25 14:00 09/12/25 16:07 Sod Hypochlorite 1/4 Strength 473 Ml TOPICAL 1 applic DAILY MICAH Administration Radiology Results: ITS Impressions Chest X-Ray 09/06/25 12:50 Impression: No acute cardiopulmonary abnormality. Chest/Abdomen/Pelvis CTA 09/06/25 14:07 IMPRESSION: 1. Filling defect right upper and middle lobe segmental and subsegmental pulmonary artery consistent with pulmonary embolism, small thrombus burden. 2: Interval development of extensive mural thickening and enhancement within the bladder wall, consistent with cystitis. No evidence for bladder fistula. Mondragon catheter present. 3: Extensive subcutaneous edema with small volume of ascites, consistent with anasarca. Dr. Tariq Rivero discussed with Dr. Hector Pritchard MD at 09/06/2025 14:17 [employer]CH SAL[employer] SPECIALIST. Renal Ultrasound 09/06/25 21:28 IMPRESSION: There is a Mondragon catheter within the bladder. Left renal cyst measures 2 cm. Venous Doppler Study 09/07/25 14:37 Impression: Negative for DVT. Labs Labs: Laboratory Results - last 24 hr 09/08/25 09/12/25 09/12/25 21:33 04:44 12:55 Sodium Potassium Chloride Carbon Dioxide Anion Gap BUN Creatinine Estim Creat Clear Calc Estimated GFR Glucose POC Capillary Glucose 140 H Calcium Phosphorus Liz Transferrin Receptr 12.3 Triglycerides 151 H Procalcitonin 09/12/25 09/12/25 09/12/25 16:22 17:59 23:32 Sodium Potassium Chloride Carbon Dioxide Anion Gap BUN Creatinine Estim Creat Clear Calc Estimated GFR Glucose POC Capillary Glucose 145 H 167 H Calcium Phosphorus Liz Transferrin Receptr Triglycerides Procalcitonin 0.3 09/13/25 09/13/25 05:12 05:38 Sodium 151 H Potassium 3.9 Chloride 116 H Carbon Dioxide 34 H Anion Gap 1 L BUN 20 Creatinine 0.61 L Estim Creat Clear Calc 82 Estimated GFR > 60 Glucose 147 H POC Capillary Glucose 152 H Calcium 8.4 Phosphorus 2.8 Liz Transferrin Receptr Triglycerides Procalcitonin
--- NOTE | 2025-09-13 10:24 | PC.NURSE ---
dietary would like a repeat swallow study, she will talk with dr walter and see if he agrees
--- NOTE | 2025-09-13 10:46 | PCNFU ---
Nutrition Follow-Up Complete: Severe Protein Calorie Malnutrition as related to inadequate protein energy intake with increased protein-energy needs in setting of chronic disease as evidenced by minimal oral intake for > 1-2 months; significant weight loss of 27 ibs (17%) in 1 month; severe subcutaneous fat loss (orbital fat pads) and severe muscle wasting (temporalis, clavicle). Meet estimated nutritional needs - Progressing, needs being met with TPN. Goal: Pt current nutrition is TPN Clinmix E 5/15 with lipids @ 60 ml/h . Nutrition recommendation: Recommend further swallow evaluation. PEG tube vs hospice if not able to swallow. Last recorded weight is 58.1 kg. Bowel Motility: Last BM charted 09/06. No bowel movement 7 days Labs Reviewed: Cre 0.61, Glu 152, Na 151 Meds Noted: insulin Skin: Multiple pressure injuries noted Additional Notes: Discussed with MD. Repeat swallow eval/MBS for today and then decide whether pt's family wants a PEG tube vs hospice, if not able to swallow. Pt reportedly refused NG tube so TPN was started. ClinmiX E 5/15 with lipids @ 60 ml/h provides 1522 kcal, 72 g protein, 1690 ml total volume. Meets needs @ 26 kcal/kg, 1.2 g protein/kg. Adequate for needs, but could increase to 70ml/h to better meet increased needs from wounds. Will continue to monitor. MD ordering repeat MBS. Will monitor weight, labs, skin, diet orders, meds every 3 days.
--- NOTE | 2025-09-13 13:29 | P.PNONC_ITS ---
Progress Note: A&P Assessment and Plan (1) Pulmonary embolism: Code(s): I26.99 - Other pulmonary embolism without acute cor pulmonale Status: Acute (2) Failure to thrive in adult: Code(s): R62.7 - Adult failure to thrive Status: Acute (3) Gross hematuria: Code(s): R31.0 - Gross hematuria Status: Acute (4) Normocytic anemia: Code(s): D64.9 - Anemia, unspecified Status: Acute Plan Pulmonary embolism with small PE burden. - Anticoagulation currently on hold due to hematuria Hematuria - Appears to be improving. - Anticoagulation to restart once hematuria has completely resolved. Normocytic anemia - Iron studies, Vitamin B12 and folic acid pending. CODE STATUS - DNR Aspiration -Barium swallow scheduled Time Spent With Patient Time: 10 minutes Subjective Date/time seen: 09/13/25 13:29 Interval history: 69 year old male admitted with sepsis. UTI and mental status change. He has history of multiple sclerosis and is bedbound; resides in a NH. CT scan showed pulmonary embolism involving right upper and middle lobe pulmonary artery with small thrombus burden along with extensive mural thickening of the bladder wall consistent with cystitis. Doppler study showed no evidence of DVT. Patient has gross hematuria for which anticoagulation was temporarily stopped. Hgb dropped from 14/4 to 9.8. Venous doppler negative for LE DVT. Labs: (09/08/25): WBC 21.5, Hgb 9.8, Hct 31.1, Plt 144 (09/12/25): WBC 15.7, Hgb 11.3, Hct 38.2, MCV 97.0, Plt 144 (09/13/25): BUN 20, crea0.61 Iron studies, Vitamin B12 and folic acid pending. Patient made a DNR per daughter. Appears to have no breathing issues. He is aspirating per RN; barium swallow scheduled. Urine in catheter bed no longer bloody. Exam Narrative: Ill appearing male HENMT: Other: Dry pharynx Resp: Other: Bilateral air entry Cardio: Other: RRR Objective Data Vital Signs Vital Signs: Vital Signs - 24 hr 09/12/25 14:00 09/12/25 16:00 09/12/25 16:00 Temperature Pulse Rate 72 82 Respiratory Rate Blood Pressure Pulse Oximetry 94 Oxygen Delivery Nasal Cannula Oxygen Flow Rate 2 09/12/25 16:00 09/12/25 20:00 09/12/25 20:00 Temperature 36.9 C 36.6 C Pulse Rate 82 77 75 Respiratory Rate 24 H 12 Blood Pressure 132/69 110/72 Pulse Oximetry 97 97 Oxygen Delivery Oxygen Flow Rate 09/13/25 00:00 09/13/25 00:00 09/13/25 02:00 Temperature 36.3 C L Pulse Rate 70 70 65 Respiratory Rate 20 Blood Pressure 112/61 Pulse Oximetry 99 Oxygen Delivery Oxygen Flow Rate 09/13/25 04:00 09/13/25 04:00 09/13/25 08:00 Temperature 36.4 C L 36.6 C Pulse Rate 94 62 74 Respiratory Rate 14 20 Blood Pressure 123/61 120/69 Pulse Oximetry 98 97 Oxygen Delivery Oxygen Flow Rate 09/13/25 08:00 09/13/25 08:00 09/13/25 08:00 Temperature Pulse Rate 67 Respiratory Rate Blood Pressure Pulse Oximetry 94 94 Oxygen Delivery Nasal Cannula Nasal Cannula Oxygen Flow Rate 2 2 09/13/25 11:48 09/13/25 12:00 Temperature 36.5 C Pulse Rate 74 70 Respiratory Rate 24 H Blood Pressure 125/65 Pulse Oximetry 99 Oxygen Delivery Oxygen Flow Rate Intake/Output Intake/Output: Intake & Output 09/10/25 09/11/25 09/12/25 09/13/25 23:59 23:59 23:59 23:59 Intake Total 1466.7 2449.3 1241.7 976.7 Output Total 2900 1550 2570 450 Balance -1433.3 899.3 -1328.3 526.7 Meds/Results Medications: Active Medications Generic Name Dose Route Start Last Admin Trade Name Freq PRN Reason Stop Dose Admin Acetaminophen 650 mg 09/06/25 18:10 Acetaminophen 650 Mg Suppository RECTAL Q6H PRN Mild Pain (1-3) or Fever Albuterol/Ipratropium 3 ml 09/06/25 18:09 Ipratropium 0.5 Mg/Albuterol Sulfate 2.5 Mg (Base) Ampul.Neb 3 Ml INHALATION Q6HRT PRN copd Dextrose 12.5 gm 09/06/25 18:09 Dextrose 50% 25 Gm/50 Ml Syringe IV PUSH PRN PRN Hypoglycemia Protocol Glucagon 1 mg 09/06/25 18:09 Glucagon For Inj 1 Mg Vial IM PRN PRN Hypoglycemia Protocol Glucose 15 gm 09/06/25 18:09 Glucose Oral Gel 15 Gm Of Glucse In 37.5 Gm Tube PO PRN PRN Hypoglycemia Protocol Dextrose 1,000 mls @ 100 mls/hr 09/06/25 18:09 Dextrose 5% 1,000 Ml IVPB PRN PRN Hypoglycemia Protocol Dextrose 1,000 mls @ 50 mls/hr 09/09/25 13:59 Dextrose 10% IV CONT .Q20H PRN if PN is interrupted Multivitamins 1.25 ml/ 1,002.5 mls @ 60 mls/hr 09/09/25 15:00 09/13/25 08:37 Multivitamins 1.25 ml/ Amino IV CONT 60 mls/hr Acids/Electrolytes/Dextrose .[id number] MICAH Administration Protocol Fat Emulsion Intravenous 250 mls @ 20.833 mls/hr 09/09/25 15:00 09/13/25 02:20 Lipids 20% IVPB Infused Q24H MICAH Infusion Insulin Human Regular 0 units 09/09/25 18:00 09/13/25 12:27 Insulin Human Regular (*Bkc) 100 Units/Ml SUB-Q Not Given Q6HR MICAH Protocol Morphine Sulfate 1 mg 09/12/25 15:04 09/12/25 16:05 Morphine Sulfate (*Crx) 4 Mg/Ml Inj IV PUSH 1 mg ONCE PRN Administration prior to wound dressing changes Sodium Chloride 10 ml 09/07/25 14:00 09/13/25 05:52 Central Line Flush IV PUSH 10 ml Q8HR MICAH Administration Sodium Chloride 20 ml 09/07/25 10:44 Central Line Flush IV PUSH PRN PRN after blood draws Sodium Hypochlorite 1 applic 09/07/25 14:00 09/12/25 16:07 Sod Hypochlorite 1/4 Strength 473 Ml TOPICAL 1 applic DAILY MICAH Administration Radiology Results: ITS Impressions Chest X-Ray 09/06/25 12:50 Impression: No acute cardiopulmonary abnormality. Chest/Abdomen/Pelvis CTA 09/06/25 14:07 IMPRESSION: 1. Filling defect right upper and middle lobe segmental and subsegmental pulmonary artery consistent with pulmonary embolism, small thrombus burden. 2: Interval development of extensive mural thickening and enhancement within the bladder wall, consistent with cystitis. No evidence for bladder fistula. Mondragon catheter present. 3: Extensive subcutaneous edema with small volume of ascites, consistent with anasarca. Dr. Tariq Rivero discussed with Dr. Hector Pritchard MD at 09/06/2025 14:17 SENIOR COMPUTER SPECIALIST. Renal Ultrasound 09/06/25 21:28 IMPRESSION: There is a Mondragon catheter within the bladder. Left renal cyst measures 2 cm. Venous Doppler Study 09/07/25 14:37 Impression: Negative for DVT. Labs Labs: Laboratory Results - last 24 hr 09/08/25 09/12/25 09/12/25 21:33 16:22 17:59 Sodium Potassium Chloride Carbon Dioxide Anion Gap BUN Creatinine Estim Creat Clear Calc Estimated GFR Glucose POC Capillary Glucose 145 H Calcium Phosphorus Liz Transferrin Receptr 12.3 Procalcitonin 0.3 09/12/25 09/13/25 09/13/25 23:32 05:12 05:38 Sodium 151 H Potassium 3.9 Chloride 116 H Carbon Dioxide 34 H Anion Gap 1 L BUN 20 Creatinine 0.61 L Estim Creat Clear Calc 82 Estimated GFR > 60 Glucose 147 H POC Capillary Glucose 167 H 152 H Calcium 8.4 Phosphorus 2.8 Liz Transferrin Receptr Procalcitonin 09/13/25 11:10 Sodium Potassium Chloride Carbon Dioxide Anion Gap BUN Creatinine Estim Creat Clear Calc Estimated GFR Glucose POC Capillary Glucose 144 H Calcium Phosphorus Liz Transferrin Receptr Procalcitonin
[2025-09-13] MEDS: SOD HYPOCHLORITE 1/4 STRENGTH 473 ML 1 APPLIC TOPICAL (14:23)
[2025-09-13] MEDS: FAT EMULSIONS IV 20% 250 ML 21 ML IVPB (14:23)
[2025-09-13] MEDS: MORPHINE SULFATE (*CRX) 4 MG/ML INJ 1 MG IV PUSH (14:26)
--- NOTE | 2025-09-13 17:27 | PM.IMPN ---
Progress Note: A&P Assessment and Plan (1) Septic shock: Code(s): A41.9 - Sepsis, unspecified organism; R65.21 - Severe sepsis with septic shock Status: Acute Assessment and Plan: Sepsis secondary to UTI. Now resolved. Urine culture and blood cultures positive for Proteus mirabilis. Multidrug resistant. Cefepime changed to ceftriaxone, completed 7 days. Repeat blood cultures pending. (2) Pulmonary embolism: Code(s): I26.99 - Other pulmonary embolism without acute cor pulmonale Status: Acute Assessment and Plan: CTA confirmed PE. In light of significant hematuria and drop in hemoglobin is anticoagulation was started but then held. Hematology consulted. IVC filter not advise as patient did not have evidence of DVT. On 09/13/2025 CBI has been off and urine without any further hematuria. Today we will restart anticoagulation with heparin GTT. If patient is able to take p.o. and he has no further bleeding, transition to oral anticoagulant. (3) CHELSEA (acute kidney injury): Code(s): N17.9 - Acute kidney failure, unspecified Status: Resolved Assessment and Plan: Secondary to sepsis hypotension and hypovolemia Renal function improved with IV fluids Creatinine now normalized Monitor urine output electrolytes and creatinine (4) Acute hemorrhagic cystitis: Code(s): N30.01 - Acute cystitis with hematuria Status: Acute Assessment and Plan: Associated with UTI. CBI has been off, will try to restart heparin today and assess for any further hematuria. Patient refused for the catheter to be downsized. Continue to appreciate Urology recommendations. (5) COPD (chronic obstructive pulmonary disease): Qualifiers: COPD type: unspecified COPD Qualified Code(s): J44.9 - Chronic obstructive pulmonary disease, unspecified Code(s): J44.9 - Chronic obstructive pulmonary disease, unspecified Status: Chronic Assessment and Plan: Bronchodilators p.r.n., breathing comfortably (6) Hypokalemia: Code(s): E87.6 - Hypokalemia Status: Acute Assessment and Plan: Resolved status post replacement. Continue daily BMP and magnesium checks. Currently on TPN. (7) Failure to thrive in adult: Code(s): R62.7 - Adult failure to thrive Status: Acute Assessment and Plan: Patient has been NPO since transfer from ICU. Per patient's daughter Odalys, he has been having significant issues with swallowing in the time just prior to admission. Could be due to significant weakness secondary to sepsis/septic shock with or without element of MS the patient has history of. Patient has refused PEG tube. TPN has started. TPN rate increased on 09/12/2025, transferrin was low. Continue to monitor electrolytes, transferrin. Monitor for refeeding syndrome. Continue telemetry. Spoke with speech therapy, will try a barium swallow again today on 09/13/2025 and monitor progress. An unusual option is for the patient to be on long-term TPN however that does not come without risk. At any rate, I am told by care coordinators the local nursing facilities do not allow TPN. Therefore, patient will either need to improve and be able to eat, have a PEG tube, or have hospice consulted. (8) Positive result for methicillin resistant Staphylococcus aureus (MRSA) screening: Code(s): Z22.322 - Carrier or suspected carrier of Methicillin resistant Staphylococcus aureus Status: Acute Assessment and Plan: Contact isolation precautions (9) Pressure ulcers of skin of multiple topographic sites: Code(s): L89.90 - Pressure ulcer of unspecified site, unspecified stage Status: Acute Assessment and Plan: Pressure ulcers on sacrum, left hip, bilateral heels, bilateral ankles. Wound care is on board IV morphine prior to dressing changes due to severe pain. We discussed the risks versus benefits. It has been helping greatly. (10) Hypernatremia: Code(s): E87.0 - Hyperosmolality and hypernatremia Status: Acute Assessment and Plan: Hypernatremia improving with TPN. Continue to monitor. (11) Multiple sclerosis: Code(s): G35 - Multiple sclerosis Status: Chronic Assessment and Plan: Seen by Neurology this admission. Patient's mental status waxes and wanes. Continue to monitor. Plan TPN, monitor for refeeding syndrome. Continue telemetry. Speech and dietitian consulted. Barium swallow on 09/13/2025 Restart heparin GTT on 09/13/2025 Wound care, boots. SCDs. Saline lock IV DNR Subjective Date/time seen: 09/13/25 17:27 Interval history: 69 y/o M with PMH of multiple sclerosis, COPD, bedbound, and decubitus ulcer presents here with altered mental status. The patient presents here from a local [facility] on 09/06 for further evaluation of altered mental status. HPI obtained through chart review, EMS report, ED provider report, and family report as the patient is altered. Per EMS, they were not provided with much information about the patient beyond that he was more altered than usual. Per chart review, the patient was recently admitted here from 07/26/2025 to 08/11/2025 for altered mental status, sepsis (UTI and/or decubitus ulcer), decubitus ulcer to the sacrum, left heel, and right lateral foot. He underwent a sharp excisional debridement of his stage IV sacral decubitus ulcer on 07/27/2025. During his stay he had acute respiratory distress which was felt to be secondary to a CHF exacerbation for which he was gently diuresed, echo showed grade 1 diastolic dysfunction with a preserved EF. Patient's altered mental status was contributed to metabolic encephalopathy, may have been exacerbated by a B12/vitamin-D deficiency. Patient also developed a postop ileus for which he was treated with MiraLax and Senokot. Patient was also evaluated by Infectious Disease due to his urine culture growing Nehal orthopsilosis, however the did not feel it with pathogenic at that time. ----- 09/13/2025: No acute overnight events. Patient rests comfortably. Review of Systems Review of Systems: All systems reviewed & are unremarkable except as noted in HPI and below ROS unobtainable: Yes unobtainable due to medical condition and unobtainable due to mental status Exam Const: Other: Pt laying in bed, responsive to questions HENMT: Mouth: Yes dry mucous membranes Eyes: General: appearance normal, both eyes and all related structures Neck: Other: L IJ in place Resp: Effort & Inspection: normal respiratory effort Cardio: Rate: regular rate Rhythm: regular rhythm GI: GI Palp: Yes Soft to palpation and No Tenderness to palpation present (GI) Urinary Catheter: Urinary Catheter: patent and draining and urine clear Skin: General skin exam: normal color Other: Sacral, left hip, bilateral heels, bilateral ankle pressure ulcers Neuro: Other: Moves all 4 extremities freely Extrem: General: no edema Objective Data Vital Signs Vital Signs: Vital Signs - 24 hr 09/12/25 20:00 09/12/25 20:00 09/13/25 00:00 Temperature 97.9 F Pulse Rate 77 75 70 Respiratory Rate 12 Blood Pressure 110/72 Pulse Oximetry 97 Oxygen Delivery Oxygen Flow Rate 09/13/25 00:00 09/13/25 02:00 09/13/25 04:00 Temperature 97.4 F L Pulse Rate 70 65 94 Respiratory Rate 20 Blood Pressure 112/61 Pulse Oximetry 99 Oxygen Delivery Oxygen Flow Rate 09/13/25 04:00 09/13/25 08:00 09/13/25 08:00 Temperature 97.5 F L 97.8 F Pulse Rate 62 74 Respiratory Rate 14 20 Blood Pressure 123/61 120/69 Pulse Oximetry 98 97 94 Oxygen Delivery Nasal Cannula Oxygen Flow Rate 2 09/13/25 08:00 09/13/25 08:00 09/13/25 11:48 Temperature 97.7 F Pulse Rate 67 74 Respiratory Rate 24 H Blood Pressure 125/65 Pulse Oximetry 94 99 Oxygen Delivery Nasal Cannula Oxygen Flow Rate 2 09/13/25 12:00 09/13/25 16:00 09/13/25 16:00 Temperature 98.5 F Pulse Rate 70 73 Respiratory Rate 16 Blood Pressure 128/70 Pulse Oximetry 100 94 Oxygen Delivery Nasal Cannula Oxygen Flow Rate 2 09/13/25 16:00 Temperature Pulse Rate 69 Respiratory Rate Blood Pressure Pulse Oximetry Oxygen Delivery Oxygen Flow Rate Intake/Output Intake/Output: Intake & Output 09/10/25 09/11/25 09/12/25 09/13/25 23:59 23:59 23:59 23:59 Intake Total 1466.7 2449.3 1241.7 976.7 Output Total 2900 1550 2570 450 Balance -1433.3 899.3 -1328.3 526.7 Meds/Results Medications: Active Medications Generic Name Dose Route Start Last Admin Trade Name Freq PRN Reason Stop Dose Admin Acetaminophen 650 mg 09/06/25 18:10 Acetaminophen 650 Mg Suppository RECTAL Q6H PRN Mild Pain (1-3) or Fever Albuterol/Ipratropium 3 ml 09/06/25 18:09 Ipratropium 0.5 Mg/Albuterol Sulfate 2.5 Mg (Base) Ampul.Neb 3 Ml INHALATION Q6HRT PRN copd Dextrose 12.5 gm 09/06/25 18:09 Dextrose 50% 25 Gm/50 Ml Syringe IV PUSH PRN PRN Hypoglycemia Protocol Glucagon 1 mg 09/06/25 18:09 Glucagon For Inj 1 Mg Vial IM PRN PRN Hypoglycemia Protocol Glucose 15 gm 09/06/25 18:09 Glucose Oral Gel 15 Gm Of Glucse In 37.5 Gm Tube PO PRN PRN Hypoglycemia Protocol Dextrose 1,000 mls @ 100 mls/hr 09/06/25 18:09 Dextrose 5% 1,000 Ml IVPB PRN PRN Hypoglycemia Protocol Dextrose 1,000 mls @ 50 mls/hr 09/09/25 13:59 Dextrose 10% IV CONT .Q20H PRN if PN is interrupted Multivitamins 1.25 ml/ 1,002.5 mls @ 60 mls/hr 09/09/25 15:00 09/13/25 08:37 Multivitamins 1.25 ml/ Amino IV CONT 60 mls/hr Acids/Electrolytes/Dextrose .[id number] MICAH Administration Protocol Fat Emulsion Intravenous 250 mls @ 20.833 mls/hr 09/09/25 15:00 09/13/25 14:23 Lipids 20% IVPB 21 mls/hr Q24H MICAH Administration Insulin Human Regular 0 units 09/09/25 18:00 09/13/25 12:27 Insulin Human Regular (*Bkc) 100 Units/Ml SUB-Q Not Given Q6HR MICAH Protocol Morphine Sulfate 1 mg 09/13/25 14:17 09/13/25 14:26 Morphine Sulfate (*Crx) 4 Mg/Ml Inj IV PUSH 1 mg PRN PRN Administration prior to wound dressing changes Sodium Chloride 10 ml 09/07/25 14:00 09/13/25 14:24 Central Line Flush IV PUSH 10 ml Q8HR MICAH Administration Sodium Chloride 20 ml 09/07/25 10:44 Central Line Flush IV PUSH PRN PRN after blood draws Sodium Hypochlorite 1 applic 09/07/25 14:00 09/13/25 14:23 Sod Hypochlorite 1/4 Strength 473 Ml TOPICAL 1 applic DAILY MICAH Administration Radiology Results: ITS Impressions Chest X-Ray 09/06/25 12:50 Impression: No acute cardiopulmonary abnormality. Chest/Abdomen/Pelvis CTA 09/06/25 14:07 IMPRESSION: 1. Filling defect right upper and middle lobe segmental and subsegmental pulmonary artery consistent with pulmonary embolism, small thrombus burden. 2: Interval development of extensive mural thickening and enhancement within the bladder wall, consistent with cystitis. No evidence for bladder fistula. Mondragon catheter present. 3: Extensive subcutaneous edema with small volume of ascites, consistent with anasarca. Dr. Tariq Rivero discussed with Dr. Hector Pritchard MD at 09/06/2025 14:17 DYE AND CHEMICAL COORDINATOR. Renal Ultrasound 09/06/25 21:28 IMPRESSION: There is a Mondragon catheter within the bladder. Left renal cyst measures 2 cm. Venous Doppler Study 09/07/25 14:37 Impression: Negative for DVT. Labs Labs: Laboratory Results - last 24 hr 09/12/25 09/12/25 09/13/25 17:59 23:32 05:12 Sodium 151 H Potassium 3.9 Chloride 116 H Carbon Dioxide 34 H Anion Gap 1 L BUN 20 Creatinine 0.61 L Estim Creat Clear Calc 82 Estimated GFR > 60 Glucose 147 H POC Capillary Glucose 167 H Calcium 8.4 Phosphorus 2.8 Procalcitonin 0.3 09/13/25 09/13/25 05:38 11:10 Sodium Potassium Chloride Carbon Dioxide Anion Gap BUN Creatinine Estim Creat Clear Calc Estimated GFR Glucose POC Capillary Glucose 152 H 144 H Calcium Phosphorus Procalcitonin Hospitalist MIPS Advance Care Plan I have confirmed that the patient's Advanced Care Plan is present, code status is documented, or surrogate decision maker is listed in patient medical record.: Yes Medication Reconciliation I have utilized all available resources to obtain, update and review the patients current medications (includes all prescriptions, OTC, herbals, cannabis, and nutritional supplements).: Yes
--- NOTE | 2025-09-13 18:18 | PC.NURSE ---
This patient, Bashir Navarrost Siddiqui, was received from IMU on 09/13/25 at 1818. Patient/family oriented to unit policies and routines
[2025-09-13] MEDS: HEPARIN SOD/D5W 100 UNITS/ML 25,000 UNITS/250 ML BAG 10 UNITS IV CONT (18:29)
[2025-09-14] VITALS (10 sets, daily range): BP systolic 120–129; BP diastolic 61–75; PULSE 70–106; RESP 16–17; TEMP 36.1–36.8; O2SAT 90–97
[2025-09-14 00:49] LABS: Partial Thromboplastin Time 43.4 Seconds (22.3-36.8)
[2025-09-14] MEDS: AMINO ACIDS 5%/D15W/E-LYTES/CA 1,000 ML with MULTIVITAMINS-12 INJ VIAL 1 1.25 ML, MULTI... 60 ML IV CONT ×2 (02:17→18:24)
[2025-09-14] MEDS: MORPHINE SULFATE (*CRX) 4 MG/ML INJ 1 MG IV PUSH ×3 (02:25→16:20)
[2025-09-14] MEDS: CENTRAL LINE FLUSH 10 ML IV PUSH ×3 (06:04→22:16)
[2025-09-14 07:32] LABS: Hematocrit 37.6 % (42.0-52.0); Hemoglobin 11.1 g/dL (14.0-18.0); Immature Granulocyte Percent A 1.4 % (0-0.5); Lymphocytes Absolute Auto 2.57 K/mm3 (0.9-3.2); Mean Corpuscular HGB Conc 29.5 g/dl (32-36); Mean Corpuscular Hemoglobin 28.8 pg (26-34); Mean Corpuscular Volume 97.4 fl (80-100); Nucleated Red Blood Cells Absolute Auto 0.000 K/mm3 (0.0-0.012); Nucleated Red Blood Cells Perc 0.0 % (0.0-0.2); Platelet Count Result 214 k/mm3 (150-375); Red Blood Count 3.86 M/mm3 (4.6-6.20); White Blood Count 14.6 K/mm3 (4.5-10.0)
[2025-09-14 07:46] LABS: INR 1.1; Prothrombin Time 14.2 Seconds (11.1-14.7)
[2025-09-14 07:48] LABS: Partial Thromboplastin Time 99.6 Seconds (22.3-36.8)
[2025-09-14 07:50] LABS: Hypochromasia 1+; Schistocytes None Seen
[2025-09-14 08:48] LABS: Anion Gap 1 mmol/L (4-12); Blood Urea Nitrogen 20 mg/dL (9-20); Calcium 8.5 mg/dL (8.4-10.2); Carbon Dioxide 35 mmol/L (22-30); Chloride 115 mmol/L (98-107); Estimated CRCL calculation 89 ml/min; Estimated Glomerular Filt Rate > 60; Glucose 129 mg/dL (65-110); Potassium 3.8 mmol/L (3.4-5.0); Sodium 151 mmol/L (137-145)
--- NOTE | 2025-09-14 11:56 | P.PNIM_ITS ---
Progress Note: A&P Assessment and Plan (1) Septic shock: Code(s): A41.9 - Sepsis, unspecified organism; R65.21 - Severe sepsis with septic shock Status: Acute Assessment and Plan: Sepsis secondary to UTI. Now resolved. Urine culture and blood cultures positive for Proteus mirabilis. Multidrug resistant. Cefepime changed to ceftriaxone, completed 7 days. Repeat blood cultures pending. (2) Pulmonary embolism: Code(s): I26.99 - Other pulmonary embolism without acute cor pulmonale Status: Acute Assessment and Plan: CTA confirmed PE. In light of significant hematuria and drop in hemoglobin is anticoagulation was started but then held. Hematology consulted. IVC filter not advise as patient did not have evidence of DVT. On 09/13/2025 CBI has been off and urine without any further hematuria. Was restarted on anticoagulation with heparin GTT on 09/13. If patient is able to take p.o. and he has no further bleeding, transition to oral anticoagulant. follow up results for modified barium swallow to transition to oral anticoagulant (3) CHELSEA (acute kidney injury): Code(s): N17.9 - Acute kidney failure, unspecified Status: Resolved Assessment and Plan: Secondary to sepsis hypotension and hypovolemia Renal function improved with IV fluids Creatinine now normalized Monitor urine output electrolytes and creatinine (4) Acute hemorrhagic cystitis: Code(s): N30.01 - Acute cystitis with hematuria Status: Acute Assessment and Plan: Associated with UTI. CBI has been off, will restart heparin 09/13 and assess for any further hematuria. Patient refused for the catheter to be downsized. Continue to appreciate Urology recommendations. (5) COPD (chronic obstructive pulmonary disease): Qualifiers: COPD type: unspecified COPD Qualified Code(s): J44.9 - Chronic obstructive pulmonary disease, unspecified Code(s): J44.9 - Chronic obstructive pulmonary disease, unspecified Status: Chronic Assessment and Plan: Bronchodilators p.r.n., breathing comfortably (6) Hypokalemia: Code(s): E87.6 - Hypokalemia Status: Acute Assessment and Plan: Resolved status post replacement. Continue daily BMP and magnesium checks. Currently on TPN. (7) Failure to thrive in adult: Code(s): R62.7 - Adult failure to thrive Status: Acute Assessment and Plan: Patient has been NPO since transfer from ICU. Per patient's daughter Odalys, he has been having significant issues with swallowing in the time just prior to admission. Could be due to significant weakness secondary to sepsis/septic shock with or without element of MS the patient has history of. Patient has refused PEG tube. TPN has started. TPN rate increased on 09/12/2025, transferrin was low. Continue to monitor electrolytes, transferrin. Monitor for refeeding syndrome. Continue telemetry. Spoke with speech therapy, will try a barium swallow again and monitor progress. An unusual option is for the patient to be on long-term TPN however that does not come without risk. At any rate, I am told by care coordinators the local nursing facilities do not allow TPN. Therefore, patient will either need to improve and be able to eat, have a PEG tube, or have hospice consulted. Patient getting ready to go down for his modified barium swallow during my visit. Follow up for diet recommendations. (8) Positive result for methicillin resistant Staphylococcus aureus (MRSA) screening: Code(s): Z22.322 - Carrier or suspected carrier of Methicillin resistant Staphylococcus aureus Status: Acute Assessment and Plan: Contact isolation precautions (9) Pressure ulcers of skin of multiple topographic sites: Code(s): L89.90 - Pressure ulcer of unspecified site, unspecified stage Status: Acute Assessment and Plan: Pressure ulcers on sacrum, left hip, bilateral heels, bilateral ankles. Wound care is on board IV morphine prior to dressing changes due to severe pain. We discussed the risks versus benefits. It has been helping greatly. (10) Hypernatremia: Code(s): E87.0 - Hyperosmolality and hypernatremia Status: Acute Assessment and Plan: Hypernatremia improving with TPN. Continue to monitor. (11) Multiple sclerosis: Code(s): G35 - Multiple sclerosis Status: Chronic Assessment and Plan: Seen by Neurology this admission. Patient's mental status waxes and wanes. Continue to monitor. Subjective Date/time seen: 09/14/25 11:56 Interval history: Patient seen for a follow up visit. Patient lying in bed, in no acute distress. Patient given IV morphine to be positioned in a chair for his modified barium swallow. Patient is currently NPO, on TPN for nutrition. Patient denies acute pain during my exam. Patient's wbc count is slowly improving. Patient is on heparin drip and currently has no signs of bleeding. Continue to monitor closely with plans to transition to oral anticoagulation if patient is able to take PO medications. Review of Systems Review of Systems: All systems reviewed & are unremarkable except as noted in HPI and below ROS unobtainable: Yes unobtainable due to medical condition and unobtainable due to mental status Exam Const: General: comfortable and no acute distress Eyes: General: appearance normal, both eyes and all related structures Neck: Other: L IJ in place Resp: Effort & Inspection: normal respiratory effort Auscultation: clear to auscultation bilaterally Cardio: Rate: regular rate Rhythm: regular rhythm GI: GI Palp: Yes Soft to palpation and No Tenderness to palpation present (GI) Urinary Catheter: Urinary Catheter: patent and draining and urine clear Skin: General skin exam: normal color Other: Sacral, left hip, bilateral heels, bilateral ankle pressure ulcers Neuro: Other: Moves all 4 extremities freely Extrem: General: no edema Objective Data Vital Signs Vital Signs: Vital Signs - 24 hr 09/13/25 12:00 09/13/25 16:00 09/13/25 16:00 Temperature 98.5 F Pulse Rate 70 73 Respiratory Rate 16 Blood Pressure 128/70 Pulse Oximetry 100 94 Oxygen Delivery Nasal Cannula Oxygen Flow Rate 2 Fraction of Inspired Oxygen 09/13/25 16:00 09/13/25 18:52 09/13/25 20:00 Temperature 98.5 F Pulse Rate 69 83 78 Respiratory Rate 18 Blood Pressure 121/70 Pulse Oximetry 95 Oxygen Delivery Oxygen Flow Rate Fraction of Inspired Oxygen 09/13/25 20:10 09/13/25 21:51 09/14/25 00:00 Temperature 97.9 F Pulse Rate 83 83 70 Respiratory Rate 20 20 Blood Pressure 119/60 Pulse Oximetry 95 95 Oxygen Delivery Nasal Cannula Oxygen Flow Rate 2 Fraction of Inspired Oxygen 36 09/14/25 04:00 09/14/25 05:30 Temperature 97.1 F L Pulse Rate 75 80 Respiratory Rate 16 Blood Pressure 120/61 Pulse Oximetry 90 Oxygen Delivery Oxygen Flow Rate Fraction of Inspired Oxygen Intake/Output Intake/Output: Intake & Output 09/11/25 09/12/25 09/13/25 09/14/25 23:59 23:59 23:59 23:59 Intake Total 2449.3 1241.7 976.7 1370.5 Output Total 1550 2570 1100 450 Balance 899.3 -1328.3 -123.3 920.5 Meds/Results Medications: Active Medications Generic Name Dose Route Start Last Admin Trade Name Freq PRN Reason Stop Dose Admin Acetaminophen 650 mg 09/06/25 18:10 Acetaminophen 650 Mg Suppository RECTAL Q6H PRN Mild Pain (1-3) or Fever Albuterol/Ipratropium 3 ml 09/06/25 18:09 Ipratropium 0.5 Mg/Albuterol Sulfate 2.5 Mg (Base) Ampul.Neb 3 Ml INHALATION Q6HRT PRN copd Dextrose 12.5 gm 09/06/25 18:09 Dextrose 50% 25 Gm/50 Ml Syringe IV PUSH PRN PRN Hypoglycemia Protocol Glucagon 1 mg 09/06/25 18:09 Glucagon For Inj 1 Mg Vial IM PRN PRN Hypoglycemia Protocol Glucose 15 gm 09/06/25 18:09 Glucose Oral Gel 15 Gm Of Glucse In 37.5 Gm Tube PO PRN PRN Hypoglycemia Protocol Heparin Sodium (Porcine) 4,500 units 09/13/25 17:34 09/14/25 01:19 Heparin Sodium 5,000 Units/Ml Vial IV PUSH 4,500 units PRN PRN Administration aPTT less than 55 seconds Heparin Sodium (Porcine) 2,500 units 09/13/25 17:34 Heparin Sodium 5,000 Units/Ml Vial IV PUSH PRN PRN aPTT 55 - 70 seconds Dextrose 1,000 mls @ 100 mls/hr 09/06/25 18:09 Dextrose 5% 1,000 Ml IVPB PRN PRN Hypoglycemia Protocol Dextrose 1,000 mls @ 50 mls/hr 09/09/25 13:59 Dextrose 10% IV CONT .Q20H PRN if PN is interrupted Multivitamins 1.25 ml/ 1,002.5 mls @ 60 mls/hr 09/09/25 15:00 09/14/25 02:17 Multivitamins 1.25 ml/ Amino IV CONT 60 mls/hr Acids/Electrolytes/Dextrose .[id number] MICAH Administration Protocol Fat Emulsion Intravenous 250 mls @ 20.833 mls/hr 09/09/25 15:00 09/14/25 02:18 Lipids 20% IVPB Infused Q24H MICAH Infusion Heparin Sodium/Dextrose 25,000 units in 250 mls @ 12 mls/hr 09/13/25 17:35 09/14/25 01:17 Heparin Sodium/D5w 100 Units/Ml IV CONT 1,200 units/hr .[id number] MICAH 12 mls/hr Protocol Titration 1,200 UNITS/HR Insulin Human Regular 0 units 09/09/25 18:00 09/14/25 06:04 Insulin Human Regular (*Bkc) 100 Units/Ml SUB-Q Not Given Q6HR [facility] Protocol Morphine Sulfate 1 mg 09/13/25 14:17 09/14/25 02:25 Morphine Sulfate (*Crx) 4 Mg/Ml Inj IV PUSH 1 mg PRN PRN Administration prior to wound dressing changes Sodium Chloride 10 ml 09/07/25 14:00 09/14/25 06:04 Central Line Flush IV PUSH 10 ml Q8HR MICAH Administration Sodium Chloride 20 ml 09/07/25 10:44 Central Line Flush IV PUSH PRN PRN after blood draws Sodium Hypochlorite 1 applic 09/07/25 14:00 09/13/25 14:23 Sod Hypochlorite 1/4 Strength 473 Ml TOPICAL 1 applic DAILY MICAH Administration Radiology Results: ITS Impressions Chest X-Ray 09/06/25 12:50 Impression: No acute cardiopulmonary abnormality. Chest/Abdomen/Pelvis CTA 09/06/25 14:07 IMPRESSION: 1. Filling defect right upper and middle lobe segmental and subsegmental pulmonary artery consistent with pulmonary embolism, small thrombus burden. 2: Interval development of extensive mural thickening and enhancement within the bladder wall, consistent with cystitis. No evidence for bladder fistula. Mondragon catheter present. 3: Extensive subcutaneous edema with small volume of ascites, consistent with anasarca. Dr. Tariq Rivero discussed with Dr. Hector Pritchard MD at 09/06/2025 14:17 MANAGER ONLINE. Renal Ultrasound 09/06/25 21:28 IMPRESSION: There is a Mondragon catheter within the bladder. Left renal cyst measures 2 cm. Venous Doppler Study 09/07/25 14:37 Impression: Negative for DVT. Labs Labs: Laboratory Results - last 24 hr 09/13/25 09/14/25 09/14/25 18:24 00:13 00:31 WBC RBC Hgb Hct MCV MCH MCHC RDW Plt Count MPV Immature Gran % (Auto) Neut % (Auto) Lymph % (Auto) [place] % (Auto) Eos % (Auto) Baso % (Auto) Lymph # (Auto) [place] # (Auto) Eos # (Auto) Baso # (Auto) Abs Immat Gran (auto) Absolute Neuts (auto) Absolute Nucleated RBC Band Neutrophils % Nucleated RBC % Platelet Estimate Hypochromasia Schistocytes PT INR APTT 43.4 H Sodium Potassium Chloride Carbon Dioxide Anion Gap BUN Creatinine Estim Creat Clear Calc Estimated GFR Glucose POC Capillary Glucose 103 156 H Calcium Phosphorus 09/14/25 09/14/25 05:24 07:15 WBC 14.6 H RBC 3.86 L Hgb 11.1 L Hct 37.6 L MCV 97.4 MCH 28.8 MCHC 29.5 L RDW 16.8 H Plt Count 214 MPV 12.6 H Immature Gran % (Auto) 1.4 H Neut % (Auto) 73.9 H Lymph % (Auto) 17.6 L [place] % (Auto) 4.6 Eos % (Auto) 2.3 Baso % (Auto) 0.2 Lymph # (Auto) 2.57 [place] # (Auto) 0.7 H Eos # (Auto) 0.3 Baso # (Auto) 0.0 Abs Immat Gran (auto) 0.21 H Absolute Neuts (auto) 10.8 H Absolute Nucleated RBC 0.000 Band Neutrophils % Not Reportable Nucleated RBC % 0.0 Platelet Estimate Adequate Hypochromasia 1+ Schistocytes None seen PT 14.2 INR 1.1 APTT 99.6 H Sodium 151 H Potassium 3.8 Chloride 115 H Carbon Dioxide 35 H Anion Gap 1 L BUN 20 Creatinine 0.56 L Estim Creat Clear Calc 89 Estimated GFR > 60 Glucose 129 H POC Capillary Glucose 155 H Calcium 8.5 Phosphorus 3.1 Quality VTE Prophylaxis VTE prophylaxis: pharmacologic ordered Hospitalist MIPS Advance Care Plan I have confirmed that the patient's Advanced Care Plan is present, code status is documented, or surrogate decision maker is listed in patient medical record.: Yes Medication Reconciliation I have utilized all available resources to obtain, update and review the patients current medications (includes all prescriptions, OTC, herbals, cannabis, and nutritional supplements).: Yes
[2025-09-14 13:53] LABS: Partial Thromboplastin Time 82.0 Seconds (22.3-36.8)
[2025-09-14 13:59] LABS: Triglycerides 105 mg/dL (<150)
--- NOTE | 2025-09-14 14:11 | PCDIET ---
Nutrition note: Pt had MBS today and advanced to Puree L4 diet with L2 mildly thickened liquids. Per provider, to continue TPN until pt is tolerating diet. Adding supplements Ensure HP plus TID (350 kcal, 20 g protein each), L2 thickened.
[2025-09-14] MEDS: FAT EMULSIONS IV 20% 250 ML 21 ML IVPB (16:20)
[2025-09-14] MEDS: HEPARIN SOD/D5W 100 UNITS/ML 25,000 UNITS/250 ML BAG 12 UNITS IV CONT (17:11)
[2025-09-14] MEDS: SOD HYPOCHLORITE 1/4 STRENGTH 473 ML 1 APPLIC TOPICAL (17:19)
[2025-09-14] MEDS: ALTEPLASE 2 MG VIAL (CATHFLO) IV PUSH (22:49)
[2025-09-15] VITALS (9 sets, daily range): BP systolic 112–127; BP diastolic 60–68; PULSE 63–111; RESP 14–18; TEMP 36.2–36.9; O2SAT 92–100
[2025-09-15] MEDS: ALTEPLASE 2 MG VIAL (CATHFLO) IV PUSH (05:20)
[2025-09-15] MEDS: CENTRAL LINE FLUSH 20 ML IV PUSH (05:25)
[2025-09-15] MEDS: CENTRAL LINE FLUSH 10 ML IV PUSH ×3 (05:25→21:56)
[2025-09-15 05:38] LABS: Hematocrit 34.5 % (42.0-52.0); Hemoglobin 10.2 g/dL (14.0-18.0); Immature Granulocyte Percent A 2.2 % (0-0.5); Lymphocytes Absolute Auto 3.39 K/mm3 (0.9-3.2); Mean Corpuscular HGB Conc 29.6 g/dl (32-36); Mean Corpuscular Hemoglobin 29.1 pg (26-34); Mean Corpuscular Volume 98.6 fl (80-100); Nucleated Red Blood Cells Absolute Auto 0.000 K/mm3 (0.0-0.012); Nucleated Red Blood Cells Perc 0.0 % (0.0-0.2); Platelet Count Result 250 k/mm3 (150-375); Red Blood Count 3.50 M/mm3 (4.6-6.20); White Blood Count 17.9 K/mm3 (4.5-10.0)
[2025-09-15 05:46] LABS: Partial Thromboplastin Time 84.3 Seconds (22.3-36.8)
[2025-09-15 05:49] LABS: Alanine Aminotransferase 35 U/L (6-50); Albumin Level 2.5 g/dL (3.5-5.1); Alkaline Phosphatase 81 U/L (38-126); Anion Gap 1 mmol/L (4-12); Aspartate Amino Transferase 27 U/L (17-59); Bilirubin,Total 0.3 mg/dL (0.2-1.3); Blood Urea Nitrogen 19 mg/dL (9-20); Calcium 8.0 mg/dL (8.4-10.2); Carbon Dioxide 33 mmol/L (22-30); Chloride 111 mmol/L (98-107); Estimated CRCL calculation 108 ml/min; Estimated Glomerular Filt Rate > 60; Glucose 131 mg/dL (65-110); Magnesium 2.2 mg/dL (1.6-2.3); Potassium 3.1 mmol/L (3.4-5.0); Sodium 145 mmol/L (137-145); Total Protein 5.4 g/dL (6.3-8.2)
[2025-09-15 06:18] LABS: Hypochromasia 1+; Schistocytes None Seen
[2025-09-15] MEDS: POTASSIUM CHLORIDE INJ 40 MEQ in SODIUM CHLORIDE 0.9% IV 500 ML 130 MEQ IVPB (09:01)
--- NOTE | 2025-09-15 11:04 | P.PNIM_ITS ---
Progress Note: A&P Assessment and Plan (1) Septic shock: Code(s): A41.9 - Sepsis, unspecified organism; R65.21 - Severe sepsis with septic shock Status: Acute Assessment and Plan: Sepsis secondary to UTI. Now resolved. Urine culture and blood cultures positive for Proteus mirabilis. Multidrug resistant. Cefepime changed to ceftriaxone, completed 7 days. Repeat blood cultures pending. wbc increased from 14.6 to 17.9 on today's labs AM labs ordered (2) Pulmonary embolism: Code(s): I26.99 - Other pulmonary embolism without acute cor pulmonale Status: Acute Assessment and Plan: CTA confirmed PE. In light of significant hematuria and drop in hemoglobin is anticoagulation was started but then held. Hematology consulted. IVC filter not advise as patient did not have evidence of DVT. On 09/13/2025 CBI has been off and urine without any further hematuria. Was restarted on anticoagulation with heparin GTT on 09/13. If patient is able to take p.o. and he has no further bleeding, transition to oral anticoagulant. follow up results for modified barium swallow to transition to oral anticoagulant patient passed MBS with pureed diet and thickened liquids switch IV heparin drip to Eliquis 10 mg PO BID x 7 days followed by 5 mg BID (3) CHELSEA (acute kidney injury): Code(s): N17.9 - Acute kidney failure, unspecified Status: Resolved Assessment and Plan: Secondary to sepsis hypotension and hypovolemia Renal function improved with IV fluids Creatinine now normalized Monitor urine output electrolytes and creatinine (4) Acute hemorrhagic cystitis: Code(s): N30.01 - Acute cystitis with hematuria Status: Acute Assessment and Plan: Associated with UTI. CBI has been off, will restart heparin 09/13 and assess for any further hematuria. Patient refused for the catheter to be downsized. Continue to appreciate Urology recommendations. (5) COPD (chronic obstructive pulmonary disease): Qualifiers: COPD type: unspecified COPD Qualified Code(s): J44.9 - Chronic obstructive pulmonary disease, unspecified Code(s): J44.9 - Chronic obstructive pulmonary disease, unspecified Status: Chronic Assessment and Plan: Bronchodilators p.r.n., breathing comfortably (6) Hypokalemia: Code(s): E87.6 - Hypokalemia Status: Acute Assessment and Plan: Resolved status post replacement. Continue daily BMP and magnesium checks. Currently on TPN. K 3.1 today, IV kcl 40 meq ordered AM labs (7) Failure to thrive in adult: Code(s): R62.7 - Adult failure to thrive Status: Acute Assessment and Plan: Patient has been NPO since transfer from ICU. Per patient's daughter Odalys, he has been having significant issues with swallowing in the time just prior to admission. Could be due to significant weakness secondary to sepsis/septic shock with or without element of MS the patient has history of. Patient has refused PEG tube. TPN has started. TPN rate increased on 09/12/2025, transferrin was low. Continue to monitor electrolytes, transferrin. Monitor for refeeding syndrome. Continue telemetry. Spoke with speech therapy, will try a barium swallow again and monitor progress. An unusual option is for the patient to be on long-term TPN however that does not come without risk. At any rate, I am told by care coordinators the local nursing facilities do not allow TPN. Therefore, patient will either need to improve and be able to eat, have a PEG tube, or have hospice consulted. Patient did MBS yesterday and started on pureed diet with thickened liquids per nursing patient not eating but a few bites, continue to monitor intake (8) Positive result for methicillin resistant Staphylococcus aureus (MRSA) screening: Code(s): Z22.322 - Carrier or suspected carrier of Methicillin resistant Staphylococcus aureus Status: Acute Assessment and Plan: Contact isolation precautions (9) Pressure ulcers of skin of multiple topographic sites: Code(s): L89.90 - Pressure ulcer of unspecified site, unspecified stage Status: Acute Assessment and Plan: Pressure ulcers on sacrum, left hip, bilateral heels, bilateral ankles. Wound care is on board IV morphine prior to dressing changes due to severe pain. We discussed the risks versus benefits. It has been helping greatly. (10) Hypernatremia: Code(s): E87.0 - Hyperosmolality and hypernatremia Status: Acute Assessment and Plan: Hypernatremia improving with TPN. Continue to monitor. (11) Multiple sclerosis: Code(s): G35 - Multiple sclerosis Status: Chronic Assessment and Plan: Seen by Neurology this admission. Patient's mental status waxes and wanes. Continue to monitor. Subjective Date/time seen: 09/15/25 11:04 Interval history: Patient seen for a follow up visit. Patient lying in bed, in no acute distress. Patient's wbc increased from 14.6 to 17.9 today. Patient was started on a pureed diet with thickened liquids after his MBS yesterday. Patient tolerating diet but not eating much. Patient's potassium 3.1 today, 40 meq IVPB ordered for replacement. Patient continues on TPN. Review of Systems Review of Systems: All systems reviewed & are unremarkable except as noted in HPI and below ROS unobtainable: Yes unobtainable due to medical condition and unobtainable due to mental status Exam Const: General: comfortable and no acute distress Eyes: General: appearance normal, both eyes and all related structures Neck: Other: L IJ in place Resp: Effort & Inspection: normal respiratory effort Auscultation: clear to auscultation bilaterally Cardio: Rate: regular rate Rhythm: regular rhythm GI: GI Palp: Yes Soft to palpation and No Tenderness to palpation present (GI) Urinary Catheter: Urinary Catheter: patent and draining and urine clear Skin: General skin exam: normal color Other: Sacral, left hip, bilateral heels, bilateral ankle pressure ulcers Neuro: Other: Moves all 4 extremities freely Extrem: General: no edema Objective Data Vital Signs Vital Signs: Vital Signs - 24 hr 09/14/25 12:00 09/14/25 14:00 09/14/25 14:00 Temperature 97 F L Pulse Rate 75 106 H Respiratory Rate 17 Blood Pressure 127/75 Pulse Oximetry 90 90 Oxygen Delivery Nasal Cannula Oxygen Flow Rate 3 Fraction of Inspired Oxygen 09/14/25 16:00 09/14/25 20:00 09/14/25 20:00 Temperature Pulse Rate 98 106 H Respiratory Rate Blood Pressure Pulse Oximetry 92 Oxygen Delivery Nasal Cannula Oxygen Flow Rate 3 Fraction of Inspired Oxygen 36 09/14/25 20:17 09/14/25 20:57 09/15/25 00:00 Temperature 98.2 F Pulse Rate 102 H 90 Respiratory Rate 16 Blood Pressure 129/64 Pulse Oximetry 97 94 Oxygen Delivery Nasal Cannula Oxygen Flow Rate 2 Fraction of Inspired Oxygen 09/15/25 04:00 09/15/25 05:42 Temperature 98.5 F Pulse Rate 87 92 Respiratory Rate 16 Blood Pressure 118/60 Pulse Oximetry 92 Oxygen Delivery Oxygen Flow Rate Fraction of Inspired Oxygen Intake/Output Intake/Output: Intake & Output 09/12/25 09/13/25 09/14/25 09/15/25 23:59 23:59 23:59 23:59 Intake Total 1241.7 976.7 2519.5 252.4 Output Total 2570 1100 1000 350 Balance -1328.3 -123.3 1519.5 -97.6 Meds/Results Medications: Active Medications Generic Name Dose Route Start Last Admin Trade Name Freq PRN Reason Stop Dose Admin Acetaminophen 650 mg 09/06/25 18:10 Acetaminophen 650 Mg Suppository RECTAL Q6H PRN Mild Pain (1-3) or Fever Albuterol/Ipratropium 3 ml 09/06/25 18:09 Ipratropium 0.5 Mg/Albuterol Sulfate 2.5 Mg (Base) Ampul.Neb 3 Ml INHALATION Q6HRT PRN copd Alteplase, Recombinant 2 mg 09/14/25 20:43 09/15/25 05:20 Alteplase 2 Mg Vial (Cathflo) IV PUSH 2 mg ONCE PRN Administration Line Occlusion Dextrose 12.5 gm 09/06/25 18:09 Dextrose 50% 25 Gm/50 Ml Syringe IV PUSH PRN PRN Hypoglycemia Protocol Glucagon 1 mg 09/06/25 18:09 Glucagon For Inj 1 Mg Vial IM PRN PRN Hypoglycemia Protocol Glucose 15 gm 09/06/25 18:09 Glucose Oral Gel 15 Gm Of Glucse In 37.5 Gm Tube PO PRN PRN Hypoglycemia Protocol Heparin Sodium (Porcine) 4,500 units 09/13/25 17:34 09/14/25 01:19 Heparin Sodium 5,000 Units/Ml Vial IV PUSH 4,500 units PRN PRN Administration aPTT less than 55 seconds Heparin Sodium (Porcine) 2,500 units 09/13/25 17:34 Heparin Sodium 5,000 Units/Ml Vial IV PUSH PRN PRN aPTT 55 - 70 seconds Dextrose 1,000 mls @ 100 mls/hr 09/06/25 18:09 Dextrose 5% 1,000 Ml IVPB PRN PRN Hypoglycemia Protocol Dextrose 1,000 mls @ 50 mls/hr 09/09/25 13:59 Dextrose 10% IV CONT .Q20H PRN if PN is interrupted Multivitamins 1.25 ml/ 1,002.5 mls @ 60 mls/hr 09/09/25 15:00 09/14/25 18:24 Multivitamins 1.25 ml/ Amino IV CONT 60 mls/hr Acids/Electrolytes/Dextrose .[id number] MICAH Administration Protocol Fat Emulsion Intravenous 250 mls @ 20.833 mls/hr 09/09/25 15:00 09/14/25 16:20 Lipids 20% IVPB 21 mls/hr Q24H MICAH Administration Heparin Sodium/Dextrose 25,000 units in 250 mls @ 12 mls/hr 09/13/25 17:35 09/15/25 05:53 Heparin Sodium/D5w 100 Units/Ml IV CONT 1,200 units/hr .[id number] MICAH 12 mls/hr Protocol Titration 1,200 UNITS/HR Potassium Chloride 40 meq/ 520 mls @ 130 mls/hr 09/15/25 07:41 09/15/25 09:01 Sodium Chloride IVPB 09/15/25 11:40 130 mls/hr ONCE ONE Administration Insulin Human Regular 0 units 09/09/25 18:00 09/15/25 05:52 Insulin Human Regular (*Bkc) 100 Units/Ml SUB-Q Not Given Q6HR [facility] Protocol Morphine Sulfate 1 mg 09/13/25 14:17 09/14/25 16:20 Morphine Sulfate (*Crx) 4 Mg/Ml Inj IV PUSH 1 mg PRN PRN Administration prior to wound dressing changes Sodium Chloride 10 ml 09/07/25 14:00 09/15/25 05:25 Central Line Flush IV PUSH 10 ml Q8HR MICAH Administration Sodium Chloride 20 ml 09/07/25 10:44 09/15/25 05:25 Central Line Flush IV PUSH 20 ml PRN PRN Administration after blood draws Sodium Hypochlorite 1 applic 09/07/25 14:00 09/14/25 17:19 Sod Hypochlorite 1/4 Strength 473 Ml TOPICAL 1 applic DAILY MICAH Administration Radiology Results: ITS Impressions Chest X-Ray 09/06/25 12:50 Impression: No acute cardiopulmonary abnormality. Chest/Abdomen/Pelvis CTA 09/06/25 14:07 IMPRESSION: 1. Filling defect right upper and middle lobe segmental and subsegmental pulmonary artery consistent with pulmonary embolism, small thrombus burden. 2: Interval development of extensive mural thickening and enhancement within the bladder wall, consistent with cystitis. No evidence for bladder fistula. Mondragon catheter present. 3: Extensive subcutaneous edema with small volume of ascites, consistent with anasarca. Dr. Tariq Rivero discussed with Dr. Hector Pritchard MD at 09/06/2025 14:17 FIELD SERVICE SPECIALIST. Renal Ultrasound 09/06/25 21:28 IMPRESSION: There is a Mondragon catheter within the bladder. Left renal cyst measures 2 cm. Venous Doppler Study 09/07/25 14:37 Impression: Negative for DVT. Modified Barium Swallow 09/14/25 12:59 IMPRESSION: Aspiration with thin barium. See also speech therapist notes for complete evaluation. Labs Labs: Laboratory Results - last 24 hr 09/14/25 09/14/25 09/14/25 12:24 13:29 18:24 WBC RBC Hgb Hct MCV MCH MCHC RDW Plt Count MPV Immature Gran % (Auto) Neut % (Auto) Lymph % (Auto) [place] % (Auto) Eos % (Auto) Baso % (Auto) Lymph # (Auto) [place] # (Auto) Eos # (Auto) Baso # (Auto) Abs Immat Gran (auto) Absolute Neuts (auto) Absolute Nucleated RBC Band Neutrophils % Nucleated RBC % Platelet Estimate Hypochromasia Schistocytes APTT 82.0 H Sodium Potassium Chloride Carbon Dioxide Anion Gap BUN Creatinine Estim Creat Clear Calc Estimated GFR Glucose POC Capillary Glucose 119 H 95 Calcium Phosphorus Magnesium Total Bilirubin AST ALT Alkaline Phosphatase Total Protein Albumin Triglycerides 105 09/15/25 09/15/25 00:04 04:58 WBC 17.9 H RBC 3.50 L Hgb 10.2 L Hct 34.5 L MCV 98.6 MCH 29.1 MCHC 29.6 L RDW 17.0 H Plt Count 250 MPV 12.5 H Immature Gran % (Auto) 2.2 H Neut % (Auto) 70.6 Lymph % (Auto) 18.9 [place] % (Auto) 4.7 Eos % (Auto) 3.3 Baso % (Auto) 0.3 Lymph # (Auto) 3.39 H [place] # (Auto) 0.8 H Eos # (Auto) 0.6 H Baso # (Auto) 0.1 Abs Immat Gran (auto) 0.40 H Absolute Neuts (auto) 12.7 H Absolute Nucleated RBC 0.000 Band Neutrophils % Not Reportable Nucleated RBC % 0.0 Platelet Estimate Adequate Hypochromasia 1+ Schistocytes None seen APTT 84.3 H Sodium 145 Potassium 3.1 L Chloride 111 H Carbon Dioxide 33 H Anion Gap 1 L BUN 19 Creatinine 0.45 L Estim Creat Clear Calc 108 Estimated GFR > 60 Glucose 131 H POC Capillary Glucose 153 H Calcium 8.0 L Phosphorus 2.7 Magnesium 2.2 Total Bilirubin 0.3 AST 27 ALT 35 Alkaline Phosphatase 81 Total Protein 5.4 L Albumin 2.5 L Triglycerides Quality VTE Prophylaxis VTE prophylaxis: pharmacologic ordered Hospitalist [facility] Advance Care Plan I have confirmed that the patient's Advanced Care Plan is present, code status is documented, or surrogate decision maker is listed in patient medical record.: Yes Medication Reconciliation I have utilized all available resources to obtain, update and review the patients current medications (includes all prescriptions, OTC, herbals, cannabis, and nutritional supplements).: Yes
[2025-09-15] MEDS: AMINO ACIDS 5%/D15W/E-LYTES/CA 1,000 ML with MULTIVITAMINS-12 INJ VIAL 1 1.25 ML, MULTI... 60 ML IV CONT (11:59)
[2025-09-15] MEDS: HEPARIN SOD/D5W 100 UNITS/ML 25,000 UNITS/250 ML BAG 12 UNITS IV CONT (14:48)
[2025-09-15] MEDS: FAT EMULSIONS IV 20% 250 ML 21 ML IVPB (14:58)
[2025-09-15] MEDS: APIXABAN 5 MG TABLET 10 MG PO (20:30)
[2025-09-16] VITALS (11 sets, daily range): BP systolic 119–139; BP diastolic 63–90; PULSE 87–107; RESP 16–20; TEMP 36–37.3; O2SAT 94–98
[2025-09-16] MEDS: AMINO ACIDS 5%/D15W/E-LYTES/CA 1,000 ML with MULTIVITAMINS-12 INJ VIAL 1 1.25 ML, MULTI... 60 ML IV CONT ×2 (04:46→23:19)
[2025-09-16] MEDS: CENTRAL LINE FLUSH 10 ML IV PUSH ×3 (05:07→23:20)
[2025-09-16] MEDS: CENTRAL LINE FLUSH 20 ML IV PUSH (05:07)
[2025-09-16 05:26] LABS: Anion Gap 0 mmol/L (4-12); Blood Urea Nitrogen 20 mg/dL (9-20); Calcium 7.8 mg/dL (8.4-10.2); Carbon Dioxide 32 mmol/L (22-30); Chloride 109 mmol/L (98-107); Estimated CRCL calculation 106 ml/min; Estimated Glomerular Filt Rate > 60; Glucose 112 mg/dL (65-110); Potassium 3.8 mmol/L (3.4-5.0); Sodium 141 mmol/L (137-145)
--- NOTE | 2025-09-16 07:27 | P.PNIM_ITS ---
Progress Note: A&P Assessment and Plan (1) Septic shock: Code(s): A41.9 - Sepsis, unspecified organism; R65.21 - Severe sepsis with septic shock Status: Acute Assessment and Plan: Sepsis secondary to UTI. Now resolved. Urine culture and blood cultures positive for Proteus mirabilis. Multidrug resistant. Cefepime changed to ceftriaxone, completed 7 days. Repeat blood cultures pending. wbc increased from 14.6 to 17.9 to 18.1 if wbc continues to rise tomorrow will repeat blood cultures, UA and CXR AM labs ordered (2) Pulmonary embolism: Code(s): I26.99 - Other pulmonary embolism without acute cor pulmonale Status: Acute Assessment and Plan: CTA confirmed PE. In light of significant hematuria and drop in hemoglobin is anticoagulation was started but then held. Hematology consulted. IVC filter not advise as patient did not have evidence of DVT. On 09/13/2025 CBI has been off and urine without any further hematuria. Was restarted on anticoagulation with heparin GTT on 09/13. If patient is able to take p.o. and he has no further bleeding, transition to oral anticoagulant. follow up results for modified barium swallow to transition to oral anticoagulant patient passed MBS with pureed diet and thickened liquids switch IV heparin drip to Eliquis 10 mg PO BID x 7 days followed by 5 mg BID (3) CHELSEA (acute kidney injury): Code(s): N17.9 - Acute kidney failure, unspecified Status: Resolved Assessment and Plan: Secondary to sepsis hypotension and hypovolemia Renal function improved with IV fluids Creatinine now normalized Monitor urine output electrolytes and creatinine (4) Acute hemorrhagic cystitis: Code(s): N30.01 - Acute cystitis with hematuria Status: Acute Assessment and Plan: Associated with UTI. CBI has been off, will restart heparin 09/13 and assess for any further hematuria. Patient refused for the catheter to be downsized. Continue to appreciate Urology recommendations. (5) COPD (chronic obstructive pulmonary disease): Qualifiers: COPD type: unspecified COPD Qualified Code(s): J44.9 - Chronic obstructive pulmonary disease, unspecified Code(s): J44.9 - Chronic obstructive pulmonary disease, unspecified Status: Chronic Assessment and Plan: Bronchodilators p.r.n., breathing comfortably (6) Hypokalemia: Code(s): E87.6 - Hypokalemia Status: Acute Assessment and Plan: Resolved status post replacement. Continue daily BMP and magnesium checks. Currently on TPN. K 3.1 09/15, s/p repletion, improved today to 3.8 AM labs (7) Failure to thrive in adult: Code(s): R62.7 - Adult failure to thrive Status: Acute Assessment and Plan: Patient has been NPO since transfer from ICU. Per patient's daughter Odalys, he has been having significant issues with swallowing in the time just prior to admission. Could be due to significant weakness secondary to sepsis/septic shock with or without element of MS the patient has history of. Patient has refused PEG tube. TPN has started. TPN rate increased on 09/12/2025, transferrin was low. Continue to monitor electrolytes, transferrin. Monitor for refeeding syndrome. Continue telemetry. Spoke with speech therapy, will try a barium swallow again and monitor progress. An unusual option is for the patient to be on long-term TPN however that does not come without risk. At any rate, I am told by care coordinators the local nursing facilities do not allow TPN. Therefore, patient will either need to improve and be able to eat, have a PEG tube, or have hospice consulted. Patient did MBS on 09/14 and started on pureed diet with thickened liquids per nursing patient not eating but a few bites, continue to monitor intake (8) Positive result for methicillin resistant Staphylococcus aureus (MRSA) screening: Code(s): Z22.322 - Carrier or suspected carrier of Methicillin resistant Staphylococcus aureus Status: Acute Assessment and Plan: Contact isolation precautions (9) Pressure ulcers of skin of multiple topographic sites: Code(s): L89.90 - Pressure ulcer of unspecified site, unspecified stage Status: Acute Assessment and Plan: Pressure ulcers on sacrum, left hip, bilateral heels, bilateral ankles. Wound care is on board IV morphine prior to dressing changes due to severe pain. We discussed the risks versus benefits. It has been helping greatly. (10) Hypernatremia: Code(s): E87.0 - Hyperosmolality and hypernatremia Status: Acute Assessment and Plan: Hypernatremia improving with TPN. Continue to monitor. (11) Multiple sclerosis: Code(s): G35 - Multiple sclerosis Status: Chronic Assessment and Plan: Seen by Neurology this admission. Patient's mental status waxes and wanes. Continue to monitor. (12) Leukocytosis: Code(s): D72.829 - Elevated white blood cell count, unspecified Status: Acute Assessment and Plan: Patient's wbc count on admission was 36.5 and improved to 14.7 on 09/10 patient s/p 7 days IV cefepime/ceftriaxone for treatment of UTI and bacteremia wbc now rising, today is 18.1 patient is afebrile, VS are stable if wbc continues to elevate in AM will recheck UA, CXR and blood cultures AM labs Subjective Date/time seen: 09/16/25 07:27 Interval history: Patient seen for a follow up visit. Patient lying in bed, in no acute distress. Patient denies acute pain. Patients potassium improved to 3.8 today. Patient's wbc count is higher at 18.1 today, vital signs are stable, patient is afebrile. If wbc count increases again tomorrow I will repeat UA, CXR and blood cultures. On chart review patient appears to have some chronic elevation of his wbc count, however not quite this high. Patient continues on TPN. Patient continues on pureed diet with thickened liquids. Patient still with poor PO intake per nursing. Encourage PO intake. Review of Systems Review of Systems: All systems reviewed & are unremarkable except as noted in HPI and below ROS unobtainable: Yes unobtainable due to medical condition and unobtainable due to mental status Exam Const: General: comfortable and no acute distress Eyes: General: appearance normal, both eyes and all related structures Neck: Other: L IJ in place Resp: Effort & Inspection: normal respiratory effort Auscultation: clear to auscultation bilaterally Cardio: Rate: regular rate Rhythm: regular rhythm GI: GI Palp: Yes Soft to palpation and No Tenderness to palpation present (GI) Urinary Catheter: Urinary Catheter: patent and draining and urine clear Skin: General skin exam: normal color Other: Sacral, left hip, bilateral heels, bilateral ankle pressure ulcers Neuro: Other: Moves all 4 extremities freely Extrem: General: no edema Objective Data Vital Signs Vital Signs: Vital Signs - 24 hr 09/15/25 08:00 09/15/25 08:00 09/15/25 12:00 Temperature Pulse Rate 83 85 Respiratory Rate Blood Pressure Pulse Oximetry 92 Oxygen Delivery Nasal Cannula Oxygen Flow Rate 3 Fraction of Inspired Oxygen 09/15/25 14:00 09/15/25 16:00 09/15/25 20:00 Temperature 98.2 F Pulse Rate 63 111 H 105 H Respiratory Rate 14 Blood Pressure 112/68 Pulse Oximetry 100 Oxygen Delivery Oxygen Flow Rate Fraction of Inspired Oxygen 09/15/25 20:00 09/15/25 20:15 09/16/25 00:00 Temperature 97.2 F L Pulse Rate 97 90 Respiratory Rate 18 Blood Pressure 127/68 Pulse Oximetry 94 97 Oxygen Delivery Nasal Cannula Oxygen Flow Rate 3 Fraction of Inspired Oxygen 36 09/16/25 04:00 09/16/25 04:45 Temperature 96.8 F L Pulse Rate 87 95 Respiratory Rate 20 Blood Pressure 119/63 Pulse Oximetry 95 Oxygen Delivery Oxygen Flow Rate Fraction of Inspired Oxygen Intake/Output Intake/Output: Intake & Output 09/13/25 09/14/25 09/15/25 09/16/25 23:59 23:59 23:59 23:59 Intake Total 976.7 2519.5 1602.5 1352.5 Output Total 1100 1000 650 400 Balance -123.3 1519.5 952.5 952.5 Meds/Results Medications: Active Medications Generic Name Dose Route Start Last Admin Trade Name Freq PRN Reason Stop Dose Admin Acetaminophen 650 mg 09/06/25 18:10 Acetaminophen 650 Mg Suppository RECTAL Q6H PRN Mild Pain (1-3) or Fever Albuterol/Ipratropium 3 ml 09/06/25 18:09 Ipratropium 0.5 Mg/Albuterol Sulfate 2.5 Mg (Base) Ampul.Neb 3 Ml INHALATION Q6HRT PRN copd Alteplase, Recombinant 2 mg 09/14/25 20:43 09/15/25 05:20 Alteplase 2 Mg Vial (Cathflo) IV PUSH 2 mg ONCE PRN Administration Line Occlusion Apixaban 10 mg 09/15/25 21:00 09/15/25 20:30 Apixaban 5 Mg Tablet PO 09/22/25 20:59 10 mg Q12HR MICAH Administration Apixaban 2.5 mg 09/22/25 21:00 Apixaban 2.5 Mg Tablet PO Q12HR MICAH Dextrose 12.5 gm 09/06/25 18:09 Dextrose 50% 25 Gm/50 Ml Syringe IV PUSH PRN PRN Hypoglycemia Protocol Glucagon 1 mg 09/06/25 18:09 Glucagon For Inj 1 Mg Vial IM PRN PRN Hypoglycemia Protocol Glucose 15 gm 09/06/25 18:09 Glucose Oral Gel 15 Gm Of Glucse In 37.5 Gm Tube PO PRN PRN Hypoglycemia Protocol Dextrose 1,000 mls @ 100 mls/hr 09/06/25 18:09 Dextrose 5% 1,000 Ml IVPB PRN PRN Hypoglycemia Protocol Dextrose 1,000 mls @ 50 mls/hr 09/09/25 13:59 Dextrose 10% IV CONT .Q20H PRN if PN is interrupted Multivitamins 1.25 ml/ 1,002.5 mls @ 60 mls/hr 09/09/25 15:00 09/16/25 04:46 Multivitamins 1.25 ml/ Amino IV CONT 60 mls/hr Acids/Electrolytes/Dextrose .[id number] MICAH Administration Protocol Fat Emulsion Intravenous 250 mls @ 20.833 mls/hr 09/09/25 15:00 09/16/25 02:53 Lipids 20% IVPB Infused Q24H MICAH Infusion Insulin Human Regular 0 units 09/09/25 18:00 09/16/25 00:50 Insulin Human Regular (*Bkc) 100 Units/Ml SUB-Q Not Given Q6HR [facility] Protocol Morphine Sulfate 1 mg 09/13/25 14:17 09/14/25 16:20 Morphine Sulfate (*Crx) 4 Mg/Ml Inj IV PUSH 1 mg PRN PRN Administration prior to wound dressing changes Sodium Chloride 10 ml 09/07/25 14:00 09/16/25 05:07 Central Line Flush IV PUSH 10 ml Q8HR MICAH Administration Sodium Chloride 20 ml 09/07/25 10:44 09/16/25 05:07 Central Line Flush IV PUSH 20 ml PRN PRN Administration after blood draws Sodium Hypochlorite 1 applic 09/07/25 14:00 09/15/25 19:43 Sod Hypochlorite 1/4 Strength 473 Ml TOPICAL Not Given DAILY [facility] Radiology Results: ITS Impressions Chest X-Ray 09/06/25 12:50 Impression: No acute cardiopulmonary abnormality. Chest/Abdomen/Pelvis CTA 09/06/25 14:07 IMPRESSION: 1. Filling defect right upper and middle lobe segmental and subsegmental pulmonary artery consistent with pulmonary embolism, small thrombus burden. 2: Interval development of extensive mural thickening and enhancement within the bladder wall, consistent with cystitis. No evidence for bladder fistula. Mondragon catheter present. 3: Extensive subcutaneous edema with small volume of ascites, consistent with anasarca. Dr. Tariq Rivero discussed with Dr. Hector Pritchard MD at 09/06/2025 14:17 [employer]SEM[employer]. Renal Ultrasound 09/06/25 21:28 IMPRESSION: There is a Mondragon catheter within the bladder. Left renal cyst measures 2 cm. Venous Doppler Study 09/07/25 14:37 Impression: Negative for DVT. Modified Barium Swallow 09/14/25 12:59 IMPRESSION: Aspiration with thin barium. See also speech therapist notes for complete evaluation. Labs Labs: Laboratory Results - last 24 hr 09/15/25 09/16/25 09/16/25 12:11 00:36 04:57 Sodium 141 Potassium 3.8 Chloride 109 H Carbon Dioxide 32 H Anion Gap 0 L BUN 20 Creatinine 0.46 L Estim Creat Clear Calc 106 Estimated GFR > 60 Glucose 112 H POC Capillary Glucose 116 H 149 H Calcium 7.8 L Phosphorus 2.7 Quality VTE Prophylaxis VTE prophylaxis: pharmacologic ordered Hospitalist MIPS Advance Care Plan I have confirmed that the patient's Advanced Care Plan is present, code status is documented, or surrogate decision maker is listed in patient medical record.: Yes Medication Reconciliation I have utilized all available resources to obtain, update and review the patients current medications (includes all prescriptions, OTC, herbals, cannabis, and nutritional supplements).: Yes
[2025-09-16 07:43] LABS: Hematocrit 32.8 % (42.0-52.0); Hemoglobin 9.6 g/dL (14.0-18.0); Immature Granulocyte Percent A 1.9 % (0-0.5); Immature Platelet Fraction Pct 12.9 % (0.9-11.2); Lymphocytes Absolute Auto 2.62 K/mm3 (0.9-3.2); Mean Corpuscular HGB Conc 29.3 g/dl (32-36); Mean Corpuscular Hemoglobin 28.7 pg (26-34); Mean Corpuscular Volume 98.2 fl (80-100); Nucleated Red Blood Cells Absolute Auto 0.000 K/mm3 (0.0-0.012); Nucleated Red Blood Cells Perc 0.0 % (0.0-0.2); Platelet Count Result 270 k/mm3 (150-375); Red Blood Count 3.34 M/mm3 (4.6-6.20); White Blood Count 18.1 K/mm3 (4.5-10.0)
[2025-09-16 08:07] LABS: Anisocytosis 1+; Schistocytes None Seen
[2025-09-16 08:09] LABS: Hypochromasia 1+
[2025-09-16] MEDS: APIXABAN 5 MG TABLET 10 MG PO ×2 (09:09→20:17)
--- NOTE | 2025-09-16 12:42 | PCNFU ---
Nutrition Follow-Up Complete: Severe Protein Calorie Malnutrition as related to inadequate protein energy intake with increased protein-energy needs in setting of chronic disease as evidenced by minimal oral intake for > 1-2 months; significant weight loss of 27 ibs (17%) in 1 month; severe subcutaneous fat loss (orbital fat pads) and severe muscle wasting (temporalis, clavicle). Goal: Meet estimated nutritional needs Pt current nutrition is Pureed level 4, level 2 thickened liquids, Ensure TID, TPN Clinimix E 03/17 running at 60ml/hr to provide 1522kcals, 72g protein, 1690ml free water. Nutrition recommendation: Add LAKESHA BID for wound healing Last recorded weight is 58.1 kg. Bowel Motility: No BM recorded at this time Labs Reviewed: Hgb:9.6, HCT:32.8, Cr:0.46, Glu:112 Meds Noted:insulin, eliquis Skin: multiple pressure areas Additional Notes: Pt continues on TPN at 60ml/hr. Pureed diet with level 2 liquids added but intake is poor overall. Nursing states pt does drink the Ensure shakes, will make sure they send them TID. Will also add LAKESHA BID for wound healing. Will monitor weight, labs, skin, diet orders, meds every Friday and Friday.
[2025-09-16] MEDS: FAT EMULSIONS IV 20% 250 ML 20.83 ML IVPB (15:02)
[2025-09-16 17:19] LABS: Triglycerides 107 mg/dL (<150)
[2025-09-16] MEDS: SOD HYPOCHLORITE 1/4 STRENGTH 473 ML 1 APPLIC TOPICAL (18:37)
--- NOTE | 2025-09-16 21:14 | PC.NURSE ---
06 Insulin was not given due to no dose required. Blood glucose was at 112.
[2025-09-17] VITALS (10 sets, daily range): BP systolic 119–136; BP diastolic 67–92; PULSE 77–99; RESP 16–20; TEMP 36.2–36.6; O2SAT 90–100
[2025-09-17] MEDS: CENTRAL LINE FLUSH 20 ML IV PUSH (05:28)
[2025-09-17] MEDS: CENTRAL LINE FLUSH 10 ML IV PUSH ×3 (05:28→20:51)
[2025-09-17 06:02] LABS: Hematocrit 32.0 % (42.0-52.0); Hemoglobin 9.5 g/dL (14.0-18.0); Immature Granulocyte Percent A 1.5 % (0-0.5); Lymphocytes Absolute Auto 2.46 K/mm3 (0.9-3.2); Mean Corpuscular HGB Conc 29.7 g/dl (32-36); Mean Corpuscular Hemoglobin 28.5 pg (26-34); Mean Corpuscular Volume 96.1 fl (80-100); Nucleated Red Blood Cells Absolute Auto 0.000 K/mm3 (0.0-0.012); Nucleated Red Blood Cells Perc 0.0 % (0.0-0.2); Platelet Count Result 275 k/mm3 (150-375); Red Blood Count 3.33 M/mm3 (4.6-6.20); White Blood Count 17.8 K/mm3 (4.5-10.0)
[2025-09-17 06:29] LABS: Anion Gap 1 mmol/L (4-12); Blood Urea Nitrogen 19 mg/dL (9-20); Calcium 7.9 mg/dL (8.4-10.2); Carbon Dioxide 31 mmol/L (22-30); Chloride 107 mmol/L (98-107); Estimated CRCL calculation 152 ml/min; Estimated Glomerular Filt Rate > 60; Glucose 114 mg/dL (65-110); Potassium 3.7 mmol/L (3.4-5.0); Sodium 139 mmol/L (137-145)
[2025-09-17 06:35] LABS: Hypochromasia 1+
[2025-09-17 06:36] LABS: Anisocytosis 1+; Schistocytes None Seen
[2025-09-17] MEDS: APIXABAN 5 MG TABLET 10 MG PO ×2 (09:04→20:50)
[2025-09-17] MEDS: SOD HYPOCHLORITE 1/4 STRENGTH 473 ML 1 APPLIC TOPICAL (09:04)
--- NOTE | 2025-09-17 09:06 | WPDONCPN ---
Progress Note: A&P Assessment and Plan (1) Septic shock: Code(s): A41.9 - Sepsis, unspecified organism; R65.21 - Severe sepsis with septic shock Status: Acute Assessment and Plan: Sepsis secondary to UTI. Now resolved. (2) Pulmonary embolism: Code(s): I26.99 - Other pulmonary embolism without acute cor pulmonale Status: Acute Assessment and Plan: CTA confirmed PE. In light of significant hematuria and drop in hemoglobin is anticoagulation was started but then held. No IVC filter as no evidence of DVT. Heparin started 09/13/25. Eliquis begun 09/15/25. Plan: Eliquis 10 mg PO BID x 7 days followed by 5 mg BID (3) CHELSEA (acute kidney injury): Code(s): N17.9 - Acute kidney failure, unspecified Status: Resolved Assessment and Plan: ne (4) Acute hemorrhagic cystitis: Code(s): N30.01 - Acute cystitis with hematuria Status: Acute Assessment and Plan: Associated with UTI. (5) COPD (chronic obstructive pulmonary disease): Qualifiers: COPD type: unspecified COPD Qualified Code(s): J44.9 - Chronic obstructive pulmonary disease, unspecified Code(s): J44.9 - Chronic obstructive pulmonary disease, unspecified Status: Chronic (6) Hypokalemia: Code(s): E87.6 - Hypokalemia Status: Acute Assessment and Plan: Resolved status post replacement. (7) Failure to thrive in adult: Code(s): R62.7 - Adult failure to thrive Status: Acute (8) Positive result for methicillin resistant Staphylococcus aureus (MRSA) screening: Code(s): Z22.322 - Carrier or suspected carrier of Methicillin resistant Staphylococcus aureus Status: Acute (9) Pressure ulcers of skin of multiple topographic sites: Code(s): L89.90 - Pressure ulcer of unspecified site, unspecified stage Status: Acute Assessment and Plan: y. (10) Hypernatremia: Code(s): E87.0 - Hyperosmolality and hypernatremia Status: Acute (11) Multiple sclerosis: Code(s): G35 - Multiple sclerosis Status: Chronic (12) Leukocytosis: Code(s): D72.829 - Elevated white blood cell count, unspecified Status: Acute Assessment and Plan: Patient's wbc count on admission was 36.5 and improved to 14.7 on 09/10 with antibiotics. Now elevated at 17.8 but immature forms decreasing. Observe. Plan As. above. Subjective Date/time seen: 09/17/25 09:06 Interval history: Patient is a poor historian. Appears to be comfortable today. IMPRESSION/PLAN: Pulmonary embolism with small PE burden. - Anticoagulation was initially on hold due to hematuria. Heparin iv switched to Eliquis Eliquis 10 mg bid was begun 09/15/25; plan for 7 days of therapy and then decrease to 5 mg bid Hematuria - etiology? - UA still 3+ blood today Normocytic anemia - Iron studies, Vitamin B12 and folic acid still pending. Will reorder. Will need to observe as patient is now on a blood thinner. Hgb dropped from 10.2 to 9.5 today. Labs: (09/15/25): WBC 17.9, Hgb 10.2, Hct 34.5, Plt 250 (09/17/25): WBC 17.8, Hgb 9.5, Hct 32.0, Plt 275. UA 3+ blood Immature neutrophils appear to be decreasing CODE STATUS - DNR Aspiration -Barium swallow (09/14/25): Aspiration with thin barium. - Currently receiving thickened liquids Exam Const: Other: Frail male. Resting comfortably Eyes: Other: Pale conjunctivae Resp: Other: Few bilateral scattered rhonchi Cardio: Other: RRR Skin: Other: Pressure ulcers Objective Data Vital Signs Vital Signs: Vital Signs - 24 hr 09/16/25 12:00 09/16/25 14:00 09/16/25 16:00 Temperature 37.3 C Pulse Rate 96 99 100 Respiratory Rate 17 Blood Pressure 123/80 Pulse Oximetry 98 Oxygen Delivery Oxygen Flow Rate 09/16/25 20:00 09/16/25 20:00 09/16/25 21:22 Temperature 36.6 C Pulse Rate 101 H 99 Respiratory Rate 16 Blood Pressure 139/90 Pulse Oximetry 94 94 Oxygen Delivery Nasal Cannula Oxygen Flow Rate 3 09/16/25 22:00 09/17/25 00:00 09/17/25 04:00 Temperature 36.6 C Pulse Rate 99 99 92 Respiratory Rate 16 Blood Pressure 139/90 Pulse Oximetry 94 Oxygen Delivery Oxygen Flow Rate 09/17/25 06:00 Temperature 36.2 C L Pulse Rate 94 Respiratory Rate 16 Blood Pressure 136/92 H Pulse Oximetry 95 Oxygen Delivery Oxygen Flow Rate Intake/Output Intake/Output: Intake & Output 09/14/25 09/15/25 09/16/25 09/17/25 23:59 23:59 23:59 23:59 Intake Total 2519.5 1602.5 2555.0 250 Output Total 7297 923 1545 800 Balance 1519.5 952.5 1405.0 -550 Meds/Results Medications: Active Medications Generic Name Dose Route Start Last Admin Trade Name Freq PRN Reason Stop Dose Admin Acetaminophen 650 mg 09/06/25 18:10 Acetaminophen 650 Mg Suppository RECTAL Q6H PRN Mild Pain (1-3) or Fever Albuterol/Ipratropium 3 ml 09/06/25 18:09 Ipratropium 0.5 Mg/Albuterol Sulfate 2.5 Mg (Base) Ampul.Neb 3 Ml INHALATION Q6HRT PRN copd Alteplase, Recombinant 2 mg 09/14/25 20:43 09/15/25 05:20 Alteplase 2 Mg Vial (Cathflo) IV PUSH 2 mg ONCE PRN Administration Line Occlusion Apixaban 10 mg 09/15/25 21:00 09/17/25 09:04 Apixaban 5 Mg Tablet PO 09/22/25 20:59 10 mg Q12HR MICAH Administration Apixaban 5 mg 09/22/25 21:00 Apixaban 5 Mg Tablet PO Q12HR MICAH Dextrose 12.5 gm 09/06/25 18:09 Dextrose 50% 25 Gm/50 Ml Syringe IV PUSH PRN PRN Hypoglycemia Protocol Glucagon 1 mg 09/06/25 18:09 Glucagon For Inj 1 Mg Vial IM PRN PRN Hypoglycemia Protocol Glucose 15 gm 09/06/25 18:09 Glucose Oral Gel 15 Gm Of Glucse In 37.5 Gm Tube PO PRN PRN Hypoglycemia Protocol Dextrose 1,000 mls @ 100 mls/hr 09/06/25 18:09 Dextrose 5% 1,000 Ml IVPB PRN PRN Hypoglycemia Protocol Dextrose 1,000 mls @ 50 mls/hr 09/09/25 13:59 Dextrose 10% IV CONT .Q20H PRN if PN is interrupted Multivitamins 1.25 ml/ 1,002.5 mls @ 60 mls/hr 09/09/25 15:00 09/16/25 23:19 Multivitamins 1.25 ml/ Amino IV CONT 60 mls/hr Acids/Electrolytes/Dextrose .[id number] MICAH Administration Protocol Fat Emulsion Intravenous 250 mls @ 20.833 mls/hr 09/09/25 15:00 09/17/25 03:03 Lipids 20% IVPB Infused Q24H MICAH Infusion Insulin Human Regular 0 units 09/09/25 18:00 09/17/25 06:30 Insulin Human Regular (*Bkc) 100 Units/Ml SUB-Q Not Given Q6HR [facility] Protocol Morphine Sulfate 1 mg 09/13/25 14:17 09/14/25 16:20 Morphine Sulfate (*Crx) 4 Mg/Ml Inj IV PUSH 1 mg PRN PRN Administration prior to wound dressing changes Sodium Chloride 10 ml 09/07/25 14:00 09/17/25 05:28 Central Line Flush IV PUSH 10 ml Q8HR MICAH Administration Sodium Chloride 20 ml 09/07/25 10:44 09/17/25 05:28 Central Line Flush IV PUSH 20 ml PRN PRN Administration after blood draws Sodium Hypochlorite 1 applic 09/07/25 14:00 09/17/25 09:04 Sod Hypochlorite 1/4 Strength 473 Ml TOPICAL 1 applic DAILY MICAH Administration Radiology Results: ITS Impressions Chest X-Ray 09/06/25 12:50 Impression: No acute cardiopulmonary abnormality. Chest/Abdomen/Pelvis CTA 09/06/25 14:07 IMPRESSION: 1. Filling defect right upper and middle lobe segmental and subsegmental pulmonary artery consistent with pulmonary embolism, small thrombus burden. 2: Interval development of extensive mural thickening and enhancement within the bladder wall, consistent with cystitis. No evidence for bladder fistula. Mondragon catheter present. 3: Extensive subcutaneous edema with small volume of ascites, consistent with anasarca. Dr. Tariq Rivero discussed with Dr. Hector Pritchard MD at 09/06/2025 14:17 [employer] DIRECTOR. Renal Ultrasound 09/06/25 21:28 IMPRESSION: There is a Mondragon catheter within the bladder. Left renal cyst measures 2 cm. Venous Doppler Study 09/07/25 14:37 Impression: Negative for DVT. Modified Barium Swallow 09/14/25 12:59 IMPRESSION: Aspiration with thin barium. See also speech therapist notes for complete evaluation. Labs Labs: Laboratory Results - last 24 hr 09/16/25 09/16/25 09/16/25 11:35 16:53 18:04 WBC RBC Hgb Hct MCV MCH MCHC RDW Plt Count MPV Immature Gran % (Auto) Neut % (Auto) Lymph % (Auto) [place] % (Auto) Eos % (Auto) Baso % (Auto) Lymph # (Auto) [place] # (Auto) Eos # (Auto) Baso # (Auto) Abs Immat Gran (auto) Absolute Neuts (auto) Absolute Nucleated RBC Band Neutrophils % Nucleated RBC % Platelet Estimate Hypochromasia Anisocytosis Schistocytes Sodium Potassium Chloride Carbon Dioxide Anion Gap BUN Creatinine Estim Creat Clear Calc Estimated GFR Glucose POC Capillary Glucose 129 H 116 H Calcium Triglycerides 107 09/17/25 09/17/25 00:02 05:22 WBC 17.8 H RBC 3.33 L Hgb 9.5 L Hct 32.0 L MCV 96.1 MCH 28.5 MCHC 29.7 L RDW 17.2 H Plt Count 275 MPV 12.3 H Immature Gran % (Auto) 1.5 H Neut % (Auto) 75.8 H Lymph % (Auto) 13.8 L [place] % (Auto) 6.5 Eos % (Auto) 2.1 Baso % (Auto) 0.3 Lymph # (Auto) 2.46 [place] # (Auto) 1.2 H Eos # (Auto) 0.4 H Baso # (Auto) 0.1 Abs Immat Gran (auto) 0.27 H Absolute Neuts (auto) 13.5 H Absolute Nucleated RBC 0.000 Band Neutrophils % Not Reportable Nucleated RBC % 0.0 Platelet Estimate Adequate Hypochromasia 1+ Anisocytosis 1+ Schistocytes None seen Sodium 139 Potassium 3.7 Chloride 107 Carbon Dioxide 31 H Anion Gap 1 L BUN 19 Creatinine 0.41 L Estim Creat Clear Calc 152 Estimated GFR > 60 Glucose 114 H POC Capillary Glucose 145 H Calcium 7.9 L Triglycerides
[2025-09-17 09:50] LABS: Iron 21 ug/dL (49-181)
[2025-09-17 09:59] LABS: Percent Iron Saturation 12 % (20-50)
[2025-09-17 10:38] LABS: Vitamin B12 307.0 pg/mL (239-931)
--- NOTE | 2025-09-17 13:45 | PM.IMPN ---
Progress Note: A&P Assessment and Plan (1) Septic shock: Code(s): A41.9 - Sepsis, unspecified organism; R65.21 - Severe sepsis with septic shock Status: Acute Assessment and Plan: Sepsis secondary to UTI. Now resolved. Urine culture and blood cultures positive for Proteus mirabilis. Multidrug resistant. Cefepime changed to ceftriaxone, completed 7 days. Repeat blood cultures pending. wbc increased from 14.6 to 17.9 to 18.1 to 17.8 if wbc continues to rise tomorrow will repeat blood cultures, UA and CXR AM labs ordered (2) Pulmonary embolism: Code(s): I26.99 - Other pulmonary embolism without acute cor pulmonale Status: Acute Assessment and Plan: CTA confirmed PE. In light of significant hematuria and drop in hemoglobin is anticoagulation was started but then held. Hematology consulted. IVC filter not advise as patient did not have evidence of DVT. On 09/13/2025 CBI has been off and urine without any further hematuria. Was restarted on anticoagulation with heparin GTT on 09/13. If patient is able to take p.o. and he has no further bleeding, transition to oral anticoagulant. follow up results for modified barium swallow to transition to oral anticoagulant patient passed MBS with pureed diet and thickened liquids s/p IV heparin drip Continue Eliquis 10 mg PO BID x 7 days followed by 5 mg BID monitor for signs or symptoms of bleeding (3) CHELSAE (acute kidney injury): Code(s): N17.9 - Acute kidney failure, unspecified Status: Resolved Assessment and Plan: Secondary to sepsis hypotension and hypovolemia Renal function improved with IV fluids Creatinine now normalized Monitor urine output electrolytes and creatinine (4) Acute hemorrhagic cystitis: Code(s): N30.01 - Acute cystitis with hematuria Status: Acute Assessment and Plan: Associated with UTI. CBI has been off, will restart heparin 09/13 and assess for any further hematuria. Patient refused for the catheter to be downsized. Continue to appreciate Urology recommendations. (5) COPD (chronic obstructive pulmonary disease): Qualifiers: COPD type: unspecified COPD Qualified Code(s): J44.9 - Chronic obstructive pulmonary disease, unspecified Code(s): J44.9 - Chronic obstructive pulmonary disease, unspecified Status: Chronic Assessment and Plan: Bronchodilators p.r.n., breathing comfortably (6) Hypokalemia: Code(s): E87.6 - Hypokalemia Status: Acute Assessment and Plan: Resolved status post replacement. Continue daily BMP and magnesium checks. Currently on TPN. K 3.1 09/15, s/p repletion, improved today to 3.8 AM labs (7) Failure to thrive in adult: Code(s): R62.7 - Adult failure to thrive Status: Acute Assessment and Plan: Patient has been NPO since transfer from ICU. Per patient's daughter Odalys, he has been having significant issues with swallowing in the time just prior to admission. Could be due to significant weakness secondary to sepsis/septic shock with or without element of MS the patient has history of. Patient has refused PEG tube. TPN has started. TPN rate increased on 09/12/2025, transferrin was low. Continue to monitor electrolytes, transferrin. Monitor for refeeding syndrome. Continue telemetry. Spoke with speech therapy, will try a barium swallow again and monitor progress. An unusual option is for the patient to be on long-term TPN however that does not come without risk. At any rate, I am told by care coordinators the local nursing facilities do not allow TPN. Therefore, patient will either need to improve and be able to eat, have a PEG tube, or have hospice consulted. Patient did MBS on 09/14 and started on pureed diet with thickened liquids per nursing patient not eating but a few bites, continue to monitor intake Patient still with poor PO intake, will discuss PEG tube placement vs hospice consult with POA (8) Positive result for methicillin resistant Staphylococcus aureus (MRSA) screening: Code(s): Z22.322 - Carrier or suspected carrier of Methicillin resistant Staphylococcus aureus Status: Acute Assessment and Plan: Contact isolation precautions (9) Pressure ulcers of skin of multiple topographic sites: Code(s): L89.90 - Pressure ulcer of unspecified site, unspecified stage Status: Acute Assessment and Plan: Pressure ulcers on sacrum, left hip, bilateral heels, bilateral ankles. Wound care is on board IV morphine prior to dressing changes due to severe pain. We discussed the risks versus benefits. It has been helping greatly. we will attempt to change this to something oral as patient will not be able to get IV medications at the [facility] (10) Hypernatremia: Code(s): E87.0 - Hyperosmolality and hypernatremia Status: Acute Assessment and Plan: Hypernatremia improving with TPN. Continue to monitor. (11) Multiple sclerosis: Code(s): G35 - Multiple sclerosis Status: Chronic Assessment and Plan: Seen by Neurology this admission. Patient's mental status waxes and wanes. Continue to monitor. (12) Leukocytosis: Code(s): D72.829 - Elevated white blood cell count, unspecified Status: Acute Assessment and Plan: Patient's wbc count on admission was 36.5 and improved to 14.7 on 09/10 patient s/p 7 days IV cefepime/ceftriaxone for treatment of UTI and bacteremia wbc was rising, 18.1 yesterday, now 17.8 patient is afebrile, VS are stable if wbc continues to elevate in AM will recheck UA, CXR and blood cultures AM labs Subjective Date/time seen: 09/17/25 13:45 Interval history: Patient seen for a follow up visit. Patient lying in bed, in no acute distress. Patient denies acute pain. Patient continues on Eliquis, no signs of bleeding currently. Patient with poor PO intake on review of chart and discussion with nurse. Plan for discussion with patient's POA regarding PEG tube for nutrition vs comfort measures. Patient's wbc count 17.8 today, slightly lower, continue to monitor for signs or symptoms of infection. Review of Systems Review of Systems: All systems reviewed & are unremarkable except as noted in HPI and below ROS unobtainable: Yes unobtainable due to medical condition and unobtainable due to mental status Exam Const: General: comfortable and no acute distress Eyes: General: appearance normal, both eyes and all related structures Neck: Other: L IJ in place Resp: Effort & Inspection: normal respiratory effort Auscultation: clear to auscultation bilaterally Cardio: Rate: regular rate Rhythm: regular rhythm GI: GI Palp: Yes Soft to palpation and No Tenderness to palpation present (GI) Urinary Catheter: Urinary Catheter: patent and draining and urine clear Skin: General skin exam: normal color Other: Sacral, left hip, bilateral heels, bilateral ankle pressure ulcers Neuro: Other: Moves all 4 extremities freely Extrem: General: no edema Objective Data Vital Signs Vital Signs: Vital Signs - 24 hr 09/16/25 14:00 09/16/25 16:00 09/16/25 20:00 Temperature 99.2 F Pulse Rate 99 100 Respiratory Rate 17 Blood Pressure 123/80 Pulse Oximetry 98 94 Oxygen Delivery Nasal Cannula Oxygen Flow Rate 3 09/16/25 20:00 09/16/25 21:22 09/16/25 22:00 Temperature 97.8 F 97.8 F Pulse Rate 101 H 99 99 Respiratory Rate 16 16 Blood Pressure 139/90 139/90 Pulse Oximetry 94 94 Oxygen Delivery Oxygen Flow Rate 09/17/25 00:00 09/17/25 04:00 09/17/25 06:00 Temperature 97.1 F L Pulse Rate 99 92 94 Respiratory Rate 16 Blood Pressure 136/92 H Pulse Oximetry 95 Oxygen Delivery Oxygen Flow Rate 09/17/25 08:00 09/17/25 08:00 Temperature Pulse Rate 94 Respiratory Rate Blood Pressure Pulse Oximetry 95 Oxygen Delivery Nasal Cannula Oxygen Flow Rate 2 Intake/Output Intake/Output: Intake & Output 09/14/25 09/15/25 09/16/25 09/17/25 23:59 23:59 23:59 23:59 Intake Total 2519.5 1602.5 2555.0 470 Output Total 0447 034 2228 800 Balance 1519.5 952.5 1405.0 -330 Meds/Results Medications: Active Medications Generic Name Dose Route Start Last Admin Trade Name Freq PRN Reason Stop Dose Admin Acetaminophen 650 mg 09/06/25 18:10 Acetaminophen 650 Mg Suppository RECTAL Q6H PRN Mild Pain (1-3) or Fever Albuterol/Ipratropium 3 ml 09/06/25 18:09 Ipratropium 0.5 Mg/Albuterol Sulfate 2.5 Mg (Base) Ampul.Neb 3 Ml INHALATION Q6HRT PRN copd Alteplase, Recombinant 2 mg 09/14/25 20:43 09/15/25 05:20 Alteplase 2 Mg Vial (Cathflo) IV PUSH 2 mg ONCE PRN Administration Line Occlusion Apixaban 10 mg 09/15/25 21:00 09/17/25 09:04 Apixaban 5 Mg Tablet PO 09/22/25 20:59 10 mg Q12HR MICAH Administration Apixaban 5 mg 09/22/25 21:00 Apixaban 5 Mg Tablet PO Q12HR MICAH Dextrose 12.5 gm 09/06/25 18:09 Dextrose 50% 25 Gm/50 Ml Syringe IV PUSH PRN PRN Hypoglycemia Protocol Glucagon 1 mg 09/06/25 18:09 Glucagon For Inj 1 Mg Vial IM PRN PRN Hypoglycemia Protocol Glucose 15 gm 09/06/25 18:09 Glucose Oral Gel 15 Gm Of Glucse In 37.5 Gm Tube PO PRN PRN Hypoglycemia Protocol Dextrose 1,000 mls @ 100 mls/hr 09/06/25 18:09 Dextrose 5% 1,000 Ml IVPB PRN PRN Hypoglycemia Protocol Dextrose 1,000 mls @ 50 mls/hr 09/09/25 13:59 Dextrose 10% IV CONT .Q20H PRN if PN is interrupted Multivitamins 1.25 ml/ 1,002.5 mls @ 60 mls/hr 09/09/25 15:00 09/16/25 23:19 Multivitamins 1.25 ml/ Amino IV CONT 60 mls/hr Acids/Electrolytes/Dextrose .[id number] MICAH Administration Protocol Fat Emulsion Intravenous 250 mls @ 20.833 mls/hr 09/09/25 15:00 09/17/25 03:03 Lipids 20% IVPB Infused Q24H MICAH Infusion Insulin Human Regular 0 units 09/09/25 18:00 09/17/25 11:49 Insulin Human Regular (*Bkc) 100 Units/Ml SUB-Q Not Given Q6HR MICAH Protocol Morphine Sulfate 1 mg 09/13/25 14:17 09/14/25 16:20 Morphine Sulfate (*Crx) 4 Mg/Ml Inj IV PUSH 1 mg PRN PRN Administration prior to wound dressing changes Sodium Chloride 10 ml 09/07/25 14:00 09/17/25 05:28 Central Line Flush IV PUSH 10 ml Q8HR MICAH Administration Sodium Chloride 20 ml 09/07/25 10:44 09/17/25 05:28 Central Line Flush IV PUSH 20 ml PRN PRN Administration after blood draws Sodium Hypochlorite 1 applic 09/07/25 14:00 09/17/25 09:04 Sod Hypochlorite 1/4 Strength 473 Ml TOPICAL 1 applic DAILY MICAH Administration Radiology Results: ITS Impressions Chest X-Ray 09/06/25 12:50 Impression: No acute cardiopulmonary abnormality. Chest/Abdomen/Pelvis CTA 09/06/25 14:07 IMPRESSION: 1. Filling defect right upper and middle lobe segmental and subsegmental pulmonary artery consistent with pulmonary embolism, small thrombus burden. 2: Interval development of extensive mural thickening and enhancement within the bladder wall, consistent with cystitis. No evidence for bladder fistula. Mondragon catheter present. 3: Extensive subcutaneous edema with small volume of ascites, consistent with anasarca. Dr. Tariq Rivero discussed with Dr. Hector Pritchard MD at 09/06/2025 14:17 [employer]. Renal Ultrasound 09/06/25 21:28 IMPRESSION: There is a Mondragon catheter within the bladder. Left renal cyst measures 2 cm. Venous Doppler Study 09/07/25 14:37 Impression: Negative for DVT. Modified Barium Swallow 09/14/25 12:59 IMPRESSION: Aspiration with thin barium. See also speech therapist notes for complete evaluation. Labs Labs: Laboratory Results - last 24 hr 09/16/25 09/16/25 09/17/25 16:53 18:04 00:02 WBC RBC Hgb Hct MCV MCH MCHC RDW Plt Count MPV Immature Gran % (Auto) Neut % (Auto) Lymph % (Auto) [place] % (Auto) Eos % (Auto) Baso % (Auto) Lymph # (Auto) [place] # (Auto) Eos # (Auto) Baso # (Auto) Abs Immat Gran (auto) Absolute Neuts (auto) Absolute Nucleated RBC Band Neutrophils % Nucleated RBC % Platelet Estimate Hypochromasia Anisocytosis Schistocytes Sodium Potassium Chloride Carbon Dioxide Anion Gap BUN Creatinine Estim Creat Clear Calc Estimated GFR Glucose POC Capillary Glucose 116 H 145 H Calcium Iron TIBC % Saturation Triglycerides 107 Vitamin B12 Folate 09/17/25 09/17/25 05:22 11:40 WBC 17.8 H RBC 3.33 L Hgb 9.5 L Hct 32.0 L MCV 96.1 MCH 28.5 MCHC 29.7 L RDW 17.2 H Plt Count 275 MPV 12.3 H Immature Gran % (Auto) 1.5 H Neut % (Auto) 75.8 H Lymph % (Auto) 13.8 L [place] % (Auto) 6.5 Eos % (Auto) 2.1 Baso % (Auto) 0.3 Lymph # (Auto) 2.46 [place] # (Auto) 1.2 H Eos # (Auto) 0.4 H Baso # (Auto) 0.1 Abs Immat Gran (auto) 0.27 H Absolute Neuts (auto) 13.5 H Absolute Nucleated RBC 0.000 Band Neutrophils % Not Reportable Nucleated RBC % 0.0 Platelet Estimate Adequate Hypochromasia 1+ Anisocytosis 1+ Schistocytes None seen Sodium 139 Potassium 3.7 Chloride 107 Carbon Dioxide 31 H Anion Gap 1 L BUN 19 Creatinine 0.41 L Estim Creat Clear Calc 152 Estimated GFR > 60 Glucose 114 H POC Capillary Glucose 117 H Calcium 7.9 L Iron 21 L TIBC 180 L % Saturation 12 L Triglycerides Vitamin B12 307.0 Folate 5.2 Quality VTE Prophylaxis VTE prophylaxis: pharmacologic ordered Hospitalist MIPS Advance Care Plan I have confirmed that the patient's Advanced Care Plan is present, code status is documented, or surrogate decision maker is listed in patient medical record.: Yes Medication Reconciliation I have utilized all available resources to obtain, update and review the patients current medications (includes all prescriptions, OTC, herbals, cannabis, and nutritional supplements).: Yes
[2025-09-17] MEDS: FAT EMULSIONS IV 20% 250 ML 20.83 ML IVPB (14:06)
[2025-09-17] MEDS: AMINO ACIDS 5%/D15W/E-LYTES/CA 1,000 ML with MULTIVITAMINS-12 INJ VIAL 1 1.25 ML, MULTI... 60 ML IV CONT (14:06)
[2025-09-17] MEDS: MORPHINE SULFATE (*CRX) 4 MG/ML INJ 1 MG IV PUSH (17:15)
[2025-09-18] VITALS (11 sets, daily range): BP systolic 106–119; BP diastolic 62–70; PULSE 81–93; RESP 12–18; TEMP 36.4–37.1; O2SAT 91–97
[2025-09-18 05:05] LABS: Hematocrit 31.0 % (42.0-52.0); Hemoglobin 9.3 g/dL (14.0-18.0); Immature Granulocyte Percent A 1.4 % (0-0.5); Lymphocytes Absolute Auto 2.12 K/mm3 (0.9-3.2); Mean Corpuscular HGB Conc 30.0 g/dl (32-36); Mean Corpuscular Hemoglobin 28.8 pg (26-34); Mean Corpuscular Volume 96.0 fl (80-100); Nucleated Red Blood Cells Absolute Auto 0.000 K/mm3 (0.0-0.012); Nucleated Red Blood Cells Perc 0.0 % (0.0-0.2); Platelet Count Result 274 k/mm3 (150-375); Red Blood Count 3.23 M/mm3 (4.6-6.20); White Blood Count 15.6 K/mm3 (4.5-10.0)
[2025-09-18 05:18] LABS: Alanine Aminotransferase 22 U/L (6-50); Albumin Level 2.5 g/dL (3.5-5.1); Alkaline Phosphatase 67 U/L (38-126); Anion Gap 0 mmol/L (4-12); Aspartate Amino Transferase 27 U/L (17-59); Bilirubin,Total 0.4 mg/dL (0.2-1.3); Blood Urea Nitrogen 19 mg/dL (9-20); Calcium 7.9 mg/dL (8.4-10.2); Carbon Dioxide 31 mmol/L (22-30); Chloride 105 mmol/L (98-107); Estimated CRCL calculation 127 ml/min; Estimated Glomerular Filt Rate > 60; Glucose 122 mg/dL (65-110); Potassium 4.0 mmol/L (3.4-5.0); Sodium 136 mmol/L (137-145); Total Protein 5.3 g/dL (6.3-8.2)
[2025-09-18] MEDS: CENTRAL LINE FLUSH 10 ML IV PUSH ×3 (05:45→22:03)
--- NOTE | 2025-09-18 07:22 | P.PNIM_ITS ---
Progress Note: A&P Assessment and Plan (1) Septic shock: Code(s): A41.9 - Sepsis, unspecified organism; R65.21 - Severe sepsis with septic shock Status: Acute Assessment and Plan: Sepsis secondary to UTI. Now resolved. Urine culture and blood cultures positive for Proteus mirabilis. Multidrug resistant. Cefepime changed to ceftriaxone, completed 7 days. Repeat blood cultures pending. wbc increased from 14.6 to 17.9 to 18.1 to 17.8 if wbc continues to rise tomorrow will repeat blood cultures, UA and CXR AM labs ordered (2) Pulmonary embolism: Code(s): I26.99 - Other pulmonary embolism without acute cor pulmonale Status: Acute Assessment and Plan: CTA confirmed PE. In light of significant hematuria and drop in hemoglobin is anticoagulation was started but then held. Hematology consulted. IVC filter not advise as patient did not have evidence of DVT. On 09/13/2025 CBI has been off and urine without any further hematuria. Was restarted on anticoagulation with heparin GTT on 09/13. If patient is able to take p.o. and he has no further bleeding, transition to oral anticoagulant. follow up results for modified barium swallow to transition to oral anticoagulant patient passed MBS with pureed diet and thickened liquids s/p IV heparin drip Eliquis 10 mg PO BID x 7 days followed by 5 mg BID, placed on hold 09/18 monitor for signs or symptoms of bleeding (3) CHELSEA (acute kidney injury): Code(s): N17.9 - Acute kidney failure, unspecified Status: Resolved Assessment and Plan: Secondary to sepsis hypotension and hypovolemia Renal function improved with IV fluids Creatinine now normalized Monitor urine output electrolytes and creatinine (4) Acute hemorrhagic cystitis: Code(s): N30.01 - Acute cystitis with hematuria Status: Acute Assessment and Plan: Associated with UTI. CBI has been off, will restart heparin 09/13 and assess for any further hematuria. Patient refused for the catheter to be downsized. Continue to appreciate Urology recommendations. Patient with red colored urine again 09/18, no clots at this time, Placed Eliquis on hold, ordered UA with reflex to culture (5) COPD (chronic obstructive pulmonary disease): Qualifiers: COPD type: unspecified COPD Qualified Code(s): J44.9 - Chronic obstructive pulmonary disease, unspecified Code(s): J44.9 - Chronic obstructive pulmonary disease, unspecified Status: Chronic Assessment and Plan: Bronchodilators p.r.n., breathing comfortably (6) Hypokalemia: Code(s): E87.6 - Hypokalemia Status: Acute Assessment and Plan: Resolved status post replacement. Continue daily BMP and magnesium checks. Currently on TPN. K 3.1 09/15, s/p repletion, improved today to 3.8 AM labs (7) Failure to thrive in adult: Code(s): R62.7 - Adult failure to thrive Status: Acute Assessment and Plan: Patient has been NPO since transfer from ICU. Per patient's daughter Odalys, he has been having significant issues with swallowing in the time just prior to admission. Could be due to significant weakness secondary to sepsis/septic shock with or without element of MS the patient has history of. Patient has refused PEG tube. TPN has started. TPN rate increased on 09/12/2025, transferrin was low. Continue to monitor electrolytes, transferrin. Monitor for refeeding syndrome. Continue telemetry. Spoke with speech therapy, will try a barium swallow again and monitor progress. An unusual option is for the patient to be on long-term TPN however that does not come without risk. At any rate, I am told by care coordinators the local nursing facilities do not allow TPN. Therefore, patient will either need to improve and be able to eat, have a PEG tube, or have hospice consulted. Patient did MBS on 09/14 and started on pureed diet with thickened liquids per nursing patient not eating but a few bites, continue to monitor intake Patient still with poor PO intake, will discuss PEG tube placement vs hospice consult with POA (8) Positive result for methicillin resistant Staphylococcus aureus (MRSA) screening: Code(s): Z22.322 - Carrier or suspected carrier of Methicillin resistant Staphylococcus aureus Status: Acute Assessment and Plan: Contact isolation precautions (9) Pressure ulcers of skin of multiple topographic sites: Code(s): L89.90 - Pressure ulcer of unspecified site, unspecified stage Status: Acute Assessment and Plan: Pressure ulcers on sacrum, left hip, bilateral heels, bilateral ankles. Wound care is on board IV morphine prior to dressing changes due to severe pain. We discussed the risks versus benefits. It has been helping greatly. we will attempt to change this to something oral as patient will not be able to get IV medications at the alf (10) Hypernatremia: Code(s): E87.0 - Hyperosmolality and hypernatremia Status: Acute Assessment and Plan: Hypernatremia improving with TPN. Continue to monitor. (11) Multiple sclerosis: Code(s): G35 - Multiple sclerosis Status: Chronic Assessment and Plan: Seen by Neurology this admission. Patient's mental status waxes and wanes. Continue to monitor. (12) Leukocytosis: Code(s): D72.829 - Elevated white blood cell count, unspecified Status: Acute Assessment and Plan: Patient's wbc count on admission was 36.5 and improved to 14.7 on 09/10 patient s/p 7 days IV cefepime/ceftriaxone for treatment of UTI and bacteremia wbc was rising, 18.1 yesterday, now 17.8 patient is afebrile, VS are stable if wbc continues to elevate in AM will recheck UA, CXR and blood cultures AM labs Subjective Date/time seen: 09/18/25 07:22 Interval history: Patient seen for a follow up visit. Patient lying in bed, in no acute distress. Patient denies acute pain. Nursing reported earlier this morning that the patient's urine was dark red. Orders given to hold Eliquis. Urine in catheter has blood present, no clots at this time. Nursing will notify urology if clots become present to see if they want to resume CBI. Order placed to obtain UA with reflex to culture. Review of Systems Review of Systems: All systems reviewed & are unremarkable except as noted in HPI and below ROS unobtainable: Yes unobtainable due to medical condition and unobtainable due to mental status Exam Const: General: comfortable and no acute distress Eyes: General: appearance normal, both eyes and all related structures Neck: Other: L IJ in place Resp: Effort & Inspection: normal respiratory effort Auscultation: clear to auscultation bilaterally Cardio: Rate: regular rate Rhythm: regular rhythm GI: GI Palp: Yes Soft to palpation and No Tenderness to palpation present (GI) Urinary Catheter: Urinary Catheter: patent and draining and urine red Skin: General skin exam: normal color Other: Sacral, left hip, bilateral heels, bilateral ankle pressure ulcers Neuro: Other: Moves all 4 extremities freely Extrem: General: no edema Objective Data Vital Signs Vital Signs: Vital Signs - 24 hr 09/17/25 08:00 09/17/25 08:00 09/17/25 12:00 Temperature Pulse Rate 94 88 Respiratory Rate Blood Pressure Pulse Oximetry 95 Oxygen Delivery Nasal Cannula Oxygen Flow Rate 2 Fraction of Inspired Oxygen 09/17/25 14:00 09/17/25 16:00 09/17/25 19:51 Temperature 97.9 F 97.4 F L Pulse Rate 97 92 97 Respiratory Rate 20 18 Blood Pressure 119/67 124/87 Pulse Oximetry 100 94 Oxygen Delivery Oxygen Flow Rate Fraction of Inspired Oxygen 09/17/25 20:00 09/17/25 20:00 09/17/25 20:39 Temperature Pulse Rate 77 89 77 Respiratory Rate 20 20 Blood Pressure Pulse Oximetry 90 90 Oxygen Delivery Nasal Cannula Nasal Cannula Oxygen Flow Rate 2 3 Fraction of Inspired Oxygen 32 32 09/18/25 00:00 09/18/25 04:00 09/18/25 06:00 Temperature 97.5 F L Pulse Rate 85 81 83 Respiratory Rate 17 Blood Pressure 119/64 Pulse Oximetry 94 Oxygen Delivery Oxygen Flow Rate Fraction of Inspired Oxygen Intake/Output Intake/Output: Intake & Output 09/15/25 09/16/25 09/17/25 09/18/25 23:59 23:59 23:59 23:59 Intake Total 1602.5 2555.0 1357 200 Output Total 650 1150 1515 650 Balance 952.5 1405.0 -158 -450 Meds/Results Medications: Active Medications Generic Name Dose Route Start Last Admin Trade Name Freq PRN Reason Stop Dose Admin Acetaminophen 650 mg 09/06/25 18:10 Acetaminophen 650 Mg Suppository RECTAL Q6H PRN Mild Pain (1-3) or Fever Albuterol/Ipratropium 3 ml 09/06/25 18:09 Ipratropium 0.5 Mg/Albuterol Sulfate 2.5 Mg (Base) Ampul.Neb 3 Ml INHALATION Q6HRT PRN copd Alteplase, Recombinant 2 mg 09/14/25 20:43 09/15/25 05:20 Alteplase 2 Mg Vial (Cathflo) IV PUSH 2 mg ONCE PRN Administration Line Occlusion Apixaban 10 mg 09/15/25 21:00 09/17/25 20:50 Apixaban 5 Mg Tablet PO 09/22/25 20:59 10 mg Q12HR MICAH Administration Apixaban 5 mg 09/22/25 21:00 Apixaban 5 Mg Tablet PO Q12HR MICAH Dextrose 12.5 gm 09/06/25 18:09 Dextrose 50% 25 Gm/50 Ml Syringe IV PUSH PRN PRN Hypoglycemia Protocol Glucagon 1 mg 09/06/25 18:09 Glucagon For Inj 1 Mg Vial IM PRN PRN Hypoglycemia Protocol Glucose 15 gm 09/06/25 18:09 Glucose Oral Gel 15 Gm Of Glucse In 37.5 Gm Tube PO PRN PRN Hypoglycemia Protocol Dextrose 1,000 mls @ 100 mls/hr 09/06/25 18:09 Dextrose 5% 1,000 Ml IVPB PRN PRN Hypoglycemia Protocol Dextrose 1,000 mls @ 50 mls/hr 09/09/25 13:59 Dextrose 10% IV CONT .Q20H PRN if PN is interrupted Multivitamins 1.25 ml/ 1,002.5 mls @ 60 mls/hr 09/09/25 15:00 09/17/25 14:06 Multivitamins 1.25 ml/ Amino IV CONT 60 mls/hr Acids/Electrolytes/Dextrose .[id number] MICAH Administration Protocol Fat Emulsion Intravenous 250 mls @ 20.833 mls/hr 09/09/25 15:00 09/17/25 14:06 Lipids 20% IVPB 20.83 mls/hr Q24H MICAH Administration Insulin Human Regular 0 units 09/09/25 18:00 09/18/25 06:21 Insulin Human Regular (*Bkc) 100 Units/Ml SUB-Q Not Given Q6HR [facility] [place] Protocol Morphine Sulfate 1 mg 09/13/25 14:17 09/17/25 17:15 Morphine Sulfate (*Crx) 4 Mg/Ml Inj IV PUSH 1 mg PRN PRN Administration prior to wound dressing changes Sodium Chloride 10 ml 09/07/25 14:00 09/18/25 05:45 Central Line Flush IV PUSH 10 ml Q8HR MICAH Administration Sodium Chloride 20 ml 09/07/25 10:44 09/17/25 05:28 Central Line Flush IV PUSH 20 ml PRN PRN Administration after blood draws Sodium Hypochlorite 1 applic 09/07/25 14:00 09/17/25 09:04 Sod Hypochlorite 1/4 Strength 473 Ml TOPICAL 1 applic DAILY MICAH Administration Radiology Results: ITS Impressions Chest X-Ray 09/06/25 12:50 Impression: No acute cardiopulmonary abnormality. Chest/Abdomen/Pelvis CTA 09/06/25 14:07 IMPRESSION: 1. Filling defect right upper and middle lobe segmental and subsegmental pulmonary artery consistent with pulmonary embolism, small thrombus burden. 2: Interval development of extensive mural thickening and enhancement within the bladder wall, consistent with cystitis. No evidence for bladder fistula. Mondragon catheter present. 3: Extensive subcutaneous edema with small volume of ascites, consistent with anasarca. Dr. Tariq Rivero discussed with Dr. 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 Renal Ultrasound 09/06/25 21:28 IMPRESSION: There is a Mondragon catheter within the bladder. Left renal cyst measures 2 cm. Venous Doppler Study 09/07/25 14:37 Impression: Negative for DVT. Modified Barium Swallow 09/14/25 12:59 IMPRESSION: Aspiration with thin barium. See also speech therapist notes for complete evaluation. Labs Labs: Laboratory Results - last 24 hr 09/17/25 09/17/25 09/17/25 05:22 11:40 18:58 WBC RBC Hgb Hct MCV MCH MCHC RDW Plt Count MPV Immature Gran % (Auto) Neut % (Auto) Lymph % (Auto) [place] % (Auto) Eos % (Auto) Baso % (Auto) Lymph # (Auto) [place] # (Auto) Eos # (Auto) Baso # (Auto) Abs Immat Gran (auto) Absolute Neuts (auto) Absolute Nucleated RBC Nucleated RBC % Sodium 139 Potassium 3.7 Chloride 107 Carbon Dioxide 31 H Anion Gap 1 L BUN 19 Creatinine 0.41 L Estim Creat Clear Calc 152 Estimated GFR > 60 Glucose 114 H POC Capillary Glucose 117 H 92 Calcium 7.9 L Iron 21 L TIBC 180 L % Saturation 12 L Total Bilirubin AST ALT Alkaline Phosphatase Total Protein Albumin Vitamin B12 307.0 Folate 5.2 09/17/25 09/18/25 09/18/25 20:14 01:14 04:54 WBC 15.6 H RBC 3.23 L Hgb 9.3 L Hct 31.0 L MCV 96.0 MCH 28.8 MCHC 30.0 L RDW 17.2 H Plt Count 274 MPV 11.9 H Immature Gran % (Auto) 1.4 H Neut % (Auto) 74.4 H Lymph % (Auto) 13.6 L [place] % (Auto) 8.6 H Eos % (Auto) 1.8 Baso % (Auto) 0.2 Lymph # (Auto) 2.12 [place] # (Auto) 1.4 H Eos # (Auto) 0.3 Baso # (Auto) 0.0 Abs Immat Gran (auto) 0.22 H Absolute Neuts (auto) 11.6 H Absolute Nucleated RBC 0.000 Nucleated RBC % 0.0 Sodium 136 L Potassium 4.0 Chloride 105 Carbon Dioxide 31 H Anion Gap 0 L BUN 19 Creatinine 0.50 L Estim Creat Clear Calc 127 Estimated GFR > 60 Glucose 122 H POC Capillary Glucose 98 141 H Calcium 7.9 L Iron TIBC % Saturation Total Bilirubin 0.4 AST 27 ALT 22 Alkaline Phosphatase 67 Total Protein 5.3 L Albumin 2.5 L Vitamin B12 Folate 09/18/25 06:21 WBC RBC Hgb Hct MCV MCH MCHC RDW Plt Count MPV Immature Gran % (Auto) Neut % (Auto) Lymph % (Auto) [place] % (Auto) Eos % (Auto) Baso % (Auto) Lymph # (Auto) [place] # (Auto) Eos # (Auto) Baso # (Auto) Abs Immat Gran (auto) Absolute Neuts (auto) Absolute Nucleated RBC Nucleated RBC % Sodium Potassium Chloride Carbon Dioxide Anion Gap BUN Creatinine Estim Creat Clear Calc Estimated GFR Glucose POC Capillary Glucose 123 H Calcium Iron TIBC % Saturation Total Bilirubin AST ALT Alkaline Phosphatase Total Protein Albumin Vitamin B12 Folate Quality VTE Prophylaxis VTE prophylaxis: mechanical ordered Hospitalist MIPS Advance Care Plan I have confirmed that the patient's Advanced Care Plan is present, code status is documented, or surrogate decision maker is listed in patient medical record.: Yes Medication Reconciliation I have utilized all available resources to obtain, update and review the patients current medications (includes all prescriptions, OTC, herbals, cannabis, and nutritional supplements).: Yes
[2025-09-18] MEDS: AMINO ACIDS 5%/D15W/E-LYTES/CA 1,000 ML with MULTIVITAMINS-12 INJ VIAL 1 1.25 ML, MULTI... 60 ML IV CONT ×2 (07:23→21:49)
[2025-09-18] MEDS: SOD HYPOCHLORITE 1/4 STRENGTH 473 ML 1 APPLIC TOPICAL (07:56)
[2025-09-18 13:14] LABS: Triglycerides 79 mg/dL (<150)
[2025-09-18] MEDS: FAT EMULSIONS IV 20% 250 ML 20.83 ML IVPB (15:00)
[2025-09-18] MEDS: MORPHINE SULFATE (*CRX) 4 MG/ML INJ 1 MG IV PUSH (17:47)
[2025-09-18 19:11] LABS: Add Urine Microscopic? YES; Appearance Urine Turbid (Clear); Glucose Urine UA Negative (Negative); Leukocyte Esterase Ur 3+ LEU/UL (Negative); Need Manual Microscopic Reviewed; Nitrate Urine Negative (Negative); Specific Grav Ur 1.016 (1.001-1.035)
[2025-09-19] VITALS (11 sets, daily range): BP systolic 112–121; BP diastolic 54–99; PULSE 83–114; RESP 17–18; TEMP 36.3–37; O2SAT 94–96
[2025-09-19] MEDS: CENTRAL LINE FLUSH 10 ML IV PUSH ×3 (06:12→22:00)
[2025-09-19 06:42] LABS: Hematocrit 29.9 % (42.0-52.0); Hemoglobin 9.1 g/dL (14.0-18.0); Immature Granulocyte Percent A 1.5 % (0-0.5); Lymphocytes Absolute Auto 2.02 K/mm3 (0.9-3.2); Mean Corpuscular HGB Conc 30.4 g/dl (32-36); Mean Corpuscular Hemoglobin 28.8 pg (26-34); Mean Corpuscular Volume 94.6 fl (80-100); Nucleated Red Blood Cells Absolute Auto 0.000 K/mm3 (0.0-0.012); Nucleated Red Blood Cells Perc 0.0 % (0.0-0.2); Platelet Count Result 286 k/mm3 (150-375); Red Blood Count 3.16 M/mm3 (4.6-6.20); White Blood Count 13.3 K/mm3 (4.5-10.0)
[2025-09-19 06:55] LABS: INR 1.1; Prothrombin Time 13.7 Seconds (11.1-14.7)
[2025-09-19 06:56] LABS: Partial Thromboplastin Time 33.7 Seconds (22.3-36.8)
[2025-09-19 07:06] LABS: Alanine Aminotransferase 21 U/L (6-50); Albumin Level 2.5 g/dL (3.5-5.1); Alkaline Phosphatase 65 U/L (38-126); Anion Gap 1 mmol/L (4-12); Aspartate Amino Transferase 24 U/L (17-59); Bilirubin,Total 0.4 mg/dL (0.2-1.3); Blood Urea Nitrogen 18 mg/dL (9-20); Calcium 8.1 mg/dL (8.4-10.2); Carbon Dioxide 30 mmol/L (22-30); Chloride 103 mmol/L (98-107); Estimated CRCL calculation 135 ml/min; Estimated Glomerular Filt Rate > 60; Glucose 123 mg/dL (65-110); Magnesium 2.1 mg/dL (1.6-2.3); Potassium 4.2 mmol/L (3.4-5.0); Sodium 134 mmol/L (137-145); Total Protein 5.4 g/dL (6.3-8.2)
[2025-09-19 07:13] LABS: Transferrin 119 mg/dL (206-381)
--- NOTE | 2025-09-19 08:38 | WPDUROPN2 ---
Progress Note: A&P Assessment and Plan (1) Gross hematuria: Code(s): R31.0 - Gross hematuria Status: Acute Assessment and Plan: - Gross hematuria over the weekend when restating on AC - Urine currently clear yellow; no gross hematuria, no clots - No CBI needed currently - May continue to attempt to resume AC use; in the setting of recurrent gross hematuria monitor for singificant bleeding or clots (2) Urinary retention: Code(s): R33.9 - Retention of urine, unspecified Status: Acute Assessment and Plan: - Chronic catheter use - If pt amenable consider downsizing catheter (3) UTI (urinary tract infection): Qualifiers: Urinary tract infection type: acute cystitis Hematuria presence: with hematuria Qualified Code(s): N30.01 - Acute cystitis with hematuria Code(s): N39.0 - Urinary tract infection, site not specified Status: Suspected Assessment and Plan: - Repeat UCx pending - Initial culture growing out Proteus - Continue culture driven Abx per primary Plan Urology to continue following peripherally; please call with further questions Subjective Subjective Date/Time Seen: 09/19/25 08:38 Interval history: NAEO; pt resting comfortably in bed. Urine in Mondragon catheter bag clear yellow without hematuria or clots. Exam Const: General: comfortable and no acute distress Other: Pt laying in bed, responsive to questions Eyes: General: appearance normal, both eyes and all related structures Resp: Effort & Inspection: normal respiratory effort Urinary Catheter: Urinary Catheter: patent and draining and urine clear (yellow, no gross hematuria, no clots) Skin: General skin exam: normal color Psych: Speech and movement: Normal speech and movement present Affect: normal affect Objective Data Vital Signs Vital Signs: Vital Signs - 24 hr 09/18/25 10:14 09/18/25 10:30 09/18/25 10:30 Temperature Pulse Rate 90 Respiratory Rate Blood Pressure Pulse Oximetry 91 91 Oxygen Delivery Nasal Cannula Nasal Cannula Oxygen Flow Rate 3 2 Fraction of Inspired Oxygen 32 09/18/25 12:00 09/18/25 14:00 09/18/25 16:00 Temperature 37.1 C Pulse Rate 89 86 87 Respiratory Rate 12 Blood Pressure 115/70 Pulse Oximetry 97 Oxygen Delivery Oxygen Flow Rate Fraction of Inspired Oxygen 09/18/25 17:34 09/18/25 20:00 09/18/25 20:00 Temperature Pulse Rate 88 88 89 Respiratory Rate 16 Blood Pressure 106/62 Pulse Oximetry 97 Oxygen Delivery Nasal Cannula Oxygen Flow Rate 2 Fraction of Inspired Oxygen 32 09/18/25 20:28 09/19/25 00:00 09/19/25 04:00 Temperature 36.5 C Pulse Rate 93 88 83 Respiratory Rate 18 Blood Pressure 107/68 Pulse Oximetry 97 Oxygen Delivery Oxygen Flow Rate Fraction of Inspired Oxygen 09/19/25 05:49 Temperature 36.3 C L Pulse Rate 88 Respiratory Rate 18 Blood Pressure 112/68 Pulse Oximetry 96 Oxygen Delivery Oxygen Flow Rate Fraction of Inspired Oxygen Intake/Output Intake/Output: Intake & Output 09/16/25 09/17/25 09/18/25 09/19/25 23:59 23:59 23:59 23:59 Intake Total 2555.0 1357 2358.5 600 Output Total 1150 1515 2225 680 Balance 1405.0 -158 133.5 -80 Meds/Results Medications: Active Medications Generic Name Dose Route Start Last Admin Trade Name Freq PRN Reason Stop Dose Admin Acetaminophen 650 mg 09/06/25 18:10 Acetaminophen 650 Mg Suppository RECTAL Q6H PRN Mild Pain (1-3) or Fever Albuterol/Ipratropium 3 ml 09/06/25 18:09 Ipratropium 0.5 Mg/Albuterol Sulfate 2.5 Mg (Base) Ampul.Neb 3 Ml INHALATION Q6HRT PRN copd Alteplase, Recombinant 2 mg 09/14/25 20:43 09/15/25 05:20 Alteplase 2 Mg Vial (Cathflo) IV PUSH 2 mg ONCE PRN Administration Line Occlusion Apixaban 10 mg 09/15/25 21:00 09/17/25 20:50 Apixaban 5 Mg Tablet PO 09/22/25 20:59 10 mg On Hold: 09/18/25 08:10 Q12HR MICAH Administration Apixaban 5 mg 09/22/25 21:00 Apixaban 5 Mg Tablet PO Q12HR MICAH Dextrose 12.5 gm 09/06/25 18:09 Dextrose 50% 25 Gm/50 Ml Syringe IV PUSH PRN PRN Hypoglycemia Protocol Glucagon 1 mg 09/06/25 18:09 Glucagon For Inj 1 Mg Vial IM PRN PRN Hypoglycemia Protocol Glucose 15 gm 09/06/25 18:09 Glucose Oral Gel 15 Gm Of Glucse In 37.5 Gm Tube PO PRN PRN Hypoglycemia Protocol Dextrose 1,000 mls @ 100 mls/hr 09/06/25 18:09 Dextrose 5% 1,000 Ml IVPB PRN PRN Hypoglycemia Protocol Dextrose 1,000 mls @ 50 mls/hr 09/09/25 13:59 Dextrose 10% IV CONT .Q20H PRN if PN is interrupted Multivitamins 1.25 ml/ 1,002.5 mls @ 60 mls/hr 09/09/25 15:00 09/18/25 21:49 Multivitamins 1.25 ml/ Amino IV CONT 60 mls/hr Acids/Electrolytes/Dextrose .[id number] MICAH Administration Protocol Fat Emulsion Intravenous 250 mls @ 20.833 mls/hr 09/09/25 15:00 09/19/25 03:12 Lipids 20% IVPB Infused Q24H MICAH Infusion Insulin Human Regular 0 units 09/09/25 18:00 09/19/25 06:11 Insulin Human Regular (*Bkc) 100 Units/Ml SUB-Q Not Given Q6HR [facility] Protocol Morphine Sulfate 1 mg 09/13/25 14:17 09/18/25 17:47 Morphine Sulfate (*Crx) 4 Mg/Ml Inj IV PUSH 1 mg PRN PRN Administration prior to wound dressing changes Sodium Chloride 10 ml 09/07/25 14:00 09/19/25 06:12 Central Line Flush IV PUSH 10 ml Q8HR MICAH Administration Sodium Chloride 20 ml 09/07/25 10:44 09/17/25 05:28 Central Line Flush IV PUSH 20 ml PRN PRN Administration after blood draws Sodium Hypochlorite 1 applic 09/07/25 14:00 09/18/25 07:56 Sod Hypochlorite 1/4 Strength 473 Ml TOPICAL 1 applic DAILY MICAH Administration Radiology Results: ITS Impressions Chest X-Ray 09/06/25 12:50 Impression: No acute cardiopulmonary abnormality. Chest/Abdomen/Pelvis CTA 09/06/25 14:07 IMPRESSION: 1. Filling defect right upper and middle lobe segmental and subsegmental pulmonary artery consistent with pulmonary embolism, small thrombus burden. 2: Interval development of extensive mural thickening and enhancement within the bladder wall, consistent with cystitis. No evidence for bladder fistula. Mondragon catheter present. 3: Extensive subcutaneous edema with small volume of ascites, consistent with anasarca. Dr. Tariq Rivero discussed with Dr. 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 Renal Ultrasound 09/06/25 21:28 IMPRESSION: There is a Mondragon catheter within the bladder. Left renal cyst measures 2 cm. Venous Doppler Study 09/07/25 14:37 Impression: Negative for DVT. Modified Barium Swallow 09/14/25 12:59 IMPRESSION: Aspiration with thin barium. See also speech therapist notes for complete evaluation. Labs Labs: Laboratory Results - last 24 hr 09/18/25 09/18/25 09/18/25 04:54 11:55 18:08 WBC RBC Hgb Hct MCV MCH MCHC RDW Plt Count MPV Immature Gran % (Auto) Neut % (Auto) Lymph % (Auto) [place] % (Auto) Eos % (Auto) Baso % (Auto) Lymph # (Auto) [place] # (Auto) Eos # (Auto) Baso # (Auto) Abs Immat Gran (auto) Absolute Neuts (auto) Absolute Nucleated RBC Nucleated RBC % PT INR APTT Sodium Potassium Chloride Carbon Dioxide Anion Gap BUN Creatinine Estim Creat Clear Calc Estimated GFR Glucose POC Capillary Glucose 107 H 103 Calcium Magnesium Transferrin Total Bilirubin AST ALT Alkaline Phosphatase Total Protein Albumin Triglycerides 79 Urine Color Urine Appearance Urine pH Ur Specific [place] Urine Protein Urine Glucose (UA) Urine Ketones Ur Blood (Man) Urine Nitrate Urine Bilirubin Urine Urobilinogen Add Ur Microanalysis Leukocyte Esterase Rfl Urine RBC Urine WBC Ur Squamous Epith Cells Urine Bacteria Urine Casts 09/18/25 09/18/25 09/18/25 18:09 19:45 23:26 WBC RBC Hgb Hct MCV MCH MCHC RDW Plt Count MPV Immature Gran % (Auto) Neut % (Auto) Lymph % (Auto) [place] % (Auto) Eos % (Auto) Baso % (Auto) Lymph # (Auto) [place] # (Auto) Eos # (Auto) Baso # (Auto) Abs Immat Gran (auto) Absolute Neuts (auto) Absolute Nucleated RBC Nucleated RBC % PT INR APTT Sodium Potassium Chloride Carbon Dioxide Anion Gap BUN Creatinine Estim Creat Clear Calc Estimated GFR Glucose POC Capillary Glucose 112 H 140 H Calcium Magnesium Transferrin Total Bilirubin AST ALT Alkaline Phosphatase Total Protein Albumin Triglycerides Urine Color Yellow Urine Appearance Turbid H Urine pH 6.0 Ur Specific [place] 1.016 Urine Protein 2+ H Urine Glucose (UA) Negative Urine Ketones Negative Ur Blood (Man) 3+ H Urine Nitrate Negative Urine Bilirubin Negative Urine Urobilinogen 0.2 Add Ur Microanalysis Reviewed Leukocyte Esterase Rfl 3+ H Urine RBC >100 H Urine WBC >100 H Ur Squamous Epith Cells None seen Urine Bacteria Rare Urine Casts 6-10 09/19/25 09/19/25 04:58 06:36 WBC 13.3 H RBC 3.16 L Hgb 9.1 L Hct 29.9 L MCV 94.6 MCH 28.8 MCHC 30.4 L RDW 17.2 H Plt Count 286 MPV 11.6 H Immature Gran % (Auto) 1.5 H Neut % (Auto) 71.5 Lymph % (Auto) 15.2 L [place] % (Auto) 9.4 H Eos % (Auto) 2.2 Baso % (Auto) 0.2 Lymph # (Auto) 2.02 [place] # (Auto) 1.3 H Eos # (Auto) 0.3 Baso # (Auto) 0.0 Abs Immat Gran (auto) 0.20 H Absolute Neuts (auto) 9.5 H Absolute Nucleated RBC 0.000 Nucleated RBC % 0.0 PT 13.7 INR 1.1 APTT 33.7 Sodium 134 L Potassium 4.2 Chloride 103 Carbon Dioxide 30 Anion Gap 1 L BUN 18 Creatinine 0.47 L Estim Creat Clear Calc 135 Estimated GFR > 60 Glucose 123 H POC Capillary Glucose 124 H Calcium 8.1 L Magnesium 2.1 Transferrin 119 L Total Bilirubin 0.4 AST 24 ALT 21 Alkaline Phosphatase 65 Total Protein 5.4 L Albumin 2.5 L Triglycerides Urine Color Urine Appearance Urine pH Ur Specific [place] Urine Protein Urine Glucose (UA) Urine Ketones Ur Blood (Man) Urine Nitrate Urine Bilirubin Urine Urobilinogen Add Ur Microanalysis Leukocyte Esterase Rfl Urine RBC Urine WBC Ur Squamous Epith Cells Urine Bacteria Urine Casts
[2025-09-19] MEDS: FAT EMULSIONS IV 20% 250 ML 20.83 ML IVPB (14:23)
[2025-09-19] MEDS: AMINO ACIDS 5%/D15W/E-LYTES/CA 1,000 ML with MULTIVITAMINS-12 INJ VIAL 1 1.25 ML, MULTI... 60 ML IV CONT (14:24)
[2025-09-19] MEDS: SOD HYPOCHLORITE 1/4 STRENGTH 473 ML 1 APPLIC TOPICAL (14:26)
--- NOTE | 2025-09-19 15:39 | P.PNIM_ITS ---
Progress Note: A&P Assessment and Plan (1) Septic shock: Code(s): A41.9 - Sepsis, unspecified organism; R65.21 - Severe sepsis with septic shock Status: Acute Assessment and Plan: Sepsis secondary to UTI. Now resolved. Urine culture and blood cultures positive for Proteus mirabilis. Multidrug resistant. Cefepime changed to ceftriaxone, completed 7 days. Repeat blood cultures pending. wbc remains elevated 14, afebrile, repeat urine culture pending AM labs ordered (2) Pulmonary embolism: Code(s): I26.99 - Other pulmonary embolism without acute cor pulmonale Status: Acute Assessment and Plan: CTA confirmed PE. In light of significant hematuria and drop in hemoglobin is anticoagulation was started but then held. Hematology consulted. IVC filter not advise as patient did not have evidence of DVT. On 09/13/2025 CBI has been off and urine without any further hematuria. Was restarted on anticoagulation with heparin GTT on 09/13. transitioned to oral Eliquis 10 mg BID x 7 days followed by 5 mg BID on 09/15 Eliquis placed on hold 09/18 due to gross hematuria monitor for signs or symptoms of bleeding patient denies dyspnea, on 2l oxygen which is his baseline (3) CHELSEA (acute kidney injury): Code(s): N17.9 - Acute kidney failure, unspecified Status: Resolved Assessment and Plan: Secondary to sepsis hypotension and hypovolemia Renal function improved with IV fluids Creatinine now normalized Monitor urine output electrolytes and creatinine (4) Acute hemorrhagic cystitis: Code(s): N30.01 - Acute cystitis with hematuria Status: Acute Assessment and Plan: Associated with UTI. CBI has been off, will restart heparin 09/13 and assess for any further hematuria. Patient refused for the catheter to be downsized. Continue to appreciate [facility] for special care recommendations. Patient with red colored urine again 09/18, no clots at this time, Placed Eliquis on hold, ordered UA with reflex to culture follow up urine culture results, still pending AM labs (5) COPD (chronic obstructive pulmonary disease): Qualifiers: COPD type: unspecified COPD Qualified Code(s): J44.9 - Chronic obstructive pulmonary disease, unspecified Code(s): J44.9 - Chronic obstructive pulmonary disease, unspecified Status: Chronic Assessment and Plan: Bronchodilators p.r.n., breathing comfortably (6) Hypokalemia: Code(s): E87.6 - Hypokalemia Status: Acute Assessment and Plan: Resolved status post replacement. Continue daily BMP and magnesium checks. Currently on TPN. AM labs (7) Failure to thrive in adult: Code(s): R62.7 - Adult failure to thrive Status: Acute Assessment and Plan: Patient has been NPO since transfer from ICU. Per patient's daughter Odalys, he has been having significant issues with swallowing in the time just prior to admission. Could be due to significant weakness secondary to sepsis/septic shock with or without element of MS the patient has history of. Patient has refused PEG tube. TPN has started. TPN rate increased on 09/12/2025, transferrin was low. Continue to monitor electrolytes, transferrin. Monitor for refeeding syndrome. Continue telemetry. Spoke with speech therapy, will try a barium swallow again and monitor progress. An unusual option is for the patient to be on long-term TPN however that does not come without risk. At any rate, I am told by care coordinators the local nursing facilities do not allow TPN. Therefore, patient will either need to improve and be able to eat, have a PEG tube, or have hospice consulted. Patient did MBS on 09/14 and started on pureed diet with thickened liquids per nursing patient not eating but a few bites, continue to monitor intake Patient still with poor PO intake, will discuss PEG tube placement vs hospice consult with POA, attempted to call with no answer, will attempt to reach out again tomorrow (8) Positive result for methicillin resistant Staphylococcus aureus (MRSA) screening: Code(s): Z22.322 - Carrier or suspected carrier of Methicillin resistant Staphylococcus aureus Status: Acute Assessment and Plan: Contact isolation precautions (9) Pressure ulcers of skin of multiple topographic sites: Code(s): L89.90 - Pressure ulcer of unspecified site, unspecified stage Status: Acute Assessment and Plan: Pressure ulcers on sacrum, left hip, bilateral heels, bilateral ankles. Wound care is on board IV morphine prior to dressing changes due to severe pain. We discussed the risks versus benefits. It has been helping greatly. we will attempt to change this to something oral as patient will not be able to get IV medications at the assisted (10) Hypernatremia: Code(s): E87.0 - Hyperosmolality and hypernatremia Status: Acute Assessment and Plan: Hypernatremia improving with TPN. Continue to monitor. (11) Multiple sclerosis: Code(s): G35 - Multiple sclerosis Status: Chronic Assessment and Plan: Seen by Neurology this admission. Patient's mental status waxes and wanes. Continue to monitor. (12) Leukocytosis: Code(s): D72.829 - Elevated white blood cell count, unspecified Status: Acute Assessment and Plan: Patient's wbc count on admission was 36.5 and improved to 14.7 on 09/10 patient s/p 7 days IV cefepime/ceftriaxone for treatment of UTI and bacteremia wbc still elevated 14, urine culture is pending patient is afebrile, VS are stable AM labs Subjective Date/time seen: 09/19/25 15:39 Interval history: Patient seen for a follow up visit. Patient denies acute pain. Patient's urine does not appear to have blood in it now, yellow in color. Patient's Eliquis and aspirin on hold. Patient continues on pureed diet with thickened liquids but has very poor PO intake. patient continues on TPN at this time. Call placed to patient's daughter to discuss PEG tube vs hospice consult, no answer. Will attempt again tomorrow. Review of Systems Review of Systems: All systems reviewed & are unremarkable except as noted in HPI and below ROS unobtainable: Yes unobtainable due to medical condition and unobtainable due to mental status Exam 2 Const: General: comfortable and no acute distress Eyes: General: appearance normal, both eyes and all related structures Neck: Other: L IJ in place Resp: Effort & Inspection: normal respiratory effort Auscultation: clear to auscultation bilaterally Cardio: Rate: regular rate Rhythm: regular rhythm GI: GI Palp: Yes Soft to palpation and No Tenderness to palpation present (GI) Urinary Catheter: Urinary Catheter: patent and draining and urine cloudy Skin: General skin exam: normal color Other: Sacral, left hip, bilateral heels, bilateral ankle pressure ulcers Neuro: Other: Moves all 4 extremities freely Extrem: General: no edema Objective Data Vital Signs Vital Signs: Vital Signs - 24 hr 09/18/25 16:00 09/18/25 17:34 09/18/25 20:00 Temperature Pulse Rate 87 88 88 Respiratory Rate 16 Blood Pressure 106/62 Pulse Oximetry 97 Oxygen Delivery Nasal Cannula Oxygen Flow Rate 2 Fraction of Inspired Oxygen 32 09/18/25 20:00 09/18/25 20:28 09/19/25 00:00 Temperature 97.7 F Pulse Rate 89 93 88 Respiratory Rate 18 Blood Pressure 107/68 Pulse Oximetry 97 Oxygen Delivery Oxygen Flow Rate Fraction of Inspired Oxygen 09/19/25 04:00 09/19/25 05:49 09/19/25 08:00 Temperature 97.3 F L Pulse Rate 83 88 84 Respiratory Rate 18 Blood Pressure 112/68 Pulse Oximetry 96 Oxygen Delivery Oxygen Flow Rate Fraction of Inspired Oxygen 09/19/25 08:15 09/19/25 12:00 09/19/25 14:00 Temperature 97.8 F Pulse Rate 88 103 H 107 H Respiratory Rate 18 17 Blood Pressure 121/54 L Pulse Oximetry 96 96 Oxygen Delivery Nasal Cannula Oxygen Flow Rate 2 Fraction of Inspired Oxygen 32 Intake/Output Intake/Output: Intake & Output 09/16/25 09/17/25 09/18/25 09/19/25 23:59 23:59 23:59 23:59 Intake Total 2555.0 1357 2358.5 2275 Output Total 1150 1515 2225 1030 Balance 1405.0 -158 133.5 1245 Meds/Results Medications: Active Medications Generic Name Dose Route Start Last Admin Trade Name Freq PRN Reason Stop Dose Admin Acetaminophen 650 mg 09/06/25 18:10 Acetaminophen 650 Mg Suppository RECTAL Q6H PRN Mild Pain (1-3) or Fever Albuterol/Ipratropium 3 ml 09/06/25 18:09 Ipratropium 0.5 Mg/Albuterol Sulfate 2.5 Mg (Base) Ampul.Neb 3 Ml INHALATION Q6HRT PRN copd Alteplase, Recombinant 2 mg 09/14/25 20:43 09/15/25 05:20 Alteplase 2 Mg Vial (Cathflo) IV PUSH 2 mg ONCE PRN Administration Line Occlusion Apixaban 10 mg 09/15/25 21:00 09/17/25 20:50 Apixaban 5 Mg Tablet PO 09/22/25 20:59 10 mg On Hold: 09/18/25 08:10 Q12HR MICAH Administration Apixaban 5 mg 09/22/25 21:00 Apixaban 5 Mg Tablet PO Q12HR MICAH Dextrose 12.5 gm 09/06/25 18:09 Dextrose 50% 25 Gm/50 Ml Syringe IV PUSH PRN PRN Hypoglycemia Protocol Glucagon 1 mg 09/06/25 18:09 Glucagon For Inj 1 Mg Vial IM PRN PRN Hypoglycemia Protocol Glucose 15 gm 09/06/25 18:09 Glucose Oral Gel 15 Gm Of Glucse In 37.5 Gm Tube PO PRN PRN Hypoglycemia Protocol Dextrose 1,000 mls @ 100 mls/hr 09/06/25 18:09 Dextrose 5% 1,000 Ml IVPB PRN PRN Hypoglycemia Protocol Dextrose 1,000 mls @ 50 mls/hr 09/09/25 13:59 Dextrose 10% IV CONT .Q20H PRN if PN is interrupted Multivitamins 1.25 ml/ 1,002.5 mls @ 60 mls/hr 09/09/25 15:00 09/19/25 14:24 Multivitamins 1.25 ml/ Amino IV CONT 60 mls/hr Acids/Electrolytes/Dextrose .[id number] MICAH Administration Protocol Fat Emulsion Intravenous 250 mls @ 20.833 mls/hr 09/09/25 15:00 09/19/25 14:23 Lipids 20% IVPB 20.83 mls/hr Q24H MICAH Administration Insulin Human Regular 0 units 09/09/25 18:00 09/19/25 12:23 Insulin Human Regular (*Bkc) 100 Units/Ml SUB-Q Not Given Q6HR MICAH Protocol Morphine Sulfate 1 mg 09/13/25 14:17 09/18/25 17:47 Morphine Sulfate (*Crx) 4 Mg/Ml Inj IV PUSH 1 mg PRN PRN Administration prior to wound dressing changes Sodium Chloride 10 ml 09/07/25 14:00 09/19/25 14:23 Central Line Flush IV PUSH 10 ml Q8HR MICAH Administration Sodium Chloride 20 ml 09/07/25 10:44 09/17/25 05:28 Central Line Flush IV PUSH 20 ml PRN PRN Administration after blood draws Sodium Hypochlorite 1 applic 09/07/25 14:00 09/19/25 14:26 Sod Hypochlorite 1/4 Strength 473 Ml TOPICAL 1 applic DAILY MICAH Administration Radiology Results: ITS Impressions Chest X-Ray 09/06/25 12:50 Impression: No acute cardiopulmonary abnormality. Chest/Abdomen/Pelvis CTA 09/06/25 14:07 IMPRESSION: 1. Filling defect right upper and middle lobe segmental and subsegmental pulmonary artery consistent with pulmonary embolism, small thrombus burden. 2: Interval development of extensive mural thickening and enhancement within the bladder wall, consistent with cystitis. No evidence for bladder fistula. Mondragon catheter present. 3: Extensive subcutaneous edema with small volume of ascites, consistent with anasarca. Dr. Tariq Rivero discussed with Dr. Hector Pritchard MD at 09/06/2025 14:17 SAND SIFTER. Renal Ultrasound 09/06/25 21:28 IMPRESSION: There is a Mondragon catheter within the bladder. Left renal cyst measures 2 cm. Venous Doppler Study 09/07/25 14:37 Impression: Negative for DVT. Modified Barium Swallow 09/14/25 12:59 IMPRESSION: Aspiration with thin barium. See also speech therapist notes for complete evaluation. Labs Labs: Laboratory Results - last 24 hr 09/18/25 09/18/25 09/18/25 18:08 18:09 19:45 WBC RBC Hgb Hct MCV MCH MCHC RDW Plt Count MPV Immature Gran % (Auto) Neut % (Auto) Lymph % (Auto) Yancey % (Auto) Eos % (Auto) Baso % (Auto) Lymph # (Auto) Yancey # (Auto) Eos # (Auto) Baso # (Auto) Abs Immat Gran (auto) Absolute Neuts (auto) Absolute Nucleated RBC Nucleated RBC % PT INR APTT Sodium Potassium Chloride Carbon Dioxide Anion Gap BUN Creatinine Estim Creat Clear Calc Estimated GFR Glucose POC Capillary Glucose 103 112 H Calcium Magnesium Transferrin Total Bilirubin AST ALT Alkaline Phosphatase Total Protein Albumin Urine Color Yellow Urine Appearance Turbid H Urine pH 6.0 Ur Specific [place] 1.016 Urine Protein 2+ H Urine Glucose (UA) Negative Urine Ketones Negative Ur Blood (Man) 3+ H Urine Nitrate Negative Urine Bilirubin Negative Urine Urobilinogen 0.2 Add Ur Microanalysis Reviewed Leukocyte Esterase Rfl 3+ H Urine RBC >100 H Urine WBC >100 H Ur Squamous Epith Cells None seen Urine Bacteria Rare Urine Casts 6-10 09/18/25 09/19/25 09/19/25 23:26 04:58 06:36 WBC 13.3 H RBC 3.16 L Hgb 9.1 L Hct 29.9 L MCV 94.6 MCH 28.8 MCHC 30.4 L RDW 17.2 H Plt Count 286 MPV 11.6 H Immature Gran % (Auto) 1.5 H Neut % (Auto) 71.5 Lymph % (Auto) 15.2 L Yancey % (Auto) 9.4 H Eos % (Auto) 2.2 Baso % (Auto) 0.2 Lymph # (Auto) 2.02 Yancey # (Auto) 1.3 H Eos # (Auto) 0.3 Baso # (Auto) 0.0 Abs Immat Gran (auto) 0.20 H Absolute Neuts (auto) 9.5 H Absolute Nucleated RBC 0.000 Nucleated RBC % 0.0 PT 13.7 INR 1.1 APTT 33.7 Sodium 134 L Potassium 4.2 Chloride 103 Carbon Dioxide 30 Anion Gap 1 L BUN 18 Creatinine 0.47 L Estim Creat Clear Calc 135 Estimated GFR > 60 Glucose 123 H POC Capillary Glucose 140 H 124 H Calcium 8.1 L Magnesium 2.1 Transferrin 119 L Total Bilirubin 0.4 AST 24 ALT 21 Alkaline Phosphatase 65 Total Protein 5.4 L Albumin 2.5 L Urine Color Urine Appearance Urine pH Ur Specific [place] Urine Protein Urine Glucose (UA) Urine Ketones Ur Blood (Man) Urine Nitrate Urine Bilirubin Urine Urobilinogen Add Ur Microanalysis Leukocyte Esterase Rfl Urine RBC Urine WBC Ur Squamous Epith Cells Urine Bacteria Urine Casts 09/19/25 12:12 WBC RBC Hgb Hct MCV MCH MCHC RDW Plt Count MPV Immature Gran % (Auto) Neut % (Auto) Lymph % (Auto) Yancey % (Auto) Eos % (Auto) Baso % (Auto) Lymph # (Auto) Yancey # (Auto) Eos # (Auto) Baso # (Auto) Abs Immat Gran (auto) Absolute Neuts (auto) Absolute Nucleated RBC Nucleated RBC % PT INR APTT Sodium Potassium Chloride Carbon Dioxide Anion Gap BUN Creatinine Estim Creat Clear Calc Estimated GFR Glucose POC Capillary Glucose 113 H Calcium Magnesium Transferrin Total Bilirubin AST ALT Alkaline Phosphatase Total Protein Albumin Urine Color Urine Appearance Urine pH Ur Specific [place] Urine Protein Urine Glucose (UA) Urine Ketones Ur Blood (Man) Urine Nitrate Urine Bilirubin Urine Urobilinogen Add Ur Microanalysis Leukocyte Esterase Rfl Urine RBC Urine WBC Ur Squamous Epith Cells Urine Bacteria Urine Casts Quality VTE Prophylaxis VTE prophylaxis: mechanical ordered Hospitalist MIPS Advance Care Plan I have confirmed that the patient's Advanced Care Plan is present, code status is documented, or surrogate decision maker is listed in patient medical record.: Yes Medication Reconciliation I have utilized all available resources to obtain, update and review the patients current medications (includes all prescriptions, OTC, herbals, cannabis, and nutritional supplements).: Yes
[2025-09-20] VITALS (10 sets, daily range): BP systolic 100–110; BP diastolic 59–67; PULSE 77–110; RESP 18; TEMP 36.6–37.3; O2SAT 92–96
[2025-09-20] MEDS: CENTRAL LINE FLUSH 10 ML IV PUSH ×3 (05:45→21:26)
[2025-09-20 05:54] LABS: Hematocrit 32.1 % (42.0-52.0); Hemoglobin 9.7 g/dL (14.0-18.0); Immature Granulocyte Percent A 1.6 % (0-0.5); Lymphocytes Absolute Auto 1.97 K/mm3 (0.9-3.2); Mean Corpuscular HGB Conc 30.2 g/dl (32-36); Mean Corpuscular Hemoglobin 28.5 pg (26-34); Mean Corpuscular Volume 94.4 fl (80-100); Nucleated Red Blood Cells Absolute Auto 0.000 K/mm3 (0.0-0.012); Nucleated Red Blood Cells Perc 0.0 % (0.0-0.2); Platelet Count Result 325 k/mm3 (150-375); Red Blood Count 3.40 M/mm3 (4.6-6.20); White Blood Count 14.0 K/mm3 (4.5-10.0)
[2025-09-20 06:36] LABS: Alanine Aminotransferase 21 U/L (6-50); Albumin Level 2.7 g/dL (3.5-5.1); Alkaline Phosphatase 70 U/L (38-126); Anion Gap 3 mmol/L (4-12); Aspartate Amino Transferase 23 U/L (17-59); Bilirubin,Total 0.4 mg/dL (0.2-1.3); Blood Urea Nitrogen 21 mg/dL (9-20); Calcium 8.2 mg/dL (8.4-10.2); Carbon Dioxide 30 mmol/L (22-30); Chloride 101 mmol/L (98-107); Estimated CRCL calculation 135 ml/min; Estimated Glomerular Filt Rate > 60; Glucose 131 mg/dL (65-110); Potassium 4.3 mmol/L (3.4-5.0); Sodium 134 mmol/L (137-145); Total Protein 5.4 g/dL (6.3-8.2)
--- NOTE | 2025-09-20 07:55 | PM.IMPN ---
Progress Note: A&P Assessment and Plan (1) Septic shock: Code(s): A41.9 - Sepsis, unspecified organism; R65.21 - Severe sepsis with septic shock Status: Acute Assessment and Plan: Sepsis secondary to UTI. Now resolved. Urine culture and blood cultures positive for Proteus mirabilis. Multidrug resistant. Cefepime changed to ceftriaxone, completed 7 days. Repeat blood cultures pending. wbc remains elevated 14, afebrile, repeat urine culture pending AM labs ordered (2) Pulmonary embolism: Code(s): I26.99 - Other pulmonary embolism without acute cor pulmonale Status: Acute Assessment and Plan: CTA confirmed PE. In light of significant hematuria and drop in hemoglobin is anticoagulation was started but then held. Hematology consulted. IVC filter not advise as patient did not have evidence of DVT. On 09/13/2025 CBI has been off and urine without any further hematuria. Was restarted on anticoagulation with heparin GTT on 09/13. transitioned to oral Eliquis 10 mg BID x 7 days followed by 5 mg BID on 09/15 Eliquis placed on hold 09/18 due to gross hematuria monitor for signs or symptoms of bleeding patient denies dyspnea, on 2l oxygen which is his baseline (3) CHELSEA (acute kidney injury): Code(s): N17.9 - Acute kidney failure, unspecified Status: Resolved Assessment and Plan: Secondary to sepsis hypotension and hypovolemia Renal function improved with IV fluids Creatinine now normalized Monitor urine output electrolytes and creatinine (4) Acute hemorrhagic cystitis: Code(s): N30.01 - Acute cystitis with hematuria Status: Acute Assessment and Plan: Associated with UTI. CBI has been off, will restart heparin 09/13 and assess for any further hematuria. Patient refused for the catheter to be downsized. Continue to appreciate Urology recommendations. Patient with red colored urine again 09/18, no clots at this time, Placed Eliquis on hold, ordered UA with reflex to culture follow up urine culture results, still pending AM labs (5) COPD (chronic obstructive pulmonary disease): Qualifiers: COPD type: unspecified COPD Qualified Code(s): J44.9 - Chronic obstructive pulmonary disease, unspecified Code(s): J44.9 - Chronic obstructive pulmonary disease, unspecified Status: Chronic Assessment and Plan: Bronchodilators p.r.n., breathing comfortably (6) Hypokalemia: Code(s): E87.6 - Hypokalemia Status: Acute Assessment and Plan: Resolved status post replacement. Continue daily BMP and magnesium checks. Currently on TPN. AM labs (7) Failure to thrive in adult: Code(s): R62.7 - Adult failure to thrive Status: Acute Assessment and Plan: Patient has been NPO since transfer from ICU. Per patient's daughter Odalys, he has been having significant issues with swallowing in the time just prior to admission. Could be due to significant weakness secondary to sepsis/septic shock with or without element of MS the patient has history of. Patient has refused PEG tube. TPN has started. TPN rate increased on 09/12/2025, transferrin was low. Continue to monitor electrolytes, transferrin. Monitor for refeeding syndrome. Continue telemetry. Spoke with speech therapy, will try a barium swallow again and monitor progress. An unusual option is for the patient to be on long-term TPN however that does not come without risk. At any rate, I am told by care coordinators the local nursing facilities do not allow TPN. Therefore, patient will either need to improve and be able to eat, have a PEG tube, or have hospice consulted. Patient did MBS on 09/14 and started on pureed diet with thickened liquids per nursing patient not eating but a few bites, continue to monitor intake Patient still with poor PO intake, discussed PEG tube placement vs hospice consult with POA, she wants consult for PEG tube placement with tube feedings. GI consult placed. (8) Positive result for methicillin resistant Staphylococcus aureus (MRSA) screening: Code(s): Z22.322 - Carrier or suspected carrier of Methicillin resistant Staphylococcus aureus Status: Acute Assessment and Plan: Contact isolation precautions (9) Pressure ulcers of skin of multiple topographic sites: Code(s): L89.90 - Pressure ulcer of unspecified site, unspecified stage Status: Acute Assessment and Plan: Pressure ulcers on sacrum, left hip, bilateral heels, bilateral ankles. Wound care is on board IV morphine prior to dressing changes due to severe pain. We discussed the risks versus benefits. It has been helping greatly. we will attempt to change this to something oral as patient will not be able to get IV medications at the senior living (10) Hypernatremia: Code(s): E87.0 - Hyperosmolality and hypernatremia Status: Acute Assessment and Plan: Hypernatremia improving with TPN. Continue to monitor. (11) Multiple sclerosis: Code(s): G35 - Multiple sclerosis Status: Chronic Assessment and Plan: Seen by Neurology this admission. Patient's mental status waxes and wanes. Continue to monitor. (12) Leukocytosis: Code(s): D72.829 - Elevated white blood cell count, unspecified Status: Acute Assessment and Plan: Patient's wbc count on admission was 36.5 and improved to 14.7 on 09/10 patient s/p 7 days IV cefepime/ceftriaxone for treatment of UTI and bacteremia wbc still elevated 14, urine culture is pending patient is afebrile, VS are stable AM labs Subjective Date/time seen: 09/20/25 07:55 Interval history: Patient seen for follow up visit. Patient denies acute pain. Patient still with poor PO intake. Called POA to discuss plan and POA would like GI consulted for PEG tube placement. POA updated on need to hold anticoagulation again due to gross hematuria. POA would like patient to have PEG tube placed and be started on tube feeds in addition to a diet with plans to discharge back to his senior living when he is medically stable. Review of Systems Review of Systems: All systems reviewed & are unremarkable except as noted in HPI and below ROS unobtainable: Yes unobtainable due to medical condition and unobtainable due to mental status Exam Const: General: comfortable and no acute distress Eyes: General: appearance normal, both eyes and all related structures Neck: Other: L IJ in place Resp: Effort & Inspection: normal respiratory effort Auscultation: clear to auscultation bilaterally Cardio: Rate: regular rate Rhythm: regular rhythm GI: GI Palp: Yes Soft to palpation and No Tenderness to palpation present (GI) Urinary Catheter: Urinary Catheter: patent and draining and urine cloudy Skin: General skin exam: normal color Other: Sacral, left hip, bilateral heels, bilateral ankle pressure ulcers Neuro: Other: Moves all 4 extremities freely Extrem: General: no edema Objective Data Vital Signs Vital Signs: Vital Signs - 24 hr 09/19/25 08:00 09/19/25 08:15 09/19/25 12:00 Temperature Pulse Rate 84 88 103 H Respiratory Rate 18 Blood Pressure Pulse Oximetry 96 Oxygen Delivery Nasal Cannula Oxygen Flow Rate 2 Fraction of Inspired Oxygen 32 09/19/25 14:00 09/19/25 16:00 09/19/25 20:00 Temperature 97.8 F Pulse Rate 107 H 114 H 111 H Respiratory Rate 17 Blood Pressure 121/54 L Pulse Oximetry 96 Oxygen Delivery Oxygen Flow Rate Fraction of Inspired Oxygen 09/19/25 21:08 09/20/25 00:00 09/20/25 05:11 Temperature 98.6 F 98 F Pulse Rate 111 H 103 H 77 Respiratory Rate 18 18 Blood Pressure 120/99 H 109/67 Pulse Oximetry 96 92 Oxygen Delivery Oxygen Flow Rate Fraction of Inspired Oxygen Intake/Output Intake/Output: Intake & Output 09/17/25 09/18/25 09/19/25 09/20/25 23:59 23:59 23:59 23:59 Intake Total 1357 2358.5 2455 450 Output Total 1515 2225 1730 750 Balance -158 133.5 725 -300 Meds/Results Medications: Active Medications Generic Name Dose Route Start Last Admin Trade Name Freq PRN Reason Stop Dose Admin Acetaminophen 650 mg 09/06/25 18:10 Acetaminophen 650 Mg Suppository RECTAL Q6H PRN Mild Pain (1-3) or Fever Albuterol/Ipratropium 3 ml 09/06/25 18:09 Ipratropium 0.5 Mg/Albuterol Sulfate 2.5 Mg (Base) Ampul.Neb 3 Ml INHALATION Q6HRT PRN copd Alteplase, Recombinant 2 mg 09/14/25 20:43 09/15/25 05:20 Alteplase 2 Mg Vial (Cathflo) IV PUSH 2 mg ONCE PRN Administration Line Occlusion Apixaban 10 mg 09/15/25 21:00 09/17/25 20:50 Apixaban 5 Mg Tablet PO 09/22/25 20:59 10 mg On Hold: 09/18/25 08:10 Q12HR MICAH Administration Apixaban 5 mg 09/22/25 21:00 Apixaban 5 Mg Tablet PO Q12HR MICAH Dextrose 12.5 gm 09/06/25 18:09 Dextrose 50% 25 Gm/50 Ml Syringe IV PUSH PRN PRN Hypoglycemia Protocol Glucagon 1 mg 09/06/25 18:09 Glucagon For Inj 1 Mg Vial IM PRN PRN Hypoglycemia Protocol Glucose 15 gm 09/06/25 18:09 Glucose Oral Gel 15 Gm Of Glucse In 37.5 Gm Tube PO PRN PRN Hypoglycemia Protocol Dextrose 1,000 mls @ 100 mls/hr 09/06/25 18:09 Dextrose 5% 1,000 Ml IVPB PRN PRN Hypoglycemia Protocol Dextrose 1,000 mls @ 50 mls/hr 09/09/25 13:59 Dextrose 10% IV CONT .Q20H PRN if PN is interrupted Multivitamins 1.25 ml/ 1,002.5 mls @ 60 mls/hr 09/09/25 15:00 09/19/25 14:24 Multivitamins 1.25 ml/ Amino IV CONT 60 mls/hr Acids/Electrolytes/Dextrose .[id number] MICAH Administration Protocol Fat Emulsion Intravenous 250 mls @ 20.833 mls/hr 09/09/25 15:00 09/20/25 02:26 Lipids 20% IVPB Infused Q24H MICAH Infusion Insulin Human Regular 0 units 09/09/25 18:00 09/20/25 00:00 Insulin Human Regular (*Bkc) 100 Units/Ml SUB-Q Not Given Q6HR MICAH Protocol Miscellaneous Information 1 each 09/20/25 00:01 Please Renew Clinimix_. Per [employer] Procedure, It Will Discontinue If Not Renewed XX 10/20/25 00:00 CLARIFY MICAH Morphine Sulfate 1 mg 09/13/25 14:17 09/18/25 17:47 Morphine Sulfate (*Crx) 4 Mg/Ml Inj IV PUSH 1 mg PRN PRN Administration prior to wound dressing changes Sodium Chloride 10 ml 09/07/25 14:00 09/20/25 05:45 Central Line Flush IV PUSH 10 ml Q8HR MICAH Administration Sodium Chloride 20 ml 09/07/25 10:44 09/17/25 05:28 Central Line Flush IV PUSH 20 ml PRN PRN Administration after blood draws Sodium Hypochlorite 1 applic 09/07/25 14:00 09/19/25 14:26 Sod Hypochlorite 1/4 Strength 473 Ml TOPICAL 1 applic DAILY MICAH Administration Radiology Results: ITS Impressions Chest X-Ray 09/06/25 12:50 Impression: No acute cardiopulmonary abnormality. Chest/Abdomen/Pelvis CTA 09/06/25 14:07 IMPRESSION: 1. Filling defect right upper and middle lobe segmental and subsegmental pulmonary artery consistent with pulmonary embolism, small thrombus burden. 2: Interval development of extensive mural thickening and enhancement within the bladder wall, consistent with cystitis. No evidence for bladder fistula. Mondragon catheter present. 3: Extensive subcutaneous edema with small volume of ascites, consistent with anasarca. Dr. Tariq Rivero discussed with Dr. Hector Pritchard MD at 09/06/2025 14:17 [employer]. Renal Ultrasound 09/06/25 21:28 IMPRESSION: There is a Mondragon catheter within the bladder. Left renal cyst measures 2 cm. Venous Doppler Study 09/07/25 14:37 Impression: Negative for DVT. Modified Barium Swallow 09/14/25 12:59 IMPRESSION: Aspiration with thin barium. See also speech therapist notes for complete evaluation. Labs Labs: Laboratory Results - last 24 hr 09/19/25 09/19/25 09/20/25 12:12 23:38 05:44 WBC 14.0 H RBC 3.40 L Hgb 9.7 L Hct 32.1 L MCV 94.4 MCH 28.5 MCHC 30.2 L RDW 17.2 H Plt Count 325 MPV 11.6 H Immature Gran % (Auto) 1.6 H Neut % (Auto) 72.4 Lymph % (Auto) 14.1 L [place] % (Auto) 9.9 H Eos % (Auto) 1.6 Baso % (Auto) 0.4 Lymph # (Auto) 1.97 [place] # (Auto) 1.4 H Eos # (Auto) 0.2 Baso # (Auto) 0.1 Abs Immat Gran (auto) 0.22 H Absolute Neuts (auto) 10.2 H Absolute Nucleated RBC 0.000 Nucleated RBC % 0.0 Sodium 134 L Potassium 4.3 Chloride 101 Carbon Dioxide 30 Anion Gap 3 L BUN 21 H Creatinine 0.47 L Estim Creat Clear Calc 135 Estimated GFR > 60 Glucose 131 H POC Capillary Glucose 113 H 151 H Calcium 8.2 L Total Bilirubin 0.4 AST 23 ALT 21 Alkaline Phosphatase 70 Total Protein 5.4 L Albumin 2.7 L Quality VTE Prophylaxis VTE prophylaxis: mechanical ordered Hospitalist MIPS Advance Care Plan I have confirmed that the patient's Advanced Care Plan is present, code status is documented, or surrogate decision maker is listed in patient medical record.: Yes Medication Reconciliation I have utilized all available resources to obtain, update and review the patients current medications (includes all prescriptions, OTC, herbals, cannabis, and nutritional supplements).: Yes
--- NOTE | 2025-09-20 10:08 | PCNFU ---
Nutrition Follow-Up Complete: Severe Protein Calorie Malnutrition as related to inadequate protein energy intake with increased protein-energy needs in setting of chronic disease as evidenced by minimal oral intake for > 1-2 months; significant weight loss of 27 ibs (17%) in 1 month; severe subcutaneous fat loss (orbital fat pads) and severe muscle wasting (temporalis, clavicle). Meet estimated nutritional needs - Goal is being met with TPN. Continue with goal Goal: Pt current nutrition is Regular diet, puree, mildly thick L2 liquids. Eric BID for wounds (90 kcal, 2.5 g protein), Ensure Plus HP BID (350 kcal, 20 g protein each). Nutrition recommendation: Goal of care conversation with family as patient has been on TPN for 14 days. PO intake is not adequate for increased needs from wounds. Last recorded weight is 88.05 kg. - Likely an error. Previous weight was 58 kg. Bowel Motility: +1 BM 09/19 Labs Reviewed: Hgb 9.7, Hct 32.1, Alb 2.7, Na 134, BUN 21, Cre 0.47, Glu 131 Meds Noted: Insulin, eliquis Skin: Multiple pressure injuries as noted Additional Notes: Discussed with RN, provider will discuss goals of care with family today. TPN Clinmix E 03/17 @ 60 ml/h provides 1522 kcal, 72 g protein, 1690 ml total volume. Eating 0-25% meals on puree diet. Will monitor weight, labs, skin, diet orders, meds every 3 days.
[2025-09-20] MEDS: AMINO ACIDS 5%/D15W/E-LYTES/CA 1,000 ML with MULTIVITAMINS-12 INJ VIAL 1 1.25 ML, MULTI... 60 ML IV CONT (10:15)
[2025-09-20] MEDS: SOD HYPOCHLORITE 1/4 STRENGTH 473 ML 1 APPLIC TOPICAL (10:16)
[2025-09-20 14:17] LABS: Triglycerides 74 mg/dL (<150)
[2025-09-20] MEDS: FAT EMULSIONS IV 20% 250 ML 20.83 ML IVPB (16:39)
--- NOTE | 2025-09-20 17:58 | WPDGICN ---
Assessment and Plan Assessment and plan (1) Oropharyngeal dysphagia: Code(s): R13.12 - Dysphagia, oropharyngeal phase Status: Acute Assessment and Plan: Patient with inability to swallow, of unclear etiology, probably secondary to frailty and severe acute disease and prolonged hospitalization itself. There is a good indication for PEG placement which will be performed tomorrow. GI Consult Note Consult date/time: 09/20/25 17:58 Reason for consult: Peg placement HPI: Bashir Gruber Sr. is a 69 year old male admitted on 09/06/2025. His hospital course has been complicated by urosepsis and pulmonary embolus. Initially started on heparin and subsequently transition to Eliquis but it was held due to hematuria. He is currently being evaluated by Urology. The patient is frail and on 09/14/2025 underwent a modified barium swallow showing aspiration of barium. Initially the patient and his family refused PEG placement and he is currently on TPN. However, the family is now requesting a PEG placement. Review of Systems Review of Systems: All systems reviewed & are unremarkable except as noted in HPI and below PMFSH Past Medical History Medical History Metabolic encephalopathy Secondary to infected decubitus ulcer, August 2025 Tobacco use COPD (chronic obstructive pulmonary disease) Multiple sclerosis BMI 22.0-22.9, adult Surgical History Surgical History History of hip surgery Right hip pinning June 2024 at [facility] Hx of tonsillectomy Family History Family History Father Liver cancer Mother No problems noted. Sibling No problems noted. Social History Social History Smoking packs per day: 1.5 Smoking cigarettes per day: 30.0 Years smoked: 50 Smoking pack-years: 75.00 Smoking status: Unknown if ever smoked Second hand tobacco smoke exposure: Yes Alcohol intake: never Substance use: never Substance use type: unknown Do You Feel Safe in your Home?: Yes Lack of Transportation: No Lack of Food: Never True Current Housing: I Have Housing Concerned About Future Housing: No Difficulty Paying Gas/Electric Bills: No Difficulty Paying for Meds: No Currently Unemployed: No Education: High School Diploma/GED Difficulty w/ Childcare or Family Care: No Living arrangements: alone Occupation/Education: retired Additional occupation/education comments: [employer], formerly [employer] Gender identity (if verbalized by the patient): Male Spiritual care concerns: No Meds Home Medications and Allergies Home Medications ?Medication ?Instructions ?Recorded ?Confirmed ?Type budesonide 160 mcg-glycopyr 9 2 inh inhalation BID #10.7 grams 02/17/25 09/06/25 Rx mcg-formot 4.8 mcg/actuation HFA inhaler (Breztri Aerosphere) ascorbic acid (vitamin C) 500 mg 500 mg PO DAILY Wounds 07/27/25 09/06/25 History capsule,extended release clobetasol 0.05 % topical cream 1 applic topical BID rash 07/27/25 09/06/25 History collagenase clostridium histo. 250 1 applic topical DAILY 07/27/25 09/06/25 History unit/gram topical ointment (Santyl) geriatric multivitamin-min 1 cap PO DAILY Wounds 07/27/25 09/06/25 History ipratropium 0.5 mg-albuterol 3 mg 3 ml inhalation Q6H PRN copd 07/27/25 09/06/25 History (2.5 mg base)/3 mL nebulization soln montelukast 10 mg tablet 10 mg PO HS 07/27/25 09/06/25 History (Singulair) oxycodone 5 mg tablet 5 mg PO Q6H PRN pain 07/27/25 09/06/25 History rivaroxaban 10 mg tablet (Xarelto) 10 mg PO DAILY 07/27/25 09/06/25 History bisacodyl 10 mg rectal suppository 10 mg RECTAL QAM PRN Constipation 08/11/25 09/06/25 Rx #12 ea sennosides 8.6 mg-docusate sodium 1 tab-cap PO HS #30 tabs 08/11/25 09/06/25 Rx 50 mg tablet (Senokot-S) interferon beta-1a 30 mcg/0.5 mL 30 mcg IM WEEKLY 09/06/25 09/06/25 History intramuscular pen injector (Avonex) magnesium citrate (Citroma oral 296 ml PO DAILY PRN constipation 09/06/25 09/06/25 History solution) magnesium hydroxide 400 mg/5 mL 30 ml PO DAILY PRN constipation 09/06/25 09/06/25 History oral suspension (Milk of Magnesia) sodium phosphates 19 gram-7 118 ml RECTAL DAILY PRN 09/06/25 09/06/25 History gram/118 mL enema (Fleet Enema) constipation Allergies Allergy/AdvReac Type Severity Reaction Status Date / Time No Known Allergies Allergy Verified 09/10/25 07:58 Vital Signs Vital Signs - 24 hr 09/19/25 20:00 09/19/25 21:08 09/20/25 00:00 Temperature 98.6 F Pulse Rate 111 H 111 H 103 H Respiratory Rate 18 Blood Pressure 120/99 H Pulse Oximetry 96 Oxygen Delivery Oxygen Flow Rate Fraction of Inspired Oxygen 09/20/25 05:11 09/20/25 08:00 09/20/25 08:50 Temperature 98 F Pulse Rate 77 90 77 Respiratory Rate 18 18 Blood Pressure 109/67 Pulse Oximetry 92 92 Oxygen Delivery Nasal Cannula Oxygen Flow Rate 2 Fraction of Inspired Oxygen 32 09/20/25 12:00 09/20/25 16:00 Temperature Pulse Rate 106 H 110 H Respiratory Rate Blood Pressure Pulse Oximetry Oxygen Delivery Oxygen Flow Rate Fraction of Inspired Oxygen Exam Narrative: Partially alert, complaining of generalized discomfort. Evaluated during diaper and bed change. Abdominal exam: Soft, nontender, no scars, no hepatosplenomegaly, no tender areas. Results Labs 09/20/25 05:44 09/20/25 05:44 Labs: Short CBC 09/20/25 Range/Units 05:44 WBC 14.0 H (4.5-10.0) K/mm3 Hgb 9.7 L (14.0-18.0) g/dL Hct 32.1 L (42.0-52.0) % Plt Count 325 (150-375) k/mm3 BMP 09/20/25 05:44 Sodium 134 L Potassium 4.3 Chloride 101 Carbon Dioxide 30 BUN 21 H Creatinine 0.47 L Glucose 131 H Calcium 8.2 L Liver Function 09/20/25 Range/Units 05:44 Total Bilirubin 0.4 (0.2-1.3) mg/dL AST 23 (17-59) U/L ALT 21 (6-50) U/L Alkaline Phosphatase 70 (38-126) U/L Albumin 2.7 L (3.5-5.1) g/dL
[2025-09-21] VITALS (12 sets, daily range): BP systolic 94–116; BP diastolic 44–68; PULSE 86–100; RESP 16–27; TEMP 36.6–37.2; O2SAT 95–100; BMI 27.1
[2025-09-21] MEDS: AMINO ACIDS 5%/D15W/E-LYTES/CA 1,000 ML with MULTIVITAMINS-12 INJ VIAL 1 1.25 ML, MULTI... 60 ML IV CONT ×2 (03:15→21:17)
[2025-09-21] MEDS: CENTRAL LINE FLUSH 20 ML IV PUSH (05:03)
[2025-09-21] MEDS: CENTRAL LINE FLUSH 10 ML IV PUSH ×3 (05:03→21:18)
[2025-09-21 05:19] LABS: Hematocrit 29.0 % (42.0-52.0); Hemoglobin 8.8 g/dL (14.0-18.0); Immature Granulocyte Percent A 1.3 % (0-0.5); Lymphocytes Absolute Auto 2.69 K/mm3 (0.9-3.2); Mean Corpuscular HGB Conc 30.3 g/dl (32-36); Mean Corpuscular Hemoglobin 28.8 pg (26-34); Mean Corpuscular Volume 94.8 fl (80-100); Nucleated Red Blood Cells Absolute Auto 0.000 K/mm3 (0.0-0.012); Nucleated Red Blood Cells Perc 0.0 % (0.0-0.2); Platelet Count Result 323 k/mm3 (150-375); Red Blood Count 3.06 M/mm3 (4.6-6.20); White Blood Count 13.5 K/mm3 (4.5-10.0)
[2025-09-21 05:43] LABS: Alanine Aminotransferase 20 U/L (6-50); Albumin Level 2.5 g/dL (3.5-5.1); Alkaline Phosphatase 67 U/L (38-126); Anion Gap 1 mmol/L (4-12); Aspartate Amino Transferase 25 U/L (17-59); Bilirubin,Total 0.4 mg/dL (0.2-1.3); Blood Urea Nitrogen 21 mg/dL (9-20); Calcium 7.7 mg/dL (8.4-10.2); Carbon Dioxide 31 mmol/L (22-30); Chloride 101 mmol/L (98-107); Estimated CRCL calculation 140 ml/min; Estimated Glomerular Filt Rate > 60; Glucose 131 mg/dL (65-110); Potassium 4.2 mmol/L (3.4-5.0); Sodium 133 mmol/L (137-145); Total Protein 5.3 g/dL (6.3-8.2)
--- NOTE | 2025-09-21 08:30 | PC.NURSE ---
Telephone consent received from Odalys Calvo, daughter/POA, for PEG tube insertion. Witnessed by WICHO Nicole. GI Lab notified per telephone of consent received.
[2025-09-21] MEDS: MORPHINE SULFATE (*CRX) 4 MG/ML INJ 1 MG IV PUSH (09:59)
[2025-09-21] MEDS: SOD HYPOCHLORITE 1/4 STRENGTH 473 ML 1 APPLIC TOPICAL (09:59)
[2025-09-21] MEDS: LACTATED RINGERS 1,000 ML 150 ML IV CONT (12:16)
--- NOTE | 2025-09-21 14:06 | PC.NURSE ---
To GI lab per brenda.
--- NOTE | 2025-09-21 14:07 | PC.NURSE ---
Bed zeroed for accurate weight.
[2025-09-21] MEDS: ceFAZolin 1 GM in SODIUM CHLORIDE 0.9% IV 50 ML 100 ML IVPB (14:20)
--- NOTE | 2025-09-21 15:03 | P.PNIM_ITS ---
Progress Note: A&P Assessment and Plan (1) Pulmonary embolism: Code(s): I26.99 - Other pulmonary embolism without acute cor pulmonale Status: Acute Assessment and Plan: CTA confirmed PE. In light of significant hematuria and drop in hemoglobin is anticoagulation was started but then held. Hematology consulted. IVC filter not advise as patient did not have evidence of DVT. On 09/13/2025 CBI has been off and urine without any further hematuria. * Was restarted on anticoagulation with heparin GTT on 09/13. transitioned to oral Eliquis 10 mg BID x 7 days followed by 5 mg BID on 09/15 * Eliquis placed on hold 09/18 due to gross hematuria * monitor for signs or symptoms of bleeding * trend H&H * Continue supplemental oxygen * Will need to resume Eliquis once hematuria stabilized (2) Acute hemorrhagic cystitis: Code(s): N30.01 - Acute cystitis with hematuria Status: Acute Assessment and Plan: Associated with UTI. CBI has been off, heparin started on 09/13 D/C and transition to Eliquis however remains on hold * Patient refused for the catheter to be downsized. Continue to appreciate Urology recommendations. * Urology following * holding Eliquis * completed ABX therapy * Monitor H&H * once hematuria resolved will resume eliquis (3) COPD (chronic obstructive pulmonary disease): Qualifiers: COPD type: unspecified COPD Qualified Code(s): J44.9 - Chronic obstructive pulmonary disease, unspecified Code(s): J44.9 - Chronic obstructive pulmonary disease, unspecified Status: Chronic Assessment and Plan: If not appear in exacerbation * Bronchodilators p.r.n. * Wean Oxygen as tolerated (4) Failure to thrive in adult: Code(s): R62.7 - Adult failure to thrive Status: Acute Assessment and Plan: Patient was NPO since transfer from ICU. Per patient's daughter Odalys, he has been having significant issues with swallowing in the time just prior to admission. Could be due to significant weakness secondary to sepsis/septic shock with or without element of MS the patient has history of. per previous providers notes and discussion with family. per nursing patient not eating but a few bites, continue to monitor intake. Patient still with poor PO intake, it was discussed PEG tube placement vs hospice consult with POA, POA requesting PEG tube placement with tube feedings. * GI consult placed. * Patient did MBS on 09/14 and started on pureed diet with thickened liquids still with minimal intake * PEG tube placement 09/21/2025 * Dietary following to assist in tube feedings * Discontinue TPN (5) Positive result for methicillin resistant Staphylococcus aureus (MRSA) screening: Code(s): Z22.322 - Carrier or suspected carrier of Methicillin resistant Staphylococcus aureus Status: Acute Assessment and Plan: * Contact isolation precautions (6) Pressure ulcers of skin of multiple topographic sites: Code(s): L89.90 - Pressure ulcer of unspecified site, unspecified stage Status: Acute Assessment and Plan: Pressure ulcers on sacrum, left hip, bilateral heels, bilateral ankles. Wound care is on board * Wound consulted and following * Pain management with PO Cordova/IV morphine for breakthrough pain or with dressing changes * offload with Q2hr Turns * high protein tube feeds for wound healing (7) Multiple sclerosis: Code(s): G35 - Multiple sclerosis Status: Chronic Assessment and Plan: Seen by Neurology this admission. Patient's mental status waxes and wanes. Continue to monitor. (8) Oropharyngeal dysphagia: Code(s): R13.12 - Dysphagia, oropharyngeal phase Status: Acute Assessment and Plan: Patient with worsening dysphagia failed MBS likely secondary to progressing MS * ST following * GI consulted * PEG tube placement 09/21/2025 * Dietitian following for recommended tube feedings (9) Anemia: Code(s): D64.9 - Anemia, unspecified Status: Acute Assessment and Plan: Patient with anemia likely secondary to hematuria as well as iron deficiency due to patient's poor nutritional intake. * Trend H&H * holding eliquis * Peg tube being placed for nutrition * Transfuse if hgb <7.0 (10) Septic shock: Code(s): A41.9 - Sepsis, unspecified organism; R65.21 - Severe sepsis with septic shock Status: Resolved Assessment and Plan: RESOLVED Sepsis secondary to UTI. Now resolved. Urine culture and blood cultures positive for Proteus mirabilis. Multidrug res istant. Cefepime changed to ceftriaxone, completed 7 days. Repeat blood cultures pending. wbc remains elevated 14, afebrile, repeat urine culture pending AM labs ordered (11) CHELSEA (acute kidney injury): Code(s): N17.9 - Acute kidney failure, unspecified Status: Resolved Assessment and Plan: Secondary to sepsis hypotension and hypovolemia Renal function improved with IV fluids Creatinine now normalized Monitor urine output electrolytes and creatinine Plan Code status: Full code per patient DVT prophylaxis: Eliquis on hold/SCD Stress ulcer prophylaxis: Protonix 40 daily PT/OT notes: Bedbound/SNF Disposition: Patient continues admission with plans for PEG tube placement today plan to return to residential facility when goal rate has met. Time Spent With Patient Time with patient: 15 - 25 minutes Subjective Date/time seen: 09/21/25 15:03 Interval history: Patient is a 69-year-old male with MS, COPD, immobility and bedbound, decubitus ulceration who was admitted for septic shock secondary to UTI, PE. 09/21/2025: Patient seen in bed reporting overall not feeling well, A&O x2 did report mild ABD pain otherwise otherwise denied any CP, SOB or further complaints. Patient is quiet, withdrawn with minimal eye contact scheduled for a peg tube placement. Review of Systems Review of Systems: All systems reviewed & are unremarkable except as noted in HPI and below ROS unobtainable: Yes unobtainable due to medical condition and unobtainable due to mental status Exam Const: General: comfortable and no acute distress Other: Pt laying in bed, chronically ill male HENMT: Face/Nose/Sinus: Normal nares present Mouth: Yes dry mucous membranes Eyes: General: appearance normal, both eyes and all related structures Sclera: sclerae normal Pupils: Equal, round and reactive pupils present EOM: EOMs intact bilaterally Neck: Neck: supple and no JVD Resp: Effort & Inspection: normal respiratory effort Auscultation: clear to auscultation bilaterally Cardio: Rate: regular rate Rhythm: regular rhythm Other: No murmur or rub appreciated GI: Inspection: non-distended GI Palp: Yes Tenderness to palpation present (GI) (mild) Auscultation: normal bowel sounds Other: Abdomen soft, non distended, Normoactive bowel sounds in all quadrants. Urinary Catheter: Urinary Catheter: patent and draining and urine cloudy Skin: General skin exam: normal color Other: Sacral, left hip, bilateral heels, bilateral ankle pressure ulcers Neuro: Cranial nerves: Yes Equal, round and reactive pupils present Other: He does not follow commands, but he moves all his 4 extremities, mumbled speech will answer some questions Extrem: General: no edema Psych: Speech and movement: No Normal speech and movement present Affect: Sad affect present Other: Poor insight and judgment at present, restless, withdrawn Objective Data Vital Signs Vital Signs: Vital Signs - 24 hr 09/20/25 16:00 09/20/25 20:00 09/20/25 20:00 Temperature Pulse Rate 110 H 106 H 105 H Respiratory Rate 18 Blood Pressure Pulse Oximetry 94 Oxygen Delivery Nasal Cannula Oxygen Flow Rate 3 Fraction of Inspired Oxygen 32 09/20/25 20:06 09/20/25 21:51 09/21/25 00:00 Temperature 98.7 F Pulse Rate 106 H 95 Respiratory Rate 18 Blood Pressure 110/66 Pulse Oximetry 94 94 Oxygen Delivery Nasal Cannula Oxygen Flow Rate 3 Fraction of Inspired Oxygen 09/21/25 04:00 09/21/25 04:31 09/21/25 08:00 Temperature 97.9 F Pulse Rate 86 90 Respiratory Rate 16 Blood Pressure 105/52 L Pulse Oximetry 96 96 Oxygen Delivery Nasal Cannula Oxygen Flow Rate 3 Fraction of Inspired Oxygen 09/21/25 08:00 09/21/25 12:00 09/21/25 14:00 Temperature 98.2 F Pulse Rate 97 92 98 Respiratory Rate 16 Blood Pressure 94/44 L Pulse Oximetry 95 Oxygen Delivery Oxygen Flow Rate Fraction of Inspired Oxygen 09/21/25 14:15 Temperature 99.0 F Pulse Rate 100 Respiratory Rate 18 Blood Pressure 105/68 Pulse Oximetry 99 Oxygen Delivery Nasal Cannula Oxygen Flow Rate 2 Fraction of Inspired Oxygen Intake/Output Intake/Output: Intake & Output 09/18/25 09/19/25 09/20/25 09/21/25 23:59 23:59 23:59 23:59 Intake Total 2358.5 2455 1452.5 1252.5 Output Total 2225 1730 1500 550 Balance 133.5 725 -47.5 702.5 Meds/Results Medications: Active Medications Generic Name Dose Route Start Last Admin Trade Name Freq PRN Reason Stop Dose Admin Acetaminophen 650 mg 09/06/25 18:10 Acetaminophen 650 Mg Suppository RECTAL Q6H PRN Mild Pain (1-3) or Fever Albuterol/Ipratropium 3 ml 09/06/25 18:09 Ipratropium 0.5 Mg/Albuterol Sulfate 2.5 Mg (Base) Ampul.Neb 3 Ml INHALATION Q6HRT PRN copd Alteplase, Recombinant 2 mg 09/14/25 20:43 09/15/25 05:20 Alteplase 2 Mg Vial (Cathflo) IV PUSH 2 mg ONCE PRN Administration Line Occlusion Apixaban 10 mg 09/15/25 21:00 09/17/25 20:50 Apixaban 5 Mg Tablet PO 09/22/25 20:59 10 mg On Hold: 09/18/25 08:10 Q12HR MICAH Administration Apixaban 5 mg 09/22/25 21:00 Apixaban 5 Mg Tablet PO Q12HR MICAH Dextrose 12.5 gm 09/06/25 18:09 Dextrose 50% 25 Gm/50 Ml Syringe IV PUSH PRN PRN Hypoglycemia Protocol Glucagon 1 mg 09/06/25 18:09 Glucagon For Inj 1 Mg Vial IM PRN PRN Hypoglycemia Protocol Glucose 15 gm 09/06/25 18:09 Glucose Oral Gel 15 Gm Of Glucse In 37.5 Gm Tube PO PRN PRN Hypoglycemia Protocol Dextrose 1,000 mls @ 100 mls/hr 09/06/25 18:09 Dextrose 5% 1,000 Ml IVPB PRN PRN Hypoglycemia Protocol Dextrose 1,000 mls @ 50 mls/hr 09/09/25 13:59 Dextrose 10% IV CONT .Q20H PRN if PN is interrupted Multivitamins 1.25 ml/ 1,002.5 mls @ 60 mls/hr 09/09/25 15:00 09/21/25 03:15 Multivitamins 1.25 ml/ Amino IV CONT 60 mls/hr Acids/Electrolytes/Dextrose .[id number] MICAH Administration Protocol Fat Emulsion Intravenous 250 mls @ 20.833 mls/hr 09/09/25 15:00 09/21/25 04:40 Lipids 20% IVPB Infused Q24H MICAH Infusion Lactated Ringer's 1,000 mls @ 150 mls/hr 09/21/25 11:50 09/21/25 12:16 Lr - Lactated Ringers Iv IV CONT 150 mls/hr .Q6H40M MICAH Administration Lactated Ringer's 1,000 mls @ 150 mls/hr 09/21/25 14:35 Lr - Lactated Ringers Iv IV CONT .Q6H40M MICAH Insulin Human Regular 0 units 09/09/25 18:00 09/21/25 12:09 Insulin Human Regular (*Bkc) 100 Units/Ml SUB-Q Not Given Q6HR MICAH Protocol Miscellaneous Information 1 each 09/20/25 00:01 Please Renew Clinimix_. Per [employer] Procedure, It Will Discontinue If Not Renewed XX 10/20/25 00:00 CLARIFY MICAH Morphine Sulfate 1 mg 09/13/25 14:17 09/21/25 09:59 Morphine Sulfate (*Crx) 4 Mg/Ml Inj IV PUSH 1 mg PRN PRN Administration prior to wound dressing changes Sodium Chloride 10 ml 09/07/25 14:00 09/21/25 05:03 Central Line Flush IV PUSH 10 ml Q8HR MICAH Administration Sodium Chloride 20 ml 09/07/25 10:44 09/21/25 05:03 Central Line Flush IV PUSH 20 ml PRN PRN Administration after blood draws Sodium Hypochlorite 1 applic 09/07/25 14:00 09/21/25 09:59 Sod Hypochlorite 1/4 Strength 473 Ml TOPICAL 1 applic DAILY MICAH Administration Radiology Results: ITS Impressions Chest X-Ray 09/06/25 12:50 Impression: No acute cardiopulmonary abnormality. Chest/Abdomen/Pelvis CTA 09/06/25 14:07 IMPRESSION: 1. Filling defect right upper and middle lobe segmental and subsegmental pu lmonary artery consistent with pulmonary embolism, small thrombus burden. 2: Interval development of extensive mural thickening and enhancement within the bladder wall, consistent with cystitis. No evidence for bladder fistula. Mondragon catheter present. 3: Extensive subcutaneous edema with small volume of ascites, consistent with anasarca. Dr. Tariq Rivero discussed with Dr. 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 Renal Ultrasound 09/06/25 21:28 IMPRESSION: There is a Mondragon catheter within the bladder. Left renal cyst measures 2 cm. Venous Doppler Study 09/07/25 14:37 Impression: Negative for DVT. Modified Barium Swallow 09/14/25 12:59 IMPRESSION: Aspiration with thin barium. See also speech therapist notes for complete evaluation. Labs Labs: Laboratory Results - last 24 hr 09/20/25 09/20/25 09/21/25 16:39 23:56 05:02 WBC 13.5 H RBC 3.06 L Hgb 8.8 L Hct 29.0 L MCV 94.8 MCH 28.8 MCHC 30.3 L RDW 16.9 H Plt Count 323 MPV 11.3 H Immature Gran % (Auto) 1.3 H Neut % (Auto) 65.7 Lymph % (Auto) 20.0 Kimble % (Auto) 10.6 H Eos % (Auto) 1.9 Baso % (Auto) 0.5 Lymph # (Auto) 2.69 Kimble # (Auto) 1.4 H Eos # (Auto) 0.3 Baso # (Auto) 0.1 Abs Immat Gran (auto) 0.17 H Absolute Neuts (auto) 8.9 H Absolute Nucleated RBC 0.000 Nucleated RBC % 0.0 Sodium 133 L Potassium 4.2 Chloride 101 Carbon Dioxide 31 H Anion Gap 1 L BUN 21 H Creatinine 0.45 L Estim Creat Clear Calc 140 Estimated GFR > 60 Glucose 131 H POC Capillary Glucose 148 H 141 H Calcium 7.7 L Total Bilirubin 0.4 AST 25 ALT 20 Alkaline Phosphatase 67 Total Protein 5.3 L Albumin 2.5 L 09/21/25 09/21/25 11:50 14:18 WBC RBC Hgb Hct MCV MCH MCHC RDW Plt Count MPV Immature Gran % (Auto) Neut % (Auto) Lymph % (Auto) Kimble % (Auto) Eos % (Auto) Baso % (Auto) Lymph # (Auto) Kimble # (Auto) Eos # (Auto) Baso # (Auto) Abs Immat Gran (auto) Absolute Neuts (auto) Absolute Nucleated RBC Nucleated RBC % Sodium Potassium Chloride Carbon Dioxide Anion Gap BUN Creatinine Estim Creat Clear Calc Estimated GFR Glucose POC Capillary Glucose 121 H 111 H Calcium Total Bilirubin AST ALT Alkaline Phosphatase Total Protein Albumin Quality VTE Prophylaxis VTE prophylaxis: mechanical ordered -Patient's previous records reviewed on admission -ER notes reviewed in detail on admission -discussed all findings and current treatment plan with patient/Family/POA -Consultations reviewed for recommendations -Patient's disposition for safe discharge discussed with rn case management -radiology imaging, EKG and test results I have personally reviewed and interpreted unless otherwise specified Dictation performed by [employer] direct speech recognition software, therefore mental hygienist variants and typographical errors may occur. Hospitalist MIPS Advance Care Plan I have confirmed that the patient's Advanced Care Plan is present, code status is documented, or surrogate decision maker is listed in patient medical record.: Yes Medication Reconciliation I have utilized all available resources to obtain, update and review the patients current medications (includes all prescriptions, OTC, herbals, cannabis, and nutritional supplements).: Yes The patient is not eligible for med reconciliation; the patient is in a emergent medical situation where delaying treatment would jeopardize the patients health.: No
--- NOTE | 2025-09-21 15:12 | P.PNAN_ITS ---
Anes - Initial Pre Proc Eval Procedure: Operation Date: 09/21/25 15:00 Proposed Procedures p Percutaneous Endoscopic Gastrostomy - Jose Antonio De Leon MD Date/Time: 09/21/25 15:12 Surgeon: Baltazar cortes Oca, MD Pre Op Diagnosis: hemorrhagic systitis,pe Patient Data Age: 69 Gender: M Height: 1.8 m Weight: 88.05 kg Last Vital Signs Temp 99.0 F 09/21/25 14:15 Pulse 100 09/21/25 14:15 Resp 18 09/21/25 14:15 BP 105/68 09/21/25 14:15 Pulse Ox 99 09/21/25 14:15 O2 Del Method Nasal Cannula 09/21/25 14:15 O2 Flow Rate 2 09/21/25 14:15 FiO2 32 09/20/25 20:00 Allergies Allergy/AdvReac Type Severity Reaction Status Date / Time No Known Allergies Allergy Verified 09/21/25 14:24 Home Medications ?Medication ?Instructions ?Recorded ?Confirmed ?Type budesonide 160 mcg-glycopyr 9 2 inh inhalation BID #10 .7 grams 02/17/25 09/06/25 Rx mcg-formot 4.8 mcg/actuation HFA inhaler (Breztri Aerosphere) ascorbic acid (vitamin C) 500 mg 500 mg PO DAILY Wound s 07/27/25 09/06/25 History capsule,extended release clobetasol 0.05 % topical cream 1 applic topical BID r toney 07/27/25 09/06/25 History collagenase clostridium histo. 250 1 applic topical DA LETICIA 07/27/25 09/06/25 History unit/gram topical ointment (Santyl) geriatric multivitamin-min 1 cap PO DAILY Wounds 07/2709/06/25 History ipratropium 0.5 mg-albuterol 3 mg 3 ml inhalation Q6H PRN copd 07/27/25 09/06/25 History (2.5 mg base)/3 mL nebulization soln montelukast 10 mg tablet 10 mg PO HS 07/27/25 5 History (Singulair) oxycodone 5 mg tablet 5 mg PO Q6H PRN pain 5 09/06/25 History rivaroxaban 10 mg tablet (Xarelto) 10 mg PO DAILY 07/0509/06/25 History bisacodyl 10 mg rectal suppository 10 mg RECTAL QAM VT N Constipation 08/11/25 09/06/25 Rx #12 ea sennosides 8.6 mg-docusate sodium 1 tab-cap PO HS #30 tabs 08/11/25 09/06/25 Rx 50 mg tablet (Senokot-S) interferon beta-1a 30 mcg/0.5 mL 30 mcg IM WEEKLY 02/2509/06/25 History intramuscular pen injector (Avonex) magnesium citrate (Citroma oral 296 ml PO DAILY PRN co nstipation 09/06/25 09/06/25 History solution) magnesium hydroxide 400 mg/5 mL 30 ml PO DAILY PRN con stipation 09/06/25 09/06/25 History oral suspension (Milk of Magnesia) sodium phosphates 19 gram-7 118 ml RECTAL DAILY PRN 09/06/25 History gram/118 mL enema (Fleet Enema) constipation Laboratory Tests 09/20/25 09/20/25 09/21/25 16:39 23:56 05:02 WBC 13.5 H K/mm3 (4.5-10.0) RBC 3.06 L M/mm3 (4.6-6.20) Hgb 8.8 L g/dL (14.0-18.0) Hct 29.0 L % (42.0-52.0) MCV 94.8 fl (80-100) MCH 28.8 pg (26-34) MCHC 30.3 L g/dl (32-36) RDW 16.9 H % (11.5-14.5) Plt Count 323 k/mm3 (150-375) MPV 11.3 H fl (7.4-10.4) Immature Gran % (Auto) 1.3 H % (0-0.5) Neut % (Auto) 65.7 % (45.5-73.1) Lymph % (Auto) 20.0 % (18.3-44.2) Calhoun % (Auto) 10.6 H % (2.6-8.5) Eos % (Auto) 1.9 % (0-4.4) Baso % (Auto) 0.5 % (0.2-1.2) Lymph # (Auto) 2.69 K/mm3 (0.9-3.2) Calhoun # (Auto) 1.4 H K/mm3 (0.1-0.6) Eos # (Auto) 0.3 K/mm3 (0-0.3) Baso # (Auto) 0.1 K/mm3 (0.0-0.1) Abs Immat Gran (auto) 0.17 H K/mm3 (0.00-0.031) Absolute Neuts (auto) 8.9 H K/mm3 (1.3-6.7) Absolute Nucleated RBC 0.000 K/mm3 (0.0-0.012) Nucleated RBC % 0.0 % (0.0-0.2) Sodium 133 L mmol/L (137-145) Potassium 4.2 mmol/L (3.4-5.0) Chloride 101 mmol/L (98-107) Carbon Dioxide 31 H mmol/L (22-30) Anion Gap 1 L mmol/L (4-12) BUN 21 H mg/dL (9-20) Creatinine 0.45 L mg/dL (0.7-1.3) Estim Creat Clear Calc 140 ml/min Estimated GFR > 60 (59 - ) Glucose 131 H mg/dL (65-110) POC Capillary Glucose 148 H mg/dl 141 H mg/dl (65-105) (65-105) Calcium 7.7 L mg/dL (8.4-10.2) Total Bilirubin 0.4 mg/dL (0.2-1.3) AST 25 U/L (17-59) ALT 20 U/L (6-50) Alkaline Phosphatase 67 U/L (38-126) Total Protein 5.3 L g/dL (6.3-8.2) Albumin 2.5 L g/dL (3.5-5.1) 09/21/25 09/21/25 11:50 14:18 WBC RBC Hgb Hct MCV MCH MCHC RDW Plt Count MPV Immature Gran % (Auto) Neut % (Auto) Lymph % (Auto) [place]oun % (Auto) Eos % (Auto) Baso % (Auto) Lymph # (Auto) [place]oun # (Auto) Eos # (Auto) Baso # (Auto) Abs Immat Gran (auto) Absolute Neuts (auto) Absolute Nucleated RBC Nucleated RBC % Sodium Potassium Chloride Carbon Dioxide Anion Gap BUN Creatinine Estim Creat Clear Calc Estimated GFR Glucose POC Capillary Glucose 121 H mg/dl 111 H mg/dl (65-105) (65-105) Calcium Total Bilirubin AST ALT Alkaline Phosphatase Total Protein Albumin Patient hx anesthesia problems: none Family hx anesthesia problems: none Results Review: All pre-operative results and documents have been reviewed as part of the pre- operative evaluation. [facility] Past Medical History Medical History Metabolic encephalopathy Secondary to infected decubitus ulcer, August 2025 Tobacco use COPD (chronic obstructive pulmonary disease) Multiple sclerosis BMI 22.0-22.9, adult Surgical History Surgical History History of hip surgery Right hip pinning June 2024 at [facility] Hx of tonsillectomy Family History Family History Father Liver cancer Mother No problems noted. Sibling No problems noted. Social History Social History Smoking packs per day: 1.5 Smoking cigarettes per day: 30.0 Years smoked: 50 Smoking pack-years: 75.00 Smoking status: Unknown if ever smoked Second hand tobacco smoke exposure: Yes Alcohol intake: never Substance use: never Substance use type: unknown Do You Feel Safe in your Home?: Yes Lack of Transportation: No Lack of Food: Never True Current Housing: I Have Housing Concerned About Future Housing: No Difficulty Paying Gas/Electric Bills: No Difficulty Paying for Meds: No Currently Unemployed: No Education: High School Diploma/GED Difficulty w/ Childcare or Family Care: No Living arrangements: alone Occupation/Education: retired Additional occupation/education comments: [employer] Gender identity (if verbalized by the patient): Male Spiritual care concerns: No Anes - Eval Final PreProcedure Day of Procedure 09/21/25 15:12 Patient weight: normal Lungs: normal air movement Airway: Mallampati scale Neurological: lethargic Last oral intake: >/= 8 hours ASA classification: IV Emergent: no Anesthetic plan: proceed Anesthesia type and monitoring: general GIVS and standard monitoring Results Review: All pre-operative results and documents have been reviewed as part of the pre- operative evaluation. Chronically ill pt, ECHO w nml LVEF, no . Now for PEG. Informed Consent: The patient's anesthetic plan and its attendant risks and benefits were discussed with the patient/family/POA. Questions were solicited and answers provided to the satisfaction of the patient/family/POA.
--- NOTE | 2025-09-21 16:03 | SUR.OPER ---
Lidocaine 1% injected to abdomen PEG tube site 4 ml injected lot [id number] EXP 08/2026
--- NOTE | 2025-09-21 16:03 | WPDGIPROGNO ---
Progress Note: A&P Assessment and Plan (1) S/P percutaneous endoscopic gastrostomy (PEG) tube placement: Code(s): Z93.1 - Gastrostomy status Status: Acute Assessment and Plan: See EGD/PEG report. The tube can be used now for feeding and medication purposes. Will sign of for now, please let us know if there are any other issues related to our specialty. Subjective Date/time seen: 09/21/25 16:03 Objective Data Vital Signs Vital Signs: Vital Signs - 24 hr 09/20/25 20:00 09/20/25 20:00 09/20/25 20:06 Temperature 98.7 F Pulse Rate 106 H 105 H 106 H Respiratory Rate 18 18 Blood Pressure 110/66 Pulse Oximetry 94 94 Oxygen Delivery Nasal Cannula Oxygen Flow Rate 3 Fraction of Inspired Oxygen 32 09/20/25 21:51 09/21/25 00:00 09/21/25 04:00 Temperature Pulse Rate 95 86 Respiratory Rate Blood Pressure Pulse Oximetry 94 Oxygen Delivery Nasal Cannula Oxygen Flow Rate 3 Fraction of Inspired Oxygen 09/21/25 04:31 09/21/25 08:00 09/21/25 08:00 Temperature 97.9 F Pulse Rate 90 97 Respiratory Rate 16 Blood Pressure 105/52 L Pulse Oximetry 96 96 Oxygen Delivery Nasal Cannula Oxygen Flow Rate 3 Fraction of Inspired Oxygen 09/21/25 12:00 09/21/25 14:00 09/21/25 14:15 Temperature 98.2 F 99.0 F Pulse Rate 92 98 100 Respiratory Rate 16 18 Blood Pressure 94/44 L 105/68 Pulse Oximetry 95 99 Oxygen Delivery Nasal Cannula Oxygen Flow Rate 2 Fraction of Inspired Oxygen Intake/Output Intake/Output: Intake & Output 09/18/25 09/19/25 09/20/25 09/21/25 23:59 23:59 23:59 23:59 Intake Total 2358.5 2455 1452.5 1790.0 Output Total 2225 1730 1500 550 Balance 133.5 725 -47.5 1240.0 Meds/Results Medications: Active Medications Generic Name Dose Route Start Last Admin Trade Name Freq PRN Reason Stop Dose Admin Acetaminophen 650 mg 09/06/25 18:10 Acetaminophen 650 Mg Suppository RECTAL Q6H PRN Mild Pain (1-3) or Fever Hydrocodone Bitart/Acetaminophen 1 tab 09/21/25 15:24 Hydrocodone/Acetaminophen (*Crx) 5-325 Mg Tablet PO Q4H PRN Pain Rated 4-6 Albuterol/Ipratropium 3 ml 09/06/25 18:09 Ipratropium 0.5 Mg/Albuterol Sulfate 2.5 Mg (Base) Ampul.Neb 3 Ml INHALATION Q6HRT PRN copd Alteplase, Recombinant 2 mg 09/14/25 20:43 09/15/25 05:20 Alteplase 2 Mg Vial (Cathflo) IV PUSH 2 mg ONCE PRN Administration Line Occlusion Apixaban 10 mg 09/15/25 21:00 09/17/25 20:50 Apixaban 5 Mg Tablet PO 09/22/25 20:59 10 mg On Hold: 09/18/25 08:10 Q12HR MICAH Administration Apixaban 5 mg 09/22/25 21:00 Apixaban 5 Mg Tablet PO Q12HR MICAH Dextrose 12.5 gm 09/06/25 18:09 Dextrose 50% 25 Gm/50 Ml Syringe IV PUSH PRN PRN Hypoglycemia Protocol Glucagon 1 mg 09/06/25 18:09 Glucagon For Inj 1 Mg Vial IM PRN PRN Hypoglycemia Protocol Glucose 15 gm 09/06/25 18:09 Glucose Oral Gel 15 Gm Of Glucse In 37.5 Gm Tube PO PRN PRN Hypoglycemia Protocol Dextrose 1,000 mls @ 100 mls/hr 09/06/25 18:09 Dextrose 5% 1,000 Ml IVPB PRN PRN Hypoglycemia Protocol Dextrose 1,000 mls @ 50 mls/hr 09/09/25 13:59 Dextrose 10% IV CONT .Q20H PRN if PN is interrupted Multivitamins 1.25 ml/ 1,002.5 mls @ 60 mls/hr 09/09/25 15:00 09/21/25 03:15 Multivitamins 1.25 ml/ Amino IV CONT 60 mls/hr Acids/Electrolytes/Dextrose .[id number] MICAH Administration Protocol Fat Emulsion Intravenous 250 mls @ 20.833 mls/hr 09/09/25 15:00 09/21/25 04:40 Lipids 20% IVPB Infused Q24H MICAH Infusion Lactated Ringer's 1,000 mls @ 150 mls/hr 09/21/25 11:50 09/21/25 15:51 Lr - Lactated Ringers Iv IV CONT 150 mls/hr .Q6H40M MICAH Infusion Lactated Ringer's 1,000 mls @ 150 mls/hr 09/21/25 14:35 Lr - Lactated Ringers Iv IV CONT .Q6H40M MICAH Insulin Human Regular 0 units 09/09/25 18:00 09/21/25 12:09 Insulin Human Regular (*Bkc) 100 Units/Ml SUB-Q Not Given Q6HR [facility] Protocol Morphine Sulfate 2 mg 09/21/25 15:25 Morphine Sulfate (*Crx) 4 Mg/Ml Inj IV PUSH Q8HR PRN Pain Rated 7-10 Pantoprazole Sodium 40 mg 09/22/25 09:00 Pantoprazole Sodium Iv 40 Mg Vial IV PUSH QAM MICAH Sodium Chloride 10 ml 09/07/25 14:00 09/21/25 05:03 Central Line Flush IV PUSH 10 ml Q8HR MICAH Administration Sodium Chloride 20 ml 09/07/25 10:44 09/21/25 05:03 Central Line Flush IV PUSH 20 ml PRN PRN Administration after blood draws Sodium Hypochlorite 1 applic 09/07/25 14:00 09/21/25 09:59 Sod Hypochlorite 1/4 Strength 473 Ml TOPICAL 1 applic DAILY MICAH Administration Radiology Results: ITS Impressions Chest X-Ray 09/06/25 12:50 Impression: No acute cardiopulmonary abnormality. Chest/Abdomen/Pelvis CTA 09/06/25 14:07 IMPRESSION: 1. Filling defect right upper and middle lobe segmental and subsegmental pulmonary artery consistent with pulmonary embolism, small thrombus burden. 2: Interval development of extensive mural thickening and enhancement within the bladder wall, consistent with cystitis. No evidence for bladder fistula. Mondragon catheter present. 3: Extensive subcutaneous edema with small volume of ascites, consistent with anasarca. Dr. Tariq Rivero discussed with Dr. 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 Renal Ultrasound 09/06/25 21:28 IMPRESSION: There is a Mondragon catheter within the bladder. Left renal cyst measures 2 cm. Venous Doppler Study 09/07/25 14:37 Impression: Negative for DVT. Modified Barium Swallow 09/14/25 12:59 IMPRESSION: Aspiration with thin barium. See also speech therapist notes for complete evaluation. Labs Labs: Laboratory Results - last 24 hr 09/20/25 09/20/25 09/21/25 16:39 23:56 05:02 WBC 13.5 H RBC 3.06 L Hgb 8.8 L Hct 29.0 L MCV 94.8 MCH 28.8 MCHC 30.3 L RDW 16.9 H Plt Count 323 MPV 11.3 H Immature Gran % (Auto) 1.3 H Neut % (Auto) 65.7 Lymph % (Auto) 20.0 [place] % (Auto) 10.6 H Eos % (Auto) 1.9 Baso % (Auto) 0.5 Lymph # (Auto) 2.69 [place] # (Auto) 1.4 H Eos # (Auto) 0.3 Baso # (Auto) 0.1 Abs Immat Gran (auto) 0.17 H Absolute Neuts (auto) 8.9 H Absolute Nucleated RBC 0.000 Nucleated RBC % 0.0 Sodium 133 L Potassium 4.2 Chloride 101 Carbon Dioxide 31 H Anion Gap 1 L BUN 21 H Creatinine 0.45 L Estim Creat Clear Calc 140 Estimated GFR > 60 Glucose 131 H POC Capillary Glucose 148 H 141 H Calcium 7.7 L Total Bilirubin 0.4 AST 25 ALT 20 Alkaline Phosphatase 67 Total Protein 5.3 L Albumin 2.5 L 09/21/25 09/21/25 11:50 14:18 WBC RBC Hgb Hct MCV MCH MCHC RDW Plt Count MPV Immature Gran % (Auto) Neut % (Auto) Lymph % (Auto) [place] % (Auto) Eos % (Auto) Baso % (Auto) Lymph # (Auto) [place] # (Auto) Eos # (Auto) Baso # (Auto) Abs Immat Gran (auto) Absolute Neuts (auto) Absolute Nucleated RBC Nucleated RBC % Sodium Potassium Chloride Carbon Dioxide Anion Gap BUN Creatinine Estim Creat Clear Calc Estimated GFR Glucose POC Capillary Glucose 121 H 111 H Calcium Total Bilirubin AST ALT Alkaline Phosphatase Total Protein Albumin
--- NOTE | 2025-09-21 16:30 | PC.NURSE ---
Returned to room per stretcher from GI Lab.
[2025-09-21] MEDS: FAT EMULSIONS IV 20% 250 ML 20.83 ML IVPB (16:35)
[2025-09-22] VITALS (10 sets, daily range): BP systolic 101–106; BP diastolic 43–63; PULSE 81–100; RESP 15–16; TEMP 36.6–37.2; O2SAT 95–100
[2025-09-22] MEDS: CENTRAL LINE FLUSH 10 ML IV PUSH ×3 (05:46→22:04)
[2025-09-22] MEDS: CENTRAL LINE FLUSH 20 ML IV PUSH (05:47)
[2025-09-22 06:12] LABS: Hematocrit 27.6 % (42.0-52.0); Hemoglobin 8.4 g/dL (14.0-18.0); Immature Granulocyte Percent A 0.9 % (0-0.5); Lymphocytes Absolute Auto 2.02 K/mm3 (0.9-3.2); Mean Corpuscular HGB Conc 30.4 g/dl (32-36); Mean Corpuscular Hemoglobin 28.8 pg (26-34); Mean Corpuscular Volume 94.5 fl (80-100); Nucleated Red Blood Cells Absolute Auto 0.000 K/mm3 (0.0-0.012); Nucleated Red Blood Cells Perc 0.0 % (0.0-0.2); Platelet Count Result 299 k/mm3 (150-375); Red Blood Count 2.92 M/mm3 (4.6-6.20); White Blood Count 12.9 K/mm3 (4.5-10.0)
[2025-09-22 06:24] LABS: Alanine Aminotransferase 19 U/L (6-50); Albumin Level 2.5 g/dL (3.5-5.1); Alkaline Phosphatase 70 U/L (38-126); Anion Gap 3 mmol/L (4-12); Aspartate Amino Transferase 23 U/L (17-59); Bilirubin,Total 0.3 mg/dL (0.2-1.3); Blood Urea Nitrogen 18 mg/dL (9-20); Calcium 7.8 mg/dL (8.4-10.2); Carbon Dioxide 30 mmol/L (22-30); Chloride 101 mmol/L (98-107); Estimated CRCL calculation 137 ml/min; Estimated Glomerular Filt Rate > 60; Glucose 123 mg/dL (65-110); Magnesium 2.0 mg/dL (1.6-2.3); Potassium 3.9 mmol/L (3.4-5.0); Sodium 134 mmol/L (137-145); Total Protein 5.4 g/dL (6.3-8.2)
[2025-09-22] MEDS: PANTOPRAZOLE SODIUM IV 40 MG VIAL IV PUSH (08:24)
[2025-09-22] MEDS: SOD HYPOCHLORITE 1/4 STRENGTH 473 ML 1 APPLIC TOPICAL (08:26)
--- NOTE | 2025-09-22 09:11 | P.PNIM_ITS ---
Progress Note: A&P Assessment and Plan (1) Pulmonary embolism: Code(s): I26.99 - Other pulmonary embolism without acute cor pulmonale Status: Acute Assessment and Plan: CTA confirmed PE. In light of significant hematuria and drop in hemoglobin is anticoagulation was started but then held. Hematology consulted. IVC filter not advise as patient did not have evidence of DVT. On 09/13/2025 CBI has been off and urine without any further hematuria. * Was restarted on anticoagulation with heparin GTT on 09/13. transitioned to oral Eliquis 10 mg BID x 7 days followed by 5 mg BID on 09/15 * Eliquis placed on hold 09/18 due to gross hematuria * monitor for signs or symptoms of bleeding * trend H&H * Continue supplemental oxygen * resuming Eliquis 09/22/2025 monitor for return of hematuria and H&H Will rest art with loading dose 10mg BID x7 days (2) Acute hemorrhagic cystitis: Code(s): N30.01 - Acute cystitis with hematuria Status: Acute Assessment and Plan: Associated with UTI. CBI has been off, heparin started on 09/13 D/C and transition to Eliquis however remains on hold * Patient refused for the catheter to be downsized. Continue to appreciate Urology recommendations. * Urology following * resume eliquis 09/22/2025 * completed ABX therapy * Monitor H&H (3) COPD (chronic obstructive pulmonary disease): Qualifiers: COPD type: unspecified COPD Qualified Code(s): J44.9 - Chronic obstructive pulmonary disease, unspecified Code(s): J44.9 - Chronic obstructive pulmonary disease, unspecified Status: Chronic Assessment and Plan: If not appear in exacerbation * Bronchodilators p.r.n. * Wean Oxygen as tolerated (4) Failure to thrive in adult: Code(s): R62.7 - Adult failure to thrive Status: Acute Assessment and Plan: Patient was NPO since transfer from ICU. Per patient's daughter Odalys, he has been having significant issues with swallowing in the time just prior to admission. Could be due to significant weakness secondary to sepsis/septic shock with or without element of MS the patient has history of. per previous providers notes and discussion with family. per nursing patient not eating but a few bites, continue to monitor intake. Patient still with poor PO intake, it was discussed PEG tube placement vs hospice consult with POA, POA requesting PEG tube placement with tube feedings. * GI consult placed. * Patient did MBS on 09/14 and started on pureed diet with thickened liquids still with minimal intake * PEG tube placement 09/21/2025 * Dietary following to assist in tube feedings * Discontinue TPN * Tolerating Tube feedings * Accuchecks Q6HR with low dose SSI (5) Positive result for methicillin resistant Staphylococcus aureus (MRSA) screening: Code(s): Z22.322 - Carrier or suspected carrier of Methicillin resistant Staphylococcus aureus Status: Acute Assessment and Plan: * Contact isolation precautions (6) Pressure ulcers of skin of multiple topographic sites: Code(s): L89.90 - Pressure ulcer of unspecified site, unspecified stage Status: Acute Assessment and Plan: Pressure ulcers on sacrum, left hip, bilateral heels, bilateral ankles. Wound care is on board * Wound consulted and following * Pain management with PO [place]/IV morphine for breakthrough pain or with dressing changes * offload with Q2hr Turns * high protein tube feeds for wound healing (7) Multiple sclerosis: Code(s): G35 - Multiple sclerosis Status: Chronic Assessment and Plan: Seen by Neurology this admission. Patient's mental status waxes and wanes. Continue to monitor. (8) Oropharyngeal dysphagia: Code(s): R13.12 - Dysphagia, oropharyngeal phase Status: Acute Assessment and Plan: Patient with worsening dysphagia failed MBS likely secondary to progressing MS * ST following * GI signed off post peg tube placement * PEG tube placement 09/21/2025 * Dietitian following for recommended tube feedings * Tolerating Tube feedings monitor for aspiration risks * Accuchecks Q6HR with low dose SSI (9) Anemia: Code(s): D64.9 - Anemia, unspecified Status: Acute Assessment and Plan: Patient with anemia likely secondary to hematuria as well as iron deficiency due to patient's poor nutritional intake. * Trend H&H * resuming awajuli 09/22/2025 * Peg tube being placed for nutrition * Transfuse if hgb <7.0 (10) Septic shock: Code(s): A41.9 - Sepsis, unspecified organism; R65.21 - Severe sepsis with septic shock Status: Resolved Assessment and Plan: RESOLVED Sepsis secondary to UTI. Now resolved. Urine culture and blood cultures positive for Proteus mirabilis. Multidrug resistant. Cefepime changed to ceftriaxone, completed 7 days. Repeat blood cultures pending. wbc remains elevated 14, afebrile, repeat urine culture pending AM labs ordered (11) [place] (acute kidney injury): Code(s): N17.9 - Acute kidney failure, unspecified Status: Resolved Assessment and Plan: RESOLVED Secondary to sepsis hypotension and hypovolemia Renal function improved with IV fluids Creatinine now normalized Monitor urine output electrolytes and creatinine Plan Code status: Full code per patient DVT prophylaxis: Eliquis on hold/SCD Stress ulcer prophylaxis: Protonix 40 daily PT/OT notes: Bedbound/SNF Disposition: Patient continues admission with plans for PEG tube placement today plan to return to senior living facility when goal rate has met. Resuming Eliquis today will need to monitor for any further hematuria and H&H overnight before discharging. Time Spent With Patient Time with patient: 15 - 25 minutes Subjective Date/time seen: 09/22/25 09:11 Interval history: Patient is a 69-year-old male with MS, COPD, immobility and bedbound, decubitus ulceration who was admitted for septic shock secondary to UTI, PE. 09/22/2025: Patient in good spirits today more alert and conversational. Tolerating the tube feedings. Urine yellow resuming Eliquis monitor for reoccurrence of hematuria. Patient denied CP, SOB, N/V, or abd pain. Miled to moderate pain with wound dressing changes. Review of Systems Review of Systems: All systems reviewed & are unremarkable except as noted in HPI and below ROS unobtainable: Yes unobtainable due to medical condition and unobtainable due to mental status Exam Const: General: comfortable and no acute distress Other: Pt laying in bed, chronically ill male HENMT: Face/Nose/Sinus: Normal nares present Mouth: Yes dry mucous membranes Eyes: General: appearance normal, both eyes and all related structures Sclera: sclerae normal Pupils: Equal, round and reactive pupils present EOM: EOMs intact bilaterally Neck: Neck: supple and no JVD Other: L IJ in place Resp: Effort & Inspection: normal respiratory effort Auscultation: clear to auscultation bilaterally Other: Moderate tachypnea without accessory muscle use, no wheezing or crackles on exam, however exam difficult due to repetitive moaning Cardio: Rate: regular rate and tachycardic Rhythm: regular rhythm Other: No murmur or rub appreciated GI: Inspection: non-distended Auscultation: normal bowel sounds Other: Abdomen soft, non distended, Normoactive bowel sounds in all quadrants. Urinary Catheter: Urinary Catheter: patent and draining and urine cloudy Skin: General skin exam: normal color Other: Sacral, left hip, bilateral heels, bilateral ankle pressure ulcers Neuro: Cranial nerves: Yes Equal, round and reactive pupils present Other: He does not follow commands, but he moves all his 4 extremities, mumbled speech will answer some questions Extrem: General: normal exam except as noted (See skin exam) and no edema Psych: Speech and movement: No Normal speech and movement present Affect: Sad affect present Other: Poor insight and judgment at present, restless, withdrawn Objective Data Vital Signs Vital Signs: Vital Signs - 24 hr 09/21/25 12:00 09/21/25 14:00 09/21/25 14:15 Temperature 98.2 F 99.0 F Pulse Rate 92 98 100 Respiratory Rate 16 18 Blood Pressure 94/44 L 105/68 Pulse Oximetry 95 99 Oxygen Delivery Nasal Cannula Oxygen Flow Rate 2 Fraction of Inspired Oxygen 09/21/25 15:58 09/21/25 16:08 09/21/25 16:18 Temperature Pulse Rate 93 97 98 Respiratory Rate 26 H 20 27 H Blood Pressure 116/55 L 101/57 L 100/53 L Pulse Oximetry 100 100 100 Oxygen Delivery Nasal Cannula Nasal Cannula Nasal Cannula Oxygen Flow Rate 4 4 4 Fraction of Inspired Oxygen 09/21/25 17:29 09/21/25 20:00 09/21/25 20:00 Temperature Pulse Rate 96 96 96 Respiratory Rate 27 H Blood Pressure Pulse Oximetry 100 Oxygen Delivery Nasal Cannula Oxygen Flow Rate 4 Fraction of Inspired Oxygen 32 09/22/25 00:00 09/22/25 04:00 09/22/25 06:23 Temperature 97.8 F Pulse Rate 92 81 88 Respiratory Rate 16 Blood Pressure 101/43 L Pulse Oximetry 96 Oxygen Delivery Oxygen Flow Rate Fraction of Inspired Oxygen Intake/Output Intake/Output: Intake & Output 09/19/25 09/20/25 09/21/25 09/22/25 23:59 23:59 23:59 23:59 Intake Total 2455 1452.5 2792.5 570 Output Total 1730 1500 1250 500 Balance 725 -47.5 1542.5 70 Meds/Results Medications: Active Medications Generic Name Dose Route Start Last Admin Trade Name Freq PRN Reason Stop Dose Admin Acetaminophen 650 mg 09/06/25 18:10 Acetaminophen 650 Mg Suppository RECTAL Q6H PRN Mild Pain (1-3) or Fever Hydrocodone Bitart/Acetaminophen 1 tab 09/21/25 15:24 Hydrocodone/Acetaminophen (*Crx) 5-325 Mg Tablet PO Q4H PRN Pain Rated 4-6 Albuterol/Ipratropium 3 ml 09/06/25 18:09 Ipratropium 0.5 Mg/Albuterol Sulfate 2.5 Mg (Base) Ampul.Neb 3 Ml INHALATION Q6HRT PRN copd Alteplase, Recombinant 2 mg 09/14/25 20:43 09/15/25 05:20 Alteplase 2 Mg Vial (Cathflo) IV PUSH 2 mg ONCE PRN Administration Line Occlusion Apixaban 5 mg 09/22/25 21:00 Apixaban 5 Mg Tablet PO Q12HR MICAH Dextrose 12.5 gm 09/06/25 18:09 Dextrose 50% 25 Gm/50 Ml Syringe IV PUSH PRN PRN Hypoglycemia Protocol Glucagon 1 mg 09/06/25 18:09 Glucagon For Inj 1 Mg Vial IM PRN PRN Hypoglycemia Protocol Glucose 15 gm 09/06/25 18:09 Glucose Oral Gel 15 Gm Of Glucse In 37.5 Gm Tube PO PRN PRN Hypoglycemia Protocol Dextrose 1,000 mls @ 100 mls/hr 09/06/25 18:09 Dextrose 5% 1,000 Ml IVPB PRN PRN Hypoglycemia Protocol Insulin Human Regular 0 units 09/09/25 18:00 09/22/25 06:25 Insulin Human Regular (*Bkc) 100 Units/Ml SUB-Q Not Given Q6HR MICAH Protocol Morphine Sulfate 2 mg 09/21/25 15:25 Morphine Sulfate (*Crx) 4 Mg/Ml Inj IV PUSH Q8HR PRN Pain Rated 7-10 Pantoprazole Sodium 40 mg 09/22/25 09:00 09/22/25 08:24 Pantoprazole Sodium Iv 40 Mg Vial IV PUSH 40 mg QAM MICAH Administration Sodium Chloride 10 ml 09/07/25 14:00 09/22/25 05:46 Central Line Flush IV PUSH 10 ml Q8HR MICAH Administration Sodium Chloride 20 ml 09/07/25 10:44 09/22/25 05:47 Central Line Flush IV PUSH 20 ml PRN PRN Administration after blood draws Sodium Hypochlorite 1 applic 09/07/25 14:00 09/22/25 08:26 Sod Hypochlorite 1/4 Strength 473 Ml TOPICAL 1 applic DAILY MICAH Administration Radiology Results: ITS Impressions Chest X-Ray 09/06/25 12:50 Impression: No acute cardiopulmonary abnormality. Chest/Abdomen/Pelvis CTA 09/06/25 14:07 IMPRESSION: 1. Filling defect right upper and middle lobe segmental and subsegmental pulmonary artery consistent with pulmonary embolism, small thrombus burden. 2: Interval development of extensive mural thickening and enhancement within the bladder wall, consistent with cystitis. No evidence for bladder fistula. Mondragon catheter present. 3: Extensive subcutaneous edema with small volume of ascites, consistent with anasarca. Dr. Tariq Rivero discussed with Dr. 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 Renal Ultrasound 09/06/25 21:28 IMPRESSION: There is a Mondragon catheter within the bladder. Left renal cyst measures 2 cm. Venous Doppler Study 09/07/25 14:37 Impression: Negative for DVT. Modified Barium Swallow 09/14/25 12:59 IMPRESSION: Aspiration with thin barium. See also speech therapist notes for complete evaluation. Labs Labs: Laboratory Results - last 24 hr 09/21/25 09/21/25 09/21/25 11:50 14:18 17:02 WBC RBC Hgb Hct MCV MCH MCHC RDW Plt Count MPV Immature Gran % (Auto) Neut % (Auto) Lymph % (Auto) [place] % (Auto) Eos % (Auto) Baso % (Auto) Lymph # (Auto) [place] # (Auto) Eos # (Auto) Baso # (Auto) Abs Immat Gran (auto) Absolute Neuts (auto) Absolute Nucleated RBC Nucleated RBC % Sodium Potassium Chloride Carbon Dioxide Anion Gap BUN Creatinine Estim Creat Clear Calc Estimated GFR Glucose POC Capillary Glucose 121 H 111 H 121 H Calcium Magnesium Total Bilirubin AST ALT Alkaline Phosphatase Total Protein Albumin 09/22/25 09/22/25 01:00 05:19 WBC 12.9 H RBC 2.92 L Hgb 8.4 L Hct 27.6 L MCV 94.5 MCH 28.8 MCHC 30.4 L RDW 16.8 H Plt Count 299 MPV 11.9 H Immature Gran % (Auto) 0.9 H Neut % (Auto) 70.5 Lymph % (Auto) 15.7 L [place] % (Auto) 10.6 H Eos % (Auto) 1.9 Baso % (Auto) 0.4 Lymph # (Auto) 2.02 [place] # (Auto) 1.4 H Eos # (Auto) 0.2 Baso # (Auto) 0.1 Abs Immat Gran (auto) 0.12 H Absolute Neuts (auto) 9.1 H Absolute Nucleated RBC 0.000 Nucleated RBC % 0.0 Sodium 134 L Potassium 3.9 Chloride 101 Carbon Dioxide 30 Anion Gap 3 L BUN 18 Creatinine 0.46 L Estim Creat Clear Calc 137 Estimated GFR > 60 Glucose 123 H POC Capillary Glucose 128 H Calcium 7.8 L Magnesium 2.0 Total Bilirubin 0.3 AST 23 ALT 19 Alkaline Phosphatase 70 Total Protein 5.4 L Albumin 2.5 L Quality VTE Prophylaxis VTE prophylaxis: mechanical ordered and pharmacologic ordered -Patient's previous records reviewed on admission -ER notes reviewed in detail on admission -discussed all findings and current treatment plan with patient/Family/POA -Consultations reviewed for recommendations -Patient's disposition for safe discharge discussed with case advocate -radiology imaging, EKG and test results I have personally reviewed and interpreted unless otherwise specified Dictation performed by [place] direct speech recognition software, therefore roving marker variants and typographical errors may occur. Hospitalist MIPS Advance Care Plan I have confirmed that the patient's Advanced Care Plan is present, code status is documented, or surrogate decision maker is listed in patient medical record.: Yes Medication Reconciliation I have utilized all available resources to obtain, update and review the patients current medications (includes all prescriptions, OTC, herbals, cannabis, and nutritional supplements).: Yes The patient is not eligible for med reconciliation; the patient is in a emergent medical situation where delaying treatment would jeopardize the patients health.: No
--- NOTE | 2025-09-22 10:26 | PC.NURSE ---
I, [place]ia Kemp RN, have reviewed documentation by Michelle WILSON, and agree with the findings.
[2025-09-22] MEDS: APIXABAN 5 MG TABLET 10 MG PO ×2 (12:27→22:04)
[2025-09-23] VITALS (8 sets, daily range): BP systolic 113–118; BP diastolic 59–60; PULSE 83–95; RESP 16–18; TEMP 37.1; O2SAT 93–100
[2025-09-23 05:34] LABS: Hematocrit 26.5 % (42.0-52.0); Hemoglobin 8.0 g/dL (14.0-18.0); Mean Corpuscular HGB Conc 30.2 g/dl (32-36); Mean Corpuscular Hemoglobin 29.0 pg (26-34); Mean Corpuscular Volume 96.0 fl (80-100); Platelet Count Result 302 k/mm3 (150-375); Red Blood Count 2.76 M/mm3 (4.6-6.20); White Blood Count 11.3 K/mm3 (4.5-10.0)
[2025-09-23 05:58] LABS: Alanine Aminotransferase 18 U/L (6-50); Albumin Level 2.4 g/dL (3.5-5.1); Alkaline Phosphatase 84 U/L (38-126); Anion Gap 2 mmol/L (4-12); Aspartate Amino Transferase 22 U/L (17-59); Bilirubin,Total 0.3 mg/dL (0.2-1.3); Blood Urea Nitrogen 17 mg/dL (9-20); Calcium 7.4 mg/dL (8.4-10.2); Carbon Dioxide 32 mmol/L (22-30); Chloride 100 mmol/L (98-107); Estimated CRCL calculation 118 ml/min; Estimated Glomerular Filt Rate > 60; Glucose 120 mg/dL (65-110); Magnesium 2.1 mg/dL (1.6-2.3); Potassium 4.2 mmol/L (3.4-5.0); Sodium 134 mmol/L (137-145); Total Protein 5.4 g/dL (6.3-8.2)
[2025-09-23] MEDS: CENTRAL LINE FLUSH 10 ML IV PUSH ×2 (06:43→14:59)
[2025-09-23] MEDS: PANTOPRAZOLE SODIUM IV 40 MG VIAL IV PUSH (09:17)
[2025-09-23] MEDS: APIXABAN 5 MG TABLET 10 MG PO (09:17)
[2025-09-23] MEDS: SOD HYPOCHLORITE 1/4 STRENGTH 473 ML 1 APPLIC TOPICAL (09:33)
--- NOTE | 2025-09-23 13:19 | PC.NURSE ---
I, [place]ia Kemp RN, have reviewed documentation by Michelle WILSON and agree with the findings.
--- NOTE | 2025-09-23 13:23 | P.DS_ITS ---
DS: Admitting Diagnosis Discharge Date 09/23/2025 Admitting Diagnosis Sepsis with septic shock secondary to UTI/PE/hematuria DS: Discharge Diagnosis Discharge Diagnosis (1) Pulmonary embolism: Code(s): I26.99 - Other pulmonary embolism without acute cor pulmonale Status: Acute (2) Acute hemorrhagic cystitis: Code(s): N30.01 - Acute cystitis with hematuria Status: Acute (3) COPD (chronic obstructive pulmonary disease): Qualifiers: COPD type: unspecified COPD Qualified Code(s): J44.9 - Chronic obstructive pulmonary disease, unspecified Code(s): J44.9 - Chronic obstructive pulmonary disease, unspecified Status: Chronic (4) Failure to thrive in adult: Code(s): R62.7 - Adult failure to thrive Status: Acute (5) Positive result for methicillin resistant Staphylococcus aureus (MRSA) screening: Code(s): Z22.322 - Carrier or suspected carrier of Methicillin resistant Staphylococcus aureus Status: Acute (6) Pressure ulcers of skin of multiple topographic sites: Code(s): L89.90 - Pressure ulcer of unspecified site, unspecified stage Status: Acute (7) Multiple sclerosis: Code(s): G35 - Multiple sclerosis Status: Chronic (8) Oropharyngeal dysphagia: Code(s): R13.12 - Dysphagia, oropharyngeal phase Status: Acute (9) Anemia: Code(s): D64.9 - Anemia, unspecified Status: Acute (10) Septic shock: Code(s): A41.9 - Sepsis, unspecified organism; R65.21 - Severe sepsis with septic shock Status: Resolved (11) CHELSEA (acute kidney injury): Code(s): N17.9 - Acute kidney failure, unspecified Status: Resolved DS: Summary Hospital Course Reason for hospitalization: Sepsis with septic shock secondary to UTI/metabolic encephalopathy/PE/gross hematuria/UTI/CHELSEA/sacral decubitus ulcer Hospital Course: Admission: 69 y/o M with PMH of multiple sclerosis, COPD, bedbound, and decubitus ulcer presents here with altered mental status. The patient presents here from a local correction on 09/06 for further evaluation of altered mental status. HPI obtained through chart review, EMS report, ED provider report, and family report as the patient is altered. Per EMS, they were not provided with much information about the patient beyond that he was more altered than usual. Per chart review, the patient was recently admitted here from 07/26/2025 to 08/11/2025 for altered mental status, sepsis (UTI and/or decubitus ulcer), decubitus ulcer to the sacrum, left heel, and right lateral foot. He underwent a sharp excisional debridement of his stage IV sacral decubitus ulcer on 07/27/2025. During his stay he had acute respiratory distress which was felt to be secondary to a CHF exacerbation for which he was gently diuresed, echo showed grade 1 diastolic dysfunction with a preserved EF. Patient's altered mental status was contributed to metabolic encephalopathy, may have been exacerbated by a B12/vitamin-D deficiency. Patient also developed a postop ileus for which he was treated with MiraLax and Senokot. Patient was also evaluated by Infectious Disease due to his urine culture growing Nehal orthopsilosis, however the did not feel it with pathogenic at that time. In the ED: Initial VS at presentation: 99.2? F (now 100.4? F), HR 135, RR 26, 89/62, and 96% on RA. ED workup showed: WBC 36.5, initial hemoglobin 11.6 (11.9 on 09/03), normal coags, creatinine 2.31 and GFR 28 (previously 0.5 and GFR >60 on 09/03), lactic 5.3, calcium 7.9 in the setting of an albumin of 3.0, CRP 6.3. Garcia replaced and patient had annette blood, so unable to obtain UA at time of admission. CXR showed no acute cardiopulmonary abnormality. CTA of the chest/abdomen/pelvis showed a filling defect of the right upper and middle lobe segmental and subsegmental pulmonary artery consistent with pulmonary embolism with small thrombus burden, interval development of extensive mural thickening and enhancement within the bladder wall consistent with cystitis with no evidence of bladder fistula and Garcia catheter present, extensive subcutaneous edema with small volume of ascites consistent with anasarca. Hospital Course: Patient was initially admitted to the ICU for treatment of septic shock secondary to complicated UTI. Urine culture and blood cultures positive for Proteus mirabilis. Multidrug resistant. Cefepime changed to ceftriaxone, completed 7 days. Repeat blood cultures with no growth and wbc remainsed elevated 14 but improved Associated with UTI. CBI has been off, heparin started on 09/13 D/C and transition to Eliquis however remains on hold. CTA confirmed PE. In light of significant hematuria and drop in hemoglobin is anticoagulation was started but then held. Hematology consulted. IVC filter not advise as patient did not have evidence of DVT. On 09/13/2025 CBI has been off and urine without any further hematuria. Patient refused for the catheter to be downsiz ed. Continue to appreciate Urology recommendations. Urology followed and resumed eliquis 09/22/2025. resumed Eliquis 09/22/2025 monitor for return of hematuria and H&Hl restarted with loading dose 10mg BID x7 days with no further hematuria and stable H&H. Patient was NPO since transfer from ICU. Per patient's daughter Odalys, he has been having significant issues with swallowing in the time just prior to admission. Could be due to significant weakness secondary to sepsis/septic shock with or without element of MS the patient has history of. per previous providers notes and discussion with family. per nursing patient not eating but a few bites, continue to monitor intake. Patient still with poor PO intake, it was discussed PEG tube placement vs hospice consult with POA, POA requesting PEG tube placement with tube feedings. GI was consulted. Patient did MBS on 09/14 and started on pureed diet with thickened liquids still with minimal intake. A PEG tube was placed 09/21/2025 and patient tolerated tube feedings. Pressure ulcers on sacrum, left hip, bilateral heels, bilateral ankles. Wound care was on board with Pain management with PO [place]/IV morphine for breakthrough pain or with dressing changes continued offload with Q2hr Turns and added high protein tube feeds for wound healing. Patient with CHELSEA POA secondary to sepsis hypotension and hypovolemia renal function improved with IV fluids creatinine now normalized. Patient evaluated day of discharge in no acute distress, labs stabilized and vitals stable. Patient was tolerating tube feedings with no complaints. Barbara ent with overall to symptoms, no further hematuria in indwelling chronic garcia catheter. Patient was discharged back to SNF. Status at Discharge Functional status at discharge: bed bound Overall status at discharge: patient is back to baseline Time Spent with Patient Time attestation: Total time spent providing and/or coordinating discharge services: Time spent: Greater than 30 minutes Exam Const: General: comfortable and no acute distress Other: Pt laying in bed, chronically ill male HENMT: Face/Nose/Sinus: Normal nares present Mouth: Yes dry mucous membranes Eyes: General: appearance normal, both eyes and all related structures Sclera: sclerae normal Pupils: Equal, round and reactive pupils present EOM: EOMs intact bilaterally Neck: Neck: supple and no JVD Other: L IJ in place Resp: Effort & Inspection: normal respiratory effort Auscultation: clear to auscultation bilaterally Other: Moderate tachypnea without accessory muscle use, no wheezing or crackles on exam, however exam difficult due to repetitive moaning Cardio: Rate: regular rate and tachycardic Rhythm: regular rhythm Other: No murmur or rub appreciated GI: Inspection: non-distended Auscultation: normal bowel sounds Other: Abdomen soft, non distended, Normoactive bowel sounds in all quadrants. Peg tub present Urinary Catheter: Urinary Catheter: patent and draining and urine cloudy Skin: General skin exam: normal color Other: Sacral, left hip, bilateral heels, bilateral ankle pressure ulcers Neuro: Cranial nerves: Yes Equal, round and reactive pupils present Other: Alert and oriented able to answer questions Extrem: General: normal exam except as noted (See skin exam) and no edema Psych: Speech and movement: No Normal speech and movement present Affect: Sad affect present Other: Poor insight and judgment at present, restless, withdrawn DS: Data Data Completed and Pending Labs on day of discharge: Labs from last 24 hours 09/23/25 09/23/25 09/23/25 11:34 06:18 05:26 WBC 11.3 H RBC 2.76 L Hgb 8.0 L Hct 26.5 L MCV 96.0 MCH 29.0 MCHC 30.2 L RDW 16.8 H Plt Count 302 MPV 11.0 H Sodium 134 L Potassium 4.2 Chloride 100 Carbon Dioxide 32 H Anion Gap 2 L BUN 17 Creatinine 0.44 L Estim Creat Clear Calc 118 Estimated GFR > 60 Glucose 120 H POC Capillary Glucose 121 H 121 H Calcium 7.4 L Magnesium 2.1 Total Bilirubin 0.3 AST 22 ALT 18 Alkaline Phosphatase 84 Total Protein 5.4 L Albumin 2.4 L 09/23/25 00:07 WBC RBC Hgb Hct MCV MCH MCHC RDW Plt Count MPV Sodium Potassium Chloride Carbon Dioxide Anion Gap BUN Creatinine Estim Creat Clear Calc Estimated GFR Glucose POC Capillary Glucose 132 H Calcium Magnesium Total Bilirubin AST ALT Alkaline Phosphatase Total Protein Albumin Preliminary micro results at discharge 09/07/25 Unknown Urine Culture - Preliminary Urine Catheterized Imaging Radiologist's impression: Radiology Results: ITS Impressions Chest X-Ray 09/06/25 12:50 Impression: No acute cardiopulmonary abnormality. Chest/Abdomen/Pelvis CTA 09/06/25 14:07 IMPRESSION: 1. Filling defect right upper and middle lobe segmental and subsegmental pulmonary artery consistent with pulmonary embolism, small thrombus burden. 2: Interval development of extensive mural thickening and enhancement within the bladder wall, consistent with cystitis. No evidence for bladder fistula. Garcia catheter present. 3: Extensive subcutaneous edema with small volume of ascites, consistent with anasarca. Dr. Tariq Rivero discussed with Dr. Hector Pritchard MD at 09/06/2025 14:17 [employer]PERVISOR [employer]. Renal Ultrasound 09/06/25 21:28 IMPRESSION: There is a Garcia catheter within the bladder. Left renal cyst measures 2 cm. Venous Doppler Study 09/07/25 14:37 Impression: Negative for DVT. Modified Barium Swallow 09/14/25 12:59 IMPRESSION: Aspiration with thin barium. See also speech therapist notes for complete evaluation. Discharge Plan Discharge Attending physician on discharge: Jean Claude Moser Consulting providers: Joseph Snider; Issac Linn; James Perry; Markus Morin Francisco M.; Dulce Maria Faust; Hilda Cancino; Rosanna Granado; Navid Dahl; Ree Monsalve; Patsy Mao; Fern Pastor; Mervat Calix; Naif Nesbitt; Issac Lai; Tariq Rivero; Rafael Fitzgerald; Roger Gramajo Discharging Clinician: Viviana Pablo Anticipated Discharge Date/Time: 09/23/25 13:29 Patient Disposition: SNF Activity: as tolerated Diet: other - see discharge instructions Wound Care Instructions: other - see discharge instructions Discharge Instructions: 1). Diet/Peg tube: * May have puree diet for comfort feeds * Tube feedings with Jevity 1.5 rate off 55 with 150 free water flushes Q4hr * Eric BID to be mixed with flushes * Supplemental Ensure plus HP TID 2). Wound Instructions: * Daily apply foam borders over dry wounds to bilateral feet, left knee, right calf, right hip. * Daily apply a 1/4 strength Dakin's moistened gauze dressing to ulcers on sacrum and left hip. Cover with ABD pads and secure with medipore tape. 3). Pulmonary embolism * I started patient will need to continue with loading dose as prescribed and transition to maintenance dose 5 mg b.i.d. continious * Monitor for hematuria * Patient will need follow-up CBCs to monitor his anemia 4). Chronic indwelling Garcia catheter * Monitor for gross hematuria * Catheter exchanged Q 30 days * Continue with catheter care daily How can you care for yourself at home? ? Keep track of any new symptoms or changes in your symptoms. ? Rest until you feel better. ? Be safe with medicines. Take your medicines exactly as prescribed. Call your doctor if you think you are having a problem with your medicine. ? Do not drive after taking a prescription pain medicine. ? Ensure to follow-up with primary care physician as indicated and provide updated medication list provided to you at discharge. When should you call for help? Call 911 anytime you think you may need emergency care. For example, call if: ? You passed out (lost consciousness). Call your doctor now or seek immediate medical care if: ? You have new symptoms like fever, difficulty breathing, Chest pain, vomiting, or rash. ? You have new or different pain. ? You are confused and are having trouble thinking clearly. ? Your symptoms are getting worse. Watch closely for changes in your health, and be sure to contact your doctor if: ? You do not get better as expected. Patient Instructions: Rivaroxaban (By mouth), Pulmonary Embolism (DC), How to Use and Care for Your PEG Tube (DC), Garcia Catheter Placement and Care (DC), Anemia (DC), PEG (Percutaneous Endoscopic Gastrostomy) Tube Insertion (DC) Patient Language: Kyrgyz Stand Alone Forms: General Discharge Information, Mcfp Discharge Discharge Medications: New Eliquis 5 mg Tablet 5 mg PO Q12HR Qty: 60 0RF Rx Instructions: Start date 09/29/2025 Eliquis 5 mg Tablet 10 mg PO Q12HR Qty: 22 0RF Continued ipratropium-albuterol 0.5 mg-3 mg(2.5 mg base)/3 mL solution for nebulization 3 ml INHALATION Q6H PRN (Reason: copd) clobetasol 0.05 % cream 1 applic TOPICAL BID montelukast [Singulair] 10 mg tablet 10 mg PO HS geriatric multivitamin-min Capsule 1 cap PO DAILY ascorbic acid (vitamin C) 500 mg capsule, extended release 500 mg PO DAILY Santyl 250 unit/gram ointment 1 applic topical DAILY Rx Instructions: Apply to right lateral foot topically daily for wound. Apply to sacrum, coccyx topically every day shift for wounds. Cleanse sacrum and coccyx with wound cleanser or NS, apply santyl to wound bed cover with dakins moistened fluffed gauze, cover with sacral border foam dressing. sennosides-docusate sodium [Senokot-S] 8.6-50 mg Tablet 1 tab-cap PO HS Qty: 30 0RF bisacodyl 10 mg Suppository 10 mg RECTAL QAM PRN (Reason: Constipation) Qty: 12 0RF Avonex 30 mcg/0.5 mL pen injector 30 mcg IM WEEKLY magnesium citrate [Citroma] Solution 296 ml PO DAILY PRN (Reason: constipation) Fleet Enema 19-7 gram/118 mL enema 118 ml RECTAL DAILY PRN (Reason: constipation) magnesium hydroxide [Milk of Magnesia] 400 mg/5 mL suspension 30 ml PO DAILY PRN (Reason: constipation) oxycodone 5 mg tablet 5 mg PO Q6H PRN (Reason: pain) Qty: 1 0RF Breztri Aerosphere 160-9-4.8 mcg/actuation HFA aerosol inhaler 2 inh inhalation BID Qty: 10.7 3RF Discontinued Xarelto 10 mg tablet 10 mg PO DAILY Date of admission: 09/06/25 16:11 Primary Care Provider: Gino Morin Admitting Provider: Baltazar Rivera Oca Attending physician on admission: Viviana Pablo Condition: Stable Quality VTE Prophylaxis VTE prophylaxis: mechanical ordered and pharmacologic ordered -Patient's previous records reviewed on admission -ER notes reviewed in detail on admission -discussed all findings and current treatment plan with patient/Family/POA -Consultations reviewed for recommendations -Patient's disposition for safe discharge discussed with correctional case records supervisor -radiology imaging, EKG and test results I have personally reviewed and interpreted unless otherwise specified Dictation performed by [employer] direct speech recognition software, therefore systems programmer variants and typographical errors may occur. Hospitalist MIPS Heart Failure (Exclusion) Patient has history of Heart Transplant or Left Ventricular Assistive Device?: No IF YES, STOP HERE Heart Failure (Qualifier) Patient has current or prior documentation of LVEF less than or equal to 40%, or mod/servere depressed LVSF?: No IF NO, STOP HERE
--- NOTE | 2025-09-23 15:26 | PC.NURSE ---
Attempted to call report to [facility], took this RNs name and number. Report will be sent with EMS.
--- NOTE | 2025-09-23 17:44 | PC.NURSE ---
Daughter, KEVAN, was notified at [phone] that pt. is going back to facility via EMS.
--- NOTE | 2025-09-26 14:27 | PC.NURSE ---
This RN faxed a discontinue central line order to the facility of [facility].
== END 2025-09-23 17:40 | DRG 871 ==
LOC: ANHED 14:56 → ANHICU 16:22 → ANHIMU 09-08 00:12 → ANH3MEDSUR 09-13 18:15
PROVIDERS: General Practice; Internal Medicine; Internal Medicine Gastroenterology; Internal Medicine Hematology & Oncology; Nurse Practitioner; Nurse Practitioner Adult Health; Student in an Organized Health Care Education/Training Program; Admitting Provider Student in an Organized Health Care Education/Training Program; Emergency Provider Student in an Organized Health Care Education/Training Program; PCP Psychiatry & Neurology Neurology; Visit Provider Nurse Practitioner Family
PROC: 0DH63UZ Insertion of Feeding Device into Stomach, Percutaneous Approach (ICD-10-PCS; CPT 43246; principal; 2025-09-21 15:00)
DX: A41.59 Other Gram-negative sepsis (principal); E43 Unspecified severe protein-calorie malnutrition; G93.41 Metabolic encephalopathy; L89.154 Pressure ulcer of sacral region, stage 4; R65.21 Severe sepsis with septic shock; I26.99 Other pulmonary embolism without acute cor pulmonale; T83.518A Infection and inflammatory reaction due to other urinary catheter, initial encounter; N17.9 Acute kidney failure, unspecified; N30.01 Acute cystitis with hematuria; Z68.1 Body mass index [BMI] 19.9 or less, adult; E87.0 Hyperosmolality and hypernatremia; R13.12 Dysphagia, oropharyngeal phase; B96.4 Proteus (mirabilis) (morganii) as the cause of diseases classified elsewhere; L89.620 Pressure ulcer of left heel, unstageable; E87.6 Hypokalemia; G35.D Multiple sclerosis, unspecified; I51.89 Other ill-defined heart diseases; J44.9 Chronic obstructive pulmonary disease, unspecified; R62.7 Adult failure to thrive; Z66 Do not resuscitate; Z74.01 Bed confinement status; Z79.01 Long term (current) use of anticoagulants; Z87.891 Personal history of nicotine dependence; Z22.322 Carrier or suspected carrier of Methicillin resistant Staphylococcus aureus
CPT/HCPCS: 36415; 36430; 36556; 43246; 71275; 72193; 74174; 74230; 76770; 80048; 80053; 80202; 81001; 82550; 82570; 82607; 82728; 82746; 82948; 83540; 83550; 83605; 83735; 84100; 84132; 84133; 84145; 84156; 84238; 84295; 84300; 84466; 84478; 84484; 84540; 85014; 85018; 85025; 85027; 85055; 85610; 85652; 85730; 86140; 86850; 86900; 86901; 86920; 87040; 87086; 87186; 87641; 92526; 92610; 92611; 93005; 93970; 96360; 99284; 99291; A9270; C1751; C8929; J0690; J0692; J0696; J1450; J1644; J1815; J2003; J2270; J2470; J2704; J2997; J3373; J3475; J3480; J7030; J7040; J7050; J7070; J7120; P9016; P9047; Q9957; Q9967

== ENCOUNTER 2025-09-26 12:53 | Emergency (ER) | payer MEDICARE, SELFPAY ==
[2025-09-26 12:58] VITALS: BP 158/94; PULSE 92; RESP 18; TEMP 36.6; O2SAT 100
--- NOTE | 2025-09-26 13:13 | ED_ITS ---
HPI - General Adult General Chief complaint: Recheck/Abnormal Lab/Rx Stated complaint: needs IJ removed Time Seen by Provider: 09/26/25 13:01 History of Present Illness HPI narrative: 69-year-old male present to the emergency department for evaluation for a left IJ central line that was still in place at time of discharge. Patient was discharged to a local senior care. assisted did not have an order to remove it so he was sent to the emergency department for removal. Related Data Home Medications ?Medication ?Instructions ?Recorded ?Confirmed ?Last Taken ?Type ascorbic acid (vitamin C) 500 mg 500 mg PO DAILY Wound s 07/27/25 09/06/25 07/25/25 History capsule,extended release clobetasol 0.05 % topical cream 1 applic topical BID r toney 07/27/25 09/06/25 07/26/25 History collagenase clostridium histo. 250 1 applic topical DA LETICIA 07/27/25 09/06/25 07/26/25 History unit/gram topical ointment (Santyl) geriatric multivitamin-min 1 cap PO DAILY Wounds 07/2709/06/25 07/25/25 Hist ory ipratropium 0.5 mg-albuterol 3 mg 3 ml inhalation Q6H PRN copd 07/27/25 09/06/25 07/26/25 History (2.5 mg base)/3 mL nebulization soln montelukast 10 mg tablet 10 mg PO HS 07/27/25 5 07/25/25 History (Singulair) interferon beta-1a 30 mcg/0.5 mL 30 mcg IM WEEKLY 02/2509/06/25 Unknown History intramuscular pen injector (Avonex) magnesium citrate (Citroma oral 296 ml PO DAILY PRN co nstipation 09/06/25 09/06/25 Unknown History solution) magnesium hydroxide 400 mg/5 mL 30 ml PO DAILY PRN con stipation 09/06/25 09/06/25 Unknown History oral suspension (Milk of Magnesia) sodium phosphates 19 gram-7 118 ml RECTAL DAILY PRN 09/06/25 Unknown History gram/118 mL enema (Fleet Enema) constipation Allergies Allergy/AdvReac Type Severity Reaction Status Date / Time No Known Allergies Allergy Verified 09/21/25 14:24 Review of Systems Review of Systems: All systems reviewed & are unremarkable except as noted in HPI and below PMFSH Past Medical History Medical History Metabolic encephalopathy Secondary to infected decubitus ulcer, August 2025 Tobacco use COPD (chronic obstructive pulmonary disease) Multiple sclerosis BMI 22.0-22.9, adult Surgical History Surgical History History of hip surgery Right hip pinning June 2024 at [facility], [place] of tonsillectomy Family History Family History Father Liver cancer Mother No problems noted. Sibling No problems noted. Social History Social History Smoking packs per day: 1.5 Smoking cigarettes per day: 30.0 Years smoked: 50 Smoking pack-years: 75.00 Smoking status: Former smoker Second hand tobacco smoke exposure: Yes Alcohol intake: never Substance use: never Substance use type: unknown Do You Feel Safe in your Home?: Yes Lack of Transportation: No Lack of Food: Never True Current Housing: I Have Housing Concerned About Future Housing: No Difficulty Paying Gas/Electric Bills: No Difficulty Paying for Meds: No Currently Unemployed: No Education: High School Diploma/GED Difficulty w/ Childcare or Family Care: No Living arrangements: alone Occupation/Education: retired Additional occupation/education comments: [employer] Gender identity (if verbalized by the patient): Male Spiritual care concerns: No Exam Narrative: APPEARANCE: No distress HEAD: normocephalic, atraumatic. EYES: PERRLA/EOMI, conjunctivae clear. NOSE: Normal no drainage EARS:TMS clear with good light reflex. THROAT: Pharynx clear, no exudate. NECK: Central line in left IJ RESPIRATORY: Airway patent, respirations nonlabored. Clear to auscultation bilaterally, no rales, rhonchi, wheezing. CARDIOVASCULAR: Regular rate and rhythm without murmurs rubs or gallops. ABDOMINAL: Soft, nontender, nondistended, normal bowel sounds MUSCULOSKELETAL: Moves all extremities. Strength/ROM intact, No edema, No calf tenderness. NEURO: Alert. Cranial nerves II through XII intact. Good gait. Good coordination SKIN: Warm, dry. Normal Color Course Vital Signs Vital signs: Vital Signs Temperature 97.8 F 09/26/25 12:58 Pulse Rate 92 09/26/25 12:58 Respiratory Rate 18 09/26/25 12:58 Blood Pressure 158/94 H 09/26/25 12:58 Pulse Oximetry 100 09/26/25 12:58 Oxygen Delivery Room Air 09/26/25 12:58 Temperature 97.8 F 09/26/25 12:58 Pulse Rate 92 09/26/25 12:58 Respiratory Rate 18 09/26/25 12:58 Blood Pressure 158/94 H 09/26/25 12:58 Pulse Oximetry 100 09/26/25 12:58 Oxygen Delivery Room Air 09/26/25 12:58 Medical Decision Making MDM Narrative Medical decision making narrative: 69-year-old male presenting to the emergency department for evaluation for left IJ removal. IJ had clean intact dressing. IJ was removed and and patient had no complications. Patient will be discharged back to the care facility. Vital Signs Vital Signs: Vital Signs Temperature 97.8 F 09/26/25 12:58 Pulse Rate 92 09/26/25 12:58 Respiratory Rate 18 09/26/25 12:58 Blood Pressure 158/94 H 09/26/25 12:58 Pulse Oximetry 100 09/26/25 12:58 Oxygen Delivery Room Air 09/26/25 12:58 Temperature 97.8 F 09/26/25 12:58 Pulse Rate 92 09/26/25 12:58 Respiratory Rate 18 09/26/25 12:58 Blood Pressure 158/94 H 09/26/25 12:58 Pulse Oximetry 100 09/26/25 12:58 Oxygen Delivery Room Air 09/26/25 12:58 Discharge Plan Discharge Clinical Impression: Central line complication Patient Disposition: NH Shelter/Asst Living Condition: Stable Instructions: Antibiotic Form Additional Instructions: Continue to have close follow-up with your physicians. Patient Language: Irish Prescriptions: No Action ipratropium-albuterol 0.5 mg-3 mg(2.5 mg base)/3 mL solution for nebulization 3 ml INHALATION Q6H PRN (Reason: copd) clobetasol 0.05 % cream 1 applic TOPICAL BID montelukast [Singulair] 10 mg tablet 10 mg PO HS geriatric multivitamin-min Capsule 1 cap PO DAILY ascorbic acid (vitamin C) 500 mg capsule, extended release 500 mg PO DAILY Santyl 250 unit/gram ointment 1 applic topical DAILY Rx Instructions: Apply to right lateral foot topically daily for wound. Apply to sacrum, coccyx topically every day shift for wounds. Cleanse sacrum and coccyx with wound cleanser or NS, apply santyl to wound bed cover with dakins moistened fluffed gauze, cover with sacral border foam dressing. sennosides-docusate sodium [Senokot-S] 8.6-50 mg Tablet 1 tab-cap PO HS Qty: 30 0RF bisacodyl 10 mg Suppository 10 mg RECTAL QAM PRN (Reason: Constipation) Qty: 12 0RF Avonex 30 mcg/0.5 mL pen injector 30 mcg IM WEEKLY magnesium citrate [Citroma] Solution 296 ml PO DAILY PRN (Reason: constipation) Fleet Enema 19-7 gram/118 mL enema 118 ml RECTAL DAILY PRN (Reason: constipation) magnesium hydroxide [Milk of Magnesia] 400 mg/5 mL suspension 30 ml PO DAILY PRN (Reason: constipation) Eliquis 5 mg Tablet 5 mg PO Q12HR Qty: 60 0RF Rx Instructions: Start date 09/29/2025 Eliquis 5 mg Tablet 10 mg PO Q12HR Qty: 22 0RF oxycodone 5 mg tablet 5 mg PO Q6H PRN (Reason: pain) Qty: 1 0RF Breztri Aerosphere 160-9-4.8 mcg/actuation HFA aerosol inhaler 2 inh inhalation BID Qty: 10.7 3RF Follow-up/Referrals: Gino Morin MD [Primary Care Provider, Neurology]
--- NOTE | 2025-09-26 13:17 | PC.NURSE ---
ERP Hector to room to remove LINE, tip intact, site cleansed and dressing with antibacterial ointment placed.
== END 2025-09-26 14:36 ==
PROVIDERS: Emergency Provider Emergency Medicine; PCP Psychiatry & Neurology Neurology
DX: Z45.2 Encounter for adjustment and management of vascular access device (principal); J44.9 Chronic obstructive pulmonary disease, unspecified; G35.D Multiple sclerosis, unspecified; Z87.891 Personal history of nicotine dependence
CPT/HCPCS: 99282

== ENCOUNTER 2025-09-28 16:42 | Inpatient (IN) | payer MEDICARE, SELFPAY ==
--- NOTE | ~2025-09-28 | XR_ITS ---
EXAMINATION: XR chest 1V portable DATE: 09/28/2025 17:20 INDICATION: Productive cough. Leukocytosis. TECHNIQUE: A single frontal view of the chest was obtained. COMPARISON: Chest x-ray dated 08/08/2025 FINDINGS: Heart size is normal. Atherosclerotic aorta. Lungs do not show acute findings. IMPRESSION: 1. No acute pulmonary findings. Reviewed, dictated and finalized at location T. INTERPRETIVE SPECIALIST
--- NOTE | ~2025-09-28 | CT_ITS ---
EXAMINATION: CT abdomen pelvis w con DATE: 09/28/2025 18:52 INDICATION: Decubitus ulcer over the left hip. Leukocytosis. TECHNIQUE: Computed tomography (CT) of the abdomen and pelvis was performed 100 cc intravenous contrast. Automated exposure control and iterative reconstruction technique were employed. The dose-length product was 339.11 mGy-cm. COMPARISON: CT dated 09/06/2025. FINDINGS: Bases do not show acute findings. Lungs are emphysematous. Gastrostomy is noted in the epigastric region. No focal lesions of the liver and spleen. No evidence of small bowel obstruction. Fecal impaction of distal colon. Severe diffuse bladder wall thickening is noted. Decubitus ulcer over the sacrum and coccyx the midline, with the ulcer measuring 17 mm in depth. No localized abscess. Postsurgical changes of right hip. IMPRESSION: 1. No acute findings within the abdomen. Significant fecal impaction of the rectum. 2. 1.7 cm deep decubitus ulcer over the lower sacrum and coccyx. Reviewed, dictated and finalized at location T. NCE SHEET ANALYST IMPRESSION: 1. No acute findings within the abdomen. Significant fecal impaction of the rec quinn. 2. 1.7 cm deep decubitus ulcer over the lower sacrum and coccyx.
[2025-09-28 16:41] VITALS: BP 107/65; PULSE 102; RESP 25; TEMP 36.8; O2SAT 98
--- NOTE | 2025-09-28 16:53 | PC.NURSE ---
Notified KEVAN Morrow of patient arrival to ED. [phone]
--- OUTSIDE RECORDS SUMMARY | 2025-09-28 16:53 | XMS_ITS | Continuity of Care Document ---
Author Organization [place] - [facility], [facility] Address [address] [place] [address] Assessment Encounter Date Assessment Date Assessment LastModified by Organization Details LastModified Time 07/18/2025 07/18/2025 HPI: 69 year old male presents with his QUALITY LIAISON from his living facility today for 1st postop vist after undergoing right hip intertrochanteric nail affixus on 07/01. He is approximately 2 weeks postop. He reports doing a little better, and currently rates his pain as 5/10. He takes naproxen as needed. He is on Xarelto for dvt prophylaxis by hospitalist. He is on oxygen and wheelchair bound. QUALITY LIAISON and patient are poor historians. Physical Exam: [...] an XR order with the patient and QUALITY LIAISON to get XR done before the next appointment. Alondra confirmed that it could be done at the facility. PT order was also given to patient and QUALITY LIAISON. Follow Up: 4 weeks. They will bring [...] IM hip pinning. Thanks 2024 025 deepalidariel [facility] [email or web address], [place], [address], 15:21:44 Procedures None recorded. Surgeries None recorded. Imaging XR, hip + pelvis, unilateral , 2 or 3 view - Please take XR after 08/28/2025 and before 08/31/2025 for follow up apt on 08/31/20252024 025 deepalidariel [facility] [address], [place], [address], 15:21:44 Medication Orders None recorded. Patient TargetsNo targets recorded. Patient InstructionsNo instructions recorded. Reason for Referral Physical Therapist Referral for [...] more view No observ ation record ed. [address] [place], [address], 07/01/2025 15:32:32 07/01/2007/01/2025 XR, pelvi s No observ ation record ed. [address] [place], [address], 07/01/2025 15:32:12 07/13/2007/01/2025 XR, hip + pelvi s, unila teral No observ ation record ed. [address] [place], [address], 07/14/2025 08:05:39 Result Notes None recorded. Problems Name Problem SNOMED Code Status Onset Date Resolution Date Notes Provider Name and Address Organization Details Recorded Time Impacted cerumen of bilateral ears 90313524694343 08 Active 2023 Leslye Kim, MAYRA [address], [place], [address], [facility] 4 14:42:40 Pain of hip region 78129000 Active 2024 QASIM Cuevas [facility] 5 15:04:27 Problem Notes None recorded. Procedures Surgical History Date Name Laterality Status Provider Name and Address Organization Details Recorded Time nasal septoplasty completed PEDRO Zamarripa [facility] [employer] 07/07/2024 14:18:24 Imaging Results None recorded. Procedure [...] No t Available Vitals Date Recorded Body height Body mass index (BMI) Body weight Provider Name and Address Organization Details Last Updated DateTime 07/18/2025 180.34 cm 22.3 kg/m2 32028.78 g QASIM Cuevas [facility] [employer] 07/18/2025 15:07:02 Social History Question Answer Notes LastModified by Organizat ion Details LastModified Time Tobacco Smoking Status Never Smoker QASIM Cuevas, [facility] 07/18/2025 15:04:12 What Was The Date Of Your Most Recent Tobacco Screening? 07/18/2025 [email or web address] Information not available 07/18/2025 Sex: Unknown Functional Status Question Answer Note LastModified by Organization D etails LastModified Time What is your level of alcohol consumption? None [email or web address] Information not available 07/18/2025 Mental Status None [...] ICD10 Code Diagnosis IMO Codes Diagnosis Note [id number] Jw Parra MD [facility] [place] [address] [place] [address] 07/18/2025 14:41:02 07/18/2025 15:56:17 Pain of hip region 43245419 M25.551 [id number] History of hip fracture [id number] Z87.81 [id number] Health Concerns Section Related Observation LastModified by Organization Detai ls LastModified Time None Recorded Concern Status LastModified by Organization Details LastModified Time None Recorded Payers Encounter Date Sequence Insurance Name Policy Number Policy Baugh Covered Member ID Baugh Member ID Guarantor Name 07/18/2025 1 [facility] (MEDICARE REPLACEMENT/A DVANTAGE - HMO) [id number] Bashir Gruber [id number] Bashir Gruber
[2025-09-28 17:10] LABS: Hematocrit 36.8 % (42.0-52.0); Hemoglobin 11.1 g/dL (14.0-18.0); Immature Granulocyte Percent A 1.4 % (0-0.5); Lymphocytes Absolute Auto 3.42 K/mm3 (0.9-3.2); Mean Corpuscular HGB Conc 30.2 g/dl (32-36); Mean Corpuscular Hemoglobin 28.2 pg (26-34); Mean Corpuscular Volume 93.4 fl (80-100); Nucleated Red Blood Cells Absolute Auto 0.000 K/mm3 (0.0-0.012); Nucleated Red Blood Cells Perc 0.0 % (0.0-0.2); Platelet Count Result 489 k/mm3 (150-375); Red Blood Count 3.94 M/mm3 (4.6-6.20); White Blood Count 17.0 K/mm3 (4.5-10.0)
[2025-09-28 17:31] VITALS: BP 105/66; PULSE 108; RESP 25
[2025-09-28 17:38] LABS: Alanine Aminotransferase 23 U/L (6-50); Albumin Level 3.5 g/dL (3.5-5.1); Alkaline Phosphatase 97 U/L (38-126); Anion Gap 1 mmol/L (4-12); Aspartate Amino Transferase 27 U/L (17-59); Bilirubin,Total 0.3 mg/dL (0.2-1.3); Blood Urea Nitrogen 19 mg/dL (9-20); Calcium 8.9 mg/dL (8.4-10.2); Carbon Dioxide 34 mmol/L (22-30); Chloride 99 mmol/L (98-107); Estimated CRCL calculation 87 ml/min; Estimated Glomerular Filt Rate > 60; Glucose 109 mg/dL (65-110); Potassium 4.7 mmol/L (3.4-5.0); Sodium 134 mmol/L (137-145); Total Protein 7.4 g/dL (6.3-8.2)
[2025-09-28 18:06] VITALS: O2SAT 94
[2025-09-28] MEDS: LACTATED RINGERS 1,000 ML 999 ML IV CONT ×2 (18:10→20:48)
[2025-09-28 18:36] LABS: Appearance Urine Turbid (Clear)
[2025-09-28 18:37] LABS: Specific Grav Ur 1.020 (1.001-1.035)
[2025-09-28 18:38] LABS: Add Urine Microscopic? YES; Glucose Urine UA Negative (Negative); Leukocyte Esterase Ur 3+ LEU/UL (Negative); Nitrate Urine Negative (Negative)
--- NOTE | 2025-09-28 20:32 | ED_ITS ---
HPI - Recheck/Abnormal Lab/Rx General Chief Complaint: Recheck/Abnormal Lab/Rx Stated Complaint: ABN LAB Time Seen by Provider: 09/28/25 16:48 History of Present Illness HPI narrative: Patient presents here due to concern for increasing white blood cell count. Had recently been admitted with urosepsis and pulmonary embolism, now on blood thinners. He has also been having a cough with some productive sputum Related Data Home Medications ?Medication ?Instructions ?Recorded ?Confirmed ?Last Taken ?Type ascorbic acid (vitamin C) 500 mg 500 mg PO DAILY Wound s 07/27/25 09/28/25 09/28/25 History capsule,extended release clobetasol 0.05 % topical cream 1 applic topical BID R DEBRA 07/27/25 09/28/25 09/28/25 History collagenase clostridium histo. 250 1 applic topical DA LETICIA 07/27/25 09/28/25 09/28/25 History unit/gram topical ointment (Santyl) geriatric multivitamin-min 1 cap PO DAILY Wounds 07/2709/28/25 09/28/25 History ipratropium 0.5 mg-albuterol 3 mg 3 ml inhalation Q6H PRN copd 07/27/25 09/28/25 07/26/25 History (2.5 mg base)/3 mL nebulization soln montelukast 10 mg tablet 10 mg feeding tube HS 09/28/25 09/27/25 History (Singulair) magnesium citrate (Citroma oral 296 ml feeding tube DA LETICIA PRN 09/06/25 09/28/25 Unknown History solution) constipation magnesium hydroxide 400 mg/5 mL 30 ml feeding tube SULEMAN LY PRN 09/06/25 09/28/25 Unknown History oral suspension (Milk of Magnesia) constipation sodium phosphates 19 gram-7 118 ml RECTAL DAILY PRN 09/28/25 Unknown History gram/118 mL enema (Fleet Enema) constipation apixaban 5 mg tablet (Eliquis) 5 mg feeding tube Q12HR 09/28/25 09/28/25 09/28/25 History dimethyl fumarate 120 mg 120 mg PO BID 09/28/2509/2809/28/25 History capsule,delayed release fluticasone 250 mcg-salmeterol 50 2 inh inhalation Q12 H 09/28/25 09/28/25 09/28/25 History mcg/dose blistr powdr for inhalation (Advair Diskus) oxycodone 5 mg tablet 5 mg feeding tube Q6H PRN pa in 09/28/25 09/28/25 Unknown History Allergies Allergy/AdvReac Type Severity Reaction Status Date / Time No Known Allergies Allergy Verified 09/28/25 22:52 Review of Systems 2 Review of Systems: All systems reviewed & are unremarkable except as noted in HPI and below [facility] Past Medical History Medical History (Updated 09/29/25 @ 13:09 by Viky Bearden MD) Oropharyngeal dysphagia Modified barium swallow 09/14/2025 patient started on pureed diet with thickened liquids G-tube was placed because patient was not taking enough nutrition orally Chronic hypoxic respiratory failure, on home oxygen therapy Hyperthyroidism With most recent TSH July 2025 normal patient is not on active treatment Former heavy tobacco smoker Diastolic heart failure Echocardiogram 07/26/2025: EF 60 65%, grade 1 diastolic dysfunction, normal E/E, Anasarca Multifactorial patient has 3+ proteinuria and diastolic dysfunction Pulmonary embolism (09/06/25) Right upper middle lobe segmental and subsegmental pulmonary embolism with small thrombus burden MRSA carrier COPD (chronic obstructive pulmonary disease) Multiple sclerosis Surgical History Surgical History (Updated 09/28/25 @ 22:31 by Analilia Stephenson DO) History of incision and drainage (07/26/25) Stage IV decubitus ulcer measuring 15 cm x 8 cm S/P percutaneous endoscopic gastrostomy (PEG) tube placement (09/21/25) History of hip surgery Right hip pinning June 2024 at [facility] tonsillectomy Family History Family History Father Liver cancer Mother No problems noted. Sibling No problems noted. Social History Social History (Updated 09/29/25 @ 02:34 by Analilia Stephenson DO) Social History: The patient resides at [facility]. Code status: DNR/DNI (according to documentation from prior hospitalization) Healthcare power of associate attorney: Odalys (daughter) Smoking packs per day: 1.5 Smoking cigarettes per day: 30.0 Years smoked: 50 Smoking pack-years: 75.00 Smoking status: Former smoker Second hand tobacco smoke exposure: Yes Alcohol intake: never Substance use: never Substance use type: unknown Lack of Transportation: No Lack of Food: Never True Current Housing: I Have Housing Concerned About Future Housing: No Difficulty Paying Gas/Electric Bills: No Difficulty Paying for Meds: No Currently Unemployed: No Education: High School Diploma/GED Difficulty w/ Childcare or Family Care: No [place] [facility] [place] arrangements comments[place] [facility] [place]. Occupation/Education: retired Additional occupation/education comments: [employer] Gender identity (if verbalized by the patient): Male Spiritual care concerns: No Exam 2 Narrative: EXAMINATION OF ORGAN SYSTEMS/BODY AREAS: Constitutional: Vital signs per nursing GENERAL:[No acute distress, non-toxic appearing.] HEAD: Normal with no signs of head trauma. EYES: EOMI, conjunctiva normal ENT: Hearing grossly intact LUNGS: Nonlabored breathing. HEART: Tachycardic ABD: [Soft], [nontender to palpation] : [address]; clear urine draining. EXT: Normal range of motion SKIN: Extensive decub ulcers, bilateral hip ulcers; appear deep but slightly bloody and no purulence NEURO: [Alert. No gross focal sensory or strength deficits.] PSYCH: Normal affect Course Vital Signs Vital signs: Vital Signs Temperature 98.2 F 09/28/25 16:41 Pulse Rate 102 H 09/28/25 16:41 Respiratory Rate 25 H 09/28/25 16:41 Blood Pressure 107/65 09/28/25 16:41 Pulse Oximetry 98 09/28/25 16:41 Oxygen Delivery Room Air 09/28/25 16:41 Temperature 98.1 F 09/29/25 05:59 Pulse Rate 65 09/29/25 08:47 Respiratory Rate 20 09/29/25 08:47 Blood Pressure 96/62 L 09/29/25 05:59 Pulse Oximetry 100 09/29/25 08:00 Oxygen Delivery Nasal Cannula 09/29/25 08:00 Oxygen Flow Rate 2 09/29/25 08:00 MDM - Recheck/Abnormal Lab/Rx MDM Narrative Medical decision making narrative: Patient presents here due to concern for increasing white blood cell count. Had recently been admitted with urosepsis and pulmonary embolism, now on blood thinners. He has also been having a cough with some productive sputum. Otherwise he is denying any complaints. I did check labs here and he does have white count of 17, it was living when he was discharged few days ago, he does also have elevated platelets and lactic of 2.2. At this point, along with his tachycardia, sepsis protocol initiated, blood cultures obtained, antibiotics ordered, fluids ordered. Chest x-ray thankfully does not show any acute pneumonia, given the multiple decubitus ulcers he has, I did obtain a CT abdomen pelvis, which does show a large amount of stool but no other obvious acute findings. I did discuss this with the patient, I did discuss I would recommend fecal disimpaction, patient refuses. I did review his urine culture and noted it was carbapenem resistant. However minimal bacteria and urine didn't appear cloudy so I have lower concern for UTI. D/w hospitalist for admission at this time. Lab Data 09/29/25 04:59 09/29/25 04:59 Labs: Lab Results 09/28/25 09/28/25 09/28/25 Range/Units 17:00 17:03 18:12 WBC 17.0 H (4.5-10.0) K/mm3 RBC 3.94 L (4.6-6.20) M/mm3 Hgb 11.1 L D (14.0-18.0) g/dL Hct 36.8 L (42.0-52.0) % MCV 93.4 (80-100) fl MCH 28.2 (26-34) pg MCHC 30.2 L (32-36) g/dl RDW 16.8 H (11.5-14.5) % Plt Count 489 H D (150-375) k/mm3 MPV 10.2 (7.4-10.4) fl Immature Gran % (Auto) 1.4 H (0-0.5) % Neut % (Auto) 68.7 (45.5-73.1) % Lymph % (Auto) 20.1 (18.3-44.2) % [place] % (Auto) 7.4 (2.6-8.5) % Eos % (Auto) 2.0 (0-4.4) % Baso % (Auto) 0.4 (0.2-1.2) % Lymph # (Auto) 3.42 H (0.9-3.2) K/mm3 [place] # (Auto) 1.3 H (0.1-0.6) K/mm3 Eos # (Auto) 0.3 (0-0.3) K/mm3 Baso # (Auto) 0.1 (0.0-0.1) K/mm3 Abs Immat Gran (auto) 0.23 H (0.00-0.031) K/mm3 Absolute Neuts (auto) 11.7 H (1.3-6.7) K/mm3 Absolute Nucleated RBC 0.000 (0.0-0.012) K/mm3 Nucleated RBC % 0.0 (0.0-0.2) % Sodium 134 L (137-145) mmol/L Potassium 4.7 (3.4-5.0) mmol/L Chloride 99 (98-107) mmol/L Carbon Dioxide 34 H (22-30) mmol/L Anion Gap 1 L (4-12) mmol/L BUN 19 (9-20) mg/dL Creatinine 0.66 L (0.7-1.3) mg/dL Estim Creat Clear Calc 87 ml/min Estimated GFR > 60 (59 - ) Glucose 109 (65-110) mg/dL Lactic Acid 2.2 H (0.7-2.0) mmol/L Calcium 8.9 (8.4-10.2) mg/dL Total Bilirubin 0.3 (0.2-1.3) mg/dL AST 27 (17-59) U/L ALT 23 (6-50) U/L Alkaline Phosphatase 97 (38-126) U/L Total Protein 7.4 (6.3-8.2) g/dL Albumin 3.5 (3.5-5.1) g/dL Urine Color Dark yellow (Yellow) Urine Appearance Turbid H (Clear) Urine pH 6.0 (5.0-9.0) Ur Specific [place] 1.020 (1.001-1.035) Urine Protein 3+ H (Negative) mg/dL Urine Glucose (UA) Negative (Negative) mg/dL Urine Ketones Trace H (Negative) mg/dL Ur Blood (Man) 3+ H (Negative) Urine Nitrate Negative (Negative) Urine Bilirubin 1+ H (Negative) Urine Urobilinogen 0.2 (<2.0) mg/dL Leukocyte Esterase Rfl 3+ H (Negative) DEVON/UL Urine RBC 51-100 H (0-2) /hpf Urine WBC >100 (0-3) /hpf Ur Squamous Epith Cells Few (Few) /hpf Urine Bacteria 1+ H (None) /hpf 09/28/25 Range/Units 19:55 WBC (4.5-10.0) K/mm3 RBC (4.6-6.20) M/mm3 Hgb (14.0-18.0) g/dL Hct (42.0-52.0) % MCV (80-100) fl MCH (26-34) pg MCHC (32-36) g/dl RDW (11.5-14.5) % Plt Count (150-375) k/mm3 MPV (7.4-10.4) fl Immature Gran % (Auto) (0-0.5) % Neut % (Auto) (45.5-73.1) % Lymph % (Auto) (18.3-44.2) % [place] % (Auto) (2.6-8.5) % Eos % (Auto) (0-4.4) % Baso % (Auto) (0.2-1.2) % Lymph # (Auto) (0.9-3.2) K/mm3 [place] # (Auto) (0.1-0.6) K/mm3 Eos # (Auto) (0-0.3) K/mm3 Baso # (Auto) (0.0-0.1) K/mm3 Abs Immat Gran (auto) (0.00-0.031) K/mm3 Absolute Neuts (auto) (1.3-6.7) K/mm3 Absolute Nucleated RBC (0.0-0.012) K/mm3 Nucleated RBC % (0.0-0.2) % Sodium (137-145) mmol/L Potassium (3.4-5.0) mmol/L Chloride (98-107) mmol/L Carbon Dioxide (22-30) mmol/L Anion Gap (4-12) mmol/L BUN (9-20) mg/dL Creatinine (0.7-1.3) mg/dL Estim Creat Clear Calc ml/min Estimated GFR (59 - ) Glucose (65-110) mg/dL Lactic Acid 0.8 (0.7-2.0) mmol/L Calcium (8.4-10.2) mg/dL Total Bilirubin (0.2-1.3) mg/dL AST (17-59) U/L ALT (6-50) U/L Alkaline Phosphatase (38-126) U/L Total Protein (6.3-8.2) g/dL Albumin (3.5-5.1) g/dL Urine Color (Yellow) Urine Appearance (Clear) Urine pH (5.0-9.0) Ur Specific [place] (1.001-1.035) Urine Protein (Negative) mg/dL Urine Glucose (UA) (Negative) mg/dL Urine Ketones (Negative) mg/dL Ur Blood (Man) (Negative) Urine Nitrate (Negative) Urine Bilirubin (Negative) Urine Urobilinogen (<2.0) mg/dL Leukocyte Esterase Rfl (Negative) DEVON/UL Urine RBC (0-2) /hpf Urine WBC (0-3) /hpf Ur Squamous Epith Cells (Few) /hpf Urine Bacteria (None) /hpf Critical Care Time Critical Care Time Critical Care Time: Yes Total Critical Care Time: 31 Discharge Plan Discharge Clinical Impression: Sepsis, Decubitus ulcer, Cough Patient Disposition: Still a Patient Condition: Stable
[2025-09-28] MEDS: PIPERACILLIN/TAZOBACTAM SOD 3.375 GM in SODIUM CHLORIDE 0.9% IV 50 ML 100 ML IVPB (20:48)
[2025-09-28] MEDS: LACTULOSE 20 GM/30 ML UDC PO (21:07)
--- NOTE | 2025-09-28 21:21 | WPCEDHO ---
ED Hand Off Checklist All vitals saved:Y IV Site documented:Y All med administrations documented:Y Triage Note Triage Note Patient brought in by EMS from [place] 09/28/25 16:41 Jennie for increasing white blood cell count. chronic indwelling catheter. recently had central line removed after being admitted . patient was finishing up a tube feed when EMS arrived. productive cough with yellow phlegm per patient. Per Report from Kay at [facility], WBC 17.4. Allergies No Known Allergies Allergy (Verified 09/21/25 14:24) Family History (Last Reviewed 09/21/25 @ 15:12 by Naif Nesbitt DO) Father Liver cancer Mother No problems noted. Sibling No problems noted. Active Medications including assessments/comments Lactated Ringer's (Lr - Lactated Ringers Iv) 1,000 mls @ 999 mls/hr IV CONT .Q1H1M STA Stop: 09/28/25 21:39 Last Admin: 09/28/25 20:48 Dose: 999 mls/hr Documented By: SHARON Infusion/Titration Document 09/28/25 20:48 SHARON (Rec: 09/28/25 20:48 SHARON [id number]) Intake IV Site Peripheral Access Right Wrist Container Volume 1,000 Waste Amount 0 Dosing Infusion Rate 999 Cumulative Dose Not Applicable Increase/Decrease Started Elapsed Time Elapsed Time ( 0m minutes) Administered/Completed Medications Discontinued Medications Piperacillin Sod/Tazobactam (Sod 3.375 gm/ Sodium Chloride) 50 mls @ 100 mls/hr IVPB ONCE STA Stop: 09/28/25 18:21 Last Infusion: 09/28/25 21:20 Dose: Infused Documented By: Admin: 09/28/25 20:48 Dose: 100 mls/hr Documented By: SHARON Lactated Ringer's (Lr - Lactated Ringers Iv) 1,000 mls @ 999 mls/hr IV CONT .Q1H1M STA Stop: 09/28/25 18:52 Last Infusion: 09/28/25 20:54 Dose: Infused Documented By: Admin: 09/28/25 18:10 Dose: 999 mls/hr Documented By: NIKHIL Lactulose (Lactulose 20 Gm/30 Ml Udc) 20 gm PO ONCE STA Stop: 09/28/25 20:52 Last Admin: 09/28/25 21:07 Dose: 20 gm Documented By: SHARON Notes 09/28/25 16:53 Nurse Note by Nidia Wright Notified KEVAN Morrow of patient arrival to ED. [phone] Initialized on 09/28/25 16:53 - END OF NOTE Interventions/Assessments General Assessment Start: 09/28/25 16:35 Freq: Status: Active Protocol: Document 09/28/25 17:02 KNW (Rec: 09/28/25 17:02 KNW [id number]) GA Neurological Assessment Level of Alert,Awake Consciousness Arousable to Verbal Orientation Oriented to Person,Oriented to Place,Oriented to Time Behavior Appropriate,Cooperative Patient Able to Comprehend Comprehension Memory Description Intact Speech Pattern Clear IV / Saline Lock, Insert Start: 09/28/25 16:35 Freq: Status: Active Protocol: Document 09/28/25 16:55 JCK (Rec: 09/28/25 16:55 JCK [id number]) IV Assessment Peripheral Access Right Wrist IV Catheter Access Initiated IV Insertion Date 09/28/25 IV Insertion Time 16:55 Catheter Gauge 20 IV Insertion 1 Attempts Ultrasound Used for No Placement IV Site Assessment WNL IV Care and WNL Maintenance Last Vital Signs Temperature 98.2 F 09/28/25 16:41 Pulse Rate 108 H 09/28/25 17:31 Respiratory Rate 25 H 09/28/25 17:31 Pulse Oximetry 94 09/28/25 18:06 Blood Pressure 105/66 09/28/25 17:31 Blood Pressure Mean 79 09/28/25 17:31 Blood Pressure Position Supine 09/28/25 16:41 Oxygen Delivery Nasal Cannula 09/28/25 18:06 Oxygen Flow Rate 2 09/28/25 18:06 Weight 66.2 kg 09/28/25 16:41 Last Result - Abnormals Only WBC 17.0 K/mm3 (4.5-10.0) H 09/28/25 17:00 RBC 3.94 M/mm3 (4.6-6.20) L 09/28/25 17:00 Hgb 11.1 g/dL (14.0-18.0) L D 09/28/25 17:00 Hct 36.8 % (42.0-52.0) L 09/28/25 17:00 MCHC 30.2 g/dl (32-36) L 09/28/25 17:00 RDW 16.8 % (11.5-14.5) H 09/28/25 17:00 Plt Count 489 k/mm3 (150-375) H D 09/28/25 17:00 Immature Gran % (Auto) 1.4 % (0-0.5) H 09/28/25 17:00 Lymph # (Auto) 3.42 K/mm3 (0.9-3.2) H 09/28/25 17:00 [place] # (Auto) 1.3 K/mm3 (0.1-0.6) H 09/28/25 17:00 Abs Immat Gran (auto) 0.23 K/mm3 (0.00-0.031) H 09/28/25 17:00 Absolute Neuts (auto) 11.7 K/mm3 (1.3-6.7) H 09/28/25 17:00 Sodium 134 mmol/L (137-145) L 09/28/25 17:00 Carbon Dioxide 34 mmol/L (22-30) H 09/28/25 17:00 Anion Gap 1 mmol/L (4-12) L 09/28/25 17:00 Creatinine 0.66 mg/dL (0.7-1.3) L 09/28/25 17:00 Lactic Acid 2.2 mmol/L (0.7-2.0) H 09/28/25 17:03 Urine Appearance Turbid (Clear) H 09/28/25 18:12 Urine Protein 3+ mg/dL (Negative) H 09/28/25 18:12 Urine Ketones Trace mg/dL (Negative) H 09/28/25 18:12 Ur Blood (Man) 3+ (Negative) H 09/28/25 18:12 Urine Bilirubin 1+ (Negative) H 09/28/25 18:12 Leukocyte Esterase Rfl 3+ DEVON/UL (Negative) H 09/28/25 18:12 Urine RBC 51-100 /hpf (0-2) H 09/28/25 18:12 Urine Bacteria 1+ /hpf (None) H 09/28/25 18:12 Most Recent Suicide Severity Rating Suicide Severity Rating NO RISK INDICATED 09/28/25 16:41
[2025-09-28 21:31] VITALS: BMI 18.3
--- NOTE | 2025-09-28 21:50 | ADMGEN ---
This patient, Bashir Gruber , was admitted to [facility] Surg Room 326-01. Patient/family oriented to hospital policies and general routines including ID bracelet, bed and alarms, visiting hours, pain management, procedures, bathroom and other care routines, personal items, smoking policy, room service/diet, and visiting hours. Information on how to activate the Rapid Response Team has been discussed. Patient/Family are encouraged to report perceived risks to care and to ask questions if they do not understand what they are told or what they should do.
--- NOTE | 2025-09-28 21:59 | WNDPHOTO ---
PHOTO ONLY - See Nursing Notes and/ or assessments for documentation.
[2025-09-28 22:00] VITALS: BP 109/62; PULSE 112; RESP 16; TEMP 36.7; O2SAT 91
--- NOTE | 2025-09-28 22:04 | WNDPHOTO ---
PHOTO ONLY - See Nursing Notes and/ or assessments for documentation.
--- NOTE | 2025-09-28 22:04 | WNDPHOTO ---
PHOTO ONLY - See Nursing Notes and/ or assessments for documentation.
--- NOTE | 2025-09-28 22:04 | WNDPHOTO ---
PHOTO ONLY - See Nursing Notes and/ or assessments for documentation.
--- NOTE | 2025-09-28 22:06 | WNDPHOTO ---
PHOTO ONLY - See Nursing Notes and/ or assessments for documentation.
--- NOTE | 2025-09-28 22:10 | WNDPHOTO ---
PHOTO ONLY - See Nursing Notes and/ or assessments for documentation.
--- NOTE | 2025-09-28 22:14 | WNDPHOTO ---
PHOTO ONLY - See Nursing Notes and/ or assessments for documentation.
--- NOTE | 2025-09-28 22:15 | WNDPHOTO ---
PHOTO ONLY - See Nursing Notes and/ or assessments for documentation.
--- NOTE | 2025-09-28 22:16 | WNDPHOTO ---
PHOTO ONLY - See Nursing Notes and/ or assessments for documentation.
--- NOTE | 2025-09-28 22:17 | WNDPHOTO ---
PHOTO ONLY - See Nursing Notes and/ or assessments for documentation.
--- NOTE | 2025-09-28 22:18 | WNDPHOTO ---
PHOTO ONLY - See Nursing Notes and/ or assessments for documentation.
--- NOTE | 2025-09-28 22:23 | WNDPHOTO ---
PHOTO ONLY - See Nursing Notes and/ or assessments for documentation.
--- NOTE | 2025-09-28 22:24 | WNDPHOTO ---
PHOTO ONLY - See Nursing Notes and/ or assessments for documentation.
[2025-09-28 23:14] VITALS: PULSE 112; RESP 16; O2SAT 91
--- NOTE | 2025-09-28 23:15 | P.HP_ITS ---
H&P: HPI History of Present Illness Date/Time: 09/28/25 21:48 Chief Complaint: Sent in from halfway for elevated white blood cell count Narrative: 69-year-old male with a past medical history of chronic debility due to multiple sclerosis with chronic sacral buttock decubitus ulcers, COPD, recent pulmonary embolism, recent hospitalization for septic shock 09/06/2025 due to UTI, he had a G-tube placed due to dysphagia and poor oral intake and was discharged 09/23/2025 back to the intermediate facility. The patient urine cultures last time grew out multidrug resistant Acinetobacter baumannii with [id number] colonies. Patient presented from intermediate facility today due to elevated white blood cell count up to 17.4. The patient had been having increased productive cough with yellow sputum resulting in staff ordering the outpatient labs. Repeat labs here confirmed level of leukocytosis patient was also found to have some lactic acidosis and was tachycardic. Subsequently had blood cultures drawn and 2 L of fluids administered in bolus. The patient is not able to provide me with any history. I asked him why he was brought in today and he initially told me eaten now. I asked him if he was not feeling well and he said well I must have been brought in because I did not feel well but he could not give me any details. The patient was noted to be coughing when I was at bedside. He denies feeling short of breath and has is oxygen in place. The patient knows alert orient to person place and the name of the president but was not oriented as to month or year. The patient seemed to have some tangential thought process and kept perseverating over baseball. He was unable to give me any information regarding his medical issues. He denied any pain. His Mondragon catheter was exchanged in the ER. Despite placement of G-tube recently patient appears to have lost 3-4 kg since prior hospitalization. Review of Systems 2 Review of Systems: Unobtainable due to patient's confusion. [facility] Past Medical History Medical History (Updated 09/28/25 @ 22:51 by Analilia Stephenson, ) Oropharyngeal dysphagia Modified barium swallow 09/14/2025 patient started on pureed diet with thickened liquids G-tube was placed because patient was not taking enough nutrition orally Chronic hypoxic respiratory failure, on home oxygen therapy Hyperthyroidism With most recent TSH July 2025 normal patient is not on active treatment Former heavy tobacco smoker Diastolic heart failure Echocardiogram 07/26/2025: EF 60 65%, grade 1 diastolic dysfunction, normal E/E, Anasarca Multifactorial patient has 3+ proteinuria and diastolic dysfunction Pulmonary embolism (09/06/25) Right upper middle lobe segmental and subsegmental pulmonary embolism with small thrombus burden MRSA carrier COPD (chronic obstructive pulmonary disease) Multiple sclerosis Surgical History Surgical History (Updated 09/28/25 @ 22:31 by Analilia Stephenson DO) History of incision and drainage (07/26/25) Stage IV decubitus ulcer measuring 15 cm x 8 cm S/P percutaneous endoscopic gastrostomy (PEG) tube placement (09/21/25) History of hip surgery Right hip pinning June 2024 at [place] Hx of tonsillectomy Family History Family History Father Liver cancer Mother No problems noted. Sibling No problems noted. Social History Social History (Updated 09/29/25 @ 02:34 by Analilia Stephenson DO) Social History: The patient resides at [facility]. Code status: DNR/DNI (according to documentation from prior hospitalization) Healthcare power of trust and estates attorney: Odalys (daughter) Smoking packs per day: 1.5 Smoking cigarettes per day: 30.0 Years smoked: 50 Smoking pack-years: 75.00 Smoking status: Former smoker Second hand tobacco smoke exposure: Yes Alcohol intake: never Substance use: never Substance use type: unknown Lack of Transportation: No Lack of Food: Never True Current Housing: I Have Housing Concerned About Future Housing: No Difficulty Paying Gas/Electric Bills: No Difficulty Paying for Meds: No Currently Unemployed: No Education: High School Diploma/GED Difficulty w/ Childcare or Family Care: No Living arrangements: halfway Additional living arrangements comments: [facility]. Occupation/Education: retired Additional occupation/education comments: [employer] Gender identity (if verbalized by the patient): Male Spiritual care concerns: No Meds Home Medications and Allergies Home Medications ?Medication ?Instructions ?Recorded ?Confirmed ?Type ascorbic acid (vitamin C) 500 mg 500 mg PO DAILY Wound s 07/27/25 09/28/25 History capsule,extended release clobetasol 0.05 % topical cream 1 applic topical BID R DEBRA 07/27/25 09/28/25 History collagenase clostridium histo. 250 1 applic topical DA LETICIA 07/27/25 09/28/25 History unit/gram topical ointment (Santyl) geriatric multivitamin-min 1 cap PO DAILY Wounds 07/2709/28/25 History ipratropium 0.5 mg-albuterol 3 mg 3 ml inhalation Q6H PRN copd 07/27/25 09/28/25 History (2.5 mg base)/3 mL nebulization soln montelukast 10 mg tablet 10 mg feeding tube HS 09/28/25 History (Singulair) bisacodyl 10 mg rectal suppository 10 mg RECTAL QAM KS N Constipation 08/11/25 09/28/25 Rx #12 ea magnesium citrate (Citroma oral 296 ml feeding tube DA LETICIA PRN 09/06/25 09/28/25 History solution) constipation magnesium hydroxide 400 mg/5 mL 30 ml feeding tube SULEMAN LY PRN 09/06/25 09/28/25 History oral suspension (Milk of Magnesia) constipation sodium phosphates 19 gram-7 118 ml RECTAL DAILY PRN 09/28/25 History gram/118 mL enema (Fleet Enema) constipation apixaban 5 mg tablet (Eliquis) 5 mg feeding tube Q12HR 09/28/25 09/28/25 History dimethyl fumarate 120 mg 120 mg PO BID 09/28/2509/28 History capsule,delayed release fluticasone 250 mcg-salmeterol 50 2 inh inhalation Q12 H 09/28/25 09/28/25 History mcg/dose blistr powdr for inhalation (Advair Diskus) oxycodone 5 mg tablet 5 mg feeding tube Q6H PRN pa in 09/28/25 09/28/25 History Allergies Allergy/AdvReac Type Severity Reaction Status Date / Time No Known Allergies Allergy Verified 09/28/25 22:52 Vital Signs Vital Signs - 24 hr 09/28/25 16:41 09/28/25 17:31 09/28/25 18:06 Temperature 98.2 F Pulse Rate 102 H 108 H Respiratory Rate 25 H 25 H Blood Pressure 107/65 105/66 Pulse Oximetry 98 94 Oxygen Delivery Room Air Nasal Cannula Oxygen Flow Rate 2 Exam 2 Narrative: Weight 59.6 kg BMI 18.3 Const: Other: No acute distress, chronically ill-appearing, thin body habitus HENMT: Other: Mucous membranes are moist, no oral pharyngeal erythema poor dentition, mild temporal wasting, nasal cannula in place Eyes: Other: Pupils are equal and reactive, no scleral icterus Neck: Other: No JVD, no lymphadenopathy Resp: Other: He crackles throughout, no increased work of breathing Cardio: Other: Sinus tachycardia, 2+ pulses bilateral radial GI: Other: Firm with anasarca of the abdominal wall, distended, G-tube present, hypoactive bowel sounds, nontender, anasarca Skin: Other: Numerous decubitus ulcers in various stages. Please see nursing documentation for photos in size, some of the decubitus ulcers are still covered in eschar most notably the left hip, the wounds on the sacrum have areas of open wound but still have some areas of eschar as well, he of as other wounds on the left knight, right knight, right hip and left knee Neuro: Other: Patient is alert oriented in 1st and last name, month and day of , that he is at [facility], is confused as the current month in year and reason for admission to the hospital, speech is clear and he is conversational but his responses are is slowed Extrem: Other: Numerous wounds as discussed above, anasarca of the lower extremities Psych: Other: Pleasant and cooperative but confused, perseverating with tangential thought process, poor judgment and insight H&P: Results Labs Labs: Laboratory Tests 09/28/25 17:00 09/28/25 17:00 09/28/25 09/28/25 09/28/25 17:00 17:03 18:12 WBC 17.0 H RBC 3.94 L Hgb 11.1 L D Hct 36.8 L MCV 93.4 MCH 28.2 MCHC 30.2 L RDW 16.8 H Plt Count 489 H D MPV 10.2 Immature Gran % (Auto) 1.4 H Neut % (Auto) 68.7 Lymph % (Auto) 20.1 [place] % (Auto) 7.4 Eos % (Auto) 2.0 Baso % (Auto) 0.4 Lymph # (Auto) 3.42 H [place] # (Auto) 1.3 H Eos # (Auto) 0.3 Baso # (Auto) 0.1 Abs Immat Gran (auto) 0.23 H Absolute Neuts (auto) 11.7 H Absolute Nucleated RBC 0.000 Nucleated RBC % 0.0 Sodium 134 L Potassium 4.7 Chloride 99 Carbon Dioxide 34 H Anion Gap 1 L BUN 19 Creatinine 0.66 L Estim Creat Clear Calc 87 Estimated GFR > 60 Glucose 109 Lactic Acid 2.2 H Calcium 8.9 Total Bilirubin 0.3 AST 27 ALT 23 Alkaline Phosphatase 97 Total Protein 7.4 Albumin 3.5 Urine Color Dark yellow Urine Appearance Turbid H Urine pH 6.0 Ur Specific [place] 1.020 Urine Protein 3+ H Urine Glucose (UA) Negative Urine Ketones Trace H Ur Blood (Man) 3+ H Urine Nitrate Negative Urine Bilirubin 1+ H Urine Urobilinogen 0.2 Leukocyte Esterase Rfl 3+ H Urine RBC 51-100 H Urine WBC >100 Ur Squamous Epith Cells Few Urine Bacteria 1+ H 09/28/25 19:55 WBC RBC Hgb Hct MCV MCH MCHC RDW Plt Count MPV Immature Gran % (Auto) Neut % (Auto) Lymph % (Auto) [place] % (Auto) Eos % (Auto) Baso % (Auto) Lymph # (Auto) [place] # (Auto) Eos # (Auto) Baso # (Auto) Abs Immat Gran (auto) Absolute Neuts (auto) Absolute Nucleated RBC Nucleated RBC % Sodium Potassium Chloride Carbon Dioxide Anion Gap BUN Creatinine Estim Creat Clear Calc Estimated GFR Glucose Lactic Acid 0.8 Calcium Total Bilirubin AST ALT Alkaline Phosphatase Total Protein Albumin Urine Color Urine Appearance Urine pH Ur Specific [place] Urine Protein Urine Glucose (UA) Urine Ketones Ur Blood (Man) Urine Nitrate Urine Bilirubin Urine Urobilinogen Leukocyte Esterase Rfl Urine RBC Urine WBC Ur Squamous Epith Cells Urine Bacteria Impressions Chest X-Ray 09/28/25 17:41 IMPRESSION: 1. No acute pulmonary findings. EXAMINATION: CT abdomen pelvis w con DATE: 09/28/2025 18:52 INDICATION: Decubitus ulcer over the left hip. Leukocytosis. TECHNIQUE: Computed tomography (CT) of the abdomen and pelvis was performed 100 cc intravenous contrast. Automated exposure control and iterative reconstruction technique were employed. The dose-length product was 339.11 mGy-cm. COMPARISON: CT dated 09/06/2025. FINDINGS: Bases do not show acute findings. Lungs are emphysematous. Gastrostomy is noted in the epigastric region. No focal lesions of the liver and spleen. No evidence of small bowel obstruction. Fecal impaction of distal colon. Severe diffuse bladder wall thickening is noted. Decubitus ulcer over the sacrum and coccyx the midline, with the ulcer measuring 17 mm in depth. No localized abscess. Postsurgical changes of right hip. IMPRESSION: 1. No acute findings within the abdomen. Significant fecal impaction of the rectum. 2. 1.7 cm deep decubitus ulcer over the lower sacrum and coccyx. Test Date: 2025-09-06 15:23:36 Measurements Intervals [place] Rate: 129 P: 74 KS: 144 QRS: 63 QRSD: 75 T: 75 QT: 368 QTc: 540 Interpretive Statements SINUS TACHYCARDIA NONSPECIFIC T-WAVE ABNORMALITY ABNORMAL RHYTHM ECG Compared to ECG 07/26/2025 15:23:21 T-wave abnormality now present Assessment and Plan Assessment and plan (1) Sepsis: Qualifiers: Sepsis acute organ dysfunction status: without acute organ dysfunction Sepsis type: sepsis due to unspecified organism Qualified Code(s): A41.9 - Sepsis, unspecified organism Code(s): A41.9 - Sepsis, unspecified organism Status: Acute (2) Oropharyngeal dysphagia: Code(s): R13.12 - Dysphagia, oropharyngeal phase Status: Acute (3) Intravascular volume depletion: Code(s): E86.1 - Hypovolemia Status: Acute (4) Chronic hypoxic respiratory failure, on home oxygen therapy: Code(s): J96.11 - Chronic respiratory failure with hypoxia; Z99.81 - Dependence on supplemental oxygen Status: Acute (5) Fecal impaction in rectum: Code(s): K56.41 - Fecal impaction Status: Acute (6) Multiple sclerosis: Code(s): G35 - Multiple sclerosis Status: Chronic (7) Anasarca: Code(s): R60.1 - Generalized edema Status: Acute (8) Pulmonary embolism: Onset Date: 09/06/25 Qualifiers: Acute cor pulmonale presence: without acute cor pulmonale Chronicity: a cute Pulmonary embolism type: other Qualified Code(s): I26.99 - Other pulmonary embolism without acute cor pulmonale Code(s): I26.99 - Other pulmonary embolism without acute cor pulmonale Status: Acute (9) Pressure ulcers of skin of multiple topographic sites: Code(s): L89.90 - Pressure ulcer of unspecified site, unspecified stage Status: Acute (10) Failure to thrive in adult: Code(s): R62.7 - Adult failure to thrive Status: Acute (11) Chronic indwelling Mondragon catheter: Code(s): Z97.8 - Presence of other specified devices Status: Acute (12) Abnormal urinalysis: Code(s): R82.90 - Unspecified abnormal findings in urine Status: Acute (13) Positive result for methicillin resistant Staphylococcus aureus (MRSA) screening: Code(s): Z22.322 - Carrier or suspected carrier of Methicillin resistant Staphylococcus aureus Status: Acute Plan Patient met sepsis criteria with tachycardia, leukocytosis, lactic acidosis and tachypnea in the setting of suspected pneumonia or less likely urinary tract infection. Given the patient had a recent G-tube placed aspiration pneumonia is most likely pathology. Patient was started on empiric antibiotic therapy with Zosyn. Will change antibiotic to Unasyn. Blood cultures have been obtained and are pending. The patient does have an abnormal urinalysis with a chronic indwelling Mondragon catheter although findings do not suggest overt evidence of a UTI CT does demonstrate significant bladder wall thickening which appears stable on my review of today's imaging compared to last hospitalization. He did grew out a multidrug resistant organism during his last hospitalization that is resistant to Zosyn but again urinary tract infection is far lower on my differential given the patient's symptomatology with cough, tachypnea and purulent appearing sputum on presentation. Chest x-ray was relatively clear but of may be early in the infectious process. Blood cultures and urine cultures have been obtained and are pending. Will repeat CBC in a.m.. Patient also does have multiple decubitus ulcers but none of which appear to be acutely infected. Will order wound care consult for recommendations on dressings and management. 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 Repeat MRSA screen has been ordered for isolation purposes. It appears that the patient was discharged on oxygen to the halfway. The patient is only on 2 L oxygen where he was on 4 L at the time of discharge previously. No evidence of acute failure. Will continue supplemental oxygen and home inhalers with p.r.n. DuoNebs. Will also provide Acapella for pulmonary toilet. Patient has had a recent pulmonary embolism and is home Eliquis will be continued. Although some of the patient's leukocytosis may be due to intravascular volume depletion given a has ketones in his urine and elevated hemoglobin and elevated albumin and total protein of compared to the patient's baseline. He also has a relative increase in his creatinine from baseline but still not abnormal for person that would have a normal amount of muscle mass. However patient has a limited amount of muscle mass given his chronic debility multiple sclerosis. Patient did receive 2 L IV fluid resuscitation as per sepsis protocol. Will give 1 more additional L at 75 mL an hour then re-evaluate patient's fluid status in a.m.. Will repeat BMP in a.m. Imaging also demonstrates fecal impaction. Patient refused manual disimpaction when he was in the ER. Patient is resistant to having an enema. Subsequently will start the patient on lactulose b.i.d. for 2 days then re-evaluate. Will also add MiraLax daily. Patient does have chronic failure to thrive chronic protein calorie malnutrition. Will resume the patient's home tube feeds. Will also allow the patient oral feeds as tolerated with modified consistency of pureed diet with thickened liquids with aspiration precautions in place. The patient's Mondragon catheter was exchanged in the ER. Patient has been admitted as observation status. MEDICAL DECISION MAKING NARRATIVE -Spoke with the ED provider in detail regarding patient's evaluation, workup and management -Patient seen and examined at bedside -Collaborated with patient's nurse at the bedside in detail and addressed all concerns -Labs, electrolytes, radiology, investigations and test results personally reviewed and interpreted unless otherwise specified -ED/Consult/Nursing/Ancilliary notes on the chart reviewed and appreciated -applicable past medical records and labs were reviewed and unless stated otherwise. -Spoke with patient at bedside and diagnosis, plan of care was discussed and questions answered. Quality VTE Prophylaxis VTE prophylaxis: pharmacologic ordered (Continue home Eliquis.) Hospitalist MIPS Advance Care Plan I have confirmed that the patient's Advanced Care Plan is present, code status is documented, or surrogate decision maker is listed in patient medical record.: Yes Medication Reconciliation I have utilized all available resources to obtain, update and review the patients current medications (includes all prescriptions, OTC, herbals, cannabis, and nutritional supplements).: Yes
--- NOTE | 2025-09-28 23:22 | PHAR ---
Patient will be taking all PO meds via G-Tube.
--- NOTE | 2025-09-28 23:37 | PC.NURSE ---
Spoke with Raissa at [facility]. Patient is on a pureed, nectar thick diet. Also, takes Jevity 1.5 at 55mL/hour with 200mL q8h flushes via G-Tube.
--- NOTE | 2025-09-28 23:40 | PC.NURSE ---
LMOM for Odalys AGUIRRE) regarding code status. Asked for her to call back.
[2025-09-29] VITALS (16 sets, daily range): BP systolic 88–108; BP diastolic 56–68; PULSE 65–111; RESP 16–22; TEMP 36.7–37.2; O2SAT 93–100
[2025-09-29] MEDS: AMPICILLIN SODIUM/SULBACTAM 3 GM in SODIUM CHLORIDE 0.9% IV 100 ML 200 ML IVPB ×5 (00:29→23:01)
[2025-09-29] MEDS: SODIUM CHLORIDE 0.9% IV 1,000 ML 100 ML IV CONT (00:30)
[2025-09-29 02:05] LABS: MRSA (PCR) DETECTED (NOT DETECTE)
[2025-09-29] MEDS: IPRATROPIUM 0.5 MG/ALBUTEROL SULFATE 2.5 MG (BASE) AMPUL.NEB 3 ML INHALATION ×4 (02:21→20:40)
--- NOTE | 2025-09-29 04:42 | PC.NURSE ---
Spoke with patient's daughter/POA. Daughter is coming into town this weekend and will stop by the hospital. Daughter would like to make patient DNR and will fill out the appropriate POLST form and provide POA paperwork at that time.
[2025-09-29 05:18] LABS: Fractional Inspired Oxygen 28 %; HCO3 VBG 28.2 mEq/l (24.0-30.0); PCO2 VBG 36.9 mmHg (42.0-48.0); PO2 VBG 153.7 mmHg (35.0-45.0)
[2025-09-29 05:22] LABS: Hematocrit 28.7 % (42.0-52.0); Hemoglobin 8.6 g/dL (14.0-18.0); Immature Granulocyte Percent A 1.6 % (0-0.5); Lymphocytes Absolute Auto 3.10 K/mm3 (0.9-3.2); Mean Corpuscular HGB Conc 30.0 g/dl (32-36); Mean Corpuscular Hemoglobin 27.9 pg (26-34); Mean Corpuscular Volume 93.2 fl (80-100); Nucleated Red Blood Cells Absolute Auto 0.000 K/mm3 (0.0-0.012); Nucleated Red Blood Cells Perc 0.0 % (0.0-0.2); Platelet Count Result 396 k/mm3 (150-375); Red Blood Count 3.08 M/mm3 (4.6-6.20); White Blood Count 16.8 K/mm3 (4.5-10.0)
[2025-09-29 05:24] LABS: Liters per Minute 2.0 LPM; pH VBG 7.501 (7.300-7.400)
[2025-09-29 05:58] LABS: Anion Gap 0 mmol/L (4-12); Blood Urea Nitrogen 15 mg/dL (9-20); CRP 4.6 mg/dL (<1.0); Calcium 8.2 mg/dL (8.4-10.2); Carbon Dioxide 31 mmol/L (22-30); Chloride 102 mmol/L (98-107); Estimated CRCL calculation 93 ml/min; Estimated Glomerular Filt Rate > 60; Glucose 116 mg/dL (65-110); Potassium 3.8 mmol/L (3.4-5.0); Sodium 133 mmol/L (137-145)
[2025-09-29 06:00] LABS: Procalcitonin 0.2 ng/mL
--- NOTE | 2025-09-29 08:11 | PM.IMPN ---
Progress Note: A&P Assessment and Plan (1) Sepsis: Qualifiers: Sepsis acute organ dysfunction status: without acute organ dysfunction Sepsis type: sepsis due to unspecified organism Qualified Code(s): A41.9 - Sepsis, unspecified organism Code(s): A41.9 - Sepsis, unspecified organism Status: Acute Assessment and Plan: Patient met sepsis criteria with tachycardia, leukocytosis, lactic acidosis and tachypnea in the setting of suspected pneumonia or less likely urinary tract infection. Given the patient had a recent G-tube placed aspiration pneumonia is most likely pathology. -x1 dose of empiric Zosyn given in ED, changed to Unasyn, will continue -Pending BC -Chronic indwelling Mondragon catheter, changed in the ED. Urine yielding turbid appearance, 3+blood, 3+ leuks, 1+bacteria, pending UC ---He did grew out a multidrug resistant organism during his last hospitalization that is resistant to Zosyn but again urinary tract infection is far lower on my differential given the patient's symptomatology with cough, tachypnea and purulent appearing sputum on presentation. -Chest x-ray was relatively clear but of may be early in the infectious process -CRP elevated, will redraw in 2-3 days for trending -Lactic acid & procalcitonin WDL -VSS The patient's Mondragon catheter was exchanged in the ER. Although some of the patient's leukocytosis may be due to intravascular volume depletion given a has ketones in his urine and elevated hemoglobin and elevated albumin and total protein of compared to the patient's baseline. (2) Oropharyngeal dysphagia: Code(s): R13.12 - Dysphagia, oropharyngeal phase Status: Acute Assessment and Plan: G tube in place, tube feeds jevity 1.5 55ml/hr with q8 NS flushes -Pureed diet with thickened liquids via NH paperwork per nursing (3) Chronic hypoxic respiratory failure, on home oxygen therapy: Code(s): J96.11 - Chronic respiratory failure with hypoxia; Z99.81 - Dependence on supplemental oxygen Status: Acute Assessment and Plan: It appears that the patient was discharged on oxygen to the alf. The patient is only on 2 L oxygen where he was on 4 L at the time of discharge previously. No evidence of acute failure. Will continue supplemental oxygen and home inhalers with p.r.n. DuoNebs. Will also provide Acapella for pulmonary toilet. (4) Fecal impaction in rectum: Code(s): K56.41 - Fecal impaction Status: Acute Assessment and Plan: Via CT Imaging also demonstrates fecal impaction. Patient refused manual disimpaction when he was in the ER. Patient is resistant to having an enema. Subsequently will start the patient on lactulose b.i.d. for 2 days then re-evaluate. Will also add MiraLax daily. (5) Multiple sclerosis: Code(s): G35 - Multiple sclerosis Status: Chronic Assessment and Plan: Patient also does have multiple decubitus ulcers but none of which appear to be acutely infected. Will order wound care consult for recommendations on dressings and management. 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 (6) Pulmonary embolism: Onset Date: 09/06/25 Qualifiers: Acute cor pulmonale presence: without acute cor pulmonale Chronicity: acute Pulmonary embolism type: other Qualified Code(s): I26.99 - Other pulmonary embolism without acute cor pulmonale Code(s): I26.99 - Other pulmonary embolism without acute cor pulmonale Status: Acute Assessment and Plan: Patient has had a recent pulmonary embolism and is home Eliquis will be continued. (7) Failure to thrive in adult: Code(s): R62.7 - Adult failure to thrive Status: Acute Assessment and Plan: Patient does have chronic failure to thrive chronic protein calorie malnutrition. Will resume the patient's home tube feeds. Will also allow the patient oral feeds as tolerated with modified consistency of pureed diet with thickened liquids with aspiration precautions in place. (8) Abnormal urinalysis: Code(s): R82.90 - Unspecified abnormal findings in urine Status: Acute Assessment and Plan: The patient's Mondragon catheter was exchanged in the ER. UC pending Plan MRSA+, continue mupirocin applications Time Spent With Patient Time: 40 Subjective Date/time seen: 09/29/25 1205 Interval history: Pt sleeping lying in bed upon my arrival. Pt arousable to voice. Pt reports only weakness as a sx. Pt denies SOB, cough, CP, or any other sx. Review of Systems Review of Systems: All systems reviewed & are unremarkable except as noted in HPI and below Exam Narrative: Weight 59.6 kg BMI 18.3 Const: Other: No acute distress, chronically ill-appearing, thin body habitus HENMT: Other: Mucous membranes are tacky, no oral pharyngeal erythema poor dentition, mild temporal wasting, nasal cannula in place Eyes: Other: Pupils are equal and reactive, no scleral icterus Neck: Other: No JVD, no lymphadenopathy Resp: Other: Diminished BS throughout, no increased work of breathing but mildly tachypneic Cardio: Rate: regular rate Rhythm: regular rhythm Other: 2+ pulses bilateral radial GI: Other: Firm with anasarca of the abdominal wall, distended, G-tube present, hypoactive bowel sounds, nontender Skin: Other: Numerous decubitus ulcers in various stages. Please see nursing documentation for photos in size, some of the decubitus ulcers are still covered in eschar most notably the left hip, the wounds on the sacrum have areas of open wound but still have some areas of eschar as well, he of as other wounds on the left knight, right knight, right hip and left knee Neuro: Other: A&O x4 Extrem: Other: Numerous wounds as discussed above, anasarca of the lower extremities Psych: Other: Pleasant and cooperative but confused, perseverating with tangential thought process, poor judgment and insight Objective Data Vital Signs Vital Signs: Vital Signs - 24 hr 09/28/25 16:41 09/28/25 17:31 09/28/25 18:06 Temperature 98.2 F Pulse Rate 102 H 108 H Respiratory Rate 25 H 25 H Blood Pressure 107/65 105/66 Pulse Oximetry 98 94 Oxygen Delivery Room Air Nasal Cannula Oxygen Flow Rate 2 09/28/25 22:00 09/28/25 23:14 09/29/25 02:21 Temperature 98.1 F Pulse Rate 112 H 112 H 105 H Respiratory Rate 16 16 22 H Blood Pressure 109/62 Pulse Oximetry 91 91 Oxygen Delivery Nasal Cannula Oxygen Flow Rate 2 09/29/25 02:26 09/29/25 05:00 09/29/25 05:59 Temperature 98.1 F Pulse Rate 111 H 96 Respiratory Rate 22 H 18 Blood Pressure 96/62 L Pulse Oximetry 93 100 Oxygen Delivery Nasal Cannula Oxygen Flow Rate 2 Intake/Output Intake/Output: Intake & Output 09/26/25 09/27/25 09/28/25 09/29/25 23:59 23:59 23:59 23:59 Intake Total 2050 200 Output Total 450 Balance 0 -250 Meds/Results Medications: Active Medications Generic Name Dose Route Start Last Admin Trade Name Freq PRN Reason Stop Dose Admin Albuterol/Ipratropium 3 ml 09/29/25 02:00 09/29/25 02:21 Ipratropium 0.5 Mg/Albuterol Sulfate 2.5 Mg (Base) Ampul.Neb 3 Ml INHALATION 3 ml Q6HRT [facility] Administration Apixaban 5 mg 09/29/25 09:00 Apixaban 5 Mg Tablet FEED TUBE Q12HR MICAH Bisacodyl 10 mg 09/29/25 02:24 Bisacodyl 10 Mg Suppository RECTAL QAM PRN Constipation Clobetasol Propionate 1 applic 09/29/25 09:00 Clobetasol Propionate 0.05% Cream 15 Gm TOPICAL BID MICAH Collagenase 1 applic 09/29/25 09:00 Collagenase Oint 30 Gm Tube TOPICAL DAILY [facility] Ampicillin Sodium/Sulbactam 100 mls @ 200 mls/hr 09/29/25 00:00 09/29/25 06:33 Sodium 3 gm/ Sodium Chloride IVPB Infused Q6H [facility] Infusion Sodium Chloride 1,000 mls @ 100 mls/hr 09/28/25 23:15 09/29/25 00:30 Normal Saline Iv IV CONT 09/29/25 09:14 100 mls/hr .Q10H [facility] Administration Lactulose 20 gm 09/29/25 09:00 Lactulose 20 Gm/30 Ml Udc FEED TUBE 10/01/25 08:59 BID [facility] Montelukast Sodium 10 mg 09/29/25 21:00 Montelukast Sodium 10 Mg Tablet FEED TUBE HS [facility] Multivitamins Therapeutic 1 tablet 09/29/25 09:00 Multivitamins Therapeutic Tab (*Bkc) FEED TUBE QAM [facility] Mupirocin 1 applic 09/29/25 09:00 Mupirocin 2% Oint 22 Gm Tube EACH NARE 10/03/25 21:01 Q12HR [facility] Oxycodone HCl 5 mg 09/29/25 02:24 Oxycodone Hcl (*Crx) 5 Mg Tab Ir FEED TUBE Q6H PRN pain 7-10 Fluticasone/Salmeterol 2 puff 09/29/25 08:00 Fluticasone/Salmeterol 115-21 Mcg Inhaler 1 Puff INHALATION Q12HRT [facility] Radiology Results: ITS Impressions Chest X-Ray 09/28/25 17:41 IMPRESSION: 1. No acute pulmonary findings. Abdomen/Pelvis CT 09/28/25 18:56 IMPRESSION: 1. No acute findings within the abdomen. Significant fecal impaction of the rectum. 2. 1.7 cm deep decubitus ulcer over the lower sacrum and coccyx. Labs Labs: Laboratory Results - last 24 hr 09/28/25 09/28/25 09/28/25 17:00 17:03 18:12 WBC 17.0 H RBC 3.94 L Hgb 11.1 L D Hct 36.8 L MCV 93.4 MCH 28.2 MCHC 30.2 L RDW 16.8 H Plt Count 489 H D MPV 10.2 Immature Gran % (Auto) 1.4 H Neut % (Auto) 68.7 Lymph % (Auto) 20.1 Murray % (Auto) 7.4 Eos % (Auto) 2.0 Baso % (Auto) 0.4 Lymph # (Auto) 3.42 H Murray # (Auto) 1.3 H Eos # (Auto) 0.3 Baso # (Auto) 0.1 Abs Immat Gran (auto) 0.23 H Absolute Neuts (auto) 11.7 H Absolute Nucleated RBC 0.000 Nucleated RBC % 0.0 VBG pH VBG pCO2 VBG pO2 VBG HCO3 O2 Delivery Device O2 Liters/Min FiO2 Sodium 134 L Potassium 4.7 Chloride 99 Carbon Dioxide 34 H Anion Gap 1 L BUN 19 Creatinine 0.66 L Estim Creat Clear Calc 87 Estimated GFR > 60 Glucose 109 POC Capillary Glucose Lactic Acid 2.2 H Calcium 8.9 Total Bilirubin 0.3 AST 27 ALT 23 Alkaline Phosphatase 97 C-Reactive Protein Total Protein 7.4 Albumin 3.5 Procalcitonin Urine Color Dark yellow Urine Appearance Turbid H Urine pH 6.0 Ur Specific [place] 1.020 Urine Protein 3+ H Urine Glucose (UA) Negative Urine Ketones Trace H Ur Blood (Man) 3+ H Urine Nitrate Negative Urine Bilirubin 1+ H Urine Urobilinogen 0.2 Leukocyte Esterase Rfl 3+ H Urine RBC 51-100 H Urine WBC >100 Ur Squamous Epith Cells Few Urine Bacteria 1+ H Nasal MRSA (PCR) 09/28/25 09/29/25 09/29/25 19:55 00:28 00:29 WBC RBC Hgb Hct MCV MCH MCHC RDW Plt Count MPV Immature Gran % (Auto) Neut % (Auto) Lymph % (Auto) [place] % (Auto) Eos % (Auto) Baso % (Auto) Lymph # (Auto) Murray # (Auto) Eos # (Auto) Baso # (Auto) Abs Immat Gran (auto) Absolute Neuts (auto) Absolute Nucleated RBC Nucleated RBC % VBG pH VBG pCO2 VBG pO2 VBG HCO3 O2 Delivery Device O2 Liters/Min FiO2 Sodium Potassium Chloride Carbon Dioxide Anion Gap BUN Creatinine Estim Creat Clear Calc Estimated GFR Glucose POC Capillary Glucose 124 H Lactic Acid 0.8 Calcium Total Bilirubin AST ALT Alkaline Phosphatase C-Reactive Protein Total Protein Albumin Procalcitonin Urine Color Urine Appearance Urine pH Ur Specific [place] Urine Protein Urine Glucose (UA) Urine Ketones Ur Blood (Man) Urine Nitrate Urine Bilirubin Urine Urobilinogen Leukocyte Esterase Rfl Urine RBC Urine WBC Ur Squamous Epith Cells Urine Bacteria Nasal MRSA (PCR) Detected A* 09/29/25 09/29/25 09/29/25 04:59 05:06 05:44 WBC 16.8 H RBC 3.08 L Hgb 8.6 L Hct 28.7 L MCV 93.2 MCH 27.9 MCHC 30.0 L RDW 16.6 H Plt Count 396 H MPV 10.3 Immature Gran % (Auto) 1.6 H Neut % (Auto) 69.9 Lymph % (Auto) 18.5 Murray % (Auto) 7.8 Eos % (Auto) 1.8 Baso % (Auto) 0.4 Lymph # (Auto) 3.10 Murray # (Auto) 1.3 H Eos # (Auto) 0.3 Baso # (Auto) 0.1 Abs Immat Gran (auto) 0.26 H Absolute Neuts (auto) 11.7 H Absolute Nucleated RBC 0.000 Nucleated RBC % 0.0 VBG pH 7.501 H* VBG pCO2 36.9 L VBG pO2 153.7 H VBG HCO3 28.2 O2 Delivery Device Nasal cannula O2 Liters/Min 2.0 FiO2 28 Sodium 133 L Potassium 3.8 Chloride 102 Carbon Dioxide 31 H Anion Gap 0 L BUN 15 Creatinine 0.55 L Estim Creat Clear Calc 93 Estimated GFR > 60 Glucose 116 H POC Capillary Glucose 116 H Lactic Acid Calcium 8.2 L Total Bilirubin AST ALT Alkaline Phosphatase C-Reactive Protein 4.6 H Total Protein Albumin Procalcitonin 0.2 Urine Color Urine Appearance Urine pH Ur Specific [place] Urine Protein Urine Glucose (UA) Urine Ketones Ur Blood (Man) Urine Nitrate Urine Bilirubin Urine Urobilinogen Leukocyte Esterase Rfl Urine RBC Urine WBC Ur Squamous Epith Cells Urine Bacteria Nasal MRSA (PCR) Quality VTE Prophylaxis VTE prophylaxis: pharmacologic ordered (Continue home Eliquis.)
[2025-09-29] MEDS: FLUTICASONE/SALMETEROL 115-21 MCG INHALER 1 PUFF 2 PUFF INHALATION ×2 (08:37→20:49)
[2025-09-29] MEDS: LACTULOSE 20 GM/30 ML UDC FEED TUBE ×2 (09:52→18:20)
[2025-09-29] MEDS: CLOBETASOL PROPIONATE 0.05% CREAM 15 GM 1 APPLIC TOPICAL ×2 (09:56→18:20)
[2025-09-29] MEDS: MUPIROCIN 2% OINT 22 GM TUBE 1 APPLIC EACH NARE ×2 (09:57→20:28)
[2025-09-29] MEDS: COLLAGENASE OINT 30 GM TUBE 1 APPLIC TOPICAL (09:59)
[2025-09-29] MEDS: MULTIVITAMINS THERAPEUTIC TAB (*BKC) 1 TABLET FEED TUBE (10:09)
[2025-09-29] MEDS: APIXABAN 5 MG TABLET FEED TUBE ×2 (10:09→20:27)
--- NOTE | 2025-09-29 11:34 | WPDNEURCNPN ---
Assessment and Plan Assessment and plan (1) Multiple sclerosis: Code(s): G35 - Multiple sclerosis Status: Chronic (2) Pulmonary embolism: Onset Date: 09/06/25 Qualifiers: Pulmonary embolism type: other Chronicity: acute Acute cor pulmonale presence: without acute cor pulmonale Qualified Code(s): I26.99 - Other pulmonary embolism without acute cor pulmonale Code(s): I26.99 - Other pulmonary embolism without acute cor pulmonale Status: Acute (3) Hypertension: Code(s): I10 - Essential (primary) hypertension Status: Acute (4) Oropharyngeal dysphagia: Code(s): R13.12 - Dysphagia, oropharyngeal phase Status: Acute (5) Chronic indwelling Mondragon catheter: Code(s): Z97.8 - Presence of other specified devices Status: Acute (6) Right foot ulcer: Code(s): L97.519 - Non-pressure chronic ulcer of other part of right foot with unspecified severity Status: Acute (7) COPD (chronic obstructive pulmonary disease): Qualifiers: COPD type: unspecified COPD Qualified Code(s): J44.9 - Chronic obstructive pulmonary disease, unspecified Code(s): J44.9 - Chronic obstructive pulmonary disease, unspecified Status: Chronic Plan The current problems are due to infection H are being addressed by the hospitalist team. With regard to neurologic status he was on Avonex but I do not see it being listed here at this time. Given the chronicity of his condition and current state I am not sure of disease modifying therapy are of any help. I shall be glad to address should there be any further questions from neurologic point of view. I do not see any recent MRI on the record either. However it will only be necessary if he has new neurologic symptoms. Consult date: 09/29/25 HPI: Bashir Gruber . is a 69 year old male With history of chronic multiple sclerosis was recently in the hospital and came back within 2 days of discharge. Patient is bedbound and has chronic sacral decubitus ulcers. He also diagnosed to have pulmonary embolism and was admitted to the hospital on 09/06/2025 with septic shock due to urinary tract infection. A G-tube was placed due to dysphagia and poor oral intake and he was discharged back to nursing facility on 09/23/2025. Repeat labs shown high white cell count. He is also followed of lactic acidosis and a tachycardia. He has had blood cultures drawn and IV fluids were given. Patient is not able to provide me much in the way of history but he does remember seeing my associates Dr. Hernandez and also previously Dr. Ortiz. no specific neurologic symptoms reported other than chronic disability. He has been Avonex as a disease modifying therapy for several years. Review of Systems Review of Systems: All systems reviewed & are unremarkable except as noted in HPI and below PMFSH Past Medical History Medical History (Updated 09/28/25 @ 22:51 by Analilia Stephenson DO) Oropharyngeal dysphagia Modified barium swallow 09/14/2025 patient started on pureed diet with thickened liquids G-tube was placed because patient was not taking enough nutrition orally Chronic hypoxic respiratory failure, on home oxygen therapy Hyperthyroidism With most recent TSH July 2025 normal patient is not on active treatment Former heavy tobacco smoker Diastolic heart failure Echocardiogram 07/26/2025: EF 60 65%, grade 1 diastolic dysfunction, normal E/E, Anasarca Multifactorial patient has 3+ proteinuria and diastolic dysfunction Pulmonary embolism (09/06/25) Right upper middle lobe segmental and subsegmental pulmonary embolism with small thrombus burden MRSA carrier COPD (chronic obstructive pulmonary disease) Multiple sclerosis Surgical History Surgical History (Updated 09/28/25 @ 22:31 by Analilia Stephenson DO) History of incision and drainage (07/26/25) Stage IV decubitus ulcer measuring 15 cm x 8 cm S/P percutaneous endoscopic gastrostomy (PEG) tube placement (09/21/25) History of hip surgery Right hip pinning June 2024 at [place] [facility] Hx of tonsillectomy Family History Family History Father Liver cancer Mother No problems noted. Sibling No problems noted. Social History Social History (Updated 09/29/25 @ 02:34 by Analilia Stephenson DO) Social History: The patient resides at [facility]. Code status: DNR/DNI (according to documentation from prior hospitalization) Healthcare power of attorney general: Odalys (daughter) Smoking packs per day: 1.5 Smoking cigarettes per day: 30.0 Years smoked: 50 Smoking pack-years: 75.00 Smoking status: Former smoker Second hand tobacco smoke exposure: Yes Alcohol intake: never Substance use: never Substance use type: unknown Lack of Transportation: No Lack of Food: Never True Current Housing: I Have Housing Concerned About Future Housing: No Difficulty Paying Gas/Electric Bills: No Difficulty Paying for Meds: No Currently Unemployed: No Education: High School Diploma/GED Difficulty w/ Childcare or Family Care: No [place] [facility] [place] arrangements comments[place] [facility] [place] [facility] [place]. Occupation/Education: retired Additional occupation/education comments: [employer] Gender identity (if verbalized by the patient): Male Spiritual care concerns: No Meds Home Medications and Allergies Home Medications ?Medication ?Instructions ?Recorded ?Confirmed ?Type ascorbic acid (vitamin C) 500 mg 500 mg PO DAILY Wounds 07/27/25 09/28/25 History capsule,extended release clobetasol 0.05 % topical cream 1 applic topical BID RASH 07/27/25 09/28/25 History collagenase clostridium histo. 250 1 applic topical DAILY 07/27/25 09/28/25 History unit/gram topical ointment (Santyl) geriatric multivitamin-min 1 cap PO DAILY Wounds 07/27/25 09/28/25 History ipratropium 0.5 mg-albuterol 3 mg 3 ml inhalation Q6H PRN copd 07/27/25 09/28/25 History (2.5 mg base)/3 mL nebulization soln montelukast 10 mg tablet 10 mg feeding tube HS 07/27/25 09/28/25 History (Singulair) bisacodyl 10 mg rectal suppository 10 mg RECTAL QAM PRN Constipation 08/11/25 09/28/25 Rx #12 ea magnesium citrate (Citroma oral 296 ml feeding tube DAILY PRN 09/06/25 09/28/25 History solution) constipation magnesium hydroxide 400 mg/5 mL 30 ml feeding tube DAILY PRN 09/06/25 09/28/25 History oral suspension (Milk of Magnesia) constipation sodium phosphates 19 gram-7 118 ml RECTAL DAILY PRN 09/06/25 09/28/25 History gram/118 mL enema (Fleet Enema) constipation apixaban 5 mg tablet (Eliquis) 5 mg feeding tube Q12HR 09/28/25 09/28/25 History dimethyl fumarate 120 mg 120 mg PO BID 09/28/25 09/28/25 History capsule,delayed release fluticasone 250 mcg-salmeterol 50 2 inh inhalation Q12H 09/28/25 09/28/25 History mcg/dose blistr powdr for inhalation (Advair Diskus) oxycodone 5 mg tablet 5 mg feeding tube Q6H PRN pain 09/28/25 09/28/25 History Allergies Allergy/AdvReac Type Severity Reaction Status Date / Time No Known Allergies Allergy Verified 09/28/25 22:52 Vital Signs Vital Signs - 24 hr 09/28/25 16:41 09/28/25 17:31 09/28/25 18:06 Temperature 98.2 F Pulse Rate 102 H 108 H Respiratory Rate 25 H 25 H Blood Pressure 107/65 105/66 Pulse Oximetry 98 94 Oxygen Delivery Room Air Nasal Cannula Oxygen Flow Rate 2 09/28/25 22:00 09/28/25 23:14 09/29/25 02:21 Temperature 98.1 F Pulse Rate 112 H 112 H 105 H Respiratory Rate 16 16 22 H Blood Pressure 109/62 Pulse Oximetry 91 91 Oxygen Delivery Nasal Cannula Oxygen Flow Rate 2 09/29/25 02:26 09/29/25 05:00 09/29/25 05:59 Temperature 98.1 F Pulse Rate 111 H 96 Respiratory Rate 22 H 18 Blood Pressure 96/62 L Pulse Oximetry 93 100 Oxygen Delivery Nasal Cannula Oxygen Flow Rate 2 09/29/25 08:00 09/29/25 08:47 Temperature Pulse Rate 65 Respiratory Rate 20 Blood Pressure Pulse Oximetry 100 Oxygen Delivery Nasal Cannula Oxygen Flow Rate 2 Exam Narrative: The patient is awake and alert and able to talk and does remember seeing Dr. Ortiz. No aphasia. Exam of cranial nerves you testing shows his right beating nystagmus and also esotropia of the right eye. No nystagmus when looking to the left side. Other cranial nerves were grossly within normal limits. Motor system moving right upper limb much better than the left upper limb. Does not want to move his lower limbs which also in questions prevent decubitus ulcers. No involuntary movements are seen. Results Labs 09/29/25 04:59 09/29/25 04:59 Labs: Short CBC 09/28/25 09/29/25 Range/Units 17:00 04:59 WBC 17.0 H 16.8 H (4.5-10.0) K/mm3 Hgb 11.1 L D 8.6 L (14.0-18.0) g/dL Hct 36.8 L 28.7 L (42.0-52.0) % Plt Count 489 H D 396 H (150-375) k/mm3 BMP 09/28/25 09/29/25 17:00 04:59 Sodium 134 L 133 L Potassium 4.7 3.8 Chloride 99 102 Carbon Dioxide 34 H 31 H BUN 19 15 Creatinine 0.66 L 0.55 L Glucose 109 116 H Calcium 8.9 8.2 L Liver Function 09/28/25 Range/Units 17:00 Total Bilirubin 0.3 (0.2-1.3) mg/dL AST 27 (17-59) U/L ALT 23 (6-50) U/L Alkaline Phosphatase 97 (38-126) U/L Albumin 3.5 (3.5-5.1) g/dL Urine 09/28/25 Range/Units 18:12 Urine Color Dark yellow (Yellow) Urine Appearance Turbid H (Clear) Urine pH 6.0 (5.0-9.0) Ur Specific [place] 1.020 (1.001-1.035) Urine Protein 3+ H (Negative) mg/dL Urine Glucose (UA) Negative (Negative) mg/dL
[2025-09-29] MEDS: LACTATED RINGERS 1,000 ML 75 ML IV CONT ×2 (13:08→22:05)
[2025-09-29] MEDS: LACTATED RINGERS 500 ML IV CONT (14:17)
[2025-09-29] MEDS: MONTELUKAST SODIUM 10 MG TABLET FEED TUBE (20:27)
[2025-09-30] VITALS (17 sets, daily range): BP systolic 93–121; BP diastolic 52–84; PULSE 78–124; RESP 14–20; TEMP 36.4–37.6; O2SAT 92–100; BMI 18.3
[2025-09-30] MEDS: IPRATROPIUM 0.5 MG/ALBUTEROL SULFATE 2.5 MG (BASE) AMPUL.NEB 3 ML INHALATION ×4 (02:40→20:25)
[2025-09-30] MEDS: AMPICILLIN SODIUM/SULBACTAM 3 GM in SODIUM CHLORIDE 0.9% IV 100 ML 200 ML IVPB ×3 (05:05→17:08)
[2025-09-30 05:46] LABS: Hematocrit 24.5 % (42.0-52.0); Hemoglobin 7.3 g/dL (14.0-18.0); Immature Granulocyte Percent A 1.3 % (0-0.5); Lymphocytes Absolute Auto 2.89 K/mm3 (0.9-3.2); Mean Corpuscular HGB Conc 29.8 g/dl (32-36); Mean Corpuscular Hemoglobin 28.0 pg (26-34); Mean Corpuscular Volume 93.9 fl (80-100); Nucleated Red Blood Cells Absolute Auto 0.000 K/mm3 (0.0-0.012); Nucleated Red Blood Cells Perc 0.0 % (0.0-0.2); Platelet Count Result 365 k/mm3 (150-375); Red Blood Count 2.61 M/mm3 (4.6-6.20); White Blood Count 15.0 K/mm3 (4.5-10.0)
[2025-09-30 06:16] LABS: Hypochromasia 2+; Schistocytes Occasional
[2025-09-30 06:18] LABS: Alanine Aminotransferase 16 U/L (6-50); Albumin Level 2.4 g/dL (3.5-5.1); Alkaline Phosphatase 78 U/L (38-126); Anion Gap 1 mmol/L (4-12); Aspartate Amino Transferase 21 U/L (17-59); Bilirubin,Total 0.2 mg/dL (0.2-1.3); Blood Urea Nitrogen 10 mg/dL (9-20); Calcium 7.9 mg/dL (8.4-10.2); Carbon Dioxide 30 mmol/L (22-30); Chloride 105 mmol/L (98-107); Estimated CRCL calculation 94 ml/min; Estimated Glomerular Filt Rate > 60; Glucose 138 mg/dL (65-110); Potassium 3.4 mmol/L (3.4-5.0); Sodium 136 mmol/L (137-145); Total Protein 5.3 g/dL (6.3-8.2)
[2025-09-30] MEDS: FLUTICASONE/SALMETEROL 115-21 MCG INHALER 1 PUFF 2 PUFF INHALATION ×2 (07:27→20:25)
--- NOTE | 2025-09-30 08:33 | PM.IMPN ---
Progress Note: A&P Assessment and Plan (1) Sepsis: Qualifiers: Sepsis acute organ dysfunction status: without acute organ dysfunction Sepsis type: sepsis due to unspecified organism Qualified Code(s): A41.9 - Sepsis, unspecified organism Code(s): A41.9 - Sepsis, unspecified organism Status: Acute Assessment and Plan: Patient met sepsis criteria with tachycardia, leukocytosis, lactic acidosis and tachypnea in the setting of suspected pneumonia or less likely urinary tract infection. Given the patient had a recent G-tube placed aspiration pneumonia is most likely pathology. -x1 dose of empiric Zosyn given in ED, changed to Unasyn, will continue -Pending BC -Chronic indwelling Mondragon catheter, changed in the ED. Urine yielding turbid appearance, 3+blood, 3+ leuks, 1+bacteria UC prelim gram neg baccilli isolated, pending final & sensitivities ---He did grew out a multidrug resistant organism during his last hospitalization that is resistant to Zosyn but again urinary tract infection is far lower on my differential given the patient's symptomatology with cough, tachypnea and purulent appearing sputum on presentation. -Chest x-ray was relatively clear but of may be early in the infectious process -CRP elevated, will redraw in 2-3 days for trending -Lactic acid & procalcitonin WDL -One instance of tachycardia (109bpm) and one instance of hypotension (93/55) this AM, will continue to monitor. The patient's Mondragon catheter was exchanged in the ER. Although some of the patient's leukocytosis may be due to intravascular volume depletion given a has ketones in his urine and elevated hemoglobin and elevated albumin and total protein of compared to the patient's baseline. Wound team saw pt today with thorough assessment, please see note. (2) Oropharyngeal dysphagia: Code(s): R13.12 - Dysphagia, oropharyngeal phase Status: Acute Assessment and Plan: G tube in place, tube feeds jevity 1.5 55ml/hr with q4 NS flushes, dietary following. Per RN, pt nml rate of TF 150 ml/hr but since still on LR IVF, will remain on 55 ml/hr per dietary. -Pureed diet with thickened liquids via NH paperwork per nursing (3) Chronic hypoxic respiratory failure, on home oxygen therapy: Code(s): J96.11 - Chronic respiratory failure with hypoxia; Z99.81 - Dependence on supplemental oxygen Status: Acute Assessment and Plan: It appears that the patient was discharged on oxygen to the long term. The patient is only on 2 L oxygen where he was on 4 L at the time of discharge previously. No evidence of acute failure. Will continue supplemental oxygen and home inhalers with p.r.n. DuoNebs. Will also provide Acapella for pulmonary toilet. -Pt refusing to deep breathe today due to pain (4) Fecal impaction in rectum: Code(s): K56.41 - Fecal impaction Status: Acute Assessment and Plan: Via CT Imaging also demonstrates fecal impaction. Patient refused manual disimpaction when he was in the ER. Patient is resistant to having an enema. Subsequently will start the patient on lactulose b.i.d. for 2 days then re-evaluate (x2 days on 10/01). Will also add MiraLax daily. Bisaxodyl supp PRN -Multiple large BMs today, D/C lactulose (5) Multiple sclerosis: Code(s): G35 - Multiple sclerosis Status: Chronic Assessment and Plan: Patient also does have multiple decubitus ulcers but none of which appear to be acutely infected. Will order wound care consult for recommendations on dressings and management. 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 (6) Pulmonary embolism: Onset Date: 09/06/25 Qualifiers: Acute cor pulmonale presence: without acute cor pulmonale Chronicity: acute Pulmonary embolism type: other Qualified Code(s): I26.99 - Other pulmonary embolism without acute cor pulmonale Code(s): I26.99 - Other pulmonary embolism without acute cor pulmonale Status: Acute Assessment and Plan: Patient has had a recent pulmonary embolism and is home Eliquis will be continued. (7) Failure to thrive in adult: Code(s): R62.7 - Adult failure to thrive Status: Acute Assessment and Plan: Patient does have chronic failure to thrive chronic protein calorie malnutrition. Will resume the patient's home tube feeds. Will also allow the patient oral feeds as tolerated with modified consistency of pureed diet with thickened liquids with aspiration precautions in place. (8) Abnormal urinalysis: Code(s): R82.90 - Unspecified abnormal findings in urine Status: Acute Assessment and Plan: The patient's Mondragon catheter was exchanged in the ER. UC final pending, prelim gram neg bacilli isolated Plan MRSA+, continue mupirocin applications, continue abx for UTI. Pending discussion with daughter for potential hospice. Time Spent With Patient Time: 45 Subjective Date/time seen: 09/30/25 1135 Interval history: Pt sleeping lying in bed upon my arrival. Pt arousable to voice. Pt reports only weakness as a sx and not being able to take a deep breath. Had an extensive conversation with pt's Odalys MATHUR (daughter). She lives in [place] and is planning to drive up this evening after she gets off of work. She is planning on making a decision this week while she is in town about her father's status and is heavily favoring hospice for his comfort. CC to f/u with her to relay options. She will be at the hospital tomorrow if not the next day, depending on weather. Review of Systems Review of Systems: All systems reviewed & are unremarkable except as noted in HPI and below Exam Narrative: Weight 59.6 kg BMI 18.3 Const: Other: No acute distress, chronically ill-appearing, thin body habitus HENMT: Other: Mucous membranes are tacky, no oral pharyngeal erythema poor dentition, mild temporal wasting, nasal cannula in place Eyes: Other: Pupils are equal and reactive, no scleral icterus Neck: Other: No JVD, no lymphadenopathy Resp: Other: Diminished BS throughout, poor effort from pt due to pain. No increased work of breathing but mildly tachypneic. Cardio: Rate: regular rate Rhythm: regular rhythm Other: 2+ pulses bilateral radial GI: Other: Firm with anasarca of the abdominal wall, distended, G-tube present, hypoactive bowel sounds, nontender Skin: Other: Numerous decubitus ulcers in various stages. Please see nursing documentation for photos in size, some of the decubitus ulcers are still covered in eschar most notably the left hip, the wounds on the sacrum have areas of open wound but still have some areas of eschar as well, he of as other wounds on the left knight, right knight, right hip and left knee Neuro: Other: A&O x4 Extrem: Other: Numerous wounds as discussed above, anasarca of the lower extremities Psych: Other: Pleasant and cooperative but confused, perseverating with tangential thought process, poor judgment and insight Objective Data Vital Signs Vital Signs: Vital Signs - 24 hr 09/29/25 08:47 09/29/25 12:00 09/29/25 14:18 Temperature 98.3 F Pulse Rate 65 95 93 Respiratory Rate 20 16 20 Blood Pressure 94/60 L Pulse Oximetry 98 Oxygen Delivery Oxygen Flow Rate 09/29/25 14:20 09/29/25 14:27 09/29/25 14:48 Temperature Pulse Rate 93 Respiratory Rate 20 Blood Pressure 88/56 L 105/65 Pulse Oximetry Oxygen Delivery Oxygen Flow Rate 09/29/25 16:00 09/29/25 20:00 09/29/25 20:27 Temperature 98.7 F 98.9 F Pulse Rate 102 H 105 H Respiratory Rate 18 20 Blood Pressure 104/62 108/68 Pulse Oximetry 93 93 93 Oxygen Delivery Nasal Cannula Oxygen Flow Rate 2 09/29/25 20:50 09/29/25 21:00 09/30/25 00:00 Temperature 99.6 F Pulse Rate 87 88 124 H Respiratory Rate 20 20 18 Blood Pressure 118/65 Pulse Oximetry 100 Oxygen Delivery Oxygen Flow Rate 09/30/25 01:02 09/30/25 02:40 09/30/25 02:50 Temperature 97.9 F Pulse Rate 115 H 78 88 Respiratory Rate 20 20 Blood Pressure Pulse Oximetry Oxygen Delivery Oxygen Flow Rate 09/30/25 04:00 09/30/25 07:27 09/30/25 07:27 Temperature 98.7 F Pulse Rate 113 H 86 Respiratory Rate 20 20 Blood Pressure 93/55 L Pulse Oximetry 97 94 Oxygen Delivery Nasal Cannula Oxygen Flow Rate 2 Intake/Output Intake/Output: Intake & Output 09/27/25 09/28/25 09/29/25 09/30/25 23:59 23:59 23:59 23:59 Intake Total 20491.3 Output Total 950 350 Balance 2049 1141.3 -350 Meds/Results Medications: Active Medications Generic Name Dose Route Start Last Admin Trade Name Freq PRN Reason Stop Dose Admin Albuterol/Ipratropium 3 ml 09/29/25 02:00 09/30/25 07:27 Ipratropium 0.5 Mg/Albuterol Sulfate 2.5 Mg (Base) Ampul.Neb 3 Ml INHALATION 3 ml Q6HRT MICAH Administration Apixaban 5 mg 09/29/25 09:00 09/29/25 20:27 Apixaban 5 Mg Tablet FEED TUBE 5 mg Q12HR MICAH Administration Bisacodyl 10 mg 09/29/25 02:24 Bisacodyl 10 Mg Suppository RECTAL QAM PRN Constipation Clobetasol Propionate 1 applic 09/29/25 09:00 09/29/25 18:20 Clobetasol Propionate 0.05% Cream 15 Gm TOPICAL 1 applic BID MICAH Administration Collagenase 1 applic 09/29/25 09:00 09/29/25 09:59 Collagenase Oint 30 Gm Tube TOPICAL 1 applic DAILY MICAH Administration Ampicillin Sodium/Sulbactam 100 mls @ 200 mls/hr 09/29/25 00:00 09/30/25 05:05 Sodium 3 gm/ Sodium Chloride IVPB 200 mls/hr Q6H MICAH Administration Lactated Ringer's 1,000 mls @ 75 mls/hr 09/29/25 12:25 09/29/25 22:05 Lr - Lactated Ringers Iv IV CONT 75 mls/hr .[id number] MICAH Administration Lactulose 20 gm 09/29/25 09:00 09/29/25 18:20 Lactulose 20 Gm/30 Ml Udc FEED TUBE 10/01/25 08:59 20 gm BID MICAH Administration Montelukast Sodium 10 mg 09/29/25 21:00 09/29/25 20:27 Montelukast Sodium 10 Mg Tablet FEED TUBE 10 mg HS MICAH Administration Multivitamins Therapeutic 1 tablet 09/29/25 09:00 09/29/25 10:09 Multivitamins Therapeutic Tab (*Bkc) FEED TUBE 1 tablet QAM MICAH Administration Mupirocin 1 applic 09/29/25 09:00 09/29/25 20:28 Mupirocin 2% Oint 22 Gm Tube EACH NARE 10/03/25 21:01 1 applic Q12HR MICAH Administration Oxycodone HCl 5 mg 09/29/25 02:24 Oxycodone Hcl (*Crx) 5 Mg Tab Ir FEED TUBE Q6H PRN pain 7-10 Fluticasone/Salmeterol 2 puff 09/29/25 08:00 09/30/25 07:27 Fluticasone/Salmeterol 115-21 Mcg Inhaler 1 Puff INHALATION 2 puff Q12HRT MICAH Administration Radiology Results: ITS Impressions Chest X-Ray 09/28/25 17:41 IMPRESSION: 1. No acute pulmonary findings. Abdomen/Pelvis CT 09/28/25 18:56 IMPRESSION: 1. No acute findings within the abdomen. Significant fecal impaction of the rectum. 2. 1.7 cm deep decubitus ulcer over the lower sacrum and coccyx. Labs Labs: Laboratory Results - last 24 hr 09/29/25 09/29/25 09/30/25 12:30 18:15 00:52 WBC RBC Hgb Hct MCV MCH MCHC RDW Plt Count MPV Immature Gran % (Auto) Neut % (Auto) Lymph % (Auto) [place] % (Auto) Eos % (Auto) Baso % (Auto) Lymph # (Auto) [place] # (Auto) Eos # (Auto) Baso # (Auto) Abs Immat Gran (auto) Absolute Neuts (auto) Absolute Nucleated RBC Band Neutrophils % Nucleated RBC % Platelet Estimate Hypochromasia Schistocytes Sodium Potassium Chloride Carbon Dioxide Anion Gap BUN Creatinine Estim Creat Clear Calc Estimated GFR Glucose POC Capillary Glucose 116 H 111 H 138 H Calcium Total Bilirubin AST ALT Alkaline Phosphatase Total Protein Albumin 09/30/25 09/30/25 05:18 05:35 WBC 15.0 H RBC 2.61 L Hgb 7.3 L Hct 24.5 L MCV 93.9 MCH 28.0 MCHC 29.8 L RDW 16.6 H Plt Count 365 MPV 9.7 Immature Gran % (Auto) 1.3 H Neut % (Auto) 68.8 Lymph % (Auto) 19.3 [place] % (Auto) 7.5 Eos % (Auto) 2.8 Baso % (Auto) 0.3 Lymph # (Auto) 2.89 [place] # (Auto) 1.1 H Eos # (Auto) 0.4 H Baso # (Auto) 0.1 Abs Immat Gran (auto) 0.20 H Absolute Neuts (auto) 10.3 H Absolute Nucleated RBC 0.000 Band Neutrophils % Not Reportable Nucleated RBC % 0.0 Platelet Estimate Slightly increased Hypochromasia 2+ Schistocytes Occasional Sodium 136 L Potassium 3.4 Chloride 105 Carbon Dioxide 30 Anion Gap 1 L BUN 10 D Creatinine 0.54 L Estim Creat Clear Calc 94 Estimated GFR > 60 Glucose 138 H POC Capillary Glucose 160 H Calcium 7.9 L Total Bilirubin 0.2 AST 21 ALT 16 Alkaline Phosphatase 78 Total Protein 5.3 L Albumin 2.4 L Quality VTE Prophylaxis VTE prophylaxis: pharmacologic ordered (Continue home Eliquis.)
[2025-09-30] MEDS: APIXABAN 5 MG TABLET FEED TUBE ×2 (08:36→20:39)
[2025-09-30] MEDS: MULTIVITAMINS THERAPEUTIC TAB (*BKC) 1 TABLET FEED TUBE (08:36)
[2025-09-30] MEDS: CLOBETASOL PROPIONATE 0.05% CREAM 15 GM 1 APPLIC TOPICAL (08:37)
[2025-09-30] MEDS: MUPIROCIN 2% OINT 22 GM TUBE 1 APPLIC EACH NARE ×2 (08:38→20:40)
[2025-09-30] MEDS: oxyCODONE HCL (*CRX) 5 MG TAB IR FEED TUBE ×2 (09:01→15:08)
[2025-09-30] MEDS: LACTATED RINGERS 1,000 ML 75 ML IV CONT (17:08)
[2025-09-30] MEDS: MONTELUKAST SODIUM 10 MG TABLET FEED TUBE (20:39)
[2025-09-30] MEDS: AMPICILLIN SODIUM/SULBACTAM 3 GM in SODIUM CHLORIDE 0.9% IV 100 ML IVPB (23:59)
[2025-10-01] VITALS (15 sets, daily range): BP systolic 98–128; BP diastolic 51–78; PULSE 79–113; RESP 16–20; TEMP 36.3–36.9; O2SAT 92–94
[2025-10-01] MEDS: oxyCODONE HCL (*CRX) 5 MG TAB IR FEED TUBE ×3 (00:16→23:16)
[2025-10-01] MEDS: LACTATED RINGERS 1,000 ML 75 ML IV CONT ×2 (05:23→20:38)
[2025-10-01] MEDS: AMPICILLIN SODIUM/SULBACTAM 3 GM in SODIUM CHLORIDE 0.9% IV 100 ML IVPB ×4 (05:24→23:09)
[2025-10-01 06:36] LABS: Hematocrit 26.1 % (42.0-52.0); Hemoglobin 7.7 g/dL (14.0-18.0); Immature Granulocyte Percent A 1.1 % (0-0.5); Lymphocytes Absolute Auto 2.75 K/mm3 (0.9-3.2); Mean Corpuscular HGB Conc 29.5 g/dl (32-36); Mean Corpuscular Hemoglobin 28.1 pg (26-34); Mean Corpuscular Volume 95.3 fl (80-100); Nucleated Red Blood Cells Absolute Auto 0.000 K/mm3 (0.0-0.012); Nucleated Red Blood Cells Perc 0.0 % (0.0-0.2); Platelet Count Result 378 k/mm3 (150-375); Red Blood Count 2.74 M/mm3 (4.6-6.20); White Blood Count 12.8 K/mm3 (4.5-10.0)
[2025-10-01 06:55] LABS: Hypochromasia 2+
[2025-10-01 06:56] LABS: Anisocytosis 1+; Stomatocytes 1+
[2025-10-01 06:57] LABS: Schistocytes None Seen
[2025-10-01 07:00] LABS: Alanine Aminotransferase 14 U/L (6-50); Albumin Level 2.3 g/dL (3.5-5.1); Alkaline Phosphatase 70 U/L (38-126); Anion Gap 0 mmol/L (4-12); Aspartate Amino Transferase 17 U/L (17-59); Bilirubin,Total 0.2 mg/dL (0.2-1.3); Blood Urea Nitrogen 13 mg/dL (9-20); Calcium 8.0 mg/dL (8.4-10.2); Carbon Dioxide 34 mmol/L (22-30); Chloride 103 mmol/L (98-107); Estimated CRCL calculation 101 ml/min; Estimated Glomerular Filt Rate > 60; Glucose 107 mg/dL (65-110); Potassium 4.1 mmol/L (3.4-5.0); Sodium 137 mmol/L (137-145); Total Protein 5.3 g/dL (6.3-8.2)
[2025-10-01] MEDS: IPRATROPIUM 0.5 MG/ALBUTEROL SULFATE 2.5 MG (BASE) AMPUL.NEB 3 ML INHALATION ×3 (07:43→20:09)
[2025-10-01] MEDS: FLUTICASONE/SALMETEROL 115-21 MCG INHALER 1 PUFF 2 PUFF INHALATION (07:43)
--- NOTE | 2025-10-01 08:15 | PM.IMPN ---
Progress Note: A&P Assessment and Plan (1) Sepsis: Qualifiers: Sepsis acute organ dysfunction status: without acute organ dysfunction Sepsis type: sepsis due to unspecified organism Qualified Code(s): A41.9 - Sepsis, unspecified organism Code(s): A41.9 - Sepsis, unspecified organism Status: Acute Assessment and Plan: Patient met sepsis criteria with tachycardia, leukocytosis, lactic acidosis and tachypnea in the setting of suspected pneumonia or less likely urinary tract infection. Given the patient had a recent G-tube placed aspiration pneumonia is most likely pathology. -x1 dose of empiric Zosyn given in ED, changed to Unasyn, will continue -Pending BC -Chronic indwelling Mondragon catheter, changed in the ED. Urine yielding turbid appearance, 3+blood, 3+ leuks, 1+bacteria UC prelim gram neg baccilli isolated, pending final & sensitivities ---He did grew out a multidrug resistant organism during his last hospitalization that is resistant to Zosyn but again urinary tract infection is far lower on my differential given the patient's symptomatology with cough, tachypnea and purulent appearing sputum on presentation. -Chest x-ray was relatively clear but of may be early in the infectious process -CRP elevated, will redraw in 2-3 days for trending -Lactic acid & procalcitonin WDL -One instance of tachycardia (107bpm) and one instance of hypotension (98/51) this AM, will continue to monitor. -WBC continues to decline Although some of the patient's leukocytosis may be due to intravascular volume depletion given a has ketones in his urine and elevated hemoglobin and elevated albumin and total protein of compared to the patient's baseline. Wound team saw pt with thorough assessment, please see note. Overall pt feeling better. (2) Oropharyngeal dysphagia: Code(s): R13.12 - Dysphagia, oropharyngeal phase Status: Acute Assessment and Plan: G tube in place, tube feeds jevity 1.5 55ml/hr with q4 NS flushes, dietary following. Per RN, pt nml rate of TF 150 ml/hr but since still on LR IVF, will remain on 55 ml/hr per dietary. -Pureed diet with thickened liquids via NH paperwork per nursing (3) Chronic hypoxic respiratory failure, on home oxygen therapy: Code(s): J96.11 - Chronic respiratory failure with hypoxia; Z99.81 - Dependence on supplemental oxygen Status: Acute Assessment and Plan: It appears that the patient was discharged on oxygen to the senior care. The patient is only on 2 L oxygen where he was on 4 L at the time of discharge previously. No evidence of acute failure. Will continue supplemental oxygen and home inhalers with p.r.n. DuoNebs. Will also provide Acapella for pulmonary toilet. (4) Fecal impaction in rectum: Code(s): K56.41 - Fecal impaction Status: Acute Assessment and Plan: Via CT Imaging also demonstrates fecal impaction. Patient refused manual disimpaction when he was in the ER. Patient is resistant to having an enema. Subsequently will start the patient on lactulose b.i.d. for 2 days then re-evaluate (x2 days on 10/01). Will also add MiraLax daily. Bisaxodyl supp PRN -Multiple large BMs 09/30, D/C lactulose (5) Multiple sclerosis: Code(s): G35 - Multiple sclerosis Status: Chronic Assessment and Plan: Patient also does have multiple decubitus ulcers but none of which appear to be acutely infected. Will order wound care consult for recommendations on dressings and management. 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 (6) Pulmonary embolism: Onset Date: 09/06/25 Qualifiers: Acute cor pulmonale presence: without acute cor pulmonale Chronicity: acute Pulmonary embolism type: other Qualified Code(s): I26.99 - Other pulmonary embolism without acute cor pulmonale Code(s): I26.99 - Other pulmonary embolism without acute cor pulmonale Status: Acute Assessment and Plan: Patient has had a recent pulmonary embolism and is home Eliquis will be continued. (7) Failure to thrive in adult: Code(s): R62.7 - Adult failure to thrive Status: Acute Assessment and Plan: Patient does have chronic failure to thrive chronic protein calorie malnutrition. Will resume the patient's home tube feeds. Will also allow the patient oral feeds as tolerated with modified consistency of pureed diet with thickened liquids with aspiration precautions in place. (8) Abnormal urinalysis: Code(s): R82.90 - Unspecified abnormal findings in urine Status: Acute Assessment and Plan: The patient's Mondragon catheter was exchanged in the ER. UC final pending, prelim gram neg bacilli isolated (9) Severe malnutrition: Code(s): E43 - Unspecified severe protein-calorie malnutrition Status: Acute Assessment and Plan: See above. Plan MRSA+, continue mupirocin applications, continue abx for UTI. Pending discussion with daughter for potential hospice. Subjective Date/time seen: 10/01/25 1016 Interval history: Pt lying in bed upon my arrival. Pt denies any issues today, he feels as if he is back to baseline. Updated pt that his daughter is coming into town, he got emotional with this, he states that he has not seem her in a long time. Awaiting for her arrival to discuss further care. Continue to tx UTI and leukocytosis. Review of Systems Review of Systems: All systems reviewed & are unremarkable except as noted in HPI and below Exam Narrative: Weight 59.6 kg BMI 18.3 Const: Other: No acute distress, chronically ill-appearing, thin body habitus HENMT: Other: Mucous membranes are tacky, no oral pharyngeal erythema poor dentition, mild temporal wasting, nasal cannula in place Eyes: Other: Pupils are equal and reactive, no scleral icterus Neck: Other: No JVD, no lymphadenopathy Resp: Other: Diminished BS throughout, poor effort from pt due to pain. No increased work of breathing, no longer tachypneic. Cardio: Rate: regular rate Rhythm: regular rhythm Other: 2+ pulses bilateral radial GI: Other: Firm with anasarca of the abdominal wall, distended, G-tube present, hypoactive bowel sounds, nontender Skin: Other: Numerous decubitus ulcers in various stages. Please see nursing documentation for photos in size, some of the decubitus ulcers are still covered in eschar most notably the left hip, the wounds on the sacrum have areas of open wound but still have some areas of eschar as well, he of as other wounds on the left knight, right knight, right hip and left knee Neuro: Other: A&O x4 Extrem: Other: Numerous wounds as discussed above, anasarca of the lower extremities Psych: Other: Pleasant and cooperative but confused, perseverating with tangential thought process, poor judgment and insight Objective Data Vital Signs Vital Signs: Vital Signs - 24 hr 09/30/25 09:41 09/30/25 12:00 09/30/25 13:57 Temperature 97.6 F 99.0 F Pulse Rate 109 H 107 H 84 Respiratory Rate 14 18 20 Blood Pressure 109/55 L 111/52 L Pulse Oximetry 96 95 Oxygen Delivery Oxygen Flow Rate 09/30/25 14:06 09/30/25 16:00 09/30/25 20:00 Temperature 98.1 F 98.3 F Pulse Rate 84 105 H 104 H Respiratory Rate 20 14 20 Blood Pressure 121/71 118/84 Pulse Oximetry 92 99 Oxygen Delivery Oxygen Flow Rate 09/30/25 20:00 09/30/25 20:25 09/30/25 20:28 Temperature Pulse Rate 92 Respiratory Rate 20 Blood Pressure Pulse Oximetry 95 95 Oxygen Delivery Nasal Cannula Nasal Cannula Oxygen Flow Rate 2 2 09/30/25 20:31 10/01/25 00:00 10/01/25 04:00 Temperature 98.5 F 98.2 F Pulse Rate 87 107 H 103 H Respiratory Rate 20 20 18 Blood Pressure 98/51 L 111/59 L Pulse Oximetry 93 92 Oxygen Delivery Oxygen Flow Rate 10/01/25 07:45 10/01/25 07:46 10/01/25 07:48 Temperature Pulse Rate 79 82 Respiratory Rate 18 18 Blood Pressure Pulse Oximetry 93 Oxygen Delivery Nasal Cannula Oxygen Flow Rate 2.5 Intake/Output Intake/Output: Intake & Output 09/28/25 09/29/25 09/30/25 10/01/25 23:59 23:59 23:59 23:59 Intake Total 0 2091.3 1400 1018.8 Output Total 950 950 675 Balance 2049 1141.3 450 343.8 Meds/Results Medications: Active Medications Generic Name Dose Route Start Last Admin Trade Name Freq PRN Reason Stop Dose Admin Albuterol/Ipratropium 3 ml 09/29/25 02:00 10/01/25 07:43 Ipratropium 0.5 Mg/Albuterol Sulfate 2.5 Mg (Base) Ampul.Neb 3 Ml INHALATION 3 ml Q6HRT MICAH Administration Apixaban 5 mg 09/29/25 09:00 09/30/25 20:39 Apixaban 5 Mg Tablet FEED TUBE 5 mg Q12HR MICAH Administration Bisacodyl 10 mg 09/29/25 02:24 Bisacodyl 10 Mg Suppository RECTAL QAM PRN Constipation Ampicillin Sodium/Sulbactam 100 mls @ 200 mls/hr 09/29/25 00:00 10/01/25 05:24 Sodium 3 gm/ Sodium Chloride IVPB 100 mls/hr Q6H MICAH Administration Lactated Ringer's 1,000 mls @ 75 mls/hr 09/29/25 12:25 10/01/25 05:23 Lr - Lactated Ringers Iv IV CONT 75 mls/hr .[id number] MICAH Administration Lactulose 20 gm 09/29/25 09:00 09/30/25 17:06 Lactulose 20 Gm/30 Ml Udc FEED TUBE 10/01/25 08:59 Not Given BID MICAH Montelukast Sodium 10 mg 09/29/25 21:00 09/30/25 20:39 Montelukast Sodium 10 Mg Tablet FEED TUBE 10 mg HS MICAH Administration Multivitamins Therapeutic 1 tablet 09/29/25 09:00 09/30/25 08:36 Multivitamins Therapeutic Tab (*Bkc) FEED TUBE 1 tablet QAM MICAH Administration Mupirocin 1 applic 09/29/25 09:00 09/30/25 20:40 Mupirocin 2% Oint 22 Gm Tube EACH NARE 10/03/25 21:01 1 applic Q12HR MICAH Administration Oxycodone HCl 5 mg 09/29/25 02:24 10/01/25 00:16 Oxycodone Hcl (*Crx) 5 Mg Tab Ir FEED TUBE 5 mg Q6H PRN Administration pain 7-10 Fluticasone/Salmeterol 2 puff 09/29/25 08:00 10/01/25 07:43 Fluticasone/Salmeterol 115-21 Mcg Inhaler 1 Puff INHALATION 2 puff Q12HRT MICAH Administration Radiology Results: ITS Impressions Chest X-Ray 09/28/25 17:41 IMPRESSION: 1. No acute pulmonary findings. Abdomen/Pelvis CT 09/28/25 18:56 IMPRESSION: 1. No acute findings within the abdomen. Significant fecal impaction of the rectum. 2. 1.7 cm deep decubitus ulcer over the lower sacrum and coccyx. Labs Labs: Laboratory Results - last 24 hr 09/30/25 10/01/25 10/01/25 12:11 00:03 05:27 WBC RBC Hgb Hct MCV MCH MCHC RDW Plt Count MPV Immature Gran % (Auto) Neut % (Auto) Lymph % (Auto) [place] % (Auto) Eos % (Auto) Baso % (Auto) Lymph # (Auto) [place] # (Auto) Eos # (Auto) Baso # (Auto) Abs Immat Gran (auto) Absolute Neuts (auto) Absolute Nucleated RBC Band Neutrophils % Nucleated RBC % Platelet Estimate Hypochromasia Anisocytosis Stomatocytes Schistocytes Sodium Potassium Chloride Carbon Dioxide Anion Gap BUN Creatinine Estim Creat Clear Calc Estimated GFR Glucose POC Capillary Glucose 162 H 150 H 136 H Calcium Total Bilirubin AST ALT Alkaline Phosphatase Total Protein Albumin 10/01/25 06:31 WBC 12.8 H RBC 2.74 L Hgb 7.7 L Hct 26.1 L MCV 95.3 MCH 28.1 MCHC 29.5 L RDW 16.7 H Plt Count 378 H MPV 9.6 Immature Gran % (Auto) 1.1 H Neut % (Auto) 63.9 Lymph % (Auto) 21.5 [place] % (Auto) 7.4 Eos % (Auto) 5.7 H Baso % (Auto) 0.4 Lymph # (Auto) 2.75 [place] # (Auto) 0.9 H Eos # (Auto) 0.7 H Baso # (Auto) 0.1 Abs Immat Gran (auto) 0.14 H Absolute Neuts (auto) 8.2 H Absolute Nucleated RBC 0.000 Band Neutrophils % Not Reportable Nucleated RBC % 0.0 Platelet Estimate Adequate Hypochromasia 2+ Anisocytosis 1+ Stomatocytes 1+ Schistocytes None seen Sodium 137 Potassium 4.1 Chloride 103 Carbon Dioxide 34 H Anion Gap 0 L BUN 13 Creatinine 0.50 L Estim Creat Clear Calc 101 Estimated GFR > 60 Glucose 107 POC Capillary Glucose Calcium 8.0 L Total Bilirubin 0.2 AST 17 ALT 14 Alkaline Phosphatase 70 Total Protein 5.3 L Albumin 2.3 L Quality VTE Prophylaxis VTE prophylaxis: pharmacologic ordered (Continue home Eliquis.)
[2025-10-01] MEDS: MULTIVITAMINS THERAPEUTIC TAB (*BKC) 1 TABLET FEED TUBE (09:54)
[2025-10-01] MEDS: APIXABAN 5 MG TABLET FEED TUBE ×2 (09:54→20:41)
[2025-10-01] MEDS: MUPIROCIN 2% OINT 22 GM TUBE 1 APPLIC EACH NARE ×2 (09:54→20:43)
[2025-10-01] MEDS: FLUTICASONE/SALMETEROL 115-21 MCG (*SP) INHALER 2 PUFF INHALATION ×2 (13:32→20:13)
--- NOTE | 2025-10-01 14:01 | PCRCNOTE ---
patient MDI was delayed due to isolation and inhaler not being in the room
[2025-10-01] MEDS: MONTELUKAST SODIUM 10 MG TABLET FEED TUBE (20:41)
[2025-10-02] VITALS (15 sets, daily range): BP systolic 100–124; BP diastolic 50–68; PULSE 75–115; RESP 16–22; TEMP 36.8–37.1; O2SAT 90–97
[2025-10-02] MEDS: IPRATROPIUM 0.5 MG/ALBUTEROL SULFATE 2.5 MG (BASE) AMPUL.NEB 3 ML INHALATION ×4 (01:29→21:41)
[2025-10-02] MEDS: AMPICILLIN SODIUM/SULBACTAM 3 GM in SODIUM CHLORIDE 0.9% IV 100 ML IVPB ×4 (05:51→23:28)
[2025-10-02] MEDS: oxyCODONE HCL (*CRX) 5 MG TAB IR FEED TUBE (06:02)
[2025-10-02 06:31] LABS: Hematocrit 26.0 % (42.0-52.0); Hemoglobin 7.7 g/dL (14.0-18.0); Immature Granulocyte Percent A 1.0 % (0-0.5); Lymphocytes Absolute Auto 2.68 K/mm3 (0.9-3.2); Mean Corpuscular HGB Conc 29.6 g/dl (32-36); Mean Corpuscular Hemoglobin 27.8 pg (26-34); Mean Corpuscular Volume 93.9 fl (80-100); Nucleated Red Blood Cells Absolute Auto 0.000 K/mm3 (0.0-0.012); Nucleated Red Blood Cells Perc 0.0 % (0.0-0.2); Platelet Count Result 371 k/mm3 (150-375); Red Blood Count 2.77 M/mm3 (4.6-6.20); White Blood Count 14.0 K/mm3 (4.5-10.0)
[2025-10-02 06:56] LABS: Alanine Aminotransferase 15 U/L (6-50); Albumin Level 2.2 g/dL (3.5-5.1); Alkaline Phosphatase 76 U/L (38-126); Anion Gap -1 mmol/L (4-12); Aspartate Amino Transferase 20 U/L (17-59); Bilirubin,Total 0.2 mg/dL (0.2-1.3); Blood Urea Nitrogen 10 mg/dL (9-20); Calcium 7.9 mg/dL (8.4-10.2); Carbon Dioxide 32 mmol/L (22-30); Chloride 104 mmol/L (98-107); Estimated CRCL calculation 106 ml/min; Estimated Glomerular Filt Rate > 60; Glucose 126 mg/dL (65-110); Potassium 3.9 mmol/L (3.4-5.0); Sodium 135 mmol/L (137-145); Total Protein 5.2 g/dL (6.3-8.2)
[2025-10-02 06:57] LABS: Anisocytosis 1+; Hypochromasia 2+
[2025-10-02 06:59] LABS: Schistocytes None Seen
[2025-10-02] MEDS: FLUTICASONE/SALMETEROL 115-21 MCG (*SP) INHALER 2 PUFF INHALATION ×2 (07:36→21:41)
--- NOTE | 2025-10-02 08:03 | PM.IMPN ---
Progress Note: A&P Assessment and Plan (1) Sepsis: Qualifiers: Sepsis acute organ dysfunction status: without acute organ dysfunction Sepsis type: sepsis due to unspecified organism Qualified Code(s): A41.9 - Sepsis, unspecified organism Code(s): A41.9 - Sepsis, unspecified organism Status: Acute Assessment and Plan: Patient met sepsis criteria with tachycardia, leukocytosis, lactic acidosis and tachypnea in the setting of suspected pneumonia or less likely urinary tract infection. Given the patient had a recent G-tube placed aspiration pneumonia is most likely pathology. -x1 dose of empiric Zosyn given in ED, changed to Unasyn, will continue -Pending BC -Chronic indwelling Mondragon catheter, changed in the ED. Urine yielding turbid appearance, 3+blood, 3+ leuks, 1+bacteria UC prelim gram neg baccilli isolated, pending final & sensitivities ---He did grew out a multidrug resistant organism during his last hospitalization that is resistant to Zosyn but again urinary tract infection is far lower on my differential given the patient's symptomatology with cough, tachypnea and purulent appearing sputum on presentation. -Chest x-ray was relatively clear but of may be early in the infectious process -CRP elevated, will redraw tomorrow for trending -Lactic acid & procalcitonin WDL -Wound team saw pt with thorough assessment, please see note. -One instance of tachycardia (107bpm) and one instance of hypotension (98/51) this AM, will continue to monitor. -WBC mildly increased today, continue to trend (2) Oropharyngeal dysphagia: Code(s): R13.12 - Dysphagia, oropharyngeal phase Status: Acute Assessment and Plan: G tube in place, tube feeds jevity 1.5 55ml/hr with q4 NS flushes, dietary following. Per RN, pt nml rate of TF 150 ml/hr but since still on LR IVF, will remain on 55 ml/hr per dietary. -Pureed diet with thickened liquids via [facility] paperwork per nursing (3) Chronic hypoxic respiratory failure, on home oxygen therapy: Code(s): J96.11 - Chronic respiratory failure with hypoxia; Z99.81 - Dependence on supplemental oxygen Status: Acute Assessment and Plan: It appears that the patient was discharged on oxygen to the skilled nursing. The patient is only on 2 L oxygen where he was on 4 L at the time of discharge previously. No evidence of acute failure. Will continue supplemental oxygen and home inhalers with p.r.n. DuoNebs. Will also provide Acapella for pulmonary toilet. (4) Fecal impaction in rectum: Code(s): K56.41 - Fecal impaction Status: Acute Assessment and Plan: Via CT Imaging also demonstrates fecal impaction. Patient refused manual disimpaction when he was in the ER. Patient is resistant to having an enema. Subsequently will start the patient on lactulose b.i.d. for 2 days then re-evaluate (x2 days on 10/01). Will also add MiraLax daily. Bisaxodyl supp PRN -Multiple large BMs 09/30, D/C lactulose (5) Multiple sclerosis: Code(s): G35 - Multiple sclerosis Status: Chronic Assessment and Plan: Patient also does have multiple decubitus ulcers but none of which appear to be acutely infected. Will order wound care consult for recommendations on dressings and management. 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 (6) Pulmonary embolism: Onset Date: 09/06/25 Qualifiers: Acute cor pulmonale presence: without acute cor pulmonale Chronicity: acute Pulmonary embolism type: other Qualified Code(s): I26.99 - Other pulmonary embolism without acute cor pulmonale Code(s): I26.99 - Other pulmonary embolism without acute cor pulmonale Status: Acute Assessment and Plan: Patient has had a recent pulmonary embolism and is home Eliquis will be continued. (7) Failure to thrive in adult: Code(s): R62.7 - Adult failure to thrive Status: Acute Assessment and Plan: Patient does have chronic failure to thrive chronic protein calorie malnutrition. Will resume the patient's home tube feeds. Will also allow the patient oral feeds as tolerated with modified consistency of pureed diet with thickened liquids with aspiration precautions in place. (8) Abnormal urinalysis: Code(s): R82.90 - Unspecified abnormal findings in urine Status: Acute Assessment and Plan: The patient's Mondragon catheter was exchanged in the ER. UC final pending, prelim gram neg bacilli isolated (9) Severe malnutrition: Code(s): E43 - Unspecified severe protein-calorie malnutrition Status: Acute Assessment and Plan: See above. Plan MRSA+, continue mupirocin applications, continue abx for UTI. Pending discussion with daughter for potential hospice. Time Spent With Patient Time: 45 Subjective Date/time seen: 10/02/25 08:03 Interval history: Pt lying in bed upon my arrival with daughter, Odalys AGUIRRE), at the bedside. Pt states that he has no new sx but does feel a bit off today. No new sx to speak of, just generalized malaise. Spoke to daughter at the bedside briefly today and updated her on the pts medical status. CC to come speak to her more in depth about hospice. Review of Systems Review of Systems: All systems reviewed & are unremarkable except as noted in HPI and below Exam Narrative: Weight 59.6 kg BMI 18.3 Const: Other: No acute distress, chronically ill-appearing, thin body habitus HENMT: Other: Mucous membranes are tacky, no oral pharyngeal erythema poor dentition, mild temporal wasting, nasal cannula in place Eyes: Other: Pupils are equal and reactive, no scleral icterus Neck: Other: No JVD, no lymphadenopathy Resp: Other: Diminished BS throughout, poor effort from pt due to pain. No increased work of breathing, no longer tachypneic. Cardio: Rate: regular rate Rhythm: regular rhythm Other: 2+ pulses bilateral radial GI: Other: Firm with anasarca of the abdominal wall, distended, G-tube present, hypoactive bowel sounds, nontender Skin: Other: Numerous decubitus ulcers in various stages. Please see nursing documentation for photos in size, some of the decubitus ulcers are still covered in eschar most notably the left hip, the wounds on the sacrum have areas of open wound but still have some areas of eschar as well, he of as other wounds on the left knight, right knight, right hip and left knee Neuro: Other: A&O x4 Extrem: Other: Numerous wounds as discussed above, anasarca of the lower extremities Psych: Other: Pleasant and cooperative but confused, perseverating with tangential thought process, poor judgment and insight Objective Data Vital Signs Vital Signs: Vital Signs - 24 hr 10/01/25 09:48 10/01/25 12:00 10/01/25 13:30 Temperature 97.8 F Pulse Rate 86 82 Respiratory Rate 16 18 Blood Pressure 115/58 L Pulse Oximetry 94 92 Oxygen Delivery Nasal Cannula Oxygen Flow Rate 2 10/01/25 13:35 10/01/25 16:00 10/01/25 20:00 Temperature 97.4 F L Pulse Rate 85 84 Respiratory Rate 18 16 Blood Pressure 128/69 Pulse Oximetry 93 94 Oxygen Delivery Nasal Cannula Oxygen Flow Rate 2 10/01/25 20:09 10/01/25 20:11 10/01/25 20:17 Temperature Pulse Rate 109 H 111 H Respiratory Rate 18 18 Blood Pressure Pulse Oximetry 94 Oxygen Delivery Nasal Cannula Oxygen Flow Rate 2 10/01/25 21:45 10/02/25 01:29 10/02/25 01:34 Temperature 97.8 F Pulse Rate 113 H 113 H 115 H Respiratory Rate 16 18 18 Blood Pressure 126/78 Pulse Oximetry 93 Oxygen Delivery Oxygen Flow Rate 10/02/25 06:00 10/02/25 07:37 10/02/25 07:37 Temperature 98.2 F Pulse Rate 93 94 Respiratory Rate 16 18 Blood Pressure 107/55 L Pulse Oximetry 94 94 Oxygen Delivery Nasal Cannula Oxygen Flow Rate 2 10/02/25 07:47 Temperature Pulse Rate 93 Respiratory Rate 18 Blood Pressure Pulse Oximetry Oxygen Delivery Oxygen Flow Rate Intake/Output Intake/Output: Intake & Output 09/29/25 09/30/25 10/01/25 10/02/25 23:59 23:59 23:59 23:59 Intake Total 2091.3 1400 3638.8 100 Output Total 950 560 275 5905 Balance 1141.3 450 2963.8 -1350 Meds/Results Medications: Active Medications Generic Name Dose Route Start Last Admin Trade Name Freq PRN Reason Stop Dose Admin Albuterol/Ipratropium 3 ml 09/29/25 02:00 10/02/25 07:36 Ipratropium 0.5 Mg/Albuterol Sulfate 2.5 Mg (Base) Ampul.Neb 3 Ml INHALATION 3 ml Q6HRT MICAH Administration Apixaban 5 mg 09/29/25 09:00 10/01/25 20:41 Apixaban 5 Mg Tablet FEED TUBE 5 mg Q12HR MICAH Administration Bisacodyl 10 mg 09/29/25 02:24 Bisacodyl 10 Mg Suppository RECTAL QAM PRN Constipation Ampicillin Sodium/Sulbactam 100 mls @ 200 mls/hr 09/29/25 00:00 10/02/25 05:51 Sodium 3 gm/ Sodium Chloride IVPB 100 mls/hr Q6H MICAH Administration Lactated Ringer's 1,000 mls @ 75 mls/hr 09/29/25 12:25 10/01/25 20:38 Lr - Lactated Ringers Iv IV CONT 75 mls/hr .[id number] MICAH Administration Montelukast Sodium 10 mg 09/29/25 21:00 10/01/25 20:41 Montelukast Sodium 10 Mg Tablet FEED TUBE 10 mg HS MICAH Administration Multivitamins Therapeutic 1 tablet 09/29/25 09:00 10/01/25 09:54 Multivitamins Therapeutic Tab (*Bkc) FEED TUBE 1 tablet QAM MICAH Administration Mupirocin 1 applic 09/29/25 09:00 10/01/25 20:43 Mupirocin 2% Oint 22 Gm Tube EACH NARE 10/03/25 21:01 1 applic Q12HR MICAH Administration Oxycodone HCl 5 mg 09/29/25 02:24 10/02/25 06:02 Oxycodone Hcl (*Crx) 5 Mg Tab Ir FEED TUBE 5 mg Q6H PRN Administration pain 7-10 Fluticasone/Salmeterol 2 puff 10/01/25 08:00 10/02/25 07:36 Fluticasone/Salmeterol 115-21 Mcg (*Sp) Inhaler INHALATION 2 puff Q12HRT MICAH Administration Radiology Results: ITS Impressions Chest X-Ray 09/28/25 17:41 IMPRESSION: 1. No acute pulmonary findings. Abdomen/Pelvis CT 09/28/25 18:56 IMPRESSION: 1. No acute findings within the abdomen. Significant fecal impaction of the rectum. 2. 1.7 cm deep decubitus ulcer over the lower sacrum and coccyx. Labs Labs: Laboratory Results - last 24 hr 10/01/25 10/02/25 10/02/25 16:33 00:52 06:20 WBC 14.0 H RBC 2.77 L Hgb 7.7 L Hct 26.0 L MCV 93.9 MCH 27.8 MCHC 29.6 L RDW 16.3 H Plt Count 371 MPV 9.6 Immature Gran % (Auto) 1.0 H Neut % (Auto) 66.2 Lymph % (Auto) 19.2 [place] % (Auto) 6.5 Eos % (Auto) 6.7 H Baso % (Auto) 0.4 Lymph # (Auto) 2.68 [place] # (Auto) 0.9 H Eos # (Auto) 0.9 H Baso # (Auto) 0.1 Abs Immat Gran (auto) 0.14 H Absolute Neuts (auto) 9.2 H Absolute Nucleated RBC 0.000 Band Neutrophils % Not Reportable Nucleated RBC % 0.0 Platelet Estimate Adequate Hypochromasia 2+ Anisocytosis 1+ Schistocytes None seen Sodium 135 L Potassium 3.9 Chloride 104 Carbon Dioxide 32 H Anion Gap -1 L BUN 10 Creatinine 0.47 L Estim Creat Clear Calc 106 Estimated GFR > 60 Glucose 126 H POC Capillary Glucose 120 H 138 H Calcium 7.9 L Total Bilirubin 0.2 AST 20 ALT 15 Alkaline Phosphatase 76 Total Protein 5.2 L Albumin 2.2 L Quality VTE Prophylaxis VTE prophylaxis: pharmacologic ordered (Continue home Eliquis.)
[2025-10-02] MEDS: APIXABAN 5 MG TABLET FEED TUBE ×2 (08:54→21:18)
[2025-10-02] MEDS: MULTIVITAMINS THERAPEUTIC TAB (*BKC) 1 TABLET FEED TUBE (08:54)
[2025-10-02] MEDS: MUPIROCIN 2% OINT 22 GM TUBE 1 APPLIC EACH NARE ×2 (08:55→21:18)
[2025-10-02] MEDS: LACTATED RINGERS 1,000 ML 75 ML IV CONT ×2 (08:55→23:29)
[2025-10-02] MEDS: MONTELUKAST SODIUM 10 MG TABLET FEED TUBE (21:18)
[2025-10-03] VITALS (14 sets, daily range): BP systolic 96–115; BP diastolic 46–72; PULSE 87–109; RESP 14–20; TEMP 36.4–37; O2SAT 94–100
[2025-10-03] MEDS: IPRATROPIUM 0.5 MG/ALBUTEROL SULFATE 2.5 MG (BASE) AMPUL.NEB 3 ML INHALATION ×4 (02:00→21:24)
[2025-10-03] MEDS: AMPICILLIN SODIUM/SULBACTAM 3 GM in SODIUM CHLORIDE 0.9% IV 100 ML IVPB ×3 (05:09→17:18)
[2025-10-03 05:40] LABS: Hematocrit 26.9 % (42.0-52.0); Hemoglobin 8.0 g/dL (14.0-18.0); Immature Granulocyte Percent A 1.5 % (0-0.5); Lymphocytes Absolute Auto 3.02 K/mm3 (0.9-3.2); Mean Corpuscular HGB Conc 29.7 g/dl (32-36); Mean Corpuscular Hemoglobin 28.0 pg (26-34); Mean Corpuscular Volume 94.1 fl (80-100); Nucleated Red Blood Cells Absolute Auto 0.000 K/mm3 (0.0-0.012); Nucleated Red Blood Cells Perc 0.0 % (0.0-0.2); Platelet Count Result 414 k/mm3 (150-375); Red Blood Count 2.86 M/mm3 (4.6-6.20); White Blood Count 15.8 K/mm3 (4.5-10.0)
[2025-10-03 06:15] LABS: Alanine Aminotransferase 17 U/L (6-50); Albumin Level 2.4 g/dL (3.5-5.1); Alkaline Phosphatase 81 U/L (38-126); Anion Gap -2 mmol/L (4-12); Aspartate Amino Transferase 22 U/L (17-59); Bilirubin,Total 0.3 mg/dL (0.2-1.3); Blood Urea Nitrogen 17 mg/dL (9-20); CRP 3.0 mg/dL (<1.0); Calcium 8.0 mg/dL (8.4-10.2); Carbon Dioxide 32 mmol/L (22-30); Chloride 103 mmol/L (98-107); Estimated CRCL calculation 106 ml/min; Estimated Glomerular Filt Rate > 60; Glucose 136 mg/dL (65-110); Potassium 3.8 mmol/L (3.4-5.0); Sodium 133 mmol/L (137-145); Total Protein 5.4 g/dL (6.3-8.2)
[2025-10-03 06:38] LABS: Hypochromasia 1+; Polychromasia Occasional; Schistocytes Occasional
[2025-10-03] MEDS: APIXABAN 5 MG TABLET FEED TUBE ×2 (09:24→20:59)
[2025-10-03] MEDS: MULTIVITAMINS THERAPEUTIC TAB (*BKC) 1 TABLET FEED TUBE (09:24)
[2025-10-03] MEDS: MUPIROCIN 2% OINT 22 GM TUBE 1 APPLIC EACH NARE ×2 (09:25→20:59)
--- NOTE | 2025-10-03 11:05 | PM.IMPN2 ---
Subjective Date/time seen: 10/03/25 1225 Interval history: Pt lying in bed upon my arrival. Pt with no complaints today, denies pain. Per CC, pt daughter unable to speak with VITAS until Friday, will treat UTI inpt until then. Review of Systems Review of Systems: Unobtainable due to patient's confusion. All systems reviewed & are unremarkable except as noted in HPI and below Exam Narrative: Weight 59.6 kg BMI 18.3 Const: Other: No acute distress, chronically ill-appearing, thin body habitus HENMT: Other: Mucous membranes are tacky, no oral pharyngeal erythema poor dentition, mild temporal wasting, nasal cannula in place Eyes: Other: Pupils are equal and reactive, no scleral icterus Neck: Other: No JVD, no lymphadenopathy Resp: Other: Diminished BS throughout, poor effort from pt due to pain. No increased work of breathing, no longer tachypneic. Cardio: Rate: regular rate Rhythm: regular rhythm Other: 2+ pulses bilateral radial GI: Other: Firm with anasarca of the abdominal wall, distended, G-tube present, hypoactive bowel sounds, nontender Skin: Other: Numerous decubitus ulcers in various stages. Please see nursing documentation for photos in size, some of the decubitus ulcers are still covered in eschar most notably the left hip, the wounds on the sacrum have areas of open wound but still have some areas of eschar as well, he of as other wounds on the left knight, right knight, right hip and left knee Neuro: Other: A&O x4 Extrem: Other: Numerous wounds as discussed above, anasarca of the lower extremities Psych: Other: Pleasant and cooperative but confused, perseverating with tangential thought process, poor judgment and insight Objective Data Vital Signs Vital Signs: Vital Signs - 24 hr 10/02/25 11:37 10/02/25 14:40 10/02/25 14:50 Temperature 98.4 F Pulse Rate 104 H 103 H 104 H Respiratory Rate 22 H 18 18 Blood Pressure 100/50 L Pulse Oximetry 90 Oxygen Delivery Oxygen Flow Rate Fraction of Inspired Oxygen 10/02/25 16:00 10/02/25 20:00 10/02/25 21:41 Temperature 98.7 F Pulse Rate 106 H 99 Respiratory Rate 22 H 20 Blood Pressure 124/68 Pulse Oximetry 92 97 Oxygen Delivery Nasal Cannula Oxygen Flow Rate 2 Fraction of Inspired Oxygen 10/02/25 21:42 10/02/25 22:00 10/03/25 02:08 Temperature 98.6 F Pulse Rate 99 101 H 100 Respiratory Rate 20 16 18 Blood Pressure 104/53 L Pulse Oximetry 94 94 Oxygen Delivery Nasal Cannula Oxygen Flow Rate 2 Fraction of Inspired Oxygen 28 10/03/25 02:16 10/03/25 06:00 10/03/25 08:34 Temperature 98.4 F Pulse Rate 100 101 H 96 Respiratory Rate 18 16 14 Blood Pressure 114/58 L Pulse Oximetry 95 98 Oxygen Delivery Nasal Cannula Oxygen Flow Rate 2 Fraction of Inspired Oxygen 10/03/25 08:34 10/03/25 08:40 Temperature Pulse Rate 96 98 Respiratory Rate 14 14 Blood Pressure Pulse Oximetry Oxygen Delivery Oxygen Flow Rate Fraction of Inspired Oxygen Intake/Output Intake/Output: Intake & Output 09/30/25 10/01/25 10/02/25 10/03/25 23:59 23:59 23:59 23:59 Intake Total 1400 3638.8 2981.2 1450 Output Total 819 448 1467 2950 Balance 450 2963.8 -68.8 -1500 Meds/Results Medications: Active Medications Generic Name Dose Route Start Last Admin Trade Name Freq PRN Reason Stop Dose Admin Albuterol/Ipratropium 3 ml 09/29/25 02:00 10/03/25 08:30 Ipratropium 0.5 Mg/Albuterol Sulfate 2.5 Mg (Base) Ampul.Neb 3 Ml INHALATION 3 ml Q6HRT MICAH Administration Apixaban 5 mg 09/29/25 09:00 10/03/25 09:24 Apixaban 5 Mg Tablet FEED TUBE 5 mg Q12HR MICAH Administration Bisacodyl 10 mg 09/29/25 02:24 Bisacodyl 10 Mg Suppository RECTAL QAM PRN Constipation Ampicillin Sodium/Sulbactam 100 mls @ 200 mls/hr 09/29/25 00:00 10/03/25 06:09 Sodium 3 gm/ Sodium Chloride IVPB Infused Q6H MICAH Infusion Lactated Ringer's 1,000 mls @ 75 mls/hr 09/29/25 12:25 10/02/25 23:29 Lr - Lactated Ringers Iv IV CONT 75 mls/hr .[id number] MICAH Administration Montelukast Sodium 10 mg 09/29/25 21:00 10/02/25 21:18 Montelukast Sodium 10 Mg Tablet FEED TUBE 10 mg HS MICAH Administration Multivitamins Therapeutic 1 tablet 09/29/25 09:00 10/03/25 09:24 Multivitamins Therapeutic Tab (*Bkc) FEED TUBE 1 tablet QAM MICAH Administration Mupirocin 1 applic 09/29/25 09:00 10/03/25 09:25 Mupirocin 2% Oint 22 Gm Tube EACH NARE 10/03/25 21:01 1 applic Q12HR MICAH Administration Oxycodone HCl 5 mg 09/29/25 02:24 10/02/25 06:02 Oxycodone Hcl (*Crx) 5 Mg Tab Ir FEED TUBE 5 mg Q6H PRN Administration pain 7-10 Fluticasone/Salmeterol 2 puff 10/01/25 08:00 10/02/25 21:41 Fluticasone/Salmeterol 115-21 Mcg (*Sp) Inhaler INHALATION 2 puff Q12HRT MICAH Administration Radiology Results: ITS Impressions Chest X-Ray 09/28/25 17:41 IMPRESSION: 1. No acute pulmonary findings. Abdomen/Pelvis CT 09/28/25 18:56 IMPRESSION: 1. No acute findings within the abdomen. Significant fecal impaction of the rectum. 2. 1.7 cm deep decubitus ulcer over the lower sacrum and coccyx. Labs Labs: Laboratory Results - last 24 hr 10/02/25 10/02/25 10/03/25 11:30 17:34 00:28 WBC RBC Hgb Hct MCV MCH MCHC RDW Plt Count MPV Immature Gran % (Auto) Neut % (Auto) Lymph % (Auto) [place] % (Auto) Eos % (Auto) Baso % (Auto) Lymph # (Auto) [place] # (Auto) Eos # (Auto) Baso # (Auto) Abs Immat Gran (auto) Absolute Neuts (auto) Absolute Nucleated RBC Band Neutrophils % Nucleated RBC % Platelet Estimate Polychromasia Hypochromasia Schistocytes Sodium Potassium Chloride Carbon Dioxide Anion Gap BUN Creatinine Estim Creat Clear Calc Estimated GFR Glucose POC Capillary Glucose 137 H 112 H 126 H Calcium Total Bilirubin AST ALT Alkaline Phosphatase C-Reactive Protein Total Protein Albumin 10/03/25 10/03/25 04:55 07:04 WBC 15.8 H RBC 2.86 L Hgb 8.0 L Hct 26.9 L MCV 94.1 MCH 28.0 MCHC 29.7 L RDW 16.4 H Plt Count 414 H MPV 9.9 Immature Gran % (Auto) 1.5 H Neut % (Auto) 67.6 Lymph % (Auto) 19.1 [place] % (Auto) 6.4 Eos % (Auto) 5.1 H Baso % (Auto) 0.3 Lymph # (Auto) 3.02 [place] # (Auto) 1.0 H Eos # (Auto) 0.8 H Baso # (Auto) 0.1 Abs Immat Gran (auto) 0.23 H Absolute Neuts (auto) 10.7 H Absolute Nucleated RBC 0.000 Band Neutrophils % Not Reportable Nucleated RBC % 0.0 Platelet Estimate Increased Polychromasia Occasional Hypochromasia 1+ Schistocytes Occasional Sodium 133 L Potassium 3.8 Chloride 103 Carbon Dioxide 32 H Anion Gap -2 L BUN 17 Creatinine 0.47 L Estim Creat Clear Calc 106 Estimated GFR > 60 Glucose 136 H POC Capillary Glucose 129 H Calcium 8.0 L Total Bilirubin 0.3 AST 22 ALT 17 Alkaline Phosphatase 81 C-Reactive Protein 3.0 H Total Protein 5.4 L Albumin 2.4 L Assessment and Plan Assessment and Plan (1) Sepsis: Qualifiers: Sepsis acute organ dysfunction status: without acute organ dysfunction Sepsis type: sepsis due to unspecified organism Qualified Code(s): A41.9 - Sepsis, unspecified organism Code(s): A41.9 - Sepsis, unspecified organism Status: Acute Assessment and Plan: Patient met sepsis criteria with tachycardia, leukocytosis, lactic acidosis and tachypnea in the setting of suspected pneumonia or less likely urinary tract infection. Given the patient had a recent G-tube placed aspiration pneumonia is most likely pathology. -x1 dose of empiric Zosyn given in ED, changed to Unasyn, will continue -Pending BC -Chronic indwelling Mondragon catheter, changed in the ED. Urine yielding turbid appearance, 3+blood, 3+ leuks, 1+bacteria UC prelim gram neg baccilli isolated, pending final & sensitivities ---He did grew out a multidrug resistant organism during his last hospitalization that is resistant to Zosyn but again urinary tract infection is far lower on my differential given the patient's symptomatology with cough, tachypnea and purulent appearing sputum on presentation. -Chest x-ray was relatively clear but of may be early in the infectious process -CRP elevated, will redraw tomorrow for trending -Lactic acid & procalcitonin WDL -Wound team saw pt with thorough assessment, please see note. -VSS -WBC mildly increased today, continue to trend. Appears baseline per record trends. (2) Oropharyngeal dysphagia: Code(s): R13.12 - Dysphagia, oropharyngeal phase Status: Acute Assessment and Plan: G tube in place, tube feeds jevity 1.5 55ml/hr with q4 NS flushes, dietary following. Per RN, pt nml rate of TF 150 ml/hr but since still on LR IVF, will remain on 55 ml/hr per dietary. -Pureed diet with thickened liquids via [place] paperwork per nursing (3) Chronic hypoxic respiratory failure, on home oxygen therapy: Code(s): J96.11 - Chronic respiratory failure with hypoxia; Z99.81 - Dependence on supplemental oxygen Status: Acute Assessment and Plan: It appears that the patient was discharged on oxygen to the assisted. The patient is only on 2 L oxygen where he was on 4 L at the time of discharge previously. No evidence of acute failure. Will continue supplemental oxygen and home inhalers with p.r.n. DuoNebs. Will also provide Acapella for pulmonary toilet. (4) Fecal impaction in rectum: Code(s): K56.41 - Fecal impaction Status: Acute Assessment and Plan: Via CT Imaging also demonstrates fecal impaction. Patient refused manual disimpaction when he was in the ER. Patient is resistant to having an enema. Subsequently will start the patient on lactulose b.i.d. for 2 days then re-evaluate (x2 days on 10/01). Will also add MiraLax daily. Bisaxodyl supp PRN -Multiple large BMs 09/30, D/C lactulose (5) Multiple sclerosis: Code(s): G35 - Multiple sclerosis Status: Chronic Assessment and Plan: Patient also does have multiple decubitus ulcers but none of which appear to be acutely infected. Will order wound care consult for recommendations on dressings and management. 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 (6) Pulmonary embolism: Onset Date: 09/06/25 Qualifiers: Acute cor pulmonale presence: without acute cor pulmonale Chronicity: acute Pulmonary embolism type: other Qualified Code(s): I26.99 - Other pulmonary embolism without acute cor pulmonale Code(s): I26.99 - Other pulmonary embolism without acute cor pulmonale Status: Acute Assessment and Plan: Patient has had a recent pulmonary embolism and is home Eliquis will be continued. (7) Failure to thrive in adult: Code(s): R62.7 - Adult failure to thrive Status: Acute Assessment and Plan: Patient does have chronic failure to thrive chronic protein calorie malnutrition. Will resume the patient's home tube feeds. Will also allow the patient oral feeds as tolerated with modified consistency of pureed diet with thickened liquids with aspiration precautions in place. (8) Abnormal urinalysis: Code(s): R82.90 - Unspecified abnormal findings in urine Status: Acute Assessment and Plan: The patient's Mondragon catheter was exchanged in the ER. UC final pending, prelim gram neg bacilli isolated (9) Severe malnutrition: Code(s): E43 - Unspecified severe protein-calorie malnutrition Status: Acute Assessment and Plan: See above. (10) Decubitus ulcer: Code(s): L89.90 - Pressure ulcer of unspecified site, unspecified stage Status: Acute Assessment and Plan: R hip: Unstageable pressure injury. Wound bed Covered and black eschar with no signs and symptoms of infection. Right ischium: Unstageable pressure injury. Wound bed Covered and black eschar with no signs and symptoms of infection. Sacrum: Stage IV pressure ulcer, surgically debrided approximately 2 months ago. Wound bed is 75% healing pink tissue and 25% yellow slough with a small area of bone exposed at the sacrum. there is a noted deep tissue injury in the wound bed that measures 3 cm in length by 1 cm and width. No signs and symptoms of infection. Left hip: Unstageable pressure injury noted to the left hip. Wound bed is 100% black eschar. Distal popped blister that is tachy and superficial measuring 1.5 cm in length by 5 cm by width and 0.1 cm in depth. Left lower medial leg: Arterial/diabetic ulcer to the left medial lower leg. No signs symptoms of infection to the surrounding tissue. Left posterior heel: Unstageable pressure injury to the left posterior year old. Two separate areas of black eschar with a small area of pink tissue . Length 4.8 cm, 3 cm width, 0.2 cm depth. Right lateral ankle: Unstageable pressure injury noted to the right lateral ankle. Wound bed is covered in black eschar with scant exudate present. No sign and symptoms of infection noted. Right lateral foot: Chronic diabetic/ arterial ulcer present to the lateral aspect of the right foot. Loose eschar came off pressor to reveal wound bed. Wound is 100% yellow slough with no signs and symptoms of infection present. Right medial foot: Deep tissue injury present to the right medial foot. Ulcer covered with a foam border dressing. -wound care following, tx via their note. Plan MRSA+, continue mupirocin applications, continue abx for UTI. Daughter unable to speak with VITAS until 10/05 to discuss hospice, will continue to tx inpt UTI Quality VTE Prophylaxis VTE prophylaxis: pharmacologic ordered (Continue home Eliquis.)
[2025-10-03] MEDS: LACTATED RINGERS 1,000 ML 75 ML IV CONT (12:14)
[2025-10-03] MEDS: MONTELUKAST SODIUM 10 MG TABLET FEED TUBE (20:59)
[2025-10-03] MEDS: FLUTICASONE/SALMETEROL 115-21 MCG (*SP) INHALER 2 PUFF INHALATION (21:25)
[2025-10-03] MEDS: AMPICILLIN SODIUM/SULBACTAM 3 GM in SODIUM CHLORIDE 0.9% IV 100 ML 200 ML IVPB (23:43)
[2025-10-04] VITALS (16 sets, daily range): BP systolic 98–108; BP diastolic 47–63; PULSE 92–108; RESP 16–22; TEMP 36.6–37; O2SAT 91–100
[2025-10-04] MEDS: IPRATROPIUM 0.5 MG/ALBUTEROL SULFATE 2.5 MG (BASE) AMPUL.NEB 3 ML INHALATION ×4 (01:22→21:38)
[2025-10-04] MEDS: LACTATED RINGERS 1,000 ML 75 ML IV CONT ×2 (04:30→18:32)
[2025-10-04] MEDS: AMPICILLIN SODIUM/SULBACTAM 3 GM in SODIUM CHLORIDE 0.9% IV 100 ML 200 ML IVPB (05:24)
[2025-10-04 05:45] LABS: Hematocrit 26.5 % (42.0-52.0); Hemoglobin 7.9 g/dL (14.0-18.0); Immature Granulocyte Percent A 1.2 % (0-0.5); Lymphocytes Absolute Auto 2.47 K/mm3 (0.9-3.2); Mean Corpuscular HGB Conc 29.8 g/dl (32-36); Mean Corpuscular Hemoglobin 28.0 pg (26-34); Mean Corpuscular Volume 94.0 fl (80-100); Nucleated Red Blood Cells Absolute Auto 0.000 K/mm3 (0.0-0.012); Nucleated Red Blood Cells Perc 0.0 % (0.0-0.2); Platelet Count Result 404 k/mm3 (150-375); Red Blood Count 2.82 M/mm3 (4.6-6.20); White Blood Count 14.8 K/mm3 (4.5-10.0)
[2025-10-04 06:12] LABS: Alanine Aminotransferase 16 U/L (6-50); Albumin Level 2.4 g/dL (3.5-5.1); Alkaline Phosphatase 85 U/L (38-126); Anion Gap -2 mmol/L (4-12); Aspartate Amino Transferase 20 U/L (17-59); Bilirubin,Total 0.3 mg/dL (0.2-1.3); Blood Urea Nitrogen 12 mg/dL (9-20); Calcium 8.1 mg/dL (8.4-10.2); Carbon Dioxide 33 mmol/L (22-30); Chloride 105 mmol/L (98-107); Estimated CRCL calculation 111 ml/min; Estimated Glomerular Filt Rate > 60; Glucose 126 mg/dL (65-110); Potassium 3.9 mmol/L (3.4-5.0); Sodium 136 mmol/L (137-145); Total Protein 5.5 g/dL (6.3-8.2)
--- NOTE | 2025-10-04 06:14 | P.PNCROSS_ITS ---
Event Note Event Note Event Note: Urine culture resulted and antibiotics changed. Please see urine culture resul ts.
[2025-10-04 06:46] LABS: Anisocytosis Occasional; Hypochromasia 1+; Schistocytes None Seen
--- NOTE | 2025-10-04 08:07 | PM.IMPN2 ---
Assessment and Plan Assessment and Plan (1) Sepsis: Qualifiers: Sepsis acute organ dysfunction status: without acute organ dysfunction Sepsis type: sepsis due to unspecified organism Qualified Code(s): A41.9 - Sepsis, unspecified organism Code(s): A41.9 - Sepsis, unspecified organism Status: Acute Assessment and Plan: Patient met sepsis criteria with tachycardia, leukocytosis, lactic acidosis and tachypnea in the setting of suspected pneumonia or less likely urinary tract infection. Given the patient had a recent G-tube placed aspiration pneumonia is most likely pathology. -x1 dose of empiric Zosyn given in ED, changed to Unasyn, will continue -Pending BC -Chronic indwelling Mondragon catheter, changed in the ED. Urine yielding turbid appearance, 3+blood, 3+ leuks, 1+bacteria UC multidrug resistant organism, Acinetobacter baumannii -Susceptible to minocycline only, changed abx overnight. ---He did grew out a multidrug resistant organism during his last hospitalization that is resistant to Zosyn but again urinary tract infection is far lower on my differential given the patient's symptomatology with cough, tachypnea and purulent appearing sputum on presentation. -Chest x-ray was relatively clear but of may be early in the infectious process -CRP elevated, will redraw tomorrow for trending -Lactic acid & procalcitonin WDL -Wound team saw pt with thorough assessment, please see note. -VSS -WBC mildly increased today, continue to trend. Appears baseline per record trends. (2) Oropharyngeal dysphagia: Code(s): R13.12 - Dysphagia, oropharyngeal phase Status: Acute Assessment and Plan: G tube in place, tube feeds jevity 1.5 55ml/hr with q4 NS flushes, dietary following. Per RN, pt nml rate of TF 150 ml/hr but since still on LR IVF, will remain on 55 ml/hr per dietary. -Pureed diet with thickened liquids via NH paperwork per nursing (3) Chronic hypoxic respiratory failure, on home oxygen therapy: Code(s): J96.11 - Chronic respiratory failure with hypoxia; Z99.81 - Dependence on supplemental oxygen Status: Acute Assessment and Plan: It appears that the patient was discharged on oxygen to the residential. The patient is only on 2 L oxygen where he was on 4 L at the time of discharge previously. No evidence of acute failure. Will continue supplemental oxygen and home inhalers with p.r.n. DuoNebs. Will also provide Acapella for pulmonary toilet. (4) Fecal impaction in rectum: Code(s): K56.41 - Fecal impaction Status: Acute Assessment and Plan: Via CT Imaging also demonstrates fecal impaction. Patient refused manual disimpaction when he was in the ER. Patient is resistant to having an enema. Subsequently will start the patient on lactulose b.i.d. for 2 days then re-evaluate (x2 days on 10/01). Will also add MiraLax daily. Bisaxodyl supp PRN -Multiple large BMs 09/30, D/C lactulose (5) Multiple sclerosis: Code(s): G35 - Multiple sclerosis Status: Chronic Assessment and Plan: Patient also does have multiple decubitus ulcers but none of which appear to be acutely infected. Will order wound care consult for recommendations on dressings and management. 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 (6) Pulmonary embolism: Onset Date: 09/06/25 Qualifiers: Acute cor pulmonale presence: without acute cor pulmonale Chronicity: acute Pulmonary embolism type: other Qualified Code(s): I26.99 - Other pulmonary embolism without acute cor pulmonale Code(s): I26.99 - Other pulmonary embolism without acute cor pulmonale Status: Acute Assessment and Plan: Patient has had a recent pulmonary embolism and is home Eliquis will be continued. (7) Failure to thrive in adult: Code(s): R62.7 - Adult failure to thrive Status: Acute Assessment and Plan: Patient does have chronic failure to thrive chronic protein calorie malnutrition. Will resume the patient's home tube feeds. Will also allow the patient oral feeds as tolerated with modified consistency of pureed diet with thickened liquids with aspiration precautions in place. (8) Abnormal urinalysis: Code(s): R82.90 - Unspecified abnormal findings in urine Status: Acute Assessment and Plan: The patient's Mondragon catheter was exchanged in the ER. UC final resulted in multidrug resistant organism, Acinetobacter baumannii -Susceptible to minocycline only, changed abx overnight. (9) Severe malnutrition: Code(s): E43 - Unspecified severe protein-calorie malnutrition Status: Acute Assessment and Plan: See above. (10) Decubitus ulcer: Code(s): L89.90 - Pressure ulcer of unspecified site, unspecified stage Status: Acute Assessment and Plan: R hip: Unstageable pressure injury. Wound bed Covered and black eschar with no signs and symptoms of infection. Right ischium: Unstageable pressure injury. Wound bed Covered and black eschar with no signs and symptoms of infection. Sacrum: Stage IV pressure ulcer, surgically debrided approximately 2 months ago. Wound bed is 75% healing pink tissue and 25% yellow slough with a small area of bone exposed at the sacrum. there is a noted deep tissue injury in the wound bed that measures 3 cm in length by 1 cm and width. No signs and symptoms of infection. Left hip: Unstageable pressure injury noted to the left hip. Wound bed is 100% black eschar. Distal popped blister that is tachy and superficial measuring 1.5 cm in length by 5 cm by width and 0.1 cm in depth. Left lower medial leg: Arterial/diabetic ulcer to the left medial lower leg. No signs symptoms of infection to the surrounding tissue. Left posterior heel: Unstageable pressure injury to the left posterior year old. Two separate areas of black eschar with a small area of pink tissue . Length 4.8 cm, 3 cm width, 0.2 cm depth. Right lateral ankle: Unstageable pressure injury noted to the right lateral ankle. Wound bed is covered in black eschar with scant exudate present. No sign and symptoms of infection noted. Right lateral foot: Chronic diabetic/ arterial ulcer present to the lateral aspect of the right foot. Loose eschar came off pressor to reveal wound bed. Wound is 100% yellow slough with no signs and symptoms of infection present. Right medial foot: Deep tissue injury present to the right medial foot. Ulcer covered with a foam border dressing. -wound care following, tx via their note. Plan MRSA+, continue mupirocin applications, continue abx for UTI. Daughter unable to speak with [facility] until 10/05 to discuss hospice, will continue to tx inpt UTI Subjective Date/time seen: 10/04/25 1019 Interval history: Pt lying in bed upon my arrival. Pt with no complaints today, denies pain. Per CC, pt daughter unable to speak with [facility] until Friday, will treat UTI inpt until then. Review of Systems Review of Systems: Unobtainable due to patient's confusion. All systems reviewed & are unremarkable except as noted in HPI and below Exam Narrative: Weight 59.6 kg BMI 18.3 Const: Other: No acute distress, chronically ill-appearing, thin body habitus HENMT: Other: Mucous membranes are tacky, no oral pharyngeal erythema poor dentition, mild temporal wasting, nasal cannula in place Eyes: Other: Pupils are equal and reactive, no scleral icterus Neck: Other: No JVD, no lymphadenopathy Resp: Other: Diminished BS throughout, poor effort from pt due to pain. No increased work of breathing, no longer tachypneic. Cardio: Rate: regular rate Rhythm: regular rhythm Other: 2+ pulses bilateral radial GI: Other: Firm with anasarca of the abdominal wall, distended, G-tube present, hypoactive bowel sounds, nontender Skin: Other: Numerous decubitus ulcers in various stages. Please see nursing documentation for photos in size, some of the decubitus ulcers are still covered in eschar most notably the left hip, the wounds on the sacrum have areas of open wound but still have some areas of eschar as well, he of as other wounds on the left knight, right knight, right hip and left knee Neuro: Other: A&O x4 Extrem: Other: Numerous wounds as discussed above, anasarca of the lower extremities Psych: Other: Pleasant and cooperative but confused, perseverating with tangential thought process, poor judgment and insight Objective Data Vital Signs Vital Signs: Vital Signs - 24 hr 10/03/25 08:34 10/03/25 08:34 10/03/25 08:40 Temperature Pulse Rate 96 96 98 Respiratory Rate 14 14 14 Blood Pressure Pulse Oximetry 98 Oxygen Delivery Nasal Cannula Oxygen Flow Rate 2 Fraction of Inspired Oxygen 10/03/25 13:51 10/03/25 14:00 10/03/25 14:11 Temperature 97.8 F Pulse Rate 96 87 87 Respiratory Rate 16 18 18 Blood Pressure 113/67 Pulse Oximetry 94 Oxygen Delivery Oxygen Flow Rate Fraction of Inspired Oxygen 10/03/25 16:00 10/03/25 20:00 10/03/25 21:25 Temperature 97.6 F Pulse Rate 94 94 95 Respiratory Rate 16 20 20 Blood Pressure 115/72 Pulse Oximetry 96 100 Oxygen Delivery Nasal Cannula Oxygen Flow Rate 2 Fraction of Inspired Oxygen 28 10/03/25 21:27 10/03/25 21:39 10/03/25 22:55 Temperature 98.6 F Pulse Rate 95 94 109 H Respiratory Rate 20 20 16 Blood Pressure 96/46 L Pulse Oximetry 100 94 Oxygen Delivery Nasal Cannula Oxygen Flow Rate 2 Fraction of Inspired Oxygen 28 10/04/25 01:22 10/04/25 01:31 Temperature Pulse Rate 101 H 95 Respiratory Rate 20 20 Blood Pressure Pulse Oximetry Oxygen Delivery Oxygen Flow Rate Fraction of Inspired Oxygen Intake/Output Intake/Output: Intake & Output 10/01/25 10/02/25 10/03/25 10/04/25 23:59 23:59 23:59 23:59 Intake Total 3638.8 2981.2 2806.3 3015 Output Total 675 3050 2950 Balance 2963.8 -68.8 -143.7 3015 Meds/Results Medications: Active Medications Generic Name Dose Route Start Last Admin Trade Name Freq PRN Reason Stop Dose Admin Albuterol/Ipratropium 3 ml 09/29/25 02:00 10/04/25 01:22 Ipratropium 0.5 Mg/Albuterol Sulfate 2.5 Mg (Base) Ampul.Neb 3 Ml INHALATION 3 ml Q6HRT MICAH Administration Apixaban 5 mg 09/29/25 09:00 10/03/25 20:59 Apixaban 5 Mg Tablet FEED TUBE 5 mg Q12HR MICAH Administration Bisacodyl 10 mg 09/29/25 02:24 Bisacodyl 10 Mg Suppository RECTAL QAM PRN Constipation Lactated Ringer's 1,000 mls @ 75 mls/hr 09/29/25 12:25 10/04/25 04:30 Lr - Lactated Ringers Iv IV CONT 75 mls/hr .[id number] MICAH Administration Minocycline HCl 100 mg 10/04/25 09:00 Minocycline Hcl 100 Mg Capsule PO Q12HR MICAH Montelukast Sodium 10 mg 09/29/25 21:00 10/03/25 20:59 Montelukast Sodium 10 Mg Tablet FEED TUBE 10 mg HS MICAH Administration Multivitamins Therapeutic 1 tablet 09/29/25 09:00 10/03/25 09:24 Multivitamins Therapeutic Tab (*Bkc) FEED TUBE 1 tablet QAM MICAH Administration Oxycodone HCl 5 mg 09/29/25 02:24 10/02/25 06:02 Oxycodone Hcl (*Crx) 5 Mg Tab Ir FEED TUBE 5 mg Q6H PRN Administration pain 7-10 Fluticasone/Salmeterol 2 puff 10/01/25 08:00 10/03/25 21:25 Fluticasone/Salmeterol 115-21 Mcg (*Sp) Inhaler INHALATION 2 puff Q12HRT MICAH Administration Radiology Results: ITS Impressions Chest X-Ray 09/28/25 17:41 IMPRESSION: 1. No acute pulmonary findings. Abdomen/Pelvis CT 09/28/25 18:56 IMPRESSION: 1. No acute findings within the abdomen. Significant fecal impaction of the rectum. 2. 1.7 cm deep decubitus ulcer over the lower sacrum and coccyx. Labs Labs: Laboratory Results - last 24 hr 10/03/25 10/03/25 10/03/25 11:36 17:22 23:05 WBC RBC Hgb Hct MCV MCH MCHC RDW Plt Count MPV Immature Gran % (Auto) Neut % (Auto) Lymph % (Auto) Josephine % (Auto) Eos % (Auto) Baso % (Auto) Lymph # (Auto) Josephine # (Auto) Eos # (Auto) Baso # (Auto) Abs Immat Gran (auto) Absolute Neuts (auto) Absolute Nucleated RBC Band Neutrophils % Nucleated RBC % Platelet Estimate Hypochromasia Anisocytosis Schistocytes Sodium Potassium Chloride Carbon Dioxide Anion Gap BUN Creatinine Estim Creat Clear Calc Estimated GFR Glucose POC Capillary Glucose 137 H 139 H 137 H Calcium Total Bilirubin AST ALT Alkaline Phosphatase Total Protein Albumin 10/04/25 04:58 WBC 14.8 H RBC 2.82 L Hgb 7.9 L Hct 26.5 L MCV 94.0 MCH 28.0 MCHC 29.8 L RDW 16.5 H Plt Count 404 H MPV 9.7 Immature Gran % (Auto) 1.2 H Neut % (Auto) 69.7 Lymph % (Auto) 16.6 L Josephine % (Auto) 7.6 Eos % (Auto) 4.6 H Baso % (Auto) 0.3 Lymph # (Auto) 2.47 Josephine # (Auto) 1.1 H Eos # (Auto) 0.7 H Baso # (Auto) 0.0 Abs Immat Gran (auto) 0.18 H Absolute Neuts (auto) 10.3 H Absolute Nucleated RBC 0.000 Band Neutrophils % Not Reportable Nucleated RBC % 0.0 Platelet Estimate Increased Hypochromasia 1+ Anisocytosis Occasional Schistocytes None seen Sodium 136 L Potassium 3.9 Chloride 105 Carbon Dioxide 33 H Anion Gap -2 L BUN 12 D Creatinine 0.45 L Estim Creat Clear Calc 111 Estimated GFR > 60 Glucose 126 H POC Capillary Glucose Calcium 8.1 L Total Bilirubin 0.3 AST 20 ALT 16 Alkaline Phosphatase 85 Total Protein 5.5 L Albumin 2.4 L Quality VTE Prophylaxis VTE prophylaxis: pharmacologic ordered (Continue home Eliquis.)
[2025-10-04] MEDS: FLUTICASONE/SALMETEROL 115-21 MCG (*SP) INHALER 2 PUFF INHALATION ×2 (08:49→21:38)
[2025-10-04] MEDS: oxyCODONE HCL (*CRX) 5 MG TAB IR FEED TUBE ×2 (09:30→18:33)
[2025-10-04] MEDS: APIXABAN 5 MG TABLET FEED TUBE ×2 (09:30→22:14)
[2025-10-04] MEDS: MULTIVITAMINS THERAPEUTIC TAB (*BKC) 1 TABLET FEED TUBE (09:32)
[2025-10-04] MEDS: MINOCYCLINE HCL 100 MG CAPSULE PO ×2 (09:32→22:14)
--- NOTE | 2025-10-04 12:26 | PCNFU ---
Nutrition Follow-Up Complete: Severe Protein Calorie Malnutrition as related to inadequate protein energy intake with increased protein-energy needs in setting of chronic diseas as evidenced by minimal oral intake for > 1-2 months; significant weight loss 34 ibs (21%) in 1 month; severe subcutaneous fat loss (orbital fat pads) and severe muscle wasting (temporalis, clavicle). Goal:Meet estimated nutritional needs Pt meeting goal via tube feeding Pt current nutrition is Pureed, heart healthy, mildly thick liquids level 2. Tube feeding: Jevity 1.5 @ 55ml/hr providing 1815kcals, 77g protein, 920ml free water. Nutrition recommendation: continue with current plan of care Last recorded weight is 59.6 kg. Bowel Motility: +BM 10/04 Labs Reviewed: Hgb:7.9, HCT:26.5, Alb:2.4, NA:136, Cr:0.45, Glu:126 Meds Noted: eliquis, lactated ringers, MVI Skin: multiple pressure injuries Additional Notes: Pt continues on a pureed diet, minimal intake, Tube feeding running at goal rate and pt tolerating. Tube feeding meeting estimated needs. Eric in place for wounds. Agree with orders. Will monitor weight, labs, skin diet orders, meds every Friday and Friday.
[2025-10-04] MEDS: MONTELUKAST SODIUM 10 MG TABLET FEED TUBE (22:14)
[2025-10-05] VITALS: BP 94/47; PULSE 107; RESP 18; TEMP 36.7; O2SAT 90
[2025-10-05] MEDS: IPRATROPIUM 0.5 MG/ALBUTEROL SULFATE 2.5 MG (BASE) AMPUL.NEB 3 ML INHALATION (03:05)
[2025-10-05 03:10] VITALS: PULSE 101; RESP 16
[2025-10-05 04:00] VITALS: BP 94/49; PULSE 95; RESP 16; TEMP 36.8; O2SAT 95
[2025-10-05 06:29] LABS: Hematocrit 25.0 % (42.0-52.0); Hemoglobin 7.7 g/dL (14.0-18.0); Immature Granulocyte Percent A 1.1 % (0-0.5); Lymphocytes Absolute Auto 3.04 K/mm3 (0.9-3.2); Mean Corpuscular HGB Conc 30.8 g/dl (32-36); Mean Corpuscular Hemoglobin 28.5 pg (26-34); Mean Corpuscular Volume 92.6 fl (80-100); Nucleated Red Blood Cells Absolute Auto 0.000 K/mm3 (0.0-0.012); Nucleated Red Blood Cells Perc 0.0 % (0.0-0.2); Platelet Count Result 435 k/mm3 (150-375); Red Blood Count 2.70 M/mm3 (4.6-6.20); White Blood Count 15.7 K/mm3 (4.5-10.0)
[2025-10-05 06:57] LABS: Alanine Aminotransferase 17 U/L (6-50); Albumin Level 2.5 g/dL (3.5-5.1); Alkaline Phosphatase 84 U/L (38-126); Anion Gap 0 mmol/L (4-12); Aspartate Amino Transferase 21 U/L (17-59); Bilirubin,Total 0.2 mg/dL (0.2-1.3); Blood Urea Nitrogen 12 mg/dL (9-20); Calcium 8.1 mg/dL (8.4-10.2); Carbon Dioxide 30 mmol/L (22-30); Chloride 104 mmol/L (98-107); Estimated CRCL calculation 106 ml/min; Estimated Glomerular Filt Rate > 60; Glucose 120 mg/dL (65-110); Potassium 4.0 mmol/L (3.4-5.0); Sodium 134 mmol/L (137-145); Total Protein 5.7 g/dL (6.3-8.2)
[2025-10-05 08:00] VITALS: BP 110/52; PULSE 97; RESP 18; TEMP 36.8; O2SAT 93
[2025-10-05] MEDS: LACTATED RINGERS 1,000 ML 75 ML IV CONT (08:12)
[2025-10-05] MEDS: APIXABAN 5 MG TABLET FEED TUBE (09:17)
[2025-10-05] MEDS: MINOCYCLINE HCL 100 MG CAPSULE PO (09:18)
[2025-10-05] MEDS: MULTIVITAMINS THERAPEUTIC TAB (*BKC) 1 TABLET FEED TUBE (09:18)
[2025-10-05] MEDS: oxyCODONE HCL (*CRX) 5 MG TAB IR FEED TUBE (10:58)
--- NOTE | 2025-10-05 11:23 | PCRCNOTE ---
Advair and Duoneb not given due to passed schedule time. RN made aware and will call if pt is in need of updraft treatment.
[2025-10-05 12:00] VITALS: BP 128/55; PULSE 107; RESP 18; O2SAT 91
--- NOTE | 2025-10-05 13:10 | WNDPHOTO ---
PHOTO ONLY - See Nursing Notes and/ or assessments for documentation.
--- NOTE | 2025-10-05 13:14 | WNDPHOTO ---
PHOTO ONLY - See Nursing Notes and/ or assessments for documentation.
--- NOTE | 2025-10-05 13:16 | WNDPHOTO ---
PHOTO ONLY - See Nursing Notes and/ or assessments for documentation.
--- NOTE | 2025-10-05 13:16 | WNDPHOTO ---
PHOTO ONLY - See Nursing Notes and/ or assessments for documentation.
--- NOTE | 2025-10-05 13:17 | WNDPHOTO ---
PHOTO ONLY - See Nursing Notes and/ or assessments for documentation.
--- NOTE | 2025-10-05 13:17 | WNDPHOTO ---
PHOTO ONLY - See Nursing Notes and/ or assessments for documentation.
--- NOTE | 2025-10-05 13:19 | WNDPHOTO ---
PHOTO ONLY - See Nursing Notes and/ or assessments for documentation.
--- NOTE | 2025-10-05 14:20 | P.DS_ITS ---
DS: Admitting Diagnosis Discharge Date 10/05/2025 Admitting Diagnosis Sent in from long-term for elevated white blood cell count DS: Discharge Diagnosis Discharge Diagnosis (1) Sepsis: Qualifiers: Sepsis type: sepsis due to unspecified organism Sepsis acute organ dysfunction status: without acute organ dysfunction Qualified Code(s): A41.9 - Sepsis, unspecified organism Code(s): A41.9 - Sepsis, unspecified organism Status: Acute Assessment and Plan: Patient met sepsis criteria with tachycardia, leukocytosis, lactic acidosis and tachypnea in the setting of suspected pneumonia or less likely urinary tract infection. Given the patient had a recent G-tube placed aspiration pneumonia is most likely pathology. -x1 dose of empiric Zosyn given in ED, changed to Unasyn, will continue -Pending BC -Chronic indwelling Mondragon catheter, changed in the ED. Urine yielding turbid appearance, 3+blood, 3+ leuks, 1+bacteria UC multidrug resistant organism, Acinetobacter baumannii -Susceptible to minocycline only, changed abx overnight. ---He did grew out a multidrug resistant organism during his last hospitalization that is resistant to Zosyn but again urinary tract infection is far lower on my differential given the patient's symptomatology with cough, tachypnea and purulent appearing sputum on presentation. -Chest x-ray was relatively clear but of may be early in the infectious process -CRP elevated, will redraw tomorrow for trending -Lactic acid & procalcitonin WDL -Wound team saw pt with thorough assessment, please see note. -VSS -WBC mildly increased today, continue to trend. Appears baseline per record trends. (2) Oropharyngeal dysphagia: Code(s): R13.12 - Dysphagia, oropharyngeal phase Status: Acute Assessment and Plan: G tube in place, tube feeds jevity 1.5 55ml/hr with q4 NS flushes, dietary following. Per RN, pt nml rate of TF 150 ml/hr but since still on LR IVF, will remain on 55 ml/hr per dietary. -Pureed diet with thickened liquids via NH paperwork per nursing (3) Chronic hypoxic respiratory failure, on home oxygen therapy: Code(s): J96.11 - Chronic respiratory failure with hypoxia; Z99.81 - Dependence on supplemental oxygen Status: Acute Assessment and Plan: It appears that the patient was discharged on oxygen to the long-term. The patient is only on 2 L oxygen where he was on 4 L at the time of discharge previously. No evidence of acute failure. Will continue supplemental oxygen and home inhalers with p.r.n. DuoNebs. Will also provide Acapella for pulmonary toilet. (4) Fecal impaction in rectum: Code(s): K56.41 - Fecal impaction Status: Acute Assessment and Plan: Via CT Imaging also demonstrates fecal impaction. Patient refused manual disimpaction when he was in the ER. Patient is resistant to having an enema. Subsequently will start the patient on lactulose b.i.d. for 2 days then re-evaluate (x2 days on 10/01). Will also add MiraLax daily. Bisaxodyl supp PRN -Multiple large BMs 09/30, D/C lactulose (5) Multiple sclerosis: Code(s): G35 - Multiple sclerosis Status: Chronic Assessment and Plan: Patient also does have multiple decubitus ulcers but none of which appear to be acutely infected. Will order wound care consult for recommendations on dressings and management. 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 (6) Pulmonary embolism: Onset Date: 09/06/25 Qualifiers: Pulmonary embolism type: other Chronicity: acute Acute cor pulmonale presence: without acute cor pulmonale Qualified Code(s): I26.99 - Other pulmonary embolism without acute cor pulmonale Code(s): I26.99 - Other pulmonary embolism without acute cor pulmonale Status: Acute Assessment and Plan: Patient has had a recent pulmonary embolism and is home Eliquis will be continued. (7) Failure to thrive in adult: Code(s): R62.7 - Adult failure to thrive Status: Acute Assessment and Plan: Patient does have chronic failure to thrive chronic protein calorie malnutrition. Will resume the patient's home tube feeds. Will also allow the patient oral feeds as tolerated with modified consistency of pureed diet with thickened liquids with aspiration precautions in place. (8) Abnormal urinalysis: Code(s): R82.90 - Unspecified abnormal findings in urine Status: Acute Assessment and Plan: The patient's Mondragon catheter was exchanged in the ER. UC final resulted in multidrug resistant organism, Acinetobacter baumannii -Susceptible to minocycline only, changed abx overnight. (9) Severe malnutrition: Code(s): E43 - Unspecified severe protein-calorie malnutrition Status: Acute Assessment and Plan: See above. (10) Decubitus ulcer: Code(s): L89.90 - Pressure ulcer of unspecified site, unspecified stage Status: Acute Assessment and Plan: R hip: Unstageable pressure injury. Wound bed Covered and black eschar with no signs and symptoms of infection. Right ischium: Unstageable pressure injury. Wound bed Covered and black eschar with no signs and symptoms of infection. Sacrum: Stage IV pressure ulcer, surgically debrided approximately 2 months ago. Wound bed is 75% healing pink tissue and 25% yellow slough with a small area of bone exposed at the sacrum. there is a noted deep tissue injury in the wound bed that measures 3 cm in length by 1 cm and width. No signs and symptoms of infection. Left hip: Unstageable pressure injury noted to the left hip. Wound bed is 100% black eschar. Distal popped blister that is tachy and superficial measuring 1.5 cm in length by 5 cm by width and 0.1 cm in depth. Left lower medial leg: Arterial/diabetic ulcer to the left medial lower leg. No signs symptoms of infection to the surrounding tissue. Left posterior heel: Unstageable pressure injury to the left posterior year old. Two separate areas of black eschar with a small area of pink tissue . Length 4.8 cm, 3 cm width, 0.2 cm depth. Right lateral ankle: Unstageable pressure injury noted to the right lateral ankle. Wound bed is covered in black eschar with scant exudate present. No si gn and symptoms of infection noted. Right lateral foot: Chronic diabetic/ arterial ulcer present to the lateral aspect of the right foot. Loose eschar came off pressor to reveal wound bed. Wound is 100% yellow slough with no signs and symptoms of infection present. Right medial foot: Deep tissue injury present to the right medial foot. Ulcer covered with a foam border dressing. -wound care following, tx via their note. DS: Summary Hospital Course Hospital Course: PT discharged to [facility] with [facility] care from [facility] as per daughters wishes Status at Discharge Cognitive/behavioral status at discharge: poor prognosis Time Spent with Patient Time attestation: Total time spent providing and/or coordinating discharge services:55 minutes Exam Const: Other: No acute distress, chronically ill-appearing, thin body habitus HENMT: Other: Mucous membranes are tacky, no oral pharyngeal erythema poor dentition, mild temporal wasting, nasal cannula in place Eyes: Other: Pupils are equal and reactive, no scleral icterus Neck: Other: No JVD, no lymphadenopathy Resp: Other: Diminished BS throughout, poor effort from pt due to pain. No increased work of breathing, no longer tachypneic. Cardio: Rate: regular rate Rhythm: regular rhythm Other: 2+ pulses bilateral radial GI: Other: Firm with anasarca of the abdominal wall, distended, G-tube present, hypoactive bowel sounds, nontender Skin: Other: Numerous decubitus ulcers in various stages. Please see nursing documentation for photos in size, some of the decubitus ulcers are still covered in eschar most notably the left hip, the wounds on the sacrum have areas of open wound but still have some areas of eschar as well, he of as other wounds on the left knight, right knight, right hip and left knee Neuro: Other: A&O x4 Extrem: Other: Numerous wounds as discussed above, anasarca of the lower extremities Psych: Other: Pleasant and cooperative but confused, perseverating with tangential thought process, poor judgment and insight DS: Data Data Completed and Pending Labs on day of discharge: Labs from last 24 hours 10/05/25 10/05/25 10/05/25 12:06 06:19 05:34 WBC 15.7 H RBC 2.70 L Hgb 7.7 L Hct 25.0 L MCV 92.6 MCH 28.5 MCHC 30.8 L RDW 16.8 H Plt Count 435 H MPV 9.3 Immature Gran % (Auto) 1.1 H Neut % (Auto) 66.8 Lymph % (Auto) 19.3 [place] % (Auto) 8.6 H Eos % (Auto) 3.9 Baso % (Auto) 0.3 Lymph # (Auto) 3.04 [place] # (Auto) 1.4 H Eos # (Auto) 0.6 H Baso # (Auto) 0.1 Abs Immat Gran (auto) 0.18 H Absolute Neuts (auto) 10.5 H Absolute Nucleated RBC 0.000 Nucleated RBC % 0.0 Sodium 134 L Potassium 4.0 Chloride 104 Carbon Dioxide 30 Anion Gap 0 L BUN 12 Creatinine 0.47 L Estim Creat Clear Calc 106 Estimated GFR > 60 Glucose 120 H POC Capillary Glucose 121 H 136 H Calcium 8.1 L Total Bilirubin 0.2 AST 21 ALT 17 Alkaline Phosphatase 84 Total Protein 5.7 L Albumin 2.5 L 10/05/25 10/04/25 10/04/25 00:31 19:45 18:38 WBC RBC Hgb Hct MCV MCH MCHC RDW Plt Count MPV Immature Gran % (Auto) Neut % (Auto) Lymph % (Auto) [place] % (Auto) Eos % (Auto) Baso % (Auto) Lymph # (Auto) [place] # (Auto) Eos # (Auto) Baso # (Auto) Abs Immat Gran (auto) Absolute Neuts (auto) Absolute Nucleated RBC Nucleated RBC % Sodium Potassium Chloride Carbon Dioxide Anion Gap BUN Creatinine Estim Creat Clear Calc Estimated GFR Glucose POC Capillary Glucose 137 H 137 H 118 H Calcium Total Bilirubin AST ALT Alkaline Phosphatase Total Protein Albumin Discharge Plan Discharge Attending physician on discharge: Nelsy Mendoza Consulting providers: Erika Paredes Discharging Clinician: Nelsy Mendoza Anticipated Discharge Date/Time: 10/05/25 14:17 Patient Disposition: Hospice - Medical Facility Activity: no preference Diet: no preference Discharge Instructions: DC TO HOSPICE [facility] with [facility] Patient Instructions: Apixaban (By mouth), Pressure Injury (GEN), Catheter- associated Urinary Tract Infection (GEN), Chronic Wounds (GEN), Acute Wounds (GEN) Patient Language: Mohawk Stand Alone Forms: General Discharge Information Follow-up/Referrals: [facility] [Provider Group, Hospice] Discharge Medications: Continued Fleet Enema 19-7 gram/118 mL enema 118 ml RECTAL DAILY PRN (Reason: constipation) oxycodone 5 mg tablet 5 mg feeding tube Q6H PRN (Reason: pain) Discontinued ipratropium-albuterol 0.5 mg-3 mg(2.5 mg base)/3 mL solution for nebulization 3 ml INHALATION Q6H PRN (Reason: copd) clobetasol 0.05 % cream 1 applic TOPICAL BID Rx Instructions: APPLY TO LEGS TOPICALLY TWO TIMES A DAY FOR RASH montelukast [Singulair] 10 mg tablet 10 mg feeding tube HS geriatric multivitamin-min Capsule 1 cap PO DAILY ascorbic acid (vitamin C) 500 mg capsule, extended release 500 mg PO DAILY Santyl 250 unit/gram ointment 1 applic topical DAILY Rx Instructions: Apply to right lateral foot topically daily for wound. Apply to sacrum, coccyx topically every day shift for wounds. Cleanse sacrum and coccyx with wound cleanser or NS, apply santyl to wound bed cover with dakins moistened fluffed gauze, cover with sacral border foam dressing. bisacodyl 10 mg Suppository 10 mg RECTAL QAM PRN (Reason: Constipation) Qty: 12 0RF magnesium citrate [Citroma] Solution 296 ml feeding tube DAILY PRN (Reason: constipation) magnesium hydroxide [Milk of Magnesia] 400 mg/5 mL suspension 30 ml feeding tube DAILY PRN (Reason: constipation) Rx Instructions: GIVE 30ML BY MOUTH NEEDED FOR CONSTIPATION AT BEDTIME IF NOT BM IN 3 DAYS fluticasone propion-salmeterol [Advair Diskus] 250-50 mcg/dose blister with device 2 inh inhalation Q12H dimethyl fumarate 120 mg capsule,delayed release(DR/EC) 120 mg PO BID Rx Instructions: UNTIL 10/03/2025 AFTER 10/03/2025 INCREASE 240 MG BID Eliquis 5 mg Tablet 5 mg feeding tube Q12HR Rx Instructions: Start date 09/29/2025 Date of admission: 09/29/25 17:55 Primary Care Provider: Gino Morin Admitting Provider: Analilia Stephenson Attending physician on admission: Analilia Stephenson Condition: Guarded Prognosis
== END 2025-10-05 15:15 | disposition hospice, inpatient (51) | DRG 871 ==
LOC: ANHED 16:51 → ANH3MEDSUR 21:17
PROVIDERS: Admitting Provider Internal Medicine; Emergency Provider Emergency Medicine; PCP Psychiatry & Neurology Neurology; Visit Provider Family Medicine
DX: A41.9 Sepsis, unspecified organism (principal); E43 Unspecified severe protein-calorie malnutrition; J69.0 Pneumonitis due to inhalation of food and vomit; L89.154 Pressure ulcer of sacral region, stage 4; J44.0 Chronic obstructive pulmonary disease with (acute) lower respiratory infection; J96.11 Chronic respiratory failure with hypoxia; E87.20 Acidosis, unspecified; Z68.1 Body mass index [BMI] 19.9 or less, adult; L97.828 Non-pressure chronic ulcer of other part of left lower leg with other specified severity; L97.518 Non-pressure chronic ulcer of other part of right foot with other specified severity; E05.90 Thyrotoxicosis, unspecified without thyrotoxic crisis or storm; E11.622 Type 2 diabetes mellitus with other skin ulcer; E11.621 Type 2 diabetes mellitus with foot ulcer; G35.D Multiple sclerosis, unspecified; L89.210 Pressure ulcer of right hip, unstageable; L89.310 Pressure ulcer of right buttock, unstageable; L89.620 Pressure ulcer of left heel, unstageable; L89.220 Pressure ulcer of left hip, unstageable; L89.510 Pressure ulcer of right ankle, unstageable; E86.1 Hypovolemia; K56.41 Fecal impaction; R62.7 Adult failure to thrive; Z66 Do not resuscitate; I95.9 Hypotension, unspecified; R13.12 Dysphagia, oropharyngeal phase; Z96.0 Presence of urogenital implants; Z99.81 Dependence on supplemental oxygen; Z22.322 Carrier or suspected carrier of Methicillin resistant Staphylococcus aureus; Z87.891 Personal history of nicotine dependence; Z86.14 Personal history of Methicillin resistant Staphylococcus aureus infection; Z86.711 Personal history of pulmonary embolism; Z79.01 Long term (current) use of anticoagulants; Z79.891 Long term (current) use of opiate analgesic
CPT/HCPCS: 36415; 71045; 74177; 80048; 80053; 81001; 82803; 82948; 83605; 84145; 85025; 86140; 87040; 87086; 87186; 87641; 94640; 94667; 96361; 96365; 99282; 99285; A9270; G0378; J0295; J2543; J7030; J7120; Q9967